=== PATIENT | female | born 1935 | race Caucasian/White ===

== ENCOUNTER 2018-11-06 21:55 | Inpatient (IN) | payer MEDICARE, OTHER ==
[~2018-11-06] VITALS: Ht 144.8 cm; Wt 75.0 kg
[~2018-11-06 21:55] MED LIST: ASPI-535 PO; ESCITALOPRAM OXALATE; FOLIC ACID; HYDRALAZINE; LEVO1POW MC; LEVO25TA9 PO; LORA-396 PO; LOSA1TAB29 PO; METH2.5T21 PO; METOPROLOL; OMEP20CA16 PO; PARO-37 PO; REMI IV; SIMV20TA2 PO; VASCEPA; VITAMIN D
[2018-11-07] MEDS ORDERED: ONDANSETRON 4 MG INJ IV STA (01:02)
[2018-11-07] MEDS ORDERED: morphine 2 MG INJ IV STA (01:02)
[2018-11-07] MEDS ORDERED: SOD CHLORIDE 0.9% 500 ML IV STA (01:02)
[2018-11-07] MEDS ORDERED: metroNIDAZOLE 500 MG/NS (PMX) 100 ML IVPB ONE (04:30)
[2018-11-07] MEDS ORDERED: CIPROFLOXACIN 400MG/D5W 200 ML IVPB ONE (04:30)
--- NOTE | 2018-11-07 04:48 | ERD ---
ER Documentation Chief Complaint Chief Complaint PT reports vomiting and diarrhea x 2 days HPI Is a very pleasant 83 female comes in with vomiting during the past 2 days. She has episodes of vomiting nonbilious and nonbloody. 2 episodes of diarrhea nonbloody nonbloody ROS All systems reviewed and are negative except as per history of present illness. Medications Home Meds Reported Medications Levocetirizine Dihydrochloride (LEVOCETIRIZINE DIHYDROCHLORIDE) 1 Gm Powder, 1 G M MC 05/03/16 [Hydralazine] No Conflict Check 05/03/16 [Metoprolol] No Conflict Check 05/03/16 [Escitalopram Oxalate] No Conflict Check 05/03/16 [Vascepa] No Conflict Check 05/03/16 [Vitamin D] No Conflict Check 05/03/16 [Folic Acid] No Conflict Check 05/03/16 Infliximab (Remicade) 100 Mg Soln, 100 MG IV 6 WEEKS 12/14/11 Levothyroxine Sodium (Levothroid) 25 Mcg Tablet, 25 MCG PO DAILY 12/14/11 Simvastatin (Simvastatin) 20 Mg Tablet, 20 MG PO DAILY 12/14/11 Lorazepam* (Ativan*) 0.5 Mg Tablet, 0.5 MG PO DAILY 12/14/11 Paroxetine Hcl* (Paroxetine*) 20 Mg Tablet, 20 MG PO DAILY 12/14/11 Omeprazole* (Omeprazole*) 20 Mg Capsule.dr, 20 MG PO AC MEALS AND BEDTIME 12/14/11 Losartan/Hydrochlorothiazide (Hyzaar 100-25 Tablet) 1 Tab Tablet, 1 TAB PO DAILY 12/14/11 Methotrexate Sodium (Methotrexate) 2.5 Mg/Dose-Pack Tab.ds.pk, 2.5 MG PO DAILY 12/14/11 Aspirin Ec (Aspir 81) 81 Mg Tablet.dr, 81 MG PO DAILY 12/14/11 Allergies Allergies: Coded Allergies: No Known Drug Allergies (Verified Allergy, 06/22/13) PMhx/Soc History of Surgery: Yes (PACEMAKER IMPLANT, BACK SURGERY, CATARACT SURGERY) Anesthesia Reaction: No Hx Neurological Disorder: No Hx Respiratory Disorders: No Hx Cardiac Disorders: Yes (HYPERTENSION, PACEMAKER,afib) Hx Psychiatric Problems: Yes (DEPRESSION) Hx Miscellaneous Medical Probl: Yes (HYPERLIPIDEMIA) Hx Alcohol Use: No Hx Substance Use: No Hx Tobacco Use: No Smoking Status: Never smoker Physical Exam Vitals Vital Signs Date Temp Pulse Resp B/P (MAP) Pulse Ox O2 O2 Flow FiO2 Time Delivery Rate 11/07/18 101 14 129/82 98 Room Air 03:30 (98) 11/06/18 97.6 115 24 160/80 100 22:50 (106) Physical Exam Const: No acute distress Head: Atraumatic Eyes: Normal Conjunctiva ENT: Normal External Ears, Nose and Mouth. Neck: Full range of motion. No meningismus. Resp: Clear to auscultation bilaterally Cardio: Regular rate and rhythm, no murmurs Abd: Soft, non tender, non distended. Normal bowel sounds Skin: No petechiae or rashes Back: No midline or flank tenderness Ext: No cyanosis, or edema Neur: Awake and alert Psych: Normal Mood and Affect Result Diagram: 11/07/18 01311/07/18 0130 Results 24 hrs Laboratory Tests Test 11/07/18 01:30 White Blood Count 8.5 10^3/ul Red Blood Count 4.04 10^6/ul Hemoglobin 12.9 g/dl Hematocrit 39.3 % Mean Corpuscular Volume 97.3 fl Mean Corpuscular Hemoglobin 31.9 pg Mean Corpuscular Hemoglobin Concent 32.8 g/dl Red Cell Distribution Width 19.0 % Platelet Count 147 10^3/UL Mean Platelet Volume 11.4 fl Immature Granulocytes % 0.200 % Neutrophils % 61.0 % Lymphocytes % 32.6 % Monocytes % 6.0 % Eosinophils % 0.1 % Basophils % 0.1 % Nucleated Red Blood Cells % 0.2 /100WBC Immature Granulocytes # 0.020 10^3/ul Neutrophils # 5.2 10^3/ul Lymphocytes # 2.8 10^3/ul Monocytes # 0.5 10^3/ul Eosinophils # 0.0 10^3/ul Basophils # 0.0 10^3/ul Nucleated Red Blood Cells # 0.0 10^3/ul Sodium Level 139 mmol/L Potassium Level 3.6 mmol/L Chloride Level 102 mmol/L Carbon Dioxide Level 26 mmol/L Anion Gap 11 Blood Urea Nitrogen 43 mg/dl Creatinine 1.53 mg/dl Est Glomerular Filtrat Rate mL/min mL/min Glucose Level 106 mg/dl Calcium Level 8.3 mg/dl Total Bilirubin 1.0 mg/dl Direct Bilirubin 0.00 mg/dl Indirect Bilirubin 1.0 mg/dl Aspartate Amino Transf (AST/SGOT) 95 IU/L Alanine Aminotransferase (ALT/SGPT) 120 IU/L Alkaline Phosphatase 104 IU/L Troponin I 0.045 ng/ml Total Protein 6.4 g/dl Albumin 3.5 g/dl Globulin 2.90 g/dl Albumin/Globulin Ratio 1.20 Lipase 76 U/L Current Medications Medications Dose Sig/Eze Start Time Status Last (Trade) Ordered Route PRN Stop Time Admin Dose Reason Admin Sodium 500 ml @ Q1H STAT 11/07/18 DC 11/07/18 Chloride 500 mls/hr IV 01:02 11/07/18 01:02 02:01 Morphine 2 mg ONCE STAT 11/07/18 DC Sulfate IV 01:02 11/07/18 (morphine) 01:03 Ondansetron 4 mg ONCE STAT 11/07/18 DC HCl (Zofran IV 01:02 11/07/18 Inj) 01:03 200 ml @ ONCE ONCE 11/07/18 Ciprofloxacin 200 mls/hr IVPB 04:30 11/07/18 / Dextrose 05:29 100 ml @ ONCE ONCE 11/07/18 11/07/18 Metronidazole 100 mls/hr IVPB 04:30 11/07/18 04:42 05:29 Ondansetron 4 mg BRIDGE ORDER 11/07/18 HCl (Zofran PRN IV 05:00 11/08/18 Inj) NAUSEA/VOMITI 04:59 NG 650 mg ER BRIDGE 11/07/18 Acetaminophen PRN PO 05:00 11/08/18 (Tylenol .MILD PAIN 04:59 Tab) 1-3 OR TEMP Procedures/MDM EKG: Rate/Rhythm: Normal Sinus Rhythm QRS, ST, T-waves: No changes consistent w/ acute ischemia Impression: No evidence of ischemia or arrhythmia Chest X-ray 1V Interpreted by me: Soft Tissue: No acute abnormalities Bones: No acute abnormalities Mediastinum/Cardiac Silhouette/Lungs: No acute abnormalities Medical decision making: This is an 83-year-old female who comes in with evidence of colitis on CT. She is on Cipro Flagyl. Patient will be admitted to Dr. Dempsey who kindly accepted the patient to his service Departure Diagnosis: Primary Impression: Colitis Condition: Serious JAZZMINE CORRALES Nov 07, 2018 04:48
[2018-11-07] MEDS ORDERED: ACETAMINOPHEN 325 MG TAB PO PRN ×2 (05:00→10:00)
[2018-11-07] MEDS ORDERED: ONDANSETRON 4 MG INJ IV PRN (05:00)
[2018-11-07] MEDS ORDERED: DICL75TA2 PO (05:13)
[2018-11-07] MEDS ORDERED: CHOL200073 PO (05:13)
[2018-11-07] MEDS ORDERED: AMLO5TAB4 PO (05:13)
[2018-11-07] MEDS ORDERED: FURO20TA3 PO (05:13)
[2018-11-07] MEDS ORDERED: ICOS1CAP PO (05:13)
[2018-11-07] MEDS ORDERED: LOSA100T15 PO (05:13)
[2018-11-07] MEDS ORDERED: ESOM20CA37 PO (05:13)
[2018-11-07] MEDS ORDERED: METO-407 PO (05:13)
[2018-11-07] MEDS ORDERED: DONE10TA7 PO (05:13)
[2018-11-07] MEDS ORDERED: AMIO200T4 PO (05:13)
[2018-11-07] MEDS ORDERED: LINA145C PO (05:13)
[2018-11-07] MEDS ORDERED: EZET10TA31 PO (05:13)
[2018-11-07] MEDS ORDERED: ESCI20TA38 PO (05:13)
[2018-11-07] MEDS ORDERED: FOLI-49 PO (05:13)
[2018-11-07] MEDS ORDERED: CALC600T24 PO (05:13)
[2018-11-07] MEDS ORDERED: APIX2.5T PO (05:13)
[2018-11-07] MEDS ORDERED: FER325 PO (05:13)
[2018-11-07 08:42] VITALS: BP 119/73; PULSE 110; RESP 20
[2018-11-07 09:17] VITALS: Ht 144.8 cm; Wt 75.0 kg
[2018-11-07] MEDS ORDERED: SOD CHLORIDE 0.9% 500 ML IV ONE (10:00)
[2018-11-07] MEDS ORDERED: METOPROLOL 25 MG TAB PO SCH (10:30)
[2018-11-07] MEDS ORDERED: LOPERAMIDE 2 MG CAP PO PRN (10:30)
--- NOTE | 2018-11-07 11:37 | HP ---
Date/Time of Note Date/Time of Note DATE: 11/07/18 TIME: 11:27 Assessment/Plan VTE Prophylaxis SCD applied (from Nsg): Yes Pharmacological prophylaxis: apixaban Lines/Catheters IV Catheter Type (from Nrsg): Saline Lock Assessment/Plan Assessment/Plan -Nausea vomiting and diarrhea for 2 days. Will obtain stool for C. difficile, o va and parasites. Dr. Merchant is asked to see patient in gastroenterology consultation. -Colitis per CT scan. Continue Levaquin and Flagyl. -UTI per UA, follow-up on urine culture -CHF, continue Lasix -Atrial fibrillation, continue Eliquis and metoprolol -Hypertension, continue metoprolol Norvasc and Cozaar -PPM -Hypothyroidism -Rheumatoid arthritis Home medication reviewed and discussed with daughter in details. Further recommendations based on clinical course. Plan of care discussed with Dr. Rayo. Result Diagram: 11/07/18 0130 11/07/18 0130 Results 24hrs Laboratory Tests Test 11/07/18 01:30 11/07/18 09:36 White Blood Count 8.5 Red Blood Count 4.04 L Hemoglobin 12.9 Hematocrit 39.3 Mean Corpuscular Volume 97.3 Mean Corpuscular Hemoglobin 31.9 Mean Corpuscular Hemoglobin Concent 32.8 Red Cell Distribution Width 19.0 H Platelet Count 147 Mean Platelet Volume 11.4 H Immature Granulocytes % 0.200 Neutrophils % 61.0 Lymphocytes % 32.6 Monocytes % 6.0 Eosinophils % 0.1 Basophils % 0.1 Nucleated Red Blood Cells % 0.2 H Immature Granulocytes # 0.020 Neutrophils # 5.2 Lymphocytes # 2.8 Monocytes # 0.5 Eosinophils # 0.0 Basophils # 0.0 Nucleated Red Blood Cells # 0.0 Sodium Level 139 Potassium Level 3.6 Chloride Level 102 Carbon Dioxide Level 26 Anion Gap 11 Blood Urea Nitrogen 43 H Creatinine 1.53 H Est Glomerular Filtrat Rate mL/min Glucose Level 106 Calcium Level 8.3 L Total Bilirubin 1.0 Direct Bilirubin 0.00 Indirect Bilirubin 1.0 Aspartate Amino Transf (AST/SGOT) 95 H Alanine Aminotransferase (ALT/SGPT) 120 H Alkaline Phosphatase 104 Troponin I 0.045 Total Protein 6.4 Albumin 3.5 Globulin 2.90 Albumin/Globulin Ratio 1.20 Lipase 76 Urine Color YELLOW Urine Clarity CLEAR Urine pH 5.[address] 1.017 Urine Ketones NEGATIVE Urine Nitrite NEGATIVE Urine Bilirubin NEGATIVE Urine Urobilinogen NEGATIVE Urine Leukocyte Esterase 1+ H Urine Microscopic RBC 1 Urine Microscopic WBC 36 H Urine Bacteria FEW A Urine Hemoglobin NEGATIVE Urine Glucose NEGATIVE Urine Total Protein NEGATIVE HPI/ROS Admit Date/Time Admit Date/Time Nov 07, 2018 at 04:47 Hx of Present Illness Patient is 83-year-old female with history of congestive heart failure, hypertension, atrial fibrillation, PPM, hyperlipidemia, thyroidism, dementia, rheumatoid arthritis was brought from home for complaints of vomiting and diarrhea for 2 days and generalized weakness. Patient follows with Dr. Kamara in cardiology consultation as an outpatient and according to patient's daughters had recent angiogram which was negative. Patient also complains of productive sputum however no cough patient denies any fever chills. Patient had difficulty urinating earlier today however currently is able to urinate. Patient underwent CT of the abdomen and pelvis which revealed nonspecific colitis and right basilar atelectasis/infiltrate, and septal nodular contour of the liver which can be seen in settings of cirrhosis. Patient denies history of hepatitis or alcohol use. Analysis is positive for leukocyte esterase and bacteria. Patient is admitted for further evaluation and management. ROS 12 point review of system is negative except for what mentioned in HPI PMH/Family/Social Past Medical History Medical History: congestive heart failure, high cholesterol, hypertension, hypothyroid, other (PPM, atrial fibrillation) Medications Current Medications Potassium Chloride/Dextrose/ Sod Cl 1,000 ml @ 75 mls/hr [id number] IV ; Start 11/07/18 at 10:00 Ciprofloxacin/ Dextrose 200 ml @ 200 mls/hr Q24H IVPB ; Start 11/08/18 at 03:00 Metronidazole 100 ml @ 100 mls/hr Q8 IVPB ; Start 11/07/18 at 14:00 Acetaminophen (Tylenol Tab) 650 mg Q6H PRN PO MILD PAIN(1-3)OR ELEVATED TEMP; Start 11/07/18 at 10:00 Metoprolol Tartrate (Lopressor) 25 mg BID PO ; Start 11/07/18 at 10:30 Loperamide HCl (Imodium Cap) 2 mg QID PRN PO DIARRHEA; Start 11/07/18 at 10:30 Coded Allergies: No Known Drug Allergies (Unverified Allergy, Unknown, 11/07/18) Past Surgical History Past Surgical Hx: other (Status post PPM placement 2014, status post low back surgery in 2009 status post bilateral cataract surgery) Family History Significant Family History: no pertinent family hx Social History Alcohol Use: none Smoking Status: Never smoker Drug Use: none Exam/Review of Systems Vital Signs Vitals Vital Signs Date Temp Pulse Resp B/P (MAP) Pulse Ox O2 O2 Flow FiO2 Time Delivery Rate 11/07/18 97.6 110 20 119/73 98 Room Air 08:42 (88) Exam Constitutional: alert, oriented Head: normocephalic Respiratory: clear to auscultation Cardiovascular: irregular rhythm, other (L chest PPM) Gastrointestinal: soft, non-tender Musculoskeletal: nl extremities to inspection Extremities: normal pulses Neurological: nl mental status OSCAR GAYTAN Nov 07, 2018 11:37
[2018-11-07 11:51] VITALS: BP 128/72; PULSE 106
[2018-11-07] MEDS: D5W-0.45 NACL + KCL 20 MEQ 1,000 ML IV SCH (11:53)
[2018-11-07] MEDS ORDERED: METOPROLOL 100 MG TAB PO SCH (12:00)
[2018-11-07] MEDS ORDERED: LEVOTHYROXINE 25 MCG TAB PO SCH (12:00)
[2018-11-07] MEDS: metroNIDAZOLE 500 MG/NS (PMX) 100 ML IVPB SCH ×2 (14:06→22:15)
[2018-11-07] MEDS: FERROUS SULFATE (EC) 325 MG TAB PO SCH ×2 (14:07→21:13)
[2018-11-07] MEDS: APIXABAN 5 MG TABLET PO SCH ×2 (14:07→21:13)
[2018-11-07 15:12] VITALS: BP 124/56; PULSE 105; RESP 18
[2018-11-07 20:30] VITALS: BP 108/65; PULSE 102; RESP 18
--- NOTE | 2018-11-07 20:49 | CONS ---
DATE OF ADMISSION: 11/07/2018 DATE OF CONSULTATION: 11/07/2018 Thank you for asking me to evaluate your patient who is a pleasant 83-year-old female who comes to [facility] complaining of nausea, vomiting and diarrhea of 2 days' duration. The patient denies any abdominal pain. Nausea and vomiting have subsided. There is no more diarrhea, no fever, no chills. Her only complaint is generalized weakness. The patient was seen 3 days ago by the composing room supervisor as an outpatient, had angiogram which was normal as per the daughter. The patient has got a pacemaker. No history of eating any restaurant food or eating outside. No circumstantial evidence of food poiso gabriela. No travel to the foreign country. She had a CAT scan of the abdomen and pelvis which showed n ondistended right colon rather than a mild colitis. SOCIAL HISTORY: No history of alcohol, recreational drug or smoking. REVIEW OF SYSTEMS: Otherwise negative. PAST MEDICAL HISTORY: Hypothyroidism, status post pacemaker insertion, atrial fibrillation, history of CHF and dyslipidemia. MEDICATIONS: All reviewed. She was on: 1. Cipro. 2. Flagyl. PHYSICAL EXAMINATION: GENERAL: Looks good for her age, well built, nourished, not in distress. VITAL SIGNS: Stable. HEENT: Unremarkable. NECK: Supple. No thyromegaly. No lymphadenopathy. CARDIOVASCULAR SYSTEM: No murmur, gallop or click. LUNGS: Clear. ABDOMEN: Benign. EXTREMITIES: No edema. CENTRAL NERVOUS SYSTEM: Grossly within normal limit. IMPRESSION: 1. Nausea, vomiting and diarrhea which have subsided now, most probably related to viral infection o r of infectious etiology. 2. Atrial fibrillation for which she is on Eliquis. 3. Status post pacemaker insertion. 4. Dyslipidemia. 5. Hypothyroidism. 6. Hypertension. PLAN: Plan is to continue Cipro and Flagyl. We will send for a TSH level to find out the cause of h er chronic fatigue and make sure the patient is not hypothyroid. Encouraged p.o. hydration and p.o. feeding. We will review all the cultures and C. difficile report which has been sent. Dictated By: TONY HERNANDEZ/CHRISTIE Conf#: [id number] DID#: [id number] CC: OSCAR GAYTAN NP; REJI KAUFFMAN MD;*EndCC*
[2018-11-07] MEDS: METOPROLOL 50 MG TAB PO SCH ×2 (21:00→22:41)
[2018-11-07] MEDS: FUROSEMIDE 20 MG TAB PO SCH (22:29)
[2018-11-08] VITALS (15 sets, daily range): BP systolic 102–138; BP diastolic 64–97; PULSE 73–121; RESP 16–28
[2018-11-08] MEDS ORDERED: CIPROFLOXACIN 400MG/D5W 200 ML IVPB SCH (03:00)
[2018-11-08] MEDS: metroNIDAZOLE 500 MG/NS (PMX) 100 ML IVPB SCH (06:00)
[2018-11-08] MEDS: PANTOPRAZOLE (EC) 40 MG TAB PO SCH (06:14)
[2018-11-08] MEDS: D5W-0.45 NACL + KCL 20 MEQ 1,000 ML IV SCH ×2 (06:39→14:09)
[2018-11-08] MEDS: LEVOTHYROXINE 25 MCG TAB PO SCH (06:42)
[2018-11-08] MEDS ORDERED: LOSARTAN 50 MG TAB PO SCH (09:00)
[2018-11-08] MEDS: FERROUS SULFATE (EC) 325 MG TAB PO SCH ×3 (09:15→21:04)
[2018-11-08] MEDS: EZETIMIBE 10 MG TAB PO SCH (09:15)
[2018-11-08] MEDS: METOPROLOL 50 MG TAB PO SCH (09:15)
[2018-11-08] MEDS: AMIODARONE 200 MG TAB PO SCH (09:15)
[2018-11-08] MEDS: CHOLECALCIFEROL 2,000 UNIT CAP PO SCH (09:16)
[2018-11-08] MEDS: DONEPEZIL 10 MG TAB PO SCH (09:16)
[2018-11-08] MEDS: FOLIC ACID 1 MG TAB PO SCH (09:16)
[2018-11-08] MEDS: APIXABAN 5 MG TABLET PO SCH ×2 (09:17→21:06)
[2018-11-08] MEDS: ESCITALOPRAM 10 MG TAB PO SCH (09:17)
[2018-11-08] MEDS: FUROSEMIDE 20 MG TAB PO SCH (09:17)
[2018-11-08] MEDS ORDERED: METOPROLOL 50 MG TAB PO ONE (11:00)
[2018-11-08] MEDS ORDERED: METOPROLOL 100 MG TAB PO ONE (14:30)
--- NOTE | 2018-11-08 14:34 | CONS ---
Assessment/Plan Assessment/Plan Hospital Course (Demo Recall) Atrial fibrillation with initially rapid ventricular rates, improved Mild acute decompensated congestive heart failure Possible colitis Hypertension Dyslipidemia History of pacemaker As per daughter, patient was brought to the hospital secondary to heart rates in the 120s to 150s. Patient was asymptomatic but this was discovered by the daughter who checks her mother's vitals routinely Patient undergoing evaluation for possible colitis Heart rates currently improved, as per the daughter, patient was on Lopressor 200 mg daily, would adjust her milligrams twice daily for better 24-hour co verage Furthermore, daughter tells me the patient was at [facility] the end of October underwent a cardiac catheterization and as per the daughter, it was normal Will check echocardiogram No evidence of significant volume overload the current time, given elevated BUN/creatinine ratio, would continue maintenance diuretics at the current time Consultation Date/Type/Reason Admit Date/Time Nov 07, 2018 at 04:47 Type of Consult Cardiology Reason for Consultation Atrial fibrillation Date/Time of Note DATE: 11/08/18 TIME: 14:29 Hx of Present Illness This is an 83-year-old female with past mental history of atrial fibrillation on anticoagulation, congestive heart failure, pacemaker who presents emergency room secondary to increased lower extremity edema as well as rapid heart rates. When asked patient's daughter why she brought the patient to hospital, she tells me her heart rate was in the 120s to 150s at home. Patient was asymptomatic. Patient denies any palpitations, chest pain or shortness of breath. Patient's daughter has noticed increased lower extremity swelling which has improved with Lasix. Patient denies any abdominal pain currently, nausea or vomiting. 12 point review of systems was performed with all pertinent positives and negatives mentioned above and all else is negative Past Medical History Atrial fibrillation Medical History: congestive heart failure, hypertension Home Meds Reported Medications Icosapent Ethyl (VASCEPA) 1 Gm Capsule, 1 GM PO QID, CAP 11/07/18 Linaclotide (LINZESS) 145 Mcg Capsule, 145 MCG PO DAILY, #30 CAP 11/07/18 Furosemide* (Furosemide*) 20 Mg Tablet, 20 MG PO DAILY, #60 TAB 11/07/18 Ferrous Sulfate* (Ferrous Sulfate*) 325 Mg Tabec, 325 MG PO TID, TAB 11/07/18 Diclofenac Sodium* (Diclofenac Sodium*) 75 Mg Tablet.dr, 75 MG PO BID, #60 TAB 11/07/18 Cholecalciferol (Vitamin D3) (VITAMIN D-3) 2,000 Unit Capsule, 2000 UNIT PO, CAP 11/07/18 Esomeprazole Magnesium (Esomeprazole Magnesium) 20 Mg Capsule.dr, 20 MG PO BEFORE BREAKFAST, #30 CAP 11/07/18 Escitalopram Oxalate* (Escitalopram Oxalate*) 20 Mg Tablet, 20 MG PO DAILY, #30 TAB 11/07/18 Losartan Potassium* (Losartan Potassium*) 100 Mg Tablet, 100 MG PO DAILY, TAB 11/07/18 Calcium Carbonate* (Calcium Carbonate*) 600 MG Ca Tab, 600 MG PO, TAB 11/07/18 Folic Acid* (Folic Acid*) 1 Mg Tablet, 1 MG PO DAILY, TAB 11/07/18 Apixaban* (Eliquis*) 2.5 Mg Tablet, 2.5 MG PO BID, TAB 11/07/18 Metoprolol Tartrate* (Lopressor*) 100 Mg Tablet, 200 MG PO BID, #120 TAB 11/07/18 Ezetimibe* (Zetia*) 10 Mg Tablet, 10 MG PO DAILY, TAB 11/07/18 Donepezil* (Donepezil*) 10 Mg Tablet, 10 MG PO DAILY, #30 TAB 11/07/18 Amiodarone Hcl* (Amiodarone Hcl*) 200 Mg Tablet, 100 MG PO BID for [id number], #60 TAB 11/07/18 Amlodipine Besylate* (Norvasc*) 5 Mg Tablet, 5 MG PO DAILY, TAB 11/07/18 Levocetirizine Dihydrochloride (LEVOCETIRIZINE DIHYDROCHLORIDE) 1 Gm Powder, 1 GM MC 05/03/16 Infliximab (Remicade) 100 Mg Soln, 100 MG IV 6 WEEKS 12/14/11 Levothyroxine Sodium (Levothroid) 25 Mcg Tablet, 25 MCG PO DAILY 12/14/11 Simvastatin (Simvastatin) 20 Mg Tablet, 20 MG PO DAILY 12/14/11 Lorazepam* (Ativan*) 0.5 Mg Tablet, 0.5 MG PO DAILY 12/14/11 Omeprazole* (Omeprazole*) 20 Mg Capsule.dr, 20 MG PO AC MEALS AND BEDTIME 12/14/11 Methotrexate Sodium (Methotrexate) 2.5 Mg/Dose-Pack Tab.ds.pk, 2.5 MG PO DAILY 12/14/11 Aspirin Ec (Aspir 81) 81 Mg Tablet.dr, 81 MG PO DAILY 12/14/11 Discontinued Reported Medications [Hydralazine] No Conflict Check 05/03/16 [Metoprolol] No Conflict Check 05/03/16 [Escitalopram Oxalate] No Conflict Check 05/03/16 [Vascepa] No Conflict Check 05/03/16 [Vitamin D] No Conflict Check 05/03/16 [Folic Acid] No Conflict Check 05/03/16 Paroxetine Hcl* (Paroxetine*) 20 Mg Tablet, 20 MG PO DAILY 12/14/11 Losartan/Hydrochlorothiazide (Hyzaar 100-25 Tablet) 1 Tab Tablet, 1 TAB PO DAILY 12/14/11 Medications Current Medications Potassium Chloride/Dextrose/ Sod Cl 1,000 ml @ 75 mls/hr [id number] IV Last administered on 11/08/18 14:09; Admin Dose 75 MLS/HR; Start 11/07/18 at 10:00 Ciprofloxacin/ Dextrose 200 ml @ 200 mls/hr Q24H IVPB Last administered on 11/08/18at 02:51; Admin Dose 200 MLS/HR; Start 11/08/18 at 03:00; Status Hold Metronidazole 100 ml @ 100 mls/hr Q8 IVPB Last administered on 11/07/18at 22:15; Admin Dose 100 MLS/HR; Start 11/07/18 at 14:00; Status Hold Acetaminophen (Tylenol Tab) 650 mg Q6H PRN PO MILD PAIN(1-3)OR ELEVATED TEMP; Start 11/07/18 at 10:00 Loperamide HCl (Imodium Cap) 2 mg QID PRN PO DIARRHEA; Start 11/07/18 at 10:30 Amiodarone HCl (Cordarone) 100 mg DAILY PO Last administered on 11/08/18 09:15; Admin Dose 100 MG; Start 11/08/18 at 09:00 Apixaban (Eliquis) 2.5 mg BID PO Last administered on 11/08/18 09:17; Admin Dose 2.5 MG; Start 11/07/18 at 12:00 Cholecalciferol (Vitamin D) 2,000 unit DAILY PO Last administered on 11/08/18 09:16; Admin Dose 2,000 UNIT; Start 11/08/18 at 09:00 Donepezil HCl (Aricept) 10 mg DAILY PO Last administered on 11/08/18 09:16; Admin Dose 10 MG; Start 11/08/18 at 09:00 Escitalopram Oxalate (Lexapro) 20 mg DAILY PO Last administered on 11/08/18 09:17; Admin Dose 20 MG; Start 11/08/18 at 09:00 EZETIMIBE (Zetia) 10 mg DAILY PO Last administered on 11/08/18at 09:15; Admin Dose 10 MG; Start 11/08/18 at 09:00 Ferrous Sulfate (Ferrous Sulfate (Ec)) 325 mg TID PO Last administered on 11/08/18at 12:09; Admin Dose 325 MG; Start 11/07/18 at 13:00 Folic Acid (Folic Acid) 1 mg DAILY PO Last administered on 11/08/18at 09:16; Admin Dose 1 MG; Start 11/08/18 at 09:00 Furosemide (Lasix) 20 mg DAILY PO Last administered on 11/08/18 09:17; Admin Dose 20 MG; Start 11/07/18 at 22:00 Losartan Potassium (Cozaar) 100 mg DAILY PO Last administered on 11/08/18 09:16; Admin Dose 100 MG; Start 11/08/18 at 09:00 Pantoprazole (Protonix Tab) 40 mg DAILY@06 PO Last administered on 11/08/18at 06:14; Admin Dose 40 MG; Start 11/08/18 at 06:00 Levothyroxine Sodium (Synthroid) 25 mcg DAILY@0600 PO Last administered on 11/08/18at 06:42; Admin Dose 25 MCG; Start 11/08/18 at 06:30 Metoprolol Tartrate (Lopressor) 100 mg BID PO ; Start 11/08/18 at 21:00 Ondansetron HCl (Zofran Inj) 4 mg Q6H PRN IV NAUSEA AND/OR VOMITING; Start 11/08/18 at 10:30 Allergies: Coded Allergies: ciprofloxacin (Verified Allergy, Severe, 11/08/18) No Known Drug Allergies (Unverified Allergy, Unknown, 11/07/18) metronidazole (Verified Allergy, Unknown, 11/08/18) Past Surgical History Past Surgical Hx: other (Status post PPM placement 2014, status post low back surgery in 2009 status post bilateral cataract surgery) Family History Significant Family History: no pertinent family hx Social History Alcohol Use: none Smoking Status: Never smoker Drug Use: none Exam/Review of Systems Vital Signs Vitals Vital Signs Date Temp Pulse Resp B/P (MAP) Pulse Ox O2 O2 Flow FiO2 Time Delivery Rate 11/08/18 90 20 124/80 96 14:00 (95) 11/08/18 97.9 Room Air 12:00 Intake and Output 11/07/18 11/07/18 11/08/18 1515:00 23:00 07:00 IntakeIntake Total 1420 ml 420 ml 1620 ml OutputOutput Total 500 ml 200 ml BalanceBalance 920 ml 220 ml 1620 ml Exam Constitutional: alert, oriented (No apparent distress, following commands) Head: normocephalic Respiratory: other (Coarse breath sounds bilaterally, no wheezing) Cardiovascular: irregular rhythm (S1-S2 heard) Gastrointestinal: soft, non-tender, bowel sounds Extremities: edema (Trace ) Labs Result Diagram: 11/08/18 0808 11/08/18 0808 Results 24hrs Laboratory Tests Test 11/08/18 08:08 White Blood Count 7.5 Red Blood Count 4.17 L Hemoglobin 13.5 Hematocrit 41.5 Mean Corpuscular Volume 99.5 Mean Corpuscular Hemoglobin 32.4 Mean Corpuscular Hemoglobin Concent 32.5 Red Cell Distribution Width 19.2 H Platelet Count 147 Mean Platelet Volume 11.2 H Immature Granulocytes % 0.500 H Neutrophils % 54.6 Lymphocytes % 36.1 Monocytes % 8.2 Eosinophils % 0.3 Basophils % 0.3 Nucleated Red Blood Cells % 0.8 H Immature Granulocytes # 0.040 H Neutrophils # 4.1 Lymphocytes # 2.7 Monocytes # 0.6 Eosinophils # 0.0 Basophils # 0.0 Nucleated Red Blood Cells # 0.1 H Sodium Level 138 Potassium Level 3.9 Chloride Level 102 Carbon Dioxide Level 27 Anion Gap 9 Blood Urea Nitrogen 29 #H Creatinine 1.15 H Est Glomerular Filtrat Rate mL/min Glucose Level 136 Calcium Level 7.8 L Magnesium Level 1.8 Total Bilirubin 0.8 Direct Bilirubin 0.00 Indirect Bilirubin 0.8 Aspartate Amino Transf (AST/SGOT) 122 H Alanine Aminotransferase (ALT/SGPT) 153 H Alkaline Phosphatase 73 Total Protein 6.0 L Albumin 3.3 Globulin 2.70 Albumin/Globulin Ratio 1.22 Imaging Imaging ECG atrial fibrillation at 103 bpm, QRS 90 ms, poor R wave progression, nonspecific ST abnormalities Medications Medications Current Medications Potassium Chloride/Dextrose/ Sod Cl 1,000 ml @ 75 mls/hr [id number] IV Last administered on 11/08/18at 14:09; Admin Dose 75 MLS/HR; Start 11/07/18 at 10:00 Ciprofloxacin/ Dextrose 200 ml @ 200 mls/hr Q24H IVPB Last administered on 11/08/18at 02:51; Admin Dose 200 MLS/HR; Start 11/08/18 at 03:00; Status Hold Metronidazole 100 ml @ 100 mls/hr Q8 IVPB Last administered on 11/07/18 22:15; Admin Dose 100 MLS/HR; Start 11/07/18 at 14:00; Status Hold Acetaminophen (Tylenol Tab) 650 mg Q6H PRN PO MILD PAIN(1-3)OR ELEVATED TEMP; Start 11/07/18 at 10:00 Loperamide HCl (Imodium Cap) 2 mg QID PRN PO DIARRHEA; Start 11/07/18 at 10:30 Amiodarone HCl (Cordarone) 100 mg DAILY PO Last administered on 11/08/18 09:15; Admin Dose 100 MG; Start 11/08/18 at 09:00 Apixaban (Eliquis) 2.5 mg BID PO Last administered on 11/08/18 09:17; Admin Dose 2.5 MG; Start 11/07/18 at 12:00 Cholecalciferol (Vitamin D) 2,000 unit DAILY PO Last administered on 11/08/18 09:16; Admin Dose 2,000 UNIT; Start 11/08/18 at 09:00 Donepezil HCl (Aricept) 10 mg DAILY PO Last administered on 11/08/18 09:16; Admin Dose 10 MG; Start 11/08/18 at 09:00 Escitalopram Oxalate (Lexapro) 20 mg DAILY PO Last administered on 11/08/18 09:17; Admin Dose 20 MG; Start 11/08/18 at 09:00 EZETIMIBE (Zetia) 10 mg DAILY PO Last administered on 11/08/18 09:15; Admin Dose 10 MG; Start 11/08/18 at 09:00 Ferrous Sulfate (Ferrous Sulfate (Ec)) 325 mg TID PO Last administered on 11/08/18 12:09; Admin Dose 325 MG; Start 11/07/18 at 13:00 Folic Acid (Folic Acid) 1 mg DAILY PO Last administered on 11/08/18at 09:16; Admin Dose 1 MG; Start 11/08/18 at 09:00 Furosemide (Lasix) 20 mg DAILY PO Last administered on 11/08/18at 09:17; Admin Dose 20 MG; Start 11/07/18 at 22:00 Losartan Potassium (Cozaar) 100 mg DAILY PO Last administered on 11/08/18at 09:16; Admin Dose 100 MG; Start 11/08/18 at 09:00 Pantoprazole (Protonix Tab) 40 mg DAILY@06 PO Last administered on 11/08/18at 06:14; Admin Dose 40 MG; Start 11/08/18 at 06:00 Levothyroxine Sodium (Synthroid) 25 mcg DAILY@0600 PO Last administered on 11/08/18at 06:42; Admin Dose 25 MCG; Start 11/08/18 at 06:30 Metoprolol Tartrate (Lopressor) 100 mg BID PO ; Start 11/08/18 at 21:00 Ondansetron HCl (Zofran Inj) 4 mg Q6H PRN IV NAUSEA AND/OR VOMITING; Start 11/08/18 at 10:30 Perico Mayers DO Nov 08, 2018 14:34
[2018-11-08] MEDS: METOPROLOL 100 MG TAB PO SCH (21:00)
--- NOTE | 2018-11-08 21:35 | CONS ---
Assessment/Plan Assessment/Plan Assessment/Plan (Daily) IMPRESSION: 1. Nausea, vomiting and diarrhea which have subsided now, most probably related to viral infection or of infectious etiology. 2. Atrial fibrillation for which she is on Eliquis. 3. Status post pacemaker insertion. 4. Dyslipidemia. 5. Hypothyroidism. 6. Hypertension. Plan Patient's GI symptoms have improved. She is off Cipro and Flagyl. Her stool for C. difficile has been reported negative. I looked at the color of the stool it is normal color and it is a solid stool. Patient was in ICU for tachycardia and now he will be transferred back to the floor. Discussed with the family and will observe Consultation Date/Type/Reason Admit Date/Time Nov 07, 2018 at 12:41 Initial Consult Date Date/Time of Note DATE: 11/08/18 TIME: 21:34 24 HR Interval Summary Constitutional: improved Exam/Review of Systems Exam Vitals Vital Signs Date Temp Pulse Resp B/P (MAP) Pulse Ox O2 O2 Flow FiO2 Time Delivery Rate 11/08/18 106 25 138/76 97 18:00 (96) 11/08/18 97.6 Room Air 16:00 Intake and Output 11/07/18 11/07/18 11/08/18 1515:00 23:00 07:00 IntakeIntake Total 1420 ml 420 ml 1620 ml OutputOutput Total 500 ml 200 ml BalanceBalance 920 ml 220 ml 1620 ml Constitutional: alert, oriented, well developed Psych: no complaints, nl mood/affect Head: normocephalic, atraumatic Eyes: nl conjunctiva, EOMI, nl lids, nl sclera, PERRL ENMT: nl external ears & nose, nl lips & teeth, nl nasal mucosa & septum Neck: supple, non-tender Respiratory: clear to auscultation, normal air movement Cardiovascular: regular rate and rhythm, nl pulses Gastrointestinal: soft, nl liver, spleen, non-tender Musculoskeletal: nl extremities to inspection, nl gait and stance Extremities: normal pulses Neurological: CASKET TRIMMER II-XII intact, nl mental status, nl speech, nl strength Skin: nl turgor; No rash or lesions Lymph: nl lymph nodes Results Result Diagram: 11/08/18 0808 11/08/18 0808 Results 24hrs Laboratory Tests Test 11/08/18 08:08 White Blood Count 7.5 Red Blood Count 4.17 L Hemoglobin 13.5 Hematocrit 41.5 Mean Corpuscular Volume 99.5 Mean Corpuscular Hemoglobin 32.4 Mean Corpuscular Hemoglobin Concent 32.5 Red Cell Distribution Width 19.2 H Platelet Count 147 Mean Platelet Volume 11.2 H Immature Granulocytes % 0.500 H Neutrophils % 54.6 Lymphocytes % 36.1 Monocytes % 8.2 Eosinophils % 0.3 Basophils % 0.3 Nucleated Red Blood Cells % 0.8 H Immature Granulocytes # 0.040 H Neutrophils # 4.1 Lymphocytes # 2.7 Monocytes # 0.6 Eosinophils # 0.0 Basophils # 0.0 Nucleated Red Blood Cells # 0.1 H Sodium Level 138 Potassium Level 3.9 Chloride Level 102 Carbon Dioxide Level 27 Anion Gap 9 Blood Urea Nitrogen 29 #H Creatinine 1.15 H Est Glomerular Filtrat Rate mL/min Glucose Level 136 Calcium Level 7.8 L Magnesium Level 1.8 Total Bilirubin 0.8 Direct Bilirubin 0.00 Indirect Bilirubin 0.8 Aspartate Amino Transf (AST/SGOT) 122 H Alanine Aminotransferase (ALT/SGPT) 153 H Alkaline Phosphatase 73 Total Protein 6.0 L Albumin 3.3 Globulin 2.70 Albumin/Globulin Ratio 1.22 Medications Medication Current Medications Potassium Chloride/Dextrose/ Sod Cl 1,000 ml @ 75 mls/hr [id number] IV Last admi nistered on 11/08/18at 14:09; Admin Dose 75 MLS/HR; Start 11/07/18 at 10:00 Ciprofloxacin/ Dextrose 200 ml @ 200 mls/hr Q24H IVPB Last administered on 11/08/18at 02:51; Admin Dose 200 MLS/HR; Start 11/08/18 at 03:00; Status Hold Metronidazole 100 ml @ 100 mls/hr Q8 IVPB Last administered on 11/07/18at 22:15; Admin Dose 100 MLS/HR; Start 11/07/18 at 14:00; Status Hold Acetaminophen (Tylenol Tab) 650 mg Q6H PRN PO MILD PAIN(1-3)OR ELEVATED TEMP; Start 11/07/18 at 10:00 Loperamide HCl (Imodium Cap) 2 mg QID PRN PO DIARRHEA; Start 11/07/18 at 10:30 Amiodarone HCl (Cordarone) 100 mg DAILY PO Last administered on 11/08/18at 09:15; Admin Dose 100 MG; Start 11/08/18 at 09:00 Apixaban (Eliquis) 2.5 mg BID PO Last administered on 11/08/18 21:06; Admin Dose 2.5 MG; Start 11/07/18 at 12:00 Cholecalciferol (Vitamin D) 2,000 unit DAILY PO Last administered on 11/08/18 09:16; Admin Dose 2,000 UNIT; Start 11/08/18 at 09:00 Donepezil HCl (Aricept) 10 mg DAILY PO Last administered on 11/08/18 09:16; Admin Dose 10 MG; Start 11/08/18 at 09:00 Escitalopram Oxalate (Lexapro) 20 mg DAILY PO Last administered on 11/08/18 09:17; Admin Dose 20 MG; Start 11/08/18 at 09:00 EZETIMIBE (Zetia) 10 mg DAILY PO Last administered on 11/08/18 09:15; Admin Dose 10 MG; Start 11/08/18 at 09:00 Ferrous Sulfate (Ferrous Sulfate (Ec)) 325 mg TID PO Last administered on 11/08/18 21:04; Admin Dose 325 MG; Start 11/07/18 at 13:00 Folic Acid (Folic Acid) 1 mg DAILY PO Last administered on 11/08/18 09:16; Admin Dose 1 MG; Start 11/08/18 at 09:00 Furosemide (Lasix) 20 mg DAILY PO Last administered on 11/08/18 09:17; Admin Do se 20 MG; Start 11/07/18 at 22:00 Pantoprazole (Protonix Tab) 40 mg DAILY@06 PO Last administered on 11/08/18 06:14; Admin Dose 40 MG; Start 11/08/18 at 06:00 Levothyroxine Sodium (Synthroid) 25 mcg DAILY@0600 PO Last administered on 11/08/18 06:42; Admin Dose 25 MCG; Start 11/08/18 at 06:30 Metoprolol Tartrate (Lopressor) 100 mg BID PO ; Start 11/08/18 at 21:00 Ondansetron HCl (Zofran Inj) 4 mg Q6H PRN IV NAUSEA AND/OR VOMITING; Start 11/08/18 at 10:30 Losartan Potassium (Cozaar) 50 mg DAILY PO ; Start 11/09/18 at 09:00 TONY SHETTY MD Nov 08, 2018 21:35
--- NOTE | 2018-11-08 22:08 | PN ---
Date/Time of Note Date/Time of Note DATE: 11/08/18 TIME: 21:58 Assessment/Plan VTE Prophylaxis Risk score (from Ns)>0 risk: 4 SCD applied (from [facility] [place] Yes Pharmacological prophylaxis: apixaban Lines/Catheters IV Catheter Type (from [facility]): Peripheral IV Assessment/Plan Hospital Course Pt was transferred to ICU due to tachycardia, pt should be continues on Metoprolol 100 mg BID. Pt denies chest pain, denies N/V. Assessment/Plan -Atrial fibrillation with initially rapid ventricular rates, improved. continue Eliquis and metoprolol. Dr Mayers is following in cardiology consultation. -Nausea vomiting and diarrhea for 2 days. f/up on stool for C. difficile, ova and parasites. Dr. Merchant is asked to see patient in gastroenterology consultation. -Colitis per CT scan. S/p Levaquin and Flagyl. -UTI per UA, follow-up on urine culture -CHF, continue Lasix -Hypertension, continue metoprolol Norvasc and Cozaar -PPM -Hypothyroidism -Rheumatoid arthritis Further recommendations based on clinical course. Plan of care discussed with Dr. Rayo. Result Diagram: 11/08/18 0808 11/08/18 0808 Results 24hrs Laboratory Tests Test 11/08/18 08:08 White Blood Count 7.5 Red Blood Count 4.17 L Hemoglobin 13.5 Hematocrit 41.5 Mean Corpuscular Volume 99.5 Mean Corpuscular Hemoglobin 32.4 Mean Corpuscular Hemoglobin Concent 32.5 Red Cell Distribution Width 19.2 H Platelet Count 147 Mean Platelet Volume 11.2 H Immature Granulocytes % 0.500 H Neutrophils % 54.6 Lymphocytes % 36.1 Monocytes % 8.2 Eosinophils % 0.3 Basophils % 0.3 Nucleated Red Blood Cells % 0.8 H Immature Granulocytes # 0.040 H Neutrophils # 4.1 Lymphocytes # 2.7 Monocytes # 0.6 Eosinophils # 0.0 Basophils # 0.0 Nucleated Red Blood Cells # 0.1 H Sodium Level 138 Potassium Level 3.9 Chloride Level 102 Carbon Dioxide Level 27 Anion Gap 9 Blood Urea Nitrogen 29 #H Creatinine 1.15 H Est Glomerular Filtrat Rate mL/min Glucose Level 136 Calcium Level 7.8 L Magnesium Level 1.8 Total Bilirubin 0.8 Direct Bilirubin 0.00 Indirect Bilirubin 0.8 Aspartate Amino Transf (AST/SGOT) 122 H Alanine Aminotransferase (ALT/SGPT) 153 H Alkaline Phosphatase 73 Total Protein 6.0 L Albumin 3.3 Globulin 2.70 Albumin/Globulin Ratio 1.22 Exam/Review of Systems Exam Vitals Vital Signs Date Temp Pulse Resp B/P (MAP) Pulse Ox O2 O2 Flow FiO2 Time Delivery Rate 11/08/18 102 28 113/75 97 Room Air 21:00 (88) 11/08/18 97.8 20:00 Intake and Output 11/07/18 11/07/18 11/08/18 1515:00 23:00 07:00 IntakeIntake Total 1420 ml 420 ml 1620 ml OutputOutput Total 500 ml 200 ml BalanceBalance 920 ml 220 ml 1620 ml Exam Constitutional: alert, oriented Respiratory: clear to auscultation Cardiovascular: irregular rhythm, other (L chest PPM) Gastrointestinal: soft, non-tender Musculoskeletal: nl extremities to inspection Extremities: normal pulses Neurological: nl mental status Results Results 24hrs Laboratory Tests Test 11/08/18 08:08 White Blood Count 7.5 Red Blood Count 4.17 L Hemoglobin 13.5 Hematocrit 41.5 Mean Corpuscular Volume 99.5 Mean Corpuscular Hemoglobin 32.4 Mean Corpuscular Hemoglobin Concent 32.5 Red Cell Distribution Width 19.2 H Platelet Count 147 Mean Platelet Volume 11.2 H Immature Granulocytes % 0.500 H Neutrophils % 54.6 Lymphocytes % 36.1 Monocytes % 8.2 Eosinophils % 0.3 Basophils % 0.3 Nucleated Red Blood Cells % 0.8 H Immature Granulocytes # 0.040 H Neutrophils # 4.1 Lymphocytes # 2.7 Monocytes # 0.6 Eosinophils # 0.0 Basophils # 0.0 Nucleated Red Blood Cells # 0.1 H Sodium Level 138 Potassium Level 3.9 Chloride Level 102 Carbon Dioxide Level 27 Anion Gap 9 Blood Urea Nitrogen 29 #H Creatinine 1.15 H Est Glomerular Filtrat Rate mL/min Glucose Level 136 Calcium Level 7.8 L Magnesium Level 1.8 Total Bilirubin 0.8 Direct Bilirubin 0.00 Indirect Bilirubin 0.8 Aspartate Amino Transf (AST/SGOT) 122 H Alanine Aminotransferase (ALT/SGPT) 153 H Alkaline Phosphatase 73 Total Protein 6.0 L Albumin 3.3 Globulin 2.70 Albumin/Globulin Ratio 1.22 Medications Medication Current Medications Potassium Chloride/Dextrose/ Sod Cl 1,000 ml @ 75 mls/hr [id number] IV Last administered on 11/08/18 14:09; Admin Dose 75 MLS/HR; Start 11/07/18 at 10:00 Ciprofloxacin/ Dextrose 200 ml @ 200 mls/hr Q24H IVPB Last administered on 11/08/18 02:51; Admin Dose 200 MLS/HR; Start 11/08/18 at 03:00; Status Hold Metronidazole 100 ml @ 100 mls/hr Q8 IVPB Last administered on 11/07/18 22:15; Admin Dose 100 MLS/HR; Start 11/07/18 at 14:00; Status Hold Acetaminophen (Tylenol Tab) 650 mg Q6H PRN PO MILD PAIN(1-3)OR ELEVATED TEMP; Start 11/07/18 at 10:00 Loperamide HCl (Imodium Cap) 2 mg QID PRN PO DIARRHEA; Start 11/07/18 at 10:30 Amiodarone HCl (Cordarone) 100 mg DAILY PO Last administered on 11/08/18 09:15; Admin Dose 100 MG; Start 11/08/18 at 09:00 Apixaban (Eliquis) 2.5 mg BID PO Last administered on 11/08/18 21:06; Admin Dose 2.5 MG; Start 11/07/18 at 12:00 Cholecalciferol (Vitamin D) 2,000 unit DAILY PO Last administered on 11/08/18 09:16; Admin Dose 2,000 UNIT; Start 11/08/18 at 09:00 Donepezil HCl (Aricept) 10 mg DAILY PO Last administered on 11/08/18 09:16; Admin Dose 10 MG; Start 11/08/18 at 09:00 Escitalopram Oxalate (Lexapro) 20 mg DAILY PO Last administered on 11/08/18 09:17; Admin Dose 20 MG; Start 11/08/18 at 09:00 EZETIMIBE (Zetia) 10 mg DAILY PO Last administered on 11/08/18 09:15; Admin Dose 10 MG; Start 11/08/18 at 09:00 Ferrous Sulfate (Ferrous Sulfate (Ec)) 325 mg TID PO Last administered on 11/08/18 21:04; Admin Dose 325 MG; Start 11/07/18 at 13:00 Folic Acid (Folic Acid) 1 mg DAILY PO Last administered on 11/08/18at 09:16; Admin Dose 1 MG; Start 11/08/18 at 09:00 Furosemide (Lasix) 20 mg DAILY PO Last administered on 11/08/18at 09:17; Admin Dose 20 MG; Start 11/07/18 at 22:00 Pantoprazole (Protonix Tab) 40 mg DAILY@06 PO Last administered on 11/08/18at 06:14; Admin Dose 40 MG; Start 11/08/18 at 06:00 Levothyroxine Sodium (Synthroid) 25 mcg DAILY@0600 PO Last administered on 11/08/18at 06:42; Admin Dose 25 MCG; Start 11/08/18 at 06:30 Metoprolol Tartrate (Lopressor) 100 mg BID PO ; Start 11/08/18 at 21:00 Ondansetron HCl (Zofran Inj) 4 mg Q6H PRN IV NAUSEA AND/OR VOMITING; Start 11/08/18 at 10:30 Losartan Potassium (Cozaar) 50 mg DAILY PO ; Start 11/09/18 at 09:00 OSCAR GAYTAN Nov 08, 2018 22:08
[2018-11-09] VITALS (9 sets, daily range): BP systolic 105–142; BP diastolic 53–74; PULSE 65–95; RESP 18–19
[2018-11-09] MEDS: LORAZEPAM 0.5 MG TAB PO PRN (01:13)
[2018-11-09] MEDS: D5W-0.45 NACL + KCL 20 MEQ 1,000 ML IV SCH ×2 (02:00→15:17)
--- NOTE | 2018-11-09 04:31 | PN ---
Date/Time of Note Date/Time of Note DATE: 11/09/18 TIME: 04:30 Assessment/Plan VTE Prophylaxis Risk score (from [facility])>0 risk: 5 SCD applied (from [facility]): No SCD contraindicated: other Pharmacological prophylaxis: other Pharm contraindication: other Lines/Catheters IV Catheter Type (from [facility]): Peripheral IV Urinary Cath still in place: No Assessment/Plan Assessment/Plan - Acute Renal Insufficiency - will get nephroloy consult- - Gentle hydration 2/2 to low LVEF-40 % -Atrial fibrillation with initially rapid ventricular rates, improved. -continue Eliquis and metoprolol. - Dr Mayers is following in cardiology consultation. -Preserved LVEF 40% -Nausea vomiting and diarrhea for 2 days. f/up on stool for C. difficile, ova and parasites. -Dr. Merchant is asked to see patient in gastroenterology consultation. -Colitis per CT scan. S/p Levaquin and Flagyl. -UTI per UA, follow-up on urine culture -CHF, continue Lasix -Hypertension, continue metoprolol Norvasc and Cozaar -PPM -Hypothyroidism -Rheumatoid arthritis - Obesity - weight management Further recommendations based on clinical course. Plan of care discussed with Dr. Rayo. Result Diagram: 11/08/18 0808 11/08/18 0808 Results 24hrs Laboratory Tests Test 11/08/18 08:08 White Blood Count 7.5 Red Blood Count 4.17 L Hemoglobin 13.5 Hematocrit 41.5 Mean Corpuscular Volume 99.5 Mean Corpuscular Hemoglobin 32.4 Mean Corpuscular Hemoglobin Concent 32.5 Red Cell Distribution Width 19.2 H Platelet Count 147 Mean Platelet Volume 11.2 H Immature Granulocytes % 0.500 H Neutrophils % 54.6 Lymphocytes % 36.1 Monocytes % 8.2 Eosinophils % 0.3 Basophils % 0.3 Nucleated Red Blood Cells % 0.8 H Immature Granulocytes # 0.040 H Neutrophils # 4.1 Lymphocytes # 2.7 Monocytes # 0.6 Eosinophils # 0.0 Basophils # 0.0 Nucleated Red Blood Cells # 0.1 H Sodium Level 138 Potassium Level 3.9 Chloride Level 102 Carbon Dioxide Level 27 Anion Gap 9 Blood Urea Nitrogen 29 #H Creatinine 1.15 H Est Glomerular Filtrat Rate mL/min Glucose Level 136 Calcium Level 7.8 L Magnesium Level 1.8 Total Bilirubin 0.8 Direct Bilirubin 0.00 Indirect Bilirubin 0.8 Aspartate Amino Transf (AST/SGOT) 122 H Alanine Aminotransferase (ALT/SGPT) 153 H Alkaline Phosphatase 73 Total Protein 6.0 L Albumin 3.3 Globulin 2.70 Albumin/Globulin Ratio 1.22 Subjective 24 Hr Interval Summary Free Text/Dictation - Cr - 1.43 - will get nephro consult; cont monitor BMP - no events reported last night dw staff Constitutional: other Eyes: no complaints ENT: no complaints Respiratory: no complaints Cardiovascular: no complaints Gastrointestinal: no complaints Genitourinary: no complaints Musculoskeletal: no complaints Skin: no complaints Psychological: nl mood/affect Exam/Review of Systems Exam Vitals Vital Signs Date Temp Pulse Resp B/P (MAP) Pulse Ox O2 O2 Flow FiO2 Time Delivery Rate 11/09/18 97.9 71 18 113/67 97 04:00 (82) 11/08/18 Room Air 22:00 Intake and Output 11/08/18 11/08/18 11/09/18 1515:00 23:00 07:00 IntakeIntake Total 615 ml 1025 ml OutputOutput Total 200 ml 200 ml BalanceBalance 415 ml 825 ml Constitutional: alert, well developed, obese Psych: nl mood/affect Head: normocephalic Eyes: nl lids, nl sclera ENMT: nl external ears & nose Neck: non-tender Cardiovascular: nl pulses, murmurs/extra sounds, other (s1s2) Gastrointestinal: soft, non-tender Musculoskeletal: nl extremities to inspection Extremities: normal pulses Neurological: nl speech Skin: nl turgor Results Results 24hrs Laboratory Tests Test 11/08/18 08:08 White Blood Count 7.5 Red Blood Count 4.17 L Hemoglobin 13.5 Hematocrit 41.5 Mean Corpuscular Volume 99.5 Mean Corpuscular Hemoglobin 32.4 Mean Corpuscular Hemoglobin Concent 32.5 Red Cell Distribution Width 19.2 H Platelet Count 147 Mean Platelet Volume 11.2 H Immature Granulocytes % 0.500 H Neutrophils % 54.6 Lymphocytes % 36.1 Monocytes % 8.2 Eosinophils % 0.3 Basophils % 0.3 Nucleated Red Blood Cells % 0.8 H Immature Granulocytes # 0.040 H Neutrophils # 4.1 Lymphocytes # 2.7 Monocytes # 0.6 Eosinophils # 0.0 Basophils # 0.0 Nucleated Red Blood Cells # 0.1 H Sodium Level 138 Potassium Level 3.9 Chloride Level 102 Carbon Dioxide Level 27 Anion Gap 9 Blood Urea Nitrogen 29 #H Creatinine 1.15 H Est Glomerular Filtrat Rate mL/min Glucose Level 136 Calcium Level 7.8 L Magnesium Level 1.8 Total Bilirubin 0.8 Direct Bilirubin 0.00 Indirect Bilirubin 0.8 Aspartate Amino Transf (AST/SGOT) 122 H Alanine Aminotransferase (ALT/SGPT) 153 H Alkaline Phosphatase 73 Total Protein 6.0 L Albumin 3.3 Globulin 2.70 Albumin/Globulin Ratio 1.22 Medications Medication Current Medications Potassium Chloride/Dextrose/ Sod Cl 1,000 ml @ 75 mls/hr [id number] IV Last administered on 11/09/18 02:00; Admin Dose 75 MLS/HR; Start 11/07/18 at 10:00 Ciprofloxacin/ Dextrose 200 ml @ 200 mls/hr Q24H IVPB Last administered on 11/08/18 02:51; Admin Dose 200 MLS/HR; Start 11/08/18 at 03:00; Status Hold Metronidazole 100 ml @ 100 mls/hr Q8 IVPB Last administered on 11/07/18 22:15; Admin Dose 100 MLS/HR; Start 11/07/18 at 14:00; Status Hold Acetaminophen (Tylenol Tab) 650 mg Q6H PRN PO MILD PAIN(1-3)OR ELEVATED TEMP; Start 11/07/18 at 10:00 Loperamide HCl (Imodium Cap) 2 mg QID PRN PO DIARRHEA Last administered on 11/09/18 02:45; Admin Dose 2 MG; Start 11/07/18 at 10:30 Amiodarone HCl (Cordarone) 100 mg DAILY PO Last administered on 11/08/18 09:15; Admin Dose 100 MG; Start 11/08/18 at 09:00 Apixaban (Eliquis) 2.5 mg BID PO Last administered on 11/08/18 21:06; Admin Dose 2.5 MG; Start 11/07/18 at 12:00 Cholecalciferol (Vitamin D) 2,000 unit DAILY PO Last administered on 11/08/18 09:16; Admin Dose 2,000 UNIT; Start 11/08/18 at 09:00 Donepezil HCl (Aricept) 10 mg DAILY PO Last administered on 11/08/18 09:16; Admin Dose 10 MG; Start 11/08/18 at 09:00 Escitalopram Oxalate (Lexapro) 20 mg DAILY PO Last administered on 11/08/18 09:17; Admin Dose 20 MG; Start 11/08/18 at 09:00 EZETIMIBE (Zetia) 10 mg DAILY PO Last administered on 11/08/18 09:15; Admin Dose 10 MG; Start 11/08/18 at 09:00 Ferrous Sulfate (Ferrous Sulfate (Ec)) 325 mg TID PO Last administered on 11/08/18 21:04; Admin Dose 325 MG; Start 11/07/18 at 13:00 Folic Acid (Folic Acid) 1 mg DAILY PO Last administered on 11/08/18 09:16; Admin Dose 1 MG; Start 11/08/18 at 09:00 Furosemide (Lasix) 20 mg DAILY PO Last administered on 11/08/18 09:17; Admin Dose 20 MG; Start 11/07/18 at 22:00 Pantoprazole (Protonix Tab) 40 mg DAILY@06 PO Last administered on 11/08/18 06:14; Admin Dose 40 MG; Start 11/08/18 at 06:00 Levothyroxine Sodium (Synthroid) 25 mcg DAILY@0600 PO Last administered on 11/08/18 06:42; Admin Dose 25 MCG; Start 11/08/18 at 06:30 Metoprolol Tartrate (Lopressor) 100 mg BID PO ; Start 11/08/18 at 21:00 Ondansetron HCl (Zofran Inj) 4 mg Q6H PRN IV NAUSEA AND/OR VOMITING; Start 11/08/18 at 10:30 Losartan Potassium (Cozaar) 50 mg DAILY PO ; Start 11/09/18 at 09:00 Lorazepam (Ativan) 0.5 mg Q6H PRN PO ANXIETY Last administered on 11/09/18 01:13; Admin Dose 0.5 MG; Start 11/09/18 at 00:00 HOMERO ISAACS Nov 09, 2018 04:31
[2018-11-09] MEDS: LEVOTHYROXINE 25 MCG TAB PO SCH ×2 (06:00→10:46)
[2018-11-09] MEDS: PANTOPRAZOLE (EC) 40 MG TAB PO SCH (06:53)
[2018-11-09] MEDS: ONDANSETRON 4 MG INJ IV PRN (10:38)
[2018-11-09] MEDS: ESCITALOPRAM 10 MG TAB PO SCH (10:46)
[2018-11-09] MEDS: EZETIMIBE 10 MG TAB PO SCH (10:46)
[2018-11-09] MEDS: METOPROLOL 100 MG TAB PO SCH ×2 (10:47→22:19)
[2018-11-09] MEDS: CHOLECALCIFEROL 2,000 UNIT CAP PO SCH (10:48)
[2018-11-09] MEDS: FOLIC ACID 1 MG TAB PO SCH (10:48)
[2018-11-09] MEDS: DONEPEZIL 10 MG TAB PO SCH (10:48)
[2018-11-09] MEDS: APIXABAN 5 MG TABLET PO SCH ×2 (10:48→22:18)
[2018-11-09] MEDS: LOSARTAN 50 MG TAB PO SCH (10:48)
[2018-11-09] MEDS: FERROUS SULFATE (EC) 325 MG TAB PO SCH ×3 (10:48→21:00)
[2018-11-09] MEDS: FUROSEMIDE 20 MG TAB PO SCH (10:49)
[2018-11-09] MEDS: AMIODARONE 200 MG TAB PO SCH (10:49)
--- NOTE | 2018-11-09 13:47 | CONS ---
Assessment/Plan Assessment/Plan Hospital Course (Demo Recall) Atrial fibrillation with initially rapid ventricular rates, improved Nausea, vomiting Mild acute decompensated congestive heart failure Possible colitis Hypertension Dyslipidemia History of pacemaker Heart rates have improved since adjustments to beta-carine was made. Creatinine has been labile, will continue anticoagulation at current dose for the time being Still complaining of nausea and vomiting, undergoing GI work-up and treatment Will check echocardiogram If renal function worsens, consider holding ARB and diuretic Consultation Date/Type/Reason Admit Date/Time Nov 07, 2018 at 12:41 Initial Consult Date Type of Consult Cardiology Date/Time of Note DATE: 11/09/18 TIME: 13:43 24 HR Interval Summary Free Text/Dictation No palpitations, shortness of breath. Complaining of nausea and abdominal pain Exam/Review of Systems Vital Signs Vitals Vital Signs Date Temp Pulse Resp B/P (MAP) Pulse Ox O2 O2 Flow FiO2 Time Delivery Rate 11/09/18 98.0 70 19 105/53 96 11:27 (70) 11/08/18 Room Air 22:00 Intake and Output 11/08/18 11/08/18 11/09/18 1515:00 23:00 07:00 IntakeIntake Total 615 ml 1025 ml 870 ml OutputOutput Total 200 ml 200 ml BalanceBalance 415 ml 825 ml 870 ml Exam Constitutional: alert, oriented (walking in the room) Head: normocephalic Respiratory: other (Coarse breath sounds bilaterally, no wheezing) Cardiovascular: regular rate and rhythm (S1-S2 heard) Gastrointestinal: soft, bowel sounds, other (Discomfort with palpation) Extremities: edema (Trace) Labs Result Diagram: 11/09/18 0534 11/09/18 0534 Results 24hrs Laboratory Tests Test 11/09/18 05:34 White Blood Count 7.0 Red Blood Count 3.78 L Hemoglobin 12.4 Hematocrit 37.3 Mean Corpuscular Volume 98.7 Mean Corpuscular Hemoglobin 32.8 Mean Corpuscular Hemoglobin Concent 33.2 Red Cell Distribution Width 19.3 H Platelet Count 128 L Mean Platelet Volume 11.2 H Immature Granulocytes % 0.400 Neutrophils % 59.3 Lymphocytes % 32.3 Monocytes % 7.9 Eosinophils % 0.0 Basophils % 0.1 Nucleated Red Blood Cells % 7.6 H Immature Granulocytes # 0.030 Neutrophils # 4.1 Lymphocytes # 2.3 Monocytes # 0.6 Eosinophils # 0.0 Basophils # 0.0 Nucleated Red Blood Cells # 0.5 H Sodium Level 134 L Potassium Level 4.0 Chloride Level 103 Carbon Dioxide Level 21 Anion Gap 10 Blood Urea Nitrogen 30 H Creatinine 1.43 H Est Glomerular Filtrat Rate mL/min Glucose Level 129 Calcium Level 7.7 L Thyroid Stimulating Hormone (TSH) 6.990 H Medications Medications Current Medications Potassium Chloride/Dextrose/ Sod Cl 1,000 ml @ 75 mls/hr [id number] IV Last administered on 11/09/18 02:00; Admin Dose 75 MLS/HR; Start 11/07/18 at 10:00 Ciprofloxacin/ Dextrose 200 ml @ 200 mls/hr Q24H IVPB Last administered on 11/08/18 02:51; Admin Dose 200 MLS/HR; Start 11/08/18 at 03:00; Status Hold Metronidazole 100 ml @ 100 mls/hr Q8 IVPB Last administered on 11/07/18 22:15; Admin Dose 100 MLS/HR; Start 11/07/18 at 14:00; Status Hold Acetaminophen (Tylenol Tab) 650 mg Q6H PRN PO MILD PAIN(1-3)OR ELEVATED TEMP; Start 11/07/18 at 10:00 Loperamide HCl (Imodium Cap) 2 mg QID PRN PO DIARRHEA Last administered on 11/09/18 02:45; Admin Dose 2 MG; Start 11/07/18 at 10:30 Amiodarone HCl (Cordarone) 100 mg DAILY PO Last administered on 11/09/18 10:49; Admin Dose 100 MG; Start 11/08/18 at 09:00 Apixaban (Eliquis) 2.5 mg BID PO Last administered on 11/09/18 10:48; Admin Dose 2.5 MG; Start 11/07/18 at 12:00 Cholecalciferol (Vitamin D) 2,000 unit DAILY PO Last administered on 11/09/18 10:48; Admin Dose 2,000 UNIT; Start 11/08/18 at 09:00 Donepezil HCl (Aricept) 10 mg DAILY PO Last administered on 11/09/18 10:48; Admin Dose 10 MG; Start 11/08/18 at 09:00 Escitalopram Oxalate (Lexapro) 20 mg DAILY PO Last administered on 11/09/18 10:46; Admin Dose 20 MG; Start 11/08/18 at 09:00 EZETIMIBE (Zetia) 10 mg DAILY PO Last administered on 11/09/18 10:46; Admin Dose 10 MG; Start 11/08/18 at 09:00 Ferrous Sulfate (Ferrous Sulfate (Ec)) 325 mg TID PO Last administered on 11/09/18 10:48; Admin Dose 325 MG; Start 11/07/18 at 13:00 Folic Acid (Folic Acid) 1 mg DAILY PO Last administered on 11/09/18 10:48; Admin Dose 1 MG; Start 11/08/18 at 09:00 Furosemide (Lasix) 20 mg DAILY PO Last administered on 11/09/18 10:49; Admin Dose 20 MG; Start 11/07/18 at 22:00 Pantoprazole (Protonix Tab) 40 mg DAILY@06 PO Last administered on 11/09/18 06:53; Admin Dose 40 MG; Start 11/08/18 at 06:00 Levothyroxine Sodium (Synthroid) 25 mcg DAILY@0600 PO Last administered on 11/09/18 10:46; Admin Dose 25 MCG; Start 11/08/18 at 06:30 Metoprolol Tartrate (Lopressor) 100 mg BID PO Last administered on 11/09/18 10:47; Admin Dose 100 MG; Start 11/08/18 at 21:00 Ondansetron HCl (Zofran Inj) 4 mg Q6H PRN IV NAUSEA AND/OR VOMITING Last administered on 11/09/18 10:38; Admin Dose 4 MG; Start 11/08/18 at 10:30 Losartan Potassium (Cozaar) 50 mg DAILY PO Last administered on 11/09/18 10:48; Admin Dose 50 MG; Start 11/09/18 at 09:00 Lorazepam (Ativan) 0.5 mg Q6H PRN PO ANXIETY Last administered on 11/09/18 01:13; Admin Dose 0.5 MG; Start 11/09/18 at 00:00 Perico Mayers DO Nov 09, 2018 13:47
--- NOTE | 2018-11-09 17:31 | CONS ---
Assessment/Plan Assessment/Plan Assessment/Plan (Daily) Assessment/Plan Assessment/Plan (Daily) IMPRESSION: 1. Nausea, vomiting and diarrhea which have subsided now, most probably related to viral infection or of infectious etiology. 2. Atrial fibrillation for which she is on Eliquis. 3. Status post pacemaker insertion. 4. Dyslipidemia. 5. Hypothyroidism. 6. Hypertension. 7. Fatigue most probably related to depression Plan Metamucil for constipation and incomplete evacuation Lexapro exercise upon discharge Consultation Date/Type/Reason Admit Date/Time Nov 07, 2018 at 12:41 Initial Consult Date Date/Time of Note DATE: 11/09/18 TIME: 17:29 24 HR Interval Summary Free Text/Dictation Her only complaint is fatigue for last 5 to 6 months Constitutional: improved Exam/Review of Systems Exam Vitals Vital Signs Date Temp Pulse Resp B/P (MAP) Pulse Ox O2 O2 Flow FiO2 Time Delivery Rate 11/09/18 97.5 95 19 123/65 97 15:35 (84) 11/08/18 Room Air 22:00 Intake and Output 11/08/18 11/08/18 11/09/18 1515:00 23:00 07:00 IntakeIntake Total 615 ml 1025 ml 870 ml OutputOutput Total 200 ml 200 ml BalanceBalance 415 ml 825 ml 870 ml Constitutional: alert, oriented, well developed Psych: no complaints, nl mood/affect Head: normocephalic, atraumatic Eyes: nl conjunctiva, EOMI, nl lids, nl sclera, PERRL ENMT: nl external ears & nose, nl lips & teeth, nl nasal mucosa & septum Neck: supple, non-tender Respiratory: clear to auscultation, normal air movement Cardiovascular: regular rate and rhythm, nl pulses Gastrointestinal: soft, nl liver, spleen, non-tender Musculoskeletal: nl extremities to inspection, nl gait and stance Extremities: normal pulses Neurological: FINE ARTS CHAIR II-XII intact, nl mental status, nl speech, nl strength Skin: nl turgor; No rash or lesions Lymph: nl lymph nodes Results Result Diagram: 11/09/18 0534 11/09/18 0534 Results 24hrs Laboratory Tests Test 11/09/18 05:34 White Blood Count 7.0 Red Blood Count 3.78 L Hemoglobin 12.4 Hematocrit 37.3 Mean Corpuscular Volume 98.7 Mean Corpuscular Hemoglobin 32.8 Mean Corpuscular Hemoglobin Concent 33.2 Red Cell Distribution Width 19.3 H Platelet Count 128 L Mean Platelet Volume 11.2 H Immature Granulocytes % 0.400 Neutrophils % 59.3 Lymphocytes % 32.3 Monocytes % 7.9 Eosinophils % 0.0 Basophils % 0.1 Nucleated Red Blood Cells % 7.6 H Immature Granulocytes # 0.030 Neutrophils # 4.1 Lymphocytes # 2.3 Monocytes # 0.6 Eosinophils # 0.0 Basophils # 0.0 Nucleated Red Blood Cells # 0.5 H Sodium Level 134 L Potassium Level 4.0 Chloride Level 103 Carbon Dioxide Level 21 Anion Gap 10 Blood Urea Nitrogen 30 H Creatinine 1.43 H Est Glomerular Filtrat Rate mL/min Glucose Level 129 Calcium Level 7.7 L Thyroid Stimulating Hormone (TSH) 6.990 H Medications Medication Current Medications Potassium Chloride/Dextrose/ Sod Cl 1,000 ml @ 75 mls/hr [id number] IV Last administered on 11/09/18 15:17; Admin Dose 75 MLS/HR; Start 11/07/18 at 10:00 Ciprofloxacin/ Dextrose 200 ml @ 200 mls/hr Q24H IVPB Last administered on 11/08/18 02:51; Admin Dose 200 MLS/HR; Start 11/08/18 at 03:00; Status Hold Metronidazole 100 ml @ 100 mls/hr Q8 IVPB Last administered on 11/07/18 22:15; Admin Dose 100 MLS/HR; Start 11/07/18 at 14:00; Status Hold Acetaminophen (Tylenol Tab) 650 mg Q6H PRN PO MILD PAIN(1-3)OR ELEVATED TEMP; Start 11/07/18 at 10:00 Loperamide HCl (Imodium Cap) 2 mg QID PRN PO DIARRHEA Last administered on 11/09/18 02:45; Admin Dose 2 MG; Start 11/07/18 at 10:30 Amiodarone HCl (Cordarone) 100 mg DAILY PO Last administered on 11/09/18 10:49; Admin Dose 100 MG; Start 11/08/18 at 09:00 Apixaban (Eliquis) 2.5 mg BID PO Last administered on 11/09/18 10:48; Admin Dose 2.5 MG; Start 11/07/18 at 12:00 Cholecalciferol (Vitamin D) 2,000 unit DAILY PO Last administered on 11/09/18 10:48; Admin Dose 2,000 UNIT; Start 11/08/18 at 09:00 Donepezil HCl (Aricept) 10 mg DAILY PO Last administered on 11/09/18 10:48; Admin Dose 10 MG; Start 11/08/18 at 09:00 Escitalopram Oxalate (Lexapro) 20 mg DAILY PO Last administered on 11/09/18 10:46; Admin Dose 20 MG; Start 11/08/18 at 09:00 EZETIMIBE (Zetia) 10 mg DAILY PO Last administered on 11/09/18 10:46; Admin Dose 10 MG; Start 11/08/18 at 09:00 Ferrous Sulfate (Ferrous Sulfate (Ec)) 325 mg TID PO Last administered on 11/09/18 15:18; Admin Dose 325 MG; Start 11/07/18 at 13:00 Folic Acid (Folic Acid) 1 mg DAILY PO Last administered on 11/09/18 10:48; Admin Dose 1 MG; Start 11/08/18 at 09:00 Furosemide (Lasix) 20 mg DAILY PO Last administered on 11/09/18 10:49; Admin Dose 20 MG; Start 11/07/18 at 22:00 Pantoprazole (Protonix Tab) 40 mg DAILY@06 PO Last administered on 11/09/18 06:53; Admin Dose 40 MG; Start 11/08/18 at 06:00 Levothyroxine Sodium (Synthroid) 25 mcg DAILY@0600 PO Last administered on 11/09/18 10:46; Admin Dose 25 MCG; Start 11/08/18 at 06:30 Metoprolol Tartrate (Lopressor) 100 mg BID PO Last administered on 11/09/18 10:47; Admin Dose 100 MG; Start 11/08/18 at 21:00 Ondansetron HCl (Zofran Inj) 4 mg Q6H PRN IV NAUSEA AND/OR VOMITING Last administered on 11/09/18 10:38; Admin Dose 4 MG; Start 11/08/18 at 10:30 Losartan Potassium (Cozaar) 50 mg DAILY PO Last administered on 11/09/18 10:48; Admin Dose 50 MG; Start 11/09/18 at 09:00 Lorazepam (Ativan) 0.5 mg Q6H PRN PO ANXIETY Last administered on 11/09/18at 01:13; Admin Dose 0.5 MG; Start 11/09/18 at 00:00 TONY SHETTY MD Nov 09, 2018 17:31
--- NOTE | 2018-11-09 18:05 | RADRPT ---
Echocardiogram Report Patient Name: TERRI CHANGPatient ID: [id number] : 1935 (83y 4m)Study Date: 11/09/2018 2:19:54 PM Gender: FAccession #: [id number] Tech: LE Location: [facility] Ref.Physician: PERICO MAYERS Height(Cm): BSA: Weight(Kg): Quality: GoodOrder Physician: PERICO MAYERS Account #: Procedures: Echocardiographic Report: Transthoracic echocardiogram with complete 2D, M-Mode, and doppler examination. Indications: Atrial Fibrillation, and Congestive Heart Failure. Measurements: 2D/M Mode Doppler Measurement Value Normal Range Measurement Value Normal Range LVIDd 2D 4.5 [ 3.8 - 5.2 ] cm AV Mean Hardik 0.7 [ 70.0 - 90.0 ] cm/sec LVIDs 2D 3.8 [ 2.2 - 3.5 ] cm AV Mean PG 2.0 [ 2.0 - 4.0 ] mmHg LVPWd 2D 1.2 [ 0.6 - 0.9 ] cm AV Peak Hardik 0.9 [ 100.0 - 170.0 ] cm/sec IVSd 2D 1.2 [ 0.6 - 0.9 ] cm AV Peak PG 3.0 [ 2.0 - 9.0 ] mmHg EF 2D 35.4 [ 54.0 - 74.0 ] percent AV VTI 19.4 cm LVOT Diam 1.9 [ 2.1 - 2.5 ] cm AI Peak PG 72.0 mmHg AI Peak Hardik 4.2 cm/sec AI PHT 363.0 msec LVOT Peak Hardik 0.7 [ 70.0 - 110.0 ] cm/sec LVOT Peak PG 2.0 [ 2.0 - 6.0 ] mmHg MV E Peak Hardik 0.8 [ 60.0 - 130.0 ] cm/sec MV A Peak Hardik 0.3 [ 100.0 - 120.0 ] cm/sec MV E/A 2.9 [ 0.8 - 1.5 ] ratio MV Decel Time 173 [ 104 - 258 ] msec Lat E` Hardik 0.1 [ 10.0 - 15.0 ] cm/sec Lateral E/E` 13.3 [ 1.0 - 2.0 ] ratio Med E` Hardik 0.1 cm/sec MV E/A 2.9 [ 0.8 - 1.5 ] ratio TR Peak Hardik 2.3 [ 100.0 - 280.0 ] cm/sec TR Peak PG 22.0 mmHg PV Peak Hardik 0.3 [ 40.0 - 80.0 ] cm/sec Findings: Left Ventricle: Normal left ventricular cavity size. Mild concentric left ventricular hypertrophy. Moderate left ventricular systolic dysfunction. Ejection fraction is visually estimated at 40 %. Tissue Doppler/Mitral Doppler indices are consistent with pseudonormalization with mildly elevated left atrial pressure (Stage II diastolic dysfunction). Right Ventricle: Normal right ventricular size. Mild right ventricular systolic dysfunction. Left Atrium: There is moderate enlargement of left atrium. Right Atrium: There is moderate-severe enlargement of right atrium. Mitral Valve: Normal appearance of the mitral valve. Mild mitral leaflet calcification. Moderate to severe mitral valve regurgitation. Aortic Valve: Normal appearance of the aortic valve. No hemodynamically significant aortic stenosis by doppler. Mild to moderate aortic valve regurgitation. Tricuspid Valve: Normal appearance of the tricuspid valve. There is moderate to severe tricuspid regurgitation. Pulmonic Valve: Pulmonic valve not well visualized. Pericardium: Normal pericardium with no significant pericardial effusion. Aorta: Normal aortic root. IVC: Dilated IVC without respiratory collapse consistent with elevated right atrial pressure. Conclusions: Normal left ventricular cavity size. Mild concentric left ventricular hypertrophy. Moderate left ventricular systolic dysfunction. Ejection fraction is visually estimated at 40 %. Tissue Doppler/Mitral Doppler indices are consistent with pseudonormalization with mildly elevated left atrial pressure (Stage II diastolic dysfunction). Normal right ventricular size. Mild right ventricular systolic dysfunction. There is moderate enlargement of left atrium. There is moderate-severe enlargement of right atrium. Moderate to severe mitral valve regurgitation. No hemodynamically significant aortic stenosis by doppler. Mild to moderate aortic valve regurgitation. There is moderate to severe tricuspid regurgitation. Normal pericardium with no significant pericardial effusion. Electronically Signed By: Perico Mayers 2018-11-09 18:04:42 PDT
[2018-11-09] MEDS: DEXTROSE 5%-0.45% NACL 1,000 ML IV SCH (22:26)
--- NOTE | 2018-11-09 22:34 | CONS ---
Assessment/Plan Assessment/Plan Assessment/Plan (Daily) 1. acute kidney injury on CKD III due to hemodynamics from CHF 2. acute Hyponatremia due to CHF 3. acute decompensated CHF, acute on chronic 4. Atriall fibrillation, initially RVR on admission, now rate controlled 5. Possible colitis 6. h/o HTN 7. H/o Dyslipidemia Plan: IV abx ciprofloxacin and IV flagyl for colitis , PO lasix 20mg po daily amiodarone 100mg po daily, Eliqus 2.5 mg pO BID, Thanks for consultaiton, I will follow up Consultation Date/Type/Reason Admit Date/Time Nov 07, 2018 at 12:41 Date of Consultation: Nov 09, 2018 Type of Consult NEPHROLOGY Reason for Consultation Acute kidney injury, Hyponatremia Requesting Provider: REJI KAUFFMAN MD Date/Time of Note DATE: 11/09/18 TIME: 22:34 Hx of Present Illness 83-year-old female with past mental history of atrial fibrillation on anticoagulation, congestive heart failure, pacemaker who presents emergency room secondary to increased lower extremity edema as well as rapid heart rates. When asked patient's daughter why she brought the patient to hospital, she tells me her heart rate was in the 120s to 150s at home. she gets admitted for decompensatd CHF, noted to have Na 134, BUN/Cr 30/1.43- Renal has been consulted for hyponatremia, acute renal failure, Subjective hx not possible: pt non-verbal Past Medical History Medical History: congestive heart failure, high cholesterol, hypertension, hypothyroid, other (PPM, atrial fibrillation) Home Meds Reported Medications Icosapent Ethyl (VASCEPA) 1 Gm Capsule, 1 GM PO QID, CAP 11/07/18 Linaclotide (LINZESS) 145 Mcg Capsule, 145 MCG PO DAILY, #30 CAP 11/07/18 Furosemide* (Furosemide*) 20 Mg Tablet, 20 MG PO DAILY, #60 TAB 11/07/18 Ferrous Sulfate* (Ferrous Sulfate*) 325 Mg Tabec, 325 MG PO TID, TAB 11/07/18 Diclofenac Sodium* (Diclofenac Sodium*) 75 Mg Tablet.dr, 75 MG PO BID, #60 TAB 11/07/18 Cholecalciferol (Vitamin D3) (VITAMIN D-3) 2,000 Unit Capsule, 2000 UNIT PO, CAP 11/07/18 Esomeprazole Magnesium (Esomeprazole Magnesium) 20 Mg Capsule.dr, 20 MG PO BEFORE BREAKFAST, #30 CAP 11/07/18 Escitalopram Oxalate* (Escitalopram Oxalate*) 20 Mg Tablet, 20 MG PO DAILY, #30 TAB 11/07/18 Losartan Potassium* (Losartan Potassium*) 100 Mg Tablet, 100 MG PO DAILY, TAB 11/07/18 Calcium Carbonate* (Calcium Carbonate*) 600 MG Ca Tab, 600 MG PO, TAB 11/07/18 Folic Acid* (Folic Acid*) 1 Mg Tablet, 1 MG PO DAILY, TAB 11/07/18 Apixaban* (Eliquis*) 2.5 Mg Tablet, 2.5 MG PO BID, TAB 11/07/18 Metoprolol Tartrate* (Lopressor*) 100 Mg Tablet, 200 MG PO BID, #120 TAB 11/07/18 Ezetimibe* (Zetia*) 10 Mg Tablet, 10 MG PO DAILY, TAB 11/07/18 Donepezil* (Donepezil*) 10 Mg Tablet, 10 MG PO DAILY, #30 TAB 11/07/18 Amiodarone Hcl* (Amiodarone Hcl*) 200 Mg Tablet, 100 MG PO BID for [id number], #60 TAB 11/07/18 Amlodipine Besylate* (Norvasc*) 5 Mg Tablet, 5 MG PO DAILY, TAB 11/07/18 Levocetirizine Dihydrochloride (LEVOCETIRIZINE DIHYDROCHLORIDE) 1 Gm Powder, 1 GM MC 05/03/16 Infliximab (Remicade) 100 Mg Soln, 100 MG IV 6 WEEKS 12/14/11 Levothyroxine Sodium (Levothroid) 25 Mcg Tablet, 25 MCG PO DAILY 12/14/11 Simvastatin (Simvastatin) 20 Mg Tablet, 20 MG PO DAILY 12/14/11 Lorazepam* (Ativan*) 0.5 Mg Tablet, 0.5 MG PO DAILY 12/14/11 Omeprazole* (Omeprazole*) 20 Mg Capsule.dr, 20 MG PO AC MEALS AND BEDTIME 12/14/11 Methotrexate Sodium (Methotrexate) 2.5 Mg/Dose-Pack Tab.ds.pk, 2.5 MG PO DAILY 12/14/11 Aspirin Ec (Aspir 81) 81 Mg Tablet.dr, 81 MG PO DAILY 12/14/11 Discontinued Reported Medications [Hydralazine] No Conflict Check 05/03/16 [Metoprolol] No Conflict Check 05/03/16 [Escitalopram Oxalate] No Conflict Check 05/03/16 [Vascepa] No Conflict Check 05/03/16 [Vitamin D] No Conflict Check 05/03/16 [Folic Acid] No Conflict Check 05/03/16 Paroxetine Hcl* (Paroxetine*) 20 Mg Tablet, 20 MG PO DAILY 12/14/11 Losartan/Hydrochlorothiazide (Hyzaar 100-25 Tablet) 1 Tab Tablet, 1 TAB PO DAILY 12/14/11 Medications Current Medications Ciprofloxacin/ Dextrose 200 ml @ 200 mls/hr Q24H IVPB Last administered on 11/08/18 02:51; Admin Dose 200 MLS/HR; Start 11/08/18 at 03:00; Status Hold Metronidazole 100 ml @ 100 mls/hr Q8 IVPB Last administered on 11/07/18 22:15; Admin Dose 100 MLS/HR; Start 11/07/18 at 14:00; Status Hold Acetaminophen (Tylenol Tab) 650 mg Q6H PRN PO MILD PAIN(1-3)OR ELEVATED TEMP; Start 11/07/18 at 10:00 Loperamide HCl (Imodium Cap) 2 mg QID PRN PO DIARRHEA Last administered on 11/09/18 02:45; Admin Dose 2 MG; Start 11/07/18 at 10:30 Amiodarone HCl (Cordarone) 100 mg DAILY PO Last administered on 11/09/18 10:49; Admin Dose 100 MG; Start 11/08/18 at 09:00 Apixaban (Eliquis) 2.5 mg BID PO Last administered on 11/09/18 22:18; Admin Dose 2.5 MG; Start 11/07/18 at 12:00 Cholecalciferol (Vitamin D) 2,000 unit DAILY PO Last administered on 11/09/18 10:48; Admin Dose 2,000 UNIT; Start 11/08/18 at 09:00 Donepezil HCl (Aricept) 10 mg DAILY PO Last administered on 11/09/18 10:48; Admin Dose 10 MG; Start 11/08/18 at 09:00 Escitalopram Oxalate (Lexapro) 20 mg DAILY PO Last administered on 11/09/18 10:46; Admin Dose 20 MG; Start 11/08/18 at 09:00 EZETIMIBE (Zetia) 10 mg DAILY PO Last administered on 11/09/18 10:46; Admin Dose 10 MG; Start 11/08/18 at 09:00 Ferrous Sulfate (Ferrous Sulfate (Ec)) 325 mg TID PO Last administered on 11/09/18 15:18; Admin Dose 325 MG; Start 11/07/18 at 13:00 Folic Acid (Folic Acid) 1 mg DAILY PO Last administered on 11/09/18 10:48; Admin Dose 1 MG; Start 11/08/18 at 09:00 Furosemide (Lasix) 20 mg DAILY PO Last administered on 11/09/18 10:49; Admin Dose 20 MG; Start 11/07/18 at 22:00 Pantoprazole (Protonix Tab) 40 mg DAILY@06 PO Last administered on 11/09/18 06:53; Admin Dose 40 MG; Start 11/08/18 at 06:00 Levothyroxine Sodium (Synthroid) 25 mcg DAILY@0600 PO Last administered on 11/09/18 10:46; Admin Dose 25 MCG; Start 11/08/18 at 06:30 Metoprolol Tartrate (Lopressor) 100 mg BID PO Last administered on 11/09/18 22:19; Admin Dose 100 MG; Start 11/08/18 at 21:00 Ondansetron HCl (Zofran Inj) 4 mg Q6H PRN IV NAUSEA AND/OR VOMITING Last administered on 11/09/18 10:38; Admin Dose 4 MG; Start 11/08/18 at 10:30 Losartan Potassium (Cozaar) 50 mg DAILY PO Last administered on 11/09/18 10:48; Admin Dose 50 MG; Start 11/09/18 at 09:00 Lorazepam (Ativan) 0.5 mg Q6H PRN PO ANXIETY Last administered on 11/09/18 01:13; Admin Dose 0.5 MG; Start 11/09/18 at 00:00 Psyllium Hydrophilic Mucilloid (Metamucil) 1 pkt DAILY PO ; Start 11/10/18 at 0 9:00 Dextrose/Sodium Chloride 1,000 ml @ 40 mls/hr Q24H IV Last administered on 11/09/18 22:26; Admin Dose 40 MLS/HR; Start 11/09/18 at 22:00 Allergies: Coded Allergies: ciprofloxacin (Verified Allergy, Severe, 11/08/18) No Known Drug Allergies (Unverified Allergy, Unknown, 11/07/18) metronidazole (Verified Allergy, Unknown, 11/08/18) Past Surgical History Past Surgical Hx: other (Status post PPM placement 2014, status post low back surgery in 2009 status post bilateral cataract surgery) Social History Alcohol Use: none Smoking Status: Never smoker Drug Use: none Exam/Review of Systems Exam Vitals Vital Signs Date Temp Pulse Resp B/P (MAP) Pulse Ox O2 O2 Flow FiO2 Time Delivery Rate 11/09/18 86 16:00 11/09/18 97.5 19 123/65 97 15:35 (84) 11/08/18 Room Air 22:00 Intake and Output 11/08/18 11/08/18 11/09/18 1515:00 23:00 07:00 IntakeIntake Total 615 ml 1025 ml 870 ml OutputOutput Total 200 ml 200 ml BalanceBalance 415 ml 825 ml 870 ml Exam Constitutional: No distress Head: normocephalic, atraumatic Eyes: nl lids ENMT: nl external ears & nose Neck: No bruits Respiratory: clear to auscultation, normal air movement Cardiovascular: regular rate and rhythm, irregular rhythm Gastrointestinal: soft, non-tender, bowel sounds Extremities: edema (2+ edema to knees bilaterally, mild edema in both hands) Skin: nl turgor Results Result Diagram: 11/09/18 0534 11/09/18 0534 Results 24hrs Laboratory Tests Test 11/09/18 05:34 White Blood Count 7.0 Red Blood Count 3.78 L Hemoglobin 12.4 Hematocrit 37.3 Mean Corpuscular Volume 98.7 Mean Corpuscular Hemoglobin 32.8 Mean Corpuscular Hemoglobin Concent 33.2 Red Cell Distribution Width 19.3 H Platelet Count 128 L Mean Platelet Volume 11.2 H Immature Granulocytes % 0.400 Neutrophils % 59.3 Lymphocytes % 32.3 Monocytes % 7.9 Eosinophils % 0.0 Basophils % 0.1 Nucleated Red Blood Cells % 7.6 H Immature Granulocytes # 0.030 Neutrophils # 4.1 Lymphocytes # 2.3 Monocytes # 0.6 Eosinophils # 0.0 Basophils # 0.0 Nucleated Red Blood Cells # 0.5 H Sodium Level 134 L Potassium Level 4.0 Chloride Level 103 Carbon Dioxide Level 21 Anion Gap 10 Blood Urea Nitrogen 30 H Creatinine 1.43 H Est Glomerular Filtrat Rate mL/min Glucose Level 129 Calcium Level 7.7 L Thyroid Stimulating Hormone (TSH) 6.990 H Medications Medication Current Medications Ciprofloxacin/ Dextrose 200 ml @ 200 mls/hr Q24H IVPB Last administered on 02:51; Admin Dose 200 MLS/HR; Start 11/08/18 at 03:00; Status Hold Metronidazole 100 ml @ 100 mls/hr Q8 IVPB Last administered on 11/07/18 22:15; Admin Dose 100 MLS/HR; Start 11/07/18 at 14:00; Status Hold Acetaminophen (Tylenol Tab) 650 mg Q6H PRN PO MILD PAIN(1-3)OR ELEVATED TEMP; Start 11/07/18 at 10:00 Loperamide HCl (Imodium Cap) 2 mg QID PRN PO DIARRHEA Last administered on 11/09/18 02:45; Admin Dose 2 MG; Start 11/07/18 at 10:30 Amiodarone HCl (Cordarone) 100 mg DAILY PO Last administered on 11/09/18 10:49; Admin Dose 100 MG; Start 11/08/18 at 09:00 Apixaban (Eliquis) 2.5 mg BID PO Last administered on 11/09/18 22:18; Admin Dose 2.5 MG; Start 11/07/18 at 12:00 Cholecalciferol (Vitamin D) 2,000 unit DAILY PO Last administered on 11/09/18 10:48; Admin Dose 2,000 UNIT; Start 11/08/18 at 09:00 Donepezil HCl (Aricept) 10 mg DAILY PO Last administered on 11/09/18 10:48; Admin Dose 10 MG; Start 11/08/18 at 09:00 Escitalopram Oxalate (Lexapro) 20 mg DAILY PO Last administered on 11/09/18 10:46; Admin Dose 20 MG; Start 11/08/18 at 09:00 EZETIMIBE (Zetia) 10 mg DAILY PO Last administered on 11/09/18 10:46; Admin Dose 10 MG; Start 11/08/18 at 09:00 Ferrous Sulfate (Ferrous Sulfate (Ec)) 325 mg TID PO Last administered on 11/09/18 15:18; Admin Dose 325 MG; Start 11/07/18 at 13:00 Folic Acid (Folic Acid) 1 mg DAILY PO Last administered on 11/09/18 10:48; Admin Dose 1 MG; Start 11/08/18 at 09:00 Furosemide (Lasix) 20 mg DAILY PO Last administered on 11/09/18 10:49; Admin D ose 20 MG; Start 11/07/18 at 22:00 Pantoprazole (Protonix Tab) 40 mg DAILY@06 PO Last administered on 11/09/18 06:53; Admin Dose 40 MG; Start 11/08/18 at 06:00 Levothyroxine Sodium (Synthroid) 25 mcg DAILY@0600 PO Last administered on 11/09/18 10:46; Admin Dose 25 MCG; Start 11/08/18 at 06:30 Metoprolol Tartrate (Lopressor) 100 mg BID PO Last administered on 11/09/18 22:19; Admin Dose 100 MG; Start 11/08/18 at 21:00 Ondansetron HCl (Zofran Inj) 4 mg Q6H PRN IV NAUSEA AND/OR VOMITING Last administered on 11/09/18 10:38; Admin Dose 4 MG; Start 11/08/18 at 10:30 Losartan Potassium (Cozaar) 50 mg DAILY PO Last administered on 11/09/18 10:48; Admin Dose 50 MG; Start 11/09/18 at 09:00 Lorazepam (Ativan) 0.5 mg Q6H PRN PO ANXIETY Last administered on 11/09/18 01:13; Admin Dose 0.5 MG; Start 11/09/18 at 00:00 Psyllium Hydrophilic Mucilloid (Metamucil) 1 pkt DAILY PO ; Start 11/10/18 at 09:00 Dextrose/Sodium Chloride 1,000 ml @ 40 mls/hr Q24H IV Last administered on 11/09/18 22:26; Admin Dose 40 MLS/HR; Start 11/09/18 at 22:00 BEATRIZ PLEITEZ MD Nov 09, 2018 22:34
[2018-11-10] VITALS (9 sets, daily range): BP systolic 120–138; BP diastolic 60–72; PULSE 70–82; RESP 16–22
[2018-11-10] MEDS: LEVOTHYROXINE 25 MCG TAB PO SCH (06:51)
[2018-11-10] MEDS: PANTOPRAZOLE (EC) 40 MG TAB PO SCH (06:51)
--- NOTE | 2018-11-10 08:40 | CONS ---
Assessment/Plan Assessment/Plan Assessment/Plan (Daily) 1. acute kidney injury on CKD III due to hemodynamics from CHF 2. acute Hyponatremia due to CHF 3. acute decompensated CHF, acute on chronic 4. Atriall fibrillation, initially RVR on admission, now rate controlled 5. Possible colitis 6. h/o HTN 7. H/o Dyslipidemia Plan: IV abx ciprofloxacin and IV flagyl for colitis ,BUN/Cr 20/2.4, K 5.3, Na 133, - Continue D51/2NS at 50 ml/hr amiodarone 100mg po daily, Eliqus 2.5 mg pO BID, will follow up Consultation Date/Type/Reason Admit Date/Time Nov 07, 2018 at 12:41 Initial Consult Date 11/09/18 Type of Consult NEPHROLOGY Requesting Provider: REJI KAUFFMAN MD Date/Time of Note DATE: 11/10/18 TIME: 08:40 Exam/Review of Systems Exam Vitals Vital Signs Date Temp Pulse Resp B/P (MAP) Pulse Ox O2 O2 Flow FiO2 Time Delivery Rate 11/10/18 97.3 71 22 123/61 96 Room Air 07:25 (81) Intake and Output 11/09/18 11/09/18 11/10/18 1515:00 23:00 07:00 IntakeIntake Total 700 ml BalanceBalance 700 ml Results Result Diagram: 11/10/18 0555 11/09/18 0534 Results 24hrs Laboratory Tests Test 11/10/18 05:55 White Blood Count 6.2 Red Blood Count 3.58 L Hemoglobin 11.6 L Hematocrit 36.6 L Mean Corpuscular Volume 102.2 H Mean Corpuscular Hemoglobin 32.4 Mean Corpuscular Hemoglobin Concent 31.7 L Red Cell Distribution Width 20.5 H Platelet Count 109 L Mean Platelet Volume 11.6 H Immature Granulocytes % 0.500 H Neutrophils % 59.7 Lymphocytes % 30.5 Monocytes % 8.9 Eosinophils % 0.2 Basophils % 0.2 Nucleated Red Blood Cells % 9.4 H Immature Granulocytes # 0.030 Neutrophils # 3.7 Lymphocytes # 1.9 Monocytes # 0.6 Eosinophils # 0.0 Basophils # 0.0 Nucleated Red Blood Cells # 0.6 H Medications Medication Current Medications Ciprofloxacin/ Dextrose 200 ml @ 200 mls/hr Q24H IVPB Last administered on 6/6/19at 02:51; Admin Dose 200 MLS/HR; Start 11/08/18 at 03:00; Status Hold Metronidazole 100 ml @ 100 mls/hr Q8 IVPB Last administered on 11/07/18 22:15; Admin Dose 100 MLS/HR; Start 11/07/18 at 14:00; Status Hold Acetaminophen (Tylenol Tab) 650 mg Q6H PRN PO MILD PAIN(1-3)OR ELEVATED TEMP; Start 11/07/18 at 10:00 Loperamide HCl (Imodium Cap) 2 mg QID PRN PO DIARRHEA Last administered on 11/09/18 02:45; Admin Dose 2 MG; Start 11/07/18 at 10:30 Amiodarone HCl (Cordarone) 100 mg DAILY PO Last administered on 11/09/18 10:49; Admin Dose 100 MG; Start 11/08/18 at 09:00 Apixaban (Eliquis) 2.5 mg BID PO Last administered on 11/09/18 22:18; Admin Dose 2.5 MG; Start 11/07/18 at 12:00 Cholecalciferol (Vitamin D) 2,000 unit DAILY PO Last administered on 11/09/18 10:48; Admin Dose 2,000 UNIT; Start 11/08/18 at 09:00 Donepezil HCl (Aricept) 10 mg DAILY PO Last administered on 11/09/18 10:48; Admin Dose 10 MG; Start 11/08/18 at 09:00 Escitalopram Oxalate (Lexapro) 20 mg DAILY PO Last administered on 11/09/18 10:46; Admin Dose 20 MG; Start 11/08/18 at 09:00 EZETIMIBE (Zetia) 10 mg DAILY PO Last administered on 11/09/18 10:46; Admin Dose 10 MG; Start 11/08/18 at 09:00 Ferrous Sulfate (Ferrous Sulfate (Ec)) 325 mg TID PO Last administered on 11/09/18 15:18; Admin Dose 325 MG; Start 11/07/18 at 13:00 Folic Acid (Folic Acid) 1 mg DAILY PO Last administered on 11/09/18 10:48; Admin Dose 1 MG; Start 11/08/18 at 09:00 Furosemide (Lasix) 20 mg DAILY PO Last administered on 11/09/18 10:49; Admin Dose 20 MG; Start 11/07/18 at 22:00 Pantoprazole (Protonix Tab) 40 mg DAILY@06 PO Last administered on 11/10/18 06:51; Admin Dose 40 MG; Start 11/08/18 at 06:00 Levothyroxine Sodium (Synthroid) 25 mcg DAILY@0600 PO Last administered on 11/10/18 06:51; Admin Dose 25 MCG; Start 11/08/18 at 06:30 Metoprolol Tartrate (Lopressor) 100 mg BID PO Last administered on 11/09/18 22:19; Admin Dose 100 MG; Start 11/08/18 at 21:00 Ondansetron HCl (Zofran Inj) 4 mg Q6H PRN IV NAUSEA AND/OR VOMITING Last administered on 11/09/18 10:38; Admin Dose 4 MG; Start 11/08/18 at 10:30 Losartan Potassium (Cozaar) 50 mg DAILY PO Last administered on 11/09/18 10:48; Admin Dose 50 MG; Start 11/09/18 at 09:00 Lorazepam (Ativan) 0.5 mg Q6H PRN PO ANXIETY Last administered on 11/09/18 01:13; Admin Dose 0.5 MG; Start 11/09/18 at 00:00 Psyllium Hydrophilic Mucilloid (Metamucil) 1 pkt DAILY PO ; Start 11/10/18 at 09:00 Dextrose/Sodium Chloride 1,000 ml @ 40 mls/hr Q24H IV Last administered on 11/09/18 22:26; Admin Dose 40 MLS/HR; Start 11/09/18 at 22:00 BEATRIZ PLEITEZ MD Nov 10, 2018 08:40
[2018-11-10] MEDS: LOSARTAN 50 MG TAB PO SCH (08:51)
[2018-11-10] MEDS: AMIODARONE 200 MG TAB PO SCH (08:52)
[2018-11-10] MEDS: DONEPEZIL 10 MG TAB PO SCH (08:52)
[2018-11-10] MEDS: ESCITALOPRAM 10 MG TAB PO SCH (08:53)
[2018-11-10] MEDS: METOPROLOL 100 MG TAB PO SCH ×2 (08:53→21:49)
[2018-11-10] MEDS: FOLIC ACID 1 MG TAB PO SCH (08:54)
[2018-11-10] MEDS: CHOLECALCIFEROL 2,000 UNIT CAP PO SCH (08:54)
[2018-11-10] MEDS: FERROUS SULFATE (EC) 325 MG TAB PO SCH ×3 (08:54→21:00)
[2018-11-10] MEDS: APIXABAN 5 MG TABLET PO SCH ×2 (08:54→21:49)
[2018-11-10] MEDS: FUROSEMIDE 20 MG TAB PO SCH (08:55)
[2018-11-10] MEDS: PSYLLIUM 28% PACKET PO SCH (08:55)
[2018-11-10] MEDS: EZETIMIBE 10 MG TAB PO SCH (08:58)
--- NOTE | 2018-11-10 11:13 | PN ---
Date/Time of Note Date/Time of Note DATE: 11/10/18 TIME: 11:11 Assessment/Plan VTE Prophylaxis Risk score (from [facility] [place])>0 risk: 7 SCD applied (from [facility] [place]): No SCD contraindicated: other Pharmacological prophylaxis: other Lines/Catheters IV C[facility]ter Type (from [facility]): Peripheral IV Urinary Cath still in place: No Assessment/Plan Assessment/Plan -Hyperkalemia- - nephro follows - Acute Renal Insufficiency - per nephrology consult - Gentle hydration 2/2 to low LVEF-40 % -Atrial fibrillation with initially rapid ventricular rates, improved. -continue Eliquis and metoprolol. - Dr Mayers is following in cardiology consultation. -Preserved LVEF 40% -Nausea vomiting and diarrhea for 2 days. f/up on stool for C. difficile, ova and parasites. -Dr. Merchant is asked to see patient in gastroenterology consultation. -Colitis per CT scan. S/p Levaquin and Flagyl. -UTI per UA, follow-up on urine culture -CHF, continue Lasix -Hypertension, continue metoprolol Norvasc and Cozaar -PPM -Hypothyroidism -Rheumatoid arthritis - Obesity - weight management Further recommendations based on clinical course. Plan of care discussed with Dr. Rayo. Result Diagram: 11/10/18 0555 11/10/18 0804 Results 24hrs Laboratory Tests Test 11/10/18 05:55 11/10/18 08:04 White Blood Count 6.2 Red Blood Count 3.58 L Hemoglobin 11.6 L Hematocrit 36.6 L Mean Corpuscular Volume 102.2 H Mean Corpuscular Hemoglobin 32.4 Mean Corpuscular Hemoglobin Concent 31.7 L Red Cell Distribution Width 20.5 H Platelet Count 109 L Mean Platelet Volume 11.6 H Immature Granulocytes % 0.500 H Neutrophils % 59.7 Segmented Neutrophils % (Manual) 59 Band Neutrophils % (Manual) 1 Lymphocytes % 30.5 Lymphocytes % (Manual) 32 Reactive Lymphocytes % (Manual) 1 H Monocytes % 8.9 Monocytes % (Manual) 7 Eosinophils % 0.2 Basophils % 0.2 Nucleated Red Blood Cells % 21 H Immature Granulocytes # 0.030 Neutrophils # 3.7 Neutrophils # (Manual) 3.7 Band Neutrophils # 0.0 Lymphocytes (Manual) 1.9 Lymphocytes # 1.9 Reactive Lymphocytes # 0.0 Monocytes # 0.6 Monocytes # (Manual) 0.4 Eosinophils # 0.0 Basophils # 0.0 Nucleated Red Blood Cells # 0.6 H Platelet Estimate DECREASED Poikilocytosis 3+ Anisocytosis 2+ Macrocytosis 1+ Ovalocytes 1+ Sodium Level 133 L Potassium Level 5.3 H Chloride Level 101 Carbon Dioxide Level 21 Anion Gap 11 Blood Urea Nitrogen 40 H Creatinine 2.41 H Est Glomerular Filtrat Rate mL/min Glucose Level 121 Calcium Level 7.9 L Subjective 24 Hr Interval Summary Free Text/Dictation c/o generalized weakness vss daughter at bed side Cr elevated- nephro consult appreciated dw staff Constitutional: requiring IVF Eyes: no complaints ENT: no complaints Respiratory: no complaints Cardiovascular: no complaints Gastrointestinal: diarrhea Genitourinary: no complaints Musculoskeletal: no complaints Neurologic: no complaints Endocrine: no complaints Exam/Review of Systems Exam Vitals Vital Signs Date Temp Pulse Resp B/P (MAP) Pulse Ox O2 O2 Flow FiO2 Time Delivery Rate 11/10/18 77 08:00 11/10/18 97.3 22 123/61 96 Room Air 07:25 (81) Intake and Output 11/09/18 11/09/18 11/10/18 1515:00 23:00 07:00 IntakeIntake Total 700 ml BalanceBalance 700 ml Constitutional: alert, well developed Psych: nl mood/affect Eyes: nl lids, nl sclera ENMT: nl external ears & nose Neck: non-tender Respiratory: diminished breath sounds Cardiovascular: nl pulses, other (S1S2) Gastrointestinal: soft, non-tender Musculoskeletal: muscle weakness Extremities: normal pulses Neurological: nl speech, other (alert/repsonsive) Skin: nl turgor Lymph: nontender Results Results 24hrs Laboratory Tests Test 11/10/18 05:55 11/10/18 08:04 White Blood Count 6.2 Red Blood Count 3.58 L Hemoglobin 11.6 L Hematocrit 36.6 L Mean Corpuscular Volume 102.2 H Mean Corpuscular Hemoglobin 32.4 Mean Corpuscular Hemoglobin Concent 31.7 L Red Cell Distribution Width 20.5 H Platelet Count 109 L Mean Platelet Volume 11.6 H Immature Granulocytes % 0.500 H Neutrophils % 59.7 Segmented Neutrophils % (Manual) 59 Band Neutrophils % (Manual) 1 Lymphocytes % 30.5 Lymphocytes % (Manual) 32 Reactive Lymphocytes % (Manual) 1 H Monocytes % 8.9 Monocytes % (Manual) 7 Eosinophils % 0.2 Basophils % 0.2 Nucleated Red Blood Cells % 21 H Immature Granulocytes # 0.030 Neutrophils # 3.7 Neutrophils # (Manual) 3.7 Band Neutrophils # 0.0 Lymphocytes (Manual) 1.9 Lymphocytes # 1.9 Reactive Lymphocytes # 0.0 Monocytes # 0.6 Monocytes # (Manual) 0.4 Eosinophils # 0.0 Basophils # 0.0 Nucleated Red Blood Cells # 0.6 H Platelet Estimate DECREASED Poikilocytosis 3+ Anisocytosis 2+ Macrocytosis 1+ Ovalocytes 1+ Sodium Level 133 L Potassium Level 5.3 H Chloride Level 101 Carbon Dioxide Level 21 Anion Gap 11 Blood Urea Nitrogen 40 H Creatinine 2.41 H Est Glomerular Filtrat Rate mL/min Glucose Level 121 Calcium Level 7.9 L Medications Medication Current Medications Ciprofloxacin/ Dextrose 200 ml @ 200 mls/hr Q24H IVPB Last administered on 11/08/18 02:51; Admin Dose 200 MLS/HR; Start 11/08/18 at 03:00; Status Hold Metronidazole 100 ml @ 100 mls/hr Q8 IVPB Last administered on 11/07/18 22:15; Admin Dose 100 MLS/HR; Start 11/07/18 at 14:00; Status Hold Acetaminophen (Tylenol Tab) 650 mg Q6H PRN PO MILD PAIN(1-3)OR ELEVATED TEMP; Start 11/07/18 at 10:00 Loperamide HCl (Imodium Cap) 2 mg QID PRN PO DIARRHEA Last administered on 11/09/18 02:45; Admin Dose 2 MG; Start 11/07/18 at 10:30 Amiodarone HCl (Cordarone) 100 mg DAILY PO Last administered on 11/10/18 08:52; Admin Dose 100 MG; Start 11/08/18 at 09:00 Apixaban (Eliquis) 2.5 mg BID PO Last administered on 11/10/18 08:54; Admin Dos e 2.5 MG; Start 11/07/18 at 12:00 Cholecalciferol (Vitamin D) 2,000 unit DAILY PO Last administered on 11/10/18 08:54; Admin Dose 2,000 UNIT; Start 11/08/18 at 09:00 Donepezil HCl (Aricept) 10 mg DAILY PO Last administered on 11/10/18 08:52; Admin Dose 10 MG; Start 11/08/18 at 09:00 Escitalopram Oxalate (Lexapro) 20 mg DAILY PO Last administered on 11/10/18 08:53; Admin Dose 20 MG; Start 11/08/18 at 09:00 EZETIMIBE (Zetia) 10 mg DAILY PO Last administered on 11/10/18 08:58; Admin Dose 10 MG; Start 11/08/18 at 09:00 Ferrous Sulfate (Ferrous Sulfate (Ec)) 325 mg TID PO Last administered on 9at 08:54; Admin Dose 325 MG; Start 11/07/18 at 13:00 Folic Acid (Folic Acid) 1 mg DAILY PO Last administered on 11/10/18 08:54; Admin Dose 1 MG; Start 11/08/18 at 09:00 Furosemide (Lasix) 20 mg DAILY PO Last administered on 11/10/18 08:55; Admin Dose 20 MG; Start 11/07/18 at 22:00 Pantoprazole (Protonix Tab) 40 mg DAILY@06 PO Last administered on 11/10/18 06:51; Admin Dose 40 MG; Start 11/08/18 at 06:00 Levothyroxine Sodium (Synthroid) 25 mcg DAILY@0600 PO Last administered on 11/10/18 06:51; Admin Dose 25 MCG; Start 11/08/18 at 06:30 Metoprolol Tartrate (Lopressor) 100 mg BID PO Last administered on 11/10/18 08:53; Admin Dose 100 MG; Start 11/08/18 at 21:00 Ondansetron HCl (Zofran Inj) 4 mg Q6H PRN IV NAUSEA AND/OR VOMITING Last administered on 11/09/18 10:38; Admin Dose 4 MG; Start 11/08/18 at 10:30 Losartan Potassium (Cozaar) 50 mg DAILY PO Last administered on 11/10/18 08:51; Admin Dose 50 MG; Start 11/09/18 at 09:00 Lorazepam (Ativan) 0.5 mg Q6H PRN PO ANXIETY Last administered on 11/09/18 01:13; Admin Dose 0.5 MG; Start 11/09/18 at 00:00 Psyllium Hydrophilic Mucilloid (Metamucil) 1 pkt DAILY PO Last administered on 11/10/18at 08:55; Admin Dose 1 PKT; Start 11/10/18 at 09:00 Dextrose/Sodium Chloride 1,000 ml @ 40 mls/hr Q24H IV Last administered on 11/09/18at 22:26; Admin Dose 40 MLS/HR; Start 11/09/18 at 22:00 HOMERO ISAACS Nov 10, 2018 11:13
[2018-11-10] MEDS: ONDANSETRON 4 MG INJ IV PRN (12:33)
--- NOTE | 2018-11-10 14:13 | CONS ---
Assessment/Plan Assessment/Plan Assessment/Plan (Daily) Assessment/Plan Assessment/Plan Assessment/Plan (Daily) Assessment/Plan Assessment/Plan (Daily) IMPRESSION: 1. Nausea, vomiting and diarrhea which have subsided now, most probably related to viral infection or of infectious etiology. 2. Atrial fibrillation for which she is on Eliquis. 3. Status post pacemaker insertion. 4. Dyslipidemia. 5. Hypothyroidism. 6. Hypertension. 7. Fatigue most probably related to depression Plan Metamucil for constipation and incomplete evacuation Lexapro exercise upon discharge Bladder scan to make sure there is no bladder outlet obstruction. If there is no bladder outlet obstruction then patient may need more IV fluid since the creatinine is going up Consultation Date/Type/Reason Admit Date/Time Nov 07, 2018 at 12:41 Initial Consult Date Requesting Provider: REJI KAUFFMAN MD Date/Time of Note DATE: 11/10/18 TIME: 14:12 24 HR Interval Summary Free Text/Dictation Discussed with the family members patient's p.o. intake is very poor Urination she has had difficulty in urinating and it comes as a drop Exam/Review of Systems Exam Vitals Vital Signs Date Temp Pulse Resp B/P (MAP) Pulse Ox O2 O2 Flow FiO2 Time Delivery Rate 11/10/18 97.9 78 22 138/72 96 Room Air 12:16 (94) Intake and Output 11/09/18 11/09/18 11/10/18 1515:00 23:00 07:00 IntakeIntake Total 700 ml BalanceBalance 700 ml Constitutional: alert, oriented, well developed Psych: no complaints, nl mood/affect Head: normocephalic, atraumatic Eyes: nl conjunctiva, EOMI, nl lids, nl sclera, PERRL ENMT: nl external ears & nose, nl lips & teeth, nl nasal mucosa & septum Neck: supple, non-tender Respiratory: clear to auscultation, normal air movement Cardiovascular: regular rate and rhythm, nl pulses Gastrointestinal: soft, nl liver, spleen, non-tender Musculoskeletal: nl extremities to inspection, nl gait and stance Extremities: normal pulses Neurological: 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 intact, nl mental status, nl speech, nl strength Skin: nl turgor; No rash or lesions Lymph: nl lymph nodes Results Result Diagram: 11/10/18 0555 11/10/18 0804 Results 24hrs Laboratory Tests Test 11/10/18 05:55 11/10/18 08:04 White Blood Count 6.2 Red Blood Count 3.58 L Hemoglobin 11.6 L Hematocrit 36.6 L Mean Corpuscular Volume 102.2 H Mean Corpuscular Hemoglobin 32.4 Mean Corpuscular Hemoglobin Concent 31.7 L Red Cell Distribution Width 20.5 H Platelet Count 109 L Mean Platelet Volume 11.6 H Immature Granulocytes % 0.500 H Neutrophils % 59.7 Segmented Neutrophils % (Manual) 59 Band Neutrophils % (Manual) 1 Lymphocytes % 30.5 Lymphocytes % (Manual) 32 Reactive Lymphocytes % (Manual) 1 H Monocytes % 8.9 Monocytes % (Manual) 7 Eosinophils % 0.2 Basophils % 0.2 Nucleated Red Blood Cells % 21 H Immature Granulocytes # 0.030 Neutrophils # 3.7 Neutrophils # (Manual) 3.7 Band Neutrophils # 0.0 Lymphocytes (Manual) 1.9 Lymphocytes # 1.9 Reactive Lymphocytes # 0.0 Monocytes # 0.6 Monocytes # (Manual) 0.4 Eosinophils # 0.0 Basophils # 0.0 Nucleated Red Blood Cells # 0.6 H Platelet Estimate DECREASED Poikilocytosis 3+ Anisocytosis 2+ Macrocytosis 1+ Ovalocytes 1+ Sodium Level 133 L Potassium Level 5.3 H Chloride Level 101 Carbon Dioxide Level 21 Anion Gap 11 Blood Urea Nitrogen 40 H Creatinine 2.41 H Est Glomerular Filtrat Rate mL/min Glucose Level 121 Calcium Level 7.9 L Medications Medication Current Medications Ciprofloxacin/ Dextrose 200 ml @ 200 mls/hr Q24H IVPB Last administered on 11/08/18at 02:51; Admin Dose 200 MLS/HR; Start 11/08/18 at 03:00; Status Hold Metronidazole 100 ml @ 100 mls/hr Q8 IVPB Last administered on 11/07/18at 22:15; Admin Dose 100 MLS/HR; Start 11/07/18 at 14:00; Status Hold Acetaminophen (Tylenol Tab) 650 mg Q6H PRN PO MILD PAIN(1-3)OR ELEVATED TEMP; Start 11/07/18 at 10:00 Loperamide HCl (Imodium Cap) 2 mg QID PRN PO DIARRHEA Last administered on 11/09/18at 02:45; Admin Dose 2 MG; Start 11/07/18 at 10:30 Amiodarone HCl (Cordarone) 100 mg DAILY PO Last administered on 11/10/18 08:52; Admin Dose 100 MG; Start 11/08/18 at 09:00 Apixaban (Eliquis) 2.5 mg BID PO Last administered on 11/10/18 08:54; Admin Dose 2.5 MG; Start 11/07/18 at 12:00 Cholecalciferol (Vitamin D) 2,000 unit DAILY PO Last administered on 11/10/18 08:54; Admin Dose 2,000 UNIT; Start 11/08/18 at 09:00 Donepezil HCl (Aricept) 10 mg DAILY PO Last administered on 11/10/18 08:52; Admin Dose 10 MG; Start 11/08/18 at 09:00 Escitalopram Oxalate (Lexapro) 20 mg DAILY PO Last administered on 11/10/18 08:53; Admin Dose 20 MG; Start 11/08/18 at 09:00 EZETIMIBE (Zetia) 10 mg DAILY PO Last administered on 11/10/18 08:58; Admin Dose 10 MG; Start 11/08/18 at 09:00 Ferrous Sulfate (Ferrous Sulfate (Ec)) 325 mg TID PO Last administered on 11/10/18 12:33; Admin Dose 325 MG; Start 11/07/18 at 13:00 Folic Acid (Folic Acid) 1 mg DAILY PO Last administered on 11/10/18 08:54; Admin Dose 1 MG; Start 11/08/18 at 09:00 Furosemide (Lasix) 20 mg DAILY PO Last administered on 11/10/18 08:55; Admin Dose 20 MG; Start 11/07/18 at 22:00 Pantoprazole (Protonix Tab) 40 mg DAILY@06 PO Last administered on 11/10/18 06:51; Admin Dose 40 MG; Start 11/08/18 at 06:00 Levothyroxine Sodium (Synthroid) 25 mcg DAILY@0600 PO Last administered on 11/10/18 06:51; Admin Dose 25 MCG; Start 11/08/18 at 06:30 Metoprolol Tartrate (Lopressor) 100 mg BID PO Last administered on 11/10/18 08:53; Admin Dose 100 MG; Start 11/08/18 at 21:00 Ondansetron HCl (Zofran Inj) 4 mg Q6H PRN IV NAUSEA AND/OR VOMITING Last administered on 11/10/18 12:33; Admin Dose 4 MG; Start 11/08/18 at 10:30 Losartan Potassium (Cozaar) 50 mg DAILY PO Last administered on 11/10/18 08:51; Admin Dose 50 MG; Start 11/09/18 at 09:00 Lorazepam (Ativan) 0.5 mg Q6H PRN PO ANXIETY Last administered on 11/09/18 01:13; Admin Dose 0.5 MG; Start 11/09/18 at 00:00 Psyllium Hydrophilic Mucilloid (Metamucil) 1 pkt DAILY PO Last administered on 11/10/18 08:55; Admin Dose 1 PKT; Start 11/10/18 at 09:00 Dextrose/Sodium Chloride 1,000 ml @ 40 mls/hr Q24H IV Last administered on 11/09/18 22:26; Admin Dose 40 MLS/HR; Start 11/09/18 at 22:00 TONY SHETTY MD Nov 10, 2018 14:13
[2018-11-10] MEDS: LORAZEPAM 0.5 MG TAB PO PRN (21:48)
[2018-11-11] VITALS (12 sets, daily range): BP systolic 96–127; BP diastolic 52–80; PULSE 70–78; RESP 17–22
[2018-11-11] MEDS: DEXTROSE 5%-0.45% NACL 1,000 ML IV SCH ×2 (04:22→23:18)
[2018-11-11] MEDS: LEVOTHYROXINE 25 MCG TAB PO SCH (06:06)
[2018-11-11] MEDS: PANTOPRAZOLE (EC) 40 MG TAB PO SCH (06:06)
--- NOTE | 2018-11-11 07:17 | PN ---
Date/Time of Note Date/Time of Note DATE: 11/11/18 TIME: 07:16 Assessment/Plan VTE Prophylaxis Risk score (from [facility])>0 risk: 8 SCD applied (from [facility]): No SCD contraindicated: other Pharmacological prophylaxis: other Pharm contraindication: other Lines/Catheters IV [facility]from [facility] Saline Lock Urinary Cath still in place: No Reason Cath still needed: urinary retention Assessment/Plan Assessment/Plan -Hyperkalemia-resolved - nephro follows - Acute Renal Insufficiency - per nephrology consult - Gentle hydration 2/2 to low LVEF-40 % -Atrial fibrillation with initially rapid ventricular rates, improved. -continue Eliquis and metoprolol. - Dr Mayers is following in cardiology consultation. -Preserved LVEF 40% -Nausea vomiting and diarrhea for 2 days. f/up on stool for C. difficile, ova and parasites. -Dr. Merchant is asked to see patient in gastroenterology consultation. -Colitis per CT scan. S/p Levaquin and Flagyl. -UTI per UA, follow-up on urine culture -CHF, continue Lasix -Hypertension, continue metoprolol Norvasc and Cozaar -PPM -Hypothyroidism -Rheumatoid arthritis - Obesity - weight management Further recommendations based on clinical course. Plan of care discussed with Dr. Rayo. Result Diagram: 11/11/183 11/11/18 0443 Results 24hrs Laboratory Tests Test 11/10/18 08:04 11/11/18 04:43 Sodium Level 133 L 129 L Potassium Level 5.3 H 5.0 Chloride Level 101 97 Carbon Dioxide Level 21 23 Anion Gap 11 9 Blood Urea Nitrogen 40 H 43 H Creatinine 2.41 H 2.56 H Est Glomerular Filtrat Rate mL/min Glucose Level 121 106 Calcium Level 7.9 L 8.0 L White Blood Count 6.6 Red Blood Count 3.79 L Hemoglobin 12.4 Hematocrit 37.4 Mean Corpuscular Volume 98.7 Mean Corpuscular Hemoglobin 32.7 Mean Corpuscular Hemoglobin Concent 33.2 Red Cell Distribution Width 20.0 H Platelet Count 105 L Mean Platelet Volume 11.4 H Immature Granulocytes % 0.300 Neutrophils % 50.1 Lymphocytes % 40.5 Monocytes % 8.6 Eosinophils % 0.3 Basophils % 0.2 Nucleated Red Blood Cells % 4.6 H Immature Granulocytes # 0.020 Neutrophils # 3.3 Lymphocytes # 2.7 Monocytes # 0.6 Eosinophils # 0.0 Basophils # 0.0 Nucleated Red Blood Cells # 0.3 H Subjective 24 Hr Interval Summary Free Text/Dictation afebrile no events reported last night dw staff Constitutional: requiring O2 Exam/Review of Systems Exam Vitals Vital Signs Date Temp Pulse Resp B/P (MAP) Pulse Ox O2 O2 Flow FiO2 Time Delivery Rate 11/11/18 97.6 78 17 123/70 99 05:07 (87) 11/10/18 Room Air 12:16 Intake and Output 11/10/18 11/10/18 11/11/18 1515:00 23:00 07:00 IntakeIntake Total 860 ml 300 ml OutputOutput Total 200 ml BalanceBalance 860 ml 100 ml Constitutional: alert Psych: nl mood/affect Head: normocephalic Eyes: nl lids, nl sclera ENMT: nl external ears & nose Neck: non-tender Respiratory: clear to auscultation Cardiovascular: nl pulses, other (s1s2) Gastrointestinal: soft, non-tender, other (t intact) Musculoskeletal: muscle weakness Extremities: normal pulses Neurological: confused Skin: other Results Results 24hrs Laboratory Tests Test 11/10/18 08:04 11/11/18 04:43 Sodium Level 133 L 129 L Potassium Level 5.3 H 5.0 Chloride Level 101 97 Carbon Dioxide Level 21 23 Anion Gap 11 9 Blood Urea Nitrogen 40 H 43 H Creatinine 2.41 H 2.56 H Est Glomerular Filtrat Rate mL/min Glucose Level 121 106 Calcium Level 7.9 L 8.0 L White Blood Count 6.6 Red Blood Count 3.79 L Hemoglobin 12.4 Hematocrit 37.4 Mean Corpuscular Volume 98.7 Mean Corpuscular Hemoglobin 32.7 Mean Corpuscular Hemoglobin Concent 33.2 Red Cell Distribution Width 20.0 H Platelet Count 105 L Mean Platelet Volume 11.4 H Immature Granulocytes % 0.300 Neutrophils % 50.1 Lymphocytes % 40.5 Monocytes % 8.6 Eosinophils % 0.3 Basophils % 0.2 Nucleated Red Blood Cells % 4.6 H Immature Granulocytes # 0.020 Neutrophils # 3.3 Lymphocytes # 2.7 Monocytes # 0.6 Eosinophils # 0.0 Basophils # 0.0 Nucleated Red Blood Cells # 0.3 H Medications Medication Current Medications Ciprofloxacin/ Dextrose 200 ml @ 200 mls/hr Q24H IVPB Last administered on 11/08/18 02:51; Admin Dose 200 MLS/HR; Start 11/08/18 at 03:00; Status Hold Metronidazole 100 ml @ 100 mls/hr Q8 IVPB Last administered on 11/07/18 22:15; Admin Dose 100 MLS/HR; Start 11/07/18 at 14:00; Status Hold Acetaminophen (Tylenol Tab) 650 mg Q6H PRN PO MILD PAIN(1-3)OR ELEVATED TEMP; Start 11/07/18 at 10:00 Loperamide HCl (Imodium Cap) 2 mg QID PRN PO DIARRHEA Last administered on 11/09/18 02:45; Admin Dose 2 MG; Start 11/07/18 at 10:30 Amiodarone HCl (Cordarone) 100 mg DAILY PO Last administered on 11/10/18 08:52; Admin Dose 100 MG; Start 11/08/18 at 09:00 Apixaban (Eliquis) 2.5 mg BID PO Last administered on 11/10/18 21:49; Admin Dose 2.5 MG; Start 11/07/18 at 12:00 Cholecalciferol (Vitamin D) 2,000 unit DAILY PO Last administered on 11/10/18 08:54; Admin Dose 2,000 UNIT; Start 11/08/18 at 09:00 Donepezil HCl (Aricept) 10 mg DAILY PO Last administered on 11/10/18 08:52; Admin Dose 10 MG; Start 11/08/18 at 09:00 Escitalopram Oxalate (Lexapro) 20 mg DAILY PO Last administered on 11/10/18 08:53; Admin Dose 20 MG; Start 11/08/18 at 09:00 EZETIMIBE (Zetia) 10 mg DAILY PO Last administered on 11/10/18 08:58; Admin Dose 10 MG; Start 11/08/18 at 09:00 Ferrous Sulfate (Ferrous Sulfate (Ec)) 325 mg TID PO Last administered on 11/10/18 12:33; Admin Dose 325 MG; Start 11/07/18 at 13:00 Folic Acid (Folic Acid) 1 mg DAILY PO Last administered on 11/10/18 08:54; Admin Dose 1 MG; Start 11/08/18 at 09:00 Pantoprazole (Protonix Tab) 40 mg DAILY@06 PO Last administered on 11/11/18 06:06; Admin Dose 40 MG; Start 11/08/18 at 06:00 Levothyroxine Sodium (Synthroid) 25 mcg DAILY@0600 PO Last administered on 11/11/18 06:06; Admin Dose 25 MCG; Start 11/08/18 at 06:30 Metoprolol Tartrate (Lopressor) 100 mg BID PO Last administered on 11/10/18 21:49; Admin Dose 100 MG; Start 11/08/18 at 21:00 Ondansetron HCl (Zofran Inj) 4 mg Q6H PRN IV NAUSEA AND/OR VOMITING Last administered on 11/10/18 12:33; Admin Dose 4 MG; Start 11/08/18 at 10:30 Lorazepam (Ativan) 0.5 mg Q6H PRN PO ANXIETY Last administered on 11/10/18 21:48; Admin Dose 0.5 MG; Start 11/09/18 at 00:00 Psyllium Hydrophilic Mucilloid (Metamucil) 1 pkt DAILY PO Last administered on 11/10/18 08:55; Admin Dose 1 PKT; Start 11/10/18 at 09:00 Dextrose/Sodium Chloride 1,000 ml @ 40 mls/hr Q24H IV Last administered on 11/11/18 04:22; Admin Dose 40 MLS/HR; Start 11/09/18 at 22:00 HOMERO ISAACS Nov 11, 2018 07:17
--- NOTE | 2018-11-11 07:28 | CONS ---
Assessment/Plan Assessment/Plan Hospital Course (Demo Recall) Impression: Atrial fibrillation, chronic, rate controlled Mild acute decompensated congestive heart failure, diuresed Acute on chronic renal failure Possible colitis Hypertension Dyslipidemia History of pacemaker Recommendations: Stopping furosemide and losartan due to acute renal failure Can continue Eliquis 2.5 mg po bid Continue metoprolol for heart rate control Consultation Date/Type/Reason Admit Date/Time Nov 07, 2018 at 12:41 Initial Consult Date 11/09/18 Type of Consult Cardiology Requesting Provider: REJI KAUFFMAN MD Date/Time of Note DATE: 11/11/18 TIME: 07:24 24 HR Interval Summary Free Text/Dictation Patient sitting up in chair sleeping, daughter at bedside. Patient has poor appetite, and swelling in arms and legs. Exam/Review of Systems Vital Signs Vitals Vital Signs Date Temp Pulse Resp B/P (MAP) Pulse Ox O2 O2 Flow FiO2 Time Delivery Rate 11/11/18 97.6 78 17 123/70 99 05:07 (87) 11/10/18 Room Air 12:16 Intake and Output 11/10/18 11/10/18 11/11/18 1515:00 23:00 07:00 IntakeIntake Total 860 ml 300 ml OutputOutput Total 200 ml BalanceBalance 860 ml 100 ml Exam Constitutional: No distress Head: normocephalic, atraumatic Eyes: nl lids ENMT: nl external ears & nose Neck: No bruits Respiratory: clear to auscultation, normal air movement Cardiovascular: regular rate and rhythm, irregular rhythm Gastrointestinal: soft, non-tender, bowel sounds Extremities: edema (2+ edema to knees bilaterally, mild edema in both hands) Skin: nl turgor Labs Result Diagram: 11/11/18 0443 11/11/18 0443 Results 24hrs Laboratory Tests Test 11/10/18 08:04 11/11/18 04:43 Sodium Level 133 L 129 L Potassium Level 5.3 H 5.0 Chloride Level 101 97 Carbon Dioxide Level 21 23 Anion Gap 11 9 Blood Urea Nitrogen 40 H 43 H Creatinine 2.41 H 2.56 H Est Glomerular Filtrat Rate mL/min Glucose Level 121 106 Calcium Level 7.9 L 8.0 L White Blood Count 6.6 Red Blood Count 3.79 L Hemoglobin 12.4 Hematocrit 37.4 Mean Corpuscular Volume 98.7 Mean Corpuscular Hemoglobin 32.7 Mean Corpuscular Hemoglobin Concent 33.2 Red Cell Distribution Width 20.0 H Platelet Count 105 L Mean Platelet Volume 11.4 H Immature Granulocytes % 0.300 Neutrophils % 50.1 Lymphocytes % 40.5 Monocytes % 8.6 Eosinophils % 0.3 Basophils % 0.2 Nucleated Red Blood Cells % 4.6 H Immature Granulocytes # 0.020 Neutrophils # 3.3 Lymphocytes # 2.7 Monocytes # 0.6 Eosinophils # 0.0 Basophils # 0.0 Nucleated Red Blood Cells # 0.3 H Medications Medications Current Medications Ciprofloxacin/ Dextrose 200 ml @ 200 mls/hr Q24H IVPB Last administered on 11/08/18 02:51; Admin Dose 200 MLS/HR; Start 11/08/18 at 03:00; Status Hold Metronidazole 100 ml @ 100 mls/hr Q8 IVPB Last administered on 11/07/18 22:15; Admin Dose 100 MLS/HR; Start 11/07/18 at 14:00; Status Hold Acetaminophen (Tylenol Tab) 650 mg Q6H PRN PO MILD PAIN(1-3)OR ELEVATED TEMP; Start 11/07/18 at 10:00 Loperamide HCl (Imodium Cap) 2 mg QID PRN PO DIARRHEA Last administered on 02:45; Admin Dose 2 MG; Start 11/07/18 at 10:30 Amiodarone HCl (Cordarone) 100 mg DAILY PO Last administered on 11/10/18 08:52; Admin Dose 100 MG; Start 11/08/18 at 09:00 Apixaban (Eliquis) 2.5 mg BID PO Last administered on 11/10/18 21:49; Admin Dose 2.5 MG; Start 11/07/18 at 12:00 Cholecalciferol (Vitamin D) 2,000 unit DAILY PO Last administered on 11/10/18 08:54; Admin Dose 2,000 UNIT; Start 11/08/18 at 09:00 Donepezil HCl (Aricept) 10 mg DAILY PO Last administered on 11/10/18 08:52; A dmin Dose 10 MG; Start 11/08/18 at 09:00 Escitalopram Oxalate (Lexapro) 20 mg DAILY PO Last administered on 11/10/18 08:53; Admin Dose 20 MG; Start 11/08/18 at 09:00 EZETIMIBE (Zetia) 10 mg DAILY PO Last administered on 11/10/18 08:58; Admin Dose 10 MG; Start 11/08/18 at 09:00 Ferrous Sulfate (Ferrous Sulfate (Ec)) 325 mg TID PO Last administered on 11/10/18 12:33; Admin Dose 325 MG; Start 11/07/18 at 13:00 Folic Acid (Folic Acid) 1 mg DAILY PO Last administered on 11/10/18 08:54; Admin Dose 1 MG; Start 11/08/18 at 09:00 Pantoprazole (Protonix Tab) 40 mg DAILY@06 PO Last administered on 11/11/18 06:06; Admin Dose 40 MG; Start 11/08/18 at 06:00 Levothyroxine Sodium (Synthroid) 25 mcg DAILY@0600 PO Last administered on 11/11/18 06:06; Admin Dose 25 MCG; Start 11/08/18 at 06:30 Metoprolol Tartrate (Lopressor) 100 mg BID PO Last administered on 11/10/18 21:49; Admin Dose 100 MG; Start 11/08/18 at 21:00 Ondansetron HCl (Zofran Inj) 4 mg Q6H PRN IV NAUSEA AND/OR VOMITING Last administered on 11/10/18 12:33; Admin Dose 4 MG; Start 11/08/18 at 10:30 Lorazepam (Ativan) 0.5 mg Q6H PRN PO ANXIETY Last administered on 11/10/18 21:48; Admin Dose 0.5 MG; Start 11/09/18 at 00:00 Psyllium Hydrophilic Mucilloid (Metamucil) 1 pkt DAILY PO Last administered on 11/10/18 08:55; Admin Dose 1 PKT; Start 11/10/18 at 09:00 Dextrose/Sodium Chloride 1,000 ml @ 50 mls/hr Q20H IV Last administered on 11/11/18 04:22; Admin Dose 40 MLS/HR; Start 11/09/18 at 22:00 BEVERLY BOWDEN Nov 11, 2018 07:28
[2018-11-11] MEDS: CHOLECALCIFEROL 2,000 UNIT CAP PO SCH (08:56)
[2018-11-11] MEDS: FOLIC ACID 1 MG TAB PO SCH (08:56)
[2018-11-11] MEDS: ESCITALOPRAM 10 MG TAB PO SCH (08:56)
[2018-11-11] MEDS: APIXABAN 5 MG TABLET PO SCH ×2 (08:56→21:42)
[2018-11-11] MEDS: EZETIMIBE 10 MG TAB PO SCH (08:56)
[2018-11-11] MEDS: PSYLLIUM 28% PACKET PO SCH (08:57)
[2018-11-11] MEDS: DONEPEZIL 10 MG TAB PO SCH (08:57)
[2018-11-11] MEDS: FERROUS SULFATE (EC) 325 MG TAB PO SCH ×3 (08:57→21:00)
[2018-11-11] MEDS: METOPROLOL 100 MG TAB PO SCH ×2 (08:57→21:41)
[2018-11-11] MEDS: AMIODARONE 200 MG TAB PO SCH (08:58)
[2018-11-11] MEDS: ONDANSETRON 4 MG INJ IV PRN (12:30)
--- NOTE | 2018-11-11 16:56 | CONS ---
Assessment/Plan Assessment/Plan Assessment/Plan (Daily) 1. acute kidney injury on CKD III due to hemodynamics from CHF 2. acute Hyponatremia due to CHF 3. acute decompensated CHF, acute on chronic 4. Atriall fibrillation, initially RVR on admission, now rate controlled 5. Possible colitis 6. h/o HTN 7. H/o Dyslipidemia Plan: BUN/Cr went up 43/2.56, Na 129- d/c PO lasix due to overdiuresis, Continue IVF D51/2 NS at 50 cc/hr, d/c IV cipro, only continue IV Flagyl for colitis amiodarone 100mg po daily, Eliqus 2.5 mg pO BID, will follow up Consultation Date/Type/Reason Admit Date/Time Nov 07, 2018 at 12:41 Initial Consult Date 11/09/18 Type of Consult NEPHROLOGY Requesting Provider: REJI KAUFFMAN MD Date/Time of Note DATE: 11/11/18 TIME: 16:56 Exam/Review of Systems Exam Vitals Vital Signs Date Temp Pulse Resp B/P (MAP) Pulse Ox O2 O2 Flow FiO2 Time Delivery Rate 11/11/18 96.6 71 22 115/57 96 Room Air 15:37 (76) Intake and Output 11/10/18 11/10/18 11/11/18 1414:59 22:59 06:59 IntakeIntake Total 860 ml 300 ml OutputOutput Total 200 ml BalanceBalance 860 ml 100 ml Exam Constitutional: No distress Head: normocephalic, atraumatic Eyes: nl lids ENMT: nl external ears & nose Neck: No bruits Respiratory: clear to auscultation, normal air movement Cardiovascular: regular rate and rhythm, irregular rhythm Gastrointestinal: soft, non-tender, bowel sounds Extremities: edema (2+ edema to knees bilaterally, mild edema in both hands) Skin: nl turgor Results Result Diagram: 11/11/1844211/11/18442 Results 24hrs Laboratory Tests Test 11/11/18 04:43 White Blood Count 6.6 Red Blood Count 3.79 L Hemoglobin 12.4 Hematocrit 37.4 Mean Corpuscular Volume 98.7 Mean Corpuscular Hemoglobin 32.7 Mean Corpuscular Hemoglobin Concent 33.2 Red Cell Distribution Width 20.0 H Platelet Count 105 L Mean Platelet Volume 11.4 H Immature Granulocytes % 0.300 Neutrophils % 50.1 Lymphocytes % 40.5 Monocytes % 8.6 Eosinophils % 0.3 Basophils % 0.2 Nucleated Red Blood Cells % 4.6 H Immature Granulocytes # 0.020 Neutrophils # 3.3 Lymphocytes # 2.7 Monocytes # 0.6 Eosinophils # 0.0 Basophils # 0.0 Nucleated Red Blood Cells # 0.3 H Sodium Level 129 L Potassium Level 5.0 Chloride Level 97 Carbon Dioxide Level 23 Anion Gap 9 Blood Urea Nitrogen 43 H Creatinine 2.56 H Est Glomerular Filtrat Rate mL/min Glucose Level 106 Calcium Level 8.0 L Medications Medication Current Medications Ciprofloxacin/ Dextrose 200 ml @ 200 mls/hr Q24H IVPB Last administered on 11/08/18 02:51; Admin Dose 200 MLS/HR; Start 11/08/18 at 03:00; Status Hold Metronidazole 100 ml @ 100 mls/hr Q8 IVPB Last administered on 11/07/18 22:15; Admin Dose 100 MLS/HR; Start 11/07/18 at 14:00; Status Hold Acetaminophen (Tylenol Tab) 650 mg Q6H PRN PO MILD PAIN(1-3)OR ELEVATED TEMP; Start 11/07/18 at 10:00 Loperamide HCl (Imodium Cap) 2 mg QID PRN PO DIARRHEA Last administered on 11/09/18 02:45; Admin Dose 2 MG; Start 11/07/18 at 10:30 Amiodarone HCl (Cordarone) 100 mg DAILY PO Last administered on 11/11/18 08:58; Admin Dose 100 MG; Start 11/08/18 at 09:00 Apixaban (Eliquis) 2.5 mg BID PO Last administered on 11/11/18 08:56; Admin Dose 2.5 MG; Start 11/07/18 at 12:00 Cholecalciferol (Vitamin D) 2,000 unit DAILY PO Last administered on 11/11/18 08:56; Admin Dose 2,000 UNIT; Start 11/08/18 at 09:00 Donepezil HCl (Aricept) 10 mg DAILY PO Last administered on 11/11/18 08:57; Admin Dose 10 MG; Start 11/08/18 at 09:00 Escitalopram Oxalate (Lexapro) 20 mg DAILY PO Last administered on 11/11/18 08:56; Admin Dose 20 MG; Start 11/08/18 at 09:00 EZETIMIBE (Zetia) 10 mg DAILY PO Last administered on 11/11/18 08:56; Admin Dose 10 MG; Start 11/08/18 at 09:00 Ferrous Sulfate (Ferrous Sulfate (Ec)) 325 mg TID PO Last administered on 11/11/18 12:26; Admin Dose 325 MG; Start 11/07/18 at 13:00 Folic Acid (Folic Acid) 1 mg DAILY PO Last administered on 11/11/18 08:56; Admin Dose 1 MG; Start 11/08/18 at 09:00 Pantoprazole (Protonix Tab) 40 mg DAILY@06 PO Last administered on 11/11/18 06:06; Admin Dose 40 MG; Start 11/08/18 at 06:00 Levothyroxine Sodium (Synthroid) 25 mcg DAILY@0600 PO Last administered on 11/11/18 06:06; Admin Dose 25 MCG; Start 11/08/18 at 06:30 Metoprolol Tartrate (Lopressor) 100 mg BID PO Last administered on 11/11/18 08:57; Admin Dose 100 MG; Start 11/08/18 at 21:00 Ondansetron HCl (Zofran Inj) 4 mg Q6H PRN IV NAUSEA AND/OR VOMITING Last administered on 11/11/18 12:30; Admin Dose 4 MG; Start 11/08/18 at 10:30 Lorazepam (Ativan) 0.5 mg Q6H PRN PO ANXIETY Last administered on 11/10/18 21:48; Admin Dose 0.5 MG; Start 11/09/18 at 00:00 Psyllium Hydrophilic Mucilloid (Metamucil) 1 pkt DAILY PO Last administered on 11/11/18 08:57; Admin Dose 1 PKT; Start 11/10/18 at 09:00 Dextrose/Sodium Chloride 1,000 ml @ 50 mls/hr Q20H IV Last administered on 11/11/18 04:22; Admin Dose 40 MLS/HR; Start 11/09/18 at 22:00 BEATRIZ PLEITEZ MD Nov 11, 2018 16:56
--- NOTE | 2018-11-11 19:34 | CONS ---
Assessment/Plan Assessment/Plan Assessment/Plan (Daily) Assessment/Plan (Daily) IMPRESSION: 1. Nausea, vomiting and diarrhea which have subsided now, most probably related to viral infection or of infectious etiology. 2. Atrial fibrillation for which she is on Eliquis. 3. Status post pacemaker insertion. 4. Dyslipidemia. 5. Hypothyroidism. 6. Hypertension. 7. Fatigue most probably related to depression 8. Pedal edema pitting all the way up to knee Plan Metamucil for constipation and incomplete evacuation Lexapro exercise upon discharge Bladder scan to make sure there is no bladder outlet obstruction. If there is no bladder outlet obstruction then patient may need more IV fluid since the creatinine is going up Judicious use of fluid and monitoring creatinine. Consultation Date/Type/Reason Admit Date/Time Nov 07, 2018 at 12:41 Initial Consult Date Requesting Provider: REJI KAUFFMAN MD Date/Time of Note DATE: 11/11/18 TIME: 19:33 24 HR Interval Summary Free Text/Dictation Urine output is poor Moving her bowel stool is solid blood in the form of broken pieces. No GI bleeding no vomiting Exam/Review of Systems Exam Vitals Vital Signs Date Temp Pulse Resp B/P (MAP) Pulse Ox O2 O2 Flow FiO2 Time Delivery Rate 11/11/18 70 16:00 11/11/18 96.6 22 115/57 96 Room Air 15:37 (76) Intake and Output 11/10/18 11/10/18 11/11/18 1515:00 23:00 07:00 IntakeIntake Total 860 ml 300 ml OutputOutput Total 200 ml BalanceBalance 860 ml 100 ml Constitutional: alert, oriented Eyes: nl conjunctiva, EOMI, nl lids, nl sclera, PERRL Gastrointestinal: nl liver, spleen Extremities: edema, pitting pedal edema Results Result Diagram: 11/11/18 0443 11/11/18 0443 Results 24hrs Laboratory Tests Test 11/11/18 04:43 White Blood Count 6.6 Red Blood Count 3.79 L Hemoglobin 12.4 Hematocrit 37.4 Mean Corpuscular Volume 98.7 Mean Corpuscular Hemoglobin 32.7 Mean Corpuscular Hemoglobin Concent 33.2 Red Cell Distribution Width 20.0 H Platelet Count 105 L Mean Platelet Volume 11.4 H Immature Granulocytes % 0.300 Neutrophils % 50.1 Lymphocytes % 40.5 Monocytes % 8.6 Eosinophils % 0.3 Basophils % 0.2 Nucleated Red Blood Cells % 4.6 H Immature Granulocytes # 0.020 Neutrophils # 3.3 Lymphocytes # 2.7 Monocytes # 0.6 Eosinophils # 0.0 Basophils # 0.0 Nucleated Red Blood Cells # 0.3 H Sodium Level 129 L Potassium Level 5.0 Chloride Level 97 Carbon Dioxide Level 23 Anion Gap 9 Blood Urea Nitrogen 43 H Creatinine 2.56 H Est Glomerular Filtrat Rate mL/min Glucose Level 106 Calcium Level 8.0 L Medications Medication Current Medications Ciprofloxacin/ Dextrose 200 ml @ 200 mls/hr Q24H IVPB Last administered on 11/08/18 02:51; Admin Dose 200 MLS/HR; Start 11/08/18 at 03:00; Status Hold Metronidazole 100 ml @ 100 mls/hr Q8 IVPB Last administered on 11/07/18 22:15; Admin Dose 100 MLS/HR; Start 11/07/18 at 14:00; Status Hold Acetaminophen (Tylenol Tab) 650 mg Q6H PRN PO MILD PAIN(1-3)OR ELEVATED TEMP; Start 11/07/18 at 10:00 Loperamide HCl (Imodium Cap) 2 mg QID PRN PO DIARRHEA Last administered on 11/09/18 02:45; Admin Dose 2 MG; Start 11/07/18 at 10:30 Amiodarone HCl (Cordarone) 100 mg DAILY PO Last administered on 11/11/18 08:58; Admin Dose 100 MG; Start 11/08/18 at 09:00 Apixaban (Eliquis) 2.5 mg BID PO Last administered on 11/11/18 08:56; Admin Dose 2.5 MG; Start 11/07/18 at 12:00 Cholecalciferol (Vitamin D) 2,000 unit DAILY PO Last administered on 11/11/18 08:56; Admin Dose 2,000 UNIT; Start 11/08/18 at 09:00 Donepezil HCl (Aricept) 10 mg DAILY PO Last administered on 11/11/18 08:57; Admin Dose 10 MG; Start 11/08/18 at 09:00 Escitalopram Oxalate (Lexapro) 20 mg DAILY PO Last administered on 11/11/18 08:56; Admin Dose 20 MG; Start 11/08/18 at 09:00 EZETIMIBE (Zetia) 10 mg DAILY PO Last administered on 11/11/18 08:56; Admin Dose 10 MG; Start 11/08/18 at 09:00 Ferrous Sulfate (Ferrous Sulfate (Ec)) 325 mg TID PO Last administered on 11/11/18 12:26; Admin Dose 325 MG; Start 11/07/18 at 13:00 Folic Acid (Folic Acid) 1 mg DAILY PO Last administered on 11/11/18 08:56; Admin Dose 1 MG; Start 11/08/18 at 09:00 Pantoprazole (Protonix Tab) 40 mg DAILY@06 PO Last administered on 11/11/18 06:06; Admin Dose 40 MG; Start 11/08/18 at 06:00 Levothyroxine Sodium (Synthroid) 25 mcg DAILY@0600 PO Last administered on 11/11/18 06:06; Admin Dose 25 MCG; Start 11/08/18 at 06:30 Metoprolol Tartrate (Lopressor) 100 mg BID PO Last administered on 11/11/18 08:57; Admin Dose 100 MG; Start 11/08/18 at 21:00 Ondansetron HCl (Zofran Inj) 4 mg Q6H PRN IV NAUSEA AND/OR VOMITING Last administered on 11/11/18 12:30; Admin Dose 4 MG; Start 11/08/18 at 10:30 Lorazepam (Ativan) 0.5 mg Q6H PRN PO ANXIETY Last administered on 11/10/18 21:48; Admin Dose 0.5 MG; Start 11/09/18 at 00:00 Psyllium Hydrophilic Mucilloid (Metamucil) 1 pkt DAILY PO Last administered on 11/11/18 08:57; Admin Dose 1 PKT; Start 11/10/18 at 09:00 Dextrose/Sodium Chloride 1,000 ml @ 50 mls/hr Q20H IV Last administered on 11/11/18 04:22; Admin Dose 40 MLS/HR; Start 11/09/18 at 22:00 TNOY SHETTY MD Nov 11, 2018 19:34
[2018-11-11] MEDS: LORAZEPAM 0.5 MG TAB PO PRN (23:18)
[2018-11-12] VITALS (12 sets, daily range): BP systolic 109–145; BP diastolic 59–75; PULSE 69–115; RESP 17–19
[2018-11-12] MEDS: PANTOPRAZOLE (EC) 40 MG TAB PO SCH (07:29)
[2018-11-12] MEDS: LEVOTHYROXINE 25 MCG TAB PO SCH (07:29)
--- NOTE | 2018-11-12 08:08 | CONS ---
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 JACKELIN Mitral and tricuspid valve disorder PAF HTN HLP PPM Plan: Reduced diuresis given worsening renal function with diuresis in A paced rhythm Beta carine anticoagulation no KELI/ARB due to renal function dw daughter in detail, answered all question Consultation Date/Type/Reason Admit Date/Time Nov 07, 2018 at 12:41 Initial Consult Date 11/09/18 Type of Consult Cardiology Requesting Provider: REJI KAUFFMAN MD Date/Time of Note DATE: 11/12/18 TIME: 08:04 24 HR Interval Summary Free Text/Dictation whole body pain per patient, daughter at bedside, no sob or chest pain Constitutional: poor po Detailed Summary Respiratory: no complaints Cardiovascular: no complaints Gastrointestinal: no complaints Musculoskeletal: back pain, bone/joint pain Neurologic: no complaints Exam/Review of Systems Vital Signs Vitals Vital Signs Date Temp Pulse Resp B/P (MAP) Pulse Ox O2 O2 Flow FiO2 Time Delivery Rate 11/12/18 98.0 69 18 109/64 98 07:30 (79) 11/12/18 Room Air 00:00 Intake and Output 11/11/18 11/11/18 11/12/18 1515:00 23:00 07:00 IntakeIntake Total 250 ml OutputOutput Total 75 ml BalanceBalance 175 ml Exam Constitutional: alert, oriented Head: normocephalic, atraumatic Neck: jvd Respiratory: diminished breath sounds Cardiovascular: regular rate and rhythm Gastrointestinal: soft Musculoskeletal: muscle weakness, range of motion Extremities: edema Labs Result Diagram: 11/12/18 0501 11/12/18 0500 Results 24hrs Laboratory Tests Test 11/12/18 05:00 11/12/18 05:01 Prothrombin Time 26.3 H Prothrombin Time Ratio 2.1 INR International Normalized Ratio 2.41 Activated Partial Thromboplast Time 35.8 H Sodium Level 128 L Potassium Level 4.5 Chloride Level 98 Carbon Dioxide Level 20 L Anion Gap 10 Blood Urea Nitrogen 44 H Creatinine 2.19 H Est Glomerular Filtrat Rate mL/min Glucose Level 107 Calcium Level 7.5 L Magnesium Level 2.1 Total Bilirubin 0.8 Direct Bilirubin 0.00 Indirect Bilirubin 0.8 Aspartate Amino Transf (AST/SGOT) 124 H Alanine Aminotransferase (ALT/SGPT) 167 H Alkaline Phosphatase 126 H B-Type Natriuretic Peptide 3640 H Total Protein 5.4 L Albumin 2.8 L Globulin 2.60 Albumin/Globulin Ratio 1.07 White Blood Count 6.7 Red Blood Count 3.58 L Hemoglobin 11.9 L Hematocrit 34.9 L Mean Corpuscular Volume 97.5 Mean Corpuscular Hemoglobin 33.2 H Mean Corpuscular Hemoglobin Concent 34.1 Red Cell Distribution Width 20.0 H Platelet Count 107 L Mean Platelet Volume 11.4 H Immature Granulocytes % 0.500 H Neutrophils % 60.3 Lymphocytes % 28.3 Monocytes % 10.4 Eosinophils % 0.3 Basophils % 0.2 Nucleated Red Blood Cells % 2.3 H Immature Granulocytes # 0.030 Neutrophils # 4.0 Lymphocytes # 1.9 Monocytes # 0.7 Eosinophils # 0.0 Basophils # 0.0 Nucleated Red Blood Cells # 0.2 H Medications Medications Current Medications Ciprofloxacin/ Dextrose 200 ml @ 200 mls/hr Q24H IVPB Last administered on 11/08/18 02:51; Admin Dose 200 MLS/HR; Start 11/08/18 at 03:00; Status Hold Metronidazole 100 ml @ 100 mls/hr Q8 IVPB Last administered on 11/07/18 22:15; Admin Dose 100 MLS/HR; Start 11/07/18 at 14:00; Status Hold Acetaminophen (Tylenol Tab) 650 mg Q6H PRN PO MILD PAIN(1-3)OR ELEVATED TEMP Last administered on 11/12/18 00:29; Admin Dose 650 MG; Start 11/07/18 at 10:00 Loperamide HCl (Imodium Cap) 2 mg QID PRN PO DIARRHEA Last administered on 11/09/18 02:45; Admin Dose 2 MG; Start 11/07/18 at 10:30 Amiodarone HCl (Cordarone) 100 mg DAILY PO Last administered on 11/11/18 08:58; Admin Dose 100 MG; Start 11/08/18 at 09:00 Apixaban (Eliquis) 2.5 mg BID PO Last administered on 11/11/18 21:42; Admin Dose 2.5 MG; Start 11/07/18 at 12:00 Cholecalciferol (Vitamin D) 2,000 unit DAILY PO Last administered on 11/11/18 08:56; Admin Dose 2,000 UNIT; Start 11/08/18 at 09:00 Donepezil HCl (Aricept) 10 mg DAILY PO Last administered on 11/11/18 08:57; Admin Dose 10 MG; Start 11/08/18 at 09:00 Escitalopram Oxalate (Lexapro) 20 mg DAILY PO Last administered on 11/11/18 08:56; Admin Dose 20 MG; Start 11/08/18 at 09:00 EZETIMIBE (Zetia) 10 mg DAILY PO Last administered on 11/11/18 08:56; Admin Dose 10 MG; Start 11/08/18 at 09:00 Ferrous Sulfate (Ferrous Sulfate (Ec)) 325 mg TID PO Last administered on 11/11/18 12:26; Admin Dose 325 MG; Start 11/07/18 at 13:00 Folic Acid (Folic Acid) 1 mg DAILY PO Last administered on 11/11/18 08:56; Admin Dose 1 MG; Start 11/08/18 at 09:00 Pantoprazole (Protonix Tab) 40 mg DAILY@06 PO Last administered on 11/12/18 07:29; Admin Dose 40 MG; Start 11/08/18 at 06:00 Levothyroxine Sodium (Synthroid) 25 mcg DAILY@0600 PO Last administered on 11/12/18 07:29; Admin Dose 25 MCG; Start 11/08/18 at 06:30 Metoprolol Tartrate (Lopressor) 100 mg BID PO Last administered on 11/11/18 21:41; Admin Dose 100 MG; Start 11/08/18 at 21:00 Ondansetron HCl (Zofran Inj) 4 mg Q6H PRN IV NAUSEA AND/OR VOMITING Last administered on 11/11/18 12:30; Admin Dose 4 MG; Start 11/08/18 at 10:30 Lorazepam (Ativan) 0.5 mg Q6H PRN PO ANXIETY Last administered on 11/11/18 23:18; Admin Dose 0.5 MG; Start 11/09/18 at 00:00 Psyllium Hydrophilic Mucilloid (Metamucil) 1 pkt DAILY PO Last administered on 11/11/18 08:57; Admin Dose 1 PKT; Start 11/10/18 at 09:00 Dextrose/Sodium Chloride 1,000 ml @ 50 mls/hr Q20H IV Last administered on 11/11/18at 23:18; Admin Dose 50 MLS/HR; Start 11/09/18 at 22:00 BRANDIE LOWRY MD Nov 12, 2018 08:08
[2018-11-12] MEDS: METOPROLOL 100 MG TAB PO SCH ×2 (08:36→21:04)
[2018-11-12] MEDS: FOLIC ACID 1 MG TAB PO SCH (08:52)
[2018-11-12] MEDS: FERROUS SULFATE (EC) 325 MG TAB PO SCH ×3 (08:52→21:03)
[2018-11-12] MEDS: EZETIMIBE 10 MG TAB PO SCH (08:52)
[2018-11-12] MEDS: CHOLECALCIFEROL 2,000 UNIT CAP PO SCH (08:52)
[2018-11-12] MEDS: DONEPEZIL 10 MG TAB PO SCH (08:53)
[2018-11-12] MEDS: APIXABAN 5 MG TABLET PO SCH ×2 (08:53→21:02)
[2018-11-12] MEDS: ESCITALOPRAM 10 MG TAB PO SCH (08:53)
[2018-11-12] MEDS: PSYLLIUM 28% PACKET PO SCH (08:54)
[2018-11-12] MEDS: AMIODARONE 200 MG TAB PO SCH (08:54)
--- NOTE | 2018-11-12 11:31 | CONS ---
Assessment/Plan Assessment/Plan Assessment/Plan (Daily) 1. acute kidney injury on CKD III due to hemodynamics from CHF 2. acute Hyponatremia due to CHF 3. acute decompensated CHF, acute on chronic 4. Atriall fibrillation, initially RVR on admission, now rate controlled 5. Possible colitis 6. h/o HTN 7. H/o Dyslipidemia Plan: Na 128, BUN/Cr 44/2.19, BP stable, still fluid overloaded with significant LE edema - will give bumex gtt at 1 mg/hr x 12 hr then reassess in AM only continue IV Flagyl for colitis d/c IVF due to fluid overload amiodarone 100mg po daily, Eliqus 2.5 mg pO BID, will follow up Consultation Date/Type/Reason Admit Date/Time Nov 07, 2018 at 12:41 Initial Consult Date 11/09/18 Type of Consult NEPHROLOGY Requesting Provider: REJI KAUFFMAN MD Date/Time of Note DATE: 11/12/18 TIME: 11:31 24 HR Interval Summary Free Text/Dictation Na 128, BUN/Cr 44/2.19, BP stable, still fluid overloaded with significant LE edema Exam/Review of Systems Exam Vitals Vital Signs Date Temp Pulse Resp B/P (MAP) Pulse Ox O2 O2 Flow FiO2 Time Delivery Rate 11/12/18 70 08:00 11/12/18 98.0 18 109/64 98 07:30 (79) 11/12/18 Room Air 00:00 Intake and Output 11/11/18 11/11/18 11/12/18 1515:00 23:00 07:00 IntakeIntake Total 250 ml OutputOutput Total 75 ml BalanceBalance 175 ml Results Result Diagram: 11/12/18 0501 11/12/18 0500 Results 24hrs Laboratory Tests Test 11/12/18 05:00 11/12/18 05:01 Prothrombin Time 26.3 H Prothrombin Time Ratio 2.1 INR International Normalized Ratio 2.41 Activated Partial Thromboplast Time 35.8 H Sodium Level 128 L Potassium Level 4.5 Chloride Level 98 Carbon Dioxide Level 20 L Anion Gap 10 Blood Urea Nitrogen 44 H Creatinine 2.19 H Est Glomerular Filtrat Rate mL/min Glucose Level 107 Calcium Level 7.5 L Magnesium Level 2.1 Total Bilirubin 0.8 Direct Bilirubin 0.00 Indirect Bilirubin 0.8 Aspartate Amino Transf (AST/SGOT) 124 H Alanine Aminotransferase (ALT/SGPT) 167 H Alkaline Phosphatase 126 H B-Type Natriuretic Peptide 3640 H Total Protein 5.4 L Albumin 2.8 L Globulin 2.60 Albumin/Globulin Ratio 1.07 White Blood Count 6.7 Red Blood Count 3.58 L Hemoglobin 11.9 L Hematocrit 34.9 L Mean Corpuscular Volume 97.5 Mean Corpuscular Hemoglobin 33.2 H Mean Corpuscular Hemoglobin Concent 34.1 Red Cell Distribution Width 20.0 H Platelet Count 107 L Mean Platelet Volume 11.4 H Immature Granulocytes % 0.500 H Neutrophils % 60.3 Lymphocytes % 28.3 Monocytes % 10.4 Eosinophils % 0.3 Basophils % 0.2 Nucleated Red Blood Cells % 2.3 H Immature Granulocytes # 0.030 Neutrophils # 4.0 Lymphocytes # 1.9 Monocytes # 0.7 Eosinophils # 0.0 Basophils # 0.0 Nucleated Red Blood Cells # 0.2 H Medications Medication Current Medications Ciprofloxacin/ Dextrose 200 ml @ 200 mls/hr Q24H IVPB Last administered on 11/08/18 02:51; Admin Dose 200 MLS/HR; Start 11/08/18 at 03:00; Status Hold Metronidazole 100 ml @ 100 mls/hr Q8 IVPB Last administered on 11/07/18 22:15; Admin Dose 100 MLS/HR; Start 11/07/18 at 14:00; Status Hold Acetaminophen (Tylenol Tab) 650 mg Q6H PRN PO MILD PAIN(1-3)OR ELEVATED TEMP Last administered on 11/12/18 00:29; Admin Dose 650 MG; Start 11/07/18 at 10:00 Loperamide HCl (Imodium Cap) 2 mg QID PRN PO DIARRHEA Last administered on 11/09/18 02:45; Admin Dose 2 MG; Start 11/07/18 at 10:30 Amiodarone HCl (Cordarone) 100 mg DAILY PO Last administered on 11/12/18 08:54; Admin Dose 100 MG; Start 11/08/18 at 09:00 Apixaban (Eliquis) 2.5 mg BID PO Last administered on 11/12/18 08:53; Admin Dose 2.5 MG; Start 11/07/18 at 12:00 Cholecalciferol (Vitamin D) 2,000 unit DAILY PO Last administered on 11/12/18 08:52; Admin Dose 2,000 UNIT; Start 11/08/18 at 09:00 Donepezil HCl (Aricept) 10 mg DAILY PO Last administered on 11/12/18 08:53; Admin Dose 10 MG; Start 11/08/18 at 09:00 Escitalopram Oxalate (Lexapro) 20 mg DAILY PO Last administered on 11/12/18 08:53; Admin Dose 20 MG; Start 11/08/18 at 09:00 EZETIMIBE (Zetia) 10 mg DAILY PO Last administered on 11/12/18 08:52; Admin Dose 10 MG; Start 11/08/18 at 09:00 Ferrous Sulfate (Ferrous Sulfate (Ec)) 325 mg TID PO Last administered on 11/12/18 08:52; Admin Dose 325 MG; Start 11/07/18 at 13:00 Folic Acid (Folic Acid) 1 mg DAILY PO Last administered on 11/12/18 08:52; Admin Dose 1 MG; Start 11/08/18 at 09:00 Pantoprazole (Protonix Tab) 40 mg DAILY@06 PO Last administered on 11/12/18 07:29; Admin Dose 40 MG; Start 11/08/18 at 06:00 Levothyroxine Sodium (Synthroid) 25 mcg DAILY@0600 PO Last administered on 11/12/18 07:29; Admin Dose 25 MCG; Start 11/08/18 at 06:30 Metoprolol Tartrate (Lopressor) 100 mg BID PO Last administered on 11/11/18 21:41; Admin Dose 100 MG; Start 11/08/18 at 21:00 Ondansetron HCl (Zofran Inj) 4 mg Q6H PRN IV NAUSEA AND/OR VOMITING Last administered on 11/11/18 12:30; Admin Dose 4 MG; Start 11/08/18 at 10:30 Lorazepam (Ativan) 0.5 mg Q6H PRN PO ANXIETY Last administered on 11/11/18 23:18; Admin Dose 0.5 MG; Start 11/09/18 at 00:00 Psyllium Hydrophilic Mucilloid (Metamucil) 1 pkt DAILY PO Last administered on 11/12/18 08:54; Admin Dose 1 PKT; Start 11/10/18 at 09:00 Dextrose/Sodium Chloride 1,000 ml @ 50 mls/hr Q20H IV Last administered on 11/11/18at 23:18; Admin Dose 50 MLS/HR; Start 11/09/18 at 22:00 BEATRIZ PLEITEZ MD Nov 12, 2018 11:31
[2018-11-12] MEDS ORDERED: DEXTROSE 5%-0.9% NACL 1,000 ML IV SCH (12:00)
[2018-11-12] MEDS: ONDANSETRON 4 MG INJ IV PRN (12:55)
[2018-11-12] MEDS ORDERED: FUROSEMIDE 20 MG INJ IV STA (14:13)
--- NOTE | 2018-11-12 15:03 | PN ---
Date/Time of Note Date/Time of Note DATE: 11/12/18 TIME: 14:55 Assessment/Plan VTE Prophylaxis Risk score (from Ns)>0 risk: 8 SCD applied (from Ns): Yes Pharmacological prophylaxis: apixaban Lines/Catheters IV Catheter Type (from Nrs): Mid Line Central line still needed: Yes Urinary Cath still in place: No Assessment/Plan Hospital Course Patient is awake alert, heart rate is well controlled. Patient daughter is at bedside concerned with increasing generalized edema, patient is currently on IV fluids due to decreased urinary output. Patient denies any emesis however complains of mild nausea and constipation. Will decrease IV fluids and check chest x-ray. Assessment/Plan -Atrial fibrillation with initially rapid ventricular rates, improved. continue Eliquis and metoprolol. Dr Mayers is following in cardiology consultation. -Nausea vomiting and diarrhea for 2 days. f/up on stool for C. difficile, ova and parasites. Dr. Merchant is following in gastroenterology consultation. -Colitis per CT scan. S/p Levaquin and Flagyl. -CHF, continue Lasix -Hypertension, continue metoprolol Norvasc and Cozaar -PPM -Hypothyroidism -Rheumatoid arthritis Further recommendations based on clinical course. Plan of care discussed with Dr. Rayo. Result Diagram: 11/12/18 0501 11/12/18 0500 Results 24hrs Laboratory Tests Test 11/12/18 05:00 11/12/18 05:01 Prothrombin Time 26.3 H Prothrombin Time Ratio 2.1 INR International Normalized Ratio 2.41 Activated Partial Thromboplast Time 35.8 H Sodium Level 128 L Potassium Level 4.5 Chloride Level 98 Carbon Dioxide Level 20 L Anion Gap 10 Blood Urea Nitrogen 44 H Creatinine 2.19 H Est Glomerular Filtrat Rate mL/min Glucose Level 107 Calcium Level 7.5 L Magnesium Level 2.1 Total Bilirubin 0.8 Direct Bilirubin 0.00 Indirect Bilirubin 0.8 Aspartate Amino Transf (AST/SGOT) 124 H Alanine Aminotransferase (ALT/SGPT) 167 H Alkaline Phosphatase 126 H B-Type Natriuretic Peptide 3640 H Total Protein 5.4 L Albumin 2.8 L Globulin 2.60 Albumin/Globulin Ratio 1.07 White Blood Count 6.7 Red Blood Count 3.58 L Hemoglobin 11.9 L Hematocrit 34.9 L Mean Corpuscular Volume 97.5 Mean Corpuscular Hemoglobin 33.2 H Mean Corpuscular Hemoglobin Concent 34.1 Red Cell Distribution Width 20.0 H Platelet Count 107 L Mean Platelet Volume 11.4 H Immature Granulocytes % 0.500 H Neutrophils % 60.3 Lymphocytes % 28.3 Monocytes % 10.4 Eosinophils % 0.3 Basophils % 0.2 Nucleated Red Blood Cells % 2.3 H Immature Granulocytes # 0.030 Neutrophils # 4.0 Lymphocytes # 1.9 Monocytes # 0.7 Eosinophils # 0.0 Basophils # 0.0 Nucleated Red Blood Cells # 0.2 H Exam/Review of Systems Exam Vitals Vital Signs Date Temp Pulse Resp B/P (MAP) Pulse Ox O2 O2 Flow FiO2 Time Delivery Rate 11/12/18 98.0 70 18 145/71 98 12:39 (95) 11/12/18 Room Air 00:00 Intake and Output 11/11/18 11/11/18 11/12/18 1515:00 23:00 07:00 IntakeIntake Total 250 ml OutputOutput Total 75 ml BalanceBalance 175 ml Exam Constitutional: alert, oriented Respiratory: clear to auscultation Cardiovascular: irregular rhythm, other (L chest PPM) Gastrointestinal: soft, non-tender Musculoskeletal: nl extremities to inspection Extremities: normal pulses Neurological: nl mental status Results Results 24hrs Laboratory Tests Test 11/12/18 05:00 11/12/18 05:01 Prothrombin Time 26.3 H Prothrombin Time Ratio 2.1 INR International Normalized Ratio 2.41 Activated Partial Thromboplast Time 35.8 H Sodium Level 128 L Potassium Level 4.5 Chloride Level 98 Carbon Dioxide Level 20 L Anion Gap 10 Blood Urea Nitrogen 44 H Creatinine 2.19 H Est Glomerular Filtrat Rate mL/min Glucose Level 107 Calcium Level 7.5 L Magnesium Level 2.1 Total Bilirubin 0.8 Direct Bilirubin 0.00 Indirect Bilirubin 0.8 Aspartate Amino Transf (AST/SGOT) 124 H Alanine Aminotransferase (ALT/SGPT) 167 H Alkaline Phosphatase 126 H B-Type Natriuretic Peptide 3640 H Total Protein 5.4 L Albumin 2.8 L Globulin 2.60 Albumin/Globulin Ratio 1.07 White Blood Count 6.7 Red Blood Count 3.58 L Hemoglobin 11.9 L Hematocrit 34.9 L Mean Corpuscular Volume 97.5 Mean Corpuscular Hemoglobin 33.2 H Mean Corpuscular Hemoglobin Concent 34.1 Red Cell Distribution Width 20.0 H Platelet Count 107 L Mean Platelet Volume 11.4 H Immature Granulocytes % 0.500 H Neutrophils % 60.3 Lymphocytes % 28.3 Monocytes % 10.4 Eosinophils % 0.3 Basophils % 0.2 Nucleated Red Blood Cells % 2.3 H Immature Granulocytes # 0.030 Neutrophils # 4.0 Lymphocytes # 1.9 Monocytes # 0.7 Eosinophils # 0.0 Basophils # 0.0 Nucleated Red Blood Cells # 0.2 H Medications Medication Current Medications Ciprofloxacin/ Dextrose 200 ml @ 200 mls/hr Q24H IVPB Last administered on 11/08/18 02:51; Admin Dose 200 MLS/HR; Start 11/08/18 at 03:00; Status Hold Metronidazole 100 ml @ 100 mls/hr Q8 IVPB Last administered on 11/07/18 22:15; Admin Dose 100 MLS/HR; Start 11/07/18 at 14:00; Status Hold Acetaminophen (Tylenol Tab) 650 mg Q6H PRN PO MILD PAIN(1-3)OR ELEVATED TEMP Last administered on 11/12/18 00:29; Admin Dose 650 MG; Start 11/07/18 at 10:00 Loperamide HCl (Imodium Cap) 2 mg QID PRN PO DIARRHEA Last administered on 11/09/18 02:45; Admin Dose 2 MG; Start 11/07/18 at 10:30 Amiodarone HCl (Cordarone) 100 mg DAILY PO Last administered on 11/12/18 08:54; Admin Dose 100 MG; Start 11/08/18 at 09:00 Apixaban (Eliquis) 2.5 mg BID PO Last administered on 11/12/18 08:53; Admin Dose 2.5 MG; Start 11/07/18 at 12:00 Cholecalciferol (Vitamin D) 2,000 unit DAILY PO Last administered on 11/12/18 08:52; Admin Dose 2,000 UNIT; Start 11/08/18 at 09:00 Donepezil HCl (Aricept) 10 mg DAILY PO Last administered on 11/12/18 08:53; Admin Dose 10 MG; Start 11/08/18 at 09:00 Escitalopram Oxalate (Lexapro) 20 mg DAILY PO Last administered on 11/12/18 08:53; Admin Dose 20 MG; Start 11/08/18 at 09:00 EZETIMIBE (Zetia) 10 mg DAILY PO Last administered on 11/12/18 08:52; Admin Dose 10 MG; Start 11/08/18 at 09:00 Ferrous Sulfate (Ferrous Sulfate (Ec)) 325 mg TID PO Last administered on 11/12/18 12:55; Admin Dose 325 MG; Start 11/07/18 at 13:00 Folic Acid (Folic Acid) 1 mg DAILY PO Last administered on 11/12/18 08:52; Admin Dose 1 MG; Start 11/08/18 at 09:00 Pantoprazole (Protonix Tab) 40 mg DAILY@06 PO Last administered on 11/12/18 07:29; Admin Dose 40 MG; Start 11/08/18 at 06:00 Levothyroxine Sodium (Synthroid) 25 mcg DAILY@0600 PO Last administered on 11/12/18 07:29; Admin Dose 25 MCG; Start 11/08/18 at 06:30 Metoprolol Tartrate (Lopressor) 100 mg BID PO Last administered on 11/11/18 21:41; Admin Dose 100 MG; Start 11/08/18 at 21:00 Ondansetron HCl (Zofran Inj) 4 mg Q6H PRN IV NAUSEA AND/OR VOMITING Last administered on 11/12/18 12:55; Admin Dose 4 MG; Start 11/08/18 at 10:30 Lorazepam (Ativan) 0.5 mg Q6H PRN PO ANXIETY Last administered on 11/11/18 23:18; Admin Dose 0.5 MG; Start 11/09/18 at 00:00 Psyllium Hydrophilic Mucilloid (Metamucil) 1 pkt DAILY PO Last administered on 11/12/18 08:54; Admin Dose 1 PKT; Start 11/10/18 at 09:00 Dextrose/Sodium Chloride 1,000 ml @ 30 mls/hr Q24H IV Last administered on 11/12/18 11:38; Admin Dose 75 MLS/HR; Start 11/12/18 at 12:00 Furosemide (Lasix) 20 mg BID DIURETICS IV ; Start 11/12/18 at 18:00 OSCAR GAYTAN Nov 12, 2018 15:03
[2018-11-12] MEDS: FUROSEMIDE 20 MG INJ IV SCH (17:30)
--- NOTE | 2018-11-12 17:32 | CONS ---
Assessment/Plan Assessment/Plan Hospital Course (Demo Recall) #Coagulopathy -pt is noted to have an elevated PT (26sec) and PTT(35 sec). The most common ruba son for elevated in both PT and PTT is liver cirrhosis and decreased factor production -There may also be a component of vitamin K deficiency -will check PT and PTT mixing studies at this time to ensure there is no evidence of a factor inhibitor -I do think eliquis can be continued at this time, even though the INR is 2.1, since the INR may fluctuate with his every day diet. Moreover, pt is not b leeding with his elevated INR ane eliquis so I believe this can be continued. #Colitis -GI consulted -continue Levaquin and Flagyl #JACKELIN on CKD -pt getting fluids per osito #CHF -diuresis on hold for JACKELIN #Afib -may continue eliquis as mentioned above #HTN -continue current BP meds #RA -on remicaid as an out patient Thank you for the opportunity to participate in this patients care A total of 40 minutes of face to face time was spent speaking with the patient, of which greater than 50% was spent in counseling and coordination of care and the detailed question and answer session. Consultation Date/Type/Reason Admit Date/Time Nov 07, 2018 at 12:41 Date of Consultation: Nov 12, 2018 Type of Consult hematology Reason for Consultation coagulopathy Requesting Provider: REJI KAUFFMAN MD Date/Time of Note DATE: 11/12/18 TIME: 17:23 Hx of Present Illness 83-year-old female with multiple medical problems including heart failure, hypertension, atrial fibrillation, PPM, hyperlipidemia, thyroidism, dementia, rheumatoid arthritis was admitted from home on 11/07/18 with complaints of vomiting and diarrhea for 2 days and generalized weakness. Per records patient had a recent angiogram that was negative. 11/07/18 CT of the abdomen and pelvis which revealed nonspecific colitis and right basilar atelectasis/infiltrate, and septal nodular contour of the liver which can be seen in settings of cirrhosis. Pt has no history of EtOH abuse. Pt also had afib and is currently on Eliquis. PT also has JACKELIN on CKD 2/2 CHF and is currently receiving fluid resuscitation per nephrology. On labs from today, coags were ordered and pt was noted to have an elevated INR to 2.1. We have been consulted for further workup of this elevated INR. Of note patient is not bleeding and is not scheduled for any procedure. Constitutional: poor po Eyes: no complaints ENT: no complaints Respiratory: shortness of breath Cardiovascular: lightheadedness Gastrointestinal: no complaints, decreased appetite Musculoskeletal: swelling Skin: no complaints Neurologic: no complaints Endocrine: no complaints Lymphatic: no complaints Psychological: depression Past Medical History Medical History: congestive heart failure, high cholesterol, hypertension, hypothyroid, other (PPM, atrial fibrillation) Home Meds Reported Medications Icosapent Ethyl (VASCEPA) 1 Gm Capsule, 1 GM PO QID, CAP 11/07/18 Linaclotide (LINZESS) 145 Mcg Capsule, 145 MCG PO DAILY, #30 CAP 11/07/18 Furosemide* (Furosemide*) 20 Mg Tablet, 20 MG PO DAILY, #60 TAB 11/07/18 Ferrous Sulfate* (Ferrous Sulfate*) 325 Mg Tabec, 325 MG PO TID, TAB 11/07/18 Diclofenac Sodium* (Diclofenac Sodium*) 75 Mg Tablet.dr, 75 MG PO BID, #60 TAB 11/07/18 Cholecalciferol (Vitamin D3) (VITAMIN D-3) 2,000 Unit Capsule, 2000 UNIT PO, CAP 11/07/18 Esomeprazole Magnesium (Esomeprazole Magnesium) 20 Mg Capsule.dr, 20 MG PO BEFORE BREAKFAST, #30 CAP 11/07/18 Escitalopram Oxalate* (Escitalopram Oxalate*) 20 Mg Tablet, 20 MG PO DAILY, #30 TAB 11/07/18 Losartan Potassium* (Losartan Potassium*) 100 Mg Tablet, 100 MG PO DAILY, TAB 11/07/18 Calcium Carbonate* (Calcium Carbonate*) 600 MG Ca Tab, 600 MG PO, TAB 11/07/18 Folic Acid* (Folic Acid*) 1 Mg Tablet, 1 MG PO DAILY, TAB 11/07/18 Apixaban* (Eliquis*) 2.5 Mg Tablet, 2.5 MG PO BID, TAB 11/07/18 Metoprolol Tartrate* (Lopressor*) 100 Mg Tablet, 200 MG PO BID, #120 TAB 11/07/18 Ezetimibe* (Zetia*) 10 Mg Tablet, 10 MG PO DAILY, TAB 11/07/18 Donepezil* (Donepezil*) 10 Mg Tablet, 10 MG PO DAILY, #30 TAB 11/07/18 Amiodarone Hcl* (Amiodarone Hcl*) 200 Mg Tablet, 100 MG PO BID for [id number]-PUC, #60 TAB 11/07/18 Amlodipine Besylate* (Norvasc*) 5 Mg Tablet, 5 MG PO DAILY, TAB 11/07/18 Levocetirizine Dihydrochloride (LEVOCETIRIZINE DIHYDROCHLORIDE) 1 Gm Powder, 1 GM MC 05/03/16 Infliximab (Remicade) 100 Mg Soln, 100 MG IV 6 WEEKS 12/14/11 Levothyroxine Sodium (Levothroid) 25 Mcg Tablet, 25 MCG PO DAILY 12/14/11 Simvastatin (Simvastatin) 20 Mg Tablet, 20 MG PO DAILY 12/14/11 Lorazepam* (Ativan*) 0.5 Mg Tablet, 0.5 MG PO DAILY 12/14/11 Omeprazole* (Omeprazole*) 20 Mg Capsule.dr, 20 MG PO AC MEALS AND BEDTIME 12/14/11 Methotrexate Sodium (Methotrexate) 2.5 Mg/Dose-Pack Tab.ds.pk, 2.5 MG PO DAILY 12/14/11 Aspirin Ec (Aspir 81) 81 Mg Tablet.dr, 81 MG PO DAILY 12/14/11 Discontinued Reported Medications [Hydralazine] No Conflict Check 05/03/16 [Metoprolol] No Conflict Check 05/03/16 [Escitalopram Oxalate] No Conflict Check 05/03/16 [Vascepa] No Conflict Check 05/03/16 [Vitamin D] No Conflict Check 05/03/16 [Folic Acid] No Conflict Check 05/03/16 Paroxetine Hcl* (Paroxetine*) 20 Mg Tablet, 20 MG PO DAILY 12/14/11 Losartan/Hydrochlorothiazide (Hyzaar 100-25 Tablet) 1 Tab Tablet, 1 TAB PO DAILY 12/14/11 Medications Current Medications Ciprofloxacin/ Dextrose 200 ml @ 200 mls/hr Q24H IVPB Last administered on 11/08/18at 02:51; Admin Dose 200 MLS/HR; Start 11/08/18 at 03:00; Status Hold Metronidazole 100 ml @ 100 mls/hr Q8 IVPB Last administered on 11/07/18at 22:15; Admin Dose 100 MLS/HR; Start 11/07/18 at 14:00; Status Hold Acetaminophen (Tylenol Tab) 650 mg Q6H PRN PO MILD PAIN(1-3)OR ELEVATED TEMP Last administered on 11/12/18 00:29; Admin Dose 650 MG; Start 11/07/18 at 10:00 Loperamide HCl (Imodium Cap) 2 mg QID PRN PO DIARRHEA Last administered on 11/09/18 02:45; Admin Dose 2 MG; Start 11/07/18 at 10:30 Amiodarone HCl (Cordarone) 100 mg DAILY PO Last administered on 11/12/18 08:54; Admin Dose 100 MG; Start 11/08/18 at 09:00 Apixaban (Eliquis) 2.5 mg BID PO Last administered on 11/12/18 08:53; Admin Dose 2.5 MG; Start 11/07/18 at 12:00 Cholecalciferol (Vitamin D) 2,000 unit DAILY PO Last administered on 11/12/18 08:52; Admin Dose 2,000 UNIT; Start 11/08/18 at 09:00 Donepezil HCl (Aricept) 10 mg DAILY PO Last administered on 11/12/18 08:53; Admin Dose 10 MG; Start 11/08/18 at 09:00 Escitalopram Oxalate (Lexapro) 20 mg DAILY PO Last administered on 11/12/18 08:53; Admin Dose 20 MG; Start 11/08/18 at 09:00 EZETIMIBE (Zetia) 10 mg DAILY PO Last administered on 11/12/18 08:52; Admin Dose 10 MG; Start 11/08/18 at 09:00 Folic Acid (Folic Acid) 1 mg DAILY PO Last administered on 11/12/18 08:52; Admin Dose 1 MG; Start 11/08/18 at 09:00 Pantoprazole (Protonix Tab) 40 mg DAILY@06 PO Last administered on 11/12/18 07:29; Admin Dose 40 MG; Start 11/08/18 at 06:00 Levothyroxine Sodium (Synthroid) 25 mcg DAILY@0600 PO Last administered on 11/12/18 07:29; Admin Dose 25 MCG; Start 11/08/18 at 06:30 Metoprolol Tartrate (Lopressor) 100 mg BID PO Last administered on 11/11/18 21:41; Admin Dose 100 MG; Start 11/08/18 at 21:00 Ondansetron HCl (Zofran Inj) 4 mg Q6H PRN IV NAUSEA AND/OR VOMITING Last administered on 11/12/18at 12:55; Admin Dose 4 MG; Start 11/08/18 at 10:30 Lorazepam (Ativan) 0.5 mg Q6H PRN PO ANXIETY Last administered on 11/11/18at 23:18; Admin Dose 0.5 MG; Start 11/09/18 at 00:00 Psyllium Hydrophilic Mucilloid (Metamucil) 1 pkt DAILY PO Last administered on 11/12/18at 08:54; Admin Dose 1 PKT; Start 11/10/18 at 09:00 Furosemide (Lasix) 20 mg BID DIURETICS IV ; Start 11/12/18 at 18:00 Ferrous Sulfate (Ferrous Sulfate (Ec)) 325 mg QHS PO ; Start 11/12/18 at 21:00 Allergies: Coded Allergies: ciprofloxacin (Verified Allergy, Severe, 11/08/18) No Known Drug Allergies (Unverified Allergy, Unknown, 11/07/18) metronidazole (Verified Allergy, Unknown, 11/08/18) Past Surgical History Past Surgical Hx: other (Status post PPM placement 2014, status post low back surgery in 2008 status post bilateral cataract surgery) Family History Significant Family History: no pertinent family hx Social History Alcohol Use: none Smoking Status: Never smoker Drug Use: none Exam/Review of Systems Exam Vitals Vital Signs Date Temp Pulse Resp B/P (MAP) Pulse Ox O2 O2 Flow FiO2 Time Delivery Rate 11/12/18 71 16:00 11/12/18 97.6 18 137/75 98 15:49 (95) 11/12/18 Room Air 00:00 Intake and Output 11/11/18 11/11/18 11/12/18 1515:00 23:00 07:00 IntakeIntake Total 250 ml OutputOutput Total 75 ml BalanceBalance 175 ml Constitutional: alert, oriented Psych: no complaints Head: normocephalic Eyes: nl conjunctiva ENMT: nl external ears & nose Neck: supple Respiratory: clear to auscultation Cardiovascular: regular rate and rhythm Gastrointestinal: soft Musculoskeletal: swelling Extremities: normal pulses Neurological: PERIANESTHESIA RN II-XII intact Results Result Diagram: 11/12/18 0501 11/12/18 0500 Results 24hrs Laboratory Tests Test 11/12/18 05:00 11/12/18 05:01 Prothrombin Time 26.3 H Prothrombin Time Ratio 2.1 INR International Normalized Ratio 2.41 Activated Partial Thromboplast Time 35.8 H Sodium Level 128 L Potassium Level 4.5 Chloride Level 98 Carbon Dioxide Level 20 L Anion Gap 10 Blood Urea Nitrogen 44 H Creatinine 2.19 H Est Glomerular Filtrat Rate mL/min Glucose Level 107 Calcium Level 7.5 L Magnesium Level 2.1 Total Bilirubin 0.8 Direct Bilirubin 0.00 Indirect Bilirubin 0.8 Aspartate Amino Transf (AST/SGOT) 124 H Alanine Aminotransferase (ALT/SGPT) 167 H Alkaline Phosphatase 126 H B-Type Natriuretic Peptide 3640 H Total Protein 5.4 L Albumin 2.8 L Globulin 2.60 Albumin/Globulin Ratio 1.07 White Blood Count 6.7 Red Blood Count 3.58 L Hemoglobin 11.9 L Hematocrit 34.9 L Mean Corpuscular Volume 97.5 Mean Corpuscular Hemoglobin 33.2 H Mean Corpuscular Hemoglobin Concent 34.1 Red Cell Distribution Width 20.0 H Platelet Count 107 L Mean Platelet Volume 11.4 H Immature Granulocytes % 0.500 H Neutrophils % 60.3 Lymphocytes % 28.3 Monocytes % 10.4 Eosinophils % 0.3 Basophils % 0.2 Nucleated Red Blood Cells % 2.3 H Immature Granulocytes # 0.030 Neutrophils # 4.0 Lymphocytes # 1.9 Monocytes # 0.7 Eosinophils # 0.0 Basophils # 0.0 Nucleated Red Blood Cells # 0.2 H Medications Medication Current Medications Ciprofloxacin/ Dextrose 200 ml @ 200 mls/hr Q24H IVPB Last administered on 11/08/18 02:51; Admin Dose 200 MLS/HR; Start 11/08/18 at 03:00; Status Hold Metronidazole 100 ml @ 100 mls/hr Q8 IVPB Last administered on 11/07/18 22:15; Admin Dose 100 MLS/HR; Start 11/07/18 at 14:00; Status Hold Acetaminophen (Tylenol Tab) 650 mg Q6H PRN PO MILD PAIN(1-3)OR ELEVATED TEMP Last administered on 11/12/18 00:29; Admin Dose 650 MG; Start 11/07/18 at 10:00 Loperamide HCl (Imodium Cap) 2 mg QID PRN PO DIARRHEA Last administered on 6/7/19at 02:45; Admin Dose 2 MG; Start 11/07/18 at 10:30 Amiodarone HCl (Cordarone) 100 mg DAILY PO Last administered on 11/12/18 08:54; Admin Dose 100 MG; Start 11/08/18 at 09:00 Apixaban (Eliquis) 2.5 mg BID PO Last administered on 11/12/18 08:53; Admin Dose 2.5 MG; Start 11/07/18 at 12:00 Cholecalciferol (Vitamin D) 2,000 unit DAILY PO Last administered on 11/12/18 08:52; Admin Dose 2,000 UNIT; Start 11/08/18 at 09:00 Donepezil HCl (Aricept) 10 mg DAILY PO Last administered on 11/12/18 08:53; Admin Dose 10 MG; Start 11/08/18 at 09:00 Escitalopram Oxalate (Lexapro) 20 mg DAILY PO Last administered on 11/12/18 08:53; Admin Dose 20 MG; Start 11/08/18 at 09:00 EZETIMIBE (Zetia) 10 mg DAILY PO Last administered on 11/12/18 08:52; Admin Dose 10 MG; Start 11/08/18 at 09:00 Folic Acid (Folic Acid) 1 mg DAILY PO Last administered on 11/12/18 08:52; Admin Dose 1 MG; Start 11/08/18 at 09:00 Pantoprazole (Protonix Tab) 40 mg DAILY@06 PO Last administered on 11/12/18 07:29; Admin Dose 40 MG; Start 11/08/18 at 06:00 Levothyroxine Sodium (Synthroid) 25 mcg DAILY@0600 PO Last administered on 11/12/18 07:29; Admin Dose 25 MCG; Start 11/08/18 at 06:30 Metoprolol Tartrate (Lopressor) 100 mg BID PO Last administered on 11/11/18 21:41; Admin Dose 100 MG; Start 11/08/18 at 21:00 Ondansetron HCl (Zofran Inj) 4 mg Q6H PRN IV NAUSEA AND/OR VOMITING Last administered on 11/12/18 12:55; Admin Dose 4 MG; Start 11/08/18 at 10:30 Lorazepam (Ativan) 0.5 mg Q6H PRN PO ANXIETY Last administered on 11/11/18at 23:18; Admin Dose 0.5 MG; Start 11/09/18 at 00:00 Psyllium Hydrophilic Mucilloid (Metamucil) 1 pkt DAILY PO Last administered on 11/12/18at 08:54; Admin Dose 1 PKT; Start 11/10/18 at 09:00 Furosemide (Lasix) 20 mg BID DIURETICS IV ; Start 11/12/18 at 18:00 Ferrous Sulfate (Ferrous Sulfate (Ec)) 325 mg QHS PO ; Start 11/12/18 at 21:00 CRISTIAN LEBLANC M.D. Nov 12, 2018 17:32
--- NOTE | 2018-11-12 17:39 | CONS ---
Assessment/Plan Assessment/Plan Assessment/Plan (Daily) Assessment/Plan (Daily) IMPRESSION: 1. Nausea, vomiting and diarrhea which have subsided now, most probably related to viral infection or of infectious etiology. 2. Atrial fibrillation for which she is on Eliquis. 3. Status post pacemaker insertion. 4. Dyslipidemia. 5. Hypothyroidism. 6. Hypertension. 7. Fatigue most probably related to depression 8. Pedal edema pitting all the way up to knee 9. Coagulopathy may be cirrhosis of liver is contributing. 10. Abnormal LFT, patient CAT scan shows nodular liver which may be due to cirrhosis and also steatosis is playing a role Plan Metamucil for constipation and incomplete evacuation Lexapro exercise upon discharge Bladder scan to make sure there is no bladder outlet obstruction. If there is no bladder outlet obstruction then patient may need more IV fluid since the creatinine is going up Judicious use of fluid and monitoring creatinine. We will send for hepatitis panel. Most probably has cirrhosis may be related to [place] Consultation Date/Type/Reason Admit Date/Time Nov 07, 2018 at 12:41 Initial Consult Date Requesting Provider: REJI KAUFFMAN MD Date/Time of Note DATE: 11/12/18 TIME: 17:38 24 HR Interval Summary Free Text/Dictation Patient has no abdominal pain no diarrhea. Family is concerned regarding the swelling of the both upper and lower extremities Exam/Review of Systems Exam Vitals Vital Signs Date Temp Pulse Resp B/P (MAP) Pulse Ox O2 O2 Flow FiO2 Time Delivery Rate 11/12/18 71 16:00 11/12/18 97.6 18 137/75 98 15:49 (95) 11/12/18 Room Air 00:00 Intake and Output 11/11/18 11/11/18 11/12/18 1515:00 23:00 07:00 IntakeIntake Total 250 ml OutputOutput Total 75 ml BalanceBalance 175 ml Constitutional: alert, oriented, well developed Respiratory: clear to auscultation Gastrointestinal: soft, nl liver, spleen, non-tender Extremities: pitting pedal edema Results Result Diagram: 11/12/18 0501 11/12/18 0500 Results 24hrs Laboratory Tests Test 11/12/18 05:00 11/12/18 05:01 Prothrombin Time 26.3 H Prothrombin Time Ratio 2.1 INR International Normalized Ratio 2.41 Activated Partial Thromboplast Time 35.8 H Sodium Level 128 L Potassium Level 4.5 Chloride Level 98 Carbon Dioxide Level 20 L Anion Gap 10 Blood Urea Nitrogen 44 H Creatinine 2.19 H Est Glomerular Filtrat Rate mL/min Glucose Level 107 Calcium Level 7.5 L Magnesium Level 2.1 Total Bilirubin 0.8 Direct Bilirubin 0.00 Indirect Bilirubin 0.8 Aspartate Amino Transf (AST/SGOT) 124 H Alanine Aminotransferase (ALT/SGPT) 167 H Alkaline Phosphatase 126 H B-Type Natriuretic Peptide 3640 H Total Protein 5.4 L Albumin 2.8 L Globulin 2.60 Albumin/Globulin Ratio 1.07 White Blood Count 6.7 Red Blood Count 3.58 L Hemoglobin 11.9 L Hematocrit 34.9 L Mean Corpuscular Volume 97.5 Mean Corpuscular Hemoglobin 33.2 H Mean Corpuscular Hemoglobin Concent 34.1 Red Cell Distribution Width 20.0 H Platelet Count 107 L Mean Platelet Volume 11.4 H Immature Granulocytes % 0.500 H Neutrophils % 60.3 Lymphocytes % 28.3 Monocytes % 10.4 Eosinophils % 0.3 Basophils % 0.2 Nucleated Red Blood Cells % 2.3 H Immature Granulocytes # 0.030 Neutrophils # 4.0 Lymphocytes # 1.9 Monocytes # 0.7 Eosinophils # 0.0 Basophils # 0.0 Nucleated Red Blood Cells # 0.2 H Medications Medication Current Medications Ciprofloxacin/ Dextrose 200 ml @ 200 mls/hr Q24H IVPB Last administered on 11/08/18 02:51; Admin Dose 200 MLS/HR; Start 11/08/18 at 03:00; Status Hold Metronidazole 100 ml @ 100 mls/hr Q8 IVPB Last administered on 11/07/18 22:15; Admin Dose 100 MLS/HR; Start 11/07/18 at 14:00; Status Hold Acetaminophen (Tylenol Tab) 650 mg Q6H PRN PO MILD PAIN(1-3)OR ELEVATED TEMP L ast administered on 11/12/18 00:29; Admin Dose 650 MG; Start 11/07/18 at 10:00 Loperamide HCl (Imodium Cap) 2 mg QID PRN PO DIARRHEA Last administered on 11/09/18 02:45; Admin Dose 2 MG; Start 11/07/18 at 10:30 Amiodarone HCl (Cordarone) 100 mg DAILY PO Last administered on 11/12/18 08:54; Admin Dose 100 MG; Start 11/08/18 at 09:00 Apixaban (Eliquis) 2.5 mg BID PO Last administered on 11/12/18 08:53; Admin Dose 2.5 MG; Start 11/07/18 at 12:00 Cholecalciferol (Vitamin D) 2,000 unit DAILY PO Last administered on 11/12/18 08:52; Admin Dose 2,000 UNIT; Start 11/08/18 at 09:00 Donepezil HCl (Aricept) 10 mg DAILY PO Last administered on 11/12/18 08:53; Admin Dose 10 MG; Start 11/08/18 at 09:00 Escitalopram Oxalate (Lexapro) 20 mg DAILY PO Last administered on 11/12/18 08:53; Admin Dose 20 MG; Start 11/08/18 at 09:00 EZETIMIBE (Zetia) 10 mg DAILY PO Last administered on 11/12/18 08:52; Admin Dose 10 MG; Start 11/08/18 at 09:00 Folic Acid (Folic Acid) 1 mg DAILY PO Last administered on 11/12/18 08:52; Admin Dose 1 MG; Start 11/08/18 at 09:00 Pantoprazole (Protonix Tab) 40 mg DAILY@06 PO Last administered on 11/12/18 07:29; Admin Dose 40 MG; Start 11/08/18 at 06:00 Levothyroxine Sodium (Synthroid) 25 mcg DAILY@0600 PO Last administered on 11/12/18 07:29; Admin Dose 25 MCG; Start 11/08/18 at 06:30 Metoprolol Tartrate (Lopressor) 100 mg BID PO Last administered on 11/11/18 21:41; Admin Dose 100 MG; Start 11/08/18 at 21:00 Ondansetron HCl (Zofran Inj) 4 mg Q6H PRN IV NAUSEA AND/OR VOMITING Last administered on 11/12/18 12:55; Admin Dose 4 MG; Start 11/08/18 at 10:30 Lorazepam (Ativan) 0.5 mg Q6H PRN PO ANXIETY Last administered on 11/11/18 23:18; Admin Dose 0.5 MG; Start 11/09/18 at 00:00 Psyllium Hydrophilic Mucilloid (Metamucil) 1 pkt DAILY PO Last administered on 11/12/18at 08:54; Admin Dose 1 PKT; Start 11/10/18 at 09:00 Furosemide (Lasix) 20 mg BID DIURETICS IV Last administered on 11/12/18at 17:30; Admin Dose 20 MG; Start 11/12/18 at 18:00 Ferrous Sulfate (Ferrous Sulfate (Ec)) 325 mg QHS PO ; Start 11/12/18 at 21:00 TONY SHETTY MD Nov 12, 2018 17:39
[2018-11-12] MEDS ORDERED: ALBUMIN HUMAN 25% 100 ML IV STA (18:39)
[2018-11-12] MEDS ORDERED: FUROSEMIDE 250 MG in DEXTROSE 5% 225 ML IV SCH (19:00)
[2018-11-12] MEDS ORDERED: BUMETANIDE 12 MG in DEXTROSE 5% 72 ML IV ONE (20:30)
[2018-11-12] MEDS: MEGESTROL (40 MG/ML) 10ML CUP PO SCH (21:04)
[2018-11-13] VITALS (13 sets, daily range): BP systolic 115–157; BP diastolic 57–89; PULSE 70–98; RESP 18–20
[2018-11-13] MEDS: PANTOPRAZOLE (EC) 40 MG TAB PO SCH (06:53)
[2018-11-13] MEDS: LEVOTHYROXINE 25 MCG TAB PO SCH (06:53)
[2018-11-13] MEDS: FUROSEMIDE 20 MG INJ IV SCH ×2 (06:54→17:16)
[2018-11-13] MEDS: MEGESTROL (40 MG/ML) 10ML CUP PO SCH ×2 (10:10→20:22)
[2018-11-13] MEDS: DONEPEZIL 10 MG TAB PO SCH (10:11)
[2018-11-13] MEDS: EZETIMIBE 10 MG TAB PO SCH (10:11)
[2018-11-13] MEDS: ESCITALOPRAM 10 MG TAB PO SCH (10:11)
[2018-11-13] MEDS: PSYLLIUM 28% PACKET PO SCH (10:12)
[2018-11-13] MEDS: FOLIC ACID 1 MG TAB PO SCH (10:12)
[2018-11-13] MEDS: METOPROLOL 100 MG TAB PO SCH ×2 (10:12→20:54)
[2018-11-13] MEDS: APIXABAN 5 MG TABLET PO SCH ×2 (10:12→20:22)
[2018-11-13] MEDS: AMIODARONE 200 MG TAB PO SCH (10:12)
[2018-11-13] MEDS: CHOLECALCIFEROL 2,000 UNIT CAP PO SCH (10:12)
--- NOTE | 2018-11-13 10:36 | CONS ---
Assessment/Plan Assessment/Plan Hospital Course (Demo Recall) #Coagulopathy -pt is noted to have an elevated PT (26sec) and PTT(35 sec). Today patient;s PTT is within normal limits. PT mixing study corrected. This essentially rules out a factor inhibitor. This makes the most likely cause of her coagulopathy her underlying cirrhosis and Vitamin K deficiency -will start oral Vitamin K 5mg po x 3 days -I do think eliquis can be continued at this time, even though the INR is 2.1, since the INR may fluctuate with his every day diet. Moreover, pt is not bl eeding with his elevated INR ane eliquis so I believe this can be continued. #Colitis -GI consulted -continue Levaquin and Flagyl #JACKELIN on CKD -pt getting fluids per osito #CHF -diuresis on hold for JACKELIN #Afib -may continue eliquis as mentioned above #HTN -continue current BP meds #RA -on remicaid as an out patient Thank you for the opportunity to participate in this patients care A total of 40 minutes of face to face time was spent speaking with the patient, of which greater than 50% was spent in counseling and coordination of care and the detailed question and answer session. Consultation Date/Type/Reason Admit Date/Time Nov 07, 2018 at 12:41 Initial Consult Date 11/12/18 Type of Consult hematology Reason for Consultation coagulopathy Requesting Provider: REJI KAUFFMAN MD Date/Time of Note DATE: 11/13/18 TIME: 10:27 24 HR Interval Summary Free Text/Dictation no bleeding overnight. pt is on Eliquis. started on Lasix drip. pt urinating well Exam/Review of Systems Exam Vitals Vital Signs Date Temp Pulse Resp B/P (MAP) Pulse Ox O2 O2 Flow FiO2 Time Delivery Rate 11/13/18 96 08:06 11/13/18 98.5 20 141/60 100 Nasal 07:25 (87) Cannula Intake and Output 11/12/18 11/12/18 11/13/18 1515:00 23:00 07:00 IntakeIntake Total 700 ml 250 ml OutputOutput Total 400 ml 2500 ml BalanceBalance 300 ml -2250 ml Constitutional: alert Psych: no complaints Head: normocephalic Eyes: nl conjunctiva ENMT: nl external ears & nose Neck: supple Respiratory: clear to auscultation Cardiovascular: regular rate and rhythm Gastrointestinal: soft Musculoskeletal: nl extremities to inspection Extremities: pitting pedal edema Results Result Diagram: 11/13/18 0517 11/13/18 0518 Results 24hrs Laboratory Tests Test 11/12/18 18:31 11/13/18 05:00 11/13/18 05:15 11/13/18 05:17 Prothrombin Time 22.8 H 24.2 H Activated 30.3 34.7 Partial Thrombopl ast Time Mix PT Patient 16.1 Plasma Immediate PT Mixing Studies Interpret ation Mix PTT Normal Plasma Immediate Blood Gas Blood arterial Specimen Source Arterial Blood 11/13/2018 5:05:4 Date Drawn 3 AM Arterial Blood pH 7.424 (Temp corrected) Arterial Blood 34.4 L pCO2 (Temp correct) Arterial Blood 100.1 H pO2 (Temp corrected) Arterial Blood 22.0 HCO3 Arterial Blood -1.7 Base Excess Arterial Blood 97.2 Oxygen Saturation Jerad Test ACCEPTAB Arterial Blood Right Radial Gas Puncture Site Arterial 0.5 Blood Carboxyhemo globin Arterial Blood 0.2 Methemoglobin Blood Gas A-a O2 51.7 H Differential Oxyhemoglobin 96.5 Percent Blood Gas 37.0 Temperature Blood Gas NASAL CANNULA Modality FiO2 27.0 Blood Gas Jocelynn [facility] Notified Whom Blood Gas 11/13/2018 5:21:2 Notified Time 6 AM Hepatitis B NEGATIVE Surface Antigen Hepatitis B Core NEGATIVE Total Antibody Hepatitis C NEGATIVE Antibody White Blood Count 7.8 Red Blood Count 3.78 L Hemoglobin 12.4 Hematocrit 36.5 L Mean Corpuscular 96.6 Volume Mean Corpuscular 32.8 Hemoglobin Mean Corpuscular 34.0 Hemoglobin Concen t Red Cell 20.7 H Distribution Width Platelet Count 117 L Mean Platelet 11.1 H Volume Immature 0.300 Granulocytes % Neutrophils % 67.4 Lymphocytes % 20.5 Monocytes % 11.3 H Eosinophils % 0.4 Basophils % 0.1 Nucleated Red 1.0 H Blood Cells % Immature 0.020 Granulocytes # Neutrophils # 5.3 Lymphocytes # 1.6 Monocytes # 0.9 Eosinophils # 0.0 Basophils # 0.0 Nucleated Red 0.1 H Blood Cells # Prothrombin Time 1.9 Ratio INR International 2.16 Normalized Ratio Test 11/13/18 05:18 Sodium Level 131 L Potassium Level 3.5 Chloride Level 96 L Carbon Dioxide 26 Level Anion Gap 9 Blood Urea 41 H Nitrogen Creatinine 1.95 H Est Glomerular Filtrat Rate mL/min Glucose Level 95 Calcium Level 8.1 L Total Bilirubin 1.0 Direct Bilirubin 0.00 Indirect 1.0 Bilirubin Aspartate Amino 212 H Transf (AST/SGOT) Alanine 239 H Aminotransferase (ALT/SGPT) Alkaline 153 H Phosphatase B-Type 4150 H Natriuretic Peptide Total Protein 5.9 L Albumin 3.4 Globulin 2.50 Albumin/Globulin 1.36 Ratio Medications Medication Current Medications Ciprofloxacin/ Dextrose 200 ml @ 200 mls/hr Q24H IVPB Last administered on 11/08/18 02:51; Admin Dose 200 MLS/HR; Start 11/08/18 at 03:00; Status Hold Metronidazole 100 ml @ 100 mls/hr Q8 IVPB Last administered on 11/07/18 22:15; Admin Dose 100 MLS/HR; Start 11/07/18 at 14:00; Status Hold Acetaminophen (Tylenol Tab) 650 mg Q6H PRN PO MILD PAIN(1-3)OR ELEVATED TEMP Last administered on 11/12/18 00:29; Admin Dose 650 MG; Start 11/07/18 at 10:00 Loperamide HCl (Imodium Cap) 2 mg QID PRN PO DIARRHEA Last administered on 11/09/18 02:45; Admin Dose 2 MG; Start 11/07/18 at 10:30 Amiodarone HCl (Cordarone) 100 mg DAILY PO Last administered on 11/13/18 10:12; Admin Dose 100 MG; Start 11/08/18 at 09:00 Apixaban (Eliquis) 2.5 mg BID PO Last administered on 11/13/18 10:12; Admin Dose 2.5 MG; Start 11/07/18 at 12:00 Cholecalciferol (Vitamin D) 2,000 unit DAILY PO Last administered on 11/13/18 10:12; Admin Dose 2,000 UNIT; Start 11/08/18 at 09:00 Donepezil HCl (Aricept) 10 mg DAILY PO Last administered on 11/13/18 10:11; Admin Dose 10 MG; Start 11/08/18 at 09:00 Escitalopram Oxalate (Lexapro) 20 mg DAILY PO Last administered on 11/13/18 1 0:11; Admin Dose 20 MG; Start 11/08/18 at 09:00 EZETIMIBE (Zetia) 10 mg DAILY PO Last administered on 11/13/18 10:11; Admin Dose 10 MG; Start 11/08/18 at 09:00 Folic Acid (Folic Acid) 1 mg DAILY PO Last administered on 11/13/18 10:12; Admin Dose 1 MG; Start 11/08/18 at 09:00 Pantoprazole (Protonix Tab) 40 mg DAILY@06 PO Last administered on 11/13/18 06:53; Admin Dose 40 MG; Start 11/08/18 at 06:00 Levothyroxine Sodium (Synthroid) 25 mcg DAILY@0600 PO Last administered on 11/13/18 06:53; Admin Dose 25 MCG; Start 11/08/18 at 06:30 Metoprolol Tartrate (Lopressor) 100 mg BID PO Last administered on 11/13/18 10:12; Admin Dose 100 MG; Start 11/08/18 at 21:00 Ondansetron HCl (Zofran Inj) 4 mg Q6H PRN IV NAUSEA AND/OR VOMITING Last administered on 11/12/18 12:55; Admin Dose 4 MG; Start 11/08/18 at 10:30 Lorazepam (Ativan) 0.5 mg Q6H PRN PO ANXIETY Last administered on 11/11/18 23:18; Admin Dose 0.5 MG; Start 11/09/18 at 00:00 Psyllium Hydrophilic Mucilloid (Metamucil) 1 pkt DAILY PO Last administered on 11/13/18 10:12; Admin Dose 1 PKT; Start 11/10/18 at 09:00 Furosemide (Lasix) 20 mg BID DIURETICS IV Last administered on 11/13/18 06:54; Admin Dose 20 MG; Start 11/12/18 at 18:00 Ferrous Sulfate (Ferrous Sulfate (Ec)) 325 mg QHS PO Last administered on 11/12/18 21:03; Admin Dose 325 MG; Start 11/12/18 at 21:00 Megestrol Acetate (Megace Susp) 400 mg BID PO Last administered on 11/13/18 10:10; Admin Dose 400 MG; Start 11/12/18 at 21:00 CRISTIAN LEBLANC M.D. Nov 13, 2018 10:36
--- NOTE | 2018-11-13 15:35 | PN ---
Date/Time of Note Date/Time of Note DATE: 11/13/18 TIME: 15:31 Assessment/Plan VTE Prophylaxis Risk score (from Ns)>0 risk: 7 SCD applied (from Ns): Yes Pharmacological prophylaxis: apixaban Lines/Catheters IV Catheter Type (from Nrs): Mid Line Central line still needed: Yes Urinary Cath still in place: Yes Reason Cath still needed: urinary retention Assessment/Plan Hospital Course Patient is currently on Lasix drip, good urine output, slightly decreased edema, chest x-ray from today noted, continue to monitor electrolytes. Patient complains of left foot pain and redness, will obtain foot x-ray. Heart rate is controlled. Assessment/Plan -Coagulopathy most likely to liver cirrhosis and vitamin K deficiency. Dr. Ramsay is following in hematology consultation. -Atrial fibrillation with initially rapid ventricular rates, improved. continue Eliquis and metoprolol. Dr Mayers is following in cardiology consultation. -Nausea vomiting and diarrhea for 2 days. f/up on stool for C. difficile, ova and parasites. Dr. Merchant is following in gastroenterology consultation. -Colitis per CT scan. S/p Levaquin and Flagyl. -CHF, continue Lasix -Hypertension, continue metoprolol Norvasc and Cozaar -PPM -Hypothyroidism -Rheumatoid arthritis Further recommendations based on clinical course. Plan of care discussed with Dr. Rayo. Result Diagram: 11/13/18 0517 11/13/18 0518 Results 24hrs Laboratory Tests Test 11/12/18 18:31 11/13/18 05:00 11/13/18 05:15 11/13/18 05:17 Prothrombin Time 22.8 H 24.2 H Activated 30.3 34.7 Partial Thrombopl ast Time Mix PT Patient 16.1 Plasma Immediate PT Mixing Studies Interpret ation Mix PTT Normal Plasma Immediate Blood Gas Blood arterial Specimen Source Arterial Blood 11/13/2018 5:05:4 Date Drawn 3 AM Arterial Blood pH 7.424 (Temp corrected) Arterial Blood 34.4 L pCO2 (Temp correct) Arterial Blood 100.1 H pO2 (Temp corrected) Arterial Blood 22.0 HCO3 Arterial Blood -1.7 Base Excess Arterial Blood 97.2 Oxygen Saturation Jerad Test ACCEPTAB Arterial Blood Right Radial Gas Puncture Site Arterial 0.5 Blood Carboxyhemo globin Arterial Blood 0.2 Methemoglobin Blood Gas A-a O2 51.7 H Differential Oxyhemoglobin 96.5 Percent Blood Gas 37.0 Temperature Blood Gas NASAL CANNULA Modality FiO2 27.0 Blood Gas Henrik Cabezas [facility] Notified Whom Blood Gas 11/13/2018 5:21:2 Notified Time 6 AM Hepatitis B NEGATIVE Surface Antigen Hepatitis B Core NEGATIVE Total Antibody Hepatitis C NEGATIVE Antibody White Blood Count 7.8 Red Blood Count 3.78 L Hemoglobin 12.4 Hematocrit 36.5 L Mean Corpuscular 96.6 Volume Mean Corpuscular 32.8 Hemoglobin Mean Corpuscular 34.0 Hemoglobin Concen t Red Cell 20.7 H Distribution Width Platelet Count 117 L Mean Platelet 11.1 H Volume Immature 0.300 Granulocytes % Neutrophils % 67.4 Lymphocytes % 20.5 Monocytes % 11.3 H Eosinophils % 0.4 Basophils % 0.1 Nucleated Red 1.0 H Blood Cells % Immature 0.020 Granulocytes # Neutrophils # 5.3 Lymphocytes # 1.6 Monocytes # 0.9 Eosinophils # 0.0 Basophils # 0.0 Nucleated Red 0.1 H Blood Cells # Prothrombin Time 1.9 Ratio INR International 2.16 Normalized Ratio Test 11/13/18 05:18 Sodium Level 131 L Potassium Level 3.5 Chloride Level 96 L Carbon Dioxide 26 Level Anion Gap 9 Blood Urea 41 H Nitrogen Creatinine 1.95 H Est Glomerular Filtrat Rate mL/min Glucose Level 95 Calcium Level 8.1 L Total Bilirubin 1.0 Direct Bilirubin 0.00 Indirect 1.0 Bilirubin Aspartate Amino 212 H Transf (AST/SGOT) Alanine 239 H Aminotransferase (ALT/SGPT) Alkaline 153 H Phosphatase B-Type 4150 H Natriuretic Peptide Total Protein 5.9 L Albumin 3.4 Globulin 2.50 Albumin/Globulin 1.36 Ratio Exam/Review of Systems Exam Vitals Vital Signs Date Temp Pulse Resp B/P (MAP) Pulse Ox O2 O2 Flow FiO2 Time Delivery Rate 11/13/18 89 12:10 11/13/18 97.7 20 136/89 97 Nasal 11:47 (105) Cannula Intake and Output 11/12/18 11/12/18 11/13/18 1515:00 23:00 07:00 IntakeIntake Total 700 ml 250 ml OutputOutput Total 400 ml 2500 ml BalanceBalance 300 ml -2250 ml Exam Constitutional: alert, oriented Respiratory: clear to auscultation Cardiovascular: irregular rhythm, other (L chest PPM) Gastrointestinal: soft, non-tender Musculoskeletal: nl extremities to inspection Extremities: normal pulses Neurological: nl mental status Results Results 24hrs Laboratory Tests Test 11/12/18 18:31 11/13/18 05:00 11/13/18 05:15 11/13/18 05:17 Prothrombin Time 22.8 H 24.2 H Activated 30.3 34.7 Partial Thrombopl ast Time Mix PT Patient 16.1 Plasma Immediate PT Mixing Studies Interpret ation Mix PTT Normal Plasma Immediate Blood Gas Blood arterial Specimen Source Arterial Blood 11/13/2018 5:05:4 Date Drawn 3 AM Arterial Blood pH 7.424 (Temp corrected) Arterial Blood 34.4 L pCO2 (Temp correct) Arterial Blood 100.1 H pO2 (Temp corrected) Arterial Blood 22.0 HCO3 Arterial Blood -1.7 Base Excess Arterial Blood 97.2 Oxygen Saturation Jerad Test ACCEPTAB Arterial Blood Right Radial Gas Puncture Site Arterial 0.5 Blood Carboxyhemo globin Arterial Blood 0.2 Methemoglobin Blood Gas A-a O2 51.7 H Differential Oxyhemoglobin 96.5 Percent Blood Gas 37.0 Temperature Blood Gas NASAL CANNULA Modality FiO2 27.0 Blood Gas Henrik Cabezas [facility] Notified Whom Blood Gas 11/13/2018 5:21:2 Notified Time 6 AM Hepatitis B NEGATIVE Surface Antigen Hepatitis B Core NEGATIVE Total Antibody Hepatitis C NEGATIVE Antibody White Blood Count 7.8 Red Blood Count 3.78 L Hemoglobin 12.4 Hematocrit 36.5 L Mean Corpuscular 96.6 Volume Mean Corpuscular 32.8 Hemoglobin Mean Corpuscular 34.0 Hemoglobin Concen t Red Cell 20.7 H Distribution Width Platelet Count 117 L Mean Platelet 11.1 H Volume Immature 0.300 Granulocytes % Neutrophils % 67.4 Lymphocytes % 20.5 Monocytes % 11.3 H Eosinophils % 0.4 Basophils % 0.1 Nucleated Red 1.0 H Blood Cells % Immature 0.020 Granulocytes # Neutrophils # 5.3 Lymphocytes # 1.6 Monocytes # 0.9 Eosinophils # 0.0 Basophils # 0.0 Nucleated Red 0.1 H Blood Cells # Prothrombin Time 1.9 Ratio INR International 2.16 Normalized Ratio Test 11/13/18 05:18 Sodium Level 131 L Potassium Level 3.5 Chloride Level 96 L Carbon Dioxide 26 Level Anion Gap 9 Blood Urea 41 H Nitrogen Creatinine 1.95 H Est Glomerular Filtrat Rate mL/min Glucose Level 95 Calcium Level 8.1 L Total Bilirubin 1.0 Direct Bilirubin 0.00 Indirect 1.0 Bilirubin Aspartate Amino 212 H Transf (AST/SGOT) Alanine 239 H Aminotransferase (ALT/SGPT) Alkaline 153 H Phosphatase B-Type 4150 H Natriuretic Peptide Total Protein 5.9 L Albumin 3.4 Globulin 2.50 Albumin/Globulin 1.36 Ratio Medications Medication Current Medications Ciprofloxacin/ Dextrose 200 ml @ 200 mls/hr Q24H IVPB Last administered on 11/08/18 02:51; Admin Dose 200 MLS/HR; Start 11/08/18 at 03:00; Status Hold Metronidazole 100 ml @ 100 mls/hr Q8 IVPB Last administered on 11/07/18 22:15; Admin Dose 100 MLS/HR; Start 11/07/18 at 14:00; Status Hold Acetaminophen (Tylenol Tab) 650 mg Q6H PRN PO MILD PAIN(1-3)OR ELEVATED TEMP L ast administered on 11/12/18 00:29; Admin Dose 650 MG; Start 11/07/18 at 10:00 Loperamide HCl (Imodium Cap) 2 mg QID PRN PO DIARRHEA Last administered on 11/09/18 02:45; Admin Dose 2 MG; Start 11/07/18 at 10:30 Amiodarone HCl (Cordarone) 100 mg DAILY PO Last administered on 11/13/18 10:12; Admin Dose 100 MG; Start 11/08/18 at 09:00 Apixaban (Eliquis) 2.5 mg BID PO Last administered on 11/13/18 10:12; Admin Dose 2.5 MG; Start 11/07/18 at 12:00 Cholecalciferol (Vitamin D) 2,000 unit DAILY PO Last administered on 11/13/18 10:12; Admin Dose 2,000 UNIT; Start 11/08/18 at 09:00 Donepezil HCl (Aricept) 10 mg DAILY PO Last administered on 11/13/18 10:11; Admin Dose 10 MG; Start 11/08/18 at 09:00 Escitalopram Oxalate (Lexapro) 20 mg DAILY PO Last administered on 11/13/18 10:11; Admin Dose 20 MG; Start 11/08/18 at 09:00 EZETIMIBE (Zetia) 10 mg DAILY PO Last administered on 11/13/18 10:11; Admin Dose 10 MG; Start 11/08/18 at 09:00 Folic Acid (Folic Acid) 1 mg DAILY PO Last administered on 11/13/18 10:12; Admin Dose 1 MG; Start 11/08/18 at 09:00 Pantoprazole (Protonix Tab) 40 mg DAILY@06 PO Last administered on 11/13/18 06:53; Admin Dose 40 MG; Start 11/08/18 at 06:00 Levothyroxine Sodium (Synthroid) 25 mcg DAILY@0600 PO Last administered on 11/13/18 06:53; Admin Dose 25 MCG; Start 11/08/18 at 06:30 Metoprolol Tartrate (Lopressor) 100 mg BID PO Last administered on 11/13/18 10:12; Admin Dose 100 MG; Start 11/08/18 at 21:00 Ondansetron HCl (Zofran Inj) 4 mg Q6H PRN IV NAUSEA AND/OR VOMITING Last administered on 11/12/18 12:55; Admin Dose 4 MG; Start 11/08/18 at 10:30 Lorazepam (Ativan) 0.5 mg Q6H PRN PO ANXIETY Last administered on 11/11/18 23:18; Admin Dose 0.5 MG; Start 11/09/18 at 00:00 Psyllium Hydrophilic Mucilloid (Metamucil) 1 pkt DAILY PO Last administered on 11/13/18 10:12; Admin Dose 1 PKT; Start 11/10/18 at 09:00 Furosemide (Lasix) 20 mg BID DIURETICS IV Last administered on 11/13/18 06:54; Admin Dose 20 MG; Start 11/12/18 at 18:00 Ferrous Sulfate (Ferrous Sulfate (Ec)) 325 mg QHS PO Last administered on 11/12/18 21:03; Admin Dose 325 MG; Start 11/12/18 at 21:00 Megestrol Acetate (Megace Susp) 400 mg BID PO Last administered on 11/13/18 10:10; Admin Dose 400 MG; Start 11/12/18 at 21:00 Phytonadione (Vitamin K) 5 mg DAILY PO ; Start 11/14/18 at 09:00; Stop 11/16/18 at 09:01 OSCAR GAYTAN Nov 13, 2018 15:35
--- NOTE | 2018-11-13 16:13 | CONS ---
Assessment/Plan Cardiology NYHA: III Heart Failure Type: Acute on Chronic Heart Failure Type: Both Assessment/Plan Hospital Course (Demo Recall) Atrial fibrillation with initially rapid ventricular rates, improved Nausea, vomiting Acute decompensated systolic and diastolic congestive heart failure Acute kidney injury Mitral and tricuspid valve regurgitation Possible colitis Hypertension Dyslipidemia History of pacemaker Heart rate trend overall stable Renal function improving Diuretics as per nephrology Consultation Date/Type/Reason Admit Date/Time Nov 07, 2018 at 12:41 Initial Consult Date Type of Consult Cardiology Requesting Provider: REJI KAUFFMAN MD Date/Time of Note DATE: 11/13/18 TIME: 16:02 24 HR Interval Summary Free Text/Dictation Denies shortness of breath, chest pain, palpitations Exam/Review of Systems Vital Signs Vitals Vital Signs Date Temp Pulse Resp B/P (MAP) Pulse Ox O2 O2 Flow FiO2 Time Delivery Rate 11/13/18 97.8 98 20 136/72 100 Mechanical 15:55 (93) Ventilator Nasal Cannula Intake and Output 11/12/18 11/12/18 11/13/18 1515:00 23:00 07:00 IntakeIntake Total 700 ml 250 ml OutputOutput Total 400 ml 2500 ml BalanceBalance 300 ml -2250 ml Exam Constitutional: alert, oriented (No apparent distress) Respiratory: other (Coarse breath sounds, no wheezing) Cardiovascular: regular rate and rhythm (Occasional irregularities) Gastrointestinal: soft, non-tender, bowel sounds Extremities: other (Trace edema) Labs Result Diagram: 11/13/18 0517 11/13/18 0518 Results 24hrs Laboratory Tests Test 11/12/18 18:31 11/13/18 05:00 11/13/18 05:15 11/13/18 05:17 Prothrombin Time 22.8 H 24.2 H Activated 30.3 34.7 Partial Thrombopl ast Time Mix PT Patient 16.1 Plasma Immediate PT Mixing Studies Interpret ation Mix PTT Normal Plasma Immediate Blood Gas Blood arterial Specimen Source Arterial Blood 11/13/2018 5:05:4 Date Drawn 3 AM Arterial Blood pH 7.424 (Temp corrected) Arterial Blood 34.4 L pCO2 (Temp correct) Arterial Blood 100.1 H pO2 (Temp corrected) Arterial Blood 22.0 HCO3 Arterial Blood -1.7 Base Excess Arterial Blood 97.2 Oxygen Saturation Jerad Test ACCEPTAB Arterial Blood Right Radial Gas Puncture Site Arterial 0.5 Blood Carboxyhemo globin Arterial Blood 0.2 Methemoglobin Blood Gas A-a O2 51.7 H Differential Oxyhemoglobin 96.5 Percent Blood Gas 37.0 Temperature Blood Gas NASAL CANNULA Modality FiO2 27.0 Blood Gas Henrik Cabezas [employer] Notified Whom Blood Gas 11/13/2018 5:21:2 Notified Time 6 AM Hepatitis B NEGATIVE Surface Antigen Hepatitis B Core NEGATIVE Total Antibody Hepatitis C NEGATIVE Antibody White Blood Count 7.8 Red Blood Count 3.78 L Hemoglobin 12.4 Hematocrit 36.5 L Mean Corpuscular 96.6 Volume Mean Corpuscular 32.8 Hemoglobin Mean Corpuscular 34.0 Hemoglobin Concen t Red Cell 20.7 H Distribution Width Platelet Count 117 L Mean Platelet 11.1 H Volume Immature 0.300 Granulocytes % Neutrophils % 67.4 Lymphocytes % 20.5 Monocytes % 11.3 H Eosinophils % 0.4 Basophils % 0.1 Nucleated Red 1.0 H Blood Cells % Immature 0.020 Granulocytes # Neutrophils # 5.3 Lymphocytes # 1.6 Monocytes # 0.9 Eosinophils # 0.0 Basophils # 0.0 Nucleated Red 0.1 H Blood Cells # Prothrombin Time 1.9 Ratio INR International 2.16 Normalized Ratio Test 11/13/18 05:18 Sodium Level 131 L Potassium Level 3.5 Chloride Level 96 L Carbon Dioxide 26 Level Anion Gap 9 Blood Urea 41 H Nitrogen Creatinine 1.95 H Est Glomerular Filtrat Rate mL/min Glucose Level 95 Calcium Level 8.1 L Total Bilirubin 1.0 Direct Bilirubin 0.00 Indirect 1.0 Bilirubin Aspartate Amino 212 H Transf (AST/SGOT) Alanine 239 H Aminotransferase (ALT/SGPT) Alkaline 153 H Phosphatase B-Type 4150 H Natriuretic Peptide Total Protein 5.9 L Albumin 3.4 Globulin 2.50 Albumin/Globulin 1.36 Ratio Medications Medications Current Medications Ciprofloxacin/ Dextrose 200 ml @ 200 mls/hr Q24H IVPB Last administered on 11/08/18at 02:51; Admin Dose 200 MLS/HR; Start 11/08/18 at 03:00; Status Hold Metronidazole 100 ml @ 100 mls/hr Q8 IVPB Last administered on 11/07/18at 22:15; Admin Dose 100 MLS/HR; Start 11/07/18 at 14:00; Status Hold Acetaminophen (Tylenol Tab) 650 mg Q6H PRN PO MILD PAIN(1-3)OR ELEVATED TEMP Last administered on 11/12/18 00:29; Admin Dose 650 MG; Start 11/07/18 at 10:00 Loperamide HCl (Imodium Cap) 2 mg QID PRN PO DIARRHEA Last administered on 11/09/18 02:45; Admin Dose 2 MG; Start 11/07/18 at 10:30 Amiodarone HCl (Cordarone) 100 mg DAILY PO Last administered on 11/13/18 10:12; Admin Dose 100 MG; Start 11/08/18 at 09:00 Apixaban (Eliquis) 2.5 mg BID PO Last administered on 11/13/18 10:12; Admin Dose 2.5 MG; Start 11/07/18 at 12:00 Cholecalciferol (Vitamin D) 2,000 unit DAILY PO Last administered on 11/13/18 10:12; Admin Dose 2,000 UNIT; Start 11/08/18 at 09:00 Donepezil HCl (Aricept) 10 mg DAILY PO Last administered on 11/13/18 10:11; Admin Dose 10 MG; Start 11/08/18 at 09:00 Escitalopram Oxalate (Lexapro) 20 mg DAILY PO Last administered on 11/13/18 10:11; Admin Dose 20 MG; Start 11/08/18 at 09:00 EZETIMIBE (Zetia) 10 mg DAILY PO Last administered on 11/13/18 10:11; Admin Dose 10 MG; Start 11/08/18 at 09:00 Folic Acid (Folic Acid) 1 mg DAILY PO Last administered on 11/13/18 10:12; Admin Dose 1 MG; Start 11/08/18 at 09:00 Pantoprazole (Protonix Tab) 40 mg DAILY@06 PO Last administered on 11/13/18 06:53; Admin Dose 40 MG; Start 11/08/18 at 06:00 Levothyroxine Sodium (Synthroid) 25 mcg DAILY@0600 PO Last administered on 11/13/18 06:53; Admin Dose 25 MCG; Start 11/08/18 at 06:30 Metoprolol Tartrate (Lopressor) 100 mg BID PO Last administered on 11/13/18 10:12; Admin Dose 100 MG; Start 11/08/18 at 21:00 Ondansetron HCl (Zofran Inj) 4 mg Q6H PRN IV NAUSEA AND/OR VOMITING Last administered on 11/12/18 12:55; Admin Dose 4 MG; Start 11/08/18 at 10:30 Lorazepam (Ativan) 0.5 mg Q6H PRN PO ANXIETY Last administered on 11/11/18 23:18; Admin Dose 0.5 MG; Start 11/09/18 at 00:00 Psyllium Hydrophilic Mucilloid (Metamucil) 1 pkt DAILY PO Last administered on 11/13/18 10:12; Admin Dose 1 PKT; Start 11/10/18 at 09:00 Furosemide (Lasix) 20 mg BID DIURETICS IV Last administered on 11/13/18 06:54; Admin Dose 20 MG; Start 11/12/18 at 18:00 Ferrous Sulfate (Ferrous Sulfate (Ec)) 325 mg QHS PO Last administered on 11/12/18 21:03; Admin Dose 325 MG; Start 11/12/18 at 21:00 Megestrol Acetate (Megace Susp) 400 mg BID PO Last administered on 11/13/18 10 :10; Admin Dose 400 MG; Start 11/12/18 at 21:00 Phytonadione (Vitamin K) 5 mg DAILY PO ; Start 11/14/18 at 09:00; Stop 11/16/18 at 09:01 Perico Mayers DO Nov 13, 2018 16:12
--- NOTE | 2018-11-13 17:40 | CONS ---
Assessment/Plan Assessment/Plan Assessment/Plan (Daily) Assessment/Plan Assessment/Plan Assessment/Plan (Daily) Assessment/Plan (Daily) IMPRESSION: 1. Nausea, vomiting and diarrhea which have subsided now, most probably related to viral infection or of infectious etiology. 2. Atrial fibrillation for which she is on Eliquis. 3. Status post pacemaker insertion. 4. Dyslipidemia. 5. Hypothyroidism. 6. Hypertension. 7. Fatigue most probably related to depression 8. Pedal edema pitting all the way up to knee, has reduced her drastically responded well to diuretics. Patient urine output was thousand 900 cc 9. Coagulopathy may be cirrhosis of liver is contributing. 10. Abnormal LFT, patient CAT scan shows nodular liver which may be due to cirrhosis and also steatosis is playing a role Plan Metamucil for constipation and incomplete evacuation Lexapro exercise upon discharge Bladder scan to make sure there is no bladder outlet obstruction. If there is no bladder outlet obstruction then patient may need more IV fluid since the creatinine is going up Judicious use of fluid and monitoring creatinine. We will send for hepatitis panel. Most probably has cirrhosis may be related to [place] Continue present care discussed with the daughter will do EGD and: Once he is more stable Consultation Date/Type/Reason Admit Date/Time Nov 07, 2018 at 12:41 Initial Consult Date Requesting Provider: REJI KAUFFMAN MD Date/Time of Note DATE: 11/13/18 TIME: 17:39 24 HR Interval Summary Free Text/Dictation Poor appetite as per the family Excessive salivation Good diuresis Exam/Review of Systems Exam Vitals Vital Signs Date Temp Pulse Resp B/P (MAP) Pulse Ox O2 O2 Flow FiO2 Time Delivery Rate 11/13/18 86 16:12 11/13/18 97.8 20 136/72 100 Mechanical 15:55 (93) Ventilator Nasal Cannula Intake and Output 11/12/18 11/12/18 11/13/18 1515:00 23:00 07:00 IntakeIntake Total 700 ml 250 ml OutputOutput Total 400 ml 2500 ml BalanceBalance 300 ml -2250 ml Constitutional: alert, oriented Respiratory: clear to auscultation, normal air movement Cardiovascular: regular rate and rhythm Extremities: pitting pedal edema Results Result Diagram: 11/13/18 0517 11/13/18 0518 Results 24hrs Laboratory Tests Test 6/10/19 18:31 11/13/18 05:00 11/13/18 05:15 11/13/18 05:17 Prothrombin Time 22.8 H 24.2 H Activated 30.3 34.7 Partial Thrombopl ast Time Mix PT Patient 16.1 Plasma Immediate PT Mixing Studies Interpret ation Mix PTT Normal Plasma Immediate Blood Gas Blood arterial Specimen Source Arterial Blood 11/13/2018 5:05:4 Date Drawn 3 AM Arterial Blood pH 7.424 (Temp corrected) Arterial Blood 34.4 L pCO2 (Temp correct) Arterial Blood 100.1 H pO2 (Temp corrected) Arterial Blood 22.0 HCO3 Arterial Blood -1.7 Base Excess Arterial Blood 97.2 Oxygen Saturation Jerad Test ACCEPTAB Arterial Blood Right Radial Gas Puncture Site Arterial 0.5 Blood Carboxyhemo globin Arterial Blood 0.2 Methemoglobin Blood Gas A-a O2 51.7 H Differential Oxyhemoglobin 96.5 Percent Blood Gas 37.0 Temperature Blood Gas NASAL CANNULA Modality FiO2 27.0 Blood Gas Henrik Cabezas [facility] Notified Whom Blood Gas 11/13/2018 5:21:2 Notified Time 6 AM Hepatitis B NEGATIVE Surface Antigen Hepatitis B Core NEGATIVE Total Antibody Hepatitis C NEGATIVE Antibody White Blood Count 7.8 Red Blood Count 3.78 L Hemoglobin 12.4 Hematocrit 36.5 L Mean Corpuscular 96.6 Volume Mean Corpuscular 32.8 Hemoglobin Mean Corpuscular 34.0 Hemoglobin Concen t Red Cell 20.7 H Distribution Width Platelet Count 117 L Mean Platelet 11.1 H Volume Immature 0.300 Granulocytes % Neutrophils % 67.4 Lymphocytes % 20.5 Monocytes % 11.3 H Eosinophils % 0.4 Basophils % 0.1 Nucleated Red 1.0 H Blood Cells % Immature 0.020 Granulocytes # Neutrophils # 5.3 Lymphocytes # 1.6 Monocytes # 0.9 Eosinophils # 0.0 Basophils # 0.0 Nucleated Red 0.1 H Blood Cells # Prothrombin Time 1.9 Ratio INR International 2.16 Normalized Ratio Test 11/13/18 05:18 Sodium Level 131 L Potassium Level 3.5 Chloride Level 96 L Carbon Dioxide 26 Level Anion Gap 9 Blood Urea 41 H Nitrogen Creatinine 1.95 H Est Glomerular Filtrat Rate mL/min Glucose Level 95 Calcium Level 8.1 L Total Bilirubin 1.0 Direct Bilirubin 0.00 Indirect 1.0 Bilirubin Aspartate Amino 212 H Transf (AST/SGOT) Alanine 239 H Aminotransferase (ALT/SGPT) Alkaline 153 H Phosphatase B-Type 4150 H Natriuretic Peptide Total Protein 5.9 L Albumin 3.4 Globulin 2.50 Albumin/Globulin 1.36 Ratio Medications Medication Current Medications Ciprofloxacin/ Dextrose 200 ml @ 200 mls/hr Q24H IVPB Last administered on 11/08/18 02:51; Admin Dose 200 MLS/HR; Start 11/08/18 at 03:00; Status Hold Metronidazole 100 ml @ 100 mls/hr Q8 IVPB Last administered on 11/07/18 22:15; Admin Dose 100 MLS/HR; Start 11/07/18 at 14:00; Status Hold Acetaminophen (Tylenol Tab) 650 mg Q6H PRN PO MILD PAIN(1-3)OR ELEVATED TEMP Last administered on 11/12/18 00:29; Admin Dose 650 MG; Start 11/07/18 at 10:00 Loperamide HCl (Imodium Cap) 2 mg QID PRN PO DIARRHEA Last administered on 11/09/18 02:45; Admin Dose 2 MG; Start 11/07/18 at 10:30 Amiodarone HCl (Cordarone) 100 mg DAILY PO Last administered on 11/13/18 10:12; Admin Dose 100 MG; Start 11/08/18 at 09:00 Apixaban (Eliquis) 2.5 mg BID PO Last administered on 11/13/18 10:12; Admin Dose 2.5 MG; Start 11/07/18 at 12:00 Cholecalciferol (Vitamin D) 2,000 unit DAILY PO Last administered on 11/13/18 10:12; Admin Dose 2,000 UNIT; Start 11/08/18 at 09:00 Donepezil HCl (Aricept) 10 mg DAILY PO Last administered on 11/13/18 10:11; Admin Dose 10 MG; Start 11/08/18 at 09:00 Escitalopram Oxalate (Lexapro) 20 mg DAILY PO Last administered on 11/13/18 10:11; Admin Dose 20 MG; Start 11/08/18 at 09:00 EZETIMIBE (Zetia) 10 mg DAILY PO Last administered on 11/13/18 10:11; Admin Dose 10 MG; Start 11/08/18 at 09:00 Folic Acid (Folic Acid) 1 mg DAILY PO Last administered on 11/13/18 10:12; Admin Dose 1 MG; Start 11/08/18 at 09:00 Pantoprazole (Protonix Tab) 40 mg DAILY@06 PO Last administered on 11/13/18 06:53; Admin Dose 40 MG; Start 11/08/18 at 06:00 Levothyroxine Sodium (Synthroid) 25 mcg DAILY@0600 PO Last administered on 11/13/18 06:53; Admin Dose 25 MCG; Start 11/08/18 at 06:30 Metoprolol Tartrate (Lopressor) 100 mg BID PO Last administered on 11/13/18 10:12; Admin Dose 100 MG; Start 11/08/18 at 21:00 Ondansetron HCl (Zofran Inj) 4 mg Q6H PRN IV NAUSEA AND/OR VOMITING Last administered on 11/12/18 12:55; Admin Dose 4 MG; Start 11/08/18 at 10:30 Lorazepam (Ativan) 0.5 mg Q6H PRN PO ANXIETY Last administered on 11/11/18 23:18; Admin Dose 0.5 MG; Start 11/09/18 at 00:00 Psyllium Hydrophilic Mucilloid (Metamucil) 1 pkt DAILY PO Last administered on 11/13/18 10:12; Admin Dose 1 PKT; Start 11/10/18 at 09:00 Furosemide (Lasix) 20 mg BID DIURETICS IV Last administered on 11/13/18 06:54; Admin Dose 20 MG; Start 11/12/18 at 18:00 Ferrous Sulfate (Ferrous Sulfate (Ec)) 325 mg QHS PO Last administered on 11/12/18 21:03; Admin Dose 325 MG; Start 11/12/18 at 21:00 Megestrol Acetate (Megace Susp) 400 mg BID PO Last administered on 11/13/18 10:10; Admin Dose 400 MG; Start 11/12/18 at 21:00 Phytonadione (Vitamin K) 5 mg DAILY PO ; Start 11/14/18 at 09:00; Stop 11/16/18 at 09:01 TONY SHETTY MD Nov 13, 2018 17:40
--- NOTE | 2018-11-13 18:13 | CONS ---
Assessment/Plan Assessment/Plan Assessment/Plan (Daily) 1. acute kidney injury on CKD III due to hemodynamics from CHF 2. acute Hyponatremia due to CHF 3. acute decompensated CHF, acute on chronic 4. Atriall fibrillation, initially RVR on admission, now rate controlled 5. Possible colitis 6. h/o HTN 7. H/o Dyslipidemia Plan: Na improved to 131, BUN/Cr 41/1.95, BP stable,s/p bumex gtt at 1 mg/hr x 12 hr- today still has LE Edema, Crackles improvign, will give another Bumex gtt at 1 mg/hr x 12 hr then possibly start bumex 1 mg IV BID after that keep alves catheter for today then d/c on Monday amiodarone 100mg po daily, Eliqus 2.5 mg pO BID, will follow up Consultation Date/Type/Reason Admit Date/Time Nov 07, 2018 at 12:41 Initial Consult Date 11/09/18 Type of Consult NEPHROLOGY Requesting Provider: REJI KAUFFMAN MD Date/Time of Note DATE: 11/13/18 TIME: 18:13 Exam/Review of Systems Exam Vitals Vital Signs Date Temp Pulse Resp B/P (MAP) Pulse Ox O2 O2 Flow FiO2 Time Delivery Rate 11/13/18 86 16:12 11/13/18 97.8 20 136/72 100 Mechanical 15:55 (93) Ventilator Nasal Cannula Intake and Output 11/12/18 11/12/18 11/13/18 1515:00 23:00 07:00 IntakeIntake Total 700 ml 250 ml OutputOutput Total 400 ml 2500 ml BalanceBalance 300 ml -2250 ml Exam Constitutional: No distress Neck: + JVD, no LAD Respiratory: bibasilar crackles Cardiovascular: regular rate and rhythm, irregular rhythm Gastrointestinal: soft, non-tender, bowel sounds Extremities: 3+ LE pitting edema, hand swelling +, back swelling + Skin: nl turgor Results Result Diagram: 11/13/18 0517 11/13/18 0518 Results 24hrs Laboratory Tests Test 11/12/18 18:31 11/13/18 05:00 11/13/18 05:15 11/13/18 05:17 Prothrombin Time 22.8 H 24.2 H Activated 30.3 34.7 Partial Thrombopl ast Time Mix PT Patient 16.1 Plasma Immediate PT Mixing Studies Interpret ation Mix PTT Normal Plasma Immediate Blood Gas Blood arterial Specimen Source Arterial Blood 11/13/2018 5:05:4 Date Drawn 3 AM Arterial Blood pH 7.424 (Temp corrected) Arterial Blood 34.4 L pCO2 (Temp correct) Arterial Blood 100.1 H pO2 (Temp corrected) Arterial Blood 22.0 HCO3 Arterial Blood -1.7 Base Excess Arterial Blood 97.2 Oxygen Saturation Jerad Test ACCEPTAB Arterial Blood Right Radial Gas Puncture Site Arterial 0.5 Blood Carboxyhemo globin Arterial Blood 0.2 Methemoglobin Blood Gas A-a O2 51.7 H Differential Oxyhemoglobin 96.5 Percent Blood Gas 37.0 Temperature Blood Gas NASAL CANNULA Modality FiO2 27.0 Blood Gas Henrik Cabezas [employer] Notified Whom Blood Gas 11/13/2018 5:21:2 Notified Time 6 AM Hepatitis B NEGATIVE Surface Antigen Hepatitis B Core NEGATIVE Total Antibody Hepatitis C NEGATIVE Antibody White Blood Count 7.8 Red Blood Count 3.78 L Hemoglobin 12.4 Hematocrit 36.5 L Mean Corpuscular 96.6 Volume Mean Corpuscular 32.8 Hemoglobin Mean Corpuscular 34.0 Hemoglobin Concen t Red Cell 20.7 H Distribution Width Platelet Count 117 L Mean Platelet 11.1 H Volume Immature 0.300 Granulocytes % Neutrophils % 67.4 Lymphocytes % 20.5 Monocytes % 11.3 H Eosinophils % 0.4 Basophils % 0.1 Nucleated Red 1.0 H Blood Cells % Immature 0.020 Granulocytes # Neutrophils # 5.3 Lymphocytes # 1.6 Monocytes # 0.9 Eosinophils # 0.0 Basophils # 0.0 Nucleated Red 0.1 H Blood Cells # Prothrombin Time 1.9 Ratio INR International 2.16 Normalized Ratio Test 11/13/18 05:18 Sodium Level 131 L Potassium Level 3.5 Chloride Level 96 L Carbon Dioxide 26 Level Anion Gap 9 Blood Urea 41 H Nitrogen Creatinine 1.95 H Est Glomerular Filtrat Rate mL/min Glucose Level 95 Calcium Level 8.1 L Total Bilirubin 1.0 Direct Bilirubin 0.00 Indirect 1.0 Bilirubin Aspartate Amino 212 H Transf (AST/SGOT) Alanine 239 H Aminotransferase (ALT/SGPT) Alkaline 153 H Phosphatase B-Type 4150 H Natriuretic Peptide Total Protein 5.9 L Albumin 3.4 Globulin 2.50 Albumin/Globulin 1.36 Ratio Medications Medication Current Medications Ciprofloxacin/ Dextrose 200 ml @ 200 mls/hr Q24H IVPB Last administered on 11/08/18 02:51; Admin Dose 200 MLS/HR; Start 11/08/18 at 03:00; Status Hold Metronidazole 100 ml @ 100 mls/hr Q8 IVPB Last administered on 11/07/18 22:15; Admin Dose 100 MLS/HR; Start 11/07/18 at 14:00; Status Hold Acetaminophen (Tylenol Tab) 650 mg Q6H PRN PO MILD PAIN(1-3)OR ELEVATED TEMP Last administered on 11/12/18 00:29; Admin Dose 650 MG; Start 11/07/18 at 10:00 Loperamide HCl (Imodium Cap) 2 mg QID PRN PO DIARRHEA Last administered on 11/09/18 02:45; Admin Dose 2 MG; Start 11/07/18 at 10:30 Amiodarone HCl (Cordarone) 100 mg DAILY PO Last administered on 11/13/18 10:12; Admin Dose 100 MG; Start 11/08/18 at 09:00 Apixaban (Eliquis) 2.5 mg BID PO Last administered on 11/13/18 10:12; Admin Dose 2.5 MG; Start 11/07/18 at 12:00 Cholecalciferol (Vitamin D) 2,000 unit DAILY PO Last administered on 11/13/18 10:12; Admin Dose 2,000 UNIT; Start 11/08/18 at 09:00 Donepezil HCl (Aricept) 10 mg DAILY PO Last administered on 11/13/18 10:11; Admin Dose 10 MG; Start 11/08/18 at 09:00 Escitalopram Oxalate (Lexapro) 20 mg DAILY PO Last administered on 11/13/18 10:11; Admin Dose 20 MG; Start 11/08/18 at 09:00 EZETIMIBE (Zetia) 10 mg DAILY PO Last administered on 11/13/18 10:11; Admin Dose 10 MG; Start 11/08/18 at 09:00 Folic Acid (Folic Acid) 1 mg DAILY PO Last administered on 11/13/18 10:12; Admin Dose 1 MG; Start 11/08/18 at 09:00 Pantoprazole (Protonix Tab) 40 mg DAILY@06 PO Last administered on 11/13/18 06:53; Admin Dose 40 MG; Start 11/08/18 at 06:00 Levothyroxine Sodium (Synthroid) 25 mcg DAILY@0600 PO Last administered on 11/13/18 06:53; Admin Dose 25 MCG; Start 11/08/18 at 06:30 Metoprolol Tartrate (Lopressor) 100 mg BID PO Last administered on 11/13/18 10:12; Admin Dose 100 MG; Start 11/08/18 at 21:00 Ondansetron HCl (Zofran Inj) 4 mg Q6H PRN IV NAUSEA AND/OR VOMITING Last administered on 11/12/18 12:55; Admin Dose 4 MG; Start 11/08/18 at 10:30 Lorazepam (Ativan) 0.5 mg Q6H PRN PO ANXIETY Last administered on 11/11/18 23:18; Admin Dose 0.5 MG; Start 11/09/18 at 00:00 Psyllium Hydrophilic Mucilloid (Metamucil) 1 pkt DAILY PO Last administered on 11/13/18 10:12; Admin Dose 1 PKT; Start 11/10/18 at 09:00 Furosemide (Lasix) 20 mg BID DIURETICS IV Last administered on 11/13/18 06:54; Admin Dose 20 MG; Start 11/12/18 at 18:00 Ferrous Sulfate (Ferrous Sulfate (Ec)) 325 mg QHS PO Last administered on 11/12/18 21:03; Admin Dose 325 MG; Start 11/12/18 at 21:00 Megestrol Acetate (Megace Susp) 400 mg BID PO Last administered on 11/13/18 10:10; Admin Dose 400 MG; Start 11/12/18 at 21:00 Phytonadione (Vitamin K) 5 mg DAILY PO ; Start 11/14/18 at 09:00; Stop 11/16/18 at 09:01 Bumetanide (Bumex) 1 mg BID DIURETICS IV ; Start 11/13/18 at 18:30; Status UNV Bumetanide 12 mg/ Dextrose/Water 120 ml @ 10 mls/hr Q12H ONCE IV ; Start 11/13/18 at 18:30; Stop 11/14/18 at 06:29; Status UNV BEATRIZ PLEITEZ MD Nov 13, 2018 18:13
[2018-11-13] MEDS ORDERED: BUMETANIDE 1 MG INJ IV SCH (18:30)
[2018-11-13] MEDS ORDERED: BUMETANIDE 12 MG in DEXTROSE 5% 72 ML IV ONE (18:30)
[2018-11-13] MEDS: FERROUS SULFATE (EC) 325 MG TAB PO SCH (20:22)
[2018-11-14] VITALS (10 sets, daily range): BP systolic 91–140; BP diastolic 53–72; PULSE 90–111; RESP 18–22
[2018-11-14] MEDS: PANTOPRAZOLE (EC) 40 MG TAB PO SCH (05:26)
[2018-11-14] MEDS: LEVOTHYROXINE 25 MCG TAB PO SCH (05:26)
[2018-11-14] MEDS: FUROSEMIDE 20 MG INJ IV SCH (05:26)
--- NOTE | 2018-11-14 07:35 | CONS ---
Assessment/Plan Assessment/Plan Hospital Course (Demo Recall) 83 yo female with N/V and diarrhea 1. Nausea, vomiting and diarrhea which have subsided now, most probably related to viral infection or of infectious etiology. 2. Atrial fibrillation for which she is on Eliquis. 3. Status post pacemaker insertion. 4. Dyslipidemia. 5. Hypothyroidism. 6. Hypertension. 7. Fatigue -likely due to depression -lexapro 8. Pedal edema pitting all the way up to knee, has reduced her drastically responded well to diuretics. 9. Coagulopathy may be cirrhosis of liver is contributing. 10. Abnormal LFT -trending up -patient CAT scan shows nodular liver which may be due to cirrhosis and also steatosis is playing a role -Hep panel unremarkable 11. Thrombocytopenia -followed by Dr Ramsay 12. Liver cirrhosis noted in CT scan -HEARD? -hep panel unremarkable. Plan hepatic autoimmune panel Continue Metamucil for constipation and incomplete evacuation Continue present care discussed with the daughter will do EGD and: Once he is more stable Pt examined and plan of care discussed with Dr Merchant Consultation Date/Type/Reason Admit Date/Time Nov 07, 2018 at 12:41 Initial Consult Date 11/12/18 Requesting Provider: REJI KAUFFMAN MD Date/Time of Note DATE: 11/14/18 TIME: 07:30 24 HR Interval Summary Free Text/Dictation Pt c/o epigastric burning pain about 5/10. Small tarry dark stool yesterday, pt is on PO iron. Denies weakness, lightheadedness. HH is wnl. LFTs have gone up slightly. Exam/Review of Systems Exam Vitals Vital Signs Date Temp Pulse Resp B/P (MAP) Pulse Ox O2 O2 Flow FiO2 Time Delivery Rate 11/14/18 106 04:00 11/14/18 98.6 18 125/72 94 04:00 (89) 11/13/18 Mechanical 15:55 Ventilator Nasal Cannula Intake and Output 11/13/18 11/13/18 11/14/18 1515:00 23:00 07:00 IntakeIntake Total 1300 ml OutputOutput Total 5500 ml BalanceBalance -4200 ml Constitutional: alert, oriented Psych: no complaints Head: normocephalic Eyes: nl sclera, PERRL Respiratory: normal air movement Cardiovascular: regular rate and rhythm Gastrointestinal: soft, non-tender Neurological: nl mental status Results Result Diagram: 11/13/18 0517 11/14/18 0532 Results 24hrs Laboratory Tests Test 11/14/18 05:32 Sodium Level 138 Potassium Level 2.8 *L Chloride Level 94 L Carbon Dioxide Level Pending Anion Gap Pending Blood Urea Nitrogen 34 H Creatinine 1.32 H Est Glomerular Filtrat Rate mL/min Glucose Level 129 Calcium Level 7.7 L Medications Medication Current Medications Ciprofloxacin/ Dextrose 200 ml @ 200 mls/hr Q24H IVPB Last administered on 11/08/18 02:51; Admin Dose 200 MLS/HR; Start 11/08/18 at 03:00; Status Hold Metronidazole 100 ml @ 100 mls/hr Q8 IVPB Last administered on 11/07/18 22:15; Admin Dose 100 MLS/HR; Start 11/07/18 at 14:00; Status Hold Acetaminophen (Tylenol Tab) 650 mg Q6H PRN PO MILD PAIN(1-3)OR ELEVATED TEMP Last administered on 11/12/18 00:29; Admin Dose 650 MG; Start 11/07/18 at 10:00 Loperamide HCl (Imodium Cap) 2 mg QID PRN PO DIARRHEA Last administered on 11/09/18 02:45; Admin Dose 2 MG; Start 11/07/18 at 10:30 Amiodarone HCl (Cordarone) 100 mg DAILY PO Last administered on 11/13/18 10:12; Admin Dose 100 MG; Start 11/08/18 at 09:00 Apixaban (Eliquis) 2.5 mg BID PO Last administered on 11/13/18 20:22; Admin Dose 2.5 MG; Start 11/07/18 at 12:00 Cholecalciferol (Vitamin D) 2,000 unit DAILY PO Last administered on 11/13/18 10:12; Admin Dose 2,000 UNIT; Start 11/08/18 at 09:00 Donepezil HCl (Aricept) 10 mg DAILY PO Last administered on 11/13/18 10:11; Admin Dose 10 MG; Start 11/08/18 at 09:00 Escitalopram Oxalate (Lexapro) 20 mg DAILY PO Last administered on 11/13/18 10:11; Admin Dose 20 MG; Start 11/08/18 at 09:00 EZETIMIBE (Zetia) 10 mg DAILY PO Last administered on 11/13/18 10:11; Admin Dose 10 MG; Start 11/08/18 at 09:00 Folic Acid (Folic Acid) 1 mg DAILY PO Last administered on 11/13/18 10:12; Ad min Dose 1 MG; Start 11/08/18 at 09:00 Pantoprazole (Protonix Tab) 40 mg DAILY@06 PO Last administered on 11/14/18 05:26; Admin Dose 40 MG; Start 11/08/18 at 06:00 Levothyroxine Sodium (Synthroid) 25 mcg DAILY@0600 PO Last administered on 11/14/18 05:26; Admin Dose 25 MCG; Start 11/08/18 at 06:30 Metoprolol Tartrate (Lopressor) 100 mg BID PO Last administered on 11/13/18 20:54; Admin Dose 100 MG; Start 11/08/18 at 21:00 Ondansetron HCl (Zofran Inj) 4 mg Q6H PRN IV NAUSEA AND/OR VOMITING Last administered on 11/12/18 12:55; Admin Dose 4 MG; Start 11/08/18 at 10:30 Lorazepam (Ativan) 0.5 mg Q6H PRN PO ANXIETY Last administered on 11/11/18 23:18; Admin Dose 0.5 MG; Start 11/09/18 at 00:00 Psyllium Hydrophilic Mucilloid (Metamucil) 1 pkt DAILY PO Last administered on 11/13/18 10:12; Admin Dose 1 PKT; Start 11/10/18 at 09:00 Furosemide (Lasix) 20 mg BID DIURETICS IV Last administered on 11/14/18 05:26; Admin Dose 20 MG; Start 11/12/18 at 18:00 Ferrous Sulfate (Ferrous Sulfate (Ec)) 325 mg QHS PO Last administered on 11/13/18 20:22; Admin Dose 325 MG; Start 11/12/18 at 21:00 Megestrol Acetate (Megace Susp) 400 mg BID PO Last administered on 11/13/18 20:22; Admin Dose 400 MG; Start 11/12/18 at 21:00 Phytonadione (Vitamin K) 5 mg DAILY PO ; Start 11/14/18 at 09:00; Stop 11/16/18 at 09:01 HEATHER MEDRANO Nov 14, 2018 07:35
[2018-11-14] MEDS: PSYLLIUM 28% PACKET PO SCH (08:54)
[2018-11-14] MEDS: MEGESTROL (40 MG/ML) 10ML CUP PO SCH ×2 (08:54→20:09)
[2018-11-14] MEDS: DONEPEZIL 10 MG TAB PO SCH (08:55)
[2018-11-14] MEDS: METOPROLOL 100 MG TAB PO SCH ×2 (08:56→20:19)
[2018-11-14] MEDS: AMIODARONE 200 MG TAB PO SCH (08:56)
[2018-11-14] MEDS: FOLIC ACID 1 MG TAB PO SCH (08:57)
[2018-11-14] MEDS: ESCITALOPRAM 10 MG TAB PO SCH (08:58)
[2018-11-14] MEDS: CHOLECALCIFEROL 2,000 UNIT CAP PO SCH (08:58)
[2018-11-14] MEDS: APIXABAN 5 MG TABLET PO SCH ×2 (08:58→20:09)
[2018-11-14] MEDS: EZETIMIBE 10 MG TAB PO SCH (08:58)
[2018-11-14] MEDS: PHYTONADIONE (1 MG/ML PO SYG) PO SCH (09:08)
[2018-11-14] MEDS ORDERED: POTASSIUM CHLORIDE 100 ML IVPB STA (09:45)
--- NOTE | 2018-11-14 10:11 | CONS ---
Assessment/Plan Assessment/Plan Assessment/Plan (Daily) 1. acute kidney injury on CKD III due to hemodynamics from CHF 2. acute Hyponatremia due to CHF 3. acute decompensated CHF, acute on chronic 4. Atriall fibrillation, initially RVR on admission, now rate controlled 5. Possible colitis 6. h/o HTN 7. H/o Dyslipidemia Plan: s/p bumex gtt for 2 days, now on Bumex 1 mg IV BID, plan is to switch to PO bumex after 2 days KCl 20mEQ IV x 1 dose stat, Continue PO KCL 20meQ BID , Agressively repalce electrolytes and monitor it keep alves catheter for today then d/c on Monday amiodarone 100mg po daily, Eliqus 2.5 mg pO BID for anticoagulation Dr. Kevin Higgins will be following up from 11/15/18 will follow up Consultation Date/Type/Reason Admit Date/Time Nov 07, 2018 at 12:41 Initial Consult Date 11/09/18 Type of Consult NEPHROLOGY Requesting Provider: REJI KAUFFMAN MD Date/Time of Note DATE: 11/14/18 TIME: 10:11 24 HR Interval Summary Free Text/Dictation BUN/Cr 34/1.32, BP stable, edema improved much better , no SOB, off oxygen Exam/Review of Systems Exam Vitals Vital Signs Date Temp Pulse Resp B/P (MAP) Pulse Ox O2 O2 Flow FiO2 Time Delivery Rate 11/14/18 90 08:00 11/14/18 97.6 134/69 96 Nasal 2.0 07:40 (90) Cannula 11/14/18 18 04:00 Intake and Output 11/13/18 11/13/18 11/14/18 1515:00 23:00 07:00 IntakeIntake Total 1300 ml OutputOutput Total 5500 ml BalanceBalance -4200 ml Exam Constitutional: No distress Neck: + JVD, no LAD Respiratory: bibasilar crackles Cardiovascular: regular rate and rhythm, irregular rhythm Gastrointestinal: soft, non-tender, bowel sounds Extremities: 3+ LE pitting edema, hand swelling +, back swelling + Skin: nl turgor Results Result Diagram: 11/13/18 0517 11/14/18 0532 Results 24hrs Laboratory Tests Test 11/14/18 05:32 Sodium Level 138 Potassium Level 2.8 *L Chloride Level 94 L Carbon Dioxide Level 33 H Anion Gap 11 Blood Urea Nitrogen 34 H Creatinine 1.32 H Est Glomerular Filtrat Rate mL/min Glucose Level 129 Calcium Level 7.7 L Medications Medication Current Medications Ciprofloxacin/ Dextrose 200 ml @ 200 mls/hr Q24H IVPB Last administered on 11/08/18 02:51; Admin Dose 200 MLS/HR; Start 11/08/18 at 03:00; Status Hold Metronidazole 100 ml @ 100 mls/hr Q8 IVPB Last administered on 11/07/18 22:15; Admin Dose 100 MLS/HR; Start 11/07/18 at 14:00; Status Hold Acetaminophen (Tylenol Tab) 650 mg Q6H PRN PO MILD PAIN(1-3)OR ELEVATED TEMP Last administered on 11/12/18 00:29; Admin Dose 650 MG; Start 11/07/18 at 10:00 Loperamide HCl (Imodium Cap) 2 mg QID PRN PO DIARRHEA Last administered on 11/09/18 02:45; Admin Dose 2 MG; Start 11/07/18 at 10:30 Amiodarone HCl (Cordarone) 100 mg DAILY PO Last administered on 11/14/18 08:56; Admin Dose 100 MG; Start 11/08/18 at 09:00 Apixaban (Eliquis) 2.5 mg BID PO Last administered on 11/14/18 08:58; Admin Dose 2.5 MG; Start 11/07/18 at 12:00 Cholecalciferol (Vitamin D) 2,000 unit DAILY PO Last administered on 11/14/18 08:58; Admin Dose 2,000 UNIT; Start 11/08/18 at 09:00 Donepezil HCl (Aricept) 10 mg DAILY PO Last administered on 11/14/18 08:55; Admin Dose 10 MG; Start 11/08/18 at 09:00 Escitalopram Oxalate (Lexapro) 20 mg DAILY PO Last administered on 11/14/18 08:58; Admin Dose 20 MG; Start 11/08/18 at 09:00 EZETIMIBE (Zetia) 10 mg DAILY PO Last administered on 11/14/18 08:58; Admin Dose 10 MG; Start 11/08/18 at 09:00 Folic Acid (Folic Acid) 1 mg DAILY PO Last administered on 11/14/18 08:57; Admin Dose 1 MG; Start 11/08/18 at 09:00 Pantoprazole (Protonix Tab) 40 mg DAILY@06 PO Last administered on 11/14/18 05:26; Admin Dose 40 MG; Start 11/08/18 at 06:00 Levothyroxine Sodium (Synthroid) 25 mcg DAILY@0600 PO Last administered on 11/14/18 05:26; Admin Dose 25 MCG; Start 11/08/18 at 06:30 Metoprolol Tartrate (Lopressor) 100 mg BID PO Last administered on 11/14/18 08:56; Admin Dose 100 MG; Start 11/08/18 at 21:00 Ondansetron HCl (Zofran Inj) 4 mg Q6H PRN IV NAUSEA AND/OR VOMITING Last administered on 11/12/18 12:55; Admin Dose 4 MG; Start 11/08/18 at 10:30 Lorazepam (Ativan) 0.5 mg Q6H PRN PO ANXIETY Last administered on 11/11/18 23:18; Admin Dose 0.5 MG; Start 11/09/18 at 00:00 Psyllium Hydrophilic Mucilloid (Metamucil) 1 pkt DAILY PO Last administered on 11/14/18 08:54; Admin Dose 1 PKT; Start 11/10/18 at 09:00 Ferrous Sulfate (Ferrous Sulfate (Ec)) 325 mg QHS PO Last administered on 11/13/18 20:22; Admin Dose 325 MG; Start 11/12/18 at 21:00 Megestrol Acetate (Megace Susp) 400 mg BID PO Last administered on 11/14/18 08:54; Admin Dose 400 MG; Start 11/12/18 at 21:00 Phytonadione (Vitamin K) 5 mg DAILY PO Last administered on 11/14/18 09:08; Admin Dose 5 MG; Start 11/14/18 at 09:00; Stop 11/16/18 at 09:01 Bumetanide (Bumex) 1 mg BID DIURETICS IV ; Start 11/14/18 at 10:00; Stop at 12:00 Potassium Chloride 100 ml @ 50 mls/hr ONCE STAT IVPB ; Start 11/14/18 at 09:45; Stop 11/14/18 at 11:44 Potassium Chloride (Klor-Con 20) 20 meq BID PO ; Start 11/14/18 at 21:00 Bumetanide (Bumex) 1 mg BID DIURETICS PO ; Start 11/16/18 at 18:00 BEATRIZ PLEITEZ MD Nov 14, 2018 10:11
[2018-11-14] MEDS: BUMETANIDE 1 MG INJ IV SCH ×2 (10:37→17:37)
[2018-11-14] MEDS ORDERED: MAGNESIUM SULFATE 2 GM/50 ML 50 ML IVPB ONE (11:30)
--- NOTE | 2018-11-14 12:06 | CONS ---
Assessment/Plan Cardiology NYHA: III Heart Failure Type: Acute on Chronic Heart Failure Type: Both Assessment/Plan Hospital Course (Demo Recall) Atrial fibrillation with initially rapid ventricular rates, improved Nausea, vomiting-resolved Acute decompensated systolic and diastolic congestive heart failure Acute kidney injury-improving Mitral and tricuspid valve regurgitation Possible colitis Hypertension Dyslipidemia History of pacemaker Heart rate trend overall stable Renal function improving Diuretics as per nephrology Potassium supplementation has already been ordered, would also order magnesium to help with absorption DC planning Consultation Date/Type/Reason Admit Date/Time Nov 07, 2018 at 12:41 Initial Consult Date Type of Consult Cardiology Requesting Provider: REJI KAUFFMAN MD Date/Time of Note DATE: 11/14/18 TIME: 12:04 24 HR Interval Summary Free Text/Dictation Denies shortness of breath, palpitations. Main complaint is fatigue Exam/Review of Systems Vital Signs Vitals Vital Signs Date Temp Pulse Resp B/P (MAP) Pulse Ox O2 O2 Flow FiO2 Time Delivery Rate 11/14/18 90 08:00 11/14/18 97.6 134/69 96 Nasal 2.0 07:40 (90) Cannula 11/14/18 18 04:00 Intake and Output 11/13/18 11/13/18 11/14/18 1515:00 23:00 07:00 IntakeIntake Total 1300 ml OutputOutput Total 5500 ml BalanceBalance -4200 ml Exam Constitutional: alert, oriented (No apparent distress) Respiratory: other (Coarse breath sounds bilaterally, no wheezing) Cardiovascular: irregular rhythm, systolic murmur (S1-S2 heard) Gastrointestinal: soft, non-tender, bowel sounds Extremities: edema (Trace) Labs Result Diagram: 11/13/18 0517 11/14/18 0532 Results 24hrs Laboratory Tests Test 11/14/18 05:32 Sodium Level 138 Potassium Level 2.8 *L Chloride Level 94 L Carbon Dioxide Level 33 H Anion Gap 11 Blood Urea Nitrogen 34 H Creatinine 1.32 H Est Glomerular Filtrat Rate mL/min Glucose Level 129 Calcium Level 7.7 L Medications Medications Current Medications Ciprofloxacin/ Dextrose 200 ml @ 200 mls/hr Q24H IVPB Last administered on 11/08/18at 02:51; Admin Dose 200 MLS/HR; Start 11/08/18 at 03:00; Status Hold Metronidazole 100 ml @ 100 mls/hr Q8 IVPB Last administered on 11/07/18 22:15; Admin Dose 100 MLS/HR; Start 11/07/18 at 14:00; Status Hold Acetaminophen (Tylenol Tab) 650 mg Q6H PRN PO MILD PAIN(1-3)OR ELEVATED TEMP Last administered on 11/12/18 00:29; Admin Dose 650 MG; Start 11/07/18 at 10:00 Loperamide HCl (Imodium Cap) 2 mg QID PRN PO DIARRHEA Last administered on 11/09/18 02:45; Admin Dose 2 MG; Start 11/07/18 at 10:30 Amiodarone HCl (Cordarone) 100 mg DAILY PO Last administered on 11/14/18 08:56; Admin Dose 100 MG; Start 11/08/18 at 09:00 Apixaban (Eliquis) 2.5 mg BID PO Last administered on 11/14/18 08:58; Admin Dose 2.5 MG; Start 11/07/18 at 12:00 Cholecalciferol (Vitamin D) 2,000 unit DAILY PO Last administered on 11/14/18 08:58; Admin Dose 2,000 UNIT; Start 11/08/18 at 09:00 Donepezil HCl (Aricept) 10 mg DAILY PO Last administered on 11/14/18 08:55; Admin Dose 10 MG; Start 11/08/18 at 09:00 Escitalopram Oxalate (Lexapro) 20 mg DAILY PO Last administered on 11/14/18 08:58; Admin Dose 20 MG; Start 11/08/18 at 09:00 EZETIMIBE (Zetia) 10 mg DAILY PO Last administered on 11/14/18 08:58; Admin Dose 10 MG; Start 11/08/18 at 09:00 Folic Acid (Folic Acid) 1 mg DAILY PO Last administered on 11/14/18 08:57; Admin Dose 1 MG; Start 11/08/18 at 09:00 Pantoprazole (Protonix Tab) 40 mg DAILY@06 PO Last administered on 11/14/18 05:26; Admin Dose 40 MG; Start 11/08/18 at 06:00 Levothyroxine Sodium (Synthroid) 25 mcg DAILY@0600 PO Last administered on 11/14/18 05:26; Admin Dose 25 MCG; Start 11/08/18 at 06:30 Metoprolol Tartrate (Lopressor) 100 mg BID PO Last administered on 11/14/18 08:56; Admin Dose 100 MG; Start 11/08/18 at 21:00 Ondansetron HCl (Zofran Inj) 4 mg Q6H PRN IV NAUSEA AND/OR VOMITING Last administered on 11/12/18 12:55; Admin Dose 4 MG; Start 11/08/18 at 10:30 Lorazepam (Ativan) 0.5 mg Q6H PRN PO ANXIETY Last administered on 11/11/18 23:18; Admin Dose 0.5 MG; Start 11/09/18 at 00:00 Psyllium Hydrophilic Mucilloid (Metamucil) 1 pkt DAILY PO Last administered on 11/14/18 08:54; Admin Dose 1 PKT; Start 11/10/18 at 09:00 Ferrous Sulfate (Ferrous Sulfate (Ec)) 325 mg QHS PO Last administered on 11/13/18 20:22; Admin Dose 325 MG; Start 11/12/18 at 21:00 Megestrol Acetate (Megace Susp) 400 mg BID PO Last administered on 11/14/18 08:54; Admin Dose 400 MG; Start 11/12/18 at 21:00 Phytonadione (Vitamin K) 5 mg DAILY PO Last administered on 11/14/18 09:08; Admin Dose 5 MG; Start 11/14/18 at 09:00; Stop 11/16/18 at 09:01 Bumetanide (Bumex) 1 mg BID DIURETICS IV Last administered on 11/14/18at 10:37; Admin Dose 1 MG; Start 11/14/18 at 10:00; Stop 11/16/18 at 12:00 Potassium Chloride (Klor-Con 20) 20 meq BID PO ; Start 11/14/18 at 21:00 Bumetanide (Bumex) 1 mg BID DIURETICS PO ; Start 11/16/18 at 18:00 Magnesium Sulfate 50 ml @ 25 mls/hr ONCE ONCE IVPB ; Start 11/14/18 at 11:30; Stop 11/14/18 at 13:29 Perico Mayers DO Nov 14, 2018 12:06
--- NOTE | 2018-11-14 14:23 | CONS ---
Assessment/Plan Assessment/Plan Hospital Course (Demo Recall) #Coagulopathy -pt is noted to have an elevated PT (26sec) and PTT(35 sec). Today patient;s PTT is within normal limits. PT mixing study corrected. This essentially rules out a factor inhibitor. This makes the most likely cause of her coagulopathy her underlying cirrhosis and Vitamin K deficiency -will start oral Vitamin K 5mg po x 3 days -I do think eliquis can be continued at this time, even though the INR is 2.1, since the INR may fluctuate with his every day diet. Moreover, pt is not bl eeding with his elevated INR ane eliquis so I believe this can be continued. #Colitis -GI consulted -continue Levaquin and Flagyl #JACKELIN on CKD -pt getting fluids per osito #CHF -pt on bumex #Afib -may continue eliquis as mentioned above #HTN -continue current BP meds #RA -on remicaid as an out patient Thank you for the opportunity to participate in this patients care A total of 40 minutes of face to face time was spent speaking with the patient, of which greater than 50% was spent in counseling and coordination of care and the detailed question and answer session. Consultation Date/Type/Reason Admit Date/Time Nov 07, 2018 at 12:41 Initial Consult Date 11/12/18 Type of Consult hematology Reason for Consultation coagulopathy Requesting Provider: REJI KAUFFMAN MD Date/Time of Note DATE: 11/14/18 TIME: 14:22 24 HR Interval Summary Free Text/Dictation no acute overnight events Exam/Review of Systems Exam Vitals Vital Signs Date Temp Pulse Resp B/P (MAP) Pulse Ox O2 O2 Flow FiO2 Time Delivery Rate 11/14/18 98.5 102 22 112/56 96 Nasal 12:21 (74) Cannula 11/14/18 2.0 07:40 Intake and Output 11/13/18 11/13/18 11/14/18 1515:00 23:00 07:00 IntakeIntake Total 1300 ml OutputOutput Total 5500 ml BalanceBalance -4200 ml Constitutional: alert, oriented Psych: anxiety Head: atraumatic ENMT: nl external ears & nose Neck: supple Respiratory: clear to auscultation Cardiovascular: regular rate and rhythm Gastrointestinal: soft Musculoskeletal: nl extremities to inspection Extremities: edema Results Result Diagram: 11/13/18 0517 11/14/18 0532 Results 24hrs Laboratory Tests Test 11/14/18 05:32 Sodium Level 138 Potassium Level 2.8 *L Chloride Level 94 L Carbon Dioxide Level 33 H Anion Gap 11 Blood Urea Nitrogen 34 H Creatinine 1.32 H Est Glomerular Filtrat Rate mL/min Glucose Level 129 Calcium Level 7.7 L Medications Medication Current Medications Ciprofloxacin/ Dextrose 200 ml @ 200 mls/hr Q24H IVPB Last administered on 11/08/18 02:51; Admin Dose 200 MLS/HR; Start 11/08/18 at 03:00; Status Hold Metronidazole 100 ml @ 100 mls/hr Q8 IVPB Last administered on 11/07/18 22:15; Admin Dose 100 MLS/HR; Start 11/07/18 at 14:00; Status Hold Acetaminophen (Tylenol Tab) 650 mg Q6H PRN PO MILD PAIN(1-3)OR ELEVATED TEMP Last administered on 11/12/18 00:29; Admin Dose 650 MG; Start 11/07/18 at 10:00 Loperamide HCl (Imodium Cap) 2 mg QID PRN PO DIARRHEA Last administered on 11/09/18 02:45; Admin Dose 2 MG; Start 11/07/18 at 10:30 Amiodarone HCl (Cordarone) 100 mg DAILY PO Last administered on 11/14/18at 0 8:56; Admin Dose 100 MG; Start 11/08/18 at 09:00 Apixaban (Eliquis) 2.5 mg BID PO Last administered on 11/14/18 08:58; Admin Dose 2.5 MG; Start 11/07/18 at 12:00 Cholecalciferol (Vitamin D) 2,000 unit DAILY PO Last administered on 11/14/18 08:58; Admin Dose 2,000 UNIT; Start 11/08/18 at 09:00 Donepezil HCl (Aricept) 10 mg DAILY PO Last administered on 11/14/18 08:55; Admin Dose 10 MG; Start 11/08/18 at 09:00 Escitalopram Oxalate (Lexapro) 20 mg DAILY PO Last administered on 11/14/18 08:58; Admin Dose 20 MG; Start 11/08/18 at 09:00 EZETIMIBE (Zetia) 10 mg DAILY PO Last administered on 11/14/18 08:58; Admin Dose 10 MG; Start 11/08/18 at 09:00 Folic Acid (Folic Acid) 1 mg DAILY PO Last administered on 11/14/18 08:57; Admin Dose 1 MG; Start 11/08/18 at 09:00 Pantoprazole (Protonix Tab) 40 mg DAILY@06 PO Last administered on 11/14/18 05:26; Admin Dose 40 MG; Start 11/08/18 at 06:00 Levothyroxine Sodium (Synthroid) 25 mcg DAILY@0600 PO Last administered on 11/14/18 05:26; Admin Dose 25 MCG; Start 11/08/18 at 06:30 Metoprolol Tartrate (Lopressor) 100 mg BID PO Last administered on 11/14/18 08:56; Admin Dose 100 MG; Start 11/08/18 at 21:00 Ondansetron HCl (Zofran Inj) 4 mg Q6H PRN IV NAUSEA AND/OR VOMITING Last administered on 11/12/18 12:55; Admin Dose 4 MG; Start 11/08/18 at 10:30 Lorazepam (Ativan) 0.5 mg Q6H PRN PO ANXIETY Last administered on 11/11/18 23:18; Admin Dose 0.5 MG; Start 11/09/18 at 00:00 Psyllium Hydrophilic Mucilloid (Metamucil) 1 pkt DAILY PO Last administered on 11/14/18 08:54; Admin Dose 1 PKT; Start 11/10/18 at 09:00 Ferrous Sulfate (Ferrous Sulfate (Ec)) 325 mg QHS PO Last administered on 11/13/18 20:22; Admin Dose 325 MG; Start 11/12/18 at 21:00 Megestrol Acetate (Megace Susp) 400 mg BID PO Last administered on 11/14/18 08:54; Admin Dose 400 MG; Start 11/12/18 at 21:00 Phytonadione (Vitamin K) 5 mg DAILY PO Last administered on 11/14/18 09:08; Admin Dose 5 MG; Start 11/14/18 at 09:00; Stop 11/16/18 at 09:01 Bumetanide (Bumex) 1 mg BID DIURETICS IV Last administered on 11/14/18 10:37; Admin Dose 1 MG; Start 11/14/18 at 10:00; Stop 11/16/18 at 12:00 Potassium Chloride (Klor-Con 20) 20 meq BID PO ; Start 11/14/18 at 21:00 Bumetanide (Bumex) 1 mg BID DIURETICS PO ; Start 11/16/18 at 18:00 CRISTIAN LEBLANC M.D. Nov 14, 2018 14:23
--- NOTE | 2018-11-14 15:39 | PN ---
Date/Time of Note Date/Time of Note DATE: 11/14/18 TIME: 15:36 Assessment/Plan VTE Prophylaxis Risk score (from Ns)>0 risk: 8 SCD applied (from Nsg): Yes Pharmacological prophylaxis: apixaban Lines/Catheters IV Catheter Type (from Nrsg): Mid Line Central line still needed: Yes Urinary Cath still in place: Yes Reason Cath still needed: urinary retention Assessment/Plan Hospital Course Patient is currently on Bumex drip, adequate urine output Via [address], patient has better appetite. Atrial fibrillation at controlled rate. Patient complains of the left foot pain x-ray noted, Dr. Renetta wallace is asked to see patient in podiatry consultation per patient's daughter request. Patient's condition and plan of care discussed with patient daughter at the bedside, all questions answered. Assessment/Plan -Hypokalemia, potassium replaced, continue to monitor BMP. -Coagulopathy most likely to liver cirrhosis and vitamin K deficiency. Dr. Ramsay is following in hematology consultation. -Atrial fibrillation with initially rapid ventricular rates, currently well controlled, continue Eliquis and metoprolol. Dr Mayers is following in cardiology consultation. -Nausea vomiting and diarrhea for 2 days. f/up on stool for C. difficile, ova and parasites. Dr. Merchant is following in gastroenterology consultation. -Colitis per CT scan. S/p Levaquin and Flagyl. -CHF, continue Lasix -Hypertension, continue metoprolol Norvasc and Cozaar -PPM -Hypothyroidism -Rheumatoid arthritis Time spent with management of this patient and talking to family is 30 minutes. Further recommendations based on clinical course. Plan of care discussed with Dr. Rayo. Result Diagram: 11/13/18 0517 11/14/18 0532 Results 24hrs Laboratory Tests Test 11/14/18 05:32 Sodium Level 138 Potassium Level 2.8 *L Chloride Level 94 L Carbon Dioxide Level 33 H Anion Gap 11 Blood Urea Nitrogen 34 H Creatinine 1.32 H Est Glomerular Filtrat Rate mL/min Glucose Level 129 Calcium Level 7.7 L Exam/Review of Systems Exam Vitals Vital Signs Date Temp Pulse Resp B/P (MAP) Pulse Ox O2 O2 Flow FiO2 Time Delivery Rate 11/14/18 98.5 102 22 112/56 96 Nasal 12:21 (74) Cannula 11/14/18 2.0 07:40 Intake and Output 11/13/18 11/13/18 11/14/18 1515:00 23:00 07:00 IntakeIntake Total 1300 ml OutputOutput Total 5500 ml BalanceBalance -4200 ml Exam Constitutional: alert, oriented Respiratory: clear to auscultation Cardiovascular: irregular rhythm, other (L chest PPM) Gastrointestinal: soft, non-tender Musculoskeletal: nl extremities to inspection Extremities: normal pulses Neurological: nl mental status Results Results 24hrs Laboratory Tests Test 11/14/18 05:32 Sodium Level 138 Potassium Level 2.8 *L Chloride Level 94 L Carbon Dioxide Level 33 H Anion Gap 11 Blood Urea Nitrogen 34 H Creatinine 1.32 H Est Glomerular Filtrat Rate mL/min Glucose Level 129 Calcium Level 7.7 L Medications Medication Current Medications Ciprofloxacin/ Dextrose 200 ml @ 200 mls/hr Q24H IVPB Last administered on 11/08/18 02:51; Admin Dose 200 MLS/HR; Start 11/08/18 at 03:00; Status Hold Metronidazole 100 ml @ 100 mls/hr Q8 IVPB Last administered on 11/07/18at 22:15; Admin Dose 100 MLS/HR; Start 11/07/18 at 14:00; Status Hold Acetaminophen (Tylenol Tab) 650 mg Q6H PRN PO MILD PAIN(1-3)OR ELEVATED TEMP Last administered on 11/12/18 00:29; Admin Dose 650 MG; Start 11/07/18 at 10:00 Loperamide HCl (Imodium Cap) 2 mg QID PRN PO DIARRHEA Last administered on 11/09/18 02:45; Admin Dose 2 MG; Start 11/07/18 at 10:30 Amiodarone HCl (Cordarone) 100 mg DAILY PO Last administered on 11/14/18 08:56; Admin Dose 100 MG; Start 11/08/18 at 09:00 Apixaban (Eliquis) 2.5 mg BID PO Last administered on 11/14/18 08:58; Admin Dose 2.5 MG; Start 11/07/18 at 12:00 Cholecalciferol (Vitamin D) 2,000 unit DAILY PO Last administered on 11/14/18 08:58; Admin Dose 2,000 UNIT; Start 11/08/18 at 09:00 Donepezil HCl (Aricept) 10 mg DAILY PO Last administered on 11/14/18 08:55; Admin Dose 10 MG; Start 11/08/18 at 09:00 Escitalopram Oxalate (Lexapro) 20 mg DAILY PO Last administered on 11/14/18 08:58; Admin Dose 20 MG; Start 11/08/18 at 09:00 EZETIMIBE (Zetia) 10 mg DAILY PO Last administered on 11/14/18 08:58; Admin Dose 10 MG; Start 11/08/18 at 09:00 Folic Acid (Folic Acid) 1 mg DAILY PO Last administered on 11/14/18 08:57; Admin Dose 1 MG; Start 11/08/18 at 09:00 Pantoprazole (Protonix Tab) 40 mg DAILY@06 PO Last administered on 11/14/18 05:26; Admin Dose 40 MG; Start 11/08/18 at 06:00 Levothyroxine Sodium (Synthroid) 25 mcg DAILY@0600 PO Last administered on 11/14/18 05:26; Admin Dose 25 MCG; Start 11/08/18 at 06:30 Metoprolol Tartrate (Lopressor) 100 mg BID PO Last administered on 11/14/18 08:56; Admin Dose 100 MG; Start 11/08/18 at 21:00 Ondansetron HCl (Zofran Inj) 4 mg Q6H PRN IV NAUSEA AND/OR VOMITING Last administered on 11/12/18 12:55; Admin Dose 4 MG; Start 11/08/18 at 10:30 Lorazepam (Ativan) 0.5 mg Q6H PRN PO ANXIETY Last administered on 11/11/18 23:18; Admin Dose 0.5 MG; Start 11/09/18 at 00:00 Psyllium Hydrophilic Mucilloid (Metamucil) 1 pkt DAILY PO Last administered on 11/14/18 08:54; Admin Dose 1 PKT; Start 11/10/18 at 09:00 Ferrous Sulfate (Ferrous Sulfate (Ec)) 325 mg QHS PO Last administered on 11/13/18 20:22; Admin Dose 325 MG; Start 11/12/18 at 21:00 Megestrol Acetate (Megace Susp) 400 mg BID PO Last administered on 11/14/18 08:54; Admin Dose 400 MG; Start 11/12/18 at 21:00 Phytonadione (Vitamin K) 5 mg DAILY PO Last administered on 11/14/18at 09:08; Admin Dose 5 MG; Start 11/14/18 at 09:00; Stop 11/16/18 at 09:01 Bumetanide (Bumex) 1 mg BID DIURETICS IV Last administered on 11/14/18at 10:37; Admin Dose 1 MG; Start 11/14/18 at 10:00; Stop 11/16/18 at 12:00 Potassium Chloride (Klor-Con 20) 20 meq BID PO ; Start 11/14/18 at 21:00 Bumetanide (Bumex) 1 mg BID DIURETICS PO ; Start 11/16/18 at 18:00 OSCAR GAYTAN Nov 14, 2018 15:39
[2018-11-14] MEDS: POTASSIUM CHLORIDE (SR) 20 MEQ TAB PO SCH (20:09)
[2018-11-14] MEDS: FERROUS SULFATE (EC) 325 MG TAB PO SCH (20:09)
--- NOTE | 2018-11-14 21:20 | CONS ---
DATE OF ADMISSION: 11/07/2018 DATE OF CONSULTATION: 11/14/2018 REASON FOR CONSULTATION: Left foot pain. REFERRING PROVIDER: Yasmeen Dempsey NP HISTORY OF PRESENT ILLNESS: This is an 83-year-old female with pain to the left foot. The patient i s a poor historian, but daughter states some pain for the last few days. Denies any injury. The pat ient has a pacemaker and MRI was recommended. X-rays had revealed hallux valgus deformity, mild subl uxation of the 4th metatarsophalangeal joint and scattered mid tarsal degenerative changes. Venous u ltrasound with no evidence of deep vein thrombosis. The patient had been admitted initially for naus ea, vomiting. PAST MEDICAL HISTORY: Hypertension, CHF, acute kidney injury on chronic kidney disease, colitis, rhe umatoid arthritis, hypothyroidism, history of pacemaker insertion, atrial fibrillation, dyslipidemia. MEDICATIONS: Include: 1. Cipro. 2. Metronidazole. PAST SURGICAL HISTORY: Status post pacemaker placement in 2014, low back surgery in 2008, status pos t bilateral cataract surgery. SOCIAL HISTORY: Denies any tobacco, alcohol use. PHYSICAL EXAMINATION: VITAL SIGNS: Temperature is 98, pulse is 99, respiratory rate 22, blood pressure 105/54, pulse oxime try is 96 on 2 liters nasal cannula. GENERAL: The patient is alert. HEENT: Wears dentures. Head is normocephalic. The patient IS obese. EXTREMITIES: Has a left foot hallux valgus. A 2+ DP, PT pulse. Erythema around the metatarsophalan geal joint. Pain with palpation. Edema to a level of mid foot. Extensor tendon is intact. Pain wi th passive range of motion of the 1st metatarsophalangeal joint. No puncture sites. No open ulcerat ions. No signs of blisters or abscess formation. DIAGNOSTIC DATA: X-rays: Hallux valgus deformity 1st metatarsophalangeal joint, mild subluxation of the 4th metatarsophalangeal joint, chronic scattered mid tarsal degenerative changes. LABORATORIES: WBC 7.8, hemoglobin 12.4, hematocrit 36.5, platelets 117. ASSESSMENT: 1. Left foot pain. 2. Left foot edema. 3. Arthritic 1st metatarsophalangeal joint with hallux valgus with underlying rheumatoid arthritis. PLAN: I reviewed radiographs. The patient is unable to have MRI due to pacemaker. If swelling pers ists, can perform puncture aspiration. Nursing recommendations were given in the interim. We will f dipti clinically while in-house. The patient is currently on antibiotics. Initiate topical antisept ic precautions to see if any local improvement. Dictated By: MACARIO ALMENDAREZ DPM RB/CHRISTIE Conf#: [id number] DID#: [id number] CC: ONOFRE GREGORIO DO; REJI KAUFFMAN MD;*EndCC*
[2018-11-15] VITALS (12 sets, daily range): BP systolic 95–123; BP diastolic 50–73; PULSE 99–115; RESP 18–20
[2018-11-15] MEDS: PANTOPRAZOLE (EC) 40 MG TAB PO SCH (05:51)
[2018-11-15] MEDS: BUMETANIDE 1 MG INJ IV SCH ×2 (05:51→17:27)
[2018-11-15] MEDS: LEVOTHYROXINE 25 MCG TAB PO SCH (05:51)
[2018-11-15] MEDS: METOPROLOL 100 MG TAB PO SCH (09:01)
[2018-11-15] MEDS: AMIODARONE 200 MG TAB PO SCH (09:02)
[2018-11-15] MEDS: CHOLECALCIFEROL 2,000 UNIT CAP PO SCH (09:02)
[2018-11-15] MEDS: EZETIMIBE 10 MG TAB PO SCH (09:03)
[2018-11-15] MEDS: ESCITALOPRAM 10 MG TAB PO SCH (09:03)
[2018-11-15] MEDS: MEGESTROL (40 MG/ML) 10ML CUP PO SCH ×2 (09:03→20:56)
[2018-11-15] MEDS: PSYLLIUM 28% PACKET PO SCH (09:03)
[2018-11-15] MEDS: DONEPEZIL 10 MG TAB PO SCH (09:03)
[2018-11-15] MEDS: POTASSIUM CHLORIDE (SR) 20 MEQ TAB PO SCH ×2 (09:04→20:56)
[2018-11-15] MEDS: APIXABAN 5 MG TABLET PO SCH ×2 (09:04→20:55)
[2018-11-15] MEDS: FOLIC ACID 1 MG TAB PO SCH (09:04)
--- NOTE | 2018-11-15 09:13 | PN ---
DATE: 11/15/2018 Nephrology followup note covering for Dr. Sal Juárez. SUBJECTIVE: The patient is stable overnight, no hemoptysis, hematemesis, hematochezia. OBJECTIVE: VITAL SIGNS: Blood pressure 123/73, respirations 20, pulse 100, temperature 98.9. HEENT: Head is normocephalic. NECK: Supple. HEART: Regular rate. LUNGS: Show diminished breath sounds at the base. ABDOMEN: Soft. Mild tenderness to palpation. EXTREMITIES: Negative for clubbing, cyanosis. Trace edema. DERMATOLOGIC: No rashes. MUSCULOSKELETAL: No joint effusions. NEUROLOGIC: No obvious focal deficits. MEDICATIONS: The patient's medications have been reviewed. LABORATORY DATA: Has been reviewed. IMAGING STUDIES: Have been reviewed. ASSESSMENT AND PLAN: 1. Nonoliguric acute kidney injury on top of chronic kidney disease stage III. Etiology is felt to be secondary to hemodynamics, possible cardiorenal syndrome. Renal function has been fluctuating, bu t overall improving on diuretic therapy. At this point, continue current treatment, supportive care. Renally dose all meds, continue diuretic therapy, monitor renal function, electrolytes closely. 2. Hypokalemia. Continue to monitor and replete. 3. Mixed acid base disorder. The patient has a metabolic alkalosis and respiratory alkalosis. Will continue to monitor closely. Correct underlying hypokalemia. Consider giving Diamox. 4. Mild anemia, monitor hemoglobin and hematocrit levels.. 5. Mineral bone disorder, monitor calcium and phosphorus levels. 6. Acute decompensated heart failure. Continue current management. Continue diuretic therapy. The patient appears near euvolemic status. 7. Hyponatremia secondary to congestive heart failure, improved. 8. Possible colitis. Continue current antibiotic regimen. 9. Atrial fibrillation. Continue current medical management. Follow up with cardiology. 10. Dyslipidemia. 11. Hypertension. Continue medical management. 12. History of rheumatoid arthritis. Continue to monitor. Dictated By: BEENA MEDINA DO NR/NTS Conf#: [id number] DID#: [id number] CC: REJI KAUFFMAN MD;*EndCC*
--- NOTE | 2018-11-15 12:03 | PN ---
Date/Time of Note Date/Time of Note DATE: 11/15/18 TIME: 11:55 Assessment/Plan VTE Prophylaxis Risk score (from Ns)>0 risk: 8 SCD applied (from Ns): Yes Pharmacological prophylaxis: apixaban Lines/Catheters IV Catheter Type (from Nrsg): Mid Line Central line still needed: Yes Urinary Cath still in place: Yes Reason Cath still needed: urinary retention Assessment/Plan Hospital Course Patient continues on Bumex drip with decrease in generalized edema, continues on supplemental oxygen without distress, able to tolerate diet. Assessment/Plan Acute decompensated systolic and diastolic congestive heart failure, continue diuretics per nephrology. -Hypokalemia, continue Klor-Con twice daily, monitor BMP. -Coagulopathy most likely to liver cirrhosis and vitamin K deficiency. Dr. Ramsay is following in hematology consultation. -Atrial fibrillation with initially rapid ventricular rates, improved, continue Eliquis and metoprolol. Dr Mayers is following in cardiology consultation. -Nausea vomiting and diarrhea for 2 days, resolved. Dr. Merchant is following in gastroenterology consultation. -Colitis per CT scan. S/p Levaquin and Flagyl. 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 Patient unable to undergo MRI due to pacemaker. Dr. Duque is following and podiatry consultation. -Hypertension, continue metoprolol Norvasc and Cozaar -PPM -Hypothyroidism -Rheumatoid arthritis Time spent with management of this patient and talking to family is 30 minutes. Further recommendations based on clinical course. Plan of care discussed with Dr. Rayo. Result Diagram: 11/13/18 0517 11/15/18 0557 Results 24hrs Laboratory Tests Test 11/15/18 05:57 Sodium Level 136 Potassium Level 3.3 L Chloride Level 91 L Carbon Dioxide Level 40 H Anion Gap 5 Blood Urea Nitrogen 31 H Creatinine 1.29 H Est Glomerular Filtrat Rate mL/min Glucose Level 89 # Calcium Level 7.2 L Exam/Review of Systems Exam Vitals Vital Signs Date Temp Pulse Resp B/P (MAP) Pulse Ox O2 O2 Flow FiO2 Time Delivery Rate 11/15/18 98.5 99 20 107/64 98 Nasal 10:57 (78) Cannula 11/15/18 2.0 07:17 Intake and Output 11/14/18 11/14/1811/15/19 1515:00 23:00 07:00 IntakeIntake Total 400 ml 930 ml 400 ml OutputOutput Total 2800 ml 2700 ml 1200 ml BalanceBalance -2400 ml -1770 ml -800 ml Exam Constitutional: alert, oriented Respiratory: clear to auscultation Cardiovascular: irregular rhythm, other (L chest PPM) Gastrointestinal: soft, non-tender Musculoskeletal: nl extremities to inspection Extremities: normal pulses Neurological: nl mental status Results Results 24hrs Laboratory Tests Test 11/15/18 05:57 Sodium Level 136 Potassium Level 3.3 L Chloride Level 91 L Carbon Dioxide Level 40 H Anion Gap 5 Blood Urea Nitrogen 31 H Creatinine 1.29 H Est Glomerular Filtrat Rate mL/min Glucose Level 89 # Calcium Level 7.2 L Medications Medication Current Medications Ciprofloxacin/ Dextrose 200 ml @ 200 mls/hr Q24H IVPB Last administered on 11/08/18 02:51; Admin Dose 200 MLS/HR; Start 11/08/18 at 03:00; Status Hold Metronidazole 100 ml @ 100 mls/hr Q8 IVPB Last administered on 11/07/18at 22:15; Admin Dose 100 MLS/HR; Start 11/07/18 at 14:00; Status Hold Acetaminophen (Tylenol Tab) 650 mg Q6H PRN PO MILD PAIN(1-3)OR ELEVATED TEMP Last administered on 11/12/18at 00:29; Admin Dose 650 MG; Start 11/07/18 at 10:00 Loperamide HCl (Imodium Cap) 2 mg QID PRN PO DIARRHEA Last administered on 11/09/18at 02:45; Admin Dose 2 MG; Start 11/07/18 at 10:30 Amiodarone HCl (Cordarone) 100 mg DAILY PO Last administered on 11/15/18 09:02; Admin Dose 100 MG; Start 11/08/18 at 09:00 Apixaban (Eliquis) 2.5 mg BID PO Last administered on 11/15/18 09:04; Admin Dose 2.5 MG; Start 11/07/18 at 12:00 Cholecalciferol (Vitamin D) 2,000 unit DAILY PO Last administered on 11/15/18 09:02; Admin Dose 2,000 UNIT; Start 11/08/18 at 09:00 Donepezil HCl (Aricept) 10 mg DAILY PO Last administered on 11/15/18 09:03; Admin Dose 10 MG; Start 11/08/18 at 09:00 Escitalopram Oxalate (Lexapro) 20 mg DAILY PO Last administered on 11/15/18 09:03; Admin Dose 20 MG; Start 11/08/18 at 09:00 EZETIMIBE (Zetia) 10 mg DAILY PO Last administered on 11/15/18 09:03; Admin Dose 10 MG; Start 11/08/18 at 09:00 Folic Acid (Folic Acid) 1 mg DAILY PO Last administered on 11/15/18 09:04; Admin Dose 1 MG; Start 11/08/18 at 09:00 Pantoprazole (Protonix Tab) 40 mg DAILY@06 PO Last administered on 11/15/18 05:51; Admin Dose 40 MG; Start 11/08/18 at 06:00 Levothyroxine Sodium (Synthroid) 25 mcg DAILY@0600 PO Last administered on 11/15/18 05:51; Admin Dose 25 MCG; Start 11/08/18 at 06:30 Metoprolol Tartrate (Lopressor) 100 mg BID PO Last administered on 11/15/18 09:01; Admin Dose 100 MG; Start 11/08/18 at 21:00 Ondansetron HCl (Zofran Inj) 4 mg Q6H PRN IV NAUSEA AND/OR VOMITING Last administered on 11/12/18 12:55; Admin Dose 4 MG; Start 11/08/18 at 10:30 Lorazepam (Ativan) 0.5 mg Q6H PRN PO ANXIETY Last administered on 11/11/18 23:18; Admin Dose 0.5 MG; Start 11/09/18 at 00:00 Psyllium Hydrophilic Mucilloid (Metamucil) 1 pkt DAILY PO Last administered on 11/15/18 09:03; Admin Dose 1 PKT; Start 11/10/18 at 09:00 Megestrol Acetate (Megace Susp) 400 mg BID PO Last administered on 11/15/18 09:03; Admin Dose 400 MG; Start 11/12/18 at 21:00 Phytonadione (Vitamin K) 5 mg DAILY PO Last administered on 11/14/18 09:08; Admin Dose 5 MG; Start 11/14/18 at 09:00; Stop 11/16/18 at 09:01 Bumetanide (Bumex) 1 mg BID DIURETICS IV Last administered on 11/15/18at 05:51; Admin Dose 1 MG; Start 11/14/18 at 10:00; Stop 11/16/18 at 12:00 Potassium Chloride (Klor-Con 20) 20 meq BID PO Last administered on 11/15/18at 09:04; Admin Dose 20 MEQ; Start 11/14/18 at 21:00 Bumetanide (Bumex) 1 mg BID DIURETICS PO ; Start 11/16/18 at 18:00 OSCAR GAYTAN Nov 15, 2018 12:03
[2018-11-15] MEDS: PHYTONADIONE (1 MG/ML PO SYG) PO SCH (12:09)
--- NOTE | 2018-11-15 13:26 | CONS ---
Assessment/Plan Cardiology NYHA: III Heart Failure Type: Acute on Chronic Heart Failure Type: Both Assessment/Plan Hospital Course (Demo Recall) Atrial fibrillation with initially rapid ventricular rates, improved Nausea, vomiting-resolved Acute decompensated systolic and diastolic congestive heart failure Acute kidney injury-improving Mitral and tricuspid valve regurgitation Possible colitis Hypertension Dyslipidemia History of pacemaker Heart rate trend overall stable Renal function improving Diuretics as per nephrology Potassium supplementation has already been ordered DC planning Consultation Date/Type/Reason Admit Date/Time Nov 07, 2018 at 12:41 Initial Consult Date Type of Consult Cardiology Requesting Provider: REJI KAUFFMAN MD Date/Time of Note DATE: 11/15/18 TIME: 13:25 24 HR Interval Summary Free Text/Dictation Denies shortness of breath, palpitations or chest pain. Complains of fatigue Exam/Review of Systems Vital Signs Vitals Vital Signs Date Temp Pulse Resp B/P (MAP) Pulse Ox O2 O2 Flow FiO2 Time Delivery Rate 11/15/18 98.5 99 20 107/64 98 Nasal 10:57 (78) Cannula 11/15/18 2.0 07:17 Intake and Output 11/14/18 11/14/18 11/15/18 1414:59 22:59 06:59 IntakeIntake Total 400 ml 930 ml 400 ml OutputOutput Total 2800 ml 2700 ml 1200 ml BalanceBalance -2400 ml -1770 ml -800 ml Exam Constitutional: alert, oriented (Sitting in chair, no apparent distress) Head: normocephalic Respiratory: other (Coarse breath sounds bilaterally, no wheezing) Cardiovascular: irregular rhythm, systolic murmur Gastrointestinal: soft, non-tender, bowel sounds Extremities: edema (Trace) Labs Result Diagram: 11/13/18 0517 11/15/18 0557 Results 24hrs Laboratory Tests Test 11/15/18 05:57 Sodium Level 136 Potassium Level 3.3 L Chloride Level 91 L Carbon Dioxide Level 40 H Anion Gap 5 Blood Urea Nitrogen 31 H Creatinine 1.29 H Est Glomerular Filtrat Rate mL/min Glucose Level 89 # Calcium Level 7.2 L Medications Medications Current Medications Ciprofloxacin/ Dextrose 200 ml @ 200 mls/hr Q24H IVPB Last administered on 11/08/18at 02:51; Admin Dose 200 MLS/HR; Start 11/08/18 at 03:00; Status Hold Metronidazole 100 ml @ 100 mls/hr Q8 IVPB Last administered on 11/07/18 22:15; Admin Dose 100 MLS/HR; Start 11/07/18 at 14:00; Status Hold Acetaminophen (Tylenol Tab) 650 mg Q6H PRN PO MILD PAIN(1-3)OR ELEVATED TEMP Last administered on 11/12/18 00:29; Admin Dose 650 MG; Start 11/07/18 at 10:00 Loperamide HCl (Imodium Cap) 2 mg QID PRN PO DIARRHEA Last administered on 11/09/18 02:45; Admin Dose 2 MG; Start 11/07/18 at 10:30 Amiodarone HCl (Cordarone) 100 mg DAILY PO Last administered on 11/15/18 09:02 ; Admin Dose 100 MG; Start 11/08/18 at 09:00 Apixaban (Eliquis) 2.5 mg BID PO Last administered on 11/15/18 09:04; Admin Dose 2.5 MG; Start 11/07/18 at 12:00 Cholecalciferol (Vitamin D) 2,000 unit DAILY PO Last administered on 11/15/18 09:02; Admin Dose 2,000 UNIT; Start 11/08/18 at 09:00 Donepezil HCl (Aricept) 10 mg DAILY PO Last administered on 11/15/18 09:03; Admin Dose 10 MG; Start 11/08/18 at 09:00 Escitalopram Oxalate (Lexapro) 20 mg DAILY PO Last administered on 11/15/18 09:03; Admin Dose 20 MG; Start 11/08/18 at 09:00 EZETIMIBE (Zetia) 10 mg DAILY PO Last administered on 11/15/18 09:03; Admin Dose 10 MG; Start 11/08/18 at 09:00 Folic Acid (Folic Acid) 1 mg DAILY PO Last administered on 11/15/18 09:04; Admin Dose 1 MG; Start 11/08/18 at 09:00 Pantoprazole (Protonix Tab) 40 mg DAILY@06 PO Last administered on 11/15/18 05:51; Admin Dose 40 MG; Start 11/08/18 at 06:00 Levothyroxine Sodium (Synthroid) 25 mcg DAILY@0600 PO Last administered on 11/15/18 05:51; Admin Dose 25 MCG; Start 11/08/18 at 06:30 Metoprolol Tartrate (Lopressor) 100 mg BID PO Last administered on 11/15/18 09:01; Admin Dose 100 MG; Start 11/08/18 at 21:00 Ondansetron HCl (Zofran Inj) 4 mg Q6H PRN IV NAUSEA AND/OR VOMITING Last administered on 11/12/18 12:55; Admin Dose 4 MG; Start 11/08/18 at 10:30 Lorazepam (Ativan) 0.5 mg Q6H PRN PO ANXIETY Last administered on 11/11/18 23:18; Admin Dose 0.5 MG; Start 11/09/18 at 00:00 Psyllium Hydrophilic Mucilloid (Metamucil) 1 pkt DAILY PO Last administered on 11/15/18 09:03; Admin Dose 1 PKT; Start 11/10/18 at 09:00 Megestrol Acetate (Megace Susp) 400 mg BID PO Last administered on 11/15/18 09:03; Admin Dose 400 MG; Start 11/12/18 at 21:00 Phytonadione (Vitamin K) 5 mg DAILY PO Last administered on 11/15/18 12:09; Admin Dose 5 MG; Start 11/14/18 at 09:00; Stop 11/16/18 at 09:01 Bumetanide (Bumex) 1 mg BID DIURETICS IV Last administered on 11/15/18 05:51; Admin Dose 1 MG; Start 11/14/18 at 10:00; Stop 11/16/18 at 12:00 Potassium Chloride (Klor-Con 20) 20 meq BID PO Last administered on 11/15/18 09:04; Admin Dose 20 MEQ; Start 11/14/18 at 21:00 Bumetanide (Bumex) 1 mg BID DIURETICS PO ; Start 11/16/18 at 18:00 Perico Mayers DO Nov 15, 2018 13:26
--- NOTE | 2018-11-15 16:31 | CONS ---
Assessment/Plan Assessment/Plan Hospital Course (Demo Recall) 83 yo female with N/V and diarrhea 1. Nausea, vomiting and diarrhea which have subsided now, most probably related to viral infection or of infectious etiology. 2. Atrial fibrillation for which she is on Eliquis. 3. Status post pacemaker insertion. 4. Dyslipidemia. 5. Hypothyroidism. 6. Hypertension. 7. Fatigue -likely due to depression -lexapro 8. Pedal edema pitting all the way up to knee, has reduced her drastically responded well to diuretics. 9. Coagulopathy may be cirrhosis of liver is contributing. 10. Abnormal LFT -trending up -patient CAT scan shows nodular liver which may be due to cirrhosis and also steatosis is playing a role -Hep panel unremarkable 11. Thrombocytopenia -followed by Dr Ramsay 12. Liver cirrhosis noted in CT scan -HEARD? -hep panel unremarkable. -hepatic autoimmune panel unremarkable Plan Continue Metamucil for constipation and incomplete evacuation Continue present care EGD once pt is stable Pt examined and plan of care discussed with Dr Merchant Consultation Date/Type/Reason Admit Date/Time Nov 07, 2018 at 12:41 Initial Consult Date 11/12/18 Requesting Provider: REJI KAUFFMAN MD Date/Time of Note DATE: 11/15/18 TIME: 16:28 24 HR Interval Summary Free Text/Dictation C/O black stool but pt is on Iron PO, HH is wnl and stable. Pt states burning pain in epigastric area improved. Exam/Review of Systems Exam Vitals Vital Signs Date Temp Pulse Resp B/P (MAP) Pulse Ox O2 O2 Flow FiO2 Time Delivery Rate 11/15/18 97.7 100 20 104/59 99 Nasal 15:31 (74) Cannula 11/15/18 2.0 07:17 Intake and Output 11/14/18 11/14/18 11/15/18 1515:00 23:00 07:00 IntakeIntake Total 400 ml 930 ml 400 ml OutputOutput Total 2800 ml 2700 ml 1200 ml BalanceBalance -2400 ml -1770 ml -800 ml Constitutional: alert, oriented Psych: no complaints Head: normocephalic Eyes: nl sclera, PERRL Respiratory: normal air movement Gastrointestinal: soft, non-tender Musculoskeletal: nl gait and stance Neurological: nl mental status Results Result Diagram: 11/13/18 0517 11/15/18 0557 Results 24hrs Laboratory Tests Test 11/15/18 05:57 Sodium Level 136 Potassium Level 3.3 L Chloride Level 91 L Carbon Dioxide Level 40 H Anion Gap 5 Blood Urea Nitrogen 31 H Creatinine 1.29 H Est Glomerular Filtrat Rate mL/min Glucose Level 89 # Calcium Level 7.2 L Medications Medication Current Medications Ciprofloxacin/ Dextrose 200 ml @ 200 mls/hr Q24H IVPB Last administered on 11/08/18 02:51; Admin Dose 200 MLS/HR; Start 11/08/18 at 03:00; Status Hold Metronidazole 100 ml @ 100 mls/hr Q8 IVPB Last administered on 11/07/18 22:15; Admin Dose 100 MLS/HR; Start 11/07/18 at 14:00; Status Hold Acetaminophen (Tylenol Tab) 650 mg Q6H PRN PO MILD PAIN(1-3)OR ELEVATED TEMP Last administered on 11/12/18 00:29; Admin Dose 650 MG; Start 11/07/18 at 10:00 Loperamide HCl (Imodium Cap) 2 mg QID PRN PO DIARRHEA Last administered on 11/09/18 02:45; Admin Dose 2 MG; Start 11/07/18 at 10:30 Amiodarone HCl (Cordarone) 100 mg DAILY PO Last administered on 11/15/18 09:02; Admin Dose 100 MG; Start 11/08/18 at 09:00 Apixaban (Eliquis) 2.5 mg BID PO Last administered on 11/15/18 09:04; Admin Dose 2.5 MG; Start 11/07/18 at 12:00 Cholecalciferol (Vitamin D) 2,000 unit DAILY PO Last administered on 11/15/18 09:02; Admin Dose 2,000 UNIT; Start 11/08/18 at 09:00 Donepezil HCl (Aricept) 10 mg DAILY PO Last administered on 11/15/18 09:03; Admin Dose 10 MG; Start 11/08/18 at 09:00 Escitalopram Oxalate (Lexapro) 20 mg DAILY PO Last administered on 11/15/18 09:03; Admin Dose 20 MG; Start 11/08/18 at 09:00 EZETIMIBE (Zetia) 10 mg DAILY PO Last administered on 11/15/18 09:03; Admin Dose 10 MG; Start 11/08/18 at 09:00 Folic Acid (Folic Acid) 1 mg DAILY PO Last administered on 11/15/18 09:04; Admin Dose 1 MG; Start 11/08/18 at 09:00 Pantoprazole (Protonix Tab) 40 mg DAILY@06 PO Last administered on 11/15/18 0 5:51; Admin Dose 40 MG; Start 11/08/18 at 06:00 Levothyroxine Sodium (Synthroid) 25 mcg DAILY@0600 PO Last administered on 11/15/18 05:51; Admin Dose 25 MCG; Start 11/08/18 at 06:30 Metoprolol Tartrate (Lopressor) 100 mg BID PO Last administered on 11/15/18 09:01; Admin Dose 100 MG; Start 11/08/18 at 21:00 Ondansetron HCl (Zofran Inj) 4 mg Q6H PRN IV NAUSEA AND/OR VOMITING Last administered on 11/12/18 12:55; Admin Dose 4 MG; Start 11/08/18 at 10:30 Lorazepam (Ativan) 0.5 mg Q6H PRN PO ANXIETY Last administered on 11/11/18 23:18; Admin Dose 0.5 MG; Start 11/09/18 at 00:00 Psyllium Hydrophilic Mucilloid (Metamucil) 1 pkt DAILY PO Last administered on 11/15/18 09:03; Admin Dose 1 PKT; Start 11/10/18 at 09:00 Megestrol Acetate (Megace Susp) 400 mg BID PO Last administered on 11/15/18 09:03; Admin Dose 400 MG; Start 11/12/18 at 21:00 Phytonadione (Vitamin K) 5 mg DAILY PO Last administered on 11/15/18 12:09; Admin Dose 5 MG; Start 11/14/18 at 09:00; Stop 11/16/18 at 09:01 Bumetanide (Bumex) 1 mg BID DIURETICS IV Last administered on 11/15/18 05:51; Admin Dose 1 MG; Start 11/14/18 at 10:00; Stop 11/16/18 at 12:00 Potassium Chloride (Klor-Con 20) 20 meq BID PO Last administered on 11/15/18 09:04; Admin Dose 20 MEQ; Start 11/14/18 at 21:00 Bumetanide (Bumex) 1 mg BID DIURETICS PO ; Start 11/16/18 at 18:00 HEATHER MEDRANO Nov 15, 2018 16:31
[2018-11-15] MEDS: METOPROLOL 50 MG TAB PO SCH (20:57)
[2018-11-16] VITALS (12 sets, daily range): BP systolic 100–143; BP diastolic 56–69; PULSE 79–114; RESP 18–20
[2018-11-16] MEDS: LEVOTHYROXINE 25 MCG TAB PO SCH (06:29)
[2018-11-16] MEDS: PANTOPRAZOLE (EC) 40 MG TAB PO SCH (06:29)
[2018-11-16] MEDS: APIXABAN 5 MG TABLET PO SCH ×2 (08:43→21:53)
[2018-11-16] MEDS: PSYLLIUM 28% PACKET PO SCH (08:43)
[2018-11-16] MEDS: MEGESTROL (40 MG/ML) 10ML CUP PO SCH ×2 (08:43→21:55)
[2018-11-16] MEDS: PHYTONADIONE (1 MG/ML PO SYG) PO SCH (08:43)
[2018-11-16] MEDS: AMIODARONE 200 MG TAB PO SCH (08:44)
[2018-11-16] MEDS: DONEPEZIL 10 MG TAB PO SCH (08:45)
[2018-11-16] MEDS: CHOLECALCIFEROL 2,000 UNIT CAP PO SCH (08:45)
[2018-11-16] MEDS: EZETIMIBE 10 MG TAB PO SCH (08:45)
[2018-11-16] MEDS: METOPROLOL 50 MG TAB PO SCH ×2 (08:46→21:55)
[2018-11-16] MEDS: FOLIC ACID 1 MG TAB PO SCH (08:47)
[2018-11-16] MEDS: ESCITALOPRAM 10 MG TAB PO SCH (08:47)
[2018-11-16] MEDS: POTASSIUM CHLORIDE (SR) 20 MEQ TAB PO SCH ×2 (08:47→21:53)
--- NOTE | 2018-11-16 09:05 | PN ---
DATE: 11/16/2018 SUBJECTIVE: The patient overnight was complaining of back pain. The patient's Nguyen catheter has bl ood tinged urine. OBJECTIVE: VITAL SIGNS: Blood pressure is 111/69, pulse 106, respirations 20, temperature 97.9. HEENT: Head is normocephalic. NECK: Supple. HEART: Regular rate. LUNGS: Show diminished breath sounds at the base. ABDOMEN: Soft, nontender to palpation without rebound or guarding. EXTREMITIES: Negative for clubbing, cyanosis, no edema. DERMATOLOGIC: No rashes. MUSCULOSKELETAL: No joint effusion. NEUROLOGIC: No change in exam. ASSESSMENT AND PLAN: 1. Nonoliguric acute kidney injury on top of chronic kidney disease stage III. Etiology is felt to be secondary to hemodynamics, possible cardiorenal syndrome. The patient's renal function has slowly been improving on diuretic therapy. We would continue current treatment plan. Continue supportive care, renally dose all medications. 2. Hypokalemia. Continue to monitor and replete as needed. 3. Mixed acid base disorder. Continue to monitor. 4. Mild hematuria, possibly due to Nguyen trauma. Continue to monitor. Consider discontinuing Nguyen catheter. 5. Anemia. Monitor hemoglobin and hematocrit levels. 6. Mineral bone disorder. Monitor calcium and phosphorus levels. 7. Decompensated heart failure. Continue current diuretic regimen. The patient appears to be near euvolemic status. 8. Hypernatremia, secondary to congestive heart failure, improved. 9. Possible colitis. Continue current antibiotic regimen. 10. Atrial fibrillation. Continue medical management. 11. History of rheumatoid arthritis. Continue to monitor. 12. Dyslipidemia. Dictated By: BEENA MEDINA DO NR/NTS Conf#: [id number] DID#: [id number] CC: REJI KAUFFMAN MD; ONOFRE GREGORIO DO;*EndCC*
[2018-11-16] MEDS ORDERED: MAGNESIUM SULFATE 2 GM/50 ML 50 ML IVPB ONE (11:00)
--- NOTE | 2018-11-16 11:00 | CONS ---
Assessment/Plan Cardiology NYHA: III Heart Failure Type: Acute on Chronic Heart Failure Type: Both Assessment/Plan Hospital Course (Demo Recall) Atrial fibrillation with initially rapid ventricular rates, improved Nausea, vomiting-resolved Acute decompensated systolic and diastolic congestive heart failure Acute kidney injury-improving Mitral and tricuspid valve regurgitation Possible colitis Hypertension Dyslipidemia History of pacemaker Patient's beta-carine dose was recently decreased, presumably secondary to blood pressure in the lower side. Patient's home dose of Lopressor was 100 mg twice daily Patient appears near euvolemic, would consider decreasing diuretics. Being titrated as per nephrology Will order magnesium supplementation Consultation Date/Type/Reason Admit Date/Time Nov 07, 2018 at 12:41 Initial Consult Date Type of Consult Cardiology Requesting Provider: REJI KAUFFMAN MD Date/Time of Note DATE: 11/16/18 TIME: 10:58 24 HR Interval Summary Free Text/Dictation Denies shortness of breath, palpitations. Complains of fatigue Exam/Review of Systems Vital Signs Vitals Vital Signs Date Temp Pulse Resp B/P (MAP) Pulse Ox O2 O2 Flow FiO2 Time Delivery Rate 11/16/18 106 08:22 11/16/18 Nasal 07:30 Cannula 11/16/18 97.9 20 111/69 96 07:28 (83) 11/15/18 2.0 21:00 Intake and Output 11/15/18 11/15/18 11/16/18 1515:00 23:00 07:00 IntakeIntake Total 600 ml 400 ml OutputOutput Total 1100 ml 300 ml BalanceBalance -500 ml 100 ml Exam Constitutional: alert, oriented (No apparent distress, sitting in chair) Head: normocephalic Respiratory: other (Coarse breath sounds bilaterally, no wheezing) Cardiovascular: irregular rhythm (S1-S2 heard) Gastrointestinal: soft, non-tender, bowel sounds Extremities: edema (Trace), other (Erythema left foot) Labs Result Diagram: 11/13/18 0517 11/16/18 0547 Results 24hrs Laboratory Tests Test 11/16/18 05:46 11/16/18 05:47 Prothrombin Time 15.7 #H Prothrombin Time Ratio 1.2 INR International Normalized Ratio 1.24 Activated Partial Thromboplast Time 28.2 Sodium Level 136 Potassium Level 4.8 Chloride Level 93 L Carbon Dioxide Level 35 H Anion Gap 8 Blood Urea Nitrogen 34 H Creatinine 1.37 H Est Glomerular Filtrat Rate mL/min Glucose Level 104 Calcium Level 7.8 L Phosphorus Level 3.0 Magnesium Level 1.8 Medications Medications Current Medications Ciprofloxacin/ Dextrose 200 ml @ 200 mls/hr Q24H IVPB Last administered on 11/08/18 02:51; Admin Dose 200 MLS/HR; Start 11/08/18 at 03:00; Status Hold Metronidazole 100 ml @ 100 mls/hr Q8 IVPB Last administered on 11/07/18 22:15; Admin Dose 100 MLS/HR; Start 11/07/18 at 14:00; Status Hold Acetaminophen (Tylenol Tab) 650 mg Q6H PRN PO MILD PAIN(1-3)OR ELEVATED TEMP Last administered on 11/12/18 00:29; Admin Dose 650 MG; Start 11/07/18 at 10:00 Loperamide HCl (Imodium Cap) 2 mg QID PRN PO DIARRHEA Last administered on 11/09/18 02:45; Admin Dose 2 MG; Start 11/07/18 at 10:30 Amiodarone HCl (Cordarone) 100 mg DAILY PO Last administered on 11/16/18 08:44; Admin Dose 100 MG; Start 11/08/18 at 09:00 Apixaban (Eliquis) 2.5 mg BID PO Last administered on 11/16/18 08:43; Admin Dose 2.5 MG; Start 11/07/18 at 12:00 Cholecalciferol (Vitamin D) 2,000 unit DAILY PO Last administered on 11/16/18 08:45; Admin Dose 2,000 UNIT; Start 11/08/18 at 09:00 Donepezil HCl (Aricept) 10 mg DAILY PO Last administered on 11/16/18 08:45; Admin Dose 10 MG; Start 11/08/18 at 09:00 Escitalopram Oxalate (Lexapro) 20 mg DAILY PO Last administered on 11/16/18 08:47; Admin Dose 20 MG; Start 11/08/18 at 09:00 EZETIMIBE (Zetia) 10 mg DAILY PO Last administered on 11/16/18 08:45; Admin Dose 10 MG; Start 11/08/18 at 09:00 Folic Acid (Folic Acid) 1 mg DAILY PO Last administered on 11/16/18 08:47; Admin Dose 1 MG; Start 11/08/18 at 09:00 Pantoprazole (Protonix Tab) 40 mg DAILY@06 PO Last administered on 11/16/18 06:29; Admin Dose 40 MG; Start 11/08/18 at 06:00 Levothyroxine Sodium (Synthroid) 25 mcg DAILY@0600 PO Last administered on 11/16/18 06:29; Admin Dose 25 MCG; Start 11/08/18 at 06:30 Ondansetron HCl (Zofran Inj) 4 mg Q6H PRN IV NAUSEA AND/OR VOMITING Last administered on 11/12/18 12:55; Admin Dose 4 MG; Start 11/08/18 at 10:30 Lorazepam (Ativan) 0.5 mg Q6H PRN PO ANXIETY Last administered on 11/11/18 23:18; Admin Dose 0.5 MG; Start 11/09/18 at 00:00 Psyllium Hydrophilic Mucilloid (Metamucil) 1 pkt DAILY PO Last administered on 11/16/18 08:43; Admin Dose 1 PKT; Start 11/10/18 at 09:00 Megestrol Acetate (Megace Susp) 400 mg BID PO Last administered on 11/16/18 08:43; Admin Dose 400 MG; Start 11/12/18 at 21:00 Potassium Chloride (Klor-Con 20) 20 meq BID PO Last administered on 11/16/18 08:47; Admin Dose 20 MEQ; Start 11/14/18 at 21:00 Bumetanide (Bumex) 1 mg BID DIURETICS PO ; Start 11/16/18 at 18:00 Metoprolol Tartrate (Lopressor) 50 mg BID PO Last administered on 11/16/18 08:46; Admin Dose 50 MG; Start 11/15/18 at 21:00 Perico Mayers DO Nov 16, 2018 11:00
[2018-11-16] MEDS ORDERED: MAGNESIUM SULFATE 2 GM/50 ML 50 ML ONE (12:12)
[2018-11-16] MEDS: CEFAZOLIN 1 GM/50 ML (PMX) 50 ML IVPB SCH (16:18)
[2018-11-16] MEDS: BUMETANIDE 1 MG TAB PO SCH (17:25)
--- NOTE | 2018-11-16 17:36 | CONS ---
Assessment/Plan Assessment/Plan Assessment/Plan (Daily) Assessment/Plan Hospital Course (Demo Recall) 83 yo female with N/V and diarrhea 1. Nausea, vomiting and diarrhea which have subsided now, most probably related to viral infection or of infectious etiology. 2. Atrial fibrillation 3. Status post pacemaker insertion. 4. Dyslipidemia. 5. Hypothyroidism. 6. Hypertension. 7. Fatigue -likely due to depression -lexapro 8. Pedal edema pitting all the way up to knee, has reduced her drastically responded well to diuretics. 9. Coagulopathy may be cirrhosis of liver is contributing. 10. Abnormal LFT -trending up -patient CAT scan shows nodular liver which may be due to cirrhosis and also steatosis is playing a role -Hep panel unremarkable 11. Thrombocytopenia -followed by Dr Ramsay 12. Liver cirrhosis noted in CT scan -HEARD? -hep panel unremarkable. -hepatic autoimmune panel unremarkable Plan Continue Metamucil for constipation and incomplete evacuation Continue present care EGD once pt is stable Consultation Date/Type/Reason Admit Date/Time Nov 07, 2018 at 12:41 Initial Consult Date Requesting Provider: REJI KAUFFMAN MD Date/Time of Note DATE: 11/16/18 TIME: 17:35 24 HR Interval Summary Free Text/Dictation complains of some nausea Constitutional: improved Exam/Review of Systems Exam Vitals Vital Signs Date Temp Pulse Resp B/P (MAP) Pulse Ox O2 O2 Flow FiO2 Time Delivery Rate 11/16/18 92 16:14 11/16/18 98.0 20 119/56 98 Nasal 16:01 (77) Cannula 11/15/18 2.0 21:00 Intake and Output 11/15/18 11/15/18 11/16/18 1515:00 23:00 07:00 IntakeIntake Total 600 ml 400 ml OutputOutput Total 1100 ml 300 ml BalanceBalance -500 ml 100 ml Constitutional: alert, oriented, well developed Psych: no complaints, nl mood/affect Head: normocephalic, atraumatic Eyes: nl conjunctiva, EOMI, nl lids, nl sclera, PERRL ENMT: nl external ears & nose, nl lips & teeth, nl nasal mucosa & septum Neck: supple, non-tender Respiratory: clear to auscultation, normal air movement Cardiovascular: regular rate and rhythm, nl pulses Gastrointestinal: soft, nl liver, spleen, non-tender Musculoskeletal: nl extremities to inspection, nl gait and stance Extremities: normal pulses, pitting pedal edema Neurological: [employer] MACHINE II-XII intact, nl mental status, nl speech, nl strength Skin: nl turgor; No rash or lesions Lymph: nl lymph nodes Results Result Diagram: 11/13/18 0517 11/16/18 0547 Results 24hrs Laboratory Tests Test 11/16/18 05:46 11/16/18 05:47 Prothrombin Time 15.7 #H Prothrombin Time Ratio 1.2 INR International Normalized Ratio 1.24 Activated Partial Thromboplast Time 28.2 Sodium Level 136 Potassium Level 4.8 Chloride Level 93 L Carbon Dioxide Level 35 H Anion Gap 8 Blood Urea Nitrogen 34 H Creatinine 1.37 H Est Glomerular Filtrat Rate mL/min Glucose Level 104 Calcium Level 7.8 L Phosphorus Level 3.0 Magnesium Level 1.8 Medications Medication Current Medications Ciprofloxacin/ Dextrose 200 ml @ 200 mls/hr Q24H IVPB Last administered on 11/08/18 02:51; Admin Dose 200 MLS/HR; Start 11/08/18 at 03:00; Status Hold Metronidazole 100 ml @ 100 mls/hr Q8 IVPB Last administered on 11/07/18at 22:15; Admin Dose 100 MLS/HR; Start 11/07/18 at 14:00; Status Hold Acetaminophen (Tylenol Tab) 650 mg Q6H PRN PO MILD PAIN(1-3)OR ELEVATED TEMP Last administered on 11/12/18at 00:29; Admin Dose 650 MG; Start 11/07/18 at 10:00 Loperamide HCl (Imodium Cap) 2 mg QID PRN PO DIARRHEA Last administered on 11/09/18 02:45; Admin Dose 2 MG; Start 11/07/18 at 10:30 Amiodarone HCl (Cordarone) 100 mg DAILY PO Last administered on 11/16/18 08:44; Admin Dose 100 MG; Start 11/08/18 at 09:00 Apixaban (Eliquis) 2.5 mg BID PO Last administered on 11/16/18 08:43; Admin Dose 2.5 MG; Start 11/07/18 at 12:00 Cholecalciferol (Vitamin D) 2,000 unit DAILY PO Last administered on 11/16/18 08:45; Admin Dose 2,000 UNIT; Start 11/08/18 at 09:00 Donepezil HCl (Aricept) 10 mg DAILY PO Last administered on 11/16/18 08:45; Admin Dose 10 MG; Start 11/08/18 at 09:00 Escitalopram Oxalate (Lexapro) 20 mg DAILY PO Last administered on 11/16/18 08:47; Admin Dose 20 MG; Start 11/08/18 at 09:00 EZETIMIBE (Zetia) 10 mg DAILY PO Last administered on 11/16/18 08:45; Admin Dose 10 MG; Start 11/08/18 at 09:00 Folic Acid (Folic Acid) 1 mg DAILY PO Last administered on 11/16/18 08:47; Admin Dose 1 MG; Start 11/08/18 at 09:00 Pantoprazole (Protonix Tab) 40 mg DAILY@06 PO Last administered on 11/16/18 06:29; Admin Dose 40 MG; Start 11/08/18 at 06:00 Levothyroxine Sodium (Synthroid) 25 mcg DAILY@0600 PO Last administered on 11/16/18 06:29; Admin Dose 25 MCG; Start 11/08/18 at 06:30 Ondansetron HCl (Zofran Inj) 4 mg Q6H PRN IV NAUSEA AND/OR VOMITING Last admi nistered on 11/12/18 12:55; Admin Dose 4 MG; Start 11/08/18 at 10:30 Lorazepam (Ativan) 0.5 mg Q6H PRN PO ANXIETY Last administered on 11/11/18 23:18; Admin Dose 0.5 MG; Start 11/09/18 at 00:00 Psyllium Hydrophilic Mucilloid (Metamucil) 1 pkt DAILY PO Last administered on 11/16/18 08:43; Admin Dose 1 PKT; Start 11/10/18 at 09:00 Megestrol Acetate (Megace Susp) 400 mg BID PO Last administered on 11/16/18 08:43; Admin Dose 400 MG; Start 11/12/18 at 21:00 Potassium Chloride (Klor-Con 20) 20 meq BID PO Last administered on 11/16/18 08:47; Admin Dose 20 MEQ; Start 11/14/18 at 21:00 Bumetanide (Bumex) 1 mg BID DIURETICS PO Last administered on 11/16/18 17:25; Admin Dose 1 MG; Start 11/16/18 at 18:00 Metoprolol Tartrate (Lopressor) 50 mg BID PO Last administered on 11/16/18at 08:46; Admin Dose 50 MG; Start 11/15/18 at 21:00 Cefazolin Sodium 50 ml @ 100 mls/hr Q12 IVPB Last administered on 11/16/18at 16:18; Admin Dose 100 MLS/HR; Start 11/16/18 at 16:00 TONY SHETTY MD Nov 16, 2018 17:36
[2018-11-17] VITALS (10 sets, daily range): BP systolic 108–129; BP diastolic 59–66; PULSE 88–112; RESP 18–20
[2018-11-17] MEDS: CEFAZOLIN 1 GM/50 ML (PMX) 50 ML IVPB SCH ×3 (00:49→21:11)
[2018-11-17] MEDS: PANTOPRAZOLE (EC) 40 MG TAB PO SCH (06:40)
[2018-11-17] MEDS: LEVOTHYROXINE 25 MCG TAB PO SCH (06:40)
[2018-11-17] MEDS: BUMETANIDE 1 MG TAB PO SCH ×2 (06:40→18:34)
[2018-11-17] MEDS: MEGESTROL (40 MG/ML) 10ML CUP PO SCH ×2 (08:20→21:10)
[2018-11-17] MEDS: ESCITALOPRAM 10 MG TAB PO SCH (08:22)
[2018-11-17] MEDS: POTASSIUM CHLORIDE (SR) 20 MEQ TAB PO SCH ×2 (08:22→21:11)
[2018-11-17] MEDS: EZETIMIBE 10 MG TAB PO SCH (08:23)
[2018-11-17] MEDS: AMIODARONE 200 MG TAB PO SCH (08:24)
[2018-11-17] MEDS: CHOLECALCIFEROL 2,000 UNIT CAP PO SCH (08:24)
[2018-11-17] MEDS: DONEPEZIL 10 MG TAB PO SCH (08:24)
[2018-11-17] MEDS: FOLIC ACID 1 MG TAB PO SCH (08:25)
[2018-11-17] MEDS: APIXABAN 5 MG TABLET PO SCH ×2 (08:25→21:11)
[2018-11-17] MEDS: PSYLLIUM 28% PACKET PO SCH (08:28)
[2018-11-17] MEDS: METOPROLOL 50 MG TAB PO SCH ×2 (09:00→21:10)
--- NOTE | 2018-11-17 09:42 | CONS ---
Assessment/Plan Cardiology NYHA: III Heart Failure Type: Acute on Chronic Heart Failure Type: Both Assessment/Plan Assessment/Plan (Daily) Atrial fibrillation with initially rapid ventricular rates, improved Nausea, vomiting-resolved Acute decompensated systolic and diastolic congestive heart failure Acute kidney injury-improving Mitral and tricuspid valve regurgitation Possible colitis Hypertension Dyslipidemia History of pacemaker Patient's beta-carine dose was recently decreased, presumably secondary to blood pressure in the lower side. Patient's home dose of Lopressor was 100 mg twice daily Patient appears near euvolemic, contiue po diuretics. Being titrated as per nephrology Consultation Date/Type/Reason Admit Date/Time Nov 07, 2018 at 12:41 Initial Consult Date 11/12/18 Type of Consult Cardiology Requesting Provider: REJI KAUFFMAN MD Date/Time of Note DATE: 11/17/18 TIME: 09:41 24 HR Interval Summary Free Text/Dictation the patient with no change Exam/Review of Systems Vital Signs Vitals Vital Signs Date Temp Pulse Resp B/P (MAP) Pulse Ox O2 O2 Flow FiO2 Time Delivery Rate 11/17/18 100 08:01 11/17/18 98.6 20 108/66 97 Room Air 07:35 (80) 11/15/18 2.0 21:00 Intake and Output 11/16/18 11/16/18 11/17/18 1414:59 22:59 06:59 IntakeIntake Total 400 ml OutputOutput Total 600 ml BalanceBalance -200 ml Labs Result Diagram: 11/13/18 0517 11/17/18 0523 Results 24hrs Laboratory Tests Test 11/16/18 16:00 11/17/18 05:23 Urine Color YELLOW Urine Clarity CLOUDY A Urine pH 5.0 Urine Specific [place] 1.018 Urine Ketones NEGATIVE Urine Nitrite NEGATIVE Urine Bilirubin NEGATIVE Urine Urobilinogen NEGATIVE Urine Leukocyte Esterase 1+ H Urine Microscopic RBC > 182 H Urine Microscopic WBC 91 H Urine Hemoglobin 3+ H Urine Glucose NEGATIVE Urine Total Protein 2+ H Sodium Level 133 L Potassium Level 3.8 Chloride Level 94 L Carbon Dioxide Level 35 H Anion Gap 4 L Blood Urea Nitrogen 28 H Creatinine 1.05 H Est Glomerular Filtrat Rate mL/min Glucose Level 145 # Uric Acid 9.4 H Calcium Level 7.7 L Medications Medications Current Medications Ciprofloxacin/ Dextrose 200 ml @ 200 mls/hr Q24H IVPB Last administered on 6/6/19at 02:51; Admin Dose 200 MLS/HR; Start 11/08/18 at 03:00; Status Hold Metronidazole 100 ml @ 100 mls/hr Q8 IVPB Last administered on 11/07/18 22:15; Admin Dose 100 MLS/HR; Start 11/07/18 at 14:00; Status Hold Acetaminophen (Tylenol Tab) 650 mg Q6H PRN PO MILD PAIN(1-3)OR ELEVATED TEMP Last administered on 11/12/18 00:29; Admin Dose 650 MG; Start 11/07/18 at 10:00 Loperamide HCl (Imodium Cap) 2 mg QID PRN PO DIARRHEA Last administered on 11/09/18 02:45; Admin Dose 2 MG; Start 11/07/18 at 10:30 Amiodarone HCl (Cordarone) 100 mg DAILY PO Last administered on 11/17/18 08:24; Admin Dose 100 MG; Start 11/08/18 at 09:00 Apixaban (Eliquis) 2.5 mg BID PO Last administered on 11/17/18 08:25; Admin Dose 2.5 MG; Start 11/07/18 at 12:00 Cholecalciferol (Vitamin D) 2,000 unit DAILY PO Last administered on 11/17/18 08:24; Admin Dose 2,000 UNIT; Start 11/08/18 at 09:00 Donepezil HCl (Aricept) 10 mg DAILY PO Last administered on 11/17/18 08:24; Admin Dose 10 MG; Start 11/08/18 at 09:00 Escitalopram Oxalate (Lexapro) 20 mg DAILY PO Last administered on 11/17/18 08:22; Admin Dose 20 MG; Start 11/08/18 at 09:00 EZETIMIBE (Zetia) 10 mg DAILY PO Last administered on 11/17/18 08:23; Admin Dose 10 MG; Start 11/08/18 at 09:00 Folic Acid (Folic Acid) 1 mg DAILY PO Last administered on 11/17/18 08:25; Admin Dose 1 MG; Start 11/08/18 at 09:00 Pantoprazole (Protonix Tab) 40 mg DAILY@06 PO Last administered on 11/17/18 06:40; Admin Dose 40 MG; Start 11/08/18 at 06:00 Levothyroxine Sodium (Synthroid) 25 mcg DAILY@0600 PO Last administered on 11/17/18 06:40; Admin Dose 25 MCG; Start 11/08/18 at 06:30 Ondansetron HCl (Zofran Inj) 4 mg Q6H PRN IV NAUSEA AND/OR VOMITING Last administered on 11/12/18 12:55; Admin Dose 4 MG; Start 11/08/18 at 10:30 Lorazepam (Ativan) 0.5 mg Q6H PRN PO ANXIETY Last administered on 11/11/18 23:18; Admin Dose 0.5 MG; Start 11/09/18 at 00:00 Psyllium Hydrophilic Mucilloid (Metamucil) 1 pkt DAILY PO Last administered on 11/17/18 08:28; Admin Dose 1 PKT; Start 11/10/18 at 09:00 Megestrol Acetate (Megace Susp) 400 mg BID PO Last administered on 11/17/18 08:20; Admin Dose 400 MG; Start 11/12/18 at 21:00 Potassium Chloride (Klor-Con 20) 20 meq BID PO Last administered on 11/17/18 08:22; Admin Dose 20 MEQ; Start 11/14/18 at 21:00 Bumetanide (Bumex) 1 mg BID DIURETICS PO Last administered on 11/17/18 06:40; Admin Dose 1 MG; Start 11/16/18 at 18:00 Metoprolol Tartrate (Lopressor) 50 mg BID PO Last administered on 11/16/18 21:55; Admin Dose 50 MG; Start 11/15/18 at 21:00 Cefazolin Sodium 50 ml @ 100 mls/hr Q12 IVPB Last administered on 11/17/18 08:26; Admin Dose 100 MLS/HR; Start 11/16/18 at 16:00 MALGORZATA TRISTAN MD Nov 17, 2018 09:42
--- NOTE | 2018-11-17 10:01 | CONS ---
Assessment/Plan Assessment/Plan Assessment/Plan (Daily) # Coagulopathy - pt is noted to have an elevated PT (26sec) and PTT(35 sec). - Today patient;s PTT is within normal limits. PT mixing study corrected. This essentially rules out a factor inhibitor. This makes the most likely cause of her coagulopathy her underlying cirrhosis and Vitamin K deficiency - on oral K 5mg po x 3 days - eliquis can be continued at this time, even though the INR is 2.1, since the INR may fluctuate with his every day diet. Moreover, pt is not bleeding with his elevated INR ane eliquis so I believe this can be continued. - Baseline INR - 2.41; INR 1.24 TODAY #Colitis -GI consulted -continue Ancef #JACKELIN on CKD -pt getting fluids per renal #CHF -pt on bumex #Afib -may continue eliquis as mentioned above #HTN -continue current BP meds #RA -on remicaid as an out patient Patient seen in collaboration with Dr Ramsay Consultation Date/Type/Reason Admit Date/Time Nov 07, 2018 at 12:41 Initial Consult Date 11/12/18 Type of Consult HEM/ONC Reason for Consultation COAGULOPATHY Requesting Provider: REJI KAUFFMAN MD Date/Time of Note DATE: 11/17/18 TIME: 09:58 24 HR Interval Summary Free Text/Dictation INR - 1.24 No bleeding reported Daughter at bed side- all Qs answered dw staff Constitutional: requiring O2 Detailed Summary Eyes: no complaints ENT: no complaints Respiratory: no complaints Cardiovascular: no complaints Genitourinary: no complaints Musculoskeletal: other (c/o generelized weakness) Exam/Review of Systems Exam Vitals Vital Signs Date Temp Pulse Resp B/P (MAP) Pulse Ox O2 O2 Flow FiO2 Time Delivery Rate 11/17/18 100 08:01 11/17/18 98.6 20 108/66 97 Room Air 07:35 (80) 11/15/18 2.0 21:00 Intake and Output 11/16/18 11/16/18 11/17/18 1515:00 23:00 07:00 IntakeIntake Total 400 ml OutputOutput Total 600 ml BalanceBalance -200 ml Constitutional: alert, well developed Psych: nl mood/affect Head: normocephalic Eyes: nl lids, nl sclera ENMT: nl external ears & nose Neck: non-tender Respiratory: clear to auscultation Cardiovascular: nl pulses, other (s1s2) Gastrointestinal: soft, non-tender Musculoskeletal: muscle weakness Extremities: edema (trace elisabeth BLE) Skin: nl turgor Lymph: nontender Results Result Diagram: 11/13/18 0517 11/17/18 0523 Results 24hrs Laboratory Tests Test 11/16/18 16:00 11/17/18 05:23 Urine Color YELLOW Urine Clarity CLOUDY A Urine pH 5.0 Urine Specific [place] 1.018 Urine Ketones NEGATIVE Urine Nitrite NEGATIVE Urine Bilirubin NEGATIVE Urine Urobilinogen NEGATIVE Urine Leukocyte Esterase 1+ H Urine Microscopic RBC > 182 H Urine Microscopic WBC 91 H Urine Hemoglobin 3+ H Urine Glucose NEGATIVE Urine Total Protein 2+ H Sodium Level 133 L Potassium Level 3.8 Chloride Level 94 L Carbon Dioxide Level 35 H Anion Gap 4 L Blood Urea Nitrogen 28 H Creatinine 1.05 H Est Glomerular Filtrat Rate mL/min Glucose Level 145 # Uric Acid 9.4 H Calcium Level 7.7 L Medications Medication Current Medications Ciprofloxacin/ Dextrose 200 ml @ 200 mls/hr Q24H IVPB Last administered on 11/08/18 02:51; Admin Dose 200 MLS/HR; Start 11/08/18 at 03:00; Status Hold Metronidazole 100 ml @ 100 mls/hr Q8 IVPB Last administered on 11/07/18at 22:15; Admin Dose 100 MLS/HR; Start 11/07/18 at 14:00; Status Hold Acetaminophen (Tylenol Tab) 650 mg Q6H PRN PO MILD PAIN(1-3)OR ELEVATED TEMP Last administered on 11/12/18at 00:29; Admin Dose 650 MG; Start 11/07/18 at 10:00 Loperamide HCl (Imodium Cap) 2 mg QID PRN PO DIARRHEA Last administered on 11/09/18 02:45; Admin Dose 2 MG; Start 11/07/18 at 10:30 Amiodarone HCl (Cordarone) 100 mg DAILY PO Last administered on 11/17/18 08:24; Admin Dose 100 MG; Start 11/08/18 at 09:00 Apixaban (Eliquis) 2.5 mg BID PO Last administered on 11/17/18 08:25; Admin Dose 2.5 MG; Start 11/07/18 at 12:00 Cholecalciferol (Vitamin D) 2,000 unit DAILY PO Last administered on 11/17/18 08:24; Admin Dose 2,000 UNIT; Start 11/08/18 at 09:00 Donepezil HCl (Aricept) 10 mg DAILY PO Last administered on 11/17/18 08:24; Admin Dose 10 MG; Start 11/08/18 at 09:00 Escitalopram Oxalate (Lexapro) 20 mg DAILY PO Last administered on 11/17/18 08:22; Admin Dose 20 MG; Start 11/08/18 at 09:00 EZETIMIBE (Zetia) 10 mg DAILY PO Last administered on 11/17/18 08:23; Admin Dose 10 MG; Start 11/08/18 at 09:00 Folic Acid (Folic Acid) 1 mg DAILY PO Last administered on 11/17/18 08:25; Admin Dose 1 MG; Start 11/08/18 at 09:00 Pantoprazole (Protonix Tab) 40 mg DAILY@06 PO Last administered on 11/17/18 06:40; Admin Dose 40 MG; Start 11/08/18 at 06:00 Levothyroxine Sodium (Synthroid) 25 mcg DAILY@0600 PO Last administered on 11/17/18 06:40; Admin Dose 25 MCG; Start 11/08/18 at 06:30 Ondansetron HCl (Zofran Inj) 4 mg Q6H PRN IV NAUSEA AND/OR VOMITING Last administered on 11/12/18 12:55; Admin Dose 4 MG; Start 11/08/18 at 10:30 Lorazepam (Ativan) 0.5 mg Q6H PRN PO ANXIETY Last administered on 11/11/18 23:18; Admin Dose 0.5 MG; Start 11/09/18 at 00:00 Psyllium Hydrophilic Mucilloid (Metamucil) 1 pkt DAILY PO Last administered on 11/17/18 08:28; Admin Dose 1 PKT; Start 11/10/18 at 09:00 Megestrol Acetate (Megace Susp) 400 mg BID PO Last administered on 11/17/18 08:20; Admin Dose 400 MG; Start 11/12/18 at 21:00 Potassium Chloride (Klor-Con 20) 20 meq BID PO Last administered on 11/17/18 08:22; Admin Dose 20 MEQ; Start 11/14/18 at 21:00 Bumetanide (Bumex) 1 mg BID DIURETICS PO Last administered on 11/17/18 06:40; Admin Dose 1 MG; Start 11/16/18 at 18:00 Metoprolol Tartrate (Lopressor) 50 mg BID PO Last administered on 11/16/18 21:55; Admin Dose 50 MG; Start 11/15/18 at 21:00 Cefazolin Sodium 50 ml @ 100 mls/hr Q12 IVPB Last administered on 11/17/18 08:26; Admin Dose 100 MLS/HR; Start 11/16/18 at 16:00 HOMERO ISAACS Nov 17, 2018 10:01
--- NOTE | 2018-11-17 10:16 | PN ---
Date/Time of Note Date/Time of Note DATE: 11/17/18 TIME: 10:15 Assessment/Plan VTE Prophylaxis Risk score (from [facility])>0 risk: 6 SCD applied (from [facility]): No SCD contraindicated: other Pharmacological prophylaxis: LMWH Lines/Catheters IV Catheter Type (from [facility]): Mid Line Urinary Cath still in place: Yes Reason Cath still needed: skin wounds contaminated by urine Assessment/Plan Hospital Course Acute decompensated systolic and diastolic congestive heart failure, continue diuretics per nephrology. -Hypokalemia, continue Klor-Con twice daily, monitor BMP. -Coagulopathy most likely to liver cirrhosis and vitamin K deficiency. Dr. Ramsay is following in hematology consultation. -Atrial fibrillation with initially rapid ventricular rates, improved, continue Eliquis and metoprolol. Dr Mayers is following in cardiology consultation. -Nausea vomiting and diarrhea for 2 days, resolved. Dr. Merchant is following in gastroenterology consultation. -Colitis per CT scan. S/p Levaquin and Flagyl. 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 Patient unable to undergo MRI due to pacemaker. Dr. Duque is following and podiatry consultation. -Hypertension, continue metoprolol Norvasc and Cozaar -PPM -Hypothyroidism -Rheumatoid arthritis Result Diagram: 11/13/18 0517 11/17/18 0523 Results 24hrs Laboratory Tests Test 11/16/18 16:00 11/17/18 05:23 Urine Color YELLOW Urine Clarity CLOUDY A Urine pH 5.0 Urine Specific [place] 1.018 Urine Ketones NEGATIVE Urine Nitrite NEGATIVE Urine Bilirubin NEGATIVE Urine Urobilinogen NEGATIVE Urine Leukocyte Esterase 1+ H Urine Microscopic RBC > 182 H Urine Microscopic WBC 91 H Urine Hemoglobin 3+ H Urine Glucose NEGATIVE Urine Total Protein 2+ H Sodium Level 133 L Potassium Level 3.8 Chloride Level 94 L Carbon Dioxide Level 35 H Anion Gap 4 L Blood Urea Nitrogen 28 H Creatinine 1.05 H Est Glomerular Filtrat Rate mL/min Glucose Level 145 # Uric Acid 9.4 H Calcium Level 7.7 L Subjective 24 Hr Interval Summary Free Text/Dictation Patient denies any abdominal pain, diarrhea Exam/Review of Systems Exam Vitals Vital Signs Date Temp Pulse Resp B/P (MAP) Pulse Ox O2 O2 Flow FiO2 Time Delivery Rate 11/17/18 100 08:01 11/17/18 98.6 20 108/66 97 Room Air 07:35 (80) 11/15/18 2.0 21:00 Intake and Output 11/16/18 11/16/18 11/17/18 1515:00 23:00 07:00 IntakeIntake Total 400 ml OutputOutput Total 600 ml BalanceBalance -200 ml Constitutional: well developed Head: normocephalic, atraumatic Neck: supple Respiratory: diminished breath sounds Cardiovascular: regular rate and rhythm Gastrointestinal: soft, non-tender Extremities: normal pulses Results Results 24hrs Laboratory Tests Test 11/16/18 16:00 11/17/18 05:23 Urine Color YELLOW Urine Clarity CLOUDY A Urine pH 5.0 Urine Specific [place] 1.018 Urine Ketones NEGATIVE Urine Nitrite NEGATIVE Urine Bilirubin NEGATIVE Urine Urobilinogen NEGATIVE Urine Leukocyte Esterase 1+ H Urine Microscopic RBC > 182 H Urine Microscopic WBC 91 H Urine Hemoglobin 3+ H Urine Glucose NEGATIVE Urine Total Protein 2+ H Sodium Level 133 L Potassium Level 3.8 Chloride Level 94 L Carbon Dioxide Level 35 H Anion Gap 4 L Blood Urea Nitrogen 28 H Creatinine 1.05 H Est Glomerular Filtrat Rate mL/min Glucose Level 145 # Uric Acid 9.4 H Calcium Level 7.7 L Medications Medication Current Medications Ciprofloxacin/ Dextrose 200 ml @ 200 mls/hr Q24H IVPB Last administered on 11/08/18 02:51; Admin Dose 200 MLS/HR; Start 11/08/18 at 03:00; Status Hold Metronidazole 100 ml @ 100 mls/hr Q8 IVPB Last administered on 11/07/18at 22:15; Admin Dose 100 MLS/HR; Start 11/07/18 at 14:00; Status Hold Acetaminophen (Tylenol Tab) 650 mg Q6H PRN PO MILD PAIN(1-3)OR ELEVATED TEMP Last administered on 11/12/18at 00:29; Admin Dose 650 MG; Start 11/07/18 at 10:00 Loperamide HCl (Imodium Cap) 2 mg QID PRN PO DIARRHEA Last administered on 11/09/18at 02:45; Admin Dose 2 MG; Start 11/07/18 at 10:30 Amiodarone HCl (Cordarone) 100 mg DAILY PO Last administered on 11/17/18at 08:24; Admin Dose 100 MG; Start 11/08/18 at 09:00 Apixaban (Eliquis) 2.5 mg BID PO Last administered on 11/17/18 08:25; Admin Dose 2.5 MG; Start 11/07/18 at 12:00 Cholecalciferol (Vitamin D) 2,000 unit DAILY PO Last administered on 11/17/18 08:24; Admin Dose 2,000 UNIT; Start 11/08/18 at 09:00 Donepezil HCl (Aricept) 10 mg DAILY PO Last administered on 11/17/18 08:24; Admin Dose 10 MG; Start 11/08/18 at 09:00 Escitalopram Oxalate (Lexapro) 20 mg DAILY PO Last administered on 11/17/18 08 :22; Admin Dose 20 MG; Start 11/08/18 at 09:00 EZETIMIBE (Zetia) 10 mg DAILY PO Last administered on 11/17/18 08:23; Admin Dose 10 MG; Start 11/08/18 at 09:00 Folic Acid (Folic Acid) 1 mg DAILY PO Last administered on 11/17/18 08:25; Admin Dose 1 MG; Start 11/08/18 at 09:00 Pantoprazole (Protonix Tab) 40 mg DAILY@06 PO Last administered on 11/17/18 06:40; Admin Dose 40 MG; Start 11/08/18 at 06:00 Levothyroxine Sodium (Synthroid) 25 mcg DAILY@0600 PO Last administered on 11/17/18 06:40; Admin Dose 25 MCG; Start 11/08/18 at 06:30 Ondansetron HCl (Zofran Inj) 4 mg Q6H PRN IV NAUSEA AND/OR VOMITING Last administered on 11/12/18 12:55; Admin Dose 4 MG; Start 11/08/18 at 10:30 Lorazepam (Ativan) 0.5 mg Q6H PRN PO ANXIETY Last administered on 11/11/18 23:18; Admin Dose 0.5 MG; Start 11/09/18 at 00:00 Psyllium Hydrophilic Mucilloid (Metamucil) 1 pkt DAILY PO Last administered on 11/17/18 08:28; Admin Dose 1 PKT; Start 11/10/18 at 09:00 Megestrol Acetate (Megace Susp) 400 mg BID PO Last administered on 11/17/18 08:20; Admin Dose 400 MG; Start 11/12/18 at 21:00 Potassium Chloride (Klor-Con 20) 20 meq BID PO Last administered on 11/17/18 08:22; Admin Dose 20 MEQ; Start 11/14/18 at 21:00 Bumetanide (Bumex) 1 mg BID DIURETICS PO Last administered on 11/17/18 06:40; Admin Dose 1 MG; Start 11/16/18 at 18:00 Metoprolol Tartrate (Lopressor) 50 mg BID PO Last administered on 11/16/18 21:55; Admin Dose 50 MG; Start 11/15/18 at 21:00 Cefazolin Sodium 50 ml @ 100 mls/hr Q12 IVPB Last administered on 11/17/18 08:26; Admin Dose 100 MLS/HR; Start 11/16/18 at 16:00 NUSRAT WADDELL Nov 17, 2018 10:16
--- NOTE | 2018-11-17 10:41 | PN ---
DATE: 11/16/2018 SUBJECTIVE: Follow up on acute decompensated systolic and diastolic heart failure, atrial fibrillati on, acute kidney injury, hypertension, dyslipidemia. The patient is complaining of left foot redness and pain. The patient did not have any fever or chills. Denies any chest pain. The patient does h ave improvement in edema and is also not orthopneic. No reported fever or chills. No reported abdom inal pain, no reported rectal bleed, no reported bleeding from any site. PHYSICAL EXAMINATION: GENERAL: The patient is awake, alert, follows simple commands. VITAL SIGNS: Temperature 98, pulse 92, respiration 20, blood pressure 119/56, O2 sat 98% on 2 liters nasal cannula. HEENT: Conjunctivae and lids normal. Oropharynx clear. NECK: Supple. No thyromegaly. Left jugular venous distention. CHEST: Diminished air entry at bases. No use of accessory muscles. CARDIOVASCULAR: Irregular rhythm. Variable S1. No murmur. ABDOMEN: Soft, nondistended, nontender. EXTREMITIES: Edema present, although less than before. Left foot is erythematous, swollen and mildl y tender. NEUROLOGIC: The patient is awake, alert, follows simple commands, has generalized weakness. LABORATORY DATA: Done today, sodium 136, creatinine 4.8, BUN 34, creatinine 1.3 up from 1.29, calciu m 7.8, glucose 104. Phosphorus 3, magnesium 1.8. IMPRESSION: 1. Possible left foot cellulitis. The patient will be started on IV Ancef. The patient also is com plaining of dysuria and wants her catheter out. Therefore we will discontinue catheter and will send urine STACKER ATTENDANT and will continue to monitor urine output closely. 2. Acute decompensated systolic and diastolic heart failure due to slight elevation in BUN and creat inine. Bumex has been changed to p.o. 3. Atrial fibrillation. Heart rate reasonably controlled with current dose of metoprolol. Continue amiodarone. The patient is tolerating liquids well for CVA prophylaxis. 4. Depression and memory impairment. Continue Aricept and Lexapro. 5. Hypothyroidism. Continue Synthroid, possibly related to amiodarone. Will need to adjust the dos e as necessary after and would need repeat of TSH as an outpatient. 6. Possible cirrhosis of the liver. Patient has coagulopathy and mild thrombocytopenia. Coagulatio n profile done this morning revealed INR to be 1.2, down from 2.1. 7. Left foot cellulitis. The patient will be started on IV Ancef. Will obtain procalcitonin level. X-ray done recently revealed scattered mid tarsal degenerative changes, otherwise unremarkable. 8. Acute on chronic kidney disease. Creatinine seems to be stable in the past 48 hours, it peaked t o 2.56 on 11/11/2018. Plan of care discussed with patient's daughter. We will continue to follow. Dictated By: REJI VILLARREAL/CHRISTIE Conf#: [id number] DID#: [id number]
--- NOTE | 2018-11-17 13:36 | CONS ---
Assessment/Plan Assessment/Plan Hospital Course (Demo Recall) 1. Nonoliguric acute kidney injury on top of chronic kidney disease stage III. Etiology is felt to be secondary to hemodynamics, possible cardiorenal syndrome. The patient's renal function has slowly been improving on diuretic therapy. We would continue current treatment plan. Continue supportive care, renally dose all medications. 2. Hyponatremia: monitor Na 3. Mixed acid base disorder. Continue to monitor. 4. Mild hematuria, possibly due to Nguyen trauma. Continue to monitor. C onsider discontinuing Nguyen catheter. 5. Anemia. Monitor hemoglobin and hematocrit levels. 6. Mineral bone disorder. Monitor calcium and phosphorus levels. 7. Decompensated heart failure. Continue current diuretic regimen. The patient appears to be near euvolemic status. 8. Hypernatremia, secondary to congestive heart failure, improved. 9. Possible colitis. Continue current antibiotic regimen. 10. Atrial fibrillation. Continue medical management. 11. History of rheumatoid arthritis. Continue to monitor. 12. Dyslipidemia. Consultation Date/Type/Reason Admit Date/Time Nov 07, 2018 at 12:41 Initial Consult Date 11/12/18 Requesting Provider: REJI KAUFFMAN MD Date/Time of Note DATE: 11/17/18 TIME: 13:34 24 HR Interval Summary Free Text/Dictation denies n/v, shortness of breath or urinary issues d/w rn gen nad cv rrr pulm ctab abd soft, nd ,nt +bs ext: no edema Exam/Review of Systems Exam Vitals Vital Signs Date Temp Pulse Resp B/P (MAP) Pulse Ox O2 O2 Flow FiO2 Time Delivery Rate 11/17/18 106 12:01 11/17/18 98.0 20 114/63 97 11:01 (80) 11/17/18 Nasal 08:00 Cannula 11/15/18 2.0 21:00 Intake and Output 11/16/18 11/16/18 11/17/18 1515:00 23:00 07:00 IntakeIntake Total 400 ml OutputOutput Total 600 ml BalanceBalance -200 ml Results Result Diagram: 11/13/18 0517 11/17/18 0523 Results 24hrs Laboratory Tests Test 11/16/18 16:00 11/17/18 05:23 Urine Color YELLOW Urine Clarity CLOUDY A Urine pH 5.0 Urine Specific [place] 1.018 Urine Ketones NEGATIVE Urine Nitrite NEGATIVE Urine Bilirubin NEGATIVE Urine Urobilinogen NEGATIVE Urine Leukocyte Esterase 1+ H Urine Microscopic RBC > 182 H Urine Microscopic WBC 91 H Urine Hemoglobin 3+ H Urine Glucose NEGATIVE Urine Total Protein 2+ H Sodium Level 133 L Potassium Level 3.8 Chloride Level 94 L Carbon Dioxide Level 35 H Anion Gap 4 L Blood Urea Nitrogen 28 H Creatinine 1.05 H Est Glomerular Filtrat Rate mL/min Glucose Level 145 # Uric Acid 9.4 H Calcium Level 7.7 L Medications Medication Current Medications Ciprofloxacin/ Dextrose 200 ml @ 200 mls/hr Q24H IVPB Last administered on 11/08/18 02:51; Admin Dose 200 MLS/HR; Start 11/08/18 at 03:00; Status Hold Metronidazole 100 ml @ 100 mls/hr Q8 IVPB Last administered on 11/07/18 22:15; Admin Dose 100 MLS/HR; Start 11/07/18 at 14:00; Status Hold Acetaminophen (Tylenol Tab) 650 mg Q6H PRN PO MILD PAIN(1-3)OR ELEVATED TEMP Last administered on 11/12/18 00:29; Admin Dose 650 MG; Start 11/07/18 at 10:00 Loperamide HCl (Imodium Cap) 2 mg QID PRN PO DIARRHEA Last administered on 11/09/18 02:45; Admin Dose 2 MG; Start 11/07/18 at 10:30 Amiodarone HCl (Cordarone) 100 mg DAILY PO Last administered on 11/17/18 08:24; Admin Dose 100 MG; Start 11/08/18 at 09:00 Apixaban (Eliquis) 2.5 mg BID PO Last administered on 11/17/18 08:25; Admin Dose 2.5 MG; Start 11/07/18 at 12:00 Cholecalciferol (Vitamin D) 2,000 unit DAILY PO Last administered on 11/17/18 08:24; Admin Dose 2,000 UNIT; Start 11/08/18 at 09:00 Donepezil HCl (Aricept) 10 mg DAILY PO Last administered on 11/17/18 08:24; Admin Dose 10 MG; Start 11/08/18 at 09:00 Escitalopram Oxalate (Lexapro) 20 mg DAILY PO Last administered on 11/17/18 08:22; Admin Dose 20 MG; Start 11/08/18 at 09:00 EZETIMIBE (Zetia) 10 mg DAILY PO Last administered on 11/17/18 08:23; Admin Dose 10 MG; Start 11/08/18 at 09:00 Folic Acid (Folic Acid) 1 mg DAILY PO Last administered on 11/17/18 08:25; Admin Dose 1 MG; Start 11/08/18 at 09:00 Pantoprazole (Protonix Tab) 40 mg DAILY@06 PO Last administered on 11/17/18 06:40; Admin Dose 40 MG; Start 11/08/18 at 06:00 Levothyroxine Sodium (Synthroid) 25 mcg DAILY@0600 PO Last administered on 11/17/18 06:40; Admin Dose 25 MCG; Start 11/08/18 at 06:30 Ondansetron HCl (Zofran Inj) 4 mg Q6H PRN IV NAUSEA AND/OR VOMITING Last administered on 11/12/18 12:55; Admin Dose 4 MG; Start 11/08/18 at 10:30 Lorazepam (Ativan) 0.5 mg Q6H PRN PO ANXIETY Last administered on 11/11/18 23:18; Admin Dose 0.5 MG; Start 11/09/18 at 00:00 Psyllium Hydrophilic Mucilloid (Metamucil) 1 pkt DAILY PO Last administered on 11/17/18 08:28; Admin Dose 1 PKT; Start 11/10/18 at 09:00 Megestrol Acetate (Megace Susp) 400 mg BID PO Last administered on 11/17/18 08:20; Admin Dose 400 MG; Start 11/12/18 at 21:00 Potassium Chloride (Klor-Con 20) 20 meq BID PO Last administered on 11/17/18 08:22; Admin Dose 20 MEQ; Start 11/14/18 at 21:00 Bumetanide (Bumex) 1 mg BID DIURETICS PO Last administered on 11/17/18 06:40; Admin Dose 1 MG; Start 11/16/18 at 18:00 Metoprolol Tartrate (Lopressor) 50 mg BID PO Last administered on 11/16/18 21:55; Admin Dose 50 MG; Start 11/15/18 at 21:00 Cefazolin Sodium 50 ml @ 100 mls/hr Q12 IVPB Last administered on 11/17/18at 08:26; Admin Dose 100 MLS/HR; Start 11/16/18 at 16:00 FELIPE BREAUX MD Nov 17, 2018 13:36
--- NOTE | 2018-11-17 15:42 | CONS ---
Assessment/Plan Assessment/Plan Assessment/Plan (Daily) Hospital Course (Demo Recall) 83 yo female with N/V and diarrhea 1. Nausea, vomiting and diarrhea which have subsided now, most probably related to viral infection or of infectious etiology. 2. Atrial fibrillation 3. Status post pacemaker insertion. 4. Dyslipidemia. 5. Hypothyroidism. 6. Hypertension. 7. Fatigue -likely due to depression -lexapro 8. Pedal edema pitting all the way up to knee, has reduced her drastically responded well to diuretics. 9. Coagulopathy may be cirrhosis of liver is contributing. 10. Abnormal LFT -trending up -patient CAT scan shows nodular liver which may be due to cirrhosis and also steatosis is playing a role -Hep panel unremarkable 11. Thrombocytopenia -followed by Dr Ramsay 12. Liver cirrhosis noted in CT scan -HEARD? -hep panel unremarkable. -hepatic autoimmune panel unremarkable Plan Continue Metamucil for constipation and incomplete evacuation Continue present care Consultation Date/Type/Reason Admit Date/Time Nov 07, 2018 at 12:41 Initial Consult Date Requesting Provider: REJI KAUFFMAN MD Date/Time of Note DATE: 11/17/18 TIME: 15:41 24 HR Interval Summary Free Text/Dictation No nausea no vomiting no abdominal pain Constitutional: improved Exam/Review of Systems Exam Vitals Vital Signs Date Temp Pulse Resp B/P (MAP) Pulse Ox O2 O2 Flow FiO2 Time Delivery Rate 11/17/18 106 12:01 11/17/18 98.0 20 114/63 97 11:01 (80) 11/17/18 Nasal 08:00 Cannula 11/15/18 2.0 21:00 Intake and Output 11/16/18 11/16/18 11/17/18 1414:59 22:59 06:59 IntakeIntake Total 400 ml OutputOutput Total 600 ml BalanceBalance -200 ml Constitutional: alert, oriented, well developed Psych: no complaints, nl mood/affect Head: normocephalic, atraumatic Eyes: nl conjunctiva, EOMI, nl lids, nl sclera, PERRL ENMT: nl external ears & nose, nl lips & teeth, nl nasal mucosa & septum Neck: supple, non-tender Respiratory: clear to auscultation, normal air movement Cardiovascular: regular rate and rhythm, nl pulses Gastrointestinal: soft, nl liver, spleen, non-tender Musculoskeletal: nl extremities to inspection, nl gait and stance Extremities: normal pulses Neurological: AVIONICS ENGINEER II-XII intact, nl mental status, nl speech, nl strength Skin: nl turgor; No rash or lesions Lymph: nl lymph nodes Results Result Diagram: 11/13/18 0517 11/17/18 0523 Results 24hrs Laboratory Tests Test 11/16/18 16:00 11/17/18 05:23 Urine Color YELLOW Urine Clarity CLOUDY A Urine pH 5.0 Urine Specific [place] 1.018 Urine Ketones NEGATIVE Urine Nitrite NEGATIVE Urine Bilirubin NEGATIVE Urine Urobilinogen NEGATIVE Urine Leukocyte Esterase 1+ H Urine Microscopic RBC > 182 H Urine Microscopic WBC 91 H Urine Hemoglobin 3+ H Urine Glucose NEGATIVE Urine Total Protein 2+ H Sodium Level 133 L Potassium Level 3.8 Chloride Level 94 L Carbon Dioxide Level 35 H Anion Gap 4 L Blood Urea Nitrogen 28 H Creatinine 1.05 H Est Glomerular Filtrat Rate mL/min Glucose Level 145 # Uric Acid 9.4 H Calcium Level 7.7 L Medications Medication Current Medications Ciprofloxacin/ Dextrose 200 ml @ 200 mls/hr Q24H IVPB Last administered on 11/08/18at 02:51; Admin Dose 200 MLS/HR; Start 11/08/18 at 03:00; Status Hold Metronidazole 100 ml @ 100 mls/hr Q8 IVPB Last administered on 11/07/18at 22:15; Admin Dose 100 MLS/HR; Start 11/07/18 at 14:00; Status Hold Acetaminophen (Tylenol Tab) 650 mg Q6H PRN PO MILD PAIN(1-3)OR ELEVATED TEMP Last administered on 11/12/18at 00:29; Admin Dose 650 MG; Start 11/07/18 at 10:00 Loperamide HCl (Imodium Cap) 2 mg QID PRN PO DIARRHEA Last administered on 11/09/18at 02:45; Admin Dose 2 MG; Start 11/07/18 at 10:30 Amiodarone HCl (Cordarone) 100 mg DAILY PO Last administered on 11/17/18at 08:24; Admin Dose 100 MG; Start 11/08/18 at 09:00 Apixaban (Eliquis) 2.5 mg BID PO Last administered on 11/17/18at 08:25; Admin Dose 2.5 MG; Start 11/07/18 at 12:00 Cholecalciferol (Vitamin D) 2,000 unit DAILY PO Last administered on 11/17/18 08:24; Admin Dose 2,000 UNIT; Start 11/08/18 at 09:00 Donepezil HCl (Aricept) 10 mg DAILY PO Last administered on 11/17/18 08:24; Admin Dose 10 MG; Start 11/08/18 at 09:00 Escitalopram Oxalate (Lexapro) 20 mg DAILY PO Last administered on 11/17/18 08:22; Admin Dose 20 MG; Start 11/08/18 at 09:00 EZETIMIBE (Zetia) 10 mg DAILY PO Last administered on 11/17/18 08:23; Admin Dose 10 MG; Start 11/08/18 at 09:00 Folic Acid (Folic Acid) 1 mg DAILY PO Last administered on 11/17/18 08:25; Admin Dose 1 MG; Start 11/08/18 at 09:00 Pantoprazole (Protonix Tab) 40 mg DAILY@06 PO Last administered on 11/17/18 06:40; Admin Dose 40 MG; Start 11/08/18 at 06:00 Levothyroxine Sodium (Synthroid) 25 mcg DAILY@0600 PO Last administered on 11/17/18 06:40; Admin Dose 25 MCG; Start 11/08/18 at 06:30 Ondansetron HCl (Zofran Inj) 4 mg Q6H PRN IV NAUSEA AND/OR VOMITING Last administered on 11/12/18 12:55; Admin Dose 4 MG; Start 11/08/18 at 10:30 Lorazepam (Ativan) 0.5 mg Q6H PRN PO ANXIETY Last administered on 11/11/18 23:18; Admin Dose 0.5 MG; Start 11/09/18 at 00:00 Psyllium Hydrophilic Mucilloid (Metamucil) 1 pkt DAILY PO Last administered on 11/17/18 08:28; Admin Dose 1 PKT; Start 11/10/18 at 09:00 Megestrol Acetate (Megace Susp) 400 mg BID PO Last administered on 11/17/18 08:20; Admin Dose 400 MG; Start 11/12/18 at 21:00 Potassium Chloride (Klor-Con 20) 20 meq BID PO Last administered on 11/17/18 08:22; Admin Dose 20 MEQ; Start 11/14/18 at 21:00 Bumetanide (Bumex) 1 mg BID DIURETICS PO Last administered on 11/17/18at 06:40; Admin Dose 1 MG; Start 11/16/18 at 18:00 Metoprolol Tartrate (Lopressor) 50 mg BID PO Last administered on 11/16/18at 21:55; Admin Dose 50 MG; Start 11/15/18 at 21:00 Cefazolin Sodium 50 ml @ 100 mls/hr Q12 IVPB Last administered on 11/17/18at 08:26; Admin Dose 100 MLS/HR; Start 11/16/18 at 16:00 TONY SHETTY MD Nov 17, 2018 15:42
[2018-11-17] MEDS: LORAZEPAM 0.5 MG TAB PO PRN (21:13)
[2018-11-18] VITALS (10 sets, daily range): BP systolic 101–133; BP diastolic 53–73; PULSE 82–108; RESP 16–20
[2018-11-18] MEDS: BUMETANIDE 1 MG TAB PO SCH ×2 (06:11→18:08)
[2018-11-18] MEDS: LEVOTHYROXINE 25 MCG TAB PO SCH (06:11)
[2018-11-18] MEDS: PANTOPRAZOLE (EC) 40 MG TAB PO SCH (06:11)
[2018-11-18] MEDS: MEGESTROL (40 MG/ML) 10ML CUP PO SCH ×2 (08:32→20:35)
[2018-11-18] MEDS: FOLIC ACID 1 MG TAB PO SCH (08:36)
[2018-11-18] MEDS: AMIODARONE 200 MG TAB PO SCH (08:37)
[2018-11-18] MEDS: POTASSIUM CHLORIDE (SR) 20 MEQ TAB PO SCH ×2 (08:38→20:36)
[2018-11-18] MEDS: ESCITALOPRAM 10 MG TAB PO SCH (08:38)
[2018-11-18] MEDS: CHOLECALCIFEROL 2,000 UNIT CAP PO SCH (08:39)
[2018-11-18] MEDS: EZETIMIBE 10 MG TAB PO SCH (08:39)
[2018-11-18] MEDS: APIXABAN 5 MG TABLET PO SCH ×2 (08:40→20:36)
[2018-11-18] MEDS: DONEPEZIL 10 MG TAB PO SCH (08:40)
[2018-11-18] MEDS: METOPROLOL 50 MG TAB PO SCH ×2 (08:41→20:36)
[2018-11-18] MEDS: CEFAZOLIN 1 GM/50 ML (PMX) 50 ML IVPB SCH ×2 (08:42→20:37)
[2018-11-18] MEDS: PSYLLIUM 28% PACKET PO SCH (08:45)
--- NOTE | 2018-11-18 10:43 | PN ---
Date/Time of Note Date/Time of Note DATE: 11/18/18 TIME: 10:43 Assessment/Plan VTE Prophylaxis Risk score (from [facility])>0 risk: 4 SCD applied (from [facility]): No SCD contraindicated: other Pharmacological prophylaxis: LMWH Lines/Catheters IV Catheter Type (from [facility]): Mid Line Urinary Cath still in place: No Assessment/Plan Hospital Course Acute decompensated systolic and diastolic congestive heart failure, continue diuretics per nephrology. -Hypokalemia, continue Klor-Con twice daily, monitor BMP. -Coagulopathy most likely to liver cirrhosis and vitamin K deficiency. Dr. Ramsay is following in hematology consultation. -Atrial fibrillation with initially rapid ventricular rates, improved, continue Eliquis and metoprolol. Dr Mayers is following in cardiology consultation. -Nausea vomiting and diarrhea for 2 days, resolved. Dr. Merchant is following in gastroenterology consultation. -Colitis per CT scan. S/p Levaquin and Flagyl. 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 Patient unable to undergo MRI due to pacemaker. Dr. Duque is following and podiatry consultation. -Hypertension, continue metoprolol Norvasc and Cozaar -PPM -Hypothyroidism -Rheumatoid arthritis Result Diagram: 11/18/18 0444 Results 24hrs Laboratory Tests Test 11/18/18 04:44 Sodium Level 135 Potassium Level 4.4 Chloride Level 94 L Carbon Dioxide Level 35 H Anion Gap 6 Blood Urea Nitrogen 27 H Creatinine 1.09 H Est Glomerular Filtrat Rate mL/min Glucose Level 102 # Calcium Level 7.9 L Subjective 24 Hr Interval Summary Free Text/Dictation Patient denies shortness of breath but states has moderate fatigue with exertion Exam/Review of Systems Exam Vitals Vital Signs Date Temp Pulse Resp B/P (MAP) Pulse Ox O2 O2 Flow FiO2 Time Delivery Rate 11/18/18 103 08:01 11/18/18 97.6 20 131/70 98 Room Air 07:24 (90) 11/15/18 2.0 21:00 Intake and Output 11/17/18 11/17/18 11/18/18 1515:00 23:00 07:00 IntakeIntake Total 50 ml 500 ml 550 ml OutputOutput Total 700 ml BalanceBalance 50 ml 500 ml -150 ml Constitutional: well developed Head: normocephalic, atraumatic Neck: supple Respiratory: diminished breath sounds Cardiovascular: regular rate and rhythm Gastrointestinal: soft, non-tender Extremities: normal pulses Results Results 24hrs Laboratory Tests Test 11/18/18 04:44 Sodium Level 135 Potassium Level 4.4 Chloride Level 94 L Carbon Dioxide Level 35 H Anion Gap 6 Blood Urea Nitrogen 27 H Creatinine 1.09 H Est Glomerular Filtrat Rate mL/min Glucose Level 102 # Calcium Level 7.9 L Medications Medication Current Medications Ciprofloxacin/ Dextrose 200 ml @ 200 mls/hr Q24H IVPB Last administered on 11/08/18 02:51; Admin Dose 200 MLS/HR; Start 11/08/18 at 03:00; Status Hold Metronidazole 100 ml @ 100 mls/hr Q8 IVPB Last administered on 11/07/18 22:15; Admin Dose 100 MLS/HR; Start 11/07/18 at 14:00; Status Hold Acetaminophen (Tylenol Tab) 650 mg Q6H PRN PO MILD PAIN(1-3)OR ELEVATED TEMP Last administered on 11/12/18 00:29; Admin Dose 650 MG; Start 11/07/18 at 10:00 Loperamide HCl (Imodium Cap) 2 mg QID PRN PO DIARRHEA Last administered on 11/09/18 02:45; Admin Dose 2 MG; Start 11/07/18 at 10:30 Amiodarone HCl (Cordarone) 100 mg DAILY PO Last administered on 11/18/18 08:37; Admin Dose 100 MG; Start 11/08/18 at 09:00 Apixaban (Eliquis) 2.5 mg BID PO Last administered on 11/18/18 08:40; Admin Dose 2.5 MG; Start 11/07/18 at 12:00 Cholecalciferol (Vitamin D) 2,000 unit DAILY PO Last administered on 11/18/18 08:39; Admin Dose 2,000 UNIT; Start 11/08/18 at 09:00 Donepezil HCl (Aricept) 10 mg DAILY PO Last administered on 11/18/18 08:40; Admin Dose 10 MG; Start 11/08/18 at 09:00 Escitalopram Oxalate (Lexapro) 20 mg DAILY PO Last administered on 11/18/18 08:38; Admin Dose 20 MG; Start 11/08/18 at 09:00 EZETIMIBE (Zetia) 10 mg DAILY PO Last administered on 11/18/18 08:39; Admin Dose 10 MG; Start 11/08/18 at 09:00 Folic Acid (Folic Acid) 1 mg DAILY PO Last administered on 11/18/18 08:36; Admin Dose 1 MG; Start 11/08/18 at 09:00 Pantoprazole (Protonix Tab) 40 mg DAILY@06 PO Last administered on 11/18/18 06:11; Admin Dose 40 MG; Start 11/08/18 at 06:00 Levothyroxine Sodium (Synthroid) 25 mcg DAILY@0600 PO Last administered on 11/18/18 06:11; Admin Dose 25 MCG; Start 11/08/18 at 06:30 Ondansetron HCl (Zofran Inj) 4 mg Q6H PRN IV NAUSEA AND/OR VOMITING Last administered on 11/12/18 12:55; Admin Dose 4 MG; Start 11/08/18 at 10:30 Lorazepam (Ativan) 0.5 mg Q6H PRN PO ANXIETY Last administered on 11/17/18 21:13; Admin Dose 0.5 MG; Start 11/09/18 at 00:00 Psyllium Hydrophilic Mucilloid (Metamucil) 1 pkt DAILY PO Last administered on 11/18/18 08:45; Admin Dose 1 PKT; Start 11/10/18 at 09:00 Megestrol Acetate (Megace Susp) 400 mg BID PO Last administered on 11/18/18 08:32; Admin Dose 400 MG; Start 11/12/18 at 21:00 Potassium Chloride (Klor-Con 20) 20 meq BID PO Last administered on 11/18/18 08:38; Admin Dose 20 MEQ; Start 11/14/18 at 21:00 Bumetanide (Bumex) 1 mg BID DIURETICS PO Last administered on 11/18/18 06:11; Admin Dose 1 MG; Start 11/16/18 at 18:00 Metoprolol Tartrate (Lopressor) 50 mg BID PO Last administered on 11/18/18 08:41; Admin Dose 50 MG; Start 11/15/18 at 21:00 Cefazolin Sodium 50 ml @ 100 mls/hr Q12 IVPB Last administered on 11/18/18at 08:42; Admin Dose 100 MLS/HR; Start 11/16/18 at 16:00 NUSRAT WADDELL Nov 18, 2018 10:43
--- NOTE | 2018-11-18 11:24 | CONS ---
Assessment/Plan Cardiology NYHA: III Heart Failure Type: Acute on Chronic Heart Failure Type: Both Consultation Date/Type/Reason Admit Date/Time Nov 07, 2018 at 12:41 Initial Consult Date 11/12/18 Type of Consult Cardiology Requesting Provider: REJI KAUFFMAN MD Date/Time of Note DATE: 11/18/18 TIME: 11:23 24 HR Interval Summary Free Text/Dictation Atrial fibrillation with initially rapid ventricular rates, improved Nausea, vomiting-resolved Acute decompensated systolic and diastolic congestive heart failure Acute kidney injury-improving Mitral and tricuspid valve regurgitation Possible colitis Hypertension Dyslipidemia History of pacemaker Patient's beta-carine dose was recently decreased, presumably secondary to blood pressure in the lower side. Patient's home dose of Lopressor was 100 mg twice daily Patient appears near euvolemic, contiue po diuretics. Being titrated as per nephrology Exam/Review of Systems Vital Signs Vitals Vital Signs Date Temp Pulse Resp B/P (MAP) Pulse Ox O2 O2 Flow FiO2 Time Delivery Rate 11/18/18 97.3 99 20 125/71 97 Room Air 11:13 (89) 11/15/18 2.0 21:00 Intake and Output 11/17/18 11/17/18 11/18/18 1515:00 23:00 07:00 IntakeIntake Total 50 ml 500 ml 550 ml OutputOutput Total 700 ml BalanceBalance 50 ml 500 ml -150 ml Exam Respiratory: clear to auscultation Cardiovascular: irregular rhythm Labs Result Diagram: 11/18/18 0444 Results 24hrs Laboratory Tests Test 11/18/18 04:44 Sodium Level 135 Potassium Level 4.4 Chloride Level 94 L Carbon Dioxide Level 35 H Anion Gap 6 Blood Urea Nitrogen 27 H Creatinine 1.09 H Est Glomerular Filtrat Rate mL/min Glucose Level 102 # Calcium Level 7.9 L Medications Medications Current Medications Ciprofloxacin/ Dextrose 200 ml @ 200 mls/hr Q24H IVPB Last administered on 11/08/18at 02:51; Admin Dose 200 MLS/HR; Start 11/08/18 at 03:00; Status Hold Metronidazole 100 ml @ 100 mls/hr Q8 IVPB Last administered on 11/07/18at 22:15; Admin Dose 100 MLS/HR; Start 11/07/18 at 14:00; Status Hold Acetaminophen (Tylenol Tab) 650 mg Q6H PRN PO MILD PAIN(1-3)OR ELEVATED TEMP Last administered on 11/12/18 00:29; Admin Dose 650 MG; Start 11/07/18 at 10:00 Loperamide HCl (Imodium Cap) 2 mg QID PRN PO DIARRHEA Last administered on 11/09 02:45; Admin Dose 2 MG; Start 11/07/18 at 10:30 Amiodarone HCl (Cordarone) 100 mg DAILY PO Last administered on 11/18/18 08:37; Admin Dose 100 MG; Start 11/08/18 at 09:00 Apixaban (Eliquis) 2.5 mg BID PO Last administered on 11/18/18 08:40; Admin Dose 2.5 MG; Start 11/07/18 at 12:00 Cholecalciferol (Vitamin D) 2,000 unit DAILY PO Last administered on 11/18/18 08:39; Admin Dose 2,000 UNIT; Start 11/08/18 at 09:00 Donepezil HCl (Aricept) 10 mg DAILY PO Last administered on 11/18/18 08:40; Admin Dose 10 MG; Start 11/08/18 at 09:00 Escitalopram Oxalate (Lexapro) 20 mg DAILY PO Last administered on 11/18/18 08:38; Admin Dose 20 MG; Start 11/08/18 at 09:00 EZETIMIBE (Zetia) 10 mg DAILY PO Last administered on 11/18/18 08:39; Admin Dose 10 MG; Start 11/08/18 at 09:00 Folic Acid (Folic Acid) 1 mg DAILY PO Last administered on 11/18/18 08:36; Admin Dose 1 MG; Start 11/08/18 at 09:00 Pantoprazole (Protonix Tab) 40 mg DAILY@06 PO Last administered on 11/18/18 06:11; Admin Dose 40 MG; Start 11/08/18 at 06:00 Levothyroxine Sodium (Synthroid) 25 mcg DAILY@0600 PO Last administered on 11/18/18 06:11; Admin Dose 25 MCG; Start 11/08/18 at 06:30 Ondansetron HCl (Zofran Inj) 4 mg Q6H PRN IV NAUSEA AND/OR VOMITING Last administered on 11/12/18 12:55; Admin Dose 4 MG; Start 11/08/18 at 10:30 Lorazepam (Ativan) 0.5 mg Q6H PRN PO ANXIETY Last administered on 11/17/18 21:13; Admin Dose 0.5 MG; Start 11/09/18 at 00:00 Psyllium Hydrophilic Mucilloid (Metamucil) 1 pkt DAILY PO Last administered on 11/18/18 08:45; Admin Dose 1 PKT; Start 11/10/18 at 09:00 Megestrol Acetate (Megace Susp) 400 mg BID PO Last administered on 11/18/18 08:32; Admin Dose 400 MG; Start 11/12/18 at 21:00 Potassium Chloride (Klor-Con 20) 20 meq BID PO Last administered on 11/18/18 08:38; Admin Dose 20 MEQ; Start 11/14/18 at 21:00 Bumetanide (Bumex) 1 mg BID DIURETICS PO Last administered on 11/18/18 06:11; Admin Dose 1 MG; Start 11/16/18 at 18:00 Metoprolol Tartrate (Lopressor) 50 mg BID PO Last administered on 11/18/18 08:41; Admin Dose 50 MG; Start 11/15/18 at 21:00 Cefazolin Sodium 50 ml @ 100 mls/hr Q12 IVPB Last administered on 11/18/18 08:42; Admin Dose 100 MLS/HR; Start 11/16/18 at 16:00 MARKIE SANTILLAN MD Nov 18, 2018 11:24
--- NOTE | 2018-11-18 13:20 | CONS ---
Assessment/Plan Assessment/Plan Assessment/Plan (Daily) # Coagulopathy - pt is noted to have an elevated PT (26sec) and PTT(35 sec). - Today patient;s PTT is within normal limits. PT mixing study corrected. This essentially rules out a factor inhibitor. This makes the most likely cause of her coagulopathy her underlying cirrhosis and Vitamin K deficiency - on oral K 5mg po x 3 days - eliquis can be continued at this time, even though the INR is 2.1, since the INR may fluctuate with his every day diet. Moreover, pt is not bleeding with his elevated INR ane eliquis so I believe this can be continued. - Baseline INR - 2.41; INR 1.24 TODAY #Colitis -GI consulted -continue Ancef #JACKELIN on CKD -pt getting fluids per renal #CHF -pt on bumex #Afib -may continue eliquis as mentioned above #HTN -continue current BP meds #RA -on remicaid as an out patient Patient seen in collaboration with Dr Ramsay Consultation Date/Type/Reason Admit Date/Time Nov 07, 2018 at 12:41 Initial Consult Date 11/12/18 Type of Consult HEM/ONC Reason for Consultation COAGULOPATHY Requesting Provider: REJI KAUFFMAN MD Date/Time of Note DATE: 11/18/18 TIME: 13:19 24 HR Interval Summary Free Text/Dictation INR - 1.24 No bleeding reported Daughter at bed side- all Qs answered Constitutional: requiring IVF, requiring O2 Detailed Summary Eyes: no complaints ENT: no complaints Respiratory: no complaints Cardiovascular: no complaints Gastrointestinal: no complaints Genitourinary: no complaints Musculoskeletal: other (geerelized weakness) Skin: no complaints Neurologic: no complaints Exam/Review of Systems Exam Vitals Vital Signs Date Temp Pulse Resp B/P (MAP) Pulse Ox O2 O2 Flow FiO2 Time Delivery Rate 11/18/18 97 12:01 11/18/18 97.3 20 125/71 97 Room Air 11:13 (89) 11/15/18 2.0 21:00 Intake and Output 11/17/18 11/17/18 11/18/18 1515:00 23:00 07:00 IntakeIntake Total 50 ml 500 ml 550 ml OutputOutput Total 700 ml BalanceBalance 50 ml 500 ml -150 ml Constitutional: alert, well developed Psych: nl mood/affect Head: atraumatic Eyes: nl conjunctiva ENMT: nl external ears & nose Neck: non-tender Respiratory: clear to auscultation Cardiovascular: nl pulses, other (s1s2) Gastrointestinal: soft, non-tender Musculoskeletal: muscle weakness Extremities: normal pulses Neurological: nl mental status Lymph: nontender Results Result Diagram: 11/18/18 0444 Results 24hrs Laboratory Tests Test 11/18/18 04:44 Sodium Level 135 Potassium Level 4.4 Chloride Level 94 L Carbon Dioxide Level 35 H Anion Gap 6 Blood Urea Nitrogen 27 H Creatinine 1.09 H Est Glomerular Filtrat Rate mL/min Glucose Level 102 # Calcium Level 7.9 L Medications Medication Current Medications Ciprofloxacin/ Dextrose 200 ml @ 200 mls/hr Q24H IVPB Last administered on 11/08/18 02:51; Admin Dose 200 MLS/HR; Start 11/08/18 at 03:00; Status Hold Metronidazole 100 ml @ 100 mls/hr Q8 IVPB Last administered on 11/07/18at 22:15; Admin Dose 100 MLS/HR; Start 11/07/18 at 14:00; Status Hold Acetaminophen (Tylenol Tab) 650 mg Q6H PRN PO MILD PAIN(1-3)OR ELEVATED TEMP Last administered on 11/12/18 00:29; Admin Dose 650 MG; Start 11/07/18 at 10:00 Loperamide HCl (Imodium Cap) 2 mg QID PRN PO DIARRHEA Last administered on 11/09/18 02:45; Admin Dose 2 MG; Start 11/07/18 at 10:30 Amiodarone HCl (Cordarone) 100 mg DAILY PO Last administered on 11/18/18 08:37; Admin Dose 100 MG; Start 11/08/18 at 09:00 Apixaban (Eliquis) 2.5 mg BID PO Last administered on 11/18/18 08:40; Admin Dose 2.5 MG; Start 11/07/18 at 12:00 Cholecalciferol (Vitamin D) 2,000 unit DAILY PO Last administered on 11/18/18 08:39; Admin Dose 2,000 UNIT; Start 11/08/18 at 09:00 Donepezil HCl (Aricept) 10 mg DAILY PO Last administered on 11/18/18 08:40; Admin Dose 10 MG; Start 11/08/18 at 09:00 Escitalopram Oxalate (Lexapro) 20 mg DAILY PO Last administered on 11/18/18 08:38; Admin Dose 20 MG; Start 11/08/18 at 09:00 EZETIMIBE (Zetia) 10 mg DAILY PO Last administered on 11/18/18 08:39; Admin Dose 10 MG; Start 11/08/18 at 09:00 Folic Acid (Folic Acid) 1 mg DAILY PO Last administered on 11/18/18 08:36; Admin Dose 1 MG; Start 11/08/18 at 09:00 Pantoprazole (Protonix Tab) 40 mg DAILY@06 PO Last administered on 11/18/18 06:11; Admin Dose 40 MG; Start 11/08/18 at 06:00 Levothyroxine Sodium (Synthroid) 25 mcg DAILY@0600 PO Last administered on 11/18/18 06:11; Admin Dose 25 MCG; Start 11/08/18 at 06:30 Ondansetron HCl (Zofran Inj) 4 mg Q6H PRN IV NAUSEA AND/OR VOMITING Last administered on 11/12/18 12:55; Admin Dose 4 MG; Start 11/08/18 at 10:30 Lorazepam (Ativan) 0.5 mg Q6H PRN PO ANXIETY Last administered on 11/17/18 21:13; Admin Dose 0.5 MG; Start 11/09/18 at 00:00 Psyllium Hydrophilic Mucilloid (Metamucil) 1 pkt DAILY PO Last administered on 11/18/18 08:45; Admin Dose 1 PKT; Start 11/10/18 at 09:00 Megestrol Acetate (Megace Susp) 400 mg BID PO Last administered on 11/18/18 08:32; Admin Dose 400 MG; Start 11/12/18 at 21:00 Potassium Chloride (Klor-Con 20) 20 meq BID PO Last administered on 11/18/18 08:38; Admin Dose 20 MEQ; Start 11/14/18 at 21:00 Bumetanide (Bumex) 1 mg BID DIURETICS PO Last administered on 11/18/18 06:11; Admin Dose 1 MG; Start 11/16/18 at 18:00 Metoprolol Tartrate (Lopressor) 50 mg BID PO Last administered on 6/16/19at 08:41; Admin Dose 50 MG; Start 11/15/18 at 21:00 Cefazolin Sodium 50 ml @ 100 mls/hr Q12 IVPB Last administered on 11/18/18 08:42; Admin Dose 100 MLS/HR; Start 11/16/18 at 16:00 HOMERO ISAACS Nov 18, 2018 13:20
--- NOTE | 2018-11-18 13:38 | CONS ---
Assessment/Plan Assessment/Plan Hospital Course (Demo Recall) 1. Nonoliguric acute kidney injury on top of chronic kidney disease stage III. Etiology is felt to be secondary to hemodynamics, possible cardiorenal syndrome. The patient's renal function has slowly been improving on diuretic po therapy. We would continue current treatment plan. Continue supportive care, renally dose all medications. 2. Hyponatremia: monitor Na 3. Mixed acid base disorder. Continue to monitor. 4. Mild hematuria, possibly due to Nguyen trauma. Continue to monitor. 5. Anemia. Monitor hemoglobin and hematocrit levels. 6. Mineral bone disorder. Monitor calcium and phosphorus levels. 7. Decompensated heart failure. Continue current diuretic regimen. The pat ient appears to be near euvolemic status. 8. Hypernatremia, secondary to congestive heart failure, improved. 9. Possible colitis. Continue current antibiotic regimen. 10. Atrial fibrillation. Continue medical management. 11. History of rheumatoid arthritis. Continue to monitor. 12. Dyslipidemia. Consultation Date/Type/Reason Admit Date/Time Nov 07, 2018 at 12:41 Initial Consult Date 11/12/18 Requesting Provider: REJI KAUFFMAN MD Date/Time of Note DATE: 11/18/18 TIME: 13:37 24 HR Interval Summary Free Text/Dictation denies n/v or shortness of breath d/w rn gen nad cv rrr pulm ctab abd soft, nd, nt +bs ext: no edema Exam/Review of Systems Exam Vitals Vital Signs Date Temp Pulse Resp B/P (MAP) Pulse Ox O2 O2 Flow FiO2 Time Delivery Rate 11/18/18 97 12:01 11/18/18 97.3 20 125/71 97 Room Air 11:13 (89) 11/15/18 2.0 21:00 Intake and Output 11/17/18 11/17/18 11/18/18 1515:00 23:00 07:00 IntakeIntake Total 50 ml 500 ml 550 ml OutputOutput Total 700 ml BalanceBalance 50 ml 500 ml -150 ml Results Result Diagram: 11/18/18 0444 Results 24hrs Laboratory Tests Test 11/18/18 04:44 Sodium Level 135 Potassium Level 4.4 Chloride Level 94 L Carbon Dioxide Level 35 H Anion Gap 6 Blood Urea Nitrogen 27 H Creatinine 1.09 H Est Glomerular Filtrat Rate mL/min Glucose Level 102 # Calcium Level 7.9 L Medications Medication Current Medications Ciprofloxacin/ Dextrose 200 ml @ 200 mls/hr Q24H IVPB Last administered on 11/08/18 02:51; Admin Dose 200 MLS/HR; Start 11/08/18 at 03:00; Status Hold Metronidazole 100 ml @ 100 mls/hr Q8 IVPB Last administered on 11/07/18at 22:15; Admin Dose 100 MLS/HR; Start 11/07/18 at 14:00; Status Hold Acetaminophen (Tylenol Tab) 650 mg Q6H PRN PO MILD PAIN(1-3)OR ELEVATED TEMP Last administered on 11/12/18 00:29; Admin Dose 650 MG; Start 11/07/18 at 10:00 Loperamide HCl (Imodium Cap) 2 mg QID PRN PO DIARRHEA Last administered on 11/09/18 02:45; Admin Dose 2 MG; Start 11/07/18 at 10:30 Amiodarone HCl (Cordarone) 100 mg DAILY PO Last administered on 11/18/18 08:37; Admin Dose 100 MG; Start 11/08/18 at 09:00 Apixaban (Eliquis) 2.5 mg BID PO Last administered on 11/18/18 08:40; Admin Dose 2.5 MG; Start 11/07/18 at 12:00 Cholecalciferol (Vitamin D) 2,000 unit DAILY PO Last administered on 11/18/18 08:39; Admin Dose 2,000 UNIT; Start 11/08/18 at 09:00 Donepezil HCl (Aricept) 10 mg DAILY PO Last administered on 11/18/18 08:40; Admin Dose 10 MG; Start 11/08/18 at 09:00 Escitalopram Oxalate (Lexapro) 20 mg DAILY PO Last administered on 11/18/18 08:38; Admin Dose 20 MG; Start 11/08/18 at 09:00 EZETIMIBE (Zetia) 10 mg DAILY PO Last administered on 11/18/18 08:39; Admin Dose 10 MG; Start 11/08/18 at 09:00 Folic Acid (Folic Acid) 1 mg DAILY PO Last administered on 11/18/18 08:36; Admin Dose 1 MG; Start 11/08/18 at 09:00 Pantoprazole (Protonix Tab) 40 mg DAILY@06 PO Last administered on 11/18/18 06:11; Admin Dose 40 MG; Start 11/08/18 at 06:00 Levothyroxine Sodium (Synthroid) 25 mcg DAILY@0600 PO Last administered on 11/18/18 06:11; Admin Dose 25 MCG; Start 11/08/18 at 06:30 Ondansetron HCl (Zofran Inj) 4 mg Q6H PRN IV NAUSEA AND/OR VOMITING Last administered on 11/12/18 12:55; Admin Dose 4 MG; Start 11/08/18 at 10:30 Lorazepam (Ativan) 0.5 mg Q6H PRN PO ANXIETY Last administered on 11/17/18 21:13; Admin Dose 0.5 MG; Start 11/09/18 at 00:00 Psyllium Hydrophilic Mucilloid (Metamucil) 1 pkt DAILY PO Last administered on 11/18/18 08:45; Admin Dose 1 PKT; Start 11/10/18 at 09:00 Megestrol Acetate (Megace Susp) 400 mg BID PO Last administered on 11/18/18 08:32; Admin Dose 400 MG; Start 11/12/18 at 21:00 Potassium Chloride (Klor-Con 20) 20 meq BID PO Last administered on 11/18/18 08:38; Admin Dose 20 MEQ; Start 11/14/18 at 21:00 Bumetanide (Bumex) 1 mg BID DIURETICS PO Last administered on 11/18/18 06:11; Admin Dose 1 MG; Start 11/16/18 at 18:00 Metoprolol Tartrate (Lopressor) 50 mg BID PO Last administered on 11/18/18 08:41; Admin Dose 50 MG; Start 11/15/18 at 21:00 Cefazolin Sodium 50 ml @ 100 mls/hr Q12 IVPB Last administered on 11/18/18 08:42; Admin Dose 100 MLS/HR; Start 11/16/18 at 16:00 FELIPE BREAUX MD Nov 18, 2018 13:38
[2018-11-19] VITALS (12 sets, daily range): BP systolic 122–157; BP diastolic 64–77; PULSE 82–107; RESP 16–20
[2018-11-19] MEDS: BUMETANIDE 1 MG TAB PO SCH ×2 (06:28→17:09)
[2018-11-19] MEDS: PANTOPRAZOLE (EC) 40 MG TAB PO SCH (06:28)
[2018-11-19] MEDS: LEVOTHYROXINE 25 MCG TAB PO SCH (06:28)
--- NOTE | 2018-11-19 07:59 | CONS ---
Assessment/Plan Assessment/Plan Hospital Course (Demo Recall) 83 yo female with N/V and diarrhea 1. Nausea, vomiting and diarrhea which have subsided now, most probably related to viral infection or of infectious etiology -resolved. 2. Atrial fibrillation for which she is on Eliquis. 3. Status post pacemaker insertion. 4. Dyslipidemia. 5. Hypothyroidism. 6. Hypertension. 7. Fatigue -likely due to depression -lexapro 8. Pedal edema pitting all the way up to knee, has reduced her drastically responded well to diuretics. 9. Coagulopathy may be due to cirrhosis of liver -improved -heme following 10. Abnormal LFT -patient CAT scan shows nodular liver which may be due to cirrhosis and also steatosis is playing a role -Hep panel unremarkable 11. Thrombocytopenia -followed by Dr Ramsay 12. Liver cirrhosis noted in CT scan -HEARD? -hep panel unremarkable. -hepatic autoimmune panel unremarkable Plan Continue present care CBC and CMP in am Pt examined and plan of care discussed with Dr Merchant Consultation Date/Type/Reason Admit Date/Time Nov 07, 2018 at 12:41 Initial Consult Date 11/12/18 Requesting Provider: REJI KAUFFMAN MD Date/Time of Note DATE: 11/19/18 TIME: 07:52 24 HR Interval Summary Free Text/Dictation Per RN, no complaints of abdominal pain. BM nl. Tolerating PO diet. Exam/Review of Systems Exam Vitals Vital Signs Date Temp Pulse Resp B/P (MAP) Pulse Ox O2 O2 Flow FiO2 Time Delivery Rate 11/19/18 98.7 107 18 157/70 98 Room Air 07:39 (99) 11/15/18 2.0 21:00 Intake and Output 11/18/18 11/18/18 11/19/18 1515:00 23:00 07:00 IntakeIntake Total 50 ml 960 ml 750 ml OutputOutput Total 650 ml BalanceBalance 50 ml 960 ml 100 ml Constitutional: alert Psych: no complaints Eyes: PERRL, icteric Gastrointestinal: soft, non-tender, bowel sounds Results Result Diagram: 11/19/18 0544 Results 24hrs Laboratory Tests Test 11/19/18 05:44 Sodium Level 131 L Potassium Level 4.8 Chloride Level 93 L Carbon Dioxide Level 30 Anion Gap 8 Blood Urea Nitrogen 26 H Creatinine 1.11 H Est Glomerular Filtrat Rate mL/min Glucose Level 118 Calcium Level 8.2 L Medications Medication Current Medications Ciprofloxacin/ Dextrose 200 ml @ 200 mls/hr Q24H IVPB Last administered on 11/08/18 02:51; Admin Dose 200 MLS/HR; Start 11/08/18 at 03:00; Status Hold Metronidazole 100 ml @ 100 mls/hr Q8 IVPB Last administered on 11/07/18 22:15; Admin Dose 100 MLS/HR; Start 11/07/18 at 14:00; Status Hold Acetaminophen (Tylenol Tab) 650 mg Q6H PRN PO MILD PAIN(1-3)OR ELEVATED TEMP Last administered on 11/12/18 00:29; Admin Dose 650 MG; Start 11/07/18 at 10:00 Loperamide HCl (Imodium Cap) 2 mg QID PRN PO DIARRHEA Last administered on 02:45; Admin Dose 2 MG; Start 11/07/18 at 10:30 Amiodarone HCl (Cordarone) 100 mg DAILY PO Last administered on 11/18/18 08:37; Admin Dose 100 MG; Start 11/08/18 at 09:00 Apixaban (Eliquis) 2.5 mg BID PO Last administered on 11/18/18 20:36; Admin Dose 2.5 MG; Start 11/07/18 at 12:00 Cholecalciferol (Vitamin D) 2,000 unit DAILY PO Last administered on 11/18/18 08:39; Admin Dose 2,000 UNIT; Start 11/08/18 at 09:00 Donepezil HCl (Aricept) 10 mg DAILY PO Last administered on 11/18/18 08:40; Admin Dose 10 MG; Start 11/08/18 at 09:00 Escitalopram Oxalate (Lexapro) 20 mg DAILY PO Last administered on 11/18/18 08:38; Admin Dose 20 MG; Start 11/08/18 at 09:00 EZETIMIBE (Zetia) 10 mg DAILY PO Last administered on 11/18/18 08:39; Admin Dose 10 MG; Start 11/08/18 at 09:00 Folic Acid (Folic Acid) 1 mg DAILY PO Last administered on 11/18/18 08:36; Admin Dose 1 MG; Start 11/08/18 at 09:00 Pantoprazole (Protonix Tab) 40 mg DAILY@06 PO Last administered on 11/19/18 06:28; Admin Dose 40 MG; Start 11/08/18 at 06:00 Levothyroxine Sodium (Synthroid) 25 mcg DAILY@0600 PO Last administered on 11/19/18 06:28; Admin Dose 25 MCG; Start 11/08/18 at 06:30 Ondansetron HCl (Zofran Inj) 4 mg Q6H PRN IV NAUSEA AND/OR VOMITING Last administered on 11/12/18 12:55; Admin Dose 4 MG; Start 11/08/18 at 10:30 Lorazepam (Ativan) 0.5 mg Q6H PRN PO ANXIETY Last administered on 11/17/18 21:13; Admin Dose 0.5 MG; Start 11/09/18 at 00:00 Psyllium Hydrophilic Mucilloid (Metamucil) 1 pkt DAILY PO Last administered on 11/18/18 08:45; Admin Dose 1 PKT; Start 11/10/18 at 09:00 Megestrol Acetate (Megace Susp) 400 mg BID PO Last administered on 11/18/18 20:35; Admin Dose 400 MG; Start 11/12/18 at 21:00 Potassium Chloride (Klor-Con 20) 20 meq BID PO Last administered on 11/18/18 20:36; Admin Dose 20 MEQ; Start 11/14/18 at 21:00 Bumetanide (Bumex) 1 mg BID DIURETICS PO Last administered on 11/19/18 06:28; Admin Dose 1 MG; Start 11/16/18 at 18:00 Metoprolol Tartrate (Lopressor) 50 mg BID PO Last administered on 11/18/18 20:36; Admin Dose 50 MG; Start 11/15/18 at 21:00 Cefazolin Sodium 50 ml @ 100 mls/hr Q12 IVPB Last administered on 11/18/18 20:37; Admin Dose 100 MLS/HR; Start 11/16/18 at 16:00 HEATHER MEDRANO Nov 19, 2018 07:59
--- NOTE | 2018-11-19 09:11 | PN ---
DATE: 11/19/2018 SUBJECTIVE: The patient is stable, alert and oriented x4. No other acute events noted. OBJECTIVE: VITAL SIGNS: Blood pressure is 157/70, respiration 18, pulse 102, temperature 98.6. HEENT: Head is normocephalic. NECK: Supple. HEART: Regular rate. LUNGS: Show diminished breath sounds at base. ABDOMEN: Soft, nontender to palpation without rebound or guarding. EXTREMITIES: Negative for clubbing, cyanosis, no edema. DERMATOLOGIC: No rashes. MUSCULOSKELETAL: No joint effusions. NEUROLOGIC: No change in exam. MEDICATIONS: Reviewed. LABORATORY DATA: Has been reviewed. ASSESSMENT AND PLAN: 1. Oliguric acute injury on chronic kidney disease stage III. Etiology of acute kidney injury is fe lt to be secondary to hemodynamics, possible cardiorenal syndrome. The patient's renal function has slowly been improving. Continue current diuretic regimen. Continue supportive care, renally dose al l medication. 2. Hyponatremia. Continue to monitor sodium levels. 3. Hypokalemia. Continue to monitor and replete as needed. 4. Mixed acid base disorder. Continue to monitor. 5. Mild hematuria secondary to Nguyen catheter, improving. Continue to monitor. 6. Anemia. Monitor hemoglobin and hematocrit level levels. 7. Mineral bone disorder. Monitor calcium and phosphorus levels. 8. Decompensated heart failure. The patient appears near euvolemic. Continue current diuretic mir men. 9. Possible colitis. Continue current antibiotic regimen. 10. Atrial fibrillation. Continue medical management. 11. History of rheumatoid arthritis. 12. Dyslipidemia. Dictated By: BEENA ARAUJO/NTS Conf#: [id number] DID#: [id number] CC: REJI KAUFFMAN MD;*EndCC*
[2018-11-19] MEDS: MEGESTROL (40 MG/ML) 10ML CUP PO SCH ×2 (09:33→20:30)
[2018-11-19] MEDS: PSYLLIUM 28% PACKET PO SCH (09:34)
[2018-11-19] MEDS: ESCITALOPRAM 10 MG TAB PO SCH (09:35)
[2018-11-19] MEDS: AMIODARONE 200 MG TAB PO SCH (09:35)
[2018-11-19] MEDS: EZETIMIBE 10 MG TAB PO SCH (09:35)
[2018-11-19] MEDS: FOLIC ACID 1 MG TAB PO SCH (09:36)
[2018-11-19] MEDS: APIXABAN 5 MG TABLET PO SCH ×2 (09:36→20:30)
[2018-11-19] MEDS: METOPROLOL 50 MG TAB PO SCH ×2 (09:36→20:34)
[2018-11-19] MEDS: POTASSIUM CHLORIDE (SR) 20 MEQ TAB PO SCH ×2 (09:37→20:30)
[2018-11-19] MEDS: DONEPEZIL 10 MG TAB PO SCH (09:37)
[2018-11-19] MEDS: CHOLECALCIFEROL 2,000 UNIT CAP PO SCH (09:37)
[2018-11-19] MEDS: CEFAZOLIN 1 GM/50 ML (PMX) 50 ML IVPB SCH ×2 (09:43→20:29)
--- NOTE | 2018-11-19 10:59 | CONS ---
Assessment/Plan Assessment/Plan Hospital Course (Demo Recall) #Coagulopathy -pt is noted to have an elevated PT (26sec) and PTT(35 sec). Today patient;s PTT is within normal limits. PT mixing study corrected. This essentially rules out a factor inhibitor. This makes the most likely cause of her coagulopathy her underlying cirrhosis and Vitamin K deficiency -s/p oral Vitamin K 5mg po x 3 days -INR now 1.2 -continue eliquis at this time for afib #Colitis -GI consulted -continue Levaquin and Flagyl #JACKELIN on CKD -pt getting fluids per osito #CHF -pt on bumex #Afib -may continue eliquis as mentioned above #HTN -continue current BP meds #RA -on remicaid as an out patient Thank you for the opportunity to participate in this patients care A total of 40 minutes of face to face time was spent speaking with the patient, of which greater than 50% was spent in counseling and coordination of care and the detailed question and answer session. Consultation Date/Type/Reason Admit Date/Time Nov 07, 2018 at 12:41 Initial Consult Date 11/12/18 Type of Consult hematology Reason for Consultation coagulopathy Requesting Provider: REJI KAUFFMAN MD Date/Time of Note DATE: 11/19/18 TIME: 10:55 24 HR Interval Summary Free Text/Dictation no acute overnight events.edema has improved Exam/Review of Systems Exam Vitals Vital Signs Date Temp Pulse Resp B/P (MAP) Pulse Ox O2 O2 Flow FiO2 Time Delivery Rate 11/19/18 103 08:01 11/19/18 98.7 18 157/70 98 Room Air 07:39 (99) 11/15/18 2.0 21:00 Intake and Output 11/18/18 11/18/18 11/19/18 1515:00 23:00 07:00 IntakeIntake Total 50 ml 960 ml 750 ml OutputOutput Total 650 ml BalanceBalance 50 ml 960 ml 100 ml Constitutional: alert, oriented Psych: anxiety, depression Head: normocephalic Eyes: nl conjunctiva Neck: supple Respiratory: clear to auscultation Cardiovascular: regular rate and rhythm Gastrointestinal: soft Musculoskeletal: nl extremities to inspection Extremities: normal pulses Results Result Diagram: 11/19/18 0544 Results 24hrs Laboratory Tests Test 11/19/18 05:44 Sodium Level 131 L Potassium Level 4.8 Chloride Level 93 L Carbon Dioxide Level 30 Anion Gap 8 Blood Urea Nitrogen 26 H Creatinine 1.11 H Est Glomerular Filtrat Rate mL/min Glucose Level 118 Calcium Level 8.2 L Medications Medication Current Medications Ciprofloxacin/ Dextrose 200 ml @ 200 mls/hr Q24H IVPB Last administered on 11/08/18 02:51; Admin Dose 200 MLS/HR; Start 11/08/18 at 03:00; Status Hold Metronidazole 100 ml @ 100 mls/hr Q8 IVPB Last administered on 11/07/18at 22:15; Admin Dose 100 MLS/HR; Start 11/07/18 at 14:00; Status Hold Acetaminophen (Tylenol Tab) 650 mg Q6H PRN PO MILD PAIN(1-3)OR ELEVATED TEMP Last administered on 11/12/18 00:29; Admin Dose 650 MG; Start 11/07/18 at 10:00 Loperamide HCl (Imodium Cap) 2 mg QID PRN PO DIARRHEA Last administered on 11/09/18 02:45; Admin Dose 2 MG; Start 11/07/18 at 10:30 Amiodarone HCl (Cordarone) 100 mg DAILY PO Last administered on 11/19/18 09:35; Admin Dose 100 MG; Start 11/08/18 at 09:00 Apixaban (Eliquis) 2.5 mg BID PO Last administered on 11/19/18 09:36; Admin Dose 2.5 MG; Start 11/07/18 at 12:00 Cholecalciferol (Vitamin D) 2,000 unit DAILY PO Last administered on 11/19/18 09:37; Admin Dose 2,000 UNIT; Start 11/08/18 at 09:00 Donepezil HCl (Aricept) 10 mg DAILY PO Last administered on 11/19/18 09:37; Admin Dose 10 MG; Start 11/08/18 at 09:00 Escitalopram Oxalate (Lexapro) 20 mg DAILY PO Last administered on 11/19/18 09:35; Admin Dose 20 MG; Start 11/08/18 at 09:00 EZETIMIBE (Zetia) 10 mg DAILY PO Last administered on 11/19/18 09:35; Admin Dose 10 MG; Start 11/08/18 at 09:00 Folic Acid (Folic Acid) 1 mg DAILY PO Last administered on 11/19/18 09:36; Admin Dose 1 MG; Start 11/08/18 at 09:00 Pantoprazole (Protonix Tab) 40 mg DAILY@06 PO Last administered on 11/19/18 06:28; Admin Dose 40 MG; Start 11/08/18 at 06:00 Levothyroxine Sodium (Synthroid) 25 mcg DAILY@0600 PO Last administered on 11/19/18 06:28; Admin Dose 25 MCG; Start 11/08/18 at 06:30 Ondansetron HCl (Zofran Inj) 4 mg Q6H PRN IV NAUSEA AND/OR VOMITING Last admin istered on 11/12/18 12:55; Admin Dose 4 MG; Start 11/08/18 at 10:30 Lorazepam (Ativan) 0.5 mg Q6H PRN PO ANXIETY Last administered on 11/17/18 21:13; Admin Dose 0.5 MG; Start 11/09/18 at 00:00 Psyllium Hydrophilic Mucilloid (Metamucil) 1 pkt DAILY PO Last administered on 11/19/18 09:34; Admin Dose 1 PKT; Start 11/10/18 at 09:00 Megestrol Acetate (Megace Susp) 400 mg BID PO Last administered on 11/19/18 09:33; Admin Dose 400 MG; Start 11/12/18 at 21:00 Potassium Chloride (Klor-Con 20) 20 meq BID PO Last administered on 11/19/18 09:37; Admin Dose 20 MEQ; Start 11/14/18 at 21:00 Bumetanide (Bumex) 1 mg BID DIURETICS PO Last administered on 11/19/18 06:28; Admin Dose 1 MG; Start 11/16/18 at 18:00 Metoprolol Tartrate (Lopressor) 50 mg BID PO Last administered on 11/19/18 09:36; Admin Dose 50 MG; Start 11/15/18 at 21:00 Cefazolin Sodium 50 ml @ 100 mls/hr Q12 IVPB Last administered on 11/19/18 09:43; Admin Dose 100 MLS/HR; Start 11/16/18 at 16:00 CRISTIAN LEBLANC M.D. Nov 19, 2018 10:59
--- NOTE | 2018-11-19 18:42 | PN ---
Date/Time of Note Date/Time of Note DATE: 11/19/18 TIME: 18:39 Assessment/Plan VTE Prophylaxis Risk score (from Nsg)>0 risk: 4 SCD applied (from Nsg): Yes Pharmacological prophylaxis: apixaban Lines/Catheters IV Catheter Type (from Nrsg): Mid Line Urinary Cath still in place: No Assessment/Plan Hospital Course Patient with improvement of left foot redness, continues on Bumex for CHF, continue to monitor renal function, patient is able to tolerate diet, continue current treatment and physical therapy. Assessment/Plan -Left foot cellulitis, improving. continue Ancef. -Acute decompensated systolic and diastolic congestive heart failure, continue diuretics per nephrology. -Hypokalemia, continue Klor-Con twice daily, monitor BMP. -Coagulopathy most likely to liver cirrhosis and vitamin K deficiency. Dr. Ramsay is following in hematology consultation. -Atrial fibrillation with initially rapid ventricular rates, improved, continue Eliquis and metoprolol. Dr Mayers is following in cardiology consultation. -Nausea vomiting and diarrhea for 2 days, resolved. Dr. Merchant is following in gastroenterology consultation. -Colitis per CT scan. S/p Levaquin and Flagyl. 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 Patient unable to undergo MRI due to pacemaker. Dr. Duque is following and podiatry consultation. -Hypertension, continue metoprolol Norvasc and Cozaar -PPM -Hypothyroidism -Rheumatoid arthritis Further recommendations based on clinical course. Plan of care discussed with Dr. aRyo. Result Diagram: 11/19/18 0544 Results 24hrs Laboratory Tests Test 11/19/18 05:44 Sodium Level 131 L Potassium Level 4.8 Chloride Level 93 L Carbon Dioxide Level 30 Anion Gap 8 Blood Urea Nitrogen 26 H Creatinine 1.11 H Est Glomerular Filtrat Rate mL/min Glucose Level 118 Calcium Level 8.2 L Exam/Review of Systems Exam Vitals Vital Signs Date Temp Pulse Resp B/P (MAP) Pulse Ox O2 O2 Flow FiO2 Time Delivery Rate 11/19/18 82 16:01 11/19/18 97.4 16 124/72 98 Room Air 15:40 (89) 11/15/18 2.0 21:00 Intake and Output 11/18/18 11/18/18 11/19/18 1515:00 23:00 07:00 IntakeIntake Total 50 ml 960 ml 750 ml OutputOutput Total 650 ml BalanceBalance 50 ml 960 ml 100 ml Exam Constitutional: alert, oriented Respiratory: clear to auscultation Cardiovascular: irregular rhythm, other (L chest PPM) Gastrointestinal: soft, non-tender Musculoskeletal: nl extremities to inspection Extremities: normal pulses Neurological: nl mental status Results Results 24hrs Laboratory Tests Test 11/19/18 05:44 Sodium Level 131 L Potassium Level 4.8 Chloride Level 93 L Carbon Dioxide Level 30 Anion Gap 8 Blood Urea Nitrogen 26 H Creatinine 1.11 H Est Glomerular Filtrat Rate mL/min Glucose Level 118 Calcium Level 8.2 L Medications Medication Current Medications Ciprofloxacin/ Dextrose 200 ml @ 200 mls/hr Q24H IVPB Last administered on 11/08/18 02:51; Admin Dose 200 MLS/HR; Start 11/08/18 at 03:00; Status Hold Metronidazole 100 ml @ 100 mls/hr Q8 IVPB Last administered on 11/07/18at 22:15; Admin Dose 100 MLS/HR; Start 11/07/18 at 14:00; Status Hold Acetaminophen (Tylenol Tab) 650 mg Q6H PRN PO MILD PAIN(1-3)OR ELEVATED TEMP Last administered on 11/12/18at 00:29; Admin Dose 650 MG; Start 11/07/18 at 10:00 Loperamide HCl (Imodium Cap) 2 mg QID PRN PO DIARRHEA Last administered on 11/09/18 02:45; Admin Dose 2 MG; Start 11/07/18 at 10:30 Amiodarone HCl (Cordarone) 100 mg DAILY PO Last administered on 11/19/18at 09:35; Admin Dose 100 MG; Start 11/08/18 at 09:00 Apixaban (Eliquis) 2.5 mg BID PO Last administered on 11/19/18 09:36; Admin Dose 2.5 MG; Start 11/07/18 at 12:00 Cholecalciferol (Vitamin D) 2,000 unit DAILY PO Last administered on 11/19/18 09:37; Admin Dose 2,000 UNIT; Start 11/08/18 at 09:00 Donepezil HCl (Aricept) 10 mg DAILY PO Last administered on 11/19/18 09:37; Admin Dose 10 MG; Start 11/08/18 at 09:00 Escitalopram Oxalate (Lexapro) 20 mg DAILY PO Last administered on 11/19/18 09:35; Admin Dose 20 MG; Start 11/08/18 at 09:00 EZETIMIBE (Zetia) 10 mg DAILY PO Last administered on 11/19/18 09:35; Admin Dose 10 MG; Start 11/08/18 at 09:00 Folic Acid (Folic Acid) 1 mg DAILY PO Last administered on 11/19/18 09:36; Admin Dose 1 MG; Start 11/08/18 at 09:00 Pantoprazole (Protonix Tab) 40 mg DAILY@06 PO Last administered on 11/19/18 06:28; Admin Dose 40 MG; Start 11/08/18 at 06:00 Levothyroxine Sodium (Synthroid) 25 mcg DAILY@0600 PO Last administered on 11/19/18 06:28; Admin Dose 25 MCG; Start 11/08/18 at 06:30 Ondansetron HCl (Zofran Inj) 4 mg Q6H PRN IV NAUSEA AND/OR VOMITING Last administered on 11/12/18 12:55; Admin Dose 4 MG; Start 11/08/18 at 10:30 Lorazepam (Ativan) 0.5 mg Q6H PRN PO ANXIETY Last administered on 11/17/18 21:13; Admin Dose 0.5 MG; Start 11/09/18 at 00:00 Psyllium Hydrophilic Mucilloid (Metamucil) 1 pkt DAILY PO Last administered on 11/19/18 09:34; Admin Dose 1 PKT; Start 11/10/18 at 09:00 Megestrol Acetate (Megace Susp) 400 mg BID PO Last administered on 11/19/18 09:33; Admin Dose 400 MG; Start 11/12/18 at 21:00 Potassium Chloride (Klor-Con 20) 20 meq BID PO Last administered on 11/19/18 09:37; Admin Dose 20 MEQ; Start 11/14/18 at 21:00 Bumetanide (Bumex) 1 mg BID DIURETICS PO Last administered on 11/19/18 17:09; Admin Dose 1 MG; Start 11/16/18 at 18:00 Metoprolol Tartrate (Lopressor) 50 mg BID PO Last administered on 11/19/18at 09:36; Admin Dose 50 MG; Start 11/15/18 at 21:00 Cefazolin Sodium 50 ml @ 100 mls/hr Q12 IVPB Last administered on 11/19/18at 09:43; Admin Dose 100 MLS/HR; Start 11/16/18 at 16:00 OSCAR GAYTAN Nov 19, 2018 18:42
--- NOTE | 2018-11-19 19:51 | CONS ---
Assessment/Plan Cardiology NYHA: III Heart Failure Type: Acute on Chronic Heart Failure Type: Both Assessment/Plan Assessment/Plan (Daily) Atrial fibrillation with initially rapid ventricular rates, improved Nausea, vomiting-resolved Acute decompensated systolic and diastolic congestive heart failure Acute kidney injury-improving Mitral and tricuspid valve regurgitation Possible colitis Hypertension Dyslipidemia History of pacemaker Patient's beta-carine dose was recently decreased, presumably secondary to blood pressure in the lower side. Patient's home dose of Lopressor was 100 mg twice daily Patient appears near euvolemic, contiue po diuretics. Being titrated as per nephrology Consultation Date/Type/Reason Admit Date/Time Nov 07, 2018 at 12:41 Initial Consult Date 11/12/18 Type of Consult Cardiology Requesting Provider: REJI KAUFFMAN MD Date/Time of Note DATE: 11/19/18 TIME: 19:47 24 HR Interval Summary Free Text/Dictation the patient with no cahnge Exam/Review of Systems Vital Signs Vitals Vital Signs Date Temp Pulse Resp B/P (MAP) Pulse Ox O2 O2 Flow FiO2 Time Delivery Rate 11/19/18 82 16:01 11/19/18 97.4 16 124/72 98 Room Air 15:40 (89) 11/15/18 2.0 21:00 Intake and Output 11/18/18 11/18/18 11/19/18 1515:00 23:00 07:00 IntakeIntake Total 50 ml 960 ml 750 ml OutputOutput Total 650 ml BalanceBalance 50 ml 960 ml 100 ml Labs Result Diagram: 11/19/18 0544 Results 24hrs Laboratory Tests Test 11/19/18 05:44 Sodium Level 131 L Potassium Level 4.8 Chloride Level 93 L Carbon Dioxide Level 30 Anion Gap 8 Blood Urea Nitrogen 26 H Creatinine 1.11 H Est Glomerular Filtrat Rate mL/min Glucose Level 118 Calcium Level 8.2 L Medications Medications Current Medications Ciprofloxacin/ Dextrose 200 ml @ 200 mls/hr Q24H IVPB Last administered on 11/08/18at 02:51; Admin Dose 200 MLS/HR; Start 11/08/18 at 03:00; Status Hold Metronidazole 100 ml @ 100 mls/hr Q8 IVPB Last administered on 11/07/18at 22:15; Admin Dose 100 MLS/HR; Start 11/07/18 at 14:00; Status Hold Acetaminophen (Tylenol Tab) 650 mg Q6H PRN PO MILD PAIN(1-3)OR ELEVATED TEMP Last administered on 11/12/18 00:29; Admin Dose 650 MG; Start 11/07/18 at 10:00 Loperamide HCl (Imodium Cap) 2 mg QID PRN PO DIARRHEA Last administered on 11/09/18 02:45; Admin Dose 2 MG; Start 11/07/18 at 10:30 Amiodarone HCl (Cordarone) 100 mg DAILY PO Last administered on 11/19/18 09:35; Admin Dose 100 MG; Start 11/08/18 at 09:00 Apixaban (Eliquis) 2.5 mg BID PO Last administered on 11/19/18 09:36; Admin Dose 2.5 MG; Start 11/07/18 at 12:00 Cholecalciferol (Vitamin D) 2,000 unit DAILY PO Last administered on 11/19/18 09:37; Admin Dose 2,000 UNIT; Start 11/08/18 at 09:00 Donepezil HCl (Aricept) 10 mg DAILY PO Last administered on 11/19/18 09:37; Admin Dose 10 MG; Start 11/08/18 at 09:00 Escitalopram Oxalate (Lexapro) 20 mg DAILY PO Last administered on 11/19/18 09:35; Admin Dose 20 MG; Start 11/08/18 at 09:00 EZETIMIBE (Zetia) 10 mg DAILY PO Last administered on 11/19/18 09:35; Admin Dose 10 MG; Start 11/08/18 at 09:00 Folic Acid (Folic Acid) 1 mg DAILY PO Last administered on 11/19/18 09:36; Admin Dose 1 MG; Start 11/08/18 at 09:00 Pantoprazole (Protonix Tab) 40 mg DAILY@06 PO Last administered on 11/19/18 06:28; Admin Dose 40 MG; Start 11/08/18 at 06:00 Levothyroxine Sodium (Synthroid) 25 mcg DAILY@0600 PO Last administered on 11/19/18 06:28; Admin Dose 25 MCG; Start 11/08/18 at 06:30 Ondansetron HCl (Zofran Inj) 4 mg Q6H PRN IV NAUSEA AND/OR VOMITING Last administered on 11/12/18 12:55; Admin Dose 4 MG; Start 11/08/18 at 10:30 Lorazepam (Ativan) 0.5 mg Q6H PRN PO ANXIETY Last administered on 11/17/18 21:13; Admin Dose 0.5 MG; Start 11/09/18 at 00:00 Psyllium Hydrophilic Mucilloid (Metamucil) 1 pkt DAILY PO Last administered on 11/19/18 09:34; Admin Dose 1 PKT; Start 11/10/18 at 09:00 Megestrol Acetate (Megace Susp) 400 mg BID PO Last administered on 11/19/18 09:33; Admin Dose 400 MG; Start 11/12/18 at 21:00 Potassium Chloride (Klor-Con 20) 20 meq BID PO Last administered on 11/19/18 09:37; Admin Dose 20 MEQ; Start 11/14/18 at 21:00 Bumetanide (Bumex) 1 mg BID DIURETICS PO Last administered on 11/19/18 17:09; Admin Dose 1 MG; Start 11/16/18 at 18:00 Metoprolol Tartrate (Lopressor) 50 mg BID PO Last administered on 11/19/18 09:36; Admin Dose 50 MG; Start 11/15/18 at 21:00 Cefazolin Sodium 50 ml @ 100 mls/hr Q12 IVPB Last administered on 11/19/18 09:43; Admin Dose 100 MLS/HR; Start 11/16/18 at 16:00 MALGORZATA TRISTAN MD Nov 19, 2018 19:51
[2018-11-19] MEDS: LORAZEPAM 0.5 MG TAB PO PRN (23:30)
[2018-11-20] VITALS (11 sets, daily range): BP systolic 113–140; BP diastolic 52–78; PULSE 92–106; RESP 18–20
[2018-11-20] MEDS: LEVOTHYROXINE 25 MCG TAB PO SCH (06:43)
[2018-11-20] MEDS: BUMETANIDE 1 MG TAB PO SCH ×2 (06:43→17:34)
[2018-11-20] MEDS: PANTOPRAZOLE (EC) 40 MG TAB PO SCH (06:43)
--- NOTE | 2018-11-20 07:31 | CONS ---
Assessment/Plan Assessment/Plan Hospital Course (Demo Recall) 83 yo female with N/V and diarrhea 1. Nausea, vomiting and diarrhea which have subsided now, most probably related to viral infection or of infectious etiology -resolved. 2. Atrial fibrillation for which she is on Eliquis. 3. Status post pacemaker insertion. 4. Dyslipidemia. 5. Hypothyroidism. 6. Hypertension. 7. Fatigue -likely due to depression -lexapro 8. Pedal edema pitting all the way up to knee, has reduced her drastically responded well to diuretics. 9. Coagulopathy may be due to cirrhosis of liver -improved -heme following 10. Abnormal LFT -patient CAT scan shows nodular liver which may be due to cirrhosis and also steatosis is playing a role -Hep panel unremarkable -LFTs wnl now 11. Thrombocytopenia -followed by Dr Ramsay 12. Liver cirrhosis noted in CT scan -HEARD? -hep panel unremarkable. -hepatic autoimmune panel unremarkable Plan Continue present care Pt examined and plan of care discussed with Dr Merchant Consultation Date/Type/Reason Admit Date/Time Nov 07, 2018 at 12:41 Initial Consult Date 11/12/18 Requesting Provider: REJI KAUFFMAN MD Date/Time of Note DATE: 11/20/18 TIME: 07:28 24 HR Interval Summary Free Text/Dictation Per RN, no complaints of abdominal pain. NO evidence of GI bleeding. Afebrile. WBC wnl. Exam/Review of Systems Exam Vitals Vital Signs Date Temp Pulse Resp B/P (MAP) Pulse Ox O2 O2 Flow FiO2 Time Delivery Rate 11/20/18 97.4 93 18 122/72 92 Room Air 07:12 (89) Intake and Output 11/19/18 11/19/18 11/20/18 1515:00 23:00 07:00 IntakeIntake Total 1200 ml 100 ml BalanceBalance 1200 ml 100 ml Constitutional: alert Psych: no complaints Head: normocephalic Eyes: nl sclera, PERRL Respiratory: other (non labored, symmetrical chest rise) Gastrointestinal: soft, non-tender, bowel sounds Musculoskeletal: nl extremities to inspection Neurological: nl mental status Results Result Diagram: 11/20/18 0535 11/20/18 0531 Results 24hrs Laboratory Tests Test 11/20/18 05:31 11/20/18 05:35 Sodium Level 134 L Potassium Level 4.7 Chloride Level 95 L Carbon Dioxide Level 30 Anion Gap 9 Blood Urea Nitrogen 31 H Creatinine 1.17 H Est Glomerular Filtrat Rate mL/min Glucose Level 87 Calcium Level 8.0 L Total Bilirubin 0.6 Direct Bilirubin 0.00 Indirect Bilirubin 0.6 Aspartate Amino Transf (AST/SGOT) 38 Alanine Aminotransferase (ALT/SGPT) 49 Alkaline Phosphatase 61 Total Protein 5.7 L Albumin 2.9 L Globulin 2.80 Albumin/Globulin Ratio 1.03 White Blood Count 5.9 # Red Blood Count 3.77 L Hemoglobin 12.3 Hematocrit 37.9 Mean Corpuscular Volume 100.5 Mean Corpuscular Hemoglobin 32.6 Mean Corpuscular Hemoglobin Concent 32.5 Red Cell Distribution Width 19.9 H Platelet Count 103 L Mean Platelet Volume 10.7 H Immature Granulocytes % 0.300 Neutrophils % 43.7 Lymphocytes % 42.5 Monocytes % 12.7 H Eosinophils % 0.3 Basophils % 0.5 Nucleated Red Blood Cells % 0.0 Immature Granulocytes # 0.020 Neutrophils # 2.6 Lymphocytes # 2.5 Monocytes # 0.8 Eosinophils # 0.0 Basophils # 0.0 Nucleated Red Blood Cells # 0.0 Medications Medication Current Medications Ciprofloxacin/ Dextrose 200 ml @ 200 mls/hr Q24H IVPB Last administered on 11/08/18 02:51; Admin Dose 200 MLS/HR; Start 11/08/18 at 03:00; Status Hold Metronidazole 100 ml @ 100 mls/hr Q8 IVPB Last administered on 11/07/18at 22:15; Admin Dose 100 MLS/HR; Start 11/07/18 at 14:00; Status Hold Acetaminophen (Tylenol Tab) 650 mg Q6H PRN PO MILD PAIN(1-3)OR ELEVATED TEMP Last administered on 11/12/18at 00:29; Admin Dose 650 MG; Start 11/07/18 at 10:00 Loperamide HCl (Imodium Cap) 2 mg QID PRN PO DIARRHEA Last administered on 11/09/18at 02:45; Admin Dose 2 MG; Start 11/07/18 at 10:30 Amiodarone HCl (Cordarone) 100 mg DAILY PO Last administered on 11/19/18at 09:35; Admin Dose 100 MG; Start 11/08/18 at 09:00 Apixaban (Eliquis) 2.5 mg BID PO Last administered on 11/19/18 20:30; Admin Dose 2.5 MG; Start 11/07/18 at 12:00 Cholecalciferol (Vitamin D) 2,000 unit DAILY PO Last administered on 11/19/18 09:37; Admin Dose 2,000 UNIT; Start 11/08/18 at 09:00 Donepezil HCl (Aricept) 10 mg DAILY PO Last administered on 11/19/18 09:37; Admin Dose 10 MG; Start 11/08/18 at 09:00 Escitalopram Oxalate (Lexapro) 20 mg DAILY PO Last administered on 11/19/18 09:35; Admin Dose 20 MG; Start 11/08/18 at 09:00 EZETIMIBE (Zetia) 10 mg DAILY PO Last administered on 11/19/18 09:35; Admin Dose 10 MG; Start 11/08/18 at 09:00 Folic Acid (Folic Acid) 1 mg DAILY PO Last administered on 11/19/18 09:36; Admin Dose 1 MG; Start 11/08/18 at 09:00 Pantoprazole (Protonix Tab) 40 mg DAILY@06 PO Last administered on 11/20/18 06:43; Admin Dose 40 MG; Start 11/08/18 at 06:00 Levothyroxine Sodium (Synthroid) 25 mcg DAILY@0600 PO Last administered on 11/20 06:43; Admin Dose 25 MCG; Start 11/08/18 at 06:30 Ondansetron HCl (Zofran Inj) 4 mg Q6H PRN IV NAUSEA AND/OR VOMITING Last administered on 11/12/18 12:55; Admin Dose 4 MG; Start 11/08/18 at 10:30 Lorazepam (Ativan) 0.5 mg Q6H PRN PO ANXIETY Last administered on 11/19/18 23:30; Admin Dose 0.5 MG; Start 11/09/18 at 00:00 Psyllium Hydrophilic Mucilloid (Metamucil) 1 pkt DAILY PO Last administered on 11/19/18 09:34; Admin Dose 1 PKT; Start 11/10/18 at 09:00 Megestrol Acetate (Megace Susp) 400 mg BID PO Last administered on 11/19/18 20:30; Admin Dose 400 MG; Start 11/12/18 at 21:00 Potassium Chloride (Klor-Con 20) 20 meq BID PO Last administered on 11/19/18 20:30; Admin Dose 20 MEQ; Start 11/14/18 at 21:00 Bumetanide (Bumex) 1 mg BID DIURETICS PO Last administered on 11/20/18 06:43; Admin Dose 1 MG; Start 11/16/18 at 18:00 Metoprolol Tartrate (Lopressor) 50 mg BID PO Last administered on 11/19/18 20:34; Admin Dose 50 MG; Start 11/15/18 at 21:00 Cefazolin Sodium 50 ml @ 100 mls/hr Q12 IVPB Last administered on 11/19/18 20:29; Admin Dose 100 MLS/HR; Start 11/16/18 at 16:00 HEATHER MEDRANO Nov 20, 2018 07:31
[2018-11-20] MEDS: MEGESTROL (40 MG/ML) 10ML CUP PO SCH ×2 (10:13→22:11)
[2018-11-20] MEDS: ESCITALOPRAM 10 MG TAB PO SCH (10:14)
[2018-11-20] MEDS: PSYLLIUM 28% PACKET PO SCH (10:14)
[2018-11-20] MEDS: CHOLECALCIFEROL 2,000 UNIT CAP PO SCH (10:14)
[2018-11-20] MEDS: POTASSIUM CHLORIDE (SR) 20 MEQ TAB PO SCH ×2 (10:14→22:10)
[2018-11-20] MEDS: EZETIMIBE 10 MG TAB PO SCH (10:14)
[2018-11-20] MEDS: APIXABAN 5 MG TABLET PO SCH ×2 (10:14→22:11)
[2018-11-20] MEDS: DONEPEZIL 10 MG TAB PO SCH (10:15)
[2018-11-20] MEDS: FOLIC ACID 1 MG TAB PO SCH (10:15)
[2018-11-20] MEDS: AMIODARONE 200 MG TAB PO SCH (10:15)
[2018-11-20] MEDS: METOPROLOL 50 MG TAB PO SCH (10:15)
[2018-11-20] MEDS: CEFAZOLIN 1 GM/50 ML (PMX) 50 ML IVPB SCH ×2 (10:16→22:09)
--- NOTE | 2018-11-20 16:00 | PN ---
Date/Time of Note Date/Time of Note DATE: 11/20/18 TIME: 15:58 Assessment/Plan VTE Prophylaxis Risk score (from Ns)>0 risk: 4 SCD applied (from Nsg): Yes Pharmacological prophylaxis: apixaban Lines/Catheters IV Catheter Type (from Nrs): Mid Line Urinary Cath still in place: No Assessment/Plan Hospital Course Patient continues to have generalized edema in bilateral lower extremities edema, continues on Bumex for CHF, continue current treatment and physical therapy. Assessment/Plan -Left foot cellulitis, improving. continue Ancef. -Acute decompensated systolic and diastolic congestive heart failure, continue diuretics per nephrology. -Hypokalemia, continue Klor-Con twice daily, monitor BMP. -Coagulopathy most likely to liver cirrhosis and vitamin K deficiency. Dr. Ramsay is following in hematology consultation. -Atrial fibrillation with initially rapid ventricular rates, improved, continue Eliquis and metoprolol. Dr Mayers is following in cardiology consultation. -Nausea vomiting and diarrhea for 2 days, resolved. Dr. Merchant is following in gastroenterology consultation. -Colitis per CT scan. S/p Levaquin and Flagyl. 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 Patient unable to undergo MRI due to pacemaker. Dr. Duque is following and podiatry consultation. -Hypertension, continue metoprolol Norvasc and Cozaar -PPM -Hypothyroidism -Rheumatoid arthritis Further recommendations based on clinical course. Plan of care discussed with Dr. Rayo. Result Diagram: 11/20/18 0535 11/20/18 0531 Results 24hrs Laboratory Tests Test 11/20/18 05:31 11/20/18 05:35 Sodium Level 134 L Potassium Level 4.7 Chloride Level 95 L Carbon Dioxide Level 30 Anion Gap 9 Blood Urea Nitrogen 31 H Creatinine 1.17 H Est Glomerular Filtrat Rate mL/min Glucose Level 87 Calcium Level 8.0 L Total Bilirubin 0.6 Direct Bilirubin 0.00 Indirect Bilirubin 0.6 Aspartate Amino Transf (AST/SGOT) 38 Alanine Aminotransferase (ALT/SGPT) 49 Alkaline Phosphatase 61 Total Protein 5.7 L Albumin 2.9 L Globulin 2.80 Albumin/Globulin Ratio 1.03 White Blood Count 5.9 # Red Blood Count 3.77 L Hemoglobin 12.3 Hematocrit 37.9 Mean Corpuscular Volume 100.5 Mean Corpuscular Hemoglobin 32.6 Mean Corpuscular Hemoglobin Concent 32.5 Red Cell Distribution Width 19.9 H Platelet Count 103 L Mean Platelet Volume 10.7 H Immature Granulocytes % 0.300 Neutrophils % 43.7 Lymphocytes % 42.5 Monocytes % 12.7 H Eosinophils % 0.3 Basophils % 0.5 Nucleated Red Blood Cells % 0.0 Immature Granulocytes # 0.020 Neutrophils # 2.6 Lymphocytes # 2.5 Monocytes # 0.8 Eosinophils # 0.0 Basophils # 0.0 Nucleated Red Blood Cells # 0.0 Exam/Review of Systems Exam Vitals Vital Signs Date Temp Pulse Resp B/P (MAP) Pulse Ox O2 O2 Flow FiO2 Time Delivery Rate 11/20/18 97.5 19 125/52 98 Room Air 15:06 (76) 11/20/18 106 12:07 Intake and Output 11/19/18 11/19/18 11/20/18 1515:00 23:00 07:00 IntakeIntake Total 1200 ml 100 ml BalanceBalance 1200 ml 100 ml Exam Constitutional: alert, oriented Respiratory: clear to auscultation Cardiovascular: irregular rhythm, other (L chest PPM) Gastrointestinal: soft, non-tender Musculoskeletal: nl extremities to inspection Extremities: normal pulses Neurological: nl mental status Results Results 24hrs Laboratory Tests Test 11/20/18 05:31 11/20/18 05:35 Sodium Level 134 L Potassium Level 4.7 Chloride Level 95 L Carbon Dioxide Level 30 Anion Gap 9 Blood Urea Nitrogen 31 H Creatinine 1.17 H Est Glomerular Filtrat Rate mL/min Glucose Level 87 Calcium Level 8.0 L Total Bilirubin 0.6 Direct Bilirubin 0.00 Indirect Bilirubin 0.6 Aspartate Amino Transf (AST/SGOT) 38 Alanine Aminotransferase (ALT/SGPT) 49 Alkaline Phosphatase 61 Total Protein 5.7 L Albumin 2.9 L Globulin 2.80 Albumin/Globulin Ratio 1.03 White Blood Count 5.9 # Red Blood Count 3.77 L Hemoglobin 12.3 Hematocrit 37.9 Mean Corpuscular Volume 100.5 Mean Corpuscular Hemoglobin 32.6 Mean Corpuscular Hemoglobin Concent 32.5 Red Cell Distribution Width 19.9 H Platelet Count 103 L Mean Platelet Volume 10.7 H Immature Granulocytes % 0.300 Neutrophils % 43.7 Lymphocytes % 42.5 Monocytes % 12.7 H Eosinophils % 0.3 Basophils % 0.5 Nucleated Red Blood Cells % 0.0 Immature Granulocytes # 0.020 Neutrophils # 2.6 Lymphocytes # 2.5 Monocytes # 0.8 Eosinophils # 0.0 Basophils # 0.0 Nucleated Red Blood Cells # 0.0 Medications Medication Current Medications Ciprofloxacin/ Dextrose 200 ml @ 200 mls/hr Q24H IVPB Last administered on 11/08/18 02:51; Admin Dose 200 MLS/HR; Start 11/08/18 at 03:00; Status Hold Metronidazole 100 ml @ 100 mls/hr Q8 IVPB Last administered on 11/07/18 22:15; Admin Dose 100 MLS/HR; Start 11/07/18 at 14:00; Status Hold Acetaminophen (Tylenol Tab) 650 mg Q6H PRN PO MILD PAIN(1-3)OR ELEVATED TEMP Last administered on 11/12/18 00:29; Admin Dose 650 MG; Start 11/07/18 at 10:00 Loperamide HCl (Imodium Cap) 2 mg QID PRN PO DIARRHEA Last administered on 11/09/18 02:45; Admin Dose 2 MG; Start 11/07/18 at 10:30 Amiodarone HCl (Cordarone) 100 mg DAILY PO Last administered on 11/20/18 10:15; Admin Dose 100 MG; Start 11/08/18 at 09:00 Apixaban (Eliquis) 2.5 mg BID PO Last administered on 11/20/18 10:14; Admin Dose 2.5 MG; Start 11/07/18 at 12:00 Cholecalciferol (Vitamin D) 2,000 unit DAILY PO Last administered on 11/20/18 10:14; Admin Dose 2,000 UNIT; Start 11/08/18 at 09:00 Donepezil HCl (Aricept) 10 mg DAILY PO Last administered on 11/20/18 10:15; Admin Dose 10 MG; Start 11/08/18 at 09:00 Escitalopram Oxalate (Lexapro) 20 mg DAILY PO Last administered on 11/20/18 10:14; Admin Dose 20 MG; Start 11/08/18 at 09:00 EZETIMIBE (Zetia) 10 mg DAILY PO Last administered on 11/20/18 10:14; Admin Dose 10 MG; Start 11/08/18 at 09:00 Folic Acid (Folic Acid) 1 mg DAILY PO Last administered on 11/20/18 10:15; Admin Dose 1 MG; Start 11/08/18 at 09:00 Pantoprazole (Protonix Tab) 40 mg DAILY@06 PO Last administered on 11/20/18 06:43; Admin Dose 40 MG; Start 11/08/18 at 06:00 Levothyroxine Sodium (Synthroid) 25 mcg DAILY@0600 PO Last administered on 11/20/18 06:43; Admin Dose 25 MCG; Start 11/08/18 at 06:30 Ondansetron HCl (Zofran Inj) 4 mg Q6H PRN IV NAUSEA AND/OR VOMITING Last administered on 11/12/18 12:55; Admin Dose 4 MG; Start 11/08/18 at 10:30 Lorazepam (Ativan) 0.5 mg Q6H PRN PO ANXIETY Last administered on 11/19/18 23:30; Admin Dose 0.5 MG; Start 11/09/18 at 00:00 Psyllium Hydrophilic Mucilloid (Metamucil) 1 pkt DAILY PO Last administered on 11/20/18 10:14; Admin Dose 1 PKT; Start 11/10/18 at 09:00 Megestrol Acetate (Megace Susp) 400 mg BID PO Last administered on 11/20/18 10:13; Admin Dose 400 MG; Start 11/12/18 at 21:00 Potassium Chloride (Klor-Con 20) 20 meq BID PO Last administered on 11/20/18 10:14; Admin Dose 20 MEQ; Start 11/14/18 at 21:00 Bumetanide (Bumex) 1 mg BID DIURETICS PO Last administered on 11/20/18 06:43; Admin Dose 1 MG; Start 11/16/18 at 18:00 Metoprolol Tartrate (Lopressor) 50 mg BID PO Last administered on 11/20/18 10:15; Admin Dose 50 MG; Start 11/15/18 at 21:00 Cefazolin Sodium 50 ml @ 100 mls/hr Q12 IVPB Last administered on 11/20/18 10:16; Admin Dose 100 MLS/HR; Start 11/16/18 at 16:00 OSCAR GAYTAN Nov 20, 2018 16:00
--- NOTE | 2018-11-20 16:13 | CONS ---
Assessment/Plan Cardiology NYHA: III Heart Failure Type: Acute on Chronic Heart Failure Type: Both Assessment/Plan Hospital Course (Demo Recall) Atrial fibrillation with initially rapid ventricular rates, improved Nausea, vomiting-resolved Acute decompensated systolic and diastolic congestive heart failure Acute kidney injury-improving Mitral and tricuspid valve regurgitation Possible colitis Hypertension Dyslipidemia History of pacemaker Increase patient's beta-carine to home dose of Lopressor was 100 mg twice daily Patient appears near euvolemic, continue diuretics. Being titrated as per nephrology Continue anticoagulation if no contraindication Consultation Date/Type/Reason Admit Date/Time Nov 07, 2018 at 12:41 Initial Consult Date Type of Consult Cardiology Requesting Provider: REJI KAUFFMAN MD Date/Time of Note DATE: 11/20/18 TIME: 16:12 24 HR Interval Summary Free Text/Dictation No shortness of breath, palpitations, chest pain Exam/Review of Systems Vital Signs Vitals Vital Signs Date Temp Pulse Resp B/P (MAP) Pulse Ox O2 O2 Flow FiO2 Time Delivery Rate 11/20/18 97.5 19 125/52 98 Room Air 15:06 (76) 11/20/18 106 12:07 Intake and Output 11/19/18 11/19/18 11/20/18 1515:00 23:00 07:00 IntakeIntake Total 1200 ml 100 ml BalanceBalance 1200 ml 100 ml Exam Constitutional: alert, oriented (Walking in the room, no apparent distress) Head: normocephalic Respiratory: other (Coarse breath sounds bilaterally, no wheezing) Cardiovascular: irregular rhythm (S1-S2 heard) Gastrointestinal: soft, non-tender, bowel sounds Extremities: edema Labs Result Diagram: 11/20/18 0535 11/20/18 0531 Results 24hrs Laboratory Tests Test 11/20/18 05:31 11/20/18 05:35 Sodium Level 134 L Potassium Level 4.7 Chloride Level 95 L Carbon Dioxide Level 30 Anion Gap 9 Blood Urea Nitrogen 31 H Creatinine 1.17 H Est Glomerular Filtrat Rate mL/min Glucose Level 87 Calcium Level 8.0 L Total Bilirubin 0.6 Direct Bilirubin 0.00 Indirect Bilirubin 0.6 Aspartate Amino Transf (AST/SGOT) 38 Alanine Aminotransferase (ALT/SGPT) 49 Alkaline Phosphatase 61 Total Protein 5.7 L Albumin 2.9 L Globulin 2.80 Albumin/Globulin Ratio 1.03 White Blood Count 5.9 # Red Blood Count 3.77 L Hemoglobin 12.3 Hematocrit 37.9 Mean Corpuscular Volume 100.5 Mean Corpuscular Hemoglobin 32.6 Mean Corpuscular Hemoglobin Concent 32.5 Red Cell Distribution Width 19.9 H Platelet Count 103 L Mean Platelet Volume 10.7 H Immature Granulocytes % 0.300 Neutrophils % 43.7 Lymphocytes % 42.5 Monocytes % 12.7 H Eosinophils % 0.3 Basophils % 0.5 Nucleated Red Blood Cells % 0.0 Immature Granulocytes # 0.020 Neutrophils # 2.6 Lymphocytes # 2.5 Monocytes # 0.8 Eosinophils # 0.0 Basophils # 0.0 Nucleated Red Blood Cells # 0.0 Medications Medications Current Medications Ciprofloxacin/ Dextrose 200 ml @ 200 mls/hr Q24H IVPB Last administered on 11/08/18 02:51; Admin Dose 200 MLS/HR; Start 11/08/18 at 03:00; Status Hold Metronidazole 100 ml @ 100 mls/hr Q8 IVPB Last administered on 11/07/18 22:15; Admin Dose 100 MLS/HR; Start 11/07/18 at 14:00; Status Hold Acetaminophen (Tylenol Tab) 650 mg Q6H PRN PO MILD PAIN(1-3)OR ELEVATED TEMP Last administered on 11/12/18 00:29; Admin Dose 650 MG; Start 11/07/18 at 10:00 Loperamide HCl (Imodium Cap) 2 mg QID PRN PO DIARRHEA Last administered on 11/09/18 02:45; Admin Dose 2 MG; Start 11/07/18 at 10:30 Amiodarone HCl (Cordarone) 100 mg DAILY PO Last administered on 11/20/18 10:15; Admin Dose 100 MG; Start 11/08/18 at 09:00 Apixaban (Eliquis) 2.5 mg BID PO Last administered on 11/20/18 10:14; Admin Dose 2.5 MG; Start 11/07/18 at 12:00 Cholecalciferol (Vitamin D) 2,000 unit DAILY PO Last administered on 11/20/18 10:14; Admin Dose 2,000 UNIT; Start 11/08/18 at 09:00 Donepezil HCl (Aricept) 10 mg DAILY PO Last administered on 11/20/18 10:15; Admin Dose 10 MG; Start 11/08/18 at 09:00 Escitalopram Oxalate (Lexapro) 20 mg DAILY PO Last administered on 11/20/18 10:14; Admin Dose 20 MG; Start 11/08/18 at 09:00 EZETIMIBE (Zetia) 10 mg DAILY PO Last administered on 11/20/18 10:14; Admin Dose 10 MG; Start 11/08/18 at 09:00 Folic Acid (Folic Acid) 1 mg DAILY PO Last administered on 11/20/18 10:15; Admin Dose 1 MG; Start 11/08/18 at 09:00 Pantoprazole (Protonix Tab) 40 mg DAILY@06 PO Last administered on 11/20/18 06:43; Admin Dose 40 MG; Start 11/08/18 at 06:00 Levothyroxine Sodium (Synthroid) 25 mcg DAILY@0600 PO Last administered on 11/20/18 06:43; Admin Dose 25 MCG; Start 11/08/18 at 06:30 Ondansetron HCl (Zofran Inj) 4 mg Q6H PRN IV NAUSEA AND/OR VOMITING Last administered on 11/12/18 12:55; Admin Dose 4 MG; Start 11/08/18 at 10:30 Lorazepam (Ativan) 0.5 mg Q6H PRN PO ANXIETY Last administered on 11/19/18 23:30; Admin Dose 0.5 MG; Start 11/09/18 at 00:00 Psyllium Hydrophilic Mucilloid (Metamucil) 1 pkt DAILY PO Last administered on 11/20/18 10:14; Admin Dose 1 PKT; Start 11/10/18 at 09:00 Megestrol Acetate (Megace Susp) 400 mg BID PO Last administered on 11/20/18 10:13; Admin Dose 400 MG; Start 11/12/18 at 21:00 Potassium Chloride (Klor-Con 20) 20 meq BID PO Last administered on 11/20/18 10:14; Admin Dose 20 MEQ; Start 11/14/18 at 21:00 Bumetanide (Bumex) 1 mg BID DIURETICS PO Last administered on 11/20/18 06:43; Admin Dose 1 MG; Start 11/16/18 at 18:00 Metoprolol Tartrate (Lopressor) 50 mg BID PO Last administered on 6/18/19at 10:15; Admin Dose 50 MG; Start 11/15/18 at 21:00 Cefazolin Sodium 50 ml @ 100 mls/hr Q12 IVPB Last administered on 11/20/18at 10:16; Admin Dose 100 MLS/HR; Start 11/16/18 at 16:00 Perico Mayers DO Nov 20, 2018 16:13
[2018-11-20] MEDS: METOPROLOL 100 MG TAB PO SCH (22:11)
[2018-11-21] VITALS (11 sets, daily range): BP systolic 115–136; BP diastolic 59–87; PULSE 86–105; RESP 18–20
[2018-11-21] MEDS: LORAZEPAM 0.5 MG TAB PO PRN ×2 (00:15→23:27)
--- NOTE | 2018-11-21 03:13 | PN ---
DATE: 11/20/2018 SUBJECTIVE: The patient is stable. No events overnight. No fevers, chills, nausea, vomiting. OBJECTIVE: VITAL SIGNS: Blood pressure is 120/71, respiration 18, pulse 103, temperature 97.4. HEENT: Head is normocephalic. NECK: Supple. HEART: Regular rate. LUNGS: Show diminished breath sounds at the base. ABDOMEN: Soft, nontender to palpation without rebound or guarding. EXTREMITIES: Negative for clubbing, cyanosis. Trace edema. DERMATOLOGIC: No rashes. MUSCULOSKELETAL: No joint effusions. NEUROLOGIC: No change in exam. MEDICATIONS: Reviewed. LABORATORY DATA: Has been reviewed. ASSESSMENT AND PLAN: 1. Nonoliguric acute kidney injury on top of chronic kidney disease stage III. Etiology of acute ki dney injury is secondary to hemodynamics, possible cardiorenal syndrome. The patient's renal functio n has improved. Creatinine is fluctuating. Continue to monitor closely on current diuretic regimen. 2. Hypokalemia, improved. Continue to monitor. 3. Hyponatremia. Etiology is possibly due to acute kidney injury causing decreased free water urina ry excretion. Continue to monitor. 4. Mineral bone disorder. Monitor calcium and phosphorus levels. 5. Mild hematuria secondary to Nguyen catheter, resolved. 6. Decompensated heart failure. The patient appears near euvolemic on exam. Continue current diure tic therapy. 7. Atrial fibrillation. Continue medical management. 8. Nausea and vomiting, improved. 9. Possible colitis. Continue to monitor. Continue antibiotic therapy. Dictated By: BEENA ARAUJO/NTS Conf#: [id number] DID#: [id number] CC: REJI KAUFFMAN MD;*EndCC*
[2018-11-21] MEDS: LEVOTHYROXINE 25 MCG TAB PO SCH (06:28)
[2018-11-21] MEDS: PANTOPRAZOLE (EC) 40 MG TAB PO SCH (06:28)
[2018-11-21] MEDS: BUMETANIDE 1 MG TAB PO SCH ×2 (06:29→17:05)
[2018-11-21] MEDS: AMIODARONE 200 MG TAB PO SCH (08:31)
[2018-11-21] MEDS: DONEPEZIL 10 MG TAB PO SCH (08:31)
[2018-11-21] MEDS: APIXABAN 5 MG TABLET PO SCH ×2 (08:31→21:39)
[2018-11-21] MEDS: ESCITALOPRAM 10 MG TAB PO SCH (08:31)
[2018-11-21] MEDS: PSYLLIUM 28% PACKET PO SCH (08:32)
[2018-11-21] MEDS: CHOLECALCIFEROL 2,000 UNIT CAP PO SCH (08:32)
[2018-11-21] MEDS: FOLIC ACID 1 MG TAB PO SCH (08:32)
[2018-11-21] MEDS: METOPROLOL 100 MG TAB PO SCH ×2 (08:32→21:42)
[2018-11-21] MEDS: CEFAZOLIN 1 GM/50 ML (PMX) 50 ML IVPB SCH ×2 (08:32→21:38)
[2018-11-21] MEDS: EZETIMIBE 10 MG TAB PO SCH (08:32)
[2018-11-21] MEDS: MEGESTROL (40 MG/ML) 10ML CUP PO SCH ×2 (08:34→21:38)
--- NOTE | 2018-11-21 08:39 | CONS ---
DATE OF ADMISSION: 11/07/2018 DATE OF CONSULTATION: 11/20/2018 TYPE OF CONSULTATION: Rheumatology. HISTORY OF PRESENT ILLNESS: The patient is an 83-year-old woman, very well known to me for many years, who has a history of rheumatoid arthritis and has been on methotrexate and Remicade infus ions for several years and doing very well in regard to the arthritis. The patient was admitted on 11/09/2018 with a recent onset of diarrhea, nausea, vomiting, possibly du e to a viral infection. She subsequently developed renal insufficiency with creatinine going up to 2 .56, but progressively improved her present one of approximately 1.1. She became at one point very e dematous and this has improved somewhat. She was also noted to develop a significant congestive hear t failure and this has been improving liver function tests, were slightly elevated, and this has retu rned to normal. She was mildly hypothyroid with a TSH of 7, the patient has a history of atrial fibr illation and on admission, she did have a rapid respiratory rate, which normalized. She also has a h istory of pacemaker. In addition, she also was noted to be somewhat thrombocytopenic with a platelet s at 105,000 and imaging studies show evidence consistent with subtle changes possibly related to cir rhosis. The patient at present feels fatigued and possibly somewhat short of breath. She denies pain other t kearns mildly at the knees and left low back. The patient has been last seen in my office on 10/25/2018. She received her last Remicade treatment at that point. LABORATORY STUDIES: Basically normal. She did have a BUN of 22, creatinine of 1.26. Normal transam inases, normal CBC with white count of 4900, hematocrit 39.3, platelets 177,000. Sedimentation rate and C-reactive protein were both normal. She did have iron of 102 with 35% saturation. PAST MEDICAL HISTORY: Rheumatoid arthritis, history of atrial fibrillation on Eliquis, hypertension, hypothyroidism, mild renal insufficiency, spinal stenosis at the lumbar region, hyperlipidemia, oste oarthritis at the knees and likely degenerative disk disease. MEDICATIONS: Prior to admission included: 1. Levothyroxine. 2. Amlodipine. 3. Metoprolol. 4. Remicade. 5. Vascepa. 6. Amiodarone. 7. Donepezil. 8. Escitalopram. 9. Eliquis. 10. Nexium. 11. Losartan. 12. Zetia. 13. Calcium. 14. Folic acid. 15. Vitamin D. 16. Methotrexate 10 mg weekly. 17. Iron supplementation. ALLERGIES: NO KNOWN ALLERGIES. PAST SURGICAL HISTORY: Disk surgery in 2008 and 2009, pacemaker placement in 2015. FAMILY HISTORY: Noncontributory. SOCIAL HISTORY: She denies history of smoking or alcohol use. REVIEW OF SYSTEMS: Rheumatologic review of systems is basically unremarkable except as above. PHYSICAL EXAMINATION: GENERAL: Well-developed woman, alert and oriented. SKIN: Without acute rashes. HEENT: Without acute oral or ocular lesions noted. NECK: Without obvious lymphadenopathy. Supple. HEART: Irregularly irregular. LUNGS: Few crackles in the bases at the present. ABDOMEN: Soft without masses or tenderness. EXTREMITIES: With trace to 1+ edema at the legs. No cyanosis. NEUROLOGIC: Grossly intact. MUSCULOSKELETAL: Tender trigger points in the upper and lower back. Mild tenderness in the right kn ee without synovitis. Other joints with good range of motion without synovitis or tenderness at pres ent. ASSESSMENT: 1. Rheumatoid arthritis, seropositive well controlled on recent medications. 2. Atrial fibrillation. 3. Recent congestive heart failure. 4. Recent renal insufficiency, increased, which has improved. 5. Thrombocytopenia, possibly related to liver status. Possible mild cirrhosis. 6. Hypothyroidism. 7. Obesity. 8. Hyperlipidemia. PLAN: 1. Agree with present management. 2. We will certainly stop the Remicade in view of the recent congestive heart failure. 3. We will stop the methotrexate as there is a question of cirrhosis. 4. In the future we will reevaluate regarding treatment for her rheumatoid arthritis, which at prese nt seems stable, symptomatically and serologically. Thank you for allowing me see the patient rheumatologically. We will follow. Sincerely, Dictated By: WILLIAN RODRÍGUEZ MD CW/NTS Conf#: [id number] DID#: [id number] CC: REJI KAUFFMAN MD; ONOFRE GREGORIO DO;*EndCC*
[2018-11-21] MEDS: POTASSIUM CHLORIDE (SR) 20 MEQ TAB PO SCH ×2 (08:57→21:39)
--- NOTE | 2018-11-21 13:03 | PN ---
DATE: 11/21/2018 SUBJECTIVE: The patient is stable, no events overnight. OBJECTIVE: VITAL SIGNS: Blood pressure is 136/77, pulse 100, respirations 18, temperature 97.5. HEENT: Head is normocephalic. NECK: Supple. HEART: Regular rate. LUNGS: Show diminished breath sounds at the base. ABDOMEN: Soft, nontender to palpation. No rebound or guarding. EXTREMITIES: Negative for clubbing, cyanosis, no edema. DERMATOLOGIC: No rashes. MUSCULOSKELETAL: No joint effusion. NEUROLOGIC: No change in exam. MEDICATIONS: Reviewed. LABORATORY DATA: Reviewed. ASSESSMENT AND PLAN: 1. Nonoliguric acute kidney injury on top of chronic kidney disease stage III. Etiology of acute ki dney injury is secondary to hemodynamics. The patient's renal function is stable. Continue current treatment plan. Continue current diuretic regimen. 2. Hypokalemia, improved. Continue potassium chloride. 3. Hypernatremia, resolved. Continue to monitor. 4. Mineral bone disorder. Monitor calcium and phosphorus levels. 5. Mild hypernatremia, resolved. 6. Heart failure. The patient appears near euvolemic. Continue current diuretic regimen. 7. Atrial fibrillation. Continue medical management. 8. Possible colitis. Continue current antibiotic regimen. 9. Nausea, vomiting, improving. 10. Rheumatoid arthritis. Continue current treatment plan. Dictated By: BEENA MEDINA DO NR/NTS Conf#: [id number] DID#: [id number] CC: ONOFRE GREGORIO DO; REJI KAUFFMAN MD;*EndCC*
--- NOTE | 2018-11-21 14:23 | CONS ---
Assessment/Plan Assessment/Plan Hospital Course (Demo Recall) #Coagulopathy -pt is noted to have an elevated PT (26sec) and PTT(35 sec). Today patient;s PTT is within normal limits. PT mixing study corrected. This essentially rules out a factor inhibitor. This makes the most likely cause of her coagulopathy her underlying cirrhosis and Vitamin K deficiency -s/p oral Vitamin K 5mg po x 3 days -INR now 1.2 -continue eliquis at this time for afib #Colitis -GI consulted -continue Levaquin and Flagyl #JACKELIN on CKD -pt getting fluids per osito #CHF -pt on bumex #Afib -may continue eliquis as mentioned above #HTN -continue current BP meds #RA -on remicaid as an out patient Thank you for the opportunity to participate in this patients care A total of 40 minutes of face to face time was spent speaking with the patient, of which greater than 50% was spent in counseling and coordination of care and the detailed question and answer session. Consultation Date/Type/Reason Admit Date/Time Nov 07, 2018 at 12:41 Initial Consult Date 11/12/18 Type of Consult hematology Reason for Consultation coagulopathy Requesting Provider: REJI KAUFFMAN MD Date/Time of Note DATE: 11/21/18 TIME: 14:22 24 HR Interval Summary Free Text/Dictation no acute overnight events Exam/Review of Systems Exam Vitals Vital Signs Date Temp Pulse Resp B/P (MAP) Pulse Ox O2 O2 Flow FiO2 Time Delivery Rate 11/21/18 96 12:07 11/21/18 98.2 19 115/59 100 Room Air 11:33 (77) Intake and Output 11/20/18 11/20/18 11/21/18 1515:00 23:00 07:00 IntakeIntake Total 50 ml 750 ml BalanceBalance 50 ml 750 ml Constitutional: alert, frail Psych: no complaints, confusion Head: normocephalic Eyes: nl conjunctiva ENMT: nl external ears & nose Neck: supple Respiratory: clear to auscultation Cardiovascular: regular rate and rhythm Gastrointestinal: soft Extremities: edema Results Result Diagram: 11/20/18 0535 11/21/18 0526 Results 24hrs Laboratory Tests Test 11/21/18 05:26 Sodium Level 135 Potassium Level 4.3 Chloride Level 98 Carbon Dioxide Level 29 Anion Gap 8 Blood Urea Nitrogen 35 H Creatinine 1.20 H Est Glomerular Filtrat Rate mL/min Glucose Level 145 # Calcium Level 8.2 L Phosphorus Level 3.7 Magnesium Level 1.8 Medications Medication Current Medications Ciprofloxacin/ Dextrose 200 ml @ 200 mls/hr Q24H IVPB Last administered on 11/08/18 02:51; Admin Dose 200 MLS/HR; Start 11/08/18 at 03:00; Status Hold Metronidazole 100 ml @ 100 mls/hr Q8 IVPB Last administered on 11/07/18 22:15; Admin Dose 100 MLS/HR; Start 11/07/18 at 14:00; Status Hold Acetaminophen (Tylenol Tab) 650 mg Q6H PRN PO MILD PAIN(1-3)OR ELEVATED TEMP Last administered on 11/12/18 00:29; Admin Dose 650 MG; Start 11/07/18 at 10:00 Loperamide HCl (Imodium Cap) 2 mg QID PRN PO DIARRHEA Last administered on 11/09/18 02:45; Admin Dose 2 MG; Start 11/07/18 at 10:30 Amiodarone HCl (Cordarone) 100 mg DAILY PO Last administered on 11/21/18 08:31; Admin Dose 100 MG; Start 11/08/18 at 09:00 Apixaban (Eliquis) 2.5 mg BID PO Last administered on 11/21/18 08:31; Admin Dose 2.5 MG; Start 11/07/18 at 12:00 Cholecalciferol (Vitamin D) 2,000 unit DAILY PO Last administered on 11/21/18 08:32; Admin Dose 2,000 UNIT; Start 11/08/18 at 09:00 Donepezil HCl (Aricept) 10 mg DAILY PO Last administered on 11/21/18 08:31; A dmin Dose 10 MG; Start 11/08/18 at 09:00 Escitalopram Oxalate (Lexapro) 20 mg DAILY PO Last administered on 11/21/18 08:31; Admin Dose 20 MG; Start 11/08/18 at 09:00 EZETIMIBE (Zetia) 10 mg DAILY PO Last administered on 11/21/18 08:32; Admin Dose 10 MG; Start 11/08/18 at 09:00 Folic Acid (Folic Acid) 1 mg DAILY PO Last administered on 11/21/18 08:32; Admin Dose 1 MG; Start 11/08/18 at 09:00 Pantoprazole (Protonix Tab) 40 mg DAILY@06 PO Last administered on 11/21/18 06:28; Admin Dose 40 MG; Start 11/08/18 at 06:00 Levothyroxine Sodium (Synthroid) 25 mcg DAILY@0600 PO Last administered on 06:28; Admin Dose 25 MCG; Start 11/08/18 at 06:30 Ondansetron HCl (Zofran Inj) 4 mg Q6H PRN IV NAUSEA AND/OR VOMITING Last administered on 11/12/18 12:55; Admin Dose 4 MG; Start 11/08/18 at 10:30 Lorazepam (Ativan) 0.5 mg Q6H PRN PO ANXIETY Last administered on 11/21/18 00:15; Admin Dose 0.5 MG; Start 11/09/18 at 00:00 Psyllium Hydrophilic Mucilloid (Metamucil) 1 pkt DAILY PO Last administered on 11/21/18 08:32; Admin Dose 1 PKT; Start 11/10/18 at 09:00 Megestrol Acetate (Megace Susp) 400 mg BID PO Last administered on 11/21/18 08:34; Admin Dose 400 MG; Start 11/12/18 at 21:00 Potassium Chloride (Klor-Con 20) 20 meq BID PO Last administered on 11/21/18 08:57; Admin Dose 20 MEQ; Start 11/14/18 at 21:00 Bumetanide (Bumex) 1 mg BID DIURETICS PO Last administered on 11/21/18 06:29; Admin Dose 1 MG; Start 11/16/18 at 18:00 Cefazolin Sodium 50 ml @ 100 mls/hr Q12 IVPB Last administered on 11/21/18 08:32; Admin Dose 100 MLS/HR; Start 11/16/18 at 16:00 Metoprolol Tartrate (Lopressor) 100 mg BID PO Last administered on 11/21/18 08:32; Admin Dose 100 MG; Start 11/20/18 at 21:00 CRISTIAN LEBLANC M.D. Nov 21, 2018 14:23
--- NOTE | 2018-11-21 15:08 | CONS ---
Assessment/Plan Cardiology NYHA: III Heart Failure Type: Acute on Chronic Heart Failure Type: Both Assessment/Plan Hospital Course (Demo Recall) Atrial fibrillation with initially rapid ventricular rates, improved Nausea, vomiting-resolved Acute decompensated systolic and diastolic congestive heart failure Acute kidney injury-improving Mitral and tricuspid valve regurgitation Possible colitis Hypertension Dyslipidemia History of pacemaker Beta-carine recently increased, heart rate trend remained stable Patient appears near euvolemic, continue diuretics. Being titrated as per nephrology Continue anticoagulation if no contraindication Extensive discussion had with patient's daughter at bedside, she is concerned of her mother's multiple medical problems, she denies any history of renal dysfunction and tells me her heart was "stable". I did discuss with the patient's daughter that her initial creatinine upon admission was elevated to 1.5, she does have a cardiomyopathy which is been long-standing and she was in agreement. Her diuretics are being adjusted by nephrology based on her kidney function, volume status and hemodynamics. She does also admit to patient's depression and this could be contributing factor to her overall medical state. Would consider aggressive physical therapy as well if no contraindication Consultation Date/Type/Reason Admit Date/Time Nov 07, 2018 at 12:41 Initial Consult Date Type of Consult Cardiology Requesting Provider: REJI KAUFFMAN MD Date/Time of Note DATE: 11/21/18 TIME: 15:05 24 HR Interval Summary Free Text/Dictation Denies shortness of breath, chest pain. As per daughter, complaining of lower extremity edema and fatigue Exam/Review of Systems Vital Signs Vitals Vital Signs Date Temp Pulse Resp B/P (MAP) Pulse Ox O2 O2 Flow FiO2 Time Delivery Rate 11/21/18 96 12:07 11/21/18 98.2 19 115/59 100 Room Air 11:33 (77) Intake and Output 11/20/18 11/20/18 11/21/18 1515:00 23:00 07:00 IntakeIntake Total 50 ml 750 ml BalanceBalance 50 ml 750 ml Exam Constitutional: alert, oriented (No apparent distress, family bedside) Head: normocephalic Respiratory: other (Coarse breath sounds bilaterally, no wheezing) Cardiovascular: irregular rhythm (S1-S2 heard) Gastrointestinal: soft, non-tender, bowel sounds Extremities: edema Labs Result Diagram: 11/20/18 0535 11/21/18 0526 Results 24hrs Laboratory Tests Test 11/21/18 05:26 Sodium Level 135 Potassium Level 4.3 Chloride Level 98 Carbon Dioxide Level 29 Anion Gap 8 Blood Urea Nitrogen 35 H Creatinine 1.20 H Est Glomerular Filtrat Rate mL/min Glucose Level 145 # Calcium Level 8.2 L Phosphorus Level 3.7 Magnesium Level 1.8 Medications Medications Current Medications Ciprofloxacin/ Dextrose 200 ml @ 200 mls/hr Q24H IVPB Last administered on 11/08/18 02:51; Admin Dose 200 MLS/HR; Start 11/08/18 at 03:00; Status Hold Metronidazole 100 ml @ 100 mls/hr Q8 IVPB Last administered on 11/07/18at 22:15; Admin Dose 100 MLS/HR; Start 11/07/18 at 14:00; Status Hold Acetaminophen (Tylenol Tab) 650 mg Q6H PRN PO MILD PAIN(1-3)OR ELEVATED TEMP Last administered on 11/12/18 00:29; Admin Dose 650 MG; Start 11/07/18 at 10:00 Loperamide HCl (Imodium Cap) 2 mg QID PRN PO DIARRHEA Last administered on 11/09/18 02:45; Admin Dose 2 MG; Start 11/07/18 at 10:30 Amiodarone HCl (Cordarone) 100 mg DAILY PO Last administered on 11/21/18 08:31; Admin Dose 100 MG; Start 11/08/18 at 09:00 Apixaban (Eliquis) 2.5 mg BID PO Last administered on 11/21/18 08:31; Admin Dose 2.5 MG; Start 11/07/18 at 12:00 Cholecalciferol (Vitamin D) 2,000 unit DAILY PO Last administered on 11/21/18 08:32; Admin Dose 2,000 UNIT; Start 11/08/18 at 09:00 Donepezil HCl (Aricept) 10 mg DAILY PO Last administered on 11/21/18 08:31; Admin Dose 10 MG; Start 11/08/18 at 09:00 Escitalopram Oxalate (Lexapro) 20 mg DAILY PO Last administered on 11/21/18 08:31; Admin Dose 20 MG; Start 11/08/18 at 09:00 EZETIMIBE (Zetia) 10 mg DAILY PO Last administered on 11/21/18 08:32; Admin Dose 10 MG; Start 11/08/18 at 09:00 Folic Acid (Folic Acid) 1 mg DAILY PO Last administered on 11/21/18 08:32; Admin Dose 1 MG; Start 11/08/18 at 09:00 Pantoprazole (Protonix Tab) 40 mg DAILY@06 PO Last administered on 11/21/18 06:28; Admin Dose 40 MG; Start 11/08/18 at 06:00 Levothyroxine Sodium (Synthroid) 25 mcg DAILY@0600 PO Last administered on 11/21/18 06:28; Admin Dose 25 MCG; Start 11/08/18 at 06:30 Ondansetron HCl (Zofran Inj) 4 mg Q6H PRN IV NAUSEA AND/OR VOMITING Last administered on 11/12/18 12:55; Admin Dose 4 MG; Start 11/08/18 at 10:30 Lorazepam (Ativan) 0.5 mg Q6H PRN PO ANXIETY Last administered on 11/21/18 00:15; Admin Dose 0.5 MG; Start 11/09/18 at 00:00 Psyllium Hydrophilic Mucilloid (Metamucil) 1 pkt DAILY PO Last administered on 11/21/18 08:32; Admin Dose 1 PKT; Start 11/10/18 at 09:00 Megestrol Acetate (Megace Susp) 400 mg BID PO Last administered on 11/21/18 08:34; Admin Dose 400 MG; Start 11/12/18 at 21:00 Potassium Chloride (Klor-Con 20) 20 meq BID PO Last administered on 11/21/18 08:57; Admin Dose 20 MEQ; Start 11/14/18 at 21:00 Bumetanide (Bumex) 1 mg BID DIURETICS PO Last administered on 11/21/18 06:29; Admin Dose 1 MG; Start 11/16/18 at 18:00 Cefazolin Sodium 50 ml @ 100 mls/hr Q12 IVPB Last administered on 11/21/18 08:32; Admin Dose 100 MLS/HR; Start 11/16/18 at 16:00 Metoprolol Tartrate (Lopressor) 100 mg BID PO Last administered on 11/21/18 08:32; Admin Dose 100 MG; Start 11/20/18 at 21:00 Perico Mayers DO Nov 21, 2018 15:08
--- NOTE | 2018-11-21 15:33 | PN ---
Date/Time of Note Date/Time of Note DATE: 11/21/18 TIME: 15:16 Assessment/Plan VTE Prophylaxis Risk score (from Nsg)>0 risk: 4 SCD applied (from Nsg): Yes Pharmacological prophylaxis: apixaban Lines/Catheters IV Catheter Type (from Nrsg): Mid Line Urinary Cath still in place: No Assessment/Plan Hospital Course Patient's complaints of generalized weakness and edema, continues on Bumex for CHF, atrial fibrillation at a relatively controlled rate, patient have poor appetite however tolerates diet without nausea vomiting or abdominal pain. Continue current treatment and physical therapy. Patient's condition and plan of care discussed with patient's daughter at the bedside, all questions answered. Assessment/Plan -Left foot cellulitis, improving. continue Ancef. -Acute decompensated systolic and diastolic congestive heart failure, continue diuretics per nephrology. -Nonoliguric acute kidney injury on top of chronic kidney disease stage III. Continue Bumex. -Coagulopathy most likely to liver cirrhosis and vitamin K deficiency. Dr. Ramsay is following in hematology consultation. -Atrial fibrillation with initially rapid ventricular rates, improved, continue Eliquis and metoprolol. Dr Mayers is following in cardiology consultation. -Nausea vomiting and diarrhea for 2 days, resolved. Dr. Merchant is following in gastroenterology consultation. -Colitis per CT scan. S/p Levaquin and Flagyl. 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 Patient unable to undergo MRI due to pacemaker. Dr. Duque is following and podiatry consultation. -Hypertension, continue metoprolol Norvasc and Cozaar -PPM -Hypothyroidism, continue levothyroxine. -Rheumatoid arthritis, Dr Grant is following in rheumatology consultation. Time spent in management of this patient and talking to family is 30 minutes. Further recommendations based on clinical course. Plan of care discussed with Dr. Rayo. Result Diagram: 11/20/18 0535 11/21/18 0526 Results 24hrs Laboratory Tests Test 11/21/18 05:26 Sodium Level 135 Potassium Level 4.3 Chloride Level 98 Carbon Dioxide Level 29 Anion Gap 8 Blood Urea Nitrogen 35 H Creatinine 1.20 H Est Glomerular Filtrat Rate mL/min Glucose Level 145 # Calcium Level 8.2 L Phosphorus Level 3.7 Magnesium Level 1.8 Exam/Review of Systems Exam Vitals Vital Signs Date Temp Pulse Resp B/P (MAP) Pulse Ox O2 O2 Flow FiO2 Time Delivery Rate 11/21/18 96 12:07 11/21/18 98.2 19 115/59 100 Room Air 11:33 (77) Intake and Output 11/20/18 11/20/18 11/21/18 1515:00 23:00 07:00 IntakeIntake Total 50 ml 750 ml BalanceBalance 50 ml 750 ml Exam Constitutional: alert, oriented Respiratory: clear to auscultation Cardiovascular: irregular rhythm, other (L chest PPM) Gastrointestinal: soft, non-tender Musculoskeletal: nl extremities to inspection Extremities: normal pulses Neurological: nl mental status Results Results 24hrs Laboratory Tests Test 11/21/18 05:26 Sodium Level 135 Potassium Level 4.3 Chloride Level 98 Carbon Dioxide Level 29 Anion Gap 8 Blood Urea Nitrogen 35 H Creatinine 1.20 H Est Glomerular Filtrat Rate mL/min Glucose Level 145 # Calcium Level 8.2 L Phosphorus Level 3.7 Magnesium Level 1.8 Medications Medication Current Medications Ciprofloxacin/ Dextrose 200 ml @ 200 mls/hr Q24H IVPB Last administered on 11/08/18 02:51; Admin Dose 200 MLS/HR; Start 11/08/18 at 03:00; Status Hold Metronidazole 100 ml @ 100 mls/hr Q8 IVPB Last administered on 11/07/18 22:15; Admin Dose 100 MLS/HR; Start 11/07/18 at 14:00; Status Hold Acetaminophen (Tylenol Tab) 650 mg Q6H PRN PO MILD PAIN(1-3)OR ELEVATED TEMP Last administered on 11/12/18at 00:29; Admin Dose 650 MG; Start 11/07/18 at 10:00 Loperamide HCl (Imodium Cap) 2 mg QID PRN PO DIARRHEA Last administered on 11/09/18 02:45; Admin Dose 2 MG; Start 11/07/18 at 10:30 Amiodarone HCl (Cordarone) 100 mg DAILY PO Last administered on 11/21/18 08:31; Admin Dose 100 MG; Start 11/08/18 at 09:00 Apixaban (Eliquis) 2.5 mg BID PO Last administered on 11/21/18 08:31; Admin Dose 2.5 MG; Start 11/07/18 at 12:00 Cholecalciferol (Vitamin D) 2,000 unit DAILY PO Last administered on 11/21/18 08:32; Admin Dose 2,000 UNIT; Start 11/08/18 at 09:00 Donepezil HCl (Aricept) 10 mg DAILY PO Last administered on 11/21/18 08:31; Admin Dose 10 MG; Start 11/08/18 at 09:00 Escitalopram Oxalate (Lexapro) 20 mg DAILY PO Last administered on 11/21/18 08:31; Admin Dose 20 MG; Start 11/08/18 at 09:00 EZETIMIBE (Zetia) 10 mg DAILY PO Last administered on 11/21/18 08:32; Admin Dose 10 MG; Start 11/08/18 at 09:00 Folic Acid (Folic Acid) 1 mg DAILY PO Last administered on 11/21/18 08:32; Admin Dose 1 MG; Start 11/08/18 at 09:00 Pantoprazole (Protonix Tab) 40 mg DAILY@06 PO Last administered on 11/21/18 06:28; Admin Dose 40 MG; Start 11/08/18 at 06:00 Levothyroxine Sodium (Synthroid) 25 mcg DAILY@0600 PO Last administered on 11/21/18 06:28; Admin Dose 25 MCG; Start 11/08/18 at 06:30 Ondansetron HCl (Zofran Inj) 4 mg Q6H PRN IV NAUSEA AND/OR VOMITING Last administered on 11/12/18 12:55; Admin Dose 4 MG; Start 11/08/18 at 10:30 Lorazepam (Ativan) 0.5 mg Q6H PRN PO ANXIETY Last administered on 11/21/18 00:15; Admin Dose 0.5 MG; Start 11/09/18 at 00:00 Psyllium Hydrophilic Mucilloid (Metamucil) 1 pkt DAILY PO Last administered on 11/21/18 08:32; Admin Dose 1 PKT; Start 11/10/18 at 09:00 Megestrol Acetate (Megace Susp) 400 mg BID PO Last administered on 11/21/18 08:34; Admin Dose 400 MG; Start 11/12/18 at 21:00 Potassium Chloride (Klor-Con 20) 20 meq BID PO Last administered on 11/21/18 08:57; Admin Dose 20 MEQ; Start 11/14/18 at 21:00 Bumetanide (Bumex) 1 mg BID DIURETICS PO Last administered on 11/21/18 06:29; Admin Dose 1 MG; Start 11/16/18 at 18:00 Cefazolin Sodium 50 ml @ 100 mls/hr Q12 IVPB Last administered on 11/21/18 08:32; Admin Dose 100 MLS/HR; Start 11/16/18 at 16:00 Metoprolol Tartrate (Lopressor) 100 mg BID PO Last administered on 11/21/18 08:32; Admin Dose 100 MG; Start 11/20/18 at 21:00 OSCAR GAYTAN Nov 21, 2018 15:26
--- NOTE | 2018-11-21 17:21 | CONS ---
Assessment/Plan Assessment/Plan Assessment/Plan (Daily) 1. Nausea, vomiting and diarrhea which have subsided -resolved. 2. Atrial fibrillation for which she is on Eliquis. 3. Status post pacemaker insertion. 4. Dyslipidemia. 5. Hypothyroidism. 6. Hypertension. 7. Fatigue -likely due to depression -lexapro 8. Pedal edema pitting all the way up to knee, has reduced her drastically responded well to diuretics. 9. Coagulopathy may be due to cirrhosis of liver -improved -heme following 10. Abnormal LFT -patient CAT scan shows nodular liver which may be due to cirrhosis and also steatosis is playing a role -Hep panel unremarkable -LFTs wnl now 11. Thrombocytopenia -followed by Dr Ramsay 12. Liver cirrhosis noted in CT scan -HEARD? -hep panel unremarkable. -hepatic autoimmune panel unremarkable Plan Continue present care discussed with the daughter [id number] Consultation Date/Type/Reason Admit Date/Time Nov 07, 2018 at 12:41 Initial Consult Date Requesting Provider: REJI KAUFFMAN MD Date/Time of Note DATE: 11/21/18 TIME: 17:20 24 HR Interval Summary Free Text/Dictation Patient feels very tired as per the daughter No nausea no vomiting no abdominal pain Exam/Review of Systems Exam Vitals Vital Signs Date Temp Pulse Resp B/P (MAP) Pulse Ox O2 O2 Flow FiO2 Time Delivery Rate 11/21/18 89 16:11 11/21/18 98.0 18 117/66 100 Nasal 2.0 16:10 (83) Cannula Intake and Output 11/20/18 11/20/18 11/21/18 1515:00 23:00 07:00 IntakeIntake Total 50 ml 750 ml BalanceBalance 50 ml 750 ml Constitutional: alert, oriented Neck: supple, non-tender Gastrointestinal: soft, nl liver, spleen, non-tender Extremities: pitting pedal edema Results Result Diagram: 11/20/18 0535 11/21/18 0526 Results 24hrs Laboratory Tests Test 11/21/18 05:26 Sodium Level 135 Potassium Level 4.3 Chloride Level 98 Carbon Dioxide Level 29 Anion Gap 8 Blood Urea Nitrogen 35 H Creatinine 1.20 H Est Glomerular Filtrat Rate mL/min Glucose Level 145 # Calcium Level 8.2 L Phosphorus Level 3.7 Magnesium Level 1.8 Medications Medication Current Medications Ciprofloxacin/ Dextrose 200 ml @ 200 mls/hr Q24H IVPB Last administered on 11/08/18 02:51; Admin Dose 200 MLS/HR; Start 11/08/18 at 03:00; Status Hold Metronidazole 100 ml @ 100 mls/hr Q8 IVPB Last administered on 11/07/18 22:15; Admin Dose 100 MLS/HR; Start 11/07/18 at 14:00; Status Hold Acetaminophen (Tylenol Tab) 650 mg Q6H PRN PO MILD PAIN(1-3)OR ELEVATED TEMP Last administered on 11/12/18 00:29; Admin Dose 650 MG; Start 11/07/18 at 10:00 Loperamide HCl (Imodium Cap) 2 mg QID PRN PO DIARRHEA Last administered on 11/09/18 02:45; Admin Dose 2 MG; Start 11/07/18 at 10:30 Amiodarone HCl (Cordarone) 100 mg DAILY PO Last administered on 11/21/18 08:31; Admin Dose 100 MG; Start 11/08/18 at 09:00 Apixaban (Eliquis) 2.5 mg BID PO Last administered on 11/21/18 08:31; Admin Dose 2.5 MG; Start 11/07/18 at 12:00 Cholecalciferol (Vitamin D) 2,000 unit DAILY PO Last administered on 11/21/18 08:32; Admin Dose 2,000 UNIT; Start 11/08/18 at 09:00 Donepezil HCl (Aricept) 10 mg DAILY PO Last administered on 11/21/18 08:31; Admin Dose 10 MG; Start 11/08/18 at 09:00 Escitalopram Oxalate (Lexapro) 20 mg DAILY PO Last administered on 11/21/18 08:31; Admin Dose 20 MG; Start 11/08/18 at 09:00 EZETIMIBE (Zetia) 10 mg DAILY PO Last administered on 11/21/18 08:32; Admin Dose 10 MG; Start 11/08/18 at 09:00 Folic Acid (Folic Acid) 1 mg DAILY PO Last administered on 11/21/18 08:32; Admin Dose 1 MG; Start 11/08/18 at 09:00 Pantoprazole (Protonix Tab) 40 mg DAILY@06 PO Last administered on 11/21/18 06:28; Admin Dose 40 MG; Start 11/08/18 at 06:00 Levothyroxine Sodium (Synthroid) 25 mcg DAILY@0600 PO Last administered on 11/21/18 06:28; Admin Dose 25 MCG; Start 11/08/18 at 06:30 Ondansetron HCl (Zofran Inj) 4 mg Q6H PRN IV NAUSEA AND/OR VOMITING Last administered on 11/12/18 12:55; Admin Dose 4 MG; Start 11/08/18 at 10:30 Lorazepam (Ativan) 0.5 mg Q6H PRN PO ANXIETY Last administered on 11/21/18 00:15; Admin Dose 0.5 MG; Start 11/09/18 at 00:00 Psyllium Hydrophilic Mucilloid (Metamucil) 1 pkt DAILY PO Last administered on 11/21/18 08:32; Admin Dose 1 PKT; Start 11/10/18 at 09:00 Megestrol Acetate (Megace Susp) 400 mg BID PO Last administered on 11/21/18 08:34; Admin Dose 400 MG; Start 11/12/18 at 21:00 Potassium Chloride (Klor-Con 20) 20 meq BID PO Last administered on 11/21/18 08:57; Admin Dose 20 MEQ; Start 11/14/18 at 21:00 Bumetanide (Bumex) 1 mg BID DIURETICS PO Last administered on 11/21/18 17:05; Admin Dose 1 MG; Start 11/16/18 at 18:00 Cefazolin Sodium 50 ml @ 100 mls/hr Q12 IVPB Last administered on 11/21/18 08:32; Admin Dose 100 MLS/HR; Start 11/16/18 at 16:00 Metoprolol Tartrate (Lopressor) 100 mg BID PO Last administered on 11/21/18 08:32; Admin Dose 100 MG; Start 11/20/18 at 21:00 TONY SHETTY MD Nov 21, 2018 17:21
[2018-11-22] VITALS (12 sets, daily range): BP systolic 122–135; BP diastolic 56–75; PULSE 90–105; RESP 17–22
[2018-11-22] MEDS: BUMETANIDE 1 MG TAB PO SCH ×2 (05:41→17:45)
[2018-11-22] MEDS: LEVOTHYROXINE 25 MCG TAB PO SCH (05:41)
[2018-11-22] MEDS: PANTOPRAZOLE (EC) 40 MG TAB PO SCH (05:41)
[2018-11-22] MEDS ORDERED: BUMETANIDE 1 MG INJ IV ONE (08:30)
[2018-11-22] MEDS: MEGESTROL (40 MG/ML) 10ML CUP PO SCH ×2 (09:52→21:59)
[2018-11-22] MEDS: ESCITALOPRAM 10 MG TAB PO SCH (09:53)
[2018-11-22] MEDS: PSYLLIUM 28% PACKET PO SCH (09:53)
[2018-11-22] MEDS: POTASSIUM CHLORIDE (SR) 20 MEQ TAB PO SCH ×2 (09:53→21:59)
[2018-11-22] MEDS: FOLIC ACID 1 MG TAB PO SCH (09:54)
[2018-11-22] MEDS: EZETIMIBE 10 MG TAB PO SCH (09:55)
[2018-11-22] MEDS: CHOLECALCIFEROL 2,000 UNIT CAP PO SCH (09:56)
[2018-11-22] MEDS: APIXABAN 5 MG TABLET PO SCH ×2 (09:56→22:00)
[2018-11-22] MEDS: AMIODARONE 200 MG TAB PO SCH (09:57)
[2018-11-22] MEDS: DONEPEZIL 10 MG TAB PO SCH (09:57)
[2018-11-22] MEDS: CEFAZOLIN 1 GM/50 ML (PMX) 50 ML IVPB SCH (09:57)
[2018-11-22] MEDS: METOPROLOL 100 MG TAB PO SCH ×2 (09:58→21:59)
--- NOTE | 2018-11-22 10:45 | PN ---
DATE: 11/22/2018 SUBJECTIVE: The patient is noted to be more tachypneic this morning. No other events noted. No hem optysis, hematemesis or hematochezia. OBJECTIVE: VITAL SIGNS: Blood pressure is 122/66, respirations 22, pulse 105, temperature 98.0. HEENT: Head is normocephalic. NECK: Supple. HEART: Regular rate. LUNGS: Show diminished breath sounds at the base. ABDOMEN: Soft, nontender to palpation. No rebound or guarding. EXTREMITIES: Negative for clubbing, cyanosis. Positive edema. DERMATOLOGIC: No rashes. MUSCULOSKELETAL: No joint effusion. NEUROLOGIC: No change in exam. MEDICATIONS: Reviewed. LABORATORY DATA: Reviewed. IMAGING STUDIES: Reviewed. ASSESSMENT AND PLAN: 1. Nonoliguric acute kidney injury on top of chronic kidney disease stage III. Etiology of acute ki dney injury is secondary to hemodynamics. Renal function appears to be stabilized. Continue to leah tor. 2. Acute systolic, diastolic heart failure. The patient appears overloaded this morning as the gwendolyn ent is tachypneic. We will give the patient additional dose of Bumex 1 mg IV and monitor closely. 3. Hypokalemia, improved. Continue potassium chloride. 4. Hypernatremia, resolved. 5. Mineral bone disorder, monitor calcium and phosphorus levels. 6. Atrial fibrillation. Continue medical management. Follow up with cardiology. 7. Possible colitis. The patient is completing antibiotic course. 8. Rheumatoid arthritis. Continue to monitor. Follow up with rheumatology for recommendations. Dictated By: BEENA MEDINA DO NR/NTS Conf#: [id number] DID#: [id number] CC: ONOFRE GREGORIO DO; REJI KAUFFMAN MD;*EndCC*
--- NOTE | 2018-11-22 13:43 | CONS ---
Consult Date/Type/Reason Admit Date/Time Nov 07, 2018 at 12:41 Initial Consult Date 11/12/18 Requesting Provider: REJI KAUFFMAN MD Date/Time of Note DATE: 11/22/18 TIME: 13:39 Subjective Patien sleeping at present. Daughter reports that overall feels better. Some ache diffusely. Objective Vitals Vital Signs Date Temp Pulse Resp B/P (MAP) Pulse Ox O2 O2 Flow FiO2 Time Delivery Rate 11/22/18 98 12:13 11/22/18 98.0 22 135/70 96 Room Air 11:51 (91) 11/22/18 2.0 08:21 Intake and Output 11/21/18 11/21/18 11/22/18 1515:00 23:00 07:00 IntakeIntake Total 800 ml OutputOutput Total 900 ml BalanceBalance -100 ml Exam GENERAL: NAD Sleeping at present HEENT: Without acute oral or ocular lesions noted. NECK: Without obvious lymphadenopathy. Supple. HEART: Irregularly irregular. LUNGS: Few crackles in the bases at the present. ABDOMEN: Soft without masses or tenderness. EXTREMITIES: With trace to 1+ edema at the legs. No cyanosis. NEUROLOGIC: Grossly intact. MUSCULOSKELETAL: No definite synovitis at present Results/Medications Result Diagram: 11/20/18 0535 11/21/18 0526 Home Meds Reported Medications Icosapent Ethyl (VASCEPA) 1 Gm Capsule, 1 GM PO QID, CAP 11/07/18 Linaclotide (LINZESS) 145 Mcg Capsule, 145 MCG PO DAILY, #30 CAP 11/07/18 Furosemide* (Furosemide*) 20 Mg Tablet, 20 MG PO DAILY, #60 TAB 11/07/18 Ferrous Sulfate* (Ferrous Sulfate*) 325 Mg Tabec, 325 MG PO TID, TAB 11/07/18 Diclofenac Sodium* (Diclofenac Sodium*) 75 Mg Tablet.dr, 75 MG PO BID, #60 TAB 11/07/18 Cholecalciferol (Vitamin D3) (VITAMIN D-3) 2,000 Unit Capsule, 2000 UNIT PO, CAP 11/07/18 Esomeprazole Magnesium (Esomeprazole Magnesium) 20 Mg Capsule.dr, 20 MG PO BEFORE BREAKFAST, #30 CAP 11/07/18 Escitalopram Oxalate* (Escitalopram Oxalate*) 20 Mg Tablet, 20 MG PO DAILY, #30 TAB 11/07/18 Losartan Potassium* (Losartan Potassium*) 100 Mg Tablet, 100 MG PO DAILY, TAB 11/07/18 Calcium Carbonate* (Calcium Carbonate*) 600 MG Ca Tab, 600 MG PO, TAB 11/07/18 Folic Acid* (Folic Acid*) 1 Mg Tablet, 1 MG PO DAILY, TAB 11/07/18 Apixaban* (Eliquis*) 2.5 Mg Tablet, 2.5 MG PO BID, TAB 11/07/18 Metoprolol Tartrate* (Lopressor*) 100 Mg Tablet, 200 MG PO BID, #120 TAB 11/07/18 Ezetimibe* (Zetia*) 10 Mg Tablet, 10 MG PO DAILY, TAB 11/07/18 Donepezil* (Donepezil*) 10 Mg Tablet, 10 MG PO DAILY, #30 TAB 11/07/18 Amiodarone Hcl* (Amiodarone Hcl*) 200 Mg Tablet, 100 MG PO BID for [id number], #60 TAB 11/07/18 Amlodipine Besylate* (Norvasc*) 5 Mg Tablet, 5 MG PO DAILY, TAB 11/07/18 Levocetirizine Dihydrochloride (LEVOCETIRIZINE DIHYDROCHLORIDE) 1 Gm Powder, 1 GM MC 05/03/16 Infliximab (Remicade) 100 Mg Soln, 100 MG IV 6 WEEKS 12/14/11 Levothyroxine Sodium (Levothroid) 25 Mcg Tablet, 25 MCG PO DAILY 12/14/11 Simvastatin (Simvastatin) 20 Mg Tablet, 20 MG PO DAILY 12/14/11 Lorazepam* (Ativan*) 0.5 Mg Tablet, 0.5 MG PO DAILY 12/14/11 Omeprazole* (Omeprazole*) 20 Mg Capsule.dr, 20 MG PO AC MEALS AND BEDTIME 12/14/11 Methotrexate Sodium (Methotrexate) 2.5 Mg/Dose-Pack Tab.ds.pk, 2.5 MG PO DAILY 12/14/11 Aspirin Ec (Aspir 81) 81 Mg Tablet.dr, 81 MG PO DAILY 12/14/11 Medications Current Medications Acetaminophen (Tylenol Tab) 650 mg Q6H PRN PO MILD PAIN(1-3)OR ELEVATED TEMP Last administered on 11/12/18at 00:29; Admin Dose 650 MG; Start 11/07/18 at 10:00 Loperamide HCl (Imodium Cap) 2 mg QID PRN PO DIARRHEA Last administered on 11/09/18 02:45; Admin Dose 2 MG; Start 11/07/18 at 10:30 Amiodarone HCl (Cordarone) 100 mg DAILY PO Last administered on 11/22/18 09:57; Admin Dose 100 MG; Start 11/08/18 at 09:00 Apixaban (Eliquis) 2.5 mg BID PO Last administered on 11/22/18 09:56; Admin Dose 2.5 MG; Start 11/07/18 at 12:00 Cholecalciferol (Vitamin D) 2,000 unit DAILY PO Last administered on 11/22/18 09:56; Admin Dose 2,000 UNIT; Start 11/08/18 at 09:00 Donepezil HCl (Aricept) 10 mg DAILY PO Last administered on 11/22/18 09:57; Admin Dose 10 MG; Start 11/08/18 at 09:00 Escitalopram Oxalate (Lexapro) 20 mg DAILY PO Last administered on 11/22/18 09:53; Admin Dose 20 MG; Start 11/08/18 at 09:00 EZETIMIBE (Zetia) 10 mg DAILY PO Last administered on 11/22/18 09:55; Admin Dose 10 MG; Start 11/08/18 at 09:00 Folic Acid (Folic Acid) 1 mg DAILY PO Last administered on 11/22/18 09:54; Admin Dose 1 MG; Start 11/08/18 at 09:00 Pantoprazole (Protonix Tab) 40 mg DAILY@06 PO Last administered on 11/22/18 05:41; Admin Dose 40 MG; Start 11/08/18 at 06:00 Levothyroxine Sodium (Synthroid) 25 mcg DAILY@0600 PO Last administered on 11/22/18 05:41; Admin Dose 25 MCG; Start 11/08/18 at 06:30 Ondansetron HCl (Zofran Inj) 4 mg Q6H PRN IV NAUSEA AND/OR VOMITING Last administered on 11/12/18 12:55; Admin Dose 4 MG; Start 11/08/18 at 10:30 Lorazepam (Ativan) 0.5 mg Q6H PRN PO ANXIETY Last administered on 11/21/18 23:27; Admin Dose 0.5 MG; Start 11/09/18 at 00:00 Psyllium Hydrophilic Mucilloid (Metamucil) 1 pkt DAILY PO Last administered on 11/22/18at 09:53; Admin Dose 1 PKT; Start 11/10/18 at 09:00 Megestrol Acetate (Megace Susp) 400 mg BID PO Last administered on 11/22/18at 0 9:52; Admin Dose 400 MG; Start 11/12/18 at 21:00 Potassium Chloride (Klor-Con 20) 20 meq BID PO Last administered on 11/22/18at 09:53; Admin Dose 20 MEQ; Start 11/14/18 at 21:00 Bumetanide (Bumex) 1 mg BID DIURETICS PO Last administered on 11/22/18at 05:41; Admin Dose 1 MG; Start 11/16/18 at 18:00 Metoprolol Tartrate (Lopressor) 100 mg BID PO Last administered on 11/22/18at 09:58; Admin Dose 100 MG; Start 11/20/18 at 21:00 Cephalexin (Keflex) 500 mg TID PO ; Start 11/22/18 at 21:00; Stop 11/25/18 at 13:01 Assessment/Plan Assessment/Plan (Daily) ASSESSMENT: 1. Rheumatoid arthritis, seropositive well controlled on recent medications. 2. Atrial fibrillation. 3. Recent congestive heart failure. 4. Recent renal insufficiency, increased, which has improved. 5. Thrombocytopenia, possibly related to liver status. Possible mild cirrhosis. 6. Hypothyroidism. 7. Obesity. 8. Hyperlipidemia. PLAN: 1. Agree with present management. 2. We will stop the Remicade in view of the recent congestive heart failure. 3. We will stop the methotrexate as there is a question of cirrhosis. 4. In the future we will reevaluate regarding treatment for her rheumatoid arthritis, which at present seems stable.. WILLIAN RODRÍGUEZ MD Nov 22, 2018 13:43
--- NOTE | 2018-11-22 14:10 | CONS ---
Assessment/Plan Assessment/Plan Hospital Course (Demo Recall) #Coagulopathy -pt is noted to have an elevated PT (26sec) and PTT(35 sec). Today patient;s PTT is within normal limits. PT mixing study corrected. This essentially rules out a factor inhibitor. This makes the most likely cause of her coagulopathy her underlying cirrhosis and Vitamin K deficiency -s/p oral Vitamin K 5mg po x 3 days -INR now 1.2 -continue eliquis at this time for afib #Colitis -GI consulted -continue Levaquin and Flagyl #JACKELIN on CKD -pt getting fluids per osito #CHF -pt on bumex #Afib -may continue eliquis as mentioned above #HTN -continue current BP meds #RA -management per rheumatology Thank you for the opportunity to participate in this patients care A total of 40 minutes of face to face time was spent speaking with the patient, of which greater than 50% was spent in counseling and coordination of care and the detailed question and answer session. Consultation Date/Type/Reason Admit Date/Time Nov 07, 2018 at 12:41 Initial Consult Date 11/12/18 Type of Consult hematology Reason for Consultation coagulopathy Requesting Provider: REJI KAUFFMAN MD Date/Time of Note DATE: 11/22/18 TIME: 14:08 24 HR Interval Summary Free Text/Dictation no acute overnight events Exam/Review of Systems Exam Vitals Vital Signs Date Temp Pulse Resp B/P (MAP) Pulse Ox O2 O2 Flow FiO2 Time Delivery Rate 11/22/18 98 12:13 11/22/18 98.0 22 135/70 96 Room Air 11:51 (91) 11/22/18 2.0 08:21 Intake and Output 11/21/18 11/21/18 11/22/18 1515:00 23:00 07:00 IntakeIntake Total 800 ml OutputOutput Total 900 ml BalanceBalance -100 ml Constitutional: alert, oriented Psych: no complaints Head: normocephalic Eyes: nl conjunctiva ENMT: nl external ears & nose Neck: supple Respiratory: clear to auscultation Cardiovascular: regular rate and rhythm Gastrointestinal: soft Musculoskeletal: nl extremities to inspection Results Result Diagram: 11/20/18 0535 11/21/18 0579 Medications Medication Current Medications Acetaminophen (Tylenol Tab) 650 mg Q6H PRN PO MILD PAIN(1-3)OR ELEVATED TEMP Last administered on 11/12/18 00:29; Admin Dose 650 MG; Start 11/07/18 at 10:00 Loperamide HCl (Imodium Cap) 2 mg QID PRN PO DIARRHEA Last administered on 11/09/18 02:45; Admin Dose 2 MG; Start 11/07/18 at 10:30 Amiodarone HCl (Cordarone) 100 mg DAILY PO Last administered on 11/22/18 09:57 ; Admin Dose 100 MG; Start 11/08/18 at 09:00 Apixaban (Eliquis) 2.5 mg BID PO Last administered on 11/22/18 09:56; Admin Dose 2.5 MG; Start 11/07/18 at 12:00 Cholecalciferol (Vitamin D) 2,000 unit DAILY PO Last administered on 11/22/18 09:56; Admin Dose 2,000 UNIT; Start 11/08/18 at 09:00 Donepezil HCl (Aricept) 10 mg DAILY PO Last administered on 11/22/18 09:57; Admin Dose 10 MG; Start 11/08/18 at 09:00 Escitalopram Oxalate (Lexapro) 20 mg DAILY PO Last administered on 11/22/18 09:53; Admin Dose 20 MG; Start 11/08/18 at 09:00 EZETIMIBE (Zetia) 10 mg DAILY PO Last administered on 11/22/18 09:55; Admin Dose 10 MG; Start 11/08/18 at 09:00 Folic Acid (Folic Acid) 1 mg DAILY PO Last administered on 11/22/18 09:54; Admin Dose 1 MG; Start 11/08/18 at 09:00 Pantoprazole (Protonix Tab) 40 mg DAILY@06 PO Last administered on 11/22/18 05:41; Admin Dose 40 MG; Start 11/08/18 at 06:00 Levothyroxine Sodium (Synthroid) 25 mcg DAILY@0600 PO Last administered on 11/22/18 05:41; Admin Dose 25 MCG; Start 11/08/18 at 06:30 Ondansetron HCl (Zofran Inj) 4 mg Q6H PRN IV NAUSEA AND/OR VOMITING Last administered on 11/12/18 12:55; Admin Dose 4 MG; Start 11/08/18 at 10:30 Lorazepam (Ativan) 0.5 mg Q6H PRN PO ANXIETY Last administered on 11/21/18 23:27; Admin Dose 0.5 MG; Start 11/09/18 at 00:00 Psyllium Hydrophilic Mucilloid (Metamucil) 1 pkt DAILY PO Last administered on 11/22/18 09:53; Admin Dose 1 PKT; Start 11/10/18 at 09:00 Megestrol Acetate (Megace Susp) 400 mg BID PO Last administered on 11/22/18 09:52; Admin Dose 400 MG; Start 11/12/18 at 21:00 Potassium Chloride (Klor-Con 20) 20 meq BID PO Last administered on 11/22/18 09:53; Admin Dose 20 MEQ; Start 11/14/18 at 21:00 Bumetanide (Bumex) 1 mg BID DIURETICS PO Last administered on 11/22/18at 05:41; Admin Dose 1 MG; Start 11/16/18 at 18:00 Metoprolol Tartrate (Lopressor) 100 mg BID PO Last administered on 11/22/18 09:58; Admin Dose 100 MG; Start 11/20/18 at 21:00 Cephalexin (Keflex) 500 mg TID PO ; Start 11/22/18 at 21:00; Stop 11/25/18 at 13:01 CRISTIAN LEBLANC M.D. Nov 22, 2018 14:09
--- NOTE | 2018-11-22 16:35 | PN ---
Date/Time of Note Date/Time of Note DATE: 11/22/18 TIME: 16:35 Assessment/Plan VTE Prophylaxis Risk score (from Ns)>0 risk: 4 SCD applied (from Ns): Yes Pharmacological prophylaxis: apixaban Lines/Catheters IV [facility]from [facility] Mid Line Urinary Cath still in place: No Assessment/Plan Hospital Course Patient's complaints of bilateral lower extremities edema was giving 1 dose on IV Bumex, patient is complains of generalized weakness. Continue physical therapy. BMP tomorrow. Assessment/Plan -Left foot cellulitis, improving. s/p Ancef, on Keflex. -Acute decompensated systolic and diastolic congestive heart failure, continue diuretics per nephrology. -Nonoliguric acute kidney injury on top of chronic kidney disease stage III. Continue Bumex. -Coagulopathy most likely to liver cirrhosis and vitamin K deficiency, status post vitamin K, improved. Dr. Ramsay is following in hematology consultation. -Atrial fibrillation with initially rapid ventricular rates, improved, continue Eliquis and metoprolol. Dr Mayers is following in cardiology consultation. -Nausea vomiting and diarrhea for 2 days, resolved. Dr. Merchant is following in gastroenterology consultation. -Colitis per CT scan. S/p Levaquin and Flagyl. 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 Patient unable to undergo MRI due to pacemaker. Dr. Duque is following and podiatry consultation. -Hypertension, continue metoprolol Norvasc and Cozaar -PPM -Hypothyroidism, continue levothyroxine. -Rheumatoid arthritis, Dr Grant is following in rheumatology consultation. Further recommendations based on clinical course. Plan of care discussed with Dr. Rayo. Result Diagram: 11/20/18 0535 11/21/18 0526 Exam/Review of Systems Exam Vitals Vital Signs Date Temp Pulse Resp B/P (MAP) Pulse Ox O2 O2 Flow FiO2 Time Delivery Rate 11/22/18 92 16:28 11/22/18 98.0 22 135/70 96 Room Air 11:51 (91) 11/22/18 2.0 09:45 Intake and Output 11/21/18 11/21/18 11/22/18 1515:00 23:00 07:00 IntakeIntake Total 800 ml OutputOutput Total 900 ml BalanceBalance -100 ml Exam Constitutional: alert, oriented Respiratory: clear to auscultation Cardiovascular: irregular rhythm, other (L chest PPM) Gastrointestinal: soft, non-tender Musculoskeletal: nl extremities to inspection Extremities: normal pulses Neurological: nl mental status Medications Medication Current Medications Acetaminophen (Tylenol Tab) 650 mg Q6H PRN PO MILD PAIN(1-3)OR ELEVATED TEMP Last administered on 11/12/18 00:29; Admin Dose 650 MG; Start 11/07/18 at 10:00 Loperamide HCl (Imodium Cap) 2 mg QID PRN PO DIARRHEA Last administered on 11/09/18 02:45; Admin Dose 2 MG; Start 11/07/18 at 10:30 Amiodarone HCl (Cordarone) 100 mg DAILY PO Last administered on 11/22/18 09:57; Admin Dose 100 MG; Start 11/08/18 at 09:00 Apixaban (Eliquis) 2.5 mg BID PO Last administered on 11/22/18 09:56; Admin Dose 2.5 MG; Start 11/07/18 at 12:00 Cholecalciferol (Vitamin D) 2,000 unit DAILY PO Last administered on 11/22/18 09:56; Admin Dose 2,000 UNIT; Start 11/08/18 at 09:00 Donepezil HCl (Aricept) 10 mg DAILY PO Last administered on 11/22/18 09:57; Admin Dose 10 MG; Start 11/08/18 at 09:00 Escitalopram Oxalate (Lexapro) 20 mg DAILY PO Last administered on 11/22/18 09:53; Admin Dose 20 MG; Start 11/08/18 at 09:00 EZETIMIBE (Zetia) 10 mg DAILY PO Last administered on 11/22/18 09:55; Admin Dose 10 MG; Start 11/08/18 at 09:00 Folic Acid (Folic Acid) 1 mg DAILY PO Last administered on 11/22/18 09:54; Admin Dose 1 MG; Start 11/08/18 at 09:00 Pantoprazole (Protonix Tab) 40 mg DAILY@06 PO Last administered on 11/22/18 05:41; Admin Dose 40 MG; Start 11/08/18 at 06:00 Levothyroxine Sodium (Synthroid) 25 mcg DAILY@0600 PO Last administered on 11/22/18 05:41; Admin Dose 25 MCG; Start 11/08/18 at 06:30 Ondansetron HCl (Zofran Inj) 4 mg Q6H PRN IV NAUSEA AND/OR VOMITING Last admini stered on 11/12/18 12:55; Admin Dose 4 MG; Start 11/08/18 at 10:30 Lorazepam (Ativan) 0.5 mg Q6H PRN PO ANXIETY Last administered on 11/21/18 23:27; Admin Dose 0.5 MG; Start 11/09/18 at 00:00 Psyllium Hydrophilic Mucilloid (Metamucil) 1 pkt DAILY PO Last administered on 11/22/18 09:53; Admin Dose 1 PKT; Start 11/10/18 at 09:00 Megestrol Acetate (Megace Susp) 400 mg BID PO Last administered on 11/22/18 09:52; Admin Dose 400 MG; Start 11/12/18 at 21:00 Potassium Chloride (Klor-Con 20) 20 meq BID PO Last administered on 11/22/18 09:53; Admin Dose 20 MEQ; Start 11/14/18 at 21:00 Bumetanide (Bumex) 1 mg BID DIURETICS PO Last administered on 11/22/18 05:41; Admin Dose 1 MG; Start 11/16/18 at 18:00 Metoprolol Tartrate (Lopressor) 100 mg BID PO Last administered on 11/22/18 09:58; Admin Dose 100 MG; Start 11/20/18 at 21:00 Cephalexin (Keflex) 500 mg TID PO ; Start 11/22/18 at 21:00; Stop 11/25/18 at 13:01 OSCAR GAYTAN Nov 22, 2018 16:35
--- NOTE | 2018-11-22 17:05 | CONS ---
Assessment/Plan Cardiology NYHA: III Heart Failure Type: Acute on Chronic Heart Failure Type: Both Assessment/Plan Hospital Course (Demo Recall) Atrial fibrillation with initially rapid ventricular rates, improved Nausea, vomiting-resolved Acute decompensated systolic and diastolic congestive heart failure Acute kidney injury-improving Mitral and tricuspid valve regurgitation Possible colitis Hypertension Dyslipidemia History of pacemaker Heart rate trend overall improving, continue beta-carine and titrate as needed Patient appears near euvolemic, continue diuretics. Being titrated as per nephrology Continue anticoagulation if no contraindication Consultation Date/Type/Reason Admit Date/Time Nov 07, 2018 at 12:41 Initial Consult Date Type of Consult Cardiology Requesting Provider: REJI KAUFFMAN MD Date/Time of Note DATE: 11/22/18 TIME: 17:04 24 HR Interval Summary Free Text/Dictation No shortness of breath, palpitations, chest pain. Daughter states patient is fatigued Exam/Review of Systems Vital Signs Vitals Vital Signs Date Temp Pulse Resp B/P (MAP) Pulse Ox O2 O2 Flow FiO2 Time Delivery Rate 11/22/18 92 16:28 11/22/18 98.0 22 135/70 96 Room Air 11:51 (91) 11/22/18 2.0 09:45 Intake and Output 11/21/18 11/21/18 11/22/18 1515:00 23:00 07:00 IntakeIntake Total 800 ml OutputOutput Total 900 ml BalanceBalance -100 ml Exam Constitutional: alert, oriented (No apparent distress) Head: normocephalic Respiratory: other (Coarse breath sounds bilaterally, no wheezing) Cardiovascular: irregular rhythm (S1-S2 heard) Gastrointestinal: soft, non-tender, bowel sounds Extremities: edema Labs Result Diagram: 11/20/18 0535 11/21/18 0526 Medications Medications Current Medications Acetaminophen (Tylenol Tab) 650 mg Q6H PRN PO MILD PAIN(1-3)OR ELEVATED TEMP Last administered on 11/12/18at 00:29; Admin Dose 650 MG; Start 11/07/18 at 10:00 Loperamide HCl (Imodium Cap) 2 mg QID PRN PO DIARRHEA Last administered on 11/09/18 02:45; Admin Dose 2 MG; Start 11/07/18 at 10:30 Amiodarone HCl (Cordarone) 100 mg DAILY PO Last administered on 11/22/18at 09:57; Admin Dose 100 MG; Start 11/08/18 at 09:00 Apixaban (Eliquis) 2.5 mg BID PO Last administered on 11/22/18 09:56; Admin Dose 2.5 MG; Start 11/07/18 at 12:00 Cholecalciferol (Vitamin D) 2,000 unit DAILY PO Last administered on 11/22/18 09:56; Admin Dose 2,000 UNIT; Start 11/08/18 at 09:00 Donepezil HCl (Aricept) 10 mg DAILY PO Last administered on 11/22/18 09:57; Admin Dose 10 MG; Start 11/08/18 at 09:00 Escitalopram Oxalate (Lexapro) 20 mg DAILY PO Last administered on 11/22/18 09:53; Admin Dose 20 MG; Start 11/08/18 at 09:00 EZETIMIBE (Zetia) 10 mg DAILY PO Last administered on 11/22/18 09:55; Admin Dose 10 MG; Start 11/08/18 at 09:00 Folic Acid (Folic Acid) 1 mg DAILY PO Last administered on 11/22/18 09:54; Admin Dose 1 MG; Start 11/08/18 at 09:00 Pantoprazole (Protonix Tab) 40 mg DAILY@06 PO Last administered on 11/22/18 05:41; Admin Dose 40 MG; Start 11/08/18 at 06:00 Levothyroxine Sodium (Synthroid) 25 mcg DAILY@0600 PO Last administered on 11/22/18 05:41; Admin Dose 25 MCG; Start 11/08/18 at 06:30 Ondansetron HCl (Zofran Inj) 4 mg Q6H PRN IV NAUSEA AND/OR VOMITING Last administered on 11/12/18 12:55; Admin Dose 4 MG; Start 11/08/18 at 10:30 Lorazepam (Ativan) 0.5 mg Q6H PRN PO ANXIETY Last administered on 11/21/18 23:27; Admin Dose 0.5 MG; Start 11/09/18 at 00:00 Psyllium Hydrophilic Mucilloid (Metamucil) 1 pkt DAILY PO Last administered on 11/22/18 09:53; Admin Dose 1 PKT; Start 11/10/18 at 09:00 Megestrol Acetate (Megace Susp) 400 mg BID PO Last administered on 11/22/18at 09 :52; Admin Dose 400 MG; Start 11/12/18 at 21:00 Potassium Chloride (Klor-Con 20) 20 meq BID PO Last administered on 11/22/18at 09:53; Admin Dose 20 MEQ; Start 11/14/18 at 21:00 Bumetanide (Bumex) 1 mg BID DIURETICS PO Last administered on 11/22/18at 05:41; Admin Dose 1 MG; Start 11/16/18 at 18:00 Metoprolol Tartrate (Lopressor) 100 mg BID PO Last administered on 11/22/18at 09:58; Admin Dose 100 MG; Start 11/20/18 at 21:00 Cephalexin (Keflex) 500 mg TID PO ; Start 11/22/18 at 21:00; Stop 11/25/18 at 13:01 Perico Mayers DO Nov 22, 2018 17:05
--- NOTE | 2018-11-22 18:04 | CONS ---
Assessment/Plan Assessment/Plan Assessment/Plan (Daily) Assessment/Plan Assessment/Plan (Daily) 1. Nausea, vomiting and diarrhea which have subsided -resolved. 2. Atrial fibrillation for which she is on Eliquis. 3. Status post pacemaker insertion. 4. Dyslipidemia. 5. Hypothyroidism. 6. Hypertension. 7. Fatigue -likely due to depression -lexapro 8. Pedal edema pitting all the way up to knee, has reduced her drastically res ponded well to diuretics. Almost disappeared 9. Coagulopathy may be due to cirrhosis of liver -improved -heme following 10. Abnormal LFT -patient CAT scan shows nodular liver which may be due to cirrhosis and also steatosis is playing a role -Hep panel unremarkable -LFTs wnl now 11. Thrombocytopenia -followed by Dr Ramsay 12. Liver cirrhosis noted in CT scan -HEARD? -hep panel unremarkable. -hepatic autoimmune panel unremarkable Plan Continue present care discussed with the daughter [id number] time will follow up in the office Consultation Date/Type/Reason Admit Date/Time Nov 07, 2018 at 12:41 Initial Consult Date Requesting Provider: REJI KAUFFMAN MD Date/Time of Note DATE: 11/22/18 TIME: 18:03 24 HR Interval Summary Free Text/Dictation No vomiting no abdominal pain No nausea Mucoid discharge from the rectum Exam/Review of Systems Exam Vitals Vital Signs Date Temp Pulse Resp B/P (MAP) Pulse Ox O2 O2 Flow FiO2 Time Delivery Rate 11/22/18 92 16:28 11/22/18 98.0 22 135/70 96 Room Air 11:51 (91) 11/22/18 2.0 09:45 Intake and Output 11/21/18 11/21/18 11/22/18 1515:00 23:00 07:00 IntakeIntake Total 800 ml OutputOutput Total 900 ml BalanceBalance -100 ml Constitutional: alert, oriented, well developed Psych: no complaints, nl mood/affect Head: normocephalic, atraumatic Eyes: nl conjunctiva, EOMI, nl lids, nl sclera, PERRL ENMT: nl external ears & nose, nl lips & teeth, nl nasal mucosa & septum Neck: supple, non-tender Respiratory: clear to auscultation, normal air movement Cardiovascular: regular rate and rhythm, nl pulses Gastrointestinal: soft, nl liver, spleen, non-tender Musculoskeletal: nl extremities to inspection, nl gait and stance Extremities: normal pulses Neurological: SCIENCE ANALYST II-XII intact, nl mental status, nl speech, nl strength Skin: nl turgor; No rash or lesions Lymph: nl lymph nodes Results Result Diagram: 11/20/18 0535 11/21/18 05 Medications Medication Current Medications Acetaminophen (Tylenol Tab) 650 mg Q6H PRN PO MILD PAIN(1-3)OR ELEVATED TEMP Last administered on 11/12/18 00:29; Admin Dose 650 MG; Start 11/07/18 at 10:00 Loperamide HCl (Imodium Cap) 2 mg QID PRN PO DIARRHEA Last administered on 02:45; Admin Dose 2 MG; Start 11/07/18 at 10:30 Amiodarone HCl (Cordarone) 100 mg DAILY PO Last administered on 11/22/18 09:57; Admin Dose 100 MG; Start 11/08/18 at 09:00 Apixaban (Eliquis) 2.5 mg BID PO Last administered on 11/22/18 09:56; Admin Dose 2.5 MG; Start 11/07/18 at 12:00 Cholecalciferol (Vitamin D) 2,000 unit DAILY PO Last administered on 11/22/18 09:56; Admin Dose 2,000 UNIT; Start 11/08/18 at 09:00 Donepezil HCl (Aricept) 10 mg DAILY PO Last administered on 11/22/18 09:57; Admin Dose 10 MG; Start 11/08/18 at 09:00 Escitalopram Oxalate (Lexapro) 20 mg DAILY PO Last administered on 11/22/18 09:53; Admin Dose 20 MG; Start 11/08/18 at 09:00 EZETIMIBE (Zetia) 10 mg DAILY PO Last administered on 11/22/18 09:55; Admin Dose 10 MG; Start 11/08/18 at 09:00 Folic Acid (Folic Acid) 1 mg DAILY PO Last administered on 11/22/18 09:54; Admin Dose 1 MG; Start 11/08/18 at 09:00 Pantoprazole (Protonix Tab) 40 mg DAILY@06 PO Last administered on 11/22/18 05:41; Admin Dose 40 MG; Start 11/08/18 at 06:00 Levothyroxine Sodium (Synthroid) 25 mcg DAILY@0600 PO Last administered on 11/22/18 05:41; Admin Dose 25 MCG; Start 11/08/18 at 06:30 Ondansetron HCl (Zofran Inj) 4 mg Q6H PRN IV NAUSEA AND/OR VOMITING Last administered on 11/12/18 12:55; Admin Dose 4 MG; Start 11/08/18 at 10:30 Lorazepam (Ativan) 0.5 mg Q6H PRN PO ANXIETY Last administered on 11/21/18 23:27; Admin Dose 0.5 MG; Start 11/09/18 at 00:00 Psyllium Hydrophilic Mucilloid (Metamucil) 1 pkt DAILY PO Last administered on 11/22/18 09:53; Admin Dose 1 PKT; Start 11/10/18 at 09:00 Megestrol Acetate (Megace Susp) 400 mg BID PO Last administered on 11/22/18 09:52; Admin Dose 400 MG; Start 11/12/18 at 21:00 Potassium Chloride (Klor-Con 20) 20 meq BID PO Last administered on 11/22/18 09:53; Admin Dose 20 MEQ; Start 11/14/18 at 21:00 Bumetanide (Bumex) 1 mg BID DIURETICS PO Last administered on 11/22/18 17:45; Admin Dose 1 MG; Start 11/16/18 at 18:00 Metoprolol Tartrate (Lopressor) 100 mg BID PO Last administered on 11/22/18 09:58; Admin Dose 100 MG; Start 11/20/18 at 21:00 Cephalexin (Keflex) 500 mg TID PO ; Start 11/22/18 at 21:00; Stop 11/25/18 at 13:01 TONY SHETTY MD Nov 22, 2018 18:04
[2018-11-22] MEDS: CEPHALEXIN 500 MG CAP PO SCH (22:00)
[2018-11-22] MEDS: LORAZEPAM 0.5 MG TAB PO PRN (22:15)
[2018-11-23] VITALS (12 sets, daily range): BP systolic 121–133; BP diastolic 59–80; PULSE 81–107; RESP 17–20
[2018-11-23] MEDS: LEVOTHYROXINE 25 MCG TAB PO SCH (06:11)
[2018-11-23] MEDS: BUMETANIDE 1 MG TAB PO SCH ×2 (06:11→17:52)
[2018-11-23] MEDS: PANTOPRAZOLE (EC) 40 MG TAB PO SCH (06:11)
[2018-11-23] MEDS: EZETIMIBE 10 MG TAB PO SCH (09:42)
[2018-11-23] MEDS: FOLIC ACID 1 MG TAB PO SCH (09:43)
[2018-11-23] MEDS: CHOLECALCIFEROL 2,000 UNIT CAP PO SCH (09:43)
[2018-11-23] MEDS: CEPHALEXIN 500 MG CAP PO SCH ×3 (09:43→20:28)
[2018-11-23] MEDS: ESCITALOPRAM 10 MG TAB PO SCH (09:43)
[2018-11-23] MEDS: POTASSIUM CHLORIDE (SR) 20 MEQ TAB PO SCH ×2 (09:43→20:28)
[2018-11-23] MEDS: DONEPEZIL 10 MG TAB PO SCH (09:43)
[2018-11-23] MEDS: APIXABAN 5 MG TABLET PO SCH ×2 (09:43→20:28)
[2018-11-23] MEDS: AMIODARONE 200 MG TAB PO SCH (09:44)
[2018-11-23] MEDS: MEGESTROL (40 MG/ML) 10ML CUP PO SCH ×2 (09:44→20:28)
[2018-11-23] MEDS: METOPROLOL 100 MG TAB PO SCH ×2 (09:44→20:28)
[2018-11-23] MEDS: PSYLLIUM 28% PACKET PO SCH (09:44)
--- NOTE | 2018-11-23 09:59 | PN ---
DATE: 11/23/2018 SUBJECTIVE: The patient is stable. No events overnight. The patient's shortness of breath has impr napoleon. OBJECTIVE: VITAL SIGNS: Blood pressure is 124/80, pulse 101, temperature 98.8. HEENT: Head is normocephalic. NECK: Supple. HEART: Regular rate. LUNGS: Show diminished breath sounds at base. ABDOMEN: Soft, nontender to palpation without rebound or guarding. EXTREMITIES: Negative for clubbing, cyanosis, no edema. DERMATOLOGIC: No rashes. MUSCULOSKELETAL: No joint effusion. NEUROLOGIC: No change in exam. MEDICATIONS: Have been reviewed. LABORATORY DATA: Has been reviewed. IMAGING STUDIES: Have been reviewed. ASSESSMENT AND PLAN: 1. Nonoliguric acute kidney injury on top of chronic kidney disease stage III. Etiology of acute ki dney injury is secondary to hemodynamics. Renal function is stabilized. Continue current treatment plan. 2. Acute systolic, diastolic heart failure. The patient appears compensated today. We will continu e current Bumex 1 mg p.o. b.i.d. 3. Hypokalemia. Continue to monitor and replete. 4. Hypernatremia, improved. 5. Mineral bone disorder, monitor calcium and phosphorus levels. 6. Afib. Continue medical management. 7. Possible colitis. Continue current antibiotic regimen. 8. Rheumatoid arthritis. Continue to monitor. Follow up with rheumatology. Dictated By: BEENA ARAUJO/CHRISTIE Conf#: [id number] DID#: [id number] CC: REJI KAUFFMAN MD;*End*
--- NOTE | 2018-11-23 13:41 | CONS ---
Assessment/Plan Assessment/Plan Hospital Course (Demo Recall) #Coagulopathy -pt is noted to have an elevated PT (26sec) and PTT(35 sec). Today patient;s PTT is within normal limits. PT mixing study corrected. This essentially rules out a factor inhibitor. This makes the most likely cause of her coagulopathy her underlying cirrhosis and Vitamin K deficiency -s/p oral Vitamin K 5mg po x 3 days -INR now 1.2 -continue eliquis at this time for afib #Colitis -GI consulted -continue Levaquin and Flagyl #JACKELIN on CKD -pt getting fluids per osito #CHF -pt on bumex #Afib -may continue eliquis as mentioned above #HTN -continue current BP meds #RA -management per rheumatology Thank you for the opportunity to participate in this patients care A total of 40 minutes of face to face time was spent speaking with the patient, of which greater than 50% was spent in counseling and coordination of care and the detailed question and answer session. Consultation Date/Type/Reason Admit Date/Time Nov 07, 2018 at 12:41 Initial Consult Date 11/12/18 Type of Consult hematology Reason for Consultation coagulopathy Requesting Provider: REJI KAUFFMAN MD Date/Time of Note DATE: 11/23/18 TIME: 13:39 24 HR Interval Summary Free Text/Dictation no acute overnight events. continues on antibiotics for her colitis Exam/Review of Systems Exam Vitals Vital Signs Date Temp Pulse Resp B/P (MAP) Pulse Ox O2 O2 Flow FiO2 Time Delivery Rate 11/23/18 89 12:13 11/23/18 98.0 20 133/70 97 Room Air 11:01 (91) 11/23/18 2.0 07:40 Intake and Output 11/22/18 11/22/18 11/23/18 1515:00 23:00 07:00 IntakeIntake Total 50 ml 710 ml 120 ml BalanceBalance 50 ml 710 ml 120 ml Constitutional: alert, oriented, distress, frail Psych: anxiety, depression Head: normocephalic Eyes: nl conjunctiva, nl lids ENMT: nl external ears & nose Neck: supple Respiratory: clear to auscultation Cardiovascular: regular rate and rhythm Gastrointestinal: soft Musculoskeletal: nl extremities to inspection Results Result Diagram: 11/23/18 0545 11/23/18 0545 Results 24hrs Laboratory Tests Test 11/23/18 05:45 White Blood Count 6.9 Red Blood Count 3.79 L Hemoglobin 12.4 Hematocrit 37.7 Mean Corpuscular Volume 99.5 Mean Corpuscular Hemoglobin 32.7 Mean Corpuscular Hemoglobin Concent 32.9 Red Cell Distribution Width 19.6 H Platelet Count 150 # Mean Platelet Volume 10.7 H Immature Granulocytes % 0.300 Neutrophils % 50.8 Lymphocytes % 38.3 Monocytes % 9.9 Eosinophils % 0.3 Basophils % 0.4 Nucleated Red Blood Cells % 0.0 Immature Granulocytes # 0.020 Neutrophils # 3.5 Lymphocytes # 2.7 Monocytes # 0.7 Eosinophils # 0.0 Basophils # 0.0 Nucleated Red Blood Cells # 0.0 Sodium Level 138 Potassium Level 4.5 Chloride Level 100 Carbon Dioxide Level 27 Anion Gap 11 Blood Urea Nitrogen 36 H Creatinine 1.35 H Est Glomerular Filtrat Rate mL/min Glucose Level 90 Calcium Level 8.7 Phosphorus Level 4.5 Magnesium Level 1.8 Medications Medication Current Medications Acetaminophen (Tylenol Tab) 650 mg Q6H PRN PO MILD PAIN(1-3)OR ELEVATED TEMP Last administered on 11/12/18 00:29; Admin Dose 650 MG; Start 11/07/18 at 10:00 Loperamide HCl (Imodium Cap) 2 mg QID PRN PO DIARRHEA Last administered on 11/09/18 02:45; Admin Dose 2 MG; Start 11/07/18 at 10:30 Amiodarone HCl (Cordarone) 100 mg DAILY PO Last administered on 11/23/18 09:44; Admin Dose 100 MG; Start 11/08/18 at 09:00 Apixaban (Eliquis) 2.5 mg BID PO Last administered on 11/23/18 09:43; Admin Dose 2.5 MG; Start 11/07/18 at 12:00 Cholecalciferol (Vitamin D) 2,000 unit DAILY PO Last administered on 11/23/18 09:43; Admin Dose 2,000 UNIT; Start 11/08/18 at 09:00 Donepezil HCl (Aricept) 10 mg DAILY PO Last administered on 11/23/18 09:43; Admin Dose 10 MG; Start 11/08/18 at 09:00 Escitalopram Oxalate (Lexapro) 20 mg DAILY PO Last administered on 11/23/18 09:43; Admin Dose 20 MG; Start 11/08/18 at 09:00 EZETIMIBE (Zetia) 10 mg DAILY PO Last administered on 11/23/18 09:42; Admin Dose 10 MG; Start 11/08/18 at 09:00 Folic Acid (Folic Acid) 1 mg DAILY PO Last administered on 11/23/18 09:43; Admin Dose 1 MG; Start 11/08/18 at 09:00 Pantoprazole (Protonix Tab) 40 mg DAILY@06 PO Last administered on 11/23/18 06:11; Admin Dose 40 MG; Start 11/08/18 at 06:00 Levothyroxine Sodium (Synthroid) 25 mcg DAILY@0600 PO Last administered on 11/23/18 06:11; Admin Dose 25 MCG; Start 11/08/18 at 06:30 Ondansetron HCl (Zofran Inj) 4 mg Q6H PRN IV NAUSEA AND/OR VOMITING Last administered on 11/12/18 12:55; Admin Dose 4 MG; Start 11/08/18 at 10:30 Lorazepam (Ativan) 0.5 mg Q6H PRN PO ANXIETY Last administered on 11/22/18 22:15; Admin Dose 0.5 MG; Start 11/09/18 at 00:00 Psyllium Hydrophilic Mucilloid (Metamucil) 1 pkt DAILY PO Last administered on 11/23/18 09:44; Admin Dose 1 PKT; Start 11/10/18 at 09:00 Megestrol Acetate (Megace Susp) 400 mg BID PO Last administered on 11/23/18 09:44; Admin Dose 400 MG; Start 11/12/18 at 21:00 Potassium Chloride (Klor-Con 20) 20 meq BID PO Last administered on 11/23/18 09:43; Admin Dose 20 MEQ; Start 11/14/18 at 21:00 Bumetanide (Bumex) 1 mg BID DIURETICS PO Last administered on 11/23/18 06:11; Admin Dose 1 MG; Start 11/16/18 at 18:00 Metoprolol Tartrate (Lopressor) 100 mg BID PO Last administered on 11/23/18 09:44; Admin Dose 100 MG; Start 11/20/18 at 21:00 Cephalexin (Keflex) 500 mg TID PO Last administered on 11/23/18at 13:26; Admin Dose 500 MG; Start 11/22/18 at 21:00; Stop 11/25/18 at 13:01 CRISTIAN LEBLANC M.D. Nov 23, 2018 13:41
--- NOTE | 2018-11-23 14:35 | CONS ---
Assessment/Plan Cardiology NYHA: III Heart Failure Type: Acute on Chronic Heart Failure Type: Both Assessment/Plan Assessment/Plan (Daily) Atrial fibrillation with initially rapid ventricular rates, improved Nausea, vomiting-resolved Acute decompensated systolic and diastolic congestive heart failure Acute kidney injury-improving Mitral and tricuspid valve regurgitation Possible colitis Hypertension Dyslipidemia History of pacemaker Heart rate trend overall improving, continue beta-carine and titrate as needed Patient appears near euvolemic, continue diuretics. Being titrated as per nephrology Continue anticoagulation if no contraindication Consultation Date/Type/Reason Admit Date/Time Nov 07, 2018 at 12:41 Initial Consult Date 11/12/18 Type of Consult Cardiology Requesting Provider: REJI KAUFFMAN MD Date/Time of Note DATE: 11/23/18 TIME: 14:34 24 HR Interval Summary Free Text/Dictation the aptient stable Exam/Review of Systems Vital Signs Vitals Vital Signs Date Temp Pulse Resp B/P (MAP) Pulse Ox O2 O2 Flow FiO2 Time Delivery Rate 11/23/18 89 12:13 11/23/18 98.0 20 133/70 97 Room Air 11:01 (91) 11/23/18 2.0 07:40 Intake and Output 11/22/18 11/22/18 11/23/18 1515:00 23:00 07:00 IntakeIntake Total 50 ml 710 ml 120 ml BalanceBalance 50 ml 710 ml 120 ml Labs Result Diagram: 11/23/18 0545 11/23/18 0545 Results 24hrs Laboratory Tests Test 11/23/18 05:45 White Blood Count 6.9 Red Blood Count 3.79 L Hemoglobin 12.4 Hematocrit 37.7 Mean Corpuscular Volume 99.5 Mean Corpuscular Hemoglobin 32.7 Mean Corpuscular Hemoglobin Concent 32.9 Red Cell Distribution Width 19.6 H Platelet Count 150 # Mean Platelet Volume 10.7 H Immature Granulocytes % 0.300 Neutrophils % 50.8 Lymphocytes % 38.3 Monocytes % 9.9 Eosinophils % 0.3 Basophils % 0.4 Nucleated Red Blood Cells % 0.0 Immature Granulocytes # 0.020 Neutrophils # 3.5 Lymphocytes # 2.7 Monocytes # 0.7 Eosinophils # 0.0 Basophils # 0.0 Nucleated Red Blood Cells # 0.0 Sodium Level 138 Potassium Level 4.5 Chloride Level 100 Carbon Dioxide Level 27 Anion Gap 11 Blood Urea Nitrogen 36 H Creatinine 1.35 H Est Glomerular Filtrat Rate mL/min Glucose Level 90 Calcium Level 8.7 Phosphorus Level 4.5 Magnesium Level 1.8 Medications Medications Current Medications Acetaminophen (Tylenol Tab) 650 mg Q6H PRN PO MILD PAIN(1-3)OR ELEVATED TEMP Last administered on 11/12/18 00:29; Admin Dose 650 MG; Start 11/07/18 at 10:00 Loperamide HCl (Imodium Cap) 2 mg QID PRN PO DIARRHEA Last administered on 11/09/18 02:45; Admin Dose 2 MG; Start 11/07/18 at 10:30 Amiodarone HCl (Cordarone) 100 mg DAILY PO Last administered on 11/23/18 09:44; Admin Dose 100 MG; Start 11/08/18 at 09:00 Apixaban (Eliquis) 2.5 mg BID PO Last administered on 11/23/18 09:43; Admin Dose 2.5 MG; Start 11/07/18 at 12:00 Cholecalciferol (Vitamin D) 2,000 unit DAILY PO Last administered on 11/23/18 09:43; Admin Dose 2,000 UNIT; Start 11/08/18 at 09:00 Donepezil HCl (Aricept) 10 mg DAILY PO Last administered on 11/23/18 09:43; Admin Dose 10 MG; Start 11/08/18 at 09:00 Escitalopram Oxalate (Lexapro) 20 mg DAILY PO Last administered on 11/23/18 09:43; Admin Dose 20 MG; Start 11/08/18 at 09:00 EZETIMIBE (Zetia) 10 mg DAILY PO Last administered on 11/23/18 09:42; Admin Dose 10 MG; Start 11/08/18 at 09:00 Folic Acid (Folic Acid) 1 mg DAILY PO Last administered on 11/23/18 09:43; Admin Dose 1 MG; Start 11/08/18 at 09:00 Pantoprazole (Protonix Tab) 40 mg DAILY@06 PO Last administered on 11/23/18 06 :11; Admin Dose 40 MG; Start 11/08/18 at 06:00 Levothyroxine Sodium (Synthroid) 25 mcg DAILY@0600 PO Last administered on 11/23/18 06:11; Admin Dose 25 MCG; Start 11/08/18 at 06:30 Ondansetron HCl (Zofran Inj) 4 mg Q6H PRN IV NAUSEA AND/OR VOMITING Last administered on 11/12/18 12:55; Admin Dose 4 MG; Start 11/08/18 at 10:30 Lorazepam (Ativan) 0.5 mg Q6H PRN PO ANXIETY Last administered on 11/22/18 22:15; Admin Dose 0.5 MG; Start 11/09/18 at 00:00 Psyllium Hydrophilic Mucilloid (Metamucil) 1 pkt DAILY PO Last administered on 11/23/18 09:44; Admin Dose 1 PKT; Start 11/10/18 at 09:00 Megestrol Acetate (Megace Susp) 400 mg BID PO Last administered on 11/23/18 09:44; Admin Dose 400 MG; Start 11/12/18 at 21:00 Potassium Chloride (Klor-Con 20) 20 meq BID PO Last administered on 11/23/18 0 9:43; Admin Dose 20 MEQ; Start 11/14/18 at 21:00 Bumetanide (Bumex) 1 mg BID DIURETICS PO Last administered on 11/23/18 06:11; Admin Dose 1 MG; Start 11/16/18 at 18:00 Metoprolol Tartrate (Lopressor) 100 mg BID PO Last administered on 11/23/18 09:44; Admin Dose 100 MG; Start 11/20/18 at 21:00 Cephalexin (Keflex) 500 mg TID PO Last administered on 11/23/18 13:26; Admin Dose 500 MG; Start 11/22/18 at 21:00; Stop 11/25/18 at 13:01 MALGORZATA TRISTAN MD Nov 23, 2018 14:35
[2018-11-23] MEDS: ONDANSETRON 4 MG INJ IV PRN (15:12)
[2018-11-23] MEDS: LORAZEPAM 0.5 MG TAB PO PRN (15:12)
--- NOTE | 2018-11-23 17:14 | CONS ---
Assessment/Plan Assessment/Plan Assessment/Plan (Daily) Assessment/Plan (Daily) 1. Nausea, vomiting and diarrhea which have subsided -resolved. 2. Atrial fibrillation for which she is on Eliquis. 3. Status post pacemaker insertion. 4. Dyslipidemia. 5. Hypothyroidism. 6. Hypertension. 7. Fatigue -likely due to depression -lexapro 8. Pedal edema pitting all the way up to knee, has reduced her drastically responded well to diuretics. Almost disappeared 9. Coagulopathy may be due to cirrhosis of liver -improved -heme following 10. Abnormal LFT -patient CAT scan shows nodular liver which may be due to cirrhosis and also steatosis is playing a role -Hep panel unremarkable -LFTs wnl now 11. Thrombocytopenia -followed by Dr Ramsay 12. Liver cirrhosis noted in CT scan -HEARD? -hep panel unremarkable. -hepatic autoimmune panel unremarkable Plan Continue present care discussed with the daughter [id number] time will follow up in the office Consultation Date/Type/Reason Admit Date/Time Nov 07, 2018 at 12:41 Initial Consult Date Requesting Provider: REJI KAUFFMAN MD Date/Time of Note DATE: 11/23/18 TIME: 17:12 24 HR Interval Summary Constitutional: no complaints, improved Exam/Review of Systems Exam Vitals Vital Signs Date Temp Pulse Resp B/P (MAP) Pulse Ox O2 O2 Flow FiO2 Time Delivery Rate 11/23/18 94 16:25 11/23/18 97.4 20 127/62 97 Room Air 15:00 (83) 11/23/18 2.0 07:40 Intake and Output 11/22/18 11/22/18 11/23/18 1515:00 23:00 07:00 IntakeIntake Total 50 ml 710 ml 120 ml BalanceBalance 50 ml 710 ml 120 ml Constitutional: alert, oriented, well developed Psych: no complaints, nl mood/affect Head: normocephalic, atraumatic Eyes: nl conjunctiva, EOMI, nl lids, nl sclera, PERRL ENMT: nl external ears & nose, nl lips & teeth, nl nasal mucosa & septum Neck: supple, non-tender Respiratory: clear to auscultation, normal air movement Cardiovascular: regular rate and rhythm, nl pulses Gastrointestinal: soft, nl liver, spleen, non-tender Musculoskeletal: nl extremities to inspection, nl gait and stance Extremities: normal pulses Neurological: CHIEF PHARMACIST II-XII intact, nl mental status, nl speech, nl strength Skin: nl turgor; No rash or lesions Lymph: nl lymph nodes Results Result Diagram: 11/23/18 0545 11/23/18 0545 Results 24hrs Laboratory Tests Test 11/23/18 05:45 White Blood Count 6.9 Red Blood Count 3.79 L Hemoglobin 12.4 Hematocrit 37.7 Mean Corpuscular Volume 99.5 Mean Corpuscular Hemoglobin 32.7 Mean Corpuscular Hemoglobin Concent 32.9 Red Cell Distribution Width 19.6 H Platelet Count 150 # Mean Platelet Volume 10.7 H Immature Granulocytes % 0.300 Neutrophils % 50.8 Lymphocytes % 38.3 Monocytes % 9.9 Eosinophils % 0.3 Basophils % 0.4 Nucleated Red Blood Cells % 0.0 Immature Granulocytes # 0.020 Neutrophils # 3.5 Lymphocytes # 2.7 Monocytes # 0.7 Eosinophils # 0.0 Basophils # 0.0 Nucleated Red Blood Cells # 0.0 Sodium Level 138 Potassium Level 4.5 Chloride Level 100 Carbon Dioxide Level 27 Anion Gap 11 Blood Urea Nitrogen 36 H Creatinine 1.35 H Est Glomerular Filtrat Rate mL/min Glucose Level 90 Calcium Level 8.7 Phosphorus Level 4.5 Magnesium Level 1.8 Medications Medication Current Medications Acetaminophen (Tylenol Tab) 650 mg Q6H PRN PO MILD PAIN(1-3)OR ELEVATED TEMP Last administered on 11/12/18at 00:29; Admin Dose 650 MG; Start 11/07/18 at 10:00 Loperamide HCl (Imodium Cap) 2 mg QID PRN PO DIARRHEA Last administered on 11/09/18at 02:45; Admin Dose 2 MG; Start 11/07/18 at 10:30 Amiodarone HCl (Cordarone) 100 mg DAILY PO Last administered on 11/23/18at 09:44; Admin Dose 100 MG; Start 11/08/18 at 09:00 Apixaban (Eliquis) 2.5 mg BID PO Last administered on 11/23/18at 09:43; Admin Dose 2.5 MG; Start 11/07/18 at 12:00 Cholecalciferol (Vitamin D) 2,000 unit DAILY PO Last administered on 11/23/18at 09:43; Admin Dose 2,000 UNIT; Start 11/08/18 at 09:00 Donepezil HCl (Aricept) 10 mg DAILY PO Last administered on 11/23/18 09:43; Admin Dose 10 MG; Start 11/08/18 at 09:00 Escitalopram Oxalate (Lexapro) 20 mg DAILY PO Last administered on 11/23/18 09:43; Admin Dose 20 MG; Start 11/08/18 at 09:00 EZETIMIBE (Zetia) 10 mg DAILY PO Last administered on 11/23/18 09:42; Admin Dose 10 MG; Start 11/08/18 at 09:00 Folic Acid (Folic Acid) 1 mg DAILY PO Last administered on 11/23/18 09:43; Admin Dose 1 MG; Start 11/08/18 at 09:00 Pantoprazole (Protonix Tab) 40 mg DAILY@06 PO Last administered on 11/23/18 06:11; Admin Dose 40 MG; Start 11/08/18 at 06:00 Levothyroxine Sodium (Synthroid) 25 mcg DAILY@0600 PO Last administered on 11/23/18 06:11; Admin Dose 25 MCG; Start 11/08/18 at 06:30 Ondansetron HCl (Zofran Inj) 4 mg Q6H PRN IV NAUSEA AND/OR VOMITING Last administered on 11/23/18 15:12; Admin Dose 4 MG; Start 11/08/18 at 10:30 Lorazepam (Ativan) 0.5 mg Q6H PRN PO ANXIETY Last administered on 11/23/18 15:12; Admin Dose 0.5 MG; Start 11/09/18 at 00:00 Psyllium Hydrophilic Mucilloid (Metamucil) 1 pkt DAILY PO Last administered on 11/23/18 09:44; Admin Dose 1 PKT; Start 11/10/18 at 09:00 Megestrol Acetate (Megace Susp) 400 mg BID PO Last administered on 11/23/18 09:44; Admin Dose 400 MG; Start 11/12/18 at 21:00 Potassium Chloride (Klor-Con 20) 20 meq BID PO Last administered on 11/23/18 09:43; Admin Dose 20 MEQ; Start 11/14/18 at 21:00 Bumetanide (Bumex) 1 mg BID DIURETICS PO Last administered on 11/23/18 06:11; Admin Dose 1 MG; Start 11/16/18 at 18:00 Metoprolol Tartrate (Lopressor) 100 mg BID PO Last administered on 11/23/18at 09:44; Admin Dose 100 MG; Start 11/20/18 at 21:00 Cephalexin (Keflex) 500 mg TID PO Last administered on 11/23/18at 13:26; Admin Dose 500 MG; Start 11/22/18 at 21:00; Stop 11/25/18 at 13:01 TONY SHETTY MD Nov 23, 2018 17:14
[2018-11-23] MEDS ORDERED: ZOLPIDEM 5 MG TAB PO PRN (18:00)
[2018-11-23] MEDS: PRAMIPEXOLE 0.25 MG TAB PO SCH (20:41)
--- NOTE | 2018-11-23 21:02 | PN ---
DATE: 11/23/2018 SUBJECTIVE: Follow up on acute systolic decompensated congestive heart failure, mild cirrhosis of li ayse, rheumatoid arthritis, recent acute kidney injury, thrombocytopenia, left foot cellulitis, hypert ension, hypothyroidism. The patient is complaining of restlessness in her extremities especially at bedtime and is unable to sleep. Denies any chest pain. The patient does report improved shortness b reath, although tired fairly quickly. No significant orthopnea. Denies any chest pain or abdominal pain. No reported vomiting. No reported fever or chills. PHYSICAL EXAMINATION: GENERAL: Revealed the patient to be awake, alert. VITAL SIGNS: Temperature 97.4, pulse 88, respirations 20, blood pressure 127/62, O2 saturation 97% o n room air. HEENT: Atraumatic, normocephalic. Conjunctivae and lids are normal. Oropharynx is clear. NECK: Supple, no mass or thyromegaly. CHEST: Diminished air entry at bases. No use of accessory muscles. CARDIOVASCULAR: The patient has irregularly irregular rhythm, variable S1. No murmur, gallop or rub . ABDOMEN: Soft, nondistended, nontender. Bowel sounds are present. EXTREMITIES: Still edematous. No clubbing, cyanosis. Left foot cellulitis has almost resolved. NEUROLOGIC: The patient is awake, alert, follows simple commands and moves all extremities. LABORATORY DATA: Done this morning, WBC 6.9, hemoglobin 12.4, platelet 150 up from 103. Chemistry: Sodium 138, potassium 4.5, BUN 36, creatinine 1.3 up from 1.2, glucose 90. Calcium 8.7, phosphorus 4.5, magnesium 1.8. IMPRESSION: 1. Acute decompensated systolic heart failure. 2. Chronic atrial fibrillation. Continue amiodarone, metoprolol and Eliquis. 3. Mild dementia. Continue Aricept. 4. Depression. Continue Lexapro. 5. Hypothyroidism. Continue Synthroid. 6. Left foot cellulitis. The patient is status post IV Ancef, currently completing course of oral K eflex. 7. Possible restless leg syndrome. Continue Mirapex. 8. Recent acute kidney injury. We will continue to monitor creatinine closely. 9. Hypovitaminosis D. We will continue vitamin supplement. 10. Rheumatoid arthritis. Hold off on methotrexate due to cirrhotic changes and recent coagulopathy . Plan of care was discussed with the patient's family. We will order followup basic metabolic panel t omorrow. Dictated By: REJI VILLARREAL/CHRISTIE Conf#: [id number] DID#: [id number] CC: ONOFRE GREGORIO DO;*EndCC*
[2018-11-24] VITALS (11 sets, daily range): BP systolic 115–124; BP diastolic 59–75; PULSE 79–90; RESP 17–20
[2018-11-24] MEDS ORDERED: LORAZEPAM 2 MG INJ IV ONE (00:30)
[2018-11-24] MEDS: PANTOPRAZOLE (EC) 40 MG TAB PO SCH (06:29)
[2018-11-24] MEDS: BUMETANIDE 1 MG TAB PO SCH (06:29)
[2018-11-24] MEDS: LEVOTHYROXINE 25 MCG TAB PO SCH (06:29)
[2018-11-24] MEDS: MEGESTROL (40 MG/ML) 10ML CUP PO SCH ×2 (08:14→21:03)
[2018-11-24] MEDS: CEPHALEXIN 500 MG CAP PO SCH ×3 (08:14→21:08)
[2018-11-24] MEDS: ESCITALOPRAM 10 MG TAB PO SCH (08:14)
[2018-11-24] MEDS: METOPROLOL 100 MG TAB PO SCH ×2 (08:15→21:09)
[2018-11-24] MEDS: AMIODARONE 200 MG TAB PO SCH (08:15)
[2018-11-24] MEDS: CHOLECALCIFEROL 2,000 UNIT CAP PO SCH (08:16)
[2018-11-24] MEDS: APIXABAN 5 MG TABLET PO SCH (08:16)
[2018-11-24] MEDS: POTASSIUM CHLORIDE (SR) 20 MEQ TAB PO SCH (08:16)
[2018-11-24] MEDS: FOLIC ACID 1 MG TAB PO SCH (08:16)
[2018-11-24] MEDS: DONEPEZIL 10 MG TAB PO SCH (08:17)
[2018-11-24] MEDS: EZETIMIBE 10 MG TAB PO SCH (08:17)
[2018-11-24] MEDS: PSYLLIUM 28% PACKET PO SCH (08:17)
--- NOTE | 2018-11-24 09:30 | PN ---
Date/Time of Note Date/Time of Note DATE: 11/24/18 TIME: 09:23 Assessment/Plan VTE Prophylaxis Risk score (from N[facility])>0 risk: 5 SCD applied (from [facility] [place]): No SCD contraindicated: other Pharmacological prophylaxis: other Pharm contraindication: other Lines/Catheters IV Catheter Type (from [facility]): Mid Line Central line still needed: Yes Urinary Cath still in place: No Assessment/Plan Assessment/Plan 1. Acute decompensated systolic heart failure. 2. Chronic atrial fibrillation. Continue amiodarone, metoprolol and Eliquis. 3. Mild dementia. Continue Aricept. 4. Depression. Continue Lexapro. 5. Hypothyroidism. Continue Synthroid. 6. Left foot cellulitis. The patient is status post IV Ancef, currently completing course of oral Keflex. 7. Possible restless leg syndrome. Continue Mirapex. 8. Recent acute kidney injury. We will continue to monitor creatinine closely. 9. Hypovitaminosis D. We will continue vitamin supplement. 10. Rheumatoid arthritis. Hold off on methotrexate due to cirrhotic changes and recent coagulopathy. Plan of care was discussed with the patient's family. Patient seen in co llaboration with Dr Rayo Result Diagram: 11/23/18 0545 11/24/18 0452 Results 24hrs Laboratory Tests Test 11/24/18 04:52 Sodium Level 137 Potassium Level 4.8 Chloride Level 101 Carbon Dioxide Level 25 Anion Gap 11 Blood Urea Nitrogen 40 H Creatinine 1.73 H Est Glomerular Filtrat Rate mL/min Glucose Level 80 Calcium Level 8.3 L Subjective 24 Hr Interval Summary Free Text/Dictation Resting; c/o general weakness; denies any chest pain afebrile daughter at bed side- all Qs answered dw staff Constitutional: requiring O2 Eyes: no complaints ENT: no complaints Respiratory: no complaints Cardiovascular: no complaints Gastrointestinal: no complaints Genitourinary: no complaints Musculoskeletal: no complaints Skin: no complaints Neurologic: no complaints Endocrine: no complaints Psychological: nl mood/affect Immunologic: no complaints Exam/Review of Systems Exam Vitals Vital Signs Date Temp Pulse Resp B/P (MAP) Pulse Ox O2 O2 Flow FiO2 Time Delivery Rate 11/24/18 88 08:00 11/24/18 97.4 20 121/75 96 Room Air 07:27 (90) 11/23/18 2.0 07:40 Intake and Output 11/23/18 11/23/18 11/24/18 1515:00 23:00 07:00 IntakeIntake Total 240 ml 1050 ml 60 ml BalanceBalance 240 ml 1050 ml 60 ml Constitutional: alert, well developed Psych: nl mood/affect Eyes: nl lids ENMT: nl external ears & nose Neck: non-tender Respiratory: clear to auscultation Cardiovascular: nl pulses, other (s1s2) Gastrointestinal: soft, non-tender Musculoskeletal: muscle weakness Extremities: edema Neurological: nl speech, other (alertresponsiv) Skin: nl turgor Results Results 24hrs Laboratory Tests Test 11/24/18 04:52 Sodium Level 137 Potassium Level 4.8 Chloride Level 101 Carbon Dioxide Level 25 Anion Gap 11 Blood Urea Nitrogen 40 H Creatinine 1.73 H Est Glomerular Filtrat Rate mL/min Glucose Level 80 Calcium Level 8.3 L Medications Medication Current Medications Acetaminophen (Tylenol Tab) 650 mg Q6H PRN PO MILD PAIN(1-3)OR ELEVATED TEMP Last administered on 11/12/18at 00:29; Admin Dose 650 MG; Start 11/07/18 at 10:00 Loperamide HCl (Imodium Cap) 2 mg QID PRN PO DIARRHEA Last administered on 11/09/18at 02:45; Admin Dose 2 MG; Start 11/07/18 at 10:30 Amiodarone HCl (Cordarone) 100 mg DAILY PO Last administered on 11/24/18at 08:15; Admin Dose 100 MG; Start 11/08/18 at 09:00 Apixaban (Eliquis) 2.5 mg BID PO Last administered on 11/24/18at 08:16; Admin Dose 2.5 MG; Start 11/07/18 at 12:00 Cholecalciferol (Vitamin D) 2,000 unit DAILY PO Last administered on 11/24/18at 08:16; Admin Dose 2,000 UNIT; Start 11/08/18 at 09:00 Donepezil HCl (Aricept) 10 mg DAILY PO Last administered on 11/24/18at 08:17; Admin Dose 10 MG; Start 11/08/18 at 09:00 Escitalopram Oxalate (Lexapro) 20 mg DAILY PO Last administered on 11/24/18at 08:14; Admin Dose 20 MG; Start 11/08/18 at 09:00 EZETIMIBE (Zetia) 10 mg DAILY PO Last administered on 11/24/18 08:17; Admin Dose 10 MG; Start 11/08/18 at 09:00 Folic Acid (Folic Acid) 1 mg DAILY PO Last administered on 11/24/18 08:16; Admin Dose 1 MG; Start 11/08/18 at 09:00 Pantoprazole (Protonix Tab) 40 mg DAILY@06 PO Last administered on 11/24/18 06:29; Admin Dose 40 MG; Start 11/08/18 at 06:00 Levothyroxine Sodium (Synthroid) 25 mcg DAILY@0600 PO Last administered on 11/24/18 06:29; Admin Dose 25 MCG; Start 11/08/18 at 06:30 Ondansetron HCl (Zofran Inj) 4 mg Q6H PRN IV NAUSEA AND/OR VOMITING Last administered on 11/23/18 15:12; Admin Dose 4 MG; Start 11/08/18 at 10:30 Lorazepam (Ativan) 0.5 mg Q6H PRN PO ANXIETY Last administered on 11/23/18 15:12; Admin Dose 0.5 MG; Start 11/09/18 at 00:00 Psyllium Hydrophilic Mucilloid (Metamucil) 1 pkt DAILY PO Last administered on 11/24/18 08:17; Admin Dose 1 PKT; Start 11/10/18 at 09:00 Megestrol Acetate (Megace Susp) 400 mg BID PO Last administered on 11/24/18 08:14; Admin Dose 400 MG; Start 11/12/18 at 21:00 Potassium Chloride (Klor-Con 20) 20 meq BID PO Last administered on 11/24/18 08:16; Admin Dose 20 MEQ; Start 11/14/18 at 21:00 Bumetanide (Bumex) 1 mg BID DIURETICS PO Last administered on 11/24/18 06:29; Admin Dose 1 MG; Start 11/16/18 at 18:00 Metoprolol Tartrate (Lopressor) 100 mg BID PO Last administered on 11/24/18 08:15; Admin Dose 100 MG; Start 11/20/18 at 21:00 Cephalexin (Keflex) 500 mg TID PO Last administered on 11/24/18 08:14; Admin Dose 500 MG; Start 11/22/18 at 21:00; Stop 11/25/18 at 13:01 Zolpidem Tartrate (Ambien) 5 mg HS PRN PO INSOMNIA Last administered on 11/23/18at 20:34; Admin Dose 5 MG; Start 11/23/18 at 18:00 Pramipexole (Mirapex) 0.25 mg HS PO Last administered on 11/23/18at 20:41; Admin Dose 0.25 MG; Start 11/23/18 at 21:00 HOMERO ISAACS Nov 24, 2018 09:30
--- NOTE | 2018-11-24 09:44 | CONS ---
Assessment/Plan Cardiology NYHA: III Heart Failure Type: Acute on Chronic Heart Failure Type: Both Assessment/Plan Assessment/Plan (Daily) Atrial fibrillation with initially rapid ventricular rates, improved Nausea, vomiting-resolved Acute decompensated systolic and diastolic congestive heart failure Acute kidney injury-improving Mitral and tricuspid valve regurgitation Possible colitis Hypertension Dyslipidemia History of pacemaker Heart rate trend overall improving, continue beta-carine and titrate as needed Patient appears near euvolemic, continue diuretics. Being titrated as per nephrology Continue anticoagulation if no contraindication Consultation Date/Type/Reason Admit Date/Time Nov 07, 2018 at 12:41 Initial Consult Date 11/12/18 Type of Consult Cardiology Requesting Provider: REJI KAUFFMAN MD Date/Time of Note DATE: 11/24/18 TIME: 09:43 24 HR Interval Summary Free Text/Dictation the aptient with no cahnge Exam/Review of Systems Vital Signs Vitals Vital Signs Date Temp Pulse Resp B/P (MAP) Pulse Ox O2 O2 Flow FiO2 Time Delivery Rate 11/24/18 88 08:00 11/24/18 97.4 20 121/75 96 Room Air 07:27 (90) 11/23/18 2.0 07:40 Intake and Output 11/23/18 11/23/18 11/24/18 1515:00 23:00 07:00 IntakeIntake Total 240 ml 1050 ml 60 ml BalanceBalance 240 ml 1050 ml 60 ml Labs Result Diagram: 11/23/18 0545 11/24/18 0452 Results 24hrs Laboratory Tests Test 11/24/18 04:52 Sodium Level 137 Potassium Level 4.8 Chloride Level 101 Carbon Dioxide Level 25 Anion Gap 11 Blood Urea Nitrogen 40 H Creatinine 1.73 H Est Glomerular Filtrat Rate mL/min Glucose Level 80 Calcium Level 8.3 L Medications Medications Current Medications Acetaminophen (Tylenol Tab) 650 mg Q6H PRN PO MILD PAIN(1-3)OR ELEVATED TEMP Last administered on 11/12/18at 00:29; Admin Dose 650 MG; Start 11/07/18 at 10:00 Loperamide HCl (Imodium Cap) 2 mg QID PRN PO DIARRHEA Last administered on 11/09/18at 02:45; Admin Dose 2 MG; Start 11/07/18 at 10:30 Amiodarone HCl (Cordarone) 100 mg DAILY PO Last administered on 11/24/18 08:15; Admin Dose 100 MG; Start 11/08/18 at 09:00 Apixaban (Eliquis) 2.5 mg BID PO Last administered on 11/24/18 08:16; Admin Dose 2.5 MG; Start 11/07/18 at 12:00 Cholecalciferol (Vitamin D) 2,000 unit DAILY PO Last administered on 11/24/18 08:16; Admin Dose 2,000 UNIT; Start 11/08/18 at 09:00 Donepezil HCl (Aricept) 10 mg DAILY PO Last administered on 11/24/18 08:17; Admin Dose 10 MG; Start 11/08/18 at 09:00 Escitalopram Oxalate (Lexapro) 20 mg DAILY PO Last administered on 11/24/18 08:14; Admin Dose 20 MG; Start 11/08/18 at 09:00 EZETIMIBE (Zetia) 10 mg DAILY PO Last administered on 11/24/18 08:17; Admin Dose 10 MG; Start 11/08/18 at 09:00 Folic Acid (Folic Acid) 1 mg DAILY PO Last administered on 11/24/18 08:16; Admin Dose 1 MG; Start 11/08/18 at 09:00 Pantoprazole (Protonix Tab) 40 mg DAILY@06 PO Last administered on 11/24/18 06:29; Admin Dose 40 MG; Start 11/08/18 at 06:00 Levothyroxine Sodium (Synthroid) 25 mcg DAILY@0600 PO Last administered on 11/24/18 06:29; Admin Dose 25 MCG; Start 11/08/18 at 06:30 Ondansetron HCl (Zofran Inj) 4 mg Q6H PRN IV NAUSEA AND/OR VOMITING Last administered on 11/23/18 15:12; Admin Dose 4 MG; Start 11/08/18 at 10:30 Lorazepam (Ativan) 0.5 mg Q6H PRN PO ANXIETY Last administered on 11/23/18 15:12; Admin Dose 0.5 MG; Start 11/09/18 at 00:00 Psyllium Hydrophilic Mucilloid (Metamucil) 1 pkt DAILY PO Last administered on 11/24/18 08:17; Admin Dose 1 PKT; Start 11/10/18 at 09:00 Megestrol Acetate (Megace Susp) 400 mg BID PO Last administered on 11/24/18 08:14; Admin Dose 400 MG; Start 11/12/18 at 21:00 Potassium Chloride (Klor-Con 20) 20 meq BID PO Last administered on 11/24/18 08:16; Admin Dose 20 MEQ; Start 11/14/18 at 21:00 Bumetanide (Bumex) 1 mg BID DIURETICS PO Last administered on 11/24/18 06:29; Admin Dose 1 MG; Start 11/16/18 at 18:00 Metoprolol Tartrate (Lopressor) 100 mg BID PO Last administered on 11/24/18 08:15; Admin Dose 100 MG; Start 11/20/18 at 21:00 Cephalexin (Keflex) 500 mg TID PO Last administered on 11/24/18 08:14; Admin Dose 500 MG; Start 11/22/18 at 21:00; Stop 11/25/18 at 13:01 Zolpidem Tartrate (Ambien) 5 mg HS PRN PO INSOMNIA Last administered on 11/23/18 20:34; Admin Dose 5 MG; Start 11/23/18 at 18:00 Pramipexole (Mirapex) 0.25 mg HS PO Last administered on 11/23/18 20:41; Admin Dose 0.25 MG; Start 11/23/18 at 21:00 MALGORZATA TRISTAN MD Nov 24, 2018 09:44
--- NOTE | 2018-11-24 09:46 | CONS ---
Consult Date/Type/Reason Admit Date/Time Nov 07, 2018 at 12:41 Initial Consult Date 11/12/18 Requesting Provider: REJI KAUFFMAN MD Date/Time of Note DATE: 11/24/18 TIME: 09:39 Subjective 83 yo F admitted for acute systolic decompensated congestive heart failure, mild cirrhosis of liver, rheumatoid arthritis, recent acute kidney injury, thrombocytopenia, left foot cellulitis, hypertension, hypothyroidism. The patient is stable. No events overnight. The patient's shortness of breath has improved. OBJECTIVE: HEENT: Head is normocephalic. NECK: Supple. HEART: Regular rate. LUNGS: Show diminished breath sounds at base. ABDOMEN: Soft, nontender to palpation without rebound or guarding. EXTREMITIES: Negative for clubbing, cyanosis, no edema. DERMATOLOGIC: No rashes. MUSCULOSKELETAL: No joint effusion. NEUROLOGIC: No change in exam. Objective Vitals Vital Signs Date Temp Pulse Resp B/P (MAP) Pulse Ox O2 O2 Flow FiO2 Time Delivery Rate 11/24/18 88 08:00 11/24/18 97.4 20 121/75 96 Room Air 07:27 (90) 11/23/18 2.0 07:40 Intake and Output 11/23/18 11/23/18 11/24/18 1515:00 23:00 07:00 IntakeIntake Total 240 ml 1050 ml 60 ml BalanceBalance 240 ml 1050 ml 60 ml Results/Medications Result Diagram: 11/23/18 0545 11/24/18 0452 Results 24 hrs Laboratory Tests Test 11/24/18 04:52 Sodium Level 137 Potassium Level 4.8 Chloride Level 101 Carbon Dioxide Level 25 Anion Gap 11 Blood Urea Nitrogen 40 H Creatinine 1.73 H Est Glomerular Filtrat Rate mL/min Glucose Level 80 Calcium Level 8.3 L Home Meds Reported Medications Icosapent Ethyl (VASCEPA) 1 Gm Capsule, 1 GM PO QID, CAP 11/07/18 Linaclotide (LINZESS) 145 Mcg Capsule, 145 MCG PO DAILY, #30 CAP 11/07/18 Furosemide* (Furosemide*) 20 Mg Tablet, 20 MG PO DAILY, #60 TAB 11/07/18 Ferrous Sulfate* (Ferrous Sulfate*) 325 Mg Tabec, 325 MG PO TID, TAB 11/07/18 Diclofenac Sodium* (Diclofenac Sodium*) 75 Mg Tablet.dr, 75 MG PO BID, #60 TAB 11/07/18 Cholecalciferol (Vitamin D3) (VITAMIN D-3) 2,000 Unit Capsule, 2000 UNIT PO, CAP 11/07/18 Esomeprazole Magnesium (Esomeprazole Magnesium) 20 Mg Capsule.dr, 20 MG PO BEFORE BREAKFAST, #30 CAP 11/07/18 Escitalopram Oxalate* (Escitalopram Oxalate*) 20 Mg Tablet, 20 MG PO DAILY, #30 TAB 11/07/18 Losartan Potassium* (Losartan Potassium*) 100 Mg Tablet, 100 MG PO DAILY, TAB 11/07/18 Calcium Carbonate* (Calcium Carbonate*) 600 MG Ca Tab, 600 MG PO, TAB 11/07/18 Folic Acid* (Folic Acid*) 1 Mg Tablet, 1 MG PO DAILY, TAB 11/07/18 Apixaban* (Eliquis*) 2.5 Mg Tablet, 2.5 MG PO BID, TAB 11/07/18 Metoprolol Tartrate* (Lopressor*) 100 Mg Tablet, 200 MG PO BID, #120 TAB 11/07/18 Ezetimibe* (Zetia*) 10 Mg Tablet, 10 MG PO DAILY, TAB 11/07/18 Donepezil* (Donepezil*) 10 Mg Tablet, 10 MG PO DAILY, #30 TAB 11/07/18 Amiodarone Hcl* (Amiodarone Hcl*) 200 Mg Tablet, 100 MG PO BID for [id number], #60 TAB 11/07/18 Amlodipine Besylate* (Norvasc*) 5 Mg Tablet, 5 MG PO DAILY, TAB 11/07/18 Levocetirizine Dihydrochloride (LEVOCETIRIZINE DIHYDROCHLORIDE) 1 Gm Powder, 1 GM MC 05/03/16 Infliximab (Remicade) 100 Mg Soln, 100 MG IV 6 WEEKS 12/14/11 Levothyroxine Sodium (Levothroid) 25 Mcg Tablet, 25 MCG PO DAILY 12/14/11 Simvastatin (Simvastatin) 20 Mg Tablet, 20 MG PO DAILY 12/14/11 Lorazepam* (Ativan*) 0.5 Mg Tablet, 0.5 MG PO DAILY 12/14/11 Omeprazole* (Omeprazole*) 20 Mg Capsule.dr, 20 MG PO AC MEALS AND BEDTIME 12/14/11 Methotrexate Sodium (Methotrexate) 2.5 Mg/Dose-Pack Tab.ds.pk, 2.5 MG PO DAILY 12/14/11 Aspirin Ec (Aspir 81) 81 Mg Tablet.dr, 81 MG PO DAILY 12/14/11 Medications Current Medications Acetaminophen (Tylenol Tab) 650 mg Q6H PRN PO MILD PAIN(1-3)OR ELEVATED TEMP Last administered on 11/12/18 00:29; Admin Dose 650 MG; Start 11/07/18 at 10:00 Loperamide HCl (Imodium Cap) 2 mg QID PRN PO DIARRHEA Last administered on 11/09/18 02:45; Admin Dose 2 MG; Start 11/07/18 at 10:30 Amiodarone HCl (Cordarone) 100 mg DAILY PO Last administered on 11/24/18 08:15; Admin Dose 100 MG; Start 11/08/18 at 09:00 Apixaban (Eliquis) 2.5 mg BID PO Last administered on 11/24/18 08:16; Admin Dose 2.5 MG; Start 11/07/18 at 12:00 Cholecalciferol (Vitamin D) 2,000 unit DAILY PO Last administered on 11/24/18 08:16; Admin Dose 2,000 UNIT; Start 11/08/18 at 09:00 Donepezil HCl (Aricept) 10 mg DAILY PO Last administered on 11/24/18 08:17; Admin Dose 10 MG; Start 11/08/18 at 09:00 Escitalopram Oxalate (Lexapro) 20 mg DAILY PO Last administered on 11/24/18 08:14; Admin Dose 20 MG; Start 11/08/18 at 09:00 EZETIMIBE (Zetia) 10 mg DAILY PO Last administered on 11/24/18 08:17; Admin Dose 10 MG; Start 11/08/18 at 09:00 Folic Acid (Folic Acid) 1 mg DAILY PO Last administered on 11/24/18 08:16; Admin Dose 1 MG; Start 11/08/18 at 09:00 Pantoprazole (Protonix Tab) 40 mg DAILY@06 PO Last administered on 11/24/18 06:29; Admin Dose 40 MG; Start 11/08/18 at 06:00 Levothyroxine Sodium (Synthroid) 25 mcg DAILY@0600 PO Last administered on 11/24/18 06:29; Admin Dose 25 MCG; Start 11/08/18 at 06:30 Ondansetron HCl (Zofran Inj) 4 mg Q6H PRN IV NAUSEA AND/OR VOMITING Last administered on 11/23/18 15:12; Admin Dose 4 MG; Start 11/08/18 at 10:30 Lorazepam (Ativan) 0.5 mg Q6H PRN PO ANXIETY Last administered on 11/23/18 15:12; Admin Dose 0.5 MG; Start 11/09/18 at 00:00 Psyllium Hydrophilic Mucilloid (Metamucil) 1 pkt DAILY PO Last administered on 11/24/18 08:17; Admin Dose 1 PKT; Start 11/10/18 at 09:00 Megestrol Acetate (Megace Susp) 400 mg BID PO Last administered on 11/24/18 08:14; Admin Dose 400 MG; Start 11/12/18 at 21:00 Potassium Chloride (Klor-Con 20) 20 meq BID PO Last administered on 11/24/18 08:16; Admin Dose 20 MEQ; Start 11/14/18 at 21:00 Bumetanide (Bumex) 1 mg BID DIURETICS PO Last administered on 11/24/18 06:29; Admin Dose 1 MG; Start 11/16/18 at 18:00 Metoprolol Tartrate (Lopressor) 100 mg BID PO Last administered on 11/24/18 08:15; Admin Dose 100 MG; Start 11/20/18 at 21:00 Cephalexin (Keflex) 500 mg TID PO Last administered on 11/24/18 08:14; Admin Dose 500 MG; Start 11/22/18 at 21:00; Stop 11/25/18 at 13:01 Zolpidem Tartrate (Ambien) 5 mg HS PRN PO INSOMNIA Last administered on 11/23/18 20:34; Admin Dose 5 MG; Start 11/23/18 at 18:00 Pramipexole (Mirapex) 0.25 mg HS PO Last administered on 11/23/18 20:41; Admin Dose 0.25 MG; Start 11/23/18 at 21:00 Assessment/Plan Assessment/Plan (Daily) 1. Nonoliguric acute kidney injury on top of chronic kidney disease stage III. Etiology of acute kidney injury is secondary to hemodynamics. Renal function is worse this am. decrease bumex dose as appears close to euvolemia. monitor labs. avoid nephrotoxins. all meds dosed ok. monitor k on supplements. - can resume arb at future date once chf and kidney function stabilized. 2. Acute systolic, diastolic heart failure. The patient appears compensated today. We will continue current Bumex 1 mg p.o. daily 3. Hypokalemia. Continue to monitor and replete. 4. Hypernatremia, improved. 5. Mineral bone disorder, monitor calcium and phosphorus levels. 6. Afib. Continue medical management. 7. Possible colitis. Continue current antibiotic regimen. 8. Rheumatoid arthritis. Continue to monitor. Follow up with rheumatology. VIVEK SALTER MD Nov 24, 2018 09:46
--- NOTE | 2018-11-24 11:50 | CONS ---
Assessment/Plan Assessment/Plan Assessment/Plan (Daily) Assessment/Plan Assessment/Plan (Daily) Assessment/Plan (Daily) 1. Nausea, vomiting and diarrhea which have subsided -resolved. 2. Atrial fibrillation for which she is on Eliquis. 3. Status post pacemaker insertion. 4. Dyslipidemia. 5. Hypothyroidism. 6. Hypertension. 7. Fatigue -likely due to depression -lexapro 8. Pedal edema pitting all the way up to knee, has reduced her drastically responded well to diuretics. Almost disappeared 9. Coagulopathy may be due to cirrhosis of liver -improved -heme following 10. Abnormal LFT -patient CAT scan shows nodular liver which may be due to cirrhosis and also steatosis is playing a role -Hep panel unremarkable -LFTs wnl now 11. Thrombocytopenia -followed by Dr Ramsay 12. Liver cirrhosis noted in CT scan -HEARD? -hep panel unremarkable. -hepatic autoimmune panel unremarkable 13. Rheumatoid arthritis patient is on methotrexate and NSAID Plan Continue present care Continue PPI and Linzess Consultation Date/Type/Reason Admit Date/Time Nov 07, 2018 at 12:41 Initial Consult Date Requesting Provider: REJI KAUFFMAN MD Date/Time of Note DATE: 11/24/18 TIME: 11:49 24 HR Interval Summary Constitutional: no complaints, improved Exam/Review of Systems Exam Vitals Vital Signs Date Temp Pulse Resp B/P (MAP) Pulse Ox O2 O2 Flow FiO2 Time Delivery Rate 11/24/18 97.7 82 20 115/61 97 Room Air 11:00 (79) 11/23/18 2.0 07:40 Intake and Output 11/23/18 11/23/18 11/24/18 1515:00 23:00 07:00 IntakeIntake Total 240 ml 1050 ml 60 ml BalanceBalance 240 ml 1050 ml 60 ml Constitutional: alert, oriented, well developed Psych: no complaints, nl mood/affect Head: normocephalic, atraumatic Eyes: nl conjunctiva, EOMI, nl lids, nl sclera, PERRL ENMT: nl external ears & nose, nl lips & teeth, nl nasal mucosa & septum Neck: supple, non-tender Respiratory: clear to auscultation, normal air movement Cardiovascular: regular rate and rhythm, nl pulses Gastrointestinal: soft, nl liver, spleen, non-tender Musculoskeletal: nl extremities to inspection, nl gait and stance Extremities: normal pulses Neurological: STATEMENT SERVICES REPRESENTATIVE II-XII intact, nl mental status, nl speech, nl strength Skin: nl turgor; No rash or lesions Lymph: nl lymph nodes Results Result Diagram: 11/23/18 0545 11/24/18 0452 Results 24hrs Laboratory Tests Test 11/24/18 04:52 Sodium Level 137 Potassium Level 4.8 Chloride Level 101 Carbon Dioxide Level 25 Anion Gap 11 Blood Urea Nitrogen 40 H Creatinine 1.73 H Est Glomerular Filtrat Rate mL/min Glucose Level 80 Calcium Level 8.3 L Medications Medication Current Medications Acetaminophen (Tylenol Tab) 650 mg Q6H PRN PO MILD PAIN(1-3)OR ELEVATED TEMP Last administered on 11/12/18 00:29; Admin Dose 650 MG; Start 11/07/18 at 10:00 Loperamide HCl (Imodium Cap) 2 mg QID PRN PO DIARRHEA Last administered on 11/09/18 02:45; Admin Dose 2 MG; Start 11/07/18 at 10:30 Amiodarone HCl (Cordarone) 100 mg DAILY PO Last administered on 11/24/18 08:15; Admin Dose 100 MG; Start 11/08/18 at 09:00 Apixaban (Eliquis) 2.5 mg BID PO Last administered on 11/24/18 08:16; Admin Dose 2.5 MG; Start 11/07/18 at 12:00 Cholecalciferol (Vitamin D) 2,000 unit DAILY PO Last administered on 11/24/18 08:16; Admin Dose 2,000 UNIT; Start 11/08/18 at 09:00 Donepezil HCl (Aricept) 10 mg DAILY PO Last administered on 11/24/18 08:17; Admin Dose 10 MG; Start 11/08/18 at 09:00 Escitalopram Oxalate (Lexapro) 20 mg DAILY PO Last administered on 11/24/18 08:14; Admin Dose 20 MG; Start 11/08/18 at 09:00 EZETIMIBE (Zetia) 10 mg DAILY PO Last administered on 11/24/18 08:17; Admin Dose 10 MG; Start 11/08/18 at 09:00 Folic Acid (Folic Acid) 1 mg DAILY PO Last administered on 11/24/18 08:16; Admin Dose 1 MG; Start 11/08/18 at 09:00 Pantoprazole (Protonix Tab) 40 mg DAILY@06 PO Last administered on 11/24/18 06:29; Admin Dose 40 MG; Start 11/08/18 at 06:00 Levothyroxine Sodium (Synthroid) 25 mcg DAILY@0600 PO Last administered on 11/24/18 06:29; Admin Dose 25 MCG; Start 11/08/18 at 06:30 Ondansetron HCl (Zofran Inj) 4 mg Q6H PRN IV NAUSEA AND/OR VOMITING Last administered on 11/23/18 15:12; Admin Dose 4 MG; Start 11/08/18 at 10:30 Lorazepam (Ativan) 0.5 mg Q6H PRN PO ANXIETY Last administered on 11/23/18 15:12; Admin Dose 0.5 MG; Start 11/09/18 at 00:00 Psyllium Hydrophilic Mucilloid (Metamucil) 1 pkt DAILY PO Last administered on 11/24/18 08:17; Admin Dose 1 PKT; Start 11/10/18 at 09:00 Megestrol Acetate (Megace Susp) 400 mg BID PO Last administered on 11/24/18 08:14; Admin Dose 400 MG; Start 11/12/18 at 21:00 Metoprolol Tartrate (Lopressor) 100 mg BID PO Last administered on 11/24/18 08:15; Admin Dose 100 MG; Start 11/20/18 at 21:00 Cephalexin (Keflex) 500 mg TID PO Last administered on 11/24/18 08:14; Admin Dose 500 MG; Start 11/22/18 at 21:00; Stop 11/25/18 at 13:01 Zolpidem Tartrate (Ambien) 5 mg HS PRN PO INSOMNIA Last administered on 11/23/18 20:34; Admin Dose 5 MG; Start 11/23/18 at 18:00 Pramipexole (Mirapex) 0.25 mg HS PO Last administered on 11/23/18 20:41; Admin Dose 0.25 MG; Start 11/23/18 at 21:00 Bumetanide (Bumex) 1 mg DAILY PO ; Start 11/25/18 at 09:00 Potassium Chloride (Klor-Con 20) 20 meq DAILY PO ; Start 11/25/18 at 09:00 TONY SHETTY MD Nov 24, 2018 11:50
[2018-11-24] MEDS: PRAMIPEXOLE 0.25 MG TAB PO SCH (21:07)
[2018-11-25] VITALS (11 sets, daily range): BP systolic 100–140; BP diastolic 58–84; PULSE 79–97; RESP 17–18
[2018-11-25] MEDS: PANTOPRAZOLE (EC) 40 MG TAB PO SCH (06:11)
[2018-11-25] MEDS: LEVOTHYROXINE 25 MCG TAB PO SCH (06:11)
--- NOTE | 2018-11-25 07:17 | PN ---
Date/Time of Note Date/Time of Note DATE: 11/25/18 TIME: 07:17 Assessment/Plan VTE [place] [facility] [place]: 5 [place] [facility] [place] SCD contraindicated: other Pharmacological prophylaxis: other Pharm contraindication: other Lines/Catheters IV Catheter Type (from [facility] [place] Mid Line Central line still needed: Yes Urinary Cath still in place: No Assessment/Plan Assessment/Plan 1. Acute decompensated systolic heart failure. 2. Chronic atrial fibrillation. Continue amiodarone, metoprolol and Eliquis. 3. Mild dementia. Continue Aricept. 4. Depression. Continue Lexapro. 5. Hypothyroidism. Continue Synthroid. 6. Left foot cellulitis. The patient is status post IV Ancef, currently completing course of oral Keflex. 7. Possible restless leg syndrome. Continue Mirapex. 8. Recent acute kidney injury. We will continue to monitor creatinine closely. 9. Hypovitaminosis D. We will continue vitamin supplement. 10. Rheumatoid arthritis. Hold off on methotrexate due to cirrhotic changes and recent coagulopathy. Plan of care was discussed with the patient's family. Patient seen in co llaboration with Dr Rayo Result Diagram: 11/25/18 0453 11/25/18 0453 Results 24hrs Laboratory Tests Test 11/25/18 04:53 White Blood Count 6.2 Red Blood Count 3.75 L Hemoglobin 12.1 Hematocrit 37.3 Mean Corpuscular Volume 99.5 Mean Corpuscular Hemoglobin 32.3 Mean Corpuscular Hemoglobin Concent 32.4 Red Cell Distribution Width 19.5 H Platelet Count 142 Mean Platelet Volume 10.8 H Immature Granulocytes % 0.300 Neutrophils % 46.1 Lymphocytes % 43.0 Monocytes % 9.8 Eosinophils % 0.3 Basophils % 0.5 Nucleated Red Blood Cells % 0.0 Immature Granulocytes # 0.020 Neutrophils # 2.9 Lymphocytes # 2.7 Monocytes # 0.6 Eosinophils # 0.0 Basophils # 0.0 Nucleated Red Blood Cells # 0.0 Sodium Level 136 Potassium Level 4.8 Chloride Level 99 Carbon Dioxide Level 25 Anion Gap 12 Blood Urea Nitrogen 45 H Creatinine 1.84 H Est Glomerular Filtrat Rate mL/min Glucose Level 95 Calcium Level 8.6 Phosphorus Level 4.9 Magnesium Level 2.1 Total Bilirubin 0.4 Direct Bilirubin 0.00 Indirect Bilirubin 0.4 Aspartate Amino Transf (AST/SGOT) 48 H Alanine Aminotransferase (ALT/SGPT) 48 Alkaline Phosphatase 70 Total Protein 6.0 L Albumin 3.3 Globulin 2.70 Albumin/Globulin Ratio 1.22 Subjective 24 Hr Interval Summary Free Text/Dictation Resting; c/o general weakness; denies any chest pain afebrile daughter at bed side- all Qs answered Acute Rehab - denied; patient is ableto ambulate in the hallway dw staff Exam/Review of Systems Exam Vitals Vital Signs Date Temp Pulse Resp B/P (MAP) Pulse Ox O2 O2 Flow FiO2 Time Delivery Rate 11/25/18 98.5 79 17 120/61 98 04:16 (80) 11/24/18 Nasal 2.0 23:03 Cannula Intake and Output 11/24/18 11/24/18 11/25/18 1515:00 23:00 07:00 IntakeIntake Total 240 ml 600 ml 500 ml OutputOutput Total 200 ml 200 ml BalanceBalance 40 ml 600 ml 300 ml Constitutional: alert, well developed Psych: nl mood/affect Head: atraumatic Eyes: nl lids, nl sclera ENMT: nl external ears & nose Neck: non-tender Respiratory: clear to auscultation Cardiovascular: nl pulses, other (s1s2) Gastrointestinal: soft, non-tender Musculoskeletal: muscle weakness Extremities: edema Neurological: nl speech, other (alert/responsive) Skin: nl turgor Lymph: nontender Results Results 24hrs Laboratory Tests Test 11/25/18 04:53 White Blood Count 6.2 Red Blood Count 3.75 L Hemoglobin 12.1 Hematocrit 37.3 Mean Corpuscular Volume 99.5 Mean Corpuscular Hemoglobin 32.3 Mean Corpuscular Hemoglobin Concent 32.4 Red Cell Distribution Width 19.5 H Platelet Count 142 Mean Platelet Volume 10.8 H Immature Granulocytes % 0.300 Neutrophils % 46.1 Lymphocytes % 43.0 Monocytes % 9.8 Eosinophils % 0.3 Basophils % 0.5 Nucleated Red Blood Cells % 0.0 Immature Granulocytes # 0.020 Neutrophils # 2.9 Lymphocytes # 2.7 Monocytes # 0.6 Eosinophils # 0.0 Basophils # 0.0 Nucleated Red Blood Cells # 0.0 Sodium Level 136 Potassium Level 4.8 Chloride Level 99 Carbon Dioxide Level 25 Anion Gap 12 Blood Urea Nitrogen 45 H Creatinine 1.84 H Est Glomerular Filtrat Rate mL/min Glucose Level 95 Calcium Level 8.6 Phosphorus Level 4.9 Magnesium Level 2.1 Total Bilirubin 0.4 Direct Bilirubin 0.00 Indirect Bilirubin 0.4 Aspartate Amino Transf (AST/SGOT) 48 H Alanine Aminotransferase (ALT/SGPT) 48 Alkaline Phosphatase 70 Total Protein 6.0 L Albumin 3.3 Globulin 2.70 Albumin/Globulin Ratio 1.22 Medications Medication Current Medications Acetaminophen (Tylenol Tab) 650 mg Q6H PRN PO MILD PAIN(1-3)OR ELEVATED TEMP Last administered on 11/12/18 00:29; Admin Dose 650 MG; Start 11/07/18 at 10:00 Loperamide HCl (Imodium Cap) 2 mg QID PRN PO DIARRHEA Last administered on 11/09/18 02:45; Admin Dose 2 MG; Start 11/07/18 at 10:30 Amiodarone HCl (Cordarone) 100 mg DAILY PO Last administered on 11/24/18 08:15; Admin Dose 100 MG; Start 11/08/18 at 09:00 Apixaban (Eliquis) 2.5 mg BID PO Last administered on 11/24/18 08:16; Admin Dose 2.5 MG; Start 11/07/18 at 12:00; Status Hold Cholecalciferol (Vitamin D) 2,000 unit DAILY PO Last administered on 11/24/18 08:16; Admin Dose 2,000 UNIT; Start 11/08/18 at 09:00 Donepezil HCl (Aricept) 10 mg DAILY PO Last administered on 11/24/18 08:17; Admin Dose 10 MG; Start 11/08/18 at 09:00 Escitalopram Oxalate (Lexapro) 20 mg DAILY PO Last administered on 11/24/18 08:14; Admin Dose 20 MG; Start 11/08/18 at 09:00 EZETIMIBE (Zetia) 10 mg DAILY PO Last administered on 11/24/18 08:17; Admin Dose 10 MG; Start 11/08/18 at 09:00 Folic Acid (Folic Acid) 1 mg DAILY PO Last administered on 11/24/18 08:16; Admin Dose 1 MG; Start 11/08/18 at 09:00 Pantoprazole (Protonix Tab) 40 mg DAILY@06 PO Last administered on 11/25/18 06:11; Admin Dose 40 MG; Start 11/08/18 at 06:00 Levothyroxine Sodium (Synthroid) 25 mcg DAILY@0600 PO Last administered on 11/25/18 06:11; Admin Dose 25 MCG; Start 11/08/18 at 06:30 Ondansetron HCl (Zofran Inj) 4 mg Q6H PRN IV NAUSEA AND/OR VOMITING Last administered on 11/23/18 15:12; Admin Dose 4 MG; Start 11/08/18 at 10:30 Lorazepam (Ativan) 0.5 mg Q6H PRN PO ANXIETY Last administered on 11/23/18 15:12; Admin Dose 0.5 MG; Start 11/09/18 at 00:00 Psyllium Hydrophilic Mucilloid (Metamucil) 1 pkt DAILY PO Last administered on 11/24/18 08:17; Admin Dose 1 PKT; Start 11/10/18 at 09:00 Megestrol Acetate (Megace Susp) 400 mg BID PO Last administered on 11/24/18 21 :03; Admin Dose 400 MG; Start 11/12/18 at 21:00 Metoprolol Tartrate (Lopressor) 100 mg BID PO Last administered on 11/24/18 21:09; Admin Dose 100 MG; Start 11/20/18 at 21:00 Cephalexin (Keflex) 500 mg TID PO Last administered on 11/24/18 21:08; Admin Dose 500 MG; Start 11/22/18 at 21:00; Stop 11/25/18 at 13:01 Zolpidem Tartrate (Ambien) 5 mg HS PRN PO INSOMNIA Last administered on 11/23/18 20:34; Admin Dose 5 MG; Start 11/23/18 at 18:00 Pramipexole (Mirapex) 0.25 mg HS PO Last administered on 11/24/18 21:07; Admin Dose 0.25 MG; Start 11/23/18 at 21:00 Bumetanide (Bumex) 1 mg DAILY PO ; Start 11/25/18 at 09:00 Potassium Chloride (Klor-Con 20) 20 meq DAILY PO ; Start 11/25/18 at 09:00 HOMERO ISAACS Nov 25, 2018 07:17
[2018-11-25] MEDS ORDERED: POTASSIUM CHLORIDE (SR) 20 MEQ TAB PO SCH (09:00)
--- NOTE | 2018-11-25 09:35 | CONS ---
Consult Date/Type/Reason Admit Date/Time Nov 07, 2018 at 12:41 Initial Consult Date 11/12/18 Requesting Provider: REJI KAUFFMAN MD Date/Time of Note DATE: 11/25/18 TIME: 09:32 Subjective 83 yo F admitted for acute systolic decompensated congestive heart failure, mild cirrhosis of liver, rheumatoid arthritis, recent acute kidney injury, thrombocytopenia, left foot cellulitis, hypertension, hypothyroidism. The patient is stable. No events overnight. The patient's shortness of breath has improved. continues good uo bumex decreased yesterday to 1mg qd OBJECTIVE: HEENT: Head is normocephalic. NECK: Supple. HEART: Regular rate. LUNGS: Show diminished breath sounds at base. ABDOMEN: Soft, nontender to palpation without rebound or guarding. EXTREMITIES: Negative for clubbing, cyanosis, no edema. DERMATOLOGIC: No rashes. MUSCULOSKELETAL: No joint effusion. NEUROLOGIC: No change in exam. Objective Vitals Vital Signs Date Temp Pulse Resp B/P (MAP) Pulse Ox O2 O2 Flow FiO2 Time Delivery Rate 11/25/18 85 08:53 11/25/18 97.5 17 120/58 97 07:48 (78) 11/24/18 Nasal 2.0 23:03 Cannula Intake and Output 11/24/18 11/24/18 11/25/18 1515:00 23:00 07:00 IntakeIntake Total 240 ml 600 ml 500 ml OutputOutput Total 200 ml 200 ml BalanceBalance 40 ml 600 ml 300 ml Results/Medications Result Diagram: 11/25/18 0453 11/25/18 0453 Results 24 hrs Laboratory Tests Test 11/25/18 04:53 White Blood Count 6.2 Red Blood Count 3.75 L Hemoglobin 12.1 Hematocrit 37.3 Mean Corpuscular Volume 99.5 Mean Corpuscular Hemoglobin 32.3 Mean Corpuscular Hemoglobin Concent 32.4 Red Cell Distribution Width 19.5 H Platelet Count 142 Mean Platelet Volume 10.8 H Immature Granulocytes % 0.300 Neutrophils % 46.1 Lymphocytes % 43.0 Monocytes % 9.8 Eosinophils % 0.3 Basophils % 0.5 Nucleated Red Blood Cells % 0.0 Immature Granulocytes # 0.020 Neutrophils # 2.9 Lymphocytes # 2.7 Monocytes # 0.6 Eosinophils # 0.0 Basophils # 0.0 Nucleated Red Blood Cells # 0.0 Sodium Level 136 Potassium Level 4.8 Chloride Level 99 Carbon Dioxide Level 25 Anion Gap 12 Blood Urea Nitrogen 45 H Creatinine 1.84 H Est Glomerular Filtrat Rate mL/min Glucose Level 95 Calcium Level 8.6 Phosphorus Level 4.9 Magnesium Level 2.1 Total Bilirubin 0.4 Direct Bilirubin 0.00 Indirect Bilirubin 0.4 Aspartate Amino Transf (AST/SGOT) 48 H Alanine Aminotransferase (ALT/SGPT) 48 Alkaline Phosphatase 70 Total Protein 6.0 L Albumin 3.3 Globulin 2.70 Albumin/Globulin Ratio 1.22 Home Meds Reported Medications Icosapent Ethyl (VASCEPA) 1 Gm Capsule, 1 GM PO QID, CAP 11/07/18 Linaclotide (LINZESS) 145 Mcg Capsule, 145 MCG PO DAILY, #30 CAP 11/07/18 Furosemide* (Furosemide*) 20 Mg Tablet, 20 MG PO DAILY, #60 TAB 11/07/18 Ferrous Sulfate* (Ferrous Sulfate*) 325 Mg Tabec, 325 MG PO TID, TAB 11/07/18 Diclofenac Sodium* (Diclofenac Sodium*) 75 Mg Tablet.dr, 75 MG PO BID, #60 TAB 11/07/18 Cholecalciferol (Vitamin D3) (VITAMIN D-3) 2,000 Unit Capsule, 2000 UNIT PO, CAP 11/07/18 Esomeprazole Magnesium (Esomeprazole Magnesium) 20 Mg Capsule.dr, 20 MG PO BEFORE BREAKFAST, #30 CAP 11/07/18 Escitalopram Oxalate* (Escitalopram Oxalate*) 20 Mg Tablet, 20 MG PO DAILY, #30 TAB 11/07/18 Losartan Potassium* (Losartan Potassium*) 100 Mg Tablet, 100 MG PO DAILY, TAB 11/07/18 Calcium Carbonate* (Calcium Carbonate*) 600 MG Ca Tab, 600 MG PO, TAB 11/07/18 Folic Acid* (Folic Acid*) 1 Mg Tablet, 1 MG PO DAILY, TAB 11/07/18 Apixaban* (Eliquis*) 2.5 Mg Tablet, 2.5 MG PO BID, TAB 11/07/18 Metoprolol Tartrate* (Lopressor*) 100 Mg Tablet, 200 MG PO BID, #120 TAB 11/07/18 Ezetimibe* (Zetia*) 10 Mg Tablet, 10 MG PO DAILY, TAB 11/07/18 Donepezil* (Donepezil*) 10 Mg Tablet, 10 MG PO DAILY, #30 TAB 11/07/18 Amiodarone Hcl* (Amiodarone Hcl*) 200 Mg Tablet, 100 MG PO BID for [id number], #60 TAB 11/07/18 Amlodipine Besylate* (Norvasc*) 5 Mg Tablet, 5 MG PO DAILY, TAB 11/07/18 Levocetirizine Dihydrochloride (LEVOCETIRIZINE DIHYDROCHLORIDE) 1 Gm Powder, 1 GM MC 05/03/16 Infliximab (Remicade) 100 Mg Soln, 100 MG IV 6 WEEKS 12/14/11 Levothyroxine Sodium (Levothroid) 25 Mcg Tablet, 25 MCG PO DAILY 12/14/11 Simvastatin (Simvastatin) 20 Mg Tablet, 20 MG PO DAILY 12/14/11 Lorazepam* (Ativan*) 0.5 Mg Tablet, 0.5 MG PO DAILY 12/14/11 Omeprazole* (Omeprazole*) 20 Mg Capsule.dr, 20 MG PO AC MEALS AND BEDTIME 12/14/11 Methotrexate Sodium (Methotrexate) 2.5 Mg/Dose-Pack Tab.ds.pk, 2.5 MG PO DAILY 12/14/11 Aspirin Ec (Aspir 81) 81 Mg Tablet.dr, 81 MG PO DAILY 12/14/11 Medications Current Medications Acetaminophen (Tylenol Tab) 650 mg Q6H PRN PO MILD PAIN(1-3)OR ELEVATED TEMP Last administered on 11/12/18at 00:29; Admin Dose 650 MG; Start 11/07/18 at 10:00 Loperamide HCl (Imodium Cap) 2 mg QID PRN PO DIARRHEA Last administered on 11/09/18at 02:45; Admin Dose 2 MG; Start 11/07/18 at 10:30 Amiodarone HCl (Cordarone) 100 mg DAILY PO Last administered on 11/24/18at 08:15; Admin Dose 100 MG; Start 11/08/18 at 09:00 Apixaban (Eliquis) 2.5 mg BID PO Last administered on 11/24/18 08:16; Admin Dose 2.5 MG; Start 11/07/18 at 12:00; Status Hold Cholecalciferol (Vitamin D) 2,000 unit DAILY PO Last administered on 11/24/18 08:16; Admin Dose 2,000 UNIT; Start 11/08/18 at 09:00 Donepezil HCl (Aricept) 10 mg DAILY PO Last administered on 11/24/18 08:17; Admin Dose 10 MG; Start 11/08/18 at 09:00 Escitalopram Oxalate (Lexapro) 20 mg DAILY PO Last administered on 11/24/18 08:14; Admin Dose 20 MG; Start 11/08/18 at 09:00 EZETIMIBE (Zetia) 10 mg DAILY PO Last administered on 11/24/18 08:17; Admin Dose 10 MG; Start 11/08/18 at 09:00 Folic Acid (Folic Acid) 1 mg DAILY PO Last administered on 11/24/18 08:16; Admin Dose 1 MG; Start 11/08/18 at 09:00 Pantoprazole (Protonix Tab) 40 mg DAILY@06 PO Last administered on 11/25/18 06:11; Admin Dose 40 MG; Start 11/08/18 at 06:00 Levothyroxine Sodium (Synthroid) 25 mcg DAILY@0600 PO Last administered on 11/25/18 06:11; Admin Dose 25 MCG; Start 11/08/18 at 06:30 Ondansetron HCl (Zofran Inj) 4 mg Q6H PRN IV NAUSEA AND/OR VOMITING Last administered on 11/23/18 15:12; Admin Dose 4 MG; Start 11/08/18 at 10:30 Lorazepam (Ativan) 0.5 mg Q6H PRN PO ANXIETY Last administered on 11/23/18 15:12; Admin Dose 0.5 MG; Start 11/09/18 at 00:00 Psyllium Hydrophilic Mucilloid (Metamucil) 1 pkt DAILY PO Last administered on 11/24/18 08:17; Admin Dose 1 PKT; Start 11/10/18 at 09:00 Megestrol Acetate (Megace Susp) 400 mg BID PO Last administered on 11/24/18 21:03; Admin Dose 400 MG; Start 11/12/18 at 21:00 Metoprolol Tartrate (Lopressor) 100 mg BID PO Last administered on 11/24/18 21:09; Admin Dose 100 MG; Start 11/20/18 at 21:00 Cephalexin (Keflex) 500 mg TID PO Last administered on 6/22/19at 21:08; Admin Dose 500 MG; Start 11/22/18 at 21:00; Stop 11/25/18 at 13:01 Zolpidem Tartrate (Ambien) 5 mg HS PRN PO INSOMNIA Last administered on 11/23/18at 20:34; Admin Dose 5 MG; Start 11/23/18 at 18:00 Pramipexole (Mirapex) 0.25 mg HS PO Last administered on 11/24/18at 21:07; Admin Dose 0.25 MG; Start 11/23/18 at 21:00 Bumetanide (Bumex) 1 mg DAILY PO ; Start 11/25/18 at 09:00 Potassium Chloride (Klor-Con 20) 20 meq DAILY PO ; Start 11/25/18 at 09:00 Assessment/Plan Hospital Course (Demo Recall) 1. Nonoliguric acute kidney injury on top of chronic kidney disease stage III. Etiology of acute kidney injury is secondary to hemodynamics. Renal function is worse this am. - already decrease bumex dose yesterday. monitor labs. avoid nephrotoxins. all meds dosed ok. monitor k on supplements. - can resume arb at future date once chf and kidney function stabilized. 2. Acute systolic, diastolic heart failure. The patient appears compensated today. We will continue current Bumex 1 mg p.o. daily 3. Hypokalemia. resolved. Continue to monitor 4. Hypernatremia, improved. 5. Mineral bone disorder, monitor calcium and phosphorus levels. 6. Afib. Continue medical management. 7. Possible colitis. Continue current antibiotic regimen. 8. Rheumatoid arthritis. Continue to monitor. Follow up with rheumatology. VIVEK SALTER MD Nov 25, 2018 09:35
[2018-11-25] MEDS: PSYLLIUM 28% PACKET PO SCH (10:24)
[2018-11-25] MEDS: MEGESTROL (40 MG/ML) 10ML CUP PO SCH ×2 (10:24→21:38)
[2018-11-25] MEDS: BUMETANIDE 1 MG TAB PO SCH (10:24)
[2018-11-25] MEDS: DONEPEZIL 10 MG TAB PO SCH (10:25)
[2018-11-25] MEDS: AMIODARONE 200 MG TAB PO SCH (10:25)
[2018-11-25] MEDS: CEPHALEXIN 500 MG CAP PO SCH ×2 (10:25→14:20)
[2018-11-25] MEDS: METOPROLOL 100 MG TAB PO SCH ×2 (10:25→21:00)
[2018-11-25] MEDS: FOLIC ACID 1 MG TAB PO SCH (10:25)
[2018-11-25] MEDS: ESCITALOPRAM 10 MG TAB PO SCH (10:25)
[2018-11-25] MEDS: EZETIMIBE 10 MG TAB PO SCH (10:25)
[2018-11-25] MEDS: CHOLECALCIFEROL 2,000 UNIT CAP PO SCH (10:25)
--- NOTE | 2018-11-25 14:59 | CONS ---
Assessment/Plan Assessment/Plan Assessment/Plan (Daily) Assessment/Plan (Daily) 1. Nausea, vomiting and diarrhea which have subsided -resolved. 2. Atrial fibrillation for which she is on Eliquis. 3. Status post pacemaker insertion. 4. Dyslipidemia. 5. Hypothyroidism. 6. Hypertension. 7. Fatigue -likely due to depression -lexapro 8. Pedal edema pitting all the way up to knee, has reduced her drastically responded well to diuretics. Almost disappeared 9. Coagulopathy may be due to cirrhosis of liver -improved -heme following 10. Abnormal LFT -patient CAT scan shows nodular liver which may be due to cirrhosis and also steatosis is playing a role, methotrexate has been stopped -Hep panel unremarkable -LFTs wnl now 11. Thrombocytopenia -followed by Dr Ramsay 12. Liver cirrhosis noted in CT scan -HEARD? -hep panel unremarkable. -hepatic autoimmune panel unremarkable 13. Rheumatoid arthritis patient is on methotrexate and NSAID Plan Continue present care Continue PPI and Linzess Consultation Date/Type/Reason Admit Date/Time Nov 07, 2018 at 12:41 Initial Consult Date Requesting Provider: REJI KAUFFMAN MD Date/Time of Note DATE: 11/25/18 TIME: 14:58 24 HR Interval Summary Constitutional: improved Exam/Review of Systems Exam Vitals Vital Signs Date Temp Pulse Resp B/P (MAP) Pulse Ox O2 O2 Flow FiO2 Time Delivery Rate 11/25/18 97 13:30 11/25/18 97.8 17 126/68 97 11:26 (87) 11/24/18 Nasal 2.0 23:03 Cannula Intake and Output 11/24/18 11/24/18 11/25/18 1515:00 23:00 07:00 IntakeIntake Total 240 ml 600 ml 500 ml OutputOutput Total 200 ml 200 ml BalanceBalance 40 ml 600 ml 300 ml Constitutional: alert, oriented, well developed Psych: no complaints, nl mood/affect Head: normocephalic, atraumatic Eyes: nl conjunctiva, EOMI, nl lids, nl sclera, PERRL ENMT: nl external ears & nose, nl lips & teeth, nl nasal mucosa & septum Neck: supple, non-tender Respiratory: clear to auscultation, normal air movement Cardiovascular: regular rate and rhythm, nl pulses Gastrointestinal: soft, nl liver, spleen, non-tender Musculoskeletal: nl extremities to inspection, nl gait and stance Extremities: normal pulses Neurological: [employer] II-XII intact, nl mental status, nl speech, nl strength Skin: nl turgor; No rash or lesions Lymph: nl lymph nodes Results Result Diagram: 11/25/1845211/25/183 Results 24hrs Laboratory Tests Test 11/25/18 04:53 White Blood Count 6.2 Red Blood Count 3.75 L Hemoglobin 12.1 Hematocrit 37.3 Mean Corpuscular Volume 99.5 Mean Corpuscular Hemoglobin 32.3 Mean Corpuscular Hemoglobin Concent 32.4 Red Cell Distribution Width 19.5 H Platelet Count 142 Mean Platelet Volume 10.8 H Immature Granulocytes % 0.300 Neutrophils % 46.1 Lymphocytes % 43.0 Monocytes % 9.8 Eosinophils % 0.3 Basophils % 0.5 Nucleated Red Blood Cells % 0.0 Immature Granulocytes # 0.020 Neutrophils # 2.9 Lymphocytes # 2.7 Monocytes # 0.6 Eosinophils # 0.0 Basophils # 0.0 Nucleated Red Blood Cells # 0.0 Sodium Level 136 Potassium Level 4.8 Chloride Level 99 Carbon Dioxide Level 25 Anion Gap 12 Blood Urea Nitrogen 45 H Creatinine 1.84 H Est Glomerular Filtrat Rate mL/min Glucose Level 95 Calcium Level 8.6 Phosphorus Level 4.9 Magnesium Level 2.1 Total Bilirubin 0.4 Direct Bilirubin 0.00 Indirect Bilirubin 0.4 Aspartate Amino Transf (AST/SGOT) 48 H Alanine Aminotransferase (ALT/SGPT) 48 Alkaline Phosphatase 70 Total Protein 6.0 L Albumin 3.3 Globulin 2.70 Albumin/Globulin Ratio 1.22 Medications Medication Current Medications Acetaminophen (Tylenol Tab) 650 mg Q6H PRN PO MILD PAIN(1-3)OR ELEVATED TEMP Last administered on 11/12/18at 00:29; Admin Dose 650 MG; Start 11/07/18 at 10:00 Loperamide HCl (Imodium Cap) 2 mg QID PRN PO DIARRHEA Last administered on 11/09/18at 02:45; Admin Dose 2 MG; Start 11/07/18 at 10:30 Amiodarone HCl (Cordarone) 100 mg DAILY PO Last administered on 11/25/18at 10:25; Admin Dose 100 MG; Start 11/08/18 at 09:00 Apixaban (Eliquis) 2.5 mg BID PO Last administered on 11/24/18 08:16; Admin Dose 2.5 MG; Start 11/07/18 at 12:00; Status Hold Cholecalciferol (Vitamin D) 2,000 unit DAILY PO Last administered on 11/25/18 10:25; Admin Dose 2,000 UNIT; Start 11/08/18 at 09:00 Donepezil HCl (Aricept) 10 mg DAILY PO Last administered on 11/25/18 10:25; Admin Dose 10 MG; Start 11/08/18 at 09:00 Escitalopram Oxalate (Lexapro) 20 mg DAILY PO Last administered on 11/25/18 10:25; Admin Dose 20 MG; Start 11/08/18 at 09:00 EZETIMIBE (Zetia) 10 mg DAILY PO Last administered on 11/25/18 10:25; Admin Dose 10 MG; Start 11/08/18 at 09:00 Folic Acid (Folic Acid) 1 mg DAILY PO Last administered on 11/25/18 10:25; Admin Dose 1 MG; Start 11/08/18 at 09:00 Pantoprazole (Protonix Tab) 40 mg DAILY@06 PO Last administered on 11/25/18 06:11; Admin Dose 40 MG; Start 11/08/18 at 06:00 Levothyroxine Sodium (Synthroid) 25 mcg DAILY@0600 PO Last administered on 11/25/18 06:11; Admin Dose 25 MCG; Start 11/08/18 at 06:30 Ondansetron HCl (Zofran Inj) 4 mg Q6H PRN IV NAUSEA AND/OR VOMITING Last administered on 11/23/18 15:12; Admin Dose 4 MG; Start 11/08/18 at 10:30 Lorazepam (Ativan) 0.5 mg Q6H PRN PO ANXIETY Last administered on 11/23/18 15:12; Admin Dose 0.5 MG; Start 11/09/18 at 00:00 Psyllium Hydrophilic Mucilloid (Metamucil) 1 pkt DAILY PO Last administered on 11/25/18 10:24; Admin Dose 1 PKT; Start 11/10/18 at 09:00 Megestrol Acetate (Megace Susp) 400 mg BID PO Last administered on 11/25/18 10:24; Admin Dose 400 MG; Start 11/12/18 at 21:00 Metoprolol Tartrate (Lopressor) 100 mg BID PO Last administered on 11/25/18 10:25; Admin Dose 100 MG; Start 11/20/18 at 21:00 Zolpidem Tartrate (Ambien) 5 mg HS PRN PO INSOMNIA Last administered on 11/23/18 20:34; Admin Dose 5 MG; Start 11/23/18 at 18:00 Pramipexole (Mirapex) 0.25 mg HS PO Last administered on 11/24/18 21:07; Admin Dose 0.25 MG; Start 11/23/18 at 21:00 Bumetanide (Bumex) 1 mg DAILY PO Last administered on 11/25/18 10:24; Admin Dose 1 MG; Start 11/25/18 at 09:00 Potassium Chloride (Klor-Con 20) 20 meq DAILY PO Last administered on 11/25/18 10:24; Admin Dose 20 MEQ; Start 11/25/18 at 09:00 TONY SHETTY MD Nov 25, 2018 14:59
[2018-11-25] MEDS: PRAMIPEXOLE 0.25 MG TAB PO SCH (21:28)
[2018-11-26] VITALS (13 sets, daily range): BP systolic 123–147; BP diastolic 59–73; PULSE 75–88; RESP 16–18
[2018-11-26] MEDS: LEVOTHYROXINE 25 MCG TAB PO SCH (06:41)
[2018-11-26] MEDS: PANTOPRAZOLE (EC) 40 MG TAB PO SCH (06:42)
--- NOTE | 2018-11-26 08:40 | PN ---
DATE: 11/26/2018 SUBJECTIVE: The patient is stable. The patient, however, noted to have less urinary output in the l ast 24 hours. No other events noted. No hemoptysis, hematemesis or hematochezia. OBJECTIVE: VITAL SIGNS: Blood pressure is 135/60, respirations 18, pulse 77, temperature 98.2. HEENT: Head is normocephalic. NECK: Supple. HEART: Regular rate. LUNGS: Show diminished breath sounds at the base. ABDOMEN: Soft, nontender to palpation without rebound or guarding. EXTREMITIES: Negative for clubbing, cyanosis. Trace edema. DERMATOLOGIC: No rashes. MUSCULOSKELETAL: No joint effusion. NEUROLOGIC: No change in exam. MEDICATIONS: Reviewed. LABORATORY DATA: Reviewed. ASSESSMENT AND PLAN: 1. Nonoliguric acute kidney injury on top of chronic kidney disease stage III. Etiology of acute ki dney injury is secondary to hemodynamics. Renal function has declined. Urinary output has been mini mal. We will repeat renal panel. May need to hold diuretic therapy if renal function further declin es. At this point, continue current treatment plan, supportive care and renally dose all medications . 2. Acute systolic, diastolic heart failure. The patient appears compensated. Continue to monitor r enal function closely. 3. Hypokalemia, improved. 4. Hypernatremia, improved. 5. Mineral bone disorder. Monitor calcium and phosphorus levels. 6. Atrial fibrillation. Continue medical management. 7. Possible colitis. The patient is completing antibiotic course. 8. Rheumatoid arthritis. Continue to monitor. Dictated By: BEENA MEDINA DO NR/NTS Conf#: [id number] DID#: [id number] CC: REJI KAUFFMAN MD; ONOFRE GREGORIO DO;*EndCC*
[2018-11-26] MEDS: BUMETANIDE 1 MG TAB PO SCH (09:01)
[2018-11-26] MEDS: MEGESTROL (40 MG/ML) 10ML CUP PO SCH ×2 (09:01→20:31)
[2018-11-26] MEDS: CHOLECALCIFEROL 2,000 UNIT CAP PO SCH (09:01)
[2018-11-26] MEDS: DONEPEZIL 10 MG TAB PO SCH (09:01)
[2018-11-26] MEDS: PSYLLIUM 28% PACKET PO SCH (09:01)
[2018-11-26] MEDS: FOLIC ACID 1 MG TAB PO SCH (09:02)
[2018-11-26] MEDS: ESCITALOPRAM 10 MG TAB PO SCH (09:02)
[2018-11-26] MEDS: METOPROLOL 100 MG TAB PO SCH ×2 (09:02→20:33)
[2018-11-26] MEDS: AMIODARONE 200 MG TAB PO SCH (09:02)
[2018-11-26] MEDS: EZETIMIBE 10 MG TAB PO SCH (09:02)
--- NOTE | 2018-11-26 11:34 | CONS ---
Assessment/Plan Assessment/Plan Hospital Course (Demo Recall) 83 yo female with N/V and diarrhea 1. Nausea, vomiting and diarrhea which have subsided now, most probably related to viral infection or of infectious etiology -resolved. 2. Atrial fibrillation for which she is on Eliquis. 3. Status post pacemaker insertion. 4. Dyslipidemia. 5. Hypothyroidism. 6. Hypertension. 7. Fatigue -likely due to depression -lexapro 8. Pedal edema pitting all the way up to knee, has reduced her drastically responded well to diuretics. 9. Coagulopathy may be due to cirrhosis of liver -improved -heme following 10. Abnormal LFT -patient CAT scan shows nodular liver which may be due to cirrhosis and also steatosis is playing a role -Hep panel unremarkable -LFTs wnl now 11. Thrombocytopenia -followed by Dr Ramsay 12. Liver cirrhosis noted in CT scan -HEARD? -hep panel unremarkable. -hepatic autoimmune panel unremarkable Plan Continue present care Pt examined and plan of care discussed with Dr Merchant Consultation Date/Type/Reason Admit Date/Time Nov 07, 2018 at 12:41 Initial Consult Date 11/12/18 Requesting Provider: REJI KAUFFMAN MD Date/Time of Note DATE: 11/26/18 TIME: 11:33 24 HR Interval Summary Free Text/Dictation No c/o abdominal pain or nausea. Tolerating PO diet. BM qd. No signs of GI bleeding. Exam/Review of Systems Exam Vitals Vital Signs Date Temp Pulse Resp B/P (MAP) Pulse Ox O2 O2 Flow FiO2 Time Delivery Rate 11/26/18 Nasal 2.0 10:29 Cannula 11/26/18 98.2 77 18 135/60 97 08:01 (85) Intake and Output 11/25/18 11/25/18 11/26/18 1515:00 23:00 07:00 IntakeIntake Total 590 ml 250 ml 460 ml OutputOutput Total 100 ml BalanceBalance 590 ml 250 ml 360 ml Constitutional: alert Psych: no complaints Head: normocephalic Eyes: nl sclera, PERRL Respiratory: normal air movement Gastrointestinal: soft, non-tender Neurological: nl mental status Results Result Diagram: 11/25/18 0453 11/26/18 0843 Results 24hrs Laboratory Tests Test 11/26/18 08:43 Sodium Level 133 L Potassium Level 5.1 Chloride Level 98 Carbon Dioxide Level 26 Anion Gap 9 Blood Urea Nitrogen 47 H Creatinine 1.87 H Est Glomerular Filtrat Rate mL/min Glucose Level 87 Calcium Level 7.9 L Medications Medication Current Medications Acetaminophen (Tylenol Tab) 650 mg Q6H PRN PO MILD PAIN(1-3)OR ELEVATED TEMP Last administered on 11/12/18 00:29; Admin Dose 650 MG; Start 11/07/18 at 10:00 Loperamide HCl (Imodium Cap) 2 mg QID PRN PO DIARRHEA Last administered on 11/09/18 02:45; Admin Dose 2 MG; Start 11/07/18 at 10:30 Amiodarone HCl (Cordarone) 100 mg DAILY PO Last administered on 11/26/18 09:02; Admin Dose 100 MG; Start 11/08/18 at 09:00 Apixaban (Eliquis) 2.5 mg BID PO Last administered on 11/24/18 08:16; Admin Dose 2.5 MG; Start 11/07/18 at 12:00; Status Hold Cholecalciferol (Vitamin D) 2,000 unit DAILY PO Last administered on 11/26/18 09:01; Admin Dose 2,000 UNIT; Start 11/08/18 at 09:00 Donepezil HCl (Aricept) 10 mg DAILY PO Last administered on 11/26/18 09:01; Admin Dose 10 MG; Start 11/08/18 at 09:00 Escitalopram Oxalate (Lexapro) 20 mg DAILY PO Last administered on 11/26/18 09:02; Admin Dose 20 MG; Start 11/08/18 at 09:00 EZETIMIBE (Zetia) 10 mg DAILY PO Last administered on 11/26/18 09:02; Admin Dose 10 MG; Start 11/08/18 at 09:00 Folic Acid (Folic Acid) 1 mg DAILY PO Last administered on 11/26/18 09:02; Admin Dose 1 MG; Start 11/08/18 at 09:00 Pantoprazole (Protonix Tab) 40 mg DAILY@06 PO Last administered on 11/26/18 06:42; Admin Dose 40 MG; Start 11/08/18 at 06:00 Levothyroxine Sodium (Synthroid) 25 mcg DAILY@0600 PO Last administered on 11/26/18 06:41; Admin Dose 25 MCG; Start 11/08/18 at 06:30 Ondansetron HCl (Zofran Inj) 4 mg Q6H PRN IV NAUSEA AND/OR VOMITING Last administered on 11/23/18 15:12; Admin Dose 4 MG; Start 11/08/18 at 10:30 Lorazepam (Ativan) 0.5 mg Q6H PRN PO ANXIETY Last administered on 11/23/18 15:12; Admin Dose 0.5 MG; Start 11/09/18 at 00:00 Psyllium Hydrophilic Mucilloid (Metamucil) 1 pkt DAILY PO Last administered on 11/26/18 09:01; Admin Dose 1 PKT; Start 11/10/18 at 09:00 Megestrol Acetate (Megace Susp) 400 mg BID PO Last administered on 11/26/18 09:01; Admin Dose 400 MG; Start 11/12/18 at 21:00 Metoprolol Tartrate (Lopressor) 100 mg BID PO Last administered on 11/26/18 09:02; Admin Dose 100 MG; Start 11/20/18 at 21:00 Zolpidem Tartrate (Ambien) 5 mg HS PRN PO INSOMNIA Last administered on 11/23/18 20:34; Admin Dose 5 MG; Start 11/23/18 at 18:00 Pramipexole (Mirapex) 0.25 mg HS PO Last administered on 11/25/18 21:28; Admin Dose 0.25 MG; Start 11/23/18 at 21:00 Bumetanide (Bumex) 1 mg DAILY PO Last administered on 11/26/18 09:01; Admin Dose 1 MG; Start 11/25/18 at 09:00 Potassium Chloride (Klor-Con 20) 20 meq DAILY PO Last administered on 11/25/18 10:24; Admin Dose 20 MEQ; Start 11/25/18 at 09:00; Status HEATHER Cadena Nov 26, 2018 11:34
--- NOTE | 2018-11-26 12:04 | CONS ---
Assessment/Plan Assessment/Plan Hospital Course (Demo Recall) #Coagulopathy -pt is noted to have an elevated PT (26sec) and PTT(35 sec). Today patient;s PTT is within normal limits. PT mixing study corrected. This essentially rules out a factor inhibitor. This makes the most likely cause of her coagulopathy her underlying cirrhosis and Vitamin K deficiency -s/p oral Vitamin K 5mg po x 3 days -INR now 1.2 -continue eliquis at this time for afib #Thrombocytopenia -likely 2/2 cirrhosis -platelets currently greater than 140K #Colitis -GI consulted -continue Levaquin and Flagyl #JACKELIN on CKD -management per nephrology #CHF -pt on bumex #Afib -may continue eliquis as mentioned above #HTN -continue current BP meds #RA -management per rheumatology Thank you for the opportunity to participate in this patients care A total of 40 minutes of face to face time was spent speaking with the patient, of which greater than 50% was spent in counseling and coordination of care and the detailed question and answer session. Consultation Date/Type/Reason Admit Date/Time Nov 07, 2018 at 12:41 Initial Consult Date 11/12/18 Type of Consult hematology Reason for Consultation coagulopathy Requesting Provider: REJI KAUFFMAN MD Date/Time of Note DATE: 11/26/18 TIME: 12:01 24 HR Interval Summary Free Text/Dictation no acute overnight events Exam/Review of Systems Exam Vitals Vital Signs Date Temp Pulse Resp B/P (MAP) Pulse Ox O2 O2 Flow FiO2 Time Delivery Rate 11/26/18 98.2 79 18 129/67 96 11:44 (87) 11/26/18 Nasal 2.0 10:29 Cannula Intake and Output 11/25/18 11/25/18 11/26/18 1515:00 23:00 07:00 IntakeIntake Total 590 ml 250 ml 460 ml OutputOutput Total 100 ml BalanceBalance 590 ml 250 ml 360 ml Constitutional: alert, frail Psych: depression Head: normocephalic Eyes: nl conjunctiva ENMT: nl external ears & nose Neck: supple Respiratory: clear to auscultation Cardiovascular: regular rate and rhythm Gastrointestinal: soft Extremities: edema Results Result Diagram: 11/25/18 0453 11/26/18 0843 Results 24hrs Laboratory Tests Test 11/26/18 08:43 Sodium Level 133 L Potassium Level 5.1 Chloride Level 98 Carbon Dioxide Level 26 Anion Gap 9 Blood Urea Nitrogen 47 H Creatinine 1.87 H Est Glomerular Filtrat Rate mL/min Glucose Level 87 Calcium Level 7.9 L Medications Medication Current Medications Acetaminophen (Tylenol Tab) 650 mg Q6H PRN PO MILD PAIN(1-3)OR ELEVATED TEMP Last administered on 11/12/18 00:29; Admin Dose 650 MG; Start 11/07/18 at 10:00 Loperamide HCl (Imodium Cap) 2 mg QID PRN PO DIARRHEA Last administered on 11/09/18 02:45; Admin Dose 2 MG; Start 11/07/18 at 10:30 Amiodarone HCl (Cordarone) 100 mg DAILY PO Last administered on 11/26/18 09:02; Admin Dose 100 MG; Start 11/08/18 at 09:00 Apixaban (Eliquis) 2.5 mg BID PO Last administered on 11/24/18 08:16; Admin Dose 2.5 MG; Start 11/07/18 at 12:00; Status Hold Cholecalciferol (Vitamin D) 2,000 unit DAILY PO Last administered on 11/26/18 09:01; Admin Dose 2,000 UNIT; Start 11/08/18 at 09:00 Donepezil HCl (Aricept) 10 mg DAILY PO Last administered on 11/26/18 09:01; Admin Dose 10 MG; Start 11/08/18 at 09:00 Escitalopram Oxalate (Lexapro) 20 mg DAILY PO Last administered on 11/26/18 09:02; Admin Dose 20 MG; Start 11/08/18 at 09:00 EZETIMIBE (Zetia) 10 mg DAILY PO Last administered on 11/26/18 09:02; Admin Dose 10 MG; Start 11/08/18 at 09:00 Folic Acid (Folic Acid) 1 mg DAILY PO Last administered on 11/26/18 09:02; Admin Dose 1 MG; Start 11/08/18 at 09:00 Pantoprazole (Protonix Tab) 40 mg DAILY@06 PO Last administered on 11/26/18 06:42; Admin Dose 40 MG; Start 11/08/18 at 06:00 Levothyroxine Sodium (Synthroid) 25 mcg DAILY@0600 PO Last administered on 11/26/18 06:41; Admin Dose 25 MCG; Start 11/08/18 at 06:30 Ondansetron HCl (Zofran Inj) 4 mg Q6H PRN IV NAUSEA AND/OR VOMITING Last administered on 11/23/18 15:12; Admin Dose 4 MG; Start 11/08/18 at 10:30 Lorazepam (Ativan) 0.5 mg Q6H PRN PO ANXIETY Last administered on 11/23/18 15:12; Admin Dose 0.5 MG; Start 11/09/18 at 00:00 Psyllium Hydrophilic Mucilloid (Metamucil) 1 pkt DAILY PO Last administered on 11/26/18 09:01; Admin Dose 1 PKT; Start 11/10/18 at 09:00 Megestrol Acetate (Megace Susp) 400 mg BID PO Last administered on 11/26/18 09:01; Admin Dose 400 MG; Start 11/12/18 at 21:00 Metoprolol Tartrate (Lopressor) 100 mg BID PO Last administered on 11/26/18 09:02; Admin Dose 100 MG; Start 11/20/18 at 21:00 Zolpidem Tartrate (Ambien) 5 mg HS PRN PO INSOMNIA Last administered on 11/23/18 20:34; Admin Dose 5 MG; Start 11/23/18 at 18:00 Pramipexole (Mirapex) 0.25 mg HS PO Last administered on 11/25/18 21:28; Admin Dose 0.25 MG; Start 11/23/18 at 21:00 Bumetanide (Bumex) 1 mg DAILY PO Last administered on 11/26/18 09:01; Admin Dose 1 MG; Start 11/25/18 at 09:00 Potassium Chloride (Klor-Con 20) 20 meq DAILY PO Last administered on 11/25/18 10:24; Admin Dose 20 MEQ; Start 11/25/18 at 09:00; Status CRISTIAN Hayes M.D. Nov 26, 2018 12:04
--- NOTE | 2018-11-26 16:12 | PN ---
Date/Time of Note Date/Time of Note DATE: 11/26/18 TIME: 16:03 Assessment/Plan VTE Prophylaxis Risk score (from Nsg)>0 risk: 8 SCD applied (from Ns): Yes Pharmacological prophylaxis: NA/contraindicated Pharm contraindication: anticoag not tolerated (epixtasis ) Lines/Catheters [facility] Assessment/Plan Hospital Course Patient still complains of generalized weakness however able to work with physical therapy, denies any chest pain patient continues on Bumex with close renal function monitoring. Pending ARU eval. Plan of care discussed with patient younger daughter at the bedside. Assessment/Plan -Left foot cellulitis, improving. s/p Ancef, on Keflex. -Acute decompensated systolic and diastolic congestive heart failure, continue diuretics per nephrology. -Nonoliguric acute kidney injury on top of chronic kidney disease stage III. Continue Bumex. -Coagulopathy most likely to liver cirrhosis and vitamin K deficiency, status post vitamin K, improved. Dr. Ramsay is following in hematology consultation. -Atrial fibrillation with initially rapid ventricular rates, improved, continue Eliquis and metoprolol. Dr Mayers is following in cardiology consultation. -Nausea vomiting and diarrhea for 2 days, resolved. Dr. Merchant is following in gastroenterology consultation. -Colitis per CT scan. S/p Levaquin and Flagyl. 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 Patient unable to undergo MRI due to pacemaker. Dr. Duque is following and podiatry consultation. -Hypertension, continue metoprolol Norvasc and Cozaar -PPM -Hypothyroidism, continue levothyroxine. -Rheumatoid arthritis, Dr Grant is following in rheumatology consultation. -Restless leg syndrome, continue Mirapex. Further recommendations based on clinical course. Plan of care discussed with Dr. Rayo. Result Diagram: 11/25/18 0453 11/26/18 0843 Results 24hrs Laboratory Tests Test 11/26/18 08:43 Sodium Level 133 L Potassium Level 5.1 Chloride Level 98 Carbon Dioxide Level 26 Anion Gap 9 Blood Urea Nitrogen 47 H Creatinine 1.87 H Est Glomerular Filtrat Rate mL/min Glucose Level 87 Calcium Level 7.9 L Exam/Review of Systems Exam Vitals Vital Signs Date Temp Pulse Resp B/P (MAP) Pulse Ox O2 O2 Flow FiO2 Time Delivery Rate 11/26/18 97.8 83 18 123/60 93 15:28 (81) 11/26/18 Nasal 2.0 10:29 Cannula Intake and Output 11/25/18 11/25/18 11/26/18 1515:00 23:00 07:00 IntakeIntake Total 590 ml 250 ml 460 ml OutputOutput Total 100 ml BalanceBalance 590 ml 250 ml 360 ml Exam Constitutional: alert, oriented Respiratory: clear to auscultation Cardiovascular: irregular rhythm, other (L chest PPM) Gastrointestinal: soft, non-tender Musculoskeletal: nl extremities to inspection Extremities: normal pulses Neurological: nl mental status Results Results 24hrs Laboratory Tests Test 11/26/18 08:43 Sodium Level 133 L Potassium Level 5.1 Chloride Level 98 Carbon Dioxide Level 26 Anion Gap 9 Blood Urea Nitrogen 47 H Creatinine 1.87 H Est Glomerular Filtrat Rate mL/min Glucose Level 87 Calcium Level 7.9 L Medications Medication Current Medications Acetaminophen (Tylenol Tab) 650 mg Q6H PRN PO MILD PAIN(1-3)OR ELEVATED TEMP Last administered on 11/12/18at 00:29; Admin Dose 650 MG; Start 11/07/18 at 10:00 Loperamide HCl (Imodium Cap) 2 mg QID PRN PO DIARRHEA Last administered on 11/09/18at 02:45; Admin Dose 2 MG; Start 11/07/18 at 10:30 Amiodarone HCl (Cordarone) 100 mg DAILY PO Last administered on 11/26/18 09:02; Admin Dose 100 MG; Start 11/08/18 at 09:00 Apixaban (Eliquis) 2.5 mg BID PO Last administered on 11/24/18 08:16; Admin Dose 2.5 MG; Start 11/07/18 at 12:00; Status Hold Cholecalciferol (Vitamin D) 2,000 unit DAILY PO Last administered on 11/26/18 09:01; Admin Dose 2,000 UNIT; Start 11/08/18 at 09:00 Donepezil HCl (Aricept) 10 mg DAILY PO Last administered on 11/26/18 09:01; Admin Dose 10 MG; Start 11/08/18 at 09:00 Escitalopram Oxalate (Lexapro) 20 mg DAILY PO Last administered on 11/26/18 09:02; Admin Dose 20 MG; Start 11/08/18 at 09:00 EZETIMIBE (Zetia) 10 mg DAILY PO Last administered on 11/26/18 09:02; Admin Dose 10 MG; Start 11/08/18 at 09:00 Folic Acid (Folic Acid) 1 mg DAILY PO Last administered on 11/26/18 09:02; Admin Dose 1 MG; Start 11/08/18 at 09:00 Pantoprazole (Protonix Tab) 40 mg DAILY@06 PO Last administered on 11/26/18 06:42; Admin Dose 40 MG; Start 11/08/18 at 06:00 Levothyroxine Sodium (Synthroid) 25 mcg DAILY@0600 PO Last administered on 11/26/18 06:41; Admin Dose 25 MCG; Start 11/08/18 at 06:30 Ondansetron HCl (Zofran Inj) 4 mg Q6H PRN IV NAUSEA AND/OR VOMITING Last administered on 11/23/18 15:12; Admin Dose 4 MG; Start 11/08/18 at 10:30 Lorazepam (Ativan) 0.5 mg Q6H PRN PO ANXIETY Last administered on 11/23/18 15:12; Admin Dose 0.5 MG; Start 11/09/18 at 00:00 Psyllium Hydrophilic Mucilloid (Metamucil) 1 pkt DAILY PO Last administered on 11/26/18 09:01; Admin Dose 1 PKT; Start 11/10/18 at 09:00 Megestrol Acetate (Megace Susp) 400 mg BID PO Last administered on 11/26/18 09:01; Admin Dose 400 MG; Start 11/12/18 at 21:00 Metoprolol Tartrate (Lopressor) 100 mg BID PO Last administered on 11/26/18 09:02; Admin Dose 100 MG; Start 11/20/18 at 21:00 Zolpidem Tartrate (Ambien) 5 mg HS PRN PO INSOMNIA Last administered on 11/23/18 20:34; Admin Dose 5 MG; Start 11/23/18 at 18:00 Pramipexole (Mirapex) 0.25 mg HS PO Last administered on 11/25/18 21:28; Admin Dose 0.25 MG; Start 11/23/18 at 21:00 Bumetanide (Bumex) 1 mg DAILY PO Last administered on 11/26/18at 09:01; Admin Dose 1 MG; Start 11/25/18 at 09:00 Potassium Chloride (Klor-Con 20) 20 meq DAILY PO Last administered on 11/25/18at 10:24; Admin Dose 20 MEQ; Start 11/25/18 at 09:00; Status Hold OSCAR GAYTAN Nov 26, 2018 16:12
[2018-11-26] MEDS: DEXTROSE 5%-0.45% NACL 1,000 ML IV SCH (18:00)
[2018-11-26] MEDS: PRAMIPEXOLE 0.25 MG TAB PO SCH (20:34)
--- NOTE | 2018-11-26 22:32 | CONS ---
Assessment/Plan Cardiology NYHA: III Heart Failure Type: Acute on Chronic Heart Failure Type: Both Assessment/Plan Hospital Course (Demo Recall) Atrial fibrillation with initially rapid ventricular rates, improved Nausea, vomiting-resolved Acute decompensated systolic and diastolic congestive heart failure Acute kidney injury Mitral and tricuspid valve regurgitation Possible colitis Hypertension Dyslipidemia History of pacemaker Heart rate trend overall improving, continue beta-carine and titrate as needed Patient appears near euvolemic, diuretics and fluids titrated as per nephrology Continue anticoagulation if no contraindication Consultation Date/Type/Reason Admit Date/Time Nov 07, 2018 at 12:41 Initial Consult Date Type of Consult Cardiology Requesting Provider: REJI KAUFFMAN MD Date/Time of Note DATE: 11/26/18 TIME: 22:30 24 HR Interval Summary Free Text/Dictation no sob,cp,palp Exam/Review of Systems Vital Signs Vitals Vital Signs Date Temp Pulse Resp B/P (MAP) Pulse Ox O2 O2 Flow FiO2 Time Delivery Rate 11/26/18 86 20:00 11/26/18 Nasal 2.0 20:00 Cannula 11/26/18 97.4 16 123/59 96 19:45 (80) Intake and Output 11/25/18 11/25/18 11/26/18 1515:00 23:00 07:00 IntakeIntake Total 590 ml 250 ml 460 ml OutputOutput Total 100 ml BalanceBalance 590 ml 250 ml 360 ml Exam Constitutional: alert, oriented, well developed Respiratory: other (course bs, no wheeze) Cardiovascular: irregular rhythm (s1s2) Gastrointestinal: soft, non-tender, bowel sounds Extremities: edema Labs Result Diagram: 11/25/18 0453 11/26/18 0843 Results 24hrs Laboratory Tests Test 11/26/18 08:43 Sodium Level 133 L Potassium Level 5.1 Chloride Level 98 Carbon Dioxide Level 26 Anion Gap 9 Blood Urea Nitrogen 47 H Creatinine 1.87 H Est Glomerular Filtrat Rate mL/min Glucose Level 87 Calcium Level 7.9 L Medications Medications Current Medications Acetaminophen (Tylenol Tab) 650 mg Q6H PRN PO MILD PAIN(1-3)OR ELEVATED TEMP Last administered on 11/12/18at 00:29; Admin Dose 650 MG; Start 11/07/18 at 10:00 Loperamide HCl (Imodium Cap) 2 mg QID PRN PO DIARRHEA Last administered on 11/09/18at 02:45; Admin Dose 2 MG; Start 11/07/18 at 10:30 Amiodarone HCl (Cordarone) 100 mg DAILY PO Last administered on 11/26/18 09:02; Admin Dose 100 MG; Start 11/08/18 at 09:00 Apixaban (Eliquis) 2.5 mg BID PO Last administered on 11/24/18 08:16; Admin Dose 2.5 MG; Start 11/07/18 at 12:00; Status Hold Cholecalciferol (Vitamin D) 2,000 unit DAILY PO Last administered on 11/26/18 09:01; Admin Dose 2,000 UNIT; Start 11/08/18 at 09:00 Donepezil HCl (Aricept) 10 mg DAILY PO Last administered on 11/26/18 09:01; Admin Dose 10 MG; Start 11/08/18 at 09:00 Escitalopram Oxalate (Lexapro) 20 mg DAILY PO Last administered on 11/26/18 09:02; Admin Dose 20 MG; Start 11/08/18 at 09:00 EZETIMIBE (Zetia) 10 mg DAILY PO Last administered on 11/26/18 09:02; Admin Dose 10 MG; Start 11/08/18 at 09:00 Folic Acid (Folic Acid) 1 mg DAILY PO Last administered on 11/26/18 09:02; Admin Dose 1 MG; Start 11/08/18 at 09:00 Pantoprazole (Protonix Tab) 40 mg DAILY@06 PO Last administered on 11/26/18 06:42; Admin Dose 40 MG; Start 11/08/18 at 06:00 Levothyroxine Sodium (Synthroid) 25 mcg DAILY@0600 PO Last administered on 11/26/18 06:41; Admin Dose 25 MCG; Start 11/08/18 at 06:30 Ondansetron HCl (Zofran Inj) 4 mg Q6H PRN IV NAUSEA AND/OR VOMITING Last administered on 11/23/18 15:12; Admin Dose 4 MG; Start 11/08/18 at 10:30 Lorazepam (Ativan) 0.5 mg Q6H PRN PO ANXIETY Last administered on 11/23/18 15:12; Admin Dose 0.5 MG; Start 11/09/18 at 00:00 Psyllium Hydrophilic Mucilloid (Metamucil) 1 pkt DAILY PO Last administered on 11/26/18 09:01; Admin Dose 1 PKT; Start 11/10/18 at 09:00 Megestrol Acetate (Megace Susp) 400 mg BID PO Last administered on 11/26/18 20:31; Admin Dose 400 MG; Start 11/12/18 at 21:00 Metoprolol Tartrate (Lopressor) 100 mg BID PO Last administered on 11/26/18 20:33; Admin Dose 100 MG; Start 11/20/18 at 21:00 Zolpidem Tartrate (Ambien) 5 mg HS PRN PO INSOMNIA Last administered on 11/23/18 20:34; Admin Dose 5 MG; Start 11/23/18 at 18:00 Pramipexole (Mirapex) 0.25 mg HS PO Last administered on 11/26/18 20:34; Admin Dose 0.25 MG; Start 11/23/18 at 21:00 Bumetanide (Bumex) 1 mg DAILY PO Last administered on 11/26/18 09:01; Admin Dose 1 MG; Start 11/25/18 at 09:00; Status Hold Potassium Chloride (Klor-Con 20) 20 meq DAILY PO Last administered on 11/25/18 10:24; Admin Dose 20 MEQ; Start 11/25/18 at 09:00; Status Hold Dextrose/Sodium Chloride 1,000 ml @ 50 mls/hr Q20H IV Last administered on 11/26/18 18:00; Admin Dose 50 MLS/HR; Start 11/26/18 at 17:30 Perico Mayers DO Nov 26, 2018 22:32
[2018-11-27] VITALS (10 sets, daily range): BP systolic 122–137; BP diastolic 61–76; PULSE 80–91; RESP 17–20
[2018-11-27] MEDS: PANTOPRAZOLE (EC) 40 MG TAB PO SCH (05:45)
[2018-11-27] MEDS: LEVOTHYROXINE 25 MCG TAB PO SCH (05:45)
[2018-11-27] MEDS: MEGESTROL (40 MG/ML) 10ML CUP PO SCH ×2 (09:16→20:28)
[2018-11-27] MEDS: PSYLLIUM 28% PACKET PO SCH (09:16)
[2018-11-27] MEDS: FOLIC ACID 1 MG TAB PO SCH (09:17)
[2018-11-27] MEDS: ESCITALOPRAM 10 MG TAB PO SCH (09:17)
[2018-11-27] MEDS: EZETIMIBE 10 MG TAB PO SCH (09:17)
[2018-11-27] MEDS: METOPROLOL 100 MG TAB PO SCH ×2 (09:17→20:29)
[2018-11-27] MEDS: CHOLECALCIFEROL 2,000 UNIT CAP PO SCH (09:17)
[2018-11-27] MEDS: DONEPEZIL 10 MG TAB PO SCH (09:17)
[2018-11-27] MEDS: AMIODARONE 200 MG TAB PO SCH (09:19)
--- NOTE | 2018-11-27 13:14 | CONS ---
Assessment/Plan Assessment/Plan Hospital Course (Demo Recall) 83 yo female with N/V and diarrhea 1. Nausea, vomiting and diarrhea which have subsided now, most probably related to viral infection or of infectious etiology -resolved. 2. Atrial fibrillation for which she is on Eliquis. 3. Status post pacemaker insertion. 4. Dyslipidemia. 5. Hypothyroidism. 6. Hypertension. 7. Fatigue -likely due to depression -lexapro 8. Pedal edema pitting all the way up to knee, has reduced her drastically responded well to diuretics. 9. Coagulopathy may be due to cirrhosis of liver -improved -heme following 10. Abnormal LFT -patient CAT scan shows nodular liver which may be due to cirrhosis and also steatosis is playing a role -Hep panel unremarkable -LFTs wnl now 11. Thrombocytopenia -followed by Dr Ramsay 12. Liver cirrhosis noted in CT scan -HEARD? -hep panel unremarkable. -hepatic autoimmune panel unremarkable Plan Continue present care Pt examined and plan of care discussed with Dr Merchant Consultation Date/Type/Reason Admit Date/Time Nov 07, 2018 at 12:41 Initial Consult Date 11/12/18 Requesting Provider: REJI KAUFFMAN MD Date/Time of Note DATE: 11/27/18 TIME: 13:13 24 HR Interval Summary Free Text/Dictation no acute changes. Exam/Review of Systems Exam Vitals Vital Signs Date Temp Pulse Resp B/P (MAP) Pulse Ox O2 O2 Flow FiO2 Time Delivery Rate 11/27/18 89 12:11 11/27/18 97.8 17 126/65 95 11:31 (85) 11/27/18 Nasal 2.0 08:45 Cannula Intake and Output 11/26/18 11/26/18 11/27/18 1515:00 23:00 07:00 IntakeIntake Total 800 ml 200 ml OutputOutput Total 675 ml BalanceBalance 125 ml 200 ml Constitutional: alert, oriented Psych: no complaints Eyes: nl sclera, PERRL Respiratory: normal air movement Gastrointestinal: soft Neurological: nl mental status Results Result Diagram: 11/27/18 0539 11/27/18 0539 Results 24hrs Laboratory Tests Test 11/27/18 05:39 White Blood Count 6.2 Red Blood Count 3.78 L Hemoglobin 12.5 Hematocrit 37.8 Mean Corpuscular Volume 100.0 Mean Corpuscular Hemoglobin 33.1 H Mean Corpuscular Hemoglobin Concent 33.1 Red Cell Distribution Width 19.5 H Platelet Count 168 Mean Platelet Volume 11.2 H Immature Granulocytes % 0.200 Neutrophils % 41.1 Lymphocytes % 48.5 Monocytes % 9.2 Eosinophils % 0.5 Basophils % 0.5 Nucleated Red Blood Cells % 0.0 Immature Granulocytes # 0.010 Neutrophils # 2.5 Lymphocytes # 3.0 H Monocytes # 0.6 Eosinophils # 0.0 Basophils # 0.0 Nucleated Red Blood Cells # 0.0 Sodium Level 135 Potassium Level 4.7 Chloride Level 96 L Carbon Dioxide Level 26 Anion Gap 13 Blood Urea Nitrogen 46 H Creatinine 2.14 H Est Glomerular Filtrat Rate mL/min Glucose Level 88 Calcium Level 8.1 L Phosphorus Level 4.9 Magnesium Level 2.1 Medications Medication Current Medications Acetaminophen (Tylenol Tab) 650 mg Q6H PRN PO MILD PAIN(1-3)OR ELEVATED TEMP Last administered on 11/12/18 00:29; Admin Dose 650 MG; Start 11/07/18 at 10:00 Loperamide HCl (Imodium Cap) 2 mg QID PRN PO DIARRHEA Last administered on 11/09/18 02:45; Admin Dose 2 MG; Start 11/07/18 at 10:30 Amiodarone HCl (Cordarone) 100 mg DAILY PO Last administered on 11/27/18 09:19; Admin Dose 100 MG; Start 11/08/18 at 09:00 Apixaban (Eliquis) 2.5 mg BID PO Last administered on 11/24/18 08:16; Admin Dose 2.5 MG; Start 11/07/18 at 12:00; Status Hold Cholecalciferol (Vitamin D) 2,000 unit DAILY PO Last administered on 11/27/18 09:17; Admin Dose 2,000 UNIT; Start 11/08/18 at 09:00 Donepezil HCl (Aricept) 10 mg DAILY PO Last administered on 11/27/18 09:17; Admin Dose 10 MG; Start 11/08/18 at 09:00 Escitalopram Oxalate (Lexapro) 20 mg DAILY PO Last administered on 11/27/18 09:17; Admin Dose 20 MG; Start 11/08/18 at 09:00 EZETIMIBE (Zetia) 10 mg DAILY PO Last administered on 11/27/18 09:17; Admin Dose 10 MG; Start 11/08/18 at 09:00 Folic Acid (Folic Acid) 1 mg DAILY PO Last administered on 11/27/18 09:17; Admin Dose 1 MG; Start 11/08/18 at 09:00 Pantoprazole (Protonix Tab) 40 mg DAILY@06 PO Last administered on 11/27/18 05:45; Admin Dose 40 MG; Start 11/08/18 at 06:00 Levothyroxine Sodium (Synthroid) 25 mcg DAILY@0600 PO Last administered on 11/27/18 05:45; Admin Dose 25 MCG; Start 11/08/18 at 06:30 Ondansetron HCl (Zofran Inj) 4 mg Q6H PRN IV NAUSEA AND/OR VOMITING Last administered on 11/23/18 15:12; Admin Dose 4 MG; Start 11/08/18 at 10:30 Lorazepam (Ativan) 0.5 mg Q6H PRN PO ANXIETY Last administered on 11/23/18 15:12; Admin Dose 0.5 MG; Start 11/09/18 at 00:00 Psyllium Hydrophilic Mucilloid (Metamucil) 1 pkt DAILY PO Last administered on 11/27/18 09:16; Admin Dose 1 PKT; Start 11/10/18 at 09:00 Megestrol Acetate (Megace Susp) 400 mg BID PO Last administered on 11/27/18 09:16; Admin Dose 400 MG; Start 11/12/18 at 21:00 Metoprolol Tartrate (Lopressor) 100 mg BID PO Last administered on 11/27/18 09:17; Admin Dose 100 MG; Start 11/20/18 at 21:00 Zolpidem Tartrate (Ambien) 5 mg HS PRN PO INSOMNIA Last administered on 11/23/18 20:34; Admin Dose 5 MG; Start 11/23/18 at 18:00 Pramipexole (Mirapex) 0.25 mg HS PO Last administered on 11/26/18 20:34; Admin Dose 0.25 MG; Start 11/23/18 at 21:00 Bumetanide (Bumex) 1 mg DAILY PO Last administered on 11/26/18 09:01; Admin Dose 1 MG; Start 11/25/18 at 09:00; Status Hold Potassium Chloride (Klor-Con 20) 20 meq DAILY PO Last administered on 11/25/18at 10:24; Admin Dose 20 MEQ; Start 11/25/18 at 09:00; Status Hold Dextrose/Sodium Chloride 1,000 ml @ 50 mls/hr Q20H IV Last administered on 11/26/18at 18:00; Admin Dose 50 MLS/HR; Start 11/26/18 at 17:30 HEATHER MEDRANO Nov 27, 2018 13:14
[2018-11-27] MEDS: DEXTROSE 5%-0.45% NACL 1,000 ML IV SCH (13:30)
--- NOTE | 2018-11-27 14:10 | CONS ---
Assessment/Plan Assessment/Plan Assessment/Plan (Daily) 1. Nonoliguric acute kidney injury on top of chronic kidney disease stage III. Etiology of acute kidney injury is secondary to hemodynamics. Renal function has declined. -BUN/Cr worsened to 46/2.14, BP stable, pt denies SOB, still has LE edema - on IVF D51/2NS at 50 ml/hr, will give IV albumin 25% 100ml Q 8 hr x 3 dose then stop - expecting Cr to improve, will decide about resumption of diuret ic depending on her labs in AM 2. Acute systolic, diastolic heart failure. The patient appears compensated. Continue to monitor renal function closely.- Bumex has been on hold( 1mg po daily ) 3. Hypokalemia, improved. 4. Hypernatremia, improved. 5. Mineral bone disorder. Monitor calcium and phosphorus levels. 6. Atrial fibrillation. Continue medical management., on Eliquis for anticoagulation 7. Possible colitis. The patient is completing antibiotic course. 8. Rheumatoid arthritis. Continue to monitor. Consultation Date/Type/Reason Admit Date/Time Nov 07, 2018 at 12:41 Initial Consult Date 11/09/18 Type of Consult NEPHROLOGY Requesting Provider: REJI KAUFFMAN MD Date/Time of Note DATE: 11/27/18 TIME: 14:10 24 HR Interval Summary Free Text/Dictation BUN/Cr worsened to 46/2.14, BP stable, pt denies SOB, still has LE edema Exam/Review of Systems Exam Vitals Vital Signs Date Temp Pulse Resp B/P (MAP) Pulse Ox O2 O2 Flow FiO2 Time Delivery Rate 11/27/18 89 12:11 11/27/18 97.8 17 126/65 95 11:31 (85) 11/27/18 Nasal 2.0 08:45 Cannula Intake and Output 11/26/18 11/26/18 11/27/18 1515:00 23:00 07:00 IntakeIntake Total 800 ml 200 ml OutputOutput Total 675 ml BalanceBalance 125 ml 200 ml Exam HEENT: Head is normocephalic. LUNGS: Show diminished breath sounds at the base. ABDOMEN: Soft, nontender to palpation without rebound or guarding. EXTREMITIES: Negative for clubbing, cyanosis. Trace edema. DERMATOLOGIC: No rashes. MUSCULOSKELETAL: No joint effusion. NEUROLOGIC: No change in exam. Results Result Diagram: 11/27/18 0539 11/27/18 0539 Results 24hrs Laboratory Tests Test 11/27/18 05:39 White Blood Count 6.2 Red Blood Count 3.78 L Hemoglobin 12.5 Hematocrit 37.8 Mean Corpuscular Volume 100.0 Mean Corpuscular Hemoglobin 33.1 H Mean Corpuscular Hemoglobin Concent 33.1 Red Cell Distribution Width 19.5 H Platelet Count 168 Mean Platelet Volume 11.2 H Immature Granulocytes % 0.200 Neutrophils % 41.1 Lymphocytes % 48.5 Monocytes % 9.2 Eosinophils % 0.5 Basophils % 0.5 Nucleated Red Blood Cells % 0.0 Immature Granulocytes # 0.010 Neutrophils # 2.5 Lymphocytes # 3.0 H Monocytes # 0.6 Eosinophils # 0.0 Basophils # 0.0 Nucleated Red Blood Cells # 0.0 Sodium Level 135 Potassium Level 4.7 Chloride Level 96 L Carbon Dioxide Level 26 Anion Gap 13 Blood Urea Nitrogen 46 H Creatinine 2.14 H Est Glomerular Filtrat Rate mL/min Glucose Level 88 Calcium Level 8.1 L Phosphorus Level 4.9 Magnesium Level 2.1 Medications Medication Current Medications Acetaminophen (Tylenol Tab) 650 mg Q6H PRN PO MILD PAIN(1-3)OR ELEVATED TEMP Last administered on 11/12/18at 00:29; Admin Dose 650 MG; Start 11/07/18 at 10:00 Loperamide HCl (Imodium Cap) 2 mg QID PRN PO DIARRHEA Last administered on 11/09/18at 02:45; Admin Dose 2 MG; Start 11/07/18 at 10:30 Amiodarone HCl (Cordarone) 100 mg DAILY PO Last administered on 11/27/18at 09:19; Admin Dose 100 MG; Start 11/08/18 at 09:00 Apixaban (Eliquis) 2.5 mg BID PO Last administered on 11/24/18 08:16; Admin Dose 2.5 MG; Start 11/07/18 at 12:00; Status Hold Cholecalciferol (Vitamin D) 2,000 unit DAILY PO Last administered on 11/27/18 09:17; Admin Dose 2,000 UNIT; Start 11/08/18 at 09:00 Donepezil HCl (Aricept) 10 mg DAILY PO Last administered on 11/27/18 09:17; Admin Dose 10 MG; Start 11/08/18 at 09:00 Escitalopram Oxalate (Lexapro) 20 mg DAILY PO Last administered on 11/27/18 09:17; Admin Dose 20 MG; Start 11/08/18 at 09:00 EZETIMIBE (Zetia) 10 mg DAILY PO Last administered on 11/27/18 09:17; Admin Dose 10 MG; Start 11/08/18 at 09:00 Folic Acid (Folic Acid) 1 mg DAILY PO Last administered on 11/27/18 09:17; Admin Dose 1 MG; Start 11/08/18 at 09:00 Pantoprazole (Protonix Tab) 40 mg DAILY@06 PO Last administered on 11/27/18 05:45; Admin Dose 40 MG; Start 11/08/18 at 06:00 Levothyroxine Sodium (Synthroid) 25 mcg DAILY@0600 PO Last administered on 11/27/18 05:45; Admin Dose 25 MCG; Start 11/08/18 at 06:30 Ondansetron HCl (Zofran Inj) 4 mg Q6H PRN IV NAUSEA AND/OR VOMITING Last administered on 11/23/18 15:12; Admin Dose 4 MG; Start 11/08/18 at 10:30 Lorazepam (Ativan) 0.5 mg Q6H PRN PO ANXIETY Last administered on 11/23/18 15:12; Admin Dose 0.5 MG; Start 11/09/18 at 00:00 Psyllium Hydrophilic Mucilloid (Metamucil) 1 pkt DAILY PO Last administered on 11/27/18 09:16; Admin Dose 1 PKT; Start 11/10/18 at 09:00 Megestrol Acetate (Megace Susp) 400 mg BID PO Last administered on 11/27/18 09:16; Admin Dose 400 MG; Start 11/12/18 at 21:00 Metoprolol Tartrate (Lopressor) 100 mg BID PO Last administered on 11/27/18 09:17; Admin Dose 100 MG; Start 11/20/18 at 21:00 Zolpidem Tartrate (Ambien) 5 mg HS PRN PO INSOMNIA Last administered on 11/23/18 20:34; Admin Dose 5 MG; Start 11/23/18 at 18:00 Pramipexole (Mirapex) 0.25 mg HS PO Last administered on 11/26/18at 20:34; Admin Dose 0.25 MG; Start 11/23/18 at 21:00 Bumetanide (Bumex) 1 mg DAILY PO Last administered on 11/26/18 09:01; Admin Dose 1 MG; Start 11/25/18 at 09:00; Status Hold Potassium Chloride (Klor-Con 20) 20 meq DAILY PO Last administered on 11/25/18at 10:24; Admin Dose 20 MEQ; Start 11/25/18 at 09:00; Status Hold Dextrose/Sodium Chloride 1,000 ml @ 50 mls/hr Q20H IV Last administered on 11/26/18 18:00; Admin Dose 50 MLS/HR; Start 11/26/18 at 17:30 BEATRIZ PLEITEZ MD Nov 27, 2018 14:10
--- NOTE | 2018-11-27 15:22 | PN ---
Date/Time of Note Date/Time of Note DATE: 11/27/18 TIME: 15:12 Assessment/Plan VTE Prophylaxis Risk score (from Nsg)>0 risk: 5 SCD applied (from Nsg): Yes Pharmacological prophylaxis: apixaban Lines/Catheters IV Catheter Type (from Nrsg): Mid Line Urinary Cath still in place: No Assessment/Plan Hospital Course Bumex is held due to increase in creatinine patient is currently giving IV fluids and albumin by our nephrology colleague, patient continues to be in atrial fibrillation at controlled rate. Continue current care monitor BUN and creatinine. Continue physical therapy. Case management to arrange home health services prior to discharge. Patient did not qualify for [facility] you, discussed with patient and his daughter at the bedside. Discussed with case management. Eliquis is currently on hold due to nosebleed. No bleeding reported today per RN and family, will resume Eliquis. Assessment/Plan -Left foot cellulitis,resolved. s/p Ancef. -Acute decompensated systolic and diastolic congestive heart failure. -Nonoliguric acute kidney injury on top of chronic kidney disease stage III. Dr. Juárez is following in nephrology consultation. -Coagulopathy most likely to liver cirrhosis and vitamin K deficiency, status post vitamin K, improved. Dr. Ramsay is following in hematology consultation. -Atrial fibrillation with initially rapid ventricular rates, improved, continue metoprolol. Dr Mayers is following in cardiology consultation. -Nausea vomiting and diarrhea for 2 days, resolved. Dr. Merchant is following in gastroenterology consultation. -Colitis per CT scan. S/p Levaquin and Flagyl. 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 Patient unable to undergo MRI due to pacemaker. Dr. Duque is following and podiatry consultation. -Hypertension, continue metoprolol Norvasc and Cozaar -PPM -Hypothyroidism, continue levothyroxine. -Rheumatoid arthritis, Dr Grant is following in rheumatology consultation. Further recommendations based on clinical course. Plan of care discussed with Dr. Rayo. Result Diagram: 11/27/18 0539 11/27/18 0539 Results 24hrs Laboratory Tests Test 11/27/18 05:39 White Blood Count 6.2 Red Blood Count 3.78 L Hemoglobin 12.5 Hematocrit 37.8 Mean Corpuscular Volume 100.0 Mean Corpuscular Hemoglobin 33.1 H Mean Corpuscular Hemoglobin Concent 33.1 Red Cell Distribution Width 19.5 H Platelet Count 168 Mean Platelet Volume 11.2 H Immature Granulocytes % 0.200 Neutrophils % 41.1 Lymphocytes % 48.5 Monocytes % 9.2 Eosinophils % 0.5 Basophils % 0.5 Nucleated Red Blood Cells % 0.0 Immature Granulocytes # 0.010 Neutrophils # 2.5 Lymphocytes # 3.0 H Monocytes # 0.6 Eosinophils # 0.0 Basophils # 0.0 Nucleated Red Blood Cells # 0.0 Sodium Level 135 Potassium Level 4.7 Chloride Level 96 L Carbon Dioxide Level 26 Anion Gap 13 Blood Urea Nitrogen 46 H Creatinine 2.14 H Est Glomerular Filtrat Rate mL/min Glucose Level 88 Calcium Level 8.1 L Phosphorus Level 4.9 Magnesium Level 2.1 Exam/Review of Systems Exam Vitals Vital Signs Date Temp Pulse Resp B/P (MAP) Pulse Ox O2 O2 Flow FiO2 Time Delivery Rate 11/27/18 89 12:11 11/27/18 97.8 17 126/65 95 11:31 (85) 11/27/18 Nasal 2.0 08:45 Cannula Intake and Output 11/26/18 11/26/18 11/27/18 1515:00 23:00 07:00 IntakeIntake Total 800 ml 200 ml OutputOutput Total 675 ml BalanceBalance 125 ml 200 ml Exam Constitutional: alert, oriented Respiratory: clear to auscultation Cardiovascular: irregular rhythm, other (L chest PPM) Gastrointestinal: soft, non-tender Musculoskeletal: nl extremities to inspection Extremities: normal pulses Neurological: nl mental status Results Results 24hrs Laboratory Tests Test 11/27/18 05:39 White Blood Count 6.2 Red Blood Count 3.78 L Hemoglobin 12.5 Hematocrit 37.8 Mean Corpuscular Volume 100.0 Mean Corpuscular Hemoglobin 33.1 H Mean Corpuscular Hemoglobin Concent 33.1 Red Cell Distribution Width 19.5 H Platelet Count 168 Mean Platelet Volume 11.2 H Immature Granulocytes % 0.200 Neutrophils % 41.1 Lymphocytes % 48.5 Monocytes % 9.2 Eosinophils % 0.5 Basophils % 0.5 Nucleated Red Blood Cells % 0.0 Immature Granulocytes # 0.010 Neutrophils # 2.5 Lymphocytes # 3.0 H Monocytes # 0.6 Eosinophils # 0.0 Basophils # 0.0 Nucleated Red Blood Cells # 0.0 Sodium Level 135 Potassium Level 4.7 Chloride Level 96 L Carbon Dioxide Level 26 Anion Gap 13 Blood Urea Nitrogen 46 H Creatinine 2.14 H Est Glomerular Filtrat Rate mL/min Glucose Level 88 Calcium Level 8.1 L Phosphorus Level 4.9 Magnesium Level 2.1 Medications Medication Current Medications Acetaminophen (Tylenol Tab) 650 mg Q6H PRN PO MILD PAIN(1-3)OR ELEVATED TEMP Last administered on 11/12/18 00:29; Admin Dose 650 MG; Start 11/07/18 at 10:00 Loperamide HCl (Imodium Cap) 2 mg QID PRN PO DIARRHEA Last administered on 11/09/18 02:45; Admin Dose 2 MG; Start 11/07/18 at 10:30 Amiodarone HCl (Cordarone) 100 mg DAILY PO Last administered on 11/27/18 09:19; Admin Dose 100 MG; Start 11/08/18 at 09:00 Apixaban (Eliquis) 2.5 mg BID PO Last administered on 11/24/18 08:16; Admin Dose 2.5 MG; Start 11/07/18 at 12:00; Status Hold Cholecalciferol (Vitamin D) 2,000 unit DAILY PO Last administered on 11/27/18 09:17; Admin Dose 2,000 UNIT; Start 11/08/18 at 09:00 Donepezil HCl (Aricept) 10 mg DAILY PO Last administered on 11/27/18 09:17; Admin Dose 10 MG; Start 11/08/18 at 09:00 Escitalopram Oxalate (Lexapro) 20 mg DAILY PO Last administered on 11/27/18 09:17; Admin Dose 20 MG; Start 11/08/18 at 09:00 EZETIMIBE (Zetia) 10 mg DAILY PO Last administered on 11/27/18 09:17; Admin Dose 10 MG; Start 11/08/18 at 09:00 Folic Acid (Folic Acid) 1 mg DAILY PO Last administered on 11/27/18 09:17; Admin Dose 1 MG; Start 11/08/18 at 09:00 Pantoprazole (Protonix Tab) 40 mg DAILY@06 PO Last administered on 11/27/18 05:45; Admin Dose 40 MG; Start 11/08/18 at 06:00 Levothyroxine Sodium (Synthroid) 25 mcg DAILY@0600 PO Last administered on 11/27/18 05:45; Admin Dose 25 MCG; Start 11/08/18 at 06:30 Ondansetron HCl (Zofran Inj) 4 mg Q6H PRN IV NAUSEA AND/OR VOMITING Last administered on 11/23/18 15:12; Admin Dose 4 MG; Start 11/08/18 at 10:30 Lorazepam (Ativan) 0.5 mg Q6H PRN PO ANXIETY Last administered on 11/23/18 15:12; Admin Dose 0.5 MG; Start 11/09/18 at 00:00 Psyllium Hydrophilic Mucilloid (Metamucil) 1 pkt DAILY PO Last administered on 11/27/18 09:16; Admin Dose 1 PKT; Start 11/10/18 at 09:00 Megestrol Acetate (Megace Susp) 400 mg BID PO Last administered on 11/27/18 09:16; Admin Dose 400 MG; Start 11/12/18 at 21:00 Metoprolol Tartrate (Lopressor) 100 mg BID PO Last administered on 11/27/18 09:17; Admin Dose 100 MG; Start 11/20/18 at 21:00 Zolpidem Tartrate (Ambien) 5 mg HS PRN PO INSOMNIA Last administered on 11/23/18 20:34; Admin Dose 5 MG; Start 11/23/18 at 18:00 Bumetanide (Bumex) 1 mg DAILY PO Last administered on 11/26/18 09:01; Admin Dose 1 MG; Start 11/25/18 at 09:00; Status Hold Potassium Chloride (Klor-Con 20) 20 meq DAILY PO Last administered on 11/25/18 10:24; Admin Dose 20 MEQ; Start 11/25/18 at 09:00; Status Hold Dextrose/Sodium Chloride 1,000 ml @ 50 mls/hr Q20H IV Last administered on 11/04 18:00; Admin Dose 50 MLS/HR; Start 11/26/18 at 17:30 Albumin Human 100 ml @ 100 mls/hr Q8H IV ; Start 11/27/18 at 14:30; Stop 11/28/18 at 07:29 OSCAR GAYTAN 25, 2019 15:22
[2018-11-27] MEDS: ALBUMIN HUMAN 25% 100 ML IV SCH ×2 (15:25→22:44)
--- NOTE | 2018-11-27 15:33 | CONS ---
Assessment/Plan Assessment/Plan Hospital Course (Demo Recall) #Coagulopathy -pt is noted to have an elevated PT (26sec) and PTT(35 sec). Today patient;s PTT is within normal limits. PT mixing study corrected. This essentially rules out a factor inhibitor. This makes the most likely cause of her coagulopathy her underlying cirrhosis and Vitamin K deficiency -s/p oral Vitamin K 5mg x 3 days -when last checked INR wnl -continue eliquis at this time for afib #Thrombocytopenia -likely 2/2 cirrhosis -platelets currently greater than 140K #Colitis -GI consulted -continue Levaquin and Flagyl #JACKELIN on CKD -management per nephrology #CHF -pt on bumex #Afib -may continue eliquis as mentioned above #HTN -continue current BP meds #RA -management per rheumatology Thank you for the opportunity to participate in this patients care A total of 40 minutes of face to face time was spent speaking with the patient, of which greater than 50% was spent in counseling and coordination of care and the detailed question and answer session. Consultation Date/Type/Reason Admit Date/Time Nov 07, 2018 at 12:41 Initial Consult Date 11/12/18 Type of Consult hematology Reason for Consultation coagulopathy Requesting Provider: REJI KAUFFMAN MD Date/Time of Note DATE: 11/27/18 TIME: 15:32 24 HR Interval Summary Free Text/Dictation no acute overnight events Exam/Review of Systems Exam Vitals Vital Signs Date Temp Pulse Resp B/P (MAP) Pulse Ox O2 O2 Flow FiO2 Time Delivery Rate 11/27/18 89 12:11 11/27/18 97.8 17 126/65 95 11:31 (85) 11/27/18 Nasal 2.0 08:45 Cannula Intake and Output 11/26/18 11/26/18 11/27/18 1515:00 23:00 07:00 IntakeIntake Total 800 ml 200 ml OutputOutput Total 675 ml BalanceBalance 125 ml 200 ml Constitutional: alert, oriented Psych: no complaints Head: normocephalic Eyes: nl conjunctiva ENMT: nl external ears & nose Neck: supple Respiratory: clear to auscultation Cardiovascular: regular rate and rhythm Gastrointestinal: soft Musculoskeletal: swelling Results Result Diagram: 11/27/18 0539 11/27/18 0539 Results 24hrs Laboratory Tests Test 11/27/18 05:39 White Blood Count 6.2 Red Blood Count 3.78 L Hemoglobin 12.5 Hematocrit 37.8 Mean Corpuscular Volume 100.0 Mean Corpuscular Hemoglobin 33.1 H Mean Corpuscular Hemoglobin Concent 33.1 Red Cell Distribution Width 19.5 H Platelet Count 168 Mean Platelet Volume 11.2 H Immature Granulocytes % 0.200 Neutrophils % 41.1 Lymphocytes % 48.5 Monocytes % 9.2 Eosinophils % 0.5 Basophils % 0.5 Nucleated Red Blood Cells % 0.0 Immature Granulocytes # 0.010 Neutrophils # 2.5 Lymphocytes # 3.0 H Monocytes # 0.6 Eosinophils # 0.0 Basophils # 0.0 Nucleated Red Blood Cells # 0.0 Sodium Level 135 Potassium Level 4.7 Chloride Level 96 L Carbon Dioxide Level 26 Anion Gap 13 Blood Urea Nitrogen 46 H Creatinine 2.14 H Est Glomerular Filtrat Rate mL/min Glucose Level 88 Calcium Level 8.1 L Phosphorus Level 4.9 Magnesium Level 2.1 Medications Medication Current Medications Acetaminophen (Tylenol Tab) 650 mg Q6H PRN PO MILD PAIN(1-3)OR ELEVATED TEMP Last administered on 11/12/18 00:29; Admin Dose 650 MG; Start 11/07/18 at 10:00 Loperamide HCl (Imodium Cap) 2 mg QID PRN PO DIARRHEA Last administered on 11/09/18at 02:45; Admin Dose 2 MG; Start 11/07/18 at 10:30 Amiodarone HCl (Cordarone) 100 mg DAILY PO Last administered on 11/27/18 09:19; Admin Dose 100 MG; Start 11/08/18 at 09:00 Apixaban (Eliquis) 2.5 mg BID PO Last administered on 11/24/18 08:16; Admin Dose 2.5 MG; Start 11/07/18 at 12:00 Cholecalciferol (Vitamin D) 2,000 unit DAILY PO Last administered on 11/27/18 09:17; Admin Dose 2,000 UNIT; Start 11/08/18 at 09:00 Donepezil HCl (Aricept) 10 mg DAILY PO Last administered on 11/27/18 09:17; Admin Dose 10 MG; Start 11/08/18 at 09:00 Escitalopram Oxalate (Lexapro) 20 mg DAILY PO Last administered on 11/27/18 09:17; Admin Dose 20 MG; Start 11/08/18 at 09:00 EZETIMIBE (Zetia) 10 mg DAILY PO Last administered on 11/27/18 09:17; Admin Dose 10 MG; Start 11/08/18 at 09:00 Folic Acid (Folic Acid) 1 mg DAILY PO Last administered on 11/27/18 09:17; Admin Dose 1 MG; Start 11/08/18 at 09:00 Pantoprazole (Protonix Tab) 40 mg DAILY@06 PO Last administered on 11/27/18 05:45; Admin Dose 40 MG; Start 11/08/18 at 06:00 Levothyroxine Sodium (Synthroid) 25 mcg DAILY@0600 PO Last administered on 11/27/18 05:45; Admin Dose 25 MCG; Start 11/08/18 at 06:30 Ondansetron HCl (Zofran Inj) 4 mg Q6H PRN IV NAUSEA AND/OR VOMITING Last administered on 11/23/18 15:12; Admin Dose 4 MG; Start 11/08/18 at 10:30 Lorazepam (Ativan) 0.5 mg Q6H PRN PO ANXIETY Last administered on 11/23/18 15:12; Admin Dose 0.5 MG; Start 11/09/18 at 00:00 Psyllium Hydrophilic Mucilloid (Metamucil) 1 pkt DAILY PO Last administered on 11/27/18 09:16; Admin Dose 1 PKT; Start 11/10/18 at 09:00 Megestrol Acetate (Megace Susp) 400 mg BID PO Last administered on 11/27/18 09:16; Admin Dose 400 MG; Start 11/12/18 at 21:00 Metoprolol Tartrate (Lopressor) 100 mg BID PO Last administered on 11/27/18 09:17; Admin Dose 100 MG; Start 11/20/18 at 21:00 Zolpidem Tartrate (Ambien) 5 mg HS PRN PO INSOMNIA Last administered on 11/23/18 20:34; Admin Dose 5 MG; Start 11/23/18 at 18:00 Bumetanide (Bumex) 1 mg DAILY PO Last administered on 11/26/18 09:01; Admin Dose 1 MG; Start 11/25/18 at 09:00; Status Hold Potassium Chloride (Klor-Con 20) 20 meq DAILY PO Last administered on 11/25/18at 10:24; Admin Dose 20 MEQ; Start 11/25/18 at 09:00; Status Hold Dextrose/Sodium Chloride 1,000 ml @ 50 mls/hr Q20H IV Last administered on 11/26/18at 18:00; Admin Dose 50 MLS/HR; Start 11/26/18 at 17:30 Albumin Human 100 ml @ 100 mls/hr Q8H IV Last administered on 11/27/18at 15:25; Admin Dose 100 MLS/HR; Start 11/27/18 at 14:30; Stop 11/28/18 at 07:29 CRISTIAN LEBLANC M.D. Nov 27, 2018 15:33
--- NOTE | 2018-11-27 16:44 | CONS ---
Assessment/Plan Cardiology NYHA: III Heart Failure Type: Acute on Chronic Heart Failure Type: Both Assessment/Plan Hospital Course (Demo Recall) Atrial fibrillation with initially rapid ventricular rates, improved Nausea, vomiting-resolved Acute decompensated systolic and diastolic congestive heart failure Acute kidney injury Mitral and tricuspid valve regurgitation Possible colitis Hypertension Dyslipidemia History of pacemaker Heart rate trend overall improving, continue beta-carine and titrate as needed As per daughter, patient with more swelling in her face, renal function has been labile, diuretics and fluids titrated as per nephrology Continue anticoagulation if no contraindication Consultation Date/Type/Reason Admit Date/Time Nov 07, 2018 at 12:41 Initial Consult Date Type of Consult Cardiology Requesting Provider: REJI KAUFFMAN MD Date/Time of Note DATE: 11/27/18 TIME: 16:43 24 HR Interval Summary Free Text/Dictation As per daughter, appears more swollen. Denies shortness of breath. Complains of intermittent nausea and fatigue Exam/Review of Systems Vital Signs Vitals Vital Signs Date Temp Pulse Resp B/P (MAP) Pulse Ox O2 O2 Flow FiO2 Time Delivery Rate 11/27/18 97.4 84 17 122/63 97 15:39 (82) 11/27/18 Nasal 2.0 08:45 Cannula Intake and Output 11/26/18 11/26/18 11/27/18 1515:00 23:00 07:00 IntakeIntake Total 800 ml 200 ml OutputOutput Total 675 ml BalanceBalance 125 ml 200 ml Exam Constitutional: alert, oriented (No apparent distress, lying in bed) Head: normocephalic Respiratory: other (Coarse breath sounds bilaterally, no wheezing) Cardiovascular: irregular rhythm, systolic murmur Gastrointestinal: soft, non-tender, bowel sounds Extremities: edema Labs Result Diagram: 11/27/18 0539 11/27/18 0539 Results 24hrs Laboratory Tests Test 11/27/18 05:39 White Blood Count 6.2 Red Blood Count 3.78 L Hemoglobin 12.5 Hematocrit 37.8 Mean Corpuscular Volume 100.0 Mean Corpuscular Hemoglobin 33.1 H Mean Corpuscular Hemoglobin Concent 33.1 Red Cell Distribution Width 19.5 H Platelet Count 168 Mean Platelet Volume 11.2 H Immature Granulocytes % 0.200 Neutrophils % 41.1 Lymphocytes % 48.5 Monocytes % 9.2 Eosinophils % 0.5 Basophils % 0.5 Nucleated Red Blood Cells % 0.0 Immature Granulocytes # 0.010 Neutrophils # 2.5 Lymphocytes # 3.0 H Monocytes # 0.6 Eosinophils # 0.0 Basophils # 0.0 Nucleated Red Blood Cells # 0.0 Sodium Level 135 Potassium Level 4.7 Chloride Level 96 L Carbon Dioxide Level 26 Anion Gap 13 Blood Urea Nitrogen 46 H Creatinine 2.14 H Est Glomerular Filtrat Rate mL/min Glucose Level 88 Calcium Level 8.1 L Phosphorus Level 4.9 Magnesium Level 2.1 Medications Medications Current Medications Acetaminophen (Tylenol Tab) 650 mg Q6H PRN PO MILD PAIN(1-3)OR ELEVATED TEMP Last administered on 11/12/18 00:29; Admin Dose 650 MG; Start 11/07/18 at 10:00 Loperamide HCl (Imodium Cap) 2 mg QID PRN PO DIARRHEA Last administered on 11/09/18 02:45; Admin Dose 2 MG; Start 11/07/18 at 10:30 Amiodarone HCl (Cordarone) 100 mg DAILY PO Last administered on 11/27/18 09:19; Admin Dose 100 MG; Start 11/08/18 at 09:00 Apixaban (Eliquis) 2.5 mg BID PO Last administered on 11/24/18 08:16; Admin Dose 2.5 MG; Start 11/07/18 at 12:00 Cholecalciferol (Vitamin D) 2,000 unit DAILY PO Last administered on 11/27/18 09:17; Admin Dose 2,000 UNIT; Start 11/08/18 at 09:00 Donepezil HCl (Aricept) 10 mg DAILY PO Last administered on 11/27/18 09:17; Admin Dose 10 MG; Start 11/08/18 at 09:00 Escitalopram Oxalate (Lexapro) 20 mg DAILY PO Last administered on 11/27/18 09 :17; Admin Dose 20 MG; Start 11/08/18 at 09:00 EZETIMIBE (Zetia) 10 mg DAILY PO Last administered on 11/27/18 09:17; Admin Dose 10 MG; Start 11/08/18 at 09:00 Folic Acid (Folic Acid) 1 mg DAILY PO Last administered on 11/27/18 09:17; Admin Dose 1 MG; Start 11/08/18 at 09:00 Pantoprazole (Protonix Tab) 40 mg DAILY@06 PO Last administered on 11/27/18 05:45; Admin Dose 40 MG; Start 11/08/18 at 06:00 Levothyroxine Sodium (Synthroid) 25 mcg DAILY@0600 PO Last administered on 11/27/18 05:45; Admin Dose 25 MCG; Start 11/08/18 at 06:30 Ondansetron HCl (Zofran Inj) 4 mg Q6H PRN IV NAUSEA AND/OR VOMITING Last administered on 11/23/18 15:12; Admin Dose 4 MG; Start 11/08/18 at 10:30 Lorazepam (Ativan) 0.5 mg Q6H PRN PO ANXIETY Last administered on 11/23/18 15:12; Admin Dose 0.5 MG; Start 11/09/18 at 00:00 Psyllium Hydrophilic Mucilloid (Metamucil) 1 pkt DAILY PO Last administered on 11/27/18 09:16; Admin Dose 1 PKT; Start 11/10/18 at 09:00 Megestrol Acetate (Megace Susp) 400 mg BID PO Last administered on 11/27/18 09:16; Admin Dose 400 MG; Start 11/12/18 at 21:00 Metoprolol Tartrate (Lopressor) 100 mg BID PO Last administered on 11/27/18 09:17; Admin Dose 100 MG; Start 11/20/18 at 21:00 Zolpidem Tartrate (Ambien) 5 mg HS PRN PO INSOMNIA Last administered on 11/23/18 20:34; Admin Dose 5 MG; Start 11/23/18 at 18:00 Bumetanide (Bumex) 1 mg DAILY PO Last administered on 11/26/18 09:01; Admin Dose 1 MG; Start 11/25/18 at 09:00; Status Hold Potassium Chloride (Klor-Con 20) 20 meq DAILY PO Last administered on 11/25/18 10:24; Admin Dose 20 MEQ; Start 11/25/18 at 09:00; Status Hold Dextrose/Sodium Chloride 1,000 ml @ 50 mls/hr Q20H IV Last administered on 11/26/18 18:00; Admin Dose 50 MLS/HR; Start 11/26/18 at 17:30 Albumin Human 100 ml @ 100 mls/hr Q8H IV Last administered on 11/27/18at 15:25; Admin Dose 100 MLS/HR; Start 11/27/18 at 14:30; Stop 11/28/18 at 07:29 Perico Mayers DO Nov 27, 2018 16:44
[2018-11-27] MEDS: APIXABAN 5 MG TABLET PO SCH (20:28)
[2018-11-28] VITALS (8 sets, daily range): BP systolic 113–141; BP diastolic 54–78; PULSE 73–96; RESP 16–20
[2018-11-28] MEDS: PANTOPRAZOLE (EC) 40 MG TAB PO SCH (05:48)
[2018-11-28] MEDS: LEVOTHYROXINE 25 MCG TAB PO SCH (05:48)
[2018-11-28] MEDS: ALBUMIN HUMAN 25% 100 ML IV SCH (05:50)
[2018-11-28] MEDS: DEXTROSE 5%-0.45% NACL 1,000 ML IV SCH (09:30)
[2018-11-28] MEDS: CHOLECALCIFEROL 2,000 UNIT CAP PO SCH (09:40)
[2018-11-28] MEDS: FOLIC ACID 1 MG TAB PO SCH (09:40)
[2018-11-28] MEDS: DONEPEZIL 10 MG TAB PO SCH (09:41)
[2018-11-28] MEDS: ESCITALOPRAM 10 MG TAB PO SCH (09:41)
[2018-11-28] MEDS: METOPROLOL 100 MG TAB PO SCH (09:41)
[2018-11-28] MEDS: EZETIMIBE 10 MG TAB PO SCH (09:41)
[2018-11-28] MEDS: APIXABAN 5 MG TABLET PO SCH ×2 (09:42→20:38)
[2018-11-28] MEDS: AMIODARONE 200 MG TAB PO SCH (09:42)
[2018-11-28] MEDS: PSYLLIUM 28% PACKET PO SCH (09:43)
[2018-11-28] MEDS: MEGESTROL (40 MG/ML) 10ML CUP PO SCH ×2 (09:43→20:38)
--- NOTE | 2018-11-28 11:30 | CONS ---
Assessment/Plan Cardiology NYHA: III Heart Failure Type: Acute on Chronic Heart Failure Type: Both Assessment/Plan Hospital Course (Demo Recall) Atrial fibrillation with initially rapid ventricular rates, improved Nausea, vomiting-resolved Acute decompensated systolic and diastolic congestive heart failure Acute kidney injury Mitral and tricuspid valve regurgitation Possible colitis Hypertension Dyslipidemia History of pacemaker Heart rate trend overall improving, continue beta-carine and titrate as needed Would add hydralazine for afterload reduction if blood pressure tolerates Continue anticoagulation if no contraindication Extensive discussion had with patient's daughter at bedside. Initially, she tells me repeatedly that her mother did not have any kidney problems prior to admission, I did explain to her again that her presenting creatinine was elevated in the emergency room. She then tells me that " the hospital is why she has so much fluid in her body". I tried explaining to the patient's daughter multiple times regarding the difficulties in her mother's management including decompensated congestive heart failure, atrial fibrillation, renal dysfunction and balancing fluids and diuretics. Furthermore, patient does not significant motivation as well as possibly depressed. I did explain to family there are multiple reasons of patient's condition. Consultation Date/Type/Reason Admit Date/Time Nov 07, 2018 at 12:41 Initial Consult Date Type of Consult Cardiology Requesting Provider: REJI KAUFFMAN MD Date/Time of Note DATE: 11/28/18 TIME: 11:25 24 HR Interval Summary Free Text/Dictation As per daughter, patient with worsening fatigue. Denies shortness of breath, chest pain or palpitations. She has poor appetite, does not want to speak Exam/Review of Systems Vital Signs Vitals Vital Signs Date Temp Pulse Resp B/P (MAP) Pulse Ox O2 O2 Flow FiO2 Time Delivery Rate 11/28/18 80 08:40 11/28/18 97.7 18 129/71 98 07:10 (90) 11/27/18 Nasal 2.0 20:00 Cannula Intake and Output 11/27/18 11/27/18 11/28/18 1515:00 23:00 07:00 IntakeIntake Total 340 ml 350 ml 700 ml BalanceBalance 340 ml 350 ml 700 ml Exam Constitutional: alert, oriented (Following commands, sitting in chair) Head: normocephalic Respiratory: other (Coarse breath sounds bilaterally, no wheezing) Cardiovascular: irregular rhythm (S1-S2 heard) Gastrointestinal: soft, non-tender, bowel sounds Extremities: edema Labs Result Diagram: 11/27/18 0539 11/28/18 0525 Results 24hrs Laboratory Tests Test 11/28/18 05:25 Sodium Level 132 L Potassium Level 4.6 Chloride Level 96 L Carbon Dioxide Level 25 Anion Gap 11 Blood Urea Nitrogen 45 H Creatinine 1.96 H Est Glomerular Filtrat Rate mL/min Glucose Level 87 Calcium Level 8.4 Medications Medications Current Medications Acetaminophen (Tylenol Tab) 650 mg Q6H PRN PO MILD PAIN(1-3)OR ELEVATED TEMP Last administered on 11/12/18 00:29; Admin Dose 650 MG; Start 11/07/18 at 10:00 Loperamide HCl (Imodium Cap) 2 mg QID PRN PO DIARRHEA Last administered on 02:45; Admin Dose 2 MG; Start 11/07/18 at 10:30 Amiodarone HCl (Cordarone) 100 mg DAILY PO Last administered on 11/28/18 09:42; Admin Dose 100 MG; Start 11/08/18 at 09:00 Apixaban (Eliquis) 2.5 mg BID PO Last administered on 11/28/18 09:42; Admin Dose 2.5 MG; Start 11/07/18 at 12:00 Cholecalciferol (Vitamin D) 2,000 unit DAILY PO Last administered on 11/28/18 09:40; Admin Dose 2,000 UNIT; Start 11/08/18 at 09:00 Donepezil HCl (Aricept) 10 mg DAILY PO Last administered on 11/28/18 09:41; Admin Dose 10 MG; Start 11/08/18 at 09:00 Escitalopram Oxalate (Lexapro) 20 mg DAILY PO Last administered on 11/28/18 09:41; Admin Dose 20 MG; Start 11/08/18 at 09:00 EZETIMIBE (Zetia) 10 mg DAILY PO Last administered on 11/28/18 09:41; Admin Dose 10 MG; Start 11/08/18 at 09:00 Folic Acid (Folic Acid) 1 mg DAILY PO Last administered on 11/28/18 09:40; Admin Dose 1 MG; Start 11/08/18 at 09:00 Pantoprazole (Protonix Tab) 40 mg DAILY@06 PO Last administered on 11/28/18 05:48; Admin Dose 40 MG; Start 11/08/18 at 06:00 Levothyroxine Sodium (Synthroid) 25 mcg DAILY@0600 PO Last administered on 11/28/18 05:48; Admin Dose 25 MCG; Start 11/08/18 at 06:30 Ondansetron HCl (Zofran Inj) 4 mg Q6H PRN IV NAUSEA AND/OR VOMITING Last administered on 11/23/18 15:12; Admin Dose 4 MG; Start 11/08/18 at 10:30 Lorazepam (Ativan) 0.5 mg Q6H PRN PO ANXIETY Last administered on 11/23/18 15:12; Admin Dose 0.5 MG; Start 11/09/18 at 00:00 Psyllium Hydrophilic Mucilloid (Metamucil) 1 pkt DAILY PO Last administered on 11/28/18 09:43; Admin Dose 1 PKT; Start 11/10/18 at 09:00 Megestrol Acetate (Megace Susp) 400 mg BID PO Last administered on 11/28/18 09:43; Admin Dose 400 MG; Start 11/12/18 at 21:00 Metoprolol Tartrate (Lopressor) 100 mg BID PO Last administered on 11/28/18 09:41; Admin Dose 100 MG; Start 11/20/18 at 21:00 Zolpidem Tartrate (Ambien) 5 mg HS PRN PO INSOMNIA Last administered on 11/23/18 20:34; Admin Dose 5 MG; Start 11/23/18 at 18:00 Bumetanide (Bumex) 1 mg DAILY PO Last administered on 11/26/18 09:01; Admin Dose 1 MG; Start 11/25/18 at 09:00; Status Hold Potassium Chloride (Klor-Con 20) 20 meq DAILY PO Last administered on 11/25/18 10:24; Admin Dose 20 MEQ; Start 11/25/18 at 09:00; Status Hold Dextrose/Sodium Chloride 1,000 ml @ 50 mls/hr Q20H IV Last administered on 11/26/18 18:00; Admin Dose 50 MLS/HR; Start 11/26/18 at 17:30 Perico Mayers DO Nov 28, 2018 11:30
--- NOTE | 2018-11-28 13:49 | CONS ---
Assessment/Plan Assessment/Plan Assessment/Plan (Daily) 1. Nonoliguric acute kidney injury on top of chronic kidney disease stage III. Etiology of acute kidney injury is secondary to hemodynamics. Renal function has declined. -BUN/Cr improved to 45/1.96 with IVF and IV albumin, continue to hold Bumex for today- plan is to d/c IVF in AM and resume Low dose bumex dose 2. Acute systolic, diastolic heart failure. The patient appears compensated. Continue to monitor renal function closely.- Bumex has been on hold( 1mg po daily ) 3. Hypokalemia, improved. 4. Hypernatremia, improved. 5. Mineral bone disorder. Monitor calcium and phosphorus levels. 6. Atrial fibrillation. Continue medical management., on Eliquis for anticoagulation 7. Possible colitis. The patient is completing antibiotic course. 8. Rheumatoid arthritis. Continue to monitor. Consultation Date/Type/Reason Admit Date/Time Nov 07, 2018 at 12:41 Initial Consult Date 11/09/18 Type of Consult NEPHROLOGY Requesting Provider: REJI KAUFFMAN MD Date/Time of Note DATE: 11/28/18 TIME: 13:48 24 HR Interval Summary Free Text/Dictation BUN/Cr improved to 45/1.96, Bp stable, Bumex has been on Hold Exam/Review of Systems Exam Vitals Vital Signs Date Temp Pulse Resp B/P (MAP) Pulse Ox O2 O2 Flow FiO2 Time Delivery Rate 11/28/18 96 12:21 11/28/18 98.3 17 141/63 98 11:45 (89) 11/27/18 Nasal 2.0 20:00 Cannula Intake and Output 11/27/18 11/27/18 11/28/18 1515:00 23:00 07:00 IntakeIntake Total 340 ml 350 ml 700 ml BalanceBalance 340 ml 350 ml 700 ml Exam HEENT: Head is normocephalic. LUNGS: Show diminished breath sounds at the base. ABDOMEN: Soft, nontender to palpation without rebound or guarding. EXTREMITIES: Negative for clubbing, cyanosis. Trace edema. DERMATOLOGIC: No rashes. MUSCULOSKELETAL: No joint effusion. NEUROLOGIC: Non focal Results Result Diagram: 11/27/18 0539 11/28/18 0525 Results 24hrs Laboratory Tests Test 11/28/18 05:25 Sodium Level 132 L Potassium Level 4.6 Chloride Level 96 L Carbon Dioxide Level 25 Anion Gap 11 Blood Urea Nitrogen 45 H Creatinine 1.96 H Est Glomerular Filtrat Rate mL/min Glucose Level 87 Calcium Level 8.4 Medications Medication Current Medications Acetaminophen (Tylenol Tab) 650 mg Q6H PRN PO MILD PAIN(1-3)OR ELEVATED TEMP Last administered on 11/12/18 00:29; Admin Dose 650 MG; Start 11/07/18 at 10:00 Loperamide HCl (Imodium Cap) 2 mg QID PRN PO DIARRHEA Last administered on 11/09/18 02:45; Admin Dose 2 MG; Start 11/07/18 at 10:30 Amiodarone HCl (Cordarone) 100 mg DAILY PO Last administered on 11/28/18 09:42; Admin Dose 100 MG; Start 11/08/18 at 09:00 Apixaban (Eliquis) 2.5 mg BID PO Last administered on 11/28/18 09:42; Admin Dose 2.5 MG; Start 11/07/18 at 12:00 Cholecalciferol (Vitamin D) 2,000 unit DAILY PO Last administered on 11/28/18 09:40; Admin Dose 2,000 UNIT; Start 11/08/18 at 09:00 Donepezil HCl (Aricept) 10 mg DAILY PO Last administered on 11/28/18 09:41; Admin Dose 10 MG; Start 11/08/18 at 09:00 Escitalopram Oxalate (Lexapro) 20 mg DAILY PO Last administered on 11/28/18 09:41; Admin Dose 20 MG; Start 11/08/18 at 09:00 EZETIMIBE (Zetia) 10 mg DAILY PO Last administered on 11/28/18 09:41; Admin Dose 10 MG; Start 11/08/18 at 09:00 Folic Acid (Folic Acid) 1 mg DAILY PO Last administered on 11/28/18 09:40; Admin Dose 1 MG; Start 11/08/18 at 09:00 Pantoprazole (Protonix Tab) 40 mg DAILY@06 PO Last administered on 11/28/18 05 :48; Admin Dose 40 MG; Start 11/08/18 at 06:00 Levothyroxine Sodium (Synthroid) 25 mcg DAILY@0600 PO Last administered on 11/28/18 05:48; Admin Dose 25 MCG; Start 11/08/18 at 06:30 Ondansetron HCl (Zofran Inj) 4 mg Q6H PRN IV NAUSEA AND/OR VOMITING Last administered on 11/23/18 15:12; Admin Dose 4 MG; Start 11/08/18 at 10:30 Lorazepam (Ativan) 0.5 mg Q6H PRN PO ANXIETY Last administered on 11/23/18 15:12; Admin Dose 0.5 MG; Start 11/09/18 at 00:00 Psyllium Hydrophilic Mucilloid (Metamucil) 1 pkt DAILY PO Last administered on 11/28/18 09:43; Admin Dose 1 PKT; Start 11/10/18 at 09:00 Megestrol Acetate (Megace Susp) 400 mg BID PO Last administered on 11/28/18 09:43; Admin Dose 400 MG; Start 11/12/18 at 21:00 Zolpidem Tartrate (Ambien) 5 mg HS PRN PO INSOMNIA Last administered on 11/23/18 at 20:34; Admin Dose 5 MG; Start 11/23/18 at 18:00 Bumetanide (Bumex) 1 mg DAILY PO Last administered on 11/26/18 09:01; Admin Dose 1 MG; Start 11/25/18 at 09:00; Status Hold Potassium Chloride (Klor-Con 20) 20 meq DAILY PO Last administered on 11/25/18 10:24; Admin Dose 20 MEQ; Start 11/25/18 at 09:00; Status Hold Dextrose/Sodium Chloride 1,000 ml @ 50 mls/hr Q20H IV Last administered on 11/26/18 18:00; Admin Dose 50 MLS/HR; Start 11/26/18 at 17:30 Metoprolol Succinate (Toprol Xl) 100 mg BID PO ; Start 11/28/18 at 21:00 Hydralazine HCl (Apresoline) 5 mg BID PO ; Start 11/28/18 at 21:00 BEATRIZ PLEITEZ MD Nov 28, 2018 13:48
--- NOTE | 2018-11-28 18:25 | PN ---
Date/Time of Note Date/Time of Note DATE: 11/28/18 TIME: 18:24 Assessment/Plan VTE Prophylaxis Risk score (from Ns)>0 risk: 5 SCD applied (from Ns): No SCD contraindicated: other Pharmacological prophylaxis: apixaban Lines/Catheters IV Catheter Type (from [facility]): Mid Line Central line still needed: Yes Urinary Cath still in place: No Assessment/Plan Hospital Course Patient is awake alert however complains of generalized weakness per daughter and poor appetite, patient continues in atrial fibrillation with controlled rate denies any chest pain denies shortness of breath. Plan of care discussed with patient daughter, all questions answered. Assessment/Plan -Left foot cellulitis,resolved. s/p Ancef. -Acute decompensated systolic and diastolic congestive heart failure. -Nonoliguric acute kidney injury on top of chronic kidney disease stage III. Dr. Juárez is following in nephrology consultation. -Coagulopathy most likely to liver cirrhosis and vitamin K deficiency, status post vitamin K, improved. Dr. Ramsay is following in hematology consultation. -Atrial fibrillation with initially rapid ventricular rates, improved, continue metoprolol. Dr Mayers is following in cardiology consultation. -Nausea vomiting and diarrhea for 2 days, resolved. Dr. Merchant is following in gastroenterology consultation. -Colitis per CT scan. S/p Levaquin and Flagyl. 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 Patient unable to undergo MRI due to pacemaker. Dr. Duque is following and podiatry consultation. -Hypertension, continue metoprolol Norvasc and Cozaar -PPM -Hypothyroidism, continue levothyroxine. -Rheumatoid arthritis, Dr Grant is following in rheumatology consultation. Further recommendations based on clinical course. Plan of care discussed with Dr. Rayo. Result Diagram: 11/27/18 0539 11/28/18 0525 Results 24hrs Laboratory Tests Test 11/28/18 05:25 Sodium Level 132 L Potassium Level 4.6 Chloride Level 96 L Carbon Dioxide Level 25 Anion Gap 11 Blood Urea Nitrogen 45 H Creatinine 1.96 H Est Glomerular Filtrat Rate mL/min Glucose Level 87 Calcium Level 8.4 Exam/Review of Systems Exam Vitals Vital Signs Date Temp Pulse Resp B/P (MAP) Pulse Ox O2 O2 Flow FiO2 Time Delivery Rate 11/28/18 96.3 17 139/78 98 15:29 (98) 11/28/18 96 12:21 11/27/18 Nasal 2.0 20:00 Cannula Intake and Output 11/27/18 11/27/18 11/28/18 1515:00 23:00 07:00 IntakeIntake Total 340 ml 350 ml 700 ml BalanceBalance 340 ml 350 ml 700 ml Exam Constitutional: alert, oriented Respiratory: clear to auscultation Cardiovascular: irregular rhythm, other (L chest PPM) Gastrointestinal: soft, non-tender Musculoskeletal: nl extremities to inspection Extremities: normal pulses Neurological: nl mental status Results Results 24hrs Laboratory Tests Test 11/28/18 05:25 Sodium Level 132 L Potassium Level 4.6 Chloride Level 96 L Carbon Dioxide Level 25 Anion Gap 11 Blood Urea Nitrogen 45 H Creatinine 1.96 H Est Glomerular Filtrat Rate mL/min Glucose Level 87 Calcium Level 8.4 Medications Medication Current Medications Acetaminophen (Tylenol Tab) 650 mg Q6H PRN PO MILD PAIN(1-3)OR ELEVATED TEMP Last administered on 11/12/18at 00:29; Admin Dose 650 MG; Start 11/07/18 at 10:00 Loperamide HCl (Imodium Cap) 2 mg QID PRN PO DIARRHEA Last administered on 11/09/18 02:45; Admin Dose 2 MG; Start 11/07/18 at 10:30 Amiodarone HCl (Cordarone) 100 mg DAILY PO Last administered on 11/28/18 09:42; Admin Dose 100 MG; Start 11/08/18 at 09:00 Apixaban (Eliquis) 2.5 mg BID PO Last administered on 11/28/18 09:42; Admin Dose 2.5 MG; Start 11/07/18 at 12:00 Cholecalciferol (Vitamin D) 2,000 unit DAILY PO Last administered on 11/28/18 09:40; Admin Dose 2,000 UNIT; Start 11/08/18 at 09:00 Donepezil HCl (Aricept) 10 mg DAILY PO Last administered on 11/28/18 09:41; Admin Dose 10 MG; Start 11/08/18 at 09:00 Escitalopram Oxalate (Lexapro) 20 mg DAILY PO Last administered on 11/28/18 09:41; Admin Dose 20 MG; Start 11/08/18 at 09:00 EZETIMIBE (Zetia) 10 mg DAILY PO Last administered on 11/28/18 09:41; Admin Do se 10 MG; Start 11/08/18 at 09:00 Folic Acid (Folic Acid) 1 mg DAILY PO Last administered on 11/28/18 09:40; Admin Dose 1 MG; Start 11/08/18 at 09:00 Pantoprazole (Protonix Tab) 40 mg DAILY@06 PO Last administered on 11/28/18 05:48; Admin Dose 40 MG; Start 11/08/18 at 06:00 Levothyroxine Sodium (Synthroid) 25 mcg DAILY@0600 PO Last administered on 11/28/18 05:48; Admin Dose 25 MCG; Start 11/08/18 at 06:30 Ondansetron HCl (Zofran Inj) 4 mg Q6H PRN IV NAUSEA AND/OR VOMITING Last administered on 11/23/18 15:12; Admin Dose 4 MG; Start 11/08/18 at 10:30 Lorazepam (Ativan) 0.5 mg Q6H PRN PO ANXIETY Last administered on 11/23/18 15:12; Admin Dose 0.5 MG; Start 11/09/18 at 00:00 Psyllium Hydrophilic Mucilloid (Metamucil) 1 pkt DAILY PO Last administered on 11/28/18 09:43; Admin Dose 1 PKT; Start 11/10/18 at 09:00 Megestrol Acetate (Megace Susp) 400 mg BID PO Last administered on 11/28/18 09:43; Admin Dose 400 MG; Start 11/12/18 at 21:00 Zolpidem Tartrate (Ambien) 5 mg HS PRN PO INSOMNIA Last administered on 11/23/18 20:34; Admin Dose 5 MG; Start 11/23/18 at 18:00 Bumetanide (Bumex) 1 mg DAILY PO Last administered on 11/26/18 09:01; Admin Dose 1 MG; Start 11/25/18 at 09:00; Status Hold Potassium Chloride (Klor-Con 20) 20 meq DAILY PO Last administered on 11/25/18 10:24; Admin Dose 20 MEQ; Start 11/25/18 at 09:00; Status Hold Dextrose/Sodium Chloride 1,000 ml @ 50 mls/hr Q20H IV Last administered on 11/26/18at 18:00; Admin Dose 50 MLS/HR; Start 11/26/18 at 17:30 Metoprolol Succinate (Toprol Xl) 100 mg BID PO ; Start 11/28/18 at 21:00 Hydralazine HCl (Apresoline) 5 mg BID PO ; Start 11/28/18 at 21:00 OSCAR GAYTAN Nov 28, 2018 18:25
--- NOTE | 2018-11-28 19:29 | CONS ---
Assessment/Plan Assessment/Plan Assessment/Plan (Daily) Assessment/Plan Hospital Course (Demo Recall) 83 yo female with N/V and diarrhea 1. Nausea, vomiting and diarrhea which have subsided now, most probably related to viral infection or of infectious etiology -resolved. 2. Atrial fibrillation for which she is on Eliquis. 3. Status post pacemaker insertion. 4. Dyslipidemia. 5. Hypothyroidism. 6. Hypertension. 7. Fatigue -likely due to depression -lexapro 8. Pedal edema pitting all the way up to knee, has reduced her drastically responded well to diuretics. 9. Coagulopathy may be due to cirrhosis of liver -improved -heme following 10. Abnormal LFT -patient CAT scan shows nodular liver which may be due to cirrhosis and also steatosis is playing a role -Hep panel unremarkable -LFTs wnl now 11. Thrombocytopenia -followed by Dr Ramsay 12. Liver cirrhosis noted in CT scan -HEARD? No methotrexate -hep panel unremarkable. -hepatic autoimmune panel unremarkable Plan Continue present care Consultation Date/Type/Reason Admit Date/Time Nov 07, 2018 at 12:41 Initial Consult Date Requesting Provider: REJI KAUFFMAN MD Date/Time of Note DATE: 11/28/18 TIME: 19:28 24 HR Interval Summary Constitutional: no complaints, improved Exam/Review of Systems Exam Vitals Vital Signs Date Temp Pulse Resp B/P (MAP) Pulse Ox O2 O2 Flow FiO2 Time Delivery Rate 11/28/18 96.3 17 139/78 98 15:29 (98) 11/28/18 96 12:21 11/27/18 Nasal 2.0 20:00 Cannula Intake and Output 11/27/18 11/27/18 11/28/18 1515:00 23:00 07:00 IntakeIntake Total 340 ml 350 ml 700 ml BalanceBalance 340 ml 350 ml 700 ml Constitutional: alert, oriented, well developed Psych: no complaints, nl mood/affect Head: normocephalic, atraumatic Eyes: nl conjunctiva, EOMI, nl lids, nl sclera, PERRL ENMT: nl external ears & nose, nl lips & teeth, nl nasal mucosa & septum Neck: supple, non-tender Respiratory: clear to auscultation, normal air movement Cardiovascular: regular rate and rhythm, nl pulses Gastrointestinal: soft, nl liver, spleen, non-tender Musculoskeletal: nl extremities to inspection, nl gait and stance Extremities: normal pulses Neurological: FOOD CHEMIST II-XII intact, nl mental status, nl speech, nl strength Skin: nl turgor; No rash or lesions Lymph: nl lymph nodes Results Result Diagram: 11/27/1839 11/28/18 0525 Results 24hrs Laboratory Tests Test 11/28/18 05:25 Sodium Level 132 L Potassium Level 4.6 Chloride Level 96 L Carbon Dioxide Level 25 Anion Gap 11 Blood Urea Nitrogen 45 H Creatinine 1.96 H Est Glomerular Filtrat Rate mL/min Glucose Level 87 Calcium Level 8.4 Medications Medication Current Medications Acetaminophen (Tylenol Tab) 650 mg Q6H PRN PO MILD PAIN(1-3)OR ELEVATED TEMP Last administered on 11/12/18 00:29; Admin Dose 650 MG; Start 11/07/18 at 10:00 Loperamide HCl (Imodium Cap) 2 mg QID PRN PO DIARRHEA Last administered on 11/09/18 02:45; Admin Dose 2 MG; Start 11/07/18 at 10:30 Amiodarone HCl (Cordarone) 100 mg DAILY PO Last administered on 11/28/18 09:42; Admin Dose 100 MG; Start 11/08/18 at 09:00 Apixaban (Eliquis) 2.5 mg BID PO Last administered on 11/28/18 09:42; Admin Dose 2.5 MG; Start 11/07/18 at 12:00 Cholecalciferol (Vitamin D) 2,000 unit DAILY PO Last administered on 11/28/18 09:40; Admin Dose 2,000 UNIT; Start 11/08/18 at 09:00 Donepezil HCl (Aricept) 10 mg DAILY PO Last administered on 11/28/18 09:41; Admin Dose 10 MG; Start 11/08/18 at 09:00 Escitalopram Oxalate (Lexapro) 20 mg DAILY PO Last administered on 11/28/18 09:41; Admin Dose 20 MG; Start 11/08/18 at 09:00 EZETIMIBE (Zetia) 10 mg DAILY PO Last administered on 11/28/18 09:41; Admin Dose 10 MG; Start 11/08/18 at 09:00 Folic Acid (Folic Acid) 1 mg DAILY PO Last administered on 11/28/18 09:40; Admin Dose 1 MG; Start 11/08/18 at 09:00 Pantoprazole (Protonix Tab) 40 mg DAILY@06 PO Last administered on 11/28/18 05:48; Admin Dose 40 MG; Start 11/08/18 at 06:00 Levothyroxine Sodium (Synthroid) 25 mcg DAILY@0600 PO Last administered on 11/28/18 05:48; Admin Dose 25 MCG; Start 11/08/18 at 06:30 Ondansetron HCl (Zofran Inj) 4 mg Q6H PRN IV NAUSEA AND/OR VOMITING Last administered on 11/23/18 15:12; Admin Dose 4 MG; Start 11/08/18 at 10:30 Lorazepam (Ativan) 0.5 mg Q6H PRN PO ANXIETY Last administered on 11/23/18 15:12; Admin Dose 0.5 MG; Start 11/09/18 at 00:00 Psyllium Hydrophilic Mucilloid (Metamucil) 1 pkt DAILY PO Last administered on 11/28/18 09:43; Admin Dose 1 PKT; Start 11/10/18 at 09:00 Megestrol Acetate (Megace Susp) 400 mg BID PO Last administered on 11/28/18 09:43; Admin Dose 400 MG; Start 11/12/18 at 21:00 Zolpidem Tartrate (Ambien) 5 mg HS PRN PO INSOMNIA Last administered on 11/23/18 20:34; Admin Dose 5 MG; Start 11/23/18 at 18:00 Bumetanide (Bumex) 1 mg DAILY PO Last administered on 11/26/18 09:01; Admin Dose 1 MG; Start 11/25/18 at 09:00; Status Hold Potassium Chloride (Klor-Con 20) 20 meq DAILY PO Last administered on 11/25/18 10:24; Admin Dose 20 MEQ; Start 11/25/18 at 09:00; Status Hold Dextrose/Sodium Chloride 1,000 ml @ 50 mls/hr Q20H IV Last administered on 11/26/18 18:00; Admin Dose 50 MLS/HR; Start 11/26/18 at 17:30 Metoprolol Succinate (Toprol Xl) 100 mg BID PO ; Start 11/28/18 at 21:00 Hydralazine HCl (Apresoline) 5 mg BID PO ; Start 11/28/18 at 21:00 TONY SHETTY MD Nov 28, 2018 19:29
[2018-11-28] MEDS: LORAZEPAM 0.5 MG TAB PO PRN (20:38)
[2018-11-28] MEDS: METOPROLOL (XL) 100 MG TAB PO SCH (20:39)
[2018-11-29] VITALS (8 sets, daily range): BP systolic 113–158; BP diastolic 61–98; PULSE 65–99; RESP 18–20
[2018-11-29] MEDS: DEXTROSE 5%-0.45% NACL 1,000 ML IV SCH (05:30)
[2018-11-29] MEDS: LEVOTHYROXINE 25 MCG TAB PO SCH (05:54)
[2018-11-29] MEDS: PANTOPRAZOLE (EC) 40 MG TAB PO SCH (05:54)
[2018-11-29] MEDS: MEGESTROL (40 MG/ML) 10ML CUP PO SCH ×3 (09:00→20:32)
[2018-11-29] MEDS: PSYLLIUM 28% PACKET PO SCH (09:26)
[2018-11-29] MEDS: ESCITALOPRAM 10 MG TAB PO SCH (09:26)
[2018-11-29] MEDS: CHOLECALCIFEROL 2,000 UNIT CAP PO SCH (09:27)
[2018-11-29] MEDS: DONEPEZIL 10 MG TAB PO SCH (09:27)
[2018-11-29] MEDS: FOLIC ACID 1 MG TAB PO SCH (09:27)
[2018-11-29] MEDS: APIXABAN 5 MG TABLET PO SCH ×2 (09:27→20:32)
[2018-11-29] MEDS: EZETIMIBE 10 MG TAB PO SCH (09:27)
[2018-11-29] MEDS: METOPROLOL (XL) 100 MG TAB PO SCH ×2 (09:28→20:32)
[2018-11-29] MEDS: AMIODARONE 200 MG TAB PO SCH (09:28)
--- NOTE | 2018-11-29 12:12 | CONS ---
Assessment/Plan Assessment/Plan Assessment/Plan (Daily) 1. Nonoliguric acute kidney injury on top of chronic kidney disease stage III. Etiology of acute kidney injury is secondary to hemodynamics. Renal function has declined.will resume Bumex 0.5 mg pO BID- if no imporvement by tomorrow then we will give Bumex gtt 2. Acute systolic, diastolic heart failure. The patient appears compensated. Continue to monitor renal function closely.- Bumex has been on hold( 1mg po daily ) 3. Hypokalemia, improved. 4. Hypernatremia, improved. 5. Mineral bone disorder. Monitor calcium and phosphorus levels. 6. Atrial fibrillation. Continue medical management., on Eliquis for anticoagulation 7. Possible colitis. The patient is completing antibiotic course. 8. Rheumatoid arthritis. Continue to monitor. Consultation Date/Type/Reason Admit Date/Time Nov 07, 2018 at 12:41 Initial Consult Date 11/09/18 Type of Consult NEPHROLOGY Requesting Provider: REJI KAUFFMAN MD Date/Time of Note DATE: 11/29/18 TIME: 12:12 Exam/Review of Systems Exam Vitals Vital Signs Date Temp Pulse Resp B/P (MAP) Pulse Ox O2 O2 Flow FiO2 Time Delivery Rate 11/29/18 97.5 99 19 113/61 99 11:26 (78) 11/29/18 Nasal 2.0 08:10 Cannula Intake and Output 11/28/18 11/28/18 11/29/18 1515:00 23:00 07:00 IntakeIntake Total 433 ml 100 ml 400 ml BalanceBalance 433 ml 100 ml 400 ml Results Result Diagram: 11/27/18 0539 11/28/18 0525 Results 24hrs Laboratory Tests Test 11/29/18 05:30 Thyroid Stimulating Hormone (TSH) 11.900 H Medications Medication Current Medications Acetaminophen (Tylenol Tab) 650 mg Q6H PRN PO MILD PAIN(1-3)OR ELEVATED TEMP Last administered on 11/12/18at 00:29; Admin Dose 650 MG; Start 11/07/18 at 10:00 Loperamide HCl (Imodium Cap) 2 mg QID PRN PO DIARRHEA Last administered on 11/09/18at 02:45; Admin Dose 2 MG; Start 11/07/18 at 10:30 Amiodarone HCl (Cordarone) 100 mg DAILY PO Last administered on 11/29/18 09:28; Admin Dose 100 MG; Start 11/08/18 at 09:00 Apixaban (Eliquis) 2.5 mg BID PO Last administered on 11/29/18 09:; Admin Dose 2.5 MG; Start 11/07/18 at 12:00 Cholecalciferol (Vitamin D) 2,000 unit DAILY PO Last administered on 11/29/18 09:; Admin Dose 2,000 UNIT; Start 11/08/18 at 09:00 Donepezil HCl (Aricept) 10 mg DAILY PO Last administered on 11/29/18 09:; Admin Dose 10 MG; Start 11/08/18 at 09:00 Escitalopram Oxalate (Lexapro) 20 mg DAILY PO Last administered on 11/29/18 09:26; Admin Dose 20 MG; Start 11/08/18 at 09:00 EZETIMIBE (Zetia) 10 mg DAILY PO Last administered on 11/29/18 09:; Admin Dose 10 MG; Start 11/08/18 at 09:00 Folic Acid (Folic Acid) 1 mg DAILY PO Last administered on 11/29/18 09:; Admin Dose 1 MG; Start 11/08/18 at 09:00 Pantoprazole (Protonix Tab) 40 mg DAILY@06 PO Last administered on 11/29/18 05:54; Admin Dose 40 MG; Start 11/08/18 at 06:00 Levothyroxine Sodium (Synthroid) 25 mcg DAILY@0600 PO Last administered on 11/29/18 05:54; Admin Dose 25 MCG; Start 11/08/18 at 06:30 Ondansetron HCl (Zofran Inj) 4 mg Q6H PRN IV NAUSEA AND/OR VOMITING Last administered on 11/23/18 15:12; Admin Dose 4 MG; Start 11/08/18 at 10:30 Lorazepam (Ativan) 0.5 mg Q6H PRN PO ANXIETY Last administered on 11/28/18 20:38; Admin Dose 0.5 MG; Start 11/09/18 at 00:00 Psyllium Hydrophilic Mucilloid (Metamucil) 1 pkt DAILY PO Last administered on 11/29/18 09:26; Admin Dose 1 PKT; Start 11/10/18 at 09:00 Megestrol Acetate (Megace Susp) 400 mg BID PO Last administered on 11/28/18 20:38; Admin Dose 400 MG; Start 11/12/18 at 21:00 Zolpidem Tartrate (Ambien) 5 mg HS PRN PO INSOMNIA Last administered on 11/23/18 20:34; Admin Dose 5 MG; Start 11/23/18 at 18:00 Bumetanide (Bumex) 1 mg DAILY PO Last administered on 11/26/18 09:01; Admin Dose 1 MG; Start 11/25/18 at 09:00; Status Hold Potassium Chloride (Klor-Con 20) 20 meq DAILY PO Last administered on 11/25/18 10:24; Admin Dose 20 MEQ; Start 11/25/18 at 09:00; Status Hold Dextrose/Sodium Chloride 1,000 ml @ 50 mls/hr Q20H IV Last administered on 11/26/18 18:00; Admin Dose 50 MLS/HR; Start 11/26/18 at 17:30 Metoprolol Succinate (Toprol Xl) 100 mg BID PO Last administered on 11/29/18 09:28; Admin Dose 100 MG; Start 11/28/18 at 21:00 Hydralazine HCl (Apresoline) 5 mg BID PO Last administered on 11/29/18 09:29; Admin Dose 5 MG; Start 11/28/18 at 21:00 BEATRIZ PLEITEZ MD Nov 29, 2018 12:12
[2018-11-29] MEDS: ONDANSETRON 4 MG INJ IV PRN (12:51)
--- NOTE | 2018-11-29 13:46 | CONS ---
Assessment/Plan Cardiology NYHA: III Heart Failure Type: Acute on Chronic Heart Failure Type: Both Assessment/Plan Hospital Course (Demo Recall) Atrial fibrillation with initially rapid ventricular rates, improved Nausea, vomiting-resolved Acute decompensated systolic and diastolic congestive heart failure Acute kidney injury Mitral and tricuspid valve regurgitation Possible colitis Hypertension Dyslipidemia History of pacemaker Heart rate trend overall improving, continue beta-carine and titrate as needed Titrate hydralazine as blood pressure permits Continue anticoagulation if no contraindication Discussed with nephrology, will be speaking with patient and family and titrating diuretics Consultation Date/Type/Reason Admit Date/Time Nov 07, 2018 at 12:41 Initial Consult Date Type of Consult Cardiology Requesting Provider: REJI KAUFFMAN MD Date/Time of Note DATE: 11/29/18 TIME: 13:44 24 HR Interval Summary Free Text/Dictation Denies shortness of breath, patient's family states patient more fatigued and face is more swollen Exam/Review of Systems Vital Signs Vitals Vital Signs Date Temp Pulse Resp B/P (MAP) Pulse Ox O2 O2 Flow FiO2 Time Delivery Rate 11/29/18 97.5 99 19 113/61 99 11:26 (78) 11/29/18 Nasal 2.0 08:10 Cannula Intake and Output 11/28/18 11/28/18 11/29/18 1515:00 23:00 07:00 IntakeIntake Total 433 ml 100 ml 400 ml BalanceBalance 433 ml 100 ml 400 ml Exam Constitutional: alert, oriented (No apparent distress) Head: normocephalic Respiratory: other (Coarse breath sounds bilaterally, no wheezing) Cardiovascular: regular rate and rhythm (With occasional irregularities), systolic murmur Gastrointestinal: soft, non-tender, bowel sounds Extremities: edema Labs Result Diagram: 11/27/18 0539 11/28/18 0525 Results 24hrs Laboratory Tests Test 11/29/18 05:30 Thyroid Stimulating Hormone (TSH) 11.900 H Medications Medications Current Medications Acetaminophen (Tylenol Tab) 650 mg Q6H PRN PO MILD PAIN(1-3)OR ELEVATED TEMP Last administered on 11/12/18at 00:29; Admin Dose 650 MG; Start 11/07/18 at 10:00 Loperamide HCl (Imodium Cap) 2 mg QID PRN PO DIARRHEA Last administered on 11/09/18at 02:45; Admin Dose 2 MG; Start 11/07/18 at 10:30 Amiodarone HCl (Cordarone) 100 mg DAILY PO Last administered on 11/29/18 0 9:28; Admin Dose 100 MG; Start 11/08/18 at 09:00 Apixaban (Eliquis) 2.5 mg BID PO Last administered on 11/29/18 09:27; Admin Dose 2.5 MG; Start 11/07/18 at 12:00 Cholecalciferol (Vitamin D) 2,000 unit DAILY PO Last administered on 11/29/18 09:27; Admin Dose 2,000 UNIT; Start 11/08/18 at 09:00 Donepezil HCl (Aricept) 10 mg DAILY PO Last administered on 11/29/18 09:27; Admin Dose 10 MG; Start 11/08/18 at 09:00 Escitalopram Oxalate (Lexapro) 20 mg DAILY PO Last administered on 11/29/18 09:26; Admin Dose 20 MG; Start 11/08/18 at 09:00 EZETIMIBE (Zetia) 10 mg DAILY PO Last administered on 11/29/18 09:27; Admin Dose 10 MG; Start 11/08/18 at 09:00 Folic Acid (Folic Acid) 1 mg DAILY PO Last administered on 11/29/18 09:27; Admin Dose 1 MG; Start 11/08/18 at 09:00 Pantoprazole (Protonix Tab) 40 mg DAILY@06 PO Last administered on 11/29/18 05:54; Admin Dose 40 MG; Start 11/08/18 at 06:00 Levothyroxine Sodium (Synthroid) 25 mcg DAILY@0600 PO Last administered on 11/29/18 05:54; Admin Dose 25 MCG; Start 11/08/18 at 06:30 Ondansetron HCl (Zofran Inj) 4 mg Q6H PRN IV NAUSEA AND/OR VOMITING Last administered on 11/29/18 12:51; Admin Dose 4 MG; Start 11/08/18 at 10:30 Lorazepam (Ativan) 0.5 mg Q6H PRN PO ANXIETY Last administered on 11/28/18 20:38; Admin Dose 0.5 MG; Start 11/09/18 at 00:00 Psyllium Hydrophilic Mucilloid (Metamucil) 1 pkt DAILY PO Last administered on 11/29/18 09:26; Admin Dose 1 PKT; Start 11/10/18 at 09:00 Megestrol Acetate (Megace Susp) 400 mg BID PO Last administered on 11/28/18 20:38; Admin Dose 400 MG; Start 11/12/18 at 21:00 Zolpidem Tartrate (Ambien) 5 mg HS PRN PO INSOMNIA Last administered on 11/23/18 20:34; Admin Dose 5 MG; Start 11/23/18 at 18:00 Potassium Chloride (Klor-Con 20) 20 meq DAILY PO Last administered on 11/25/18 10:24; Admin Dose 20 MEQ; Start 11/25/18 at 09:00; Status Hold Dextrose/Sodium Chloride 1,000 ml @ 50 mls/hr Q20H IV Last administered on 11/26/18 18:00; Admin Dose 50 MLS/HR; Start 11/26/18 at 17:30 Metoprolol Succinate (Toprol Xl) 100 mg BID PO Last administered on 11/29/18 09:28; Admin Dose 100 MG; Start 11/28/18 at 21:00 Hydralazine HCl (Apresoline) 5 mg BID PO Last administered on 11/29/18 09:29; Admin Dose 5 MG; Start 11/28/18 at 21:00 Bumetanide (Bumex) 0.5 mg BID PO ; Start 11/29/18 at 13:30 Perico Mayers DO Nov 29, 2018 13:46
[2018-11-29] MEDS: BUMETANIDE 0.5 MG TAB PO SCH ×2 (13:54→20:32)
--- NOTE | 2018-11-29 17:56 | CONS ---
Assessment/Plan Assessment/Plan Assessment/Plan (Daily) ospital Course (Demo Recall) 83 yo female with N/V and diarrhea 1. Nausea, vomiting and diarrhea which have subsided now, most probably related to viral infection or of infectious etiology -resolved. 2. Atrial fibrillation for which she is on Eliquis. 3. Status post pacemaker insertion. 4. Dyslipidemia. 5. Hypothyroidism. 6. Hypertension. 7. Fatigue -likely due to depression -lexapro 8. Pedal edema pitting all the way up to knee, has reduced her drastically responded well to diuretics. 9. Coagulopathy may be due to cirrhosis of liver -improved -heme following 10. Abnormal LFT -patient CAT scan shows nodular liver which may be due to cirrhosis and also steatosis is playing a role -Hep panel unremarkable -LFTs wnl now 11. Thrombocytopenia -followed by Dr Ramsay 12. Liver cirrhosis noted in CT scan -HEARD? No methotrexate -hep panel unremarkable. -hepatic autoimmune panel unremarkable 13. Weakness, 14 poor oral intake patient family has declined EGD and colonoscopy at this point Plan Continue present care rheumatology follow-up patient is off methotrexate and is increased to her weakness Consultation Date/Type/Reason Admit Date/Time Nov 07, 2018 at 12:41 Initial Consult Date Requesting Provider: REJI KAUFFMAN MD Date/Time of Note DATE: 11/29/18 TIME: 17:54 24 HR Interval Summary Free Text/Dictation Patient complains of profound weakness unable to go to even to the bathroom Exam/Review of Systems Exam Vitals Vital Signs Date Temp Pulse Resp B/P (MAP) Pulse Ox O2 O2 Flow FiO2 Time Delivery Rate 11/29/18 98.0 18 125/79 97 15:49 (94) 11/29/18 99 11:26 11/29/18 Nasal 2.0 08:10 Cannula Intake and Output 11/28/18 11/28/18 11/29/18 1515:00 23:00 07:00 IntakeIntake Total 433 ml 100 ml 400 ml BalanceBalance 433 ml 100 ml 400 ml Constitutional: alert, oriented, well developed Neck: supple, non-tender Respiratory: clear to auscultation, normal air movement Cardiovascular: regular rate and rhythm Musculoskeletal: nl extremities to inspection, nl gait and stance Extremities: pitting pedal edema Results Result Diagram: 11/27/18 0539 11/29/18 1244 Results 24hrs Laboratory Tests Test 11/29/18 05:30 11/29/18 12:44 Thyroid Stimulating Hormone (TSH) 11.900 H Sodium Level 131 L Potassium Level 4.7 Chloride Level 97 Carbon Dioxide Level 20 L Anion Gap 14 H Blood Urea Nitrogen 46 H Creatinine 2.00 H Est Glomerular Filtrat Rate mL/min Glucose Level 99 Calcium Level 8.9 Medications Medication Current Medications Acetaminophen (Tylenol Tab) 650 mg Q6H PRN PO MILD PAIN(1-3)OR ELEVATED TEMP Last administered on 11/12/18 00:29; Admin Dose 650 MG; Start 11/07/18 at 10:00 Loperamide HCl (Imodium Cap) 2 mg QID PRN PO DIARRHEA Last administered on 11/09/18 02:45; Admin Dose 2 MG; Start 11/07/18 at 10:30 Amiodarone HCl (Cordarone) 100 mg DAILY PO Last administered on 11/29/18 09:28; Admin Dose 100 MG; Start 11/08/18 at 09:00 Apixaban (Eliquis) 2.5 mg BID PO Last administered on 11/29/18 09:27; Admin Dose 2.5 MG; Start 11/07/18 at 12:00 Cholecalciferol (Vitamin D) 2,000 unit DAILY PO Last administered on 11/29/18 09:27; Admin Dose 2,000 UNIT; Start 11/08/18 at 09:00 Donepezil HCl (Aricept) 10 mg DAILY PO Last administered on 11/29/18 09:27; Admin Dose 10 MG; Start 11/08/18 at 09:00 Escitalopram Oxalate (Lexapro) 20 mg DAILY PO Last administered on 11/29/18 09:26; Admin Dose 20 MG; Start 11/08/18 at 09:00 EZETIMIBE (Zetia) 10 mg DAILY PO Last administered on 11/29/18 09:27; Admin Dose 10 MG; Start 11/08/18 at 09:00 Folic Acid (Folic Acid) 1 mg DAILY PO Last administered on 11/29/18 09:27; Admin Dose 1 MG; Start 11/08/18 at 09:00 Pantoprazole (Protonix Tab) 40 mg DAILY@06 PO Last administered on 11/29/18 05:54; Admin Dose 40 MG; Start 11/08/18 at 06:00 Levothyroxine Sodium (Synthroid) 25 mcg DAILY@0600 PO Last administered on 11/29/18 05:54; Admin Dose 25 MCG; Start 11/08/18 at 06:30 Ondansetron HCl (Zofran Inj) 4 mg Q6H PRN IV NAUSEA AND/OR VOMITING Last administered on 11/29/18 12:51; Admin Dose 4 MG; Start 11/08/18 at 10:30 Lorazepam (Ativan) 0.5 mg Q6H PRN PO ANXIETY Last administered on 11/28/18 20:38; Admin Dose 0.5 MG; Start 11/09/18 at 00:00 Psyllium Hydrophilic Mucilloid (Metamucil) 1 pkt DAILY PO Last administered on 11/29/18 09:26; Admin Dose 1 PKT; Start 11/10/18 at 09:00 Megestrol Acetate (Megace Susp) 400 mg BID PO Last administered on 11/28/18 20:38; Admin Dose 400 MG; Start 11/12/18 at 21:00 Zolpidem Tartrate (Ambien) 5 mg HS PRN PO INSOMNIA Last administered on 11/23/18 20:34; Admin Dose 5 MG; Start 11/23/18 at 18:00 Potassium Chloride (Klor-Con 20) 20 meq DAILY PO Last administered on 11/25/18 10:24; Admin Dose 20 MEQ; Start 11/25/18 at 09:00; Status Hold Metoprolol Succinate (Toprol Xl) 100 mg BID PO Last administered on 11/29/18 09:28; Admin Dose 100 MG; Start 11/28/18 at 21:00 Hydralazine HCl (Apresoline) 5 mg BID PO Last administered on 11/29/18 09:29; Admin Dose 5 MG; Start 11/28/18 at 21:00 Bumetanide (Bumex) 0.5 mg BID PO Last administered on 11/29/18 13:54; Admin Dose 0.5 MG; Start 11/29/18 at 13:30 TONY SHETTY MD Nov 29, 2018 17:56
[2018-11-29] MEDS: LORAZEPAM 0.5 MG TAB PO PRN (20:38)
--- NOTE | 2018-11-29 20:43 | PN ---
Date/Time of Note Date/Time of Note DATE: 11/29/18 TIME: 20:43 Assessment/Plan VTE Prophylaxis Risk score (from Nsg)>0 risk: 6 SCD applied (from Nsg): Yes Pharmacological prophylaxis: apixaban Lines/Catheters IV Catheter Type (from Nrsg): Mid Line Central line still needed: Yes Urinary Cath still in place: No Assessment/Plan Hospital Course Patient with generalized edema, complains of poor appetite and weakness, patient restarted on Bumex p.o., on appetite stimulant. Patient was able to ambulate with PT. Anticipate discharge home with home health services when patient is euvolemic and cleared by consultants for DC. Assessment/Plan -Left foot cellulitis,resolved. s/p Ancef. -Acute decompensated systolic and diastolic congestive heart failure. -Nonoliguric acute kidney injury on top of chronic kidney disease stage III. Dr. Juárez is following in nephrology consultation. -Coagulopathy most likely to liver cirrhosis and vitamin K deficiency, status post vitamin K, improved. Dr. Ramsay is following in hematology consultation. -Atrial fibrillation with initially rapid ventricular rates, improved, continue metoprolol. Dr Mayers is following in cardiology consultation. -Nausea vomiting and diarrhea for 2 days, resolved. Dr. Merchant is following in gastroenterology consultation. -Colitis per CT scan. S/p Levaquin and Flagyl. 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 Patient unable to undergo MRI due to pacemaker. Dr. Duque is following and podiatry consultation. -Hypertension, continue metoprolol Norvasc and Cozaar -PPM -Hypothyroidism, continue levothyroxine. -Rheumatoid arthritis, Dr Grant is following in rheumatology consultation. Further recommendations based on clinical course. Plan of care discussed with Dr. Rayo. Result Diagram: 11/27/18 0539 11/29/18 1244 Results 24hrs Laboratory Tests Test 11/29/18 05:30 11/29/18 12:44 Thyroid Stimulating Hormone (TSH) 11.900 H Sodium Level 131 L Potassium Level 4.7 Chloride Level 97 Carbon Dioxide Level 20 L Anion Gap 14 H Blood Urea Nitrogen 46 H Creatinine 2.00 H Est Glomerular Filtrat Rate mL/min Glucose Level 99 Calcium Level 8.9 Exam/Review of Systems Exam Vitals Vital Signs Date Temp Pulse Resp B/P (MAP) Pulse Ox O2 O2 Flow FiO2 Time Delivery Rate 11/29/18 97.6 84 18 140/69 100 20:00 (92) 11/29/18 Nasal 2.0 08:10 Cannula Intake and Output 11/28/18 11/28/18 11/29/18 1515:00 23:00 07:00 IntakeIntake Total 433 ml 100 ml 400 ml BalanceBalance 433 ml 100 ml 400 ml Exam Constitutional: alert, oriented Respiratory: clear to auscultation Cardiovascular: irregular rhythm, other (L chest PPM) Gastrointestinal: soft, non-tender Musculoskeletal: nl extremities to inspection Extremities: normal pulses Neurological: nl mental status Results Results 24hrs Laboratory Tests Test 11/29/18 05:30 11/29/18 12:44 Thyroid Stimulating Hormone (TSH) 11.900 H Sodium Level 131 L Potassium Level 4.7 Chloride Level 97 Carbon Dioxide Level 20 L Anion Gap 14 H Blood Urea Nitrogen 46 H Creatinine 2.00 H Est Glomerular Filtrat Rate mL/min Glucose Level 99 Calcium Level 8.9 Medications Medication Current Medications Acetaminophen (Tylenol Tab) 650 mg Q6H PRN PO MILD PAIN(1-3)OR ELEVATED TEMP Last administered on 11/12/18 00:29; Admin Dose 650 MG; Start 11/07/18 at 10:00 Loperamide HCl (Imodium Cap) 2 mg QID PRN PO DIARRHEA Last administered on 11/09/18 02:45; Admin Dose 2 MG; Start 11/07/18 at 10:30 Amiodarone HCl (Cordarone) 100 mg DAILY PO Last administered on 11/29/18at 09:28; Admin Dose 100 MG; Start 11/08/18 at 09:00 Apixaban (Eliquis) 2.5 mg BID PO Last administered on 11/29/18at 20:32; Admin Dose 2.5 MG; Start 11/07/18 at 12:00 Cholecalciferol (Vitamin D) 2,000 unit DAILY PO Last administered on 11/29/18 09:27; Admin Dose 2,000 UNIT; Start 11/08/18 at 09:00 Donepezil HCl (Aricept) 10 mg DAILY PO Last administered on 11/29/18 09:27; Admin Dose 10 MG; Start 11/08/18 at 09:00 Escitalopram Oxalate (Lexapro) 20 mg DAILY PO Last administered on 11/29/18 09:26; Admin Dose 20 MG; Start 11/08/18 at 09:00 EZETIMIBE (Zetia) 10 mg DAILY PO Last administered on 11/29/18 09:27; Admin Dose 10 MG; Start 11/08/18 at 09:00 Folic Acid (Folic Acid) 1 mg DAILY PO Last administered on 11/29/18 09:27; Admin Dose 1 MG; Start 11/08/18 at 09:00 Pantoprazole (Protonix Tab) 40 mg DAILY@06 PO Last administered on 11/29/18 05:54; Admin Dose 40 MG; Start 11/08/18 at 06:00 Levothyroxine Sodium (Synthroid) 25 mcg DAILY@0600 PO Last administered on 11/29/18 05:54; Admin Dose 25 MCG; Start 11/08/18 at 06:30 Ondansetron HCl (Zofran Inj) 4 mg Q6H PRN IV NAUSEA AND/OR VOMITING Last administered on 11/29/18 12:51; Admin Dose 4 MG; Start 11/08/18 at 10:30 Lorazepam (Ativan) 0.5 mg Q6H PRN PO ANXIETY Last administered on 11/29/18 20:38; Admin Dose 0.5 MG; Start 11/09/18 at 00:00 Psyllium Hydrophilic Mucilloid (Metamucil) 1 pkt DAILY PO Last administered on 11/29/18 09:26; Admin Dose 1 PKT; Start 11/10/18 at 09:00 Megestrol Acetate (Megace Susp) 400 mg BID PO Last administered on 11/29/18 20:32; Admin Dose 400 MG; Start 11/12/18 at 21:00 Zolpidem Tartrate (Ambien) 5 mg HS PRN PO INSOMNIA Last administered on 11/23/18 20:34; Admin Dose 5 MG; Start 11/23/18 at 18:00 Potassium Chloride (Klor-Con 20) 20 meq DAILY PO Last administered on 11/25/18 10:24; Admin Dose 20 MEQ; Start 11/25/18 at 09:00; Status Hold Metoprolol Succinate (Toprol Xl) 100 mg BID PO Last administered on 11/29/18 20:32; Admin Dose 100 MG; Start 11/28/18 at 21:00 Hydralazine HCl (Apresoline) 5 mg BID PO Last administered on 11/29/18 20:33; Admin Dose 5 MG; Start 11/28/18 at 21:00 Bumetanide (Bumex) 0.5 mg BID PO Last administered on 11/29/18 20:32; Admin Dose 0.5 MG; Start 11/29/18 at 13:30 OSCAR GAYTAN Nov 29, 2018 20:43
[2018-11-30] VITALS: BP 142/62; PULSE 94; RESP 18
[2018-11-30 04:00] VITALS: BP 144/72; PULSE 87; RESP 20
[2018-11-30] MEDS: PANTOPRAZOLE (EC) 40 MG TAB PO SCH (05:41)
[2018-11-30] MEDS: LEVOTHYROXINE 25 MCG TAB PO SCH (05:41)
--- NOTE | 2018-11-30 07:36 | CONS ---
Assessment/Plan Assessment/Plan Assessment/Plan (Daily) 1. Nonoliguric acute kidney injury on top of chronic kidney disease stage III. Etiology of acute kidney injury is secondary to hemodynamics. pt did not respond well to PO bumex Still cr 1.87, BNP 56424, Uric acid 11, still 3+ pitting edema, will give bumex 1 mg/hr x 12 hr for 3 days in a row allopurinol 100mg BID for hyperuricemia 2. Acute systolic, diastolic heart failure. The patient appears compensated. Continue to monitor renal function closely.- Bumex has been on hold( 1mg po daily ) 3. Hypokalemia, improved. 4. Hypernatremia, improved. 5. Mineral bone disorder. Monitor calcium and phosphorus levels. 6. Atrial fibrillation. Continue medical management., on Eliquis for antico agulation 7. Possible colitis. The patient is completing antibiotic course. 8. Rheumatoid arthritis. Continue to monitor. Consultation Date/Type/Reason Admit Date/Time Nov 07, 2018 at 12:41 Initial Consult Date 11/09/18 Type of Consult NEPHROLOGY Requesting Provider: REJI KAUFFMAN MD Date/Time of Note DATE: 11/30/18 TIME: 07:36 24 HR Interval Summary Free Text/Dictation pt did not respond well to PO bumex Still cr 1.87, BNP 80120, Uric acid 11 Exam/Review of Systems Exam Vitals Vital Signs Date Temp Pulse Resp B/P (MAP) Pulse Ox O2 O2 Flow FiO2 Time Delivery Rate 11/30/18 97.9 87 20 144/72 100 04:00 (96) 11/29/18 Nasal 2.0 20:45 Cannula Intake and Output 11/29/18 11/29/18 11/30/18 1515:00 23:00 07:00 IntakeIntake Total 360 ml 120 ml BalanceBalance 360 ml 120 ml Exam Constitutional: No distress Neck: + JVD, no LAD Respiratory: bibasilar crackles Cardiovascular: regular rate and rhythm, irregular rhythm Gastrointestinal: soft, non-tender, bowel sounds Extremities: 3+ LE pitting edema, hand swelling +, back swelling + Skin: nl turgor Results Result Diagram: 11/27/18 0539 11/30/18 0551 Results 24hrs Laboratory Tests Test 11/29/18 12:44 11/30/18 05:51 Sodium Level 131 L 133 L Potassium Level 4.7 4.1 Chloride Level 97 100 Carbon Dioxide Level 20 L 22 Anion Gap 14 H 11 Blood Urea Nitrogen 46 H 47 H Creatinine 2.00 H 1.87 H Est Glomerular Filtrat Rate mL/min Glucose Level 99 130 Calcium Level 8.9 8.3 L Uric Acid 11.9 H B-Type Natriuretic Peptide 90417 H Medications Medication Current Medications Acetaminophen (Tylenol Tab) 650 mg Q6H PRN PO MILD PAIN(1-3)OR ELEVATED TEMP Last administered on 11/12/18 00:29; Admin Dose 650 MG; Start 11/07/18 at 10:00 Loperamide HCl (Imodium Cap) 2 mg QID PRN PO DIARRHEA Last administered on 11/09/18 02:45; Admin Dose 2 MG; Start 11/07/18 at 10:30 Amiodarone HCl (Cordarone) 100 mg DAILY PO Last administered on 11/29/18 09:28; Admin Dose 100 MG; Start 11/08/18 at 09:00 Apixaban (Eliquis) 2.5 mg BID PO Last administered on 11/29/18 20:32; Admin Dose 2.5 MG; Start 11/07/18 at 12:00 Cholecalciferol (Vitamin D) 2,000 unit DAILY PO Last administered on 11/29/18 09:27; Admin Dose 2,000 UNIT; Start 11/08/18 at 09:00 Donepezil HCl (Aricept) 10 mg DAILY PO Last administered on 11/29/18 09:27; Admin Dose 10 MG; Start 11/08/18 at 09:00 Escitalopram Oxalate (Lexapro) 20 mg DAILY PO Last administered on 11/29/18 09:26; Admin Dose 20 MG; Start 11/08/18 at 09:00 EZETIMIBE (Zetia) 10 mg DAILY PO Last administered on 11/29/18 09:27; Admin Dose 10 MG; Start 11/08/18 at 09:00 Folic Acid (Folic Acid) 1 mg DAILY PO Last administered on 11/29/18 09:27; Admin Dose 1 MG; Start 11/08/18 at 09:00 Pantoprazole (Protonix Tab) 40 mg DAILY@06 PO Last administered on 11/30/18 05:41; Admin Dose 40 MG; Start 11/08/18 at 06:00 Levothyroxine Sodium (Synthroid) 25 mcg DAILY@0600 PO Last administered on 11/30/18 05:41; Admin Dose 25 MCG; Start 11/08/18 at 06:30 Ondansetron HCl (Zofran Inj) 4 mg Q6H PRN IV NAUSEA AND/OR VOMITING Last admini stered on 11/29/18 12:51; Admin Dose 4 MG; Start 11/08/18 at 10:30 Lorazepam (Ativan) 0.5 mg Q6H PRN PO ANXIETY Last administered on 11/29/18 20:38; Admin Dose 0.5 MG; Start 11/09/18 at 00:00 Psyllium Hydrophilic Mucilloid (Metamucil) 1 pkt DAILY PO Last administered on 11/29/18 09:26; Admin Dose 1 PKT; Start 11/10/18 at 09:00 Megestrol Acetate (Megace Susp) 400 mg BID PO Last administered on 11/29/18 20:32; Admin Dose 400 MG; Start 11/12/18 at 21:00 Zolpidem Tartrate (Ambien) 5 mg HS PRN PO INSOMNIA Last administered on 11/23/18 20:34; Admin Dose 5 MG; Start 11/23/18 at 18:00 Potassium Chloride (Klor-Con 20) 20 meq DAILY PO Last administered on 11/25/18 10:24; Admin Dose 20 MEQ; Start 11/25/18 at 09:00; Status Hold Metoprolol Succinate (Toprol Xl) 100 mg BID PO Last administered on 11/29/18 20:32; Admin Dose 100 MG; Start 11/28/18 at 21:00 Hydralazine HCl (Apresoline) 5 mg BID PO Last administered on 11/29/18 20:33; Admin Dose 5 MG; Start 11/28/18 at 21:00 Bumetanide 12 mg/ Dextrose/Water 120 ml @ 10 mls/hr Q12H ONCE IV ; Start 11/30/18 at 09:00; Stop 11/30/18 at 20:59 Allopurinol (Zyloprim) 100 mg BID PO ; Start 11/30/18 at 09:00 BEATRIZ PLEITEZ MD Nov 30, 2018 07:36
[2018-11-30 07:40] VITALS: BP 133/76; PULSE 94; RESP 22
[2018-11-30] MEDS: EZETIMIBE 10 MG TAB PO SCH (08:48)
[2018-11-30] MEDS: CHOLECALCIFEROL 2,000 UNIT CAP PO SCH (08:48)
[2018-11-30] MEDS: ESCITALOPRAM 10 MG TAB PO SCH (08:49)
[2018-11-30] MEDS: PSYLLIUM 28% PACKET PO SCH (08:49)
[2018-11-30] MEDS: FOLIC ACID 1 MG TAB PO SCH (08:49)
[2018-11-30] MEDS: DONEPEZIL 10 MG TAB PO SCH (08:50)
[2018-11-30] MEDS: METOPROLOL (XL) 100 MG TAB PO SCH ×2 (08:50→20:32)
[2018-11-30] MEDS: MEGESTROL (40 MG/ML) 10ML CUP PO SCH (08:51)
[2018-11-30] MEDS: ALLOPURINOL 100 MG TAB PO SCH ×2 (08:56→20:32)
[2018-11-30] MEDS: APIXABAN 5 MG TABLET PO SCH ×2 (08:57→20:32)
[2018-11-30] MEDS: AMIODARONE 200 MG TAB PO SCH (08:57)
[2018-11-30] MEDS ORDERED: BUMETANIDE 12 MG in DEXTROSE 5% 72 ML IV ONE (09:00)
--- NOTE | 2018-11-30 09:33 | PN ---
Date/Time of Note Date/Time of Note DATE: 11/30/18 TIME: 09:33 Assessment/Plan VTE Prophylaxis Risk score (from Ns)>0 risk: 9 SCD applied (from [facility]): Yes SCD contraindicated: other Pharmacological prophylaxis: other Pharm contraindication: other Lines/Catheters IV Catheter Type (from [facility] Mid Line Central line still needed: Yes Urinary Cath still in place: No Assessment/Plan Assessment/Plan -Left foot cellulitis,resolved. s/p Ancef. -Acute decompensated systolic and diastolic congestive heart failure. -Nonoliguric acute kidney injury on top of chronic kidney disease stage III. Dr. Juárez is following in nephrology consultation. -Coagulopathy most likely to liver cirrhosis and vitamin K deficiency, status post vitamin K, improved. Dr. Ramsay is following in hematology consultation. -Atrial fibrillation with initially rapid ventricular rates, improved, continue metoprolol. Dr Mayers is following in cardiology consultation. -Nausea vomiting and diarrhea for 2 days, resolved. Dr. Merchant is following in gastroenterology consultation. -Colitis per CT scan. S/p Levaquin and Flagyl. 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 Patient unable to undergo MRI due to pacemaker. Dr. Duque is following and podiatry consultation. -Hypertension, continue metoprolol Norvasc and Cozaar -PPM -Hypothyroidism, continue levothyroxine. -Rheumatoid arthritis, Dr Grant is following in rheumatology consultation. Further recommendations based on clinical course. Plan of care discussed with Dr. Rayo. Result Diagram: 11/27/18 0539 11/30/18 0551 Results 24hrs Laboratory Tests Test 11/29/18 12:44 11/30/18 05:51 Sodium Level 131 L 133 L Potassium Level 4.7 4.1 Chloride Level 97 100 Carbon Dioxide Level 20 L 22 Anion Gap 14 H 11 Blood Urea Nitrogen 46 H 47 H Creatinine 2.00 H 1.87 H Est Glomerular Filtrat Rate mL/min Glucose Level 99 130 Calcium Level 8.9 8.3 L Uric Acid 11.9 H B-Type Natriuretic Peptide 77113 H Subjective 24 Hr Interval Summary Free Text/Dictation Resting; c/o general weakness; denies any chest pain afebrile Cr trended up today daughter at bed side- all Qs answered Acute Rehab - denied; patient is able to ambulate in the hallways no new events reported last night dw staff Constitutional: requiring O2 ENT: no complaints Respiratory: no complaints Cardiovascular: no complaints Genitourinary: no complaints Musculoskeletal: no complaints Skin: no complaints Neurologic: no complaints Endocrine: no complaints Psychological: nl mood/affect Exam/Review of Systems Exam Vitals Vital Signs Date Temp Pulse Resp B/P (MAP) Pulse Ox O2 O2 Flow FiO2 Time Delivery Rate 11/30/18 97.8 94 22 133/76 96 Room Air 07:40 (95) 11/29/18 2.0 20:45 Intake and Output 11/29/18 11/29/18 11/30/18 1515:00 23:00 07:00 IntakeIntake Total 360 ml 120 ml BalanceBalance 360 ml 120 ml Results Results 24hrs Laboratory Tests Test 11/29/18 12:44 11/30/18 05:51 Sodium Level 131 L 133 L Potassium Level 4.7 4.1 Chloride Level 97 100 Carbon Dioxide Level 20 L 22 Anion Gap 14 H 11 Blood Urea Nitrogen 46 H 47 H Creatinine 2.00 H 1.87 H Est Glomerular Filtrat Rate mL/min Glucose Level 99 130 Calcium Level 8.9 8.3 L Uric Acid 11.9 H B-Type Natriuretic Peptide 60483 H Medications Medication Current Medications Acetaminophen (Tylenol Tab) 650 mg Q6H PRN PO MILD PAIN(1-3)OR ELEVATED TEMP Last administered on 11/12/18 00:29; Admin Dose 650 MG; Start 11/07/18 at 10:00 Loperamide HCl (Imodium Cap) 2 mg QID PRN PO DIARRHEA Last administered on 11/09/18at 02:45; Admin Dose 2 MG; Start 11/07/18 at 10:30 Amiodarone HCl (Cordarone) 100 mg DAILY PO Last administered on 11/30/18 08:57; Admin Dose 100 MG; Start 11/08/18 at 09:00 Apixaban (Eliquis) 2.5 mg BID PO Last administered on 11/30/18 08:57; Admin Dose 2.5 MG; Start 11/07/18 at 12:00 Cholecalciferol (Vitamin D) 2,000 unit DAILY PO Last administered on 11/30/18 08:48; Admin Dose 2,000 UNIT; Start 11/08/18 at 09:00 Donepezil HCl (Aricept) 10 mg DAILY PO Last administered on 11/30/18 08:50; Admin Dose 10 MG; Start 11/08/18 at 09:00 Escitalopram Oxalate (Lexapro) 20 mg DAILY PO Last administered on 11/30/18 08:49; Admin Dose 20 MG; Start 11/08/18 at 09:00 EZETIMIBE (Zetia) 10 mg DAILY PO Last administered on 11/30/18 08:48; Admin Dose 10 MG; Start 11/08/18 at 09:00 Folic Acid (Folic Acid) 1 mg DAILY PO Last administered on 11/30/18 08:49; Admin Dose 1 MG; Start 11/08/18 at 09:00 Pantoprazole (Protonix Tab) 40 mg DAILY@06 PO Last administered on 11/30/18 05:41; Admin Dose 40 MG; Start 11/08/18 at 06:00 Levothyroxine Sodium (Synthroid) 25 mcg DAILY@0600 PO Last administered on 11/30/18 05:41; Admin Dose 25 MCG; Start 11/08/18 at 06:30 Ondansetron HCl (Zofran Inj) 4 mg Q6H PRN IV NAUSEA AND/OR VOMITING Last administered on 11/29/18 12:51; Admin Dose 4 MG; Start 11/08/18 at 10:30 Lorazepam (Ativan) 0.5 mg Q6H PRN PO ANXIETY Last administered on 11/29/18 20:38; Admin Dose 0.5 MG; Start 11/09/18 at 00:00 Psyllium Hydrophilic Mucilloid (Metamucil) 1 pkt DAILY PO Last administered on 11/30/18 08:49; Admin Dose 1 PKT; Start 11/10/18 at 09:00 Megestrol Acetate (Megace Susp) 400 mg BID PO Last administered on 11/30/18 08:51; Admin Dose 400 MG; Start 11/12/18 at 21:00 Zolpidem Tartrate (Ambien) 5 mg HS PRN PO INSOMNIA Last administered on 11/23/18 20:34; Admin Dose 5 MG; Start 11/23/18 at 18:00 Potassium Chloride (Klor-Con 20) 20 meq DAILY PO Last administered on 11/25/18 10:24; Admin Dose 20 MEQ; Start 11/25/18 at 09:00; Status Hold Metoprolol Succinate (Toprol Xl) 100 mg BID PO Last administered on 11/30/18 08:50; Admin Dose 100 MG; Start 11/28/18 at 21:00 Hydralazine HCl (Apresoline) 5 mg BID PO Last administered on 11/30/18 08:51; Admin Dose 5 MG; Start 11/28/18 at 21:00 Bumetanide 12 mg/ Dextrose/Water 120 ml @ 10 mls/hr Q12H ONCE IV Last administered on 11/30/18 08:48; Admin Dose 10 MLS/HR; Start 11/30/18 at 09:00; Stop 11/30/18 at 20:59 Allopurinol (Zyloprim) 100 mg BID PO Last administered on 11/30/18 08:56; Admin Dose 100 MG; Start 11/30/18 at 09:00 HOMERO ISAACS Nov 30, 2018 09:33
--- NOTE | 2018-11-30 11:20 | CONS ---
Assessment/Plan Assessment/Plan Assessment/Plan (Daily) 83 yo female with N/V and diarrhea 1. Nausea, vomiting and diarrhea which have subsided now, most probably related to viral infection or of infectious etiology -resolved. 2. Atrial fibrillation for which she is on Eliquis. 3. Status post pacemaker insertion. 4. Dyslipidemia. 5. Hypothyroidism. 6. Hypertension. 7. Fatigue -likely due to depression -lexapro 8. Pedal edema pitting all the way up to knee, has reduced her drastically responded well to diuretics. 9. Coagulopathy may be due to cirrhosis of liver -improved -heme following 10. Abnormal LFT -patient CAT scan shows nodular liver which may be due to cirrhosis and also steatosis is playing a role -Hep panel unremarkable -LFTs wnl now 11. Thrombocytopenia -followed by Dr Ramsay 12. Liver cirrhosis noted in CT scan -HEARD? No methotrexate -hep panel unremarkable. -hepatic autoimmune panel unremarkable 13. Weakness, 14 poor oral intake patient family has declined EGD and colonoscopy at this point Plan Continue present care rheumatology follow-up Consultation Date/Type/Reason Admit Date/Time Nov 07, 2018 at 12:41 Initial Consult Date Requesting Provider: REJI KAUFFMAN MD Date/Time of Note DATE: 11/30/18 TIME: 11:19 24 HR Interval Summary Free Text/Dictation No abdominal pain no nausea no vomiting. Patient was able to ambulate today Exam/Review of Systems Exam Vitals Vital Signs Date Temp Pulse Resp B/P (MAP) Pulse Ox O2 O2 Flow FiO2 Time Delivery Rate 11/30/18 Nasal 2.0 08:00 Cannula 11/30/18 97.8 94 22 133/76 96 07:40 (95) Intake and Output 11/29/18 11/29/18 11/30/18 1515:00 23:00 07:00 IntakeIntake Total 360 ml 120 ml BalanceBalance 360 ml 120 ml Constitutional: alert, oriented, well developed Psych: no complaints, nl mood/affect Head: normocephalic, atraumatic Eyes: nl conjunctiva, EOMI, nl lids, nl sclera, PERRL ENMT: nl external ears & nose, nl lips & teeth, nl nasal mucosa & septum Neck: supple, non-tender Respiratory: clear to auscultation, normal air movement Cardiovascular: regular rate and rhythm, nl pulses Gastrointestinal: soft, nl liver, spleen, non-tender Musculoskeletal: nl extremities to inspection, nl gait and stance Extremities: normal pulses Neurological: [employer] II-XII intact, nl mental status, nl speech, nl strength Skin: nl turgor; No rash or lesions Lymph: nl lymph nodes Results Result Diagram: 11/27/18 0539 11/30/18 0551 Results 24hrs Laboratory Tests Test 11/29/18 12:44 11/30/18 05:51 Sodium Level 131 L 133 L Potassium Level 4.7 4.1 Chloride Level 97 100 Carbon Dioxide Level 20 L 22 Anion Gap 14 H 11 Blood Urea Nitrogen 46 H 47 H Creatinine 2.00 H 1.87 H Est Glomerular Filtrat Rate mL/min Glucose Level 99 130 Calcium Level 8.9 8.3 L Uric Acid 11.9 H B-Type Natriuretic Peptide 90556 H Medications Medication Current Medications Acetaminophen (Tylenol Tab) 650 mg Q6H PRN PO MILD PAIN(1-3)OR ELEVATED TEMP Last administered on 11/12/18at 00:29; Admin Dose 650 MG; Start 11/07/18 at 10:00 Loperamide HCl (Imodium Cap) 2 mg QID PRN PO DIARRHEA Last administered on 11/09/18at 02:45; Admin Dose 2 MG; Start 11/07/18 at 10:30 Amiodarone HCl (Cordarone) 100 mg DAILY PO Last administered on 11/30/18 08:57; Admin Dose 100 MG; Start 11/08/18 at 09:00 Apixaban (Eliquis) 2.5 mg BID PO Last administered on 11/30/18 08:57; Admin Dose 2.5 MG; Start 11/07/18 at 12:00 Cholecalciferol (Vitamin D) 2,000 unit DAILY PO Last administered on 11/30/18 08:48; Admin Dose 2,000 UNIT; Start 11/08/18 at 09:00 Donepezil HCl (Aricept) 10 mg DAILY PO Last administered on 11/30/18at 08:50; Admin Dose 10 MG; Start 11/08/18 at 09:00 Escitalopram Oxalate (Lexapro) 20 mg DAILY PO Last administered on 11/30/18at 08:49; Admin Dose 20 MG; Start 11/08/18 at 09:00 EZETIMIBE (Zetia) 10 mg DAILY PO Last administered on 11/30/18 08:48; Admin Dose 10 MG; Start 11/08/18 at 09:00 Folic Acid (Folic Acid) 1 mg DAILY PO Last administered on 11/30/18 08:49; Ad min Dose 1 MG; Start 11/08/18 at 09:00 Pantoprazole (Protonix Tab) 40 mg DAILY@06 PO Last administered on 11/30/18 05:41; Admin Dose 40 MG; Start 11/08/18 at 06:00 Levothyroxine Sodium (Synthroid) 25 mcg DAILY@0600 PO Last administered on 11/30/18 05:41; Admin Dose 25 MCG; Start 11/08/18 at 06:30 Ondansetron HCl (Zofran Inj) 4 mg Q6H PRN IV NAUSEA AND/OR VOMITING Last administered on 11/29/18 12:51; Admin Dose 4 MG; Start 11/08/18 at 10:30 Lorazepam (Ativan) 0.5 mg Q6H PRN PO ANXIETY Last administered on 11/29/18 20:38; Admin Dose 0.5 MG; Start 11/09/18 at 00:00 Psyllium Hydrophilic Mucilloid (Metamucil) 1 pkt DAILY PO Last administered on 11/30/18 08:49; Admin Dose 1 PKT; Start 11/10/18 at 09:00 Megestrol Acetate (Megace Susp) 400 mg BID PO Last administered on 11/30/18 08:51; Admin Dose 400 MG; Start 11/12/18 at 21:00 Zolpidem Tartrate (Ambien) 5 mg HS PRN PO INSOMNIA Last administered on 11/23/18 20:34; Admin Dose 5 MG; Start 11/23/18 at 18:00 Potassium Chloride (Klor-Con 20) 20 meq DAILY PO Last administered on 11/25/18 10:24; Admin Dose 20 MEQ; Start 11/25/18 at 09:00; Status Hold Metoprolol Succinate (Toprol Xl) 100 mg BID PO Last administered on 11/30/18 08:50; Admin Dose 100 MG; Start 11/28/18 at 21:00 Hydralazine HCl (Apresoline) 5 mg BID PO Last administered on 11/30/18 08:51; Admin Dose 5 MG; Start 11/28/18 at 21:00 Bumetanide 12 mg/ Dextrose/Water 120 ml @ 10 mls/hr Q12H ONCE IV Last administered on 11/30/18at 08:48; Admin Dose 10 MLS/HR; Start 11/30/18 at 09:00; Stop 11/30/18 at 20:59 Allopurinol (Zyloprim) 100 mg BID PO Last administered on 11/30/18at 08:56; Admin Dose 100 MG; Start 11/30/18 at 09:00 TONY SHETTY MD Nov 30, 2018 11:20
[2018-11-30 11:37] VITALS: BP 134/62; PULSE 69; RESP 22
--- NOTE | 2018-11-30 12:18 | CONS ---
Assessment/Plan Cardiology NYHA: III Heart Failure Type: Acute on Chronic Heart Failure Type: Both Assessment/Plan Hospital Course (Demo Recall) Atrial fibrillation with initially rapid ventricular rates, improved Nausea, vomiting-resolved Acute decompensated systolic and diastolic congestive heart failure Acute kidney injury Mitral and tricuspid valve regurgitation Possible colitis Hypertension Dyslipidemia History of pacemaker Heart rate trend overall stable, continue current dose of beta-carine Titrate hydralazine as blood pressure permits Continue anticoagulation if no contraindication Diuretics being adjusted by nephrology Consultation Date/Type/Reason Admit Date/Time Nov 07, 2018 at 12:41 Initial Consult Date Type of Consult Cardiology Requesting Provider: REJI KAUFFMAN MD Date/Time of Note DATE: 11/30/18 TIME: 12:16 24 HR Interval Summary Free Text/Dictation As per family, swelling is the same. No shortness of breath. Complaining of fatigue Exam/Review of Systems Vital Signs Vitals Vital Signs Date Temp Pulse Resp B/P (MAP) Pulse Ox O2 O2 Flow FiO2 Time Delivery Rate 11/30/18 97.8 69 22 134/62 96 Room Air 11:37 (86) 11/30/18 2.0 08:00 Intake and Output 11/29/18 11/29/18 11/30/18 1515:00 23:00 07:00 IntakeIntake Total 360 ml 120 ml BalanceBalance 360 ml 120 ml Exam Exam Sleeping but arousable, family at bedside, no apparent distress Head: normocephalic Respiratory: other (Coarse breath sounds bilaterally, no wheezing) Cardiovascular: regular rate and rhythm (Occasional irregularities), systolic murmur Gastrointestinal: soft, non-tender, bowel sounds Extremities: edema Labs Result Diagram: 11/27/18 0539 11/30/18 0551 Results 24hrs Laboratory Tests Test 11/29/18 12:44 11/30/18 05:51 Sodium Level 131 L 133 L Potassium Level 4.7 4.1 Chloride Level 97 100 Carbon Dioxide Level 20 L 22 Anion Gap 14 H 11 Blood Urea Nitrogen 46 H 47 H Creatinine 2.00 H 1.87 H Est Glomerular Filtrat Rate mL/min Glucose Level 99 130 Calcium Level 8.9 8.3 L Uric Acid 11.9 H B-Type Natriuretic Peptide 54454 H Medications Medications Current Medications Acetaminophen (Tylenol Tab) 650 mg Q6H PRN PO MILD PAIN(1-3)OR ELEVATED TEMP Last administered on 11/12/18 00:29; Admin Dose 650 MG; Start 11/07/18 at 10:00 Loperamide HCl (Imodium Cap) 2 mg QID PRN PO DIARRHEA Last administered on 11/09/18 02:45; Admin Dose 2 MG; Start 11/07/18 at 10:30 Amiodarone HCl (Cordarone) 100 mg DAILY PO Last administered on 11/30/18 08:57; Admin Dose 100 MG; Start 11/08/18 at 09:00 Apixaban (Eliquis) 2.5 mg BID PO Last administered on 11/30/18 08:57; Admin Dose 2.5 MG; Start 11/07/18 at 12:00 Cholecalciferol (Vitamin D) 2,000 unit DAILY PO Last administered on 11/30/18 08:48; Admin Dose 2,000 UNIT; Start 11/08/18 at 09:00 Donepezil HCl (Aricept) 10 mg DAILY PO Last administered on 11/30/18 08:50; Admin Dose 10 MG; Start 11/08/18 at 09:00 Escitalopram Oxalate (Lexapro) 20 mg DAILY PO Last administered on 11/30/18 08:49; Admin Dose 20 MG; Start 11/08/18 at 09:00 EZETIMIBE (Zetia) 10 mg DAILY PO Last administered on 11/30/18 08:48; Admin Dose 10 MG; Start 11/08/18 at 09:00 Folic Acid (Folic Acid) 1 mg DAILY PO Last administered on 11/30/18 08:49; Admin Dose 1 MG; Start 11/08/18 at 09:00 Pantoprazole (Protonix Tab) 40 mg DAILY@06 PO Last administered on 11/30/18 05 :41; Admin Dose 40 MG; Start 11/08/18 at 06:00 Levothyroxine Sodium (Synthroid) 25 mcg DAILY@0600 PO Last administered on 11/30/18 05:41; Admin Dose 25 MCG; Start 11/08/18 at 06:30 Ondansetron HCl (Zofran Inj) 4 mg Q6H PRN IV NAUSEA AND/OR VOMITING Last administered on 11/29/18 12:51; Admin Dose 4 MG; Start 11/08/18 at 10:30 Lorazepam (Ativan) 0.5 mg Q6H PRN PO ANXIETY Last administered on 11/29/18 20:38; Admin Dose 0.5 MG; Start 11/09/18 at 00:00 Psyllium Hydrophilic Mucilloid (Metamucil) 1 pkt DAILY PO Last administered on 11/30/18 08:49; Admin Dose 1 PKT; Start 11/10/18 at 09:00 Megestrol Acetate (Megace Susp) 400 mg BID PO Last administered on 11/30/18 08:51; Admin Dose 400 MG; Start 11/12/18 at 21:00 Zolpidem Tartrate (Ambien) 5 mg HS PRN PO INSOMNIA Last administered on 11/23/18 at 20:34; Admin Dose 5 MG; Start 11/23/18 at 18:00 Potassium Chloride (Klor-Con 20) 20 meq DAILY PO Last administered on 11/25/18 10:24; Admin Dose 20 MEQ; Start 11/25/18 at 09:00; Status Hold Metoprolol Succinate (Toprol Xl) 100 mg BID PO Last administered on 11/30/18 08:50; Admin Dose 100 MG; Start 11/28/18 at 21:00 Hydralazine HCl (Apresoline) 5 mg BID PO Last administered on 11/30/18 08:51; Admin Dose 5 MG; Start 11/28/18 at 21:00 Bumetanide 12 mg/ Dextrose/Water 120 ml @ 10 mls/hr Q12H ONCE IV Last administered on 11/30/18 08:48; Admin Dose 10 MLS/HR; Start 11/30/18 at 09:00; Stop 11/30/18 at 20:59 Allopurinol (Zyloprim) 100 mg BID PO Last administered on 11/30/18 08:56; Adm in Dose 100 MG; Start 11/30/18 at 09:00 Perico Mayers DO Nov 30, 2018 12:18
--- NOTE | 2018-11-30 13:25 | CONS ---
Assessment/Plan Assessment/Plan Hospital Course (Demo Recall) #Coagulopathy -pt is noted to have an elevated PT (26sec) and PTT(35 sec). Today patient;s PTT is within normal limits. PT mixing study corrected. This essentially rules out a factor inhibitor. This makes the most likely cause of her coagulopathy her underlying cirrhosis and Vitamin K deficiency -s/p oral Vitamin K 5mg x 3 days -when last checked INR wnl -continue eliquis at this time for afib #Thrombocytopenia -likely 2/2 cirrhosis -platelets currently greater than 140K #Colitis -GI consulted -continue Levaquin and Flagyl #JACKELIN on CKD -management per nephrology #CHF -pt on bumex #Afib -may continue eliquis as mentioned above #HTN -continue current BP meds #RA -management per rheumatology Thank you for the opportunity to participate in this patients care A total of 40 minutes of face to face time was spent speaking with the patient, of which greater than 50% was spent in counseling and coordination of care and the detailed question and answer session. Consultation Date/Type/Reason Admit Date/Time Nov 07, 2018 at 12:41 Initial Consult Date 11/12/18 Type of Consult hematology Reason for Consultation coagulopathy Requesting Provider: REJI KAUFFMAN MD Date/Time of Note DATE: 11/30/18 TIME: 13:24 24 HR Interval Summary Free Text/Dictation no acute overnight events. on bumex Exam/Review of Systems Exam Vitals Vital Signs Date Temp Pulse Resp B/P (MAP) Pulse Ox O2 O2 Flow FiO2 Time Delivery Rate 11/30/18 97.8 69 22 134/62 96 Room Air 11:37 (86) 11/30/18 2.0 08:00 Intake and Output 11/29/18 11/29/18 11/30/18 1515:00 23:00 07:00 IntakeIntake Total 360 ml 120 ml BalanceBalance 360 ml 120 ml Constitutional: alert, oriented Psych: no complaints Head: normocephalic Eyes: nl conjunctiva ENMT: nl external ears & nose Neck: supple Respiratory: clear to auscultation Cardiovascular: regular rate and rhythm Gastrointestinal: soft Musculoskeletal: nl extremities to inspection, swelling Results Result Diagram: 11/27/18 0539 11/30/18 0551 Results 24hrs Laboratory Tests Test 11/30/18 05:51 Sodium Level 133 L Potassium Level 4.1 Chloride Level 100 Carbon Dioxide Level 22 Anion Gap 11 Blood Urea Nitrogen 47 H Creatinine 1.87 H Est Glomerular Filtrat Rate mL/min Glucose Level 130 Uric Acid 11.9 H Calcium Level 8.3 L B-Type Natriuretic Peptide 50259 H Medications Medication Current Medications Acetaminophen (Tylenol Tab) 650 mg Q6H PRN PO MILD PAIN(1-3)OR ELEVATED TEMP Last administered on 11/12/18 00:29; Admin Dose 650 MG; Start 11/07/18 at 10:00 Loperamide HCl (Imodium Cap) 2 mg QID PRN PO DIARRHEA Last administered on 11/09/18 02:45; Admin Dose 2 MG; Start 11/07/18 at 10:30 Amiodarone HCl (Cordarone) 100 mg DAILY PO Last administered on 11/30/18 08:57; Admin Dose 100 MG; Start 11/08/18 at 09:00 Apixaban (Eliquis) 2.5 mg BID PO Last administered on 11/30/18 08:57; Admin Dose 2.5 MG; Start 11/07/18 at 12:00 Cholecalciferol (Vitamin D) 2,000 unit DAILY PO Last administered on 11/30/18 08:48; Admin Dose 2,000 UNIT; Start 11/08/18 at 09:00 Donepezil HCl (Aricept) 10 mg DAILY PO Last administered on 11/30/18 08:50; Admin Dose 10 MG; Start 11/08/18 at 09:00 Escitalopram Oxalate (Lexapro) 20 mg DAILY PO Last administered on 11/30/18 08:49; Admin Dose 20 MG; Start 11/08/18 at 09:00 EZETIMIBE (Zetia) 10 mg DAILY PO Last administered on 11/30/18 08:48; Admin Dose 10 MG; Start 11/08/18 at 09:00 Folic Acid (Folic Acid) 1 mg DAILY PO Last administered on 11/30/18 08:49; Admin Dose 1 MG; Start 11/08/18 at 09:00 Pantoprazole (Protonix Tab) 40 mg DAILY@06 PO Last administered on 11/30/18 05:41; Admin Dose 40 MG; Start 11/08/18 at 06:00 Levothyroxine Sodium (Synthroid) 25 mcg DAILY@0600 PO Last administered on 11/30/18 05:41; Admin Dose 25 MCG; Start 11/08/18 at 06:30 Ondansetron HCl (Zofran Inj) 4 mg Q6H PRN IV NAUSEA AND/OR VOMITING Last administered on 11/29/18 12:51; Admin Dose 4 MG; Start 11/08/18 at 10:30 Lorazepam (Ativan) 0.5 mg Q6H PRN PO ANXIETY Last administered on 11/29/18 20:38; Admin Dose 0.5 MG; Start 11/09/18 at 00:00 Psyllium Hydrophilic Mucilloid (Metamucil) 1 pkt DAILY PO Last administered on 11/30/18 08:49; Admin Dose 1 PKT; Start 11/10/18 at 09:00 Megestrol Acetate (Megace Susp) 400 mg BID PO Last administered on 11/30/18 08:51; Admin Dose 400 MG; Start 11/12/18 at 21:00 Zolpidem Tartrate (Ambien) 5 mg HS PRN PO INSOMNIA Last administered on 11/23/18 20:34; Admin Dose 5 MG; Start 11/23/18 at 18:00 Potassium Chloride (Klor-Con 20) 20 meq DAILY PO Last administered on 11/25/18 10:24; Admin Dose 20 MEQ; Start 11/25/18 at 09:00; Status Hold Metoprolol Succinate (Toprol Xl) 100 mg BID PO Last administered on 11/30/18 0 8:50; Admin Dose 100 MG; Start 11/28/18 at 21:00 Bumetanide 12 mg/ Dextrose/Water 120 ml @ 10 mls/hr Q12H ONCE IV Last administered on 11/30/18 08:48; Admin Dose 10 MLS/HR; Start 11/30/18 at 09:00; Stop 11/30/18 at 20:59 Allopurinol (Zyloprim) 100 mg BID PO Last administered on 11/30/18 08:56; Admin Dose 100 MG; Start 11/30/18 at 09:00 Hydralazine HCl (Apresoline) 10 mg BID PO ; Start 11/30/18 at 21:00 Hydralazine HCl (Apresoline) 5 mg ONCE ONCE PO Last administered on 11/30/18at 13:11; Admin Dose 5 MG; Start 11/30/18 at 14:00; Stop 11/30/18 at 14:01 CRISTIAN LEBLANC M.D. Nov 30, 2018 13:25
[2018-11-30 15:41] VITALS: BP 118/59; PULSE 81; RESP 20
[2018-11-30 20:00] VITALS: BP 129/71; PULSE 92; RESP 20
[2018-11-30] MEDS: MELATONIN 5 MG TABLET PO SCH ×2 (20:31→21:57)
[2018-12-01 00:14] VITALS: BP 131/65; PULSE 96; RESP 20
[2018-12-01 03:27] VITALS: BP 137/72; PULSE 97; RESP 20
[2018-12-01] MEDS: LEVOTHYROXINE 50 MCG TAB PO SCH (05:41)
[2018-12-01] MEDS: PANTOPRAZOLE (EC) 40 MG TAB PO SCH (05:41)
[2018-12-01 07:34] VITALS: BP 121/57; PULSE 94; RESP 22
[2018-12-01] MEDS: PSYLLIUM 28% PACKET PO SCH (08:42)
[2018-12-01] MEDS: ESCITALOPRAM 10 MG TAB PO SCH (08:43)
[2018-12-01] MEDS: MEGESTROL (40 MG/ML) 10ML CUP PO SCH (08:43)
[2018-12-01] MEDS: DONEPEZIL 10 MG TAB PO SCH (08:45)
[2018-12-01] MEDS: ALLOPURINOL 100 MG TAB PO SCH ×2 (08:45→21:19)
[2018-12-01] MEDS: FOLIC ACID 1 MG TAB PO SCH (08:45)
[2018-12-01] MEDS: CHOLECALCIFEROL 2,000 UNIT CAP PO SCH (08:45)
[2018-12-01] MEDS: METOPROLOL (XL) 100 MG TAB PO SCH ×2 (08:46→21:18)
[2018-12-01] MEDS: APIXABAN 5 MG TABLET PO SCH ×2 (08:46→21:18)
[2018-12-01] MEDS: AMIODARONE 200 MG TAB PO SCH (08:47)
--- NOTE | 2018-12-01 08:53 | CONS ---
Assessment/Plan Assessment/Plan Assessment/Plan (Daily) 1. Nonoliguric acute kidney injury on top of chronic kidney disease stage III. Etiology of acute kidney injury is secondary to hemodynamics.BUN/Cr 47/1.98- S/p Bumex gtt for 12 hr yesterday, will give another bumex drip 1 mg/hr x 12 hr today - allopurinol 100mg BID for hyperuricemia 2. Acute systolic, diastolic heart failure. The patient appears compensated. Continue to monitor renal function closely.- Bumex has been on hold( 1mg po daily ) 3. Hypokalemia, improved. 4. Hypernatremia, improved. 5. Mineral bone disorder. Monitor calcium and phosphorus levels. 6. Atrial fibrillation. Continue medical management., on Eliquis for anticoagulation 7. Possible colitis. The patient is completing antibiotic course. 8. Rheumatoid arthritis. Continue to monitor. Consultation Date/Type/Reason Admit Date/Time Nov 07, 2018 at 12:41 Initial Consult Date 11/09/18 Type of Consult NEPHROLOGY Requesting Provider: REJI KAUFFMAN MD Date/Time of Note DATE: 12/01/18 TIME: 08:53 Exam/Review of Systems Exam Vitals Vital Signs Date Temp Pulse Resp B/P (MAP) Pulse Ox O2 O2 Flow FiO2 Time Delivery Rate 12/01/18 97.6 94 22 121/57 98 Room Air 07:34 (78) 11/30/18 2.0 20:15 Intake and Output 11/30/18 11/30/18 12/01/18 1515:00 23:00 07:00 IntakeIntake Total 720 ml 120 ml BalanceBalance 720 ml 120 ml Exam Constitutional: No distress Neck: + JVD, no LAD Respiratory: bibasilar crackles Cardiovascular: regular rate and rhythm, irregular rhythm Gastrointestinal: soft, non-tender, bowel sounds Extremities: 3+ LE pitting edema, hand swelling +, back swelling + Skin: nl turgor Results Result Diagram: 11/27/18 0539 12/01/18 0514 Results 24hrs Laboratory Tests Test 12/01/18 05:14 Sodium Level 134 L Potassium Level 3.5 Chloride Level 99 Carbon Dioxide Level 26 Anion Gap 9 Blood Urea Nitrogen 47 H Creatinine 1.98 H Est Glomerular Filtrat Rate mL/min Glucose Level 94 Calcium Level 8.2 L Free Thyroxine 1.22 Medications Medication Current Medications Acetaminophen (Tylenol Tab) 650 mg Q6H PRN PO MILD PAIN(1-3)OR ELEVATED TEMP Last administered on 11/12/18 00:29; Admin Dose 650 MG; Start 11/07/18 at 10:00 Loperamide HCl (Imodium Cap) 2 mg QID PRN PO DIARRHEA Last administered on 11/09/18 02:45; Admin Dose 2 MG; Start 11/07/18 at 10:30 Amiodarone HCl (Cordarone) 100 mg DAILY PO Last administered on 12/01/18 08:47; Admin Dose 100 MG; Start 11/08/18 at 09:00 Apixaban (Eliquis) 2.5 mg BID PO Last administered on 12/01/18 08:46; Admin Dose 2.5 MG; Start 11/07/18 at 12:00 Cholecalciferol (Vitamin D) 2,000 unit DAILY PO Last administered on 12/01/18 08:45; Admin Dose 2,000 UNIT; Start 11/08/18 at 09:00 Donepezil HCl (Aricept) 10 mg DAILY PO Last administered on 12/01/18 08:45; Admin Dose 10 MG; Start 11/08/18 at 09:00 Escitalopram Oxalate (Lexapro) 20 mg DAILY PO Last administered on 12/01/18 08:43; Admin Dose 20 MG; Start 11/08/18 at 09:00 EZETIMIBE (Zetia) 10 mg DAILY PO Last administered on 11/30/18 08:48; Admin Dose 10 MG; Start 11/08/18 at 09:00 Folic Acid (Folic Acid) 1 mg DAILY PO Last administered on 12/01/18 08:45; A dmin Dose 1 MG; Start 11/08/18 at 09:00 Pantoprazole (Protonix Tab) 40 mg DAILY@06 PO Last administered on 12/01/18 05:41; Admin Dose 40 MG; Start 11/08/18 at 06:00 Ondansetron HCl (Zofran Inj) 4 mg Q6H PRN IV NAUSEA AND/OR VOMITING Last administered on 11/29/18 12:51; Admin Dose 4 MG; Start 11/08/18 at 10:30 Lorazepam (Ativan) 0.5 mg Q6H PRN PO ANXIETY Last administered on 11/29/18 20:38; Admin Dose 0.5 MG; Start 11/09/18 at 00:00 Psyllium Hydrophilic Mucilloid (Metamucil) 1 pkt DAILY PO Last administered on 12/01/18 08:42; Admin Dose 1 PKT; Start 11/10/18 at 09:00 Zolpidem Tartrate (Ambien) 5 mg HS PRN PO INSOMNIA Last administered on 11/23/18 20:34; Admin Dose 5 MG; Start 11/23/18 at 18:00 Potassium Chloride (Klor-Con 20) 20 meq DAILY PO Last administered on 11/25/18 10:24; Admin Dose 20 MEQ; Start 11/25/18 at 09:00; Status Hold Metoprolol Succinate (Toprol Xl) 100 mg BID PO Last administered on 12/01/18 08:46; Admin Dose 100 MG; Start 11/28/18 at 21:00 Allopurinol (Zyloprim) 100 mg BID PO Last administered on 12/01/18 08:45; Admin Dose 100 MG; Start 11/30/18 at 09:00 Hydralazine HCl (Apresoline) 10 mg BID PO Last administered on 12/01/18 08:45; Admin Dose 10 MG; Start 11/30/18 at 21:00 Levothyroxine Sodium (Synthroid) 50 mcg DAILY@0600 PO Last administered on 05:41; Admin Dose 50 MCG; Start 12/01/18 at 06:00 Megestrol Acetate (Megace Susp) 400 mg QAM PO Last administered on 12/01/18 08:43; Admin Dose 400 MG; Start 12/01/18 at 09:00 Melatonin (Melatonin) 5 mg HS PO Last administered on 11/30/18 21:57; Admin Dose 5 MG; Start 11/30/18 at 21:00 BEATRIZ PLEITEZ MD Dec 01, 2018 08:53
[2018-12-01] MEDS: EZETIMIBE 10 MG TAB PO SCH (09:21)
--- NOTE | 2018-12-01 09:48 | PN ---
Date/Time of Note Date/Time of Note DATE: 12/01/18 TIME: 09:47 Assessment/Plan VTE Prophylaxis Risk score (from Ns)>0 risk: 7 SCD applied (from [facility]): No SCD contraindicated: other Pharmacological prophylaxis: LMWH Lines/Catheters IV Catheter Type (from [facility] Mid Line Urinary Cath still in place: No Assessment/Plan Hospital Course -Left foot cellulitis,resolved. s/p Ancef. -Acute decompensated systolic and diastolic congestive heart failure. -Nonoliguric acute kidney injury on top of chronic kidney disease stage III. Dr. Juárez is following in nephrology consultation. -Coagulopathy most likely to liver cirrhosis and vitamin K deficiency, status post vitamin K, improved. Dr. Ramsay is following in hematology consultation. -Atrial fibrillation with initially rapid ventricular rates, improved, continue metoprolol. Dr Mayers is following in cardiology consultation. -Nausea vomiting and diarrhea for 2 days, resolved. Dr. Merchant is following in gastroenterology consultation. -Colitis per CT scan. S/p Levaquin and Flagyl. 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 Patient unable to undergo MRI due to pacemaker. Dr. Duque is following and podiatry consultation. -Hypertension, continue metoprolol Norvasc and Cozaar -PPM -Hypothyroidism, continue levothyroxine. -Rheumatoid arthritis, Dr Grant is following in rheumatology consultation. Result Diagram: 11/27/18 0539 12/01/18 0514 Results 24hrs Laboratory Tests Test 12/01/18 05:14 Sodium Level 134 L Potassium Level 3.5 Chloride Level 99 Carbon Dioxide Level 26 Anion Gap 9 Blood Urea Nitrogen 47 H Creatinine 1.98 H Est Glomerular Filtrat Rate mL/min Glucose Level 94 Calcium Level 8.2 L Free Thyroxine 1.22 Subjective 24 Hr Interval Summary Free Text/Dictation Patient sitting in chair, appears comfortable Exam/Review of Systems Exam Vitals Vital Signs Date Temp Pulse Resp B/P (MAP) Pulse Ox O2 O2 Flow FiO2 Time Delivery Rate 12/01/18 97.6 94 22 121/57 98 Room Air 07:34 (78) 11/30/18 2.0 20:15 Intake and Output 11/30/18 11/30/18 12/01/18 1515:00 23:00 07:00 IntakeIntake Total 720 ml 120 ml BalanceBalance 720 ml 120 ml Constitutional: well developed Head: normocephalic, atraumatic Neck: supple Respiratory: diminished breath sounds Cardiovascular: regular rate and rhythm Gastrointestinal: soft, non-tender Extremities: normal pulses, edema Results Results 24hrs Laboratory Tests Test 12/01/18 05:14 Sodium Level 134 L Potassium Level 3.5 Chloride Level 99 Carbon Dioxide Level 26 Anion Gap 9 Blood Urea Nitrogen 47 H Creatinine 1.98 H Est Glomerular Filtrat Rate mL/min Glucose Level 94 Calcium Level 8.2 L Free Thyroxine 1.22 Medications Medication Current Medications Acetaminophen (Tylenol Tab) 650 mg Q6H PRN PO MILD PAIN(1-3)OR ELEVATED TEMP Last administered on 11/12/18 00:29; Admin Dose 650 MG; Start 11/07/18 at 10:00 Loperamide HCl (Imodium Cap) 2 mg QID PRN PO DIARRHEA Last administered on 11/09/18 02:45; Admin Dose 2 MG; Start 11/07/18 at 10:30 Amiodarone HCl (Cordarone) 100 mg DAILY PO Last administered on 12/01/18 08:47; Admin Dose 100 MG; Start 11/08/18 at 09:00 Apixaban (Eliquis) 2.5 mg BID PO Last administered on 12/01/18 08:46; Admin Dose 2.5 MG; Start 11/07/18 at 12:00 Cholecalciferol (Vitamin D) 2,000 unit DAILY PO Last administered on 12/01/18 08:45; Admin Dose 2,000 UNIT; Start 11/08/18 at 09:00 Donepezil HCl (Aricept) 10 mg DAILY PO Last administered on 12/01/18 08:45; Admin Dose 10 MG; Start 11/08/18 at 09:00 Escitalopram Oxalate (Lexapro) 20 mg DAILY PO Last administered on 12/01/18 08:43; Admin Dose 20 MG; Start 11/08/18 at 09:00 EZETIMIBE (Zetia) 10 mg DAILY PO Last administered on 12/01/18 09:21; Admin Dose 10 MG; Start 11/08/18 at 09:00 Folic Acid (Folic Acid) 1 mg DAILY PO Last administered on 12/01/18 08:45; Admin Dose 1 MG; Start 11/08/18 at 09:00 Pantoprazole (Protonix Tab) 40 mg DAILY@06 PO Last administered on 12/01/18 05:41; Admin Dose 40 MG; Start 11/08/18 at 06:00 Ondansetron HCl (Zofran Inj) 4 mg Q6H PRN IV NAUSEA AND/OR VOMITING Last administered on 11/29/18 12:51; Admin Dose 4 MG; Start 11/08/18 at 10:30 Lorazepam (Ativan) 0.5 mg Q6H PRN PO ANXIETY Last administered on 11/29/18 20:38; Admin Dose 0.5 MG; Start 11/09/18 at 00:00 Psyllium Hydrophilic Mucilloid (Metamucil) 1 pkt DAILY PO Last administered on 12/01/18 08:42; Admin Dose 1 PKT; Start 11/10/18 at 09:00 Zolpidem Tartrate (Ambien) 5 mg HS PRN PO INSOMNIA Last administered on 11/23/18 20:34; Admin Dose 5 MG; Start 11/23/18 at 18:00 Potassium Chloride (Klor-Con 20) 20 meq DAILY PO Last administered on 11/25/18 10:24; Admin Dose 20 MEQ; Start 11/25/18 at 09:00; Status Hold Metoprolol Succinate (Toprol Xl) 100 mg BID PO Last administered on 12/01/18 08:46; Admin Dose 100 MG; Start 11/28/18 at 21:00 Allopurinol (Zyloprim) 100 mg BID PO Last administered on 12/01/18 08:45; Admin Dose 100 MG; Start 11/30/18 at 09:00 Hydralazine HCl (Apresoline) 10 mg BID PO Last administered on 12/01/18 08:45; Admin Dose 10 MG; Start 11/30/18 at 21:00 Levothyroxine Sodium (Synthroid) 50 mcg DAILY@0600 PO Last administered on 12/01/18 05:41; Admin Dose 50 MCG; Start 12/01/18 at 06:00 Megestrol Acetate (Megace Susp) 400 mg QAM PO Last administered on 12/01/18 08:43; Admin Dose 400 MG; Start 12/01/18 at 09:00 Melatonin (Melatonin) 5 mg HS PO Last administered on 11/30/18at 21:57; Admin Dose 5 MG; Start 11/30/18 at 21:00 Bumetanide 12 mg/ Dextrose/Water 120 ml @ 10 mls/hr Q12H ONCE IV ; Start 12/01/18 at 10:00; Stop 12/01/18 at 21:59 NUSRAT WADDELL Dec 01, 2018 09:48
[2018-12-01] MEDS ORDERED: BUMETANIDE 12 MG in DEXTROSE 5% 72 ML IV ONE (10:00)
--- NOTE | 2018-12-01 11:05 | CONS ---
Assessment/Plan Assessment/Plan Assessment/Plan (Daily) Assessment/Plan Assessment/Plan (Daily) 83 yo female with N/V and diarrhea 1. Nausea, vomiting and diarrhea which have subsided now, most probably related to viral infection or of infectious etiology -resolved. 2. Atrial fibrillation for which she is on Eliquis. 3. Status post pacemaker insertion. 4. Dyslipidemia. 5. Hypothyroidism. 6. Hypertension. 7. Fatigue -likely due to depression -lexapro 8. Pedal edema pitting all the way up to knee, has reduced her drastically responded well to diuretics. 9. Coagulopathy may be due to cirrhosis of liver -improved -heme following 10. Abnormal LFT -patient CAT scan shows nodular liver which may be due to cirrhosis and also steatosis is playing a role -Hep panel unremarkable -LFTs wnl now 11. Thrombocytopenia -followed by Dr Ramsay 12. Liver cirrhosis noted in CT scan -HEARD? No methotrexate -hep panel unremarkable. -hepatic autoimmune panel unremarkable 13. Weakness, 14 poor oral intake patient family has declined EGD and colonoscopy at this point Plan Continue present care rheumatology follow-up Diuretics as per business analytics analyst Consultation Date/Type/Reason Admit Date/Time Nov 07, 2018 at 12:41 Initial Consult Date Requesting Provider: REJI KAUFFMAN MD Date/Time of Note DATE: 12/01/18 TIME: 11:04 24 HR Interval Summary Free Text/Dictation Complains of swelling in the legs No nausea no vomiting no diarrhea No abdominal pain Exam/Review of Systems Exam Vitals Vital Signs Date Temp Pulse Resp B/P (MAP) Pulse Ox O2 O2 Flow FiO2 Time Delivery Rate 12/01/18 97.6 94 22 121/57 98 Room Air 07:34 (78) 11/30/18 2.0 20:15 Intake and Output 11/30/18 11/30/18 12/01/18 1515:00 23:00 07:00 IntakeIntake Total 720 ml 120 ml BalanceBalance 720 ml 120 ml Constitutional: alert, oriented Neck: supple, non-tender Extremities: pitting pedal edema Results Result Diagram: 11/27/18 0539 12/01/18 0514 Results 24hrs Laboratory Tests Test 12/01/18 05:14 Sodium Level 134 L Potassium Level 3.5 Chloride Level 99 Carbon Dioxide Level 26 Anion Gap 9 Blood Urea Nitrogen 47 H Creatinine 1.98 H Est Glomerular Filtrat Rate mL/min Glucose Level 94 Calcium Level 8.2 L Free Thyroxine 1.22 Medications Medication Current Medications Acetaminophen (Tylenol Tab) 650 mg Q6H PRN PO MILD PAIN(1-3)OR ELEVATED TEMP Last administered on 11/12/18 00:29; Admin Dose 650 MG; Start 11/07/18 at 10:00 Loperamide HCl (Imodium Cap) 2 mg QID PRN PO DIARRHEA Last administered on 11/09/18 02:45; Admin Dose 2 MG; Start 11/07/18 at 10:30 Amiodarone HCl (Cordarone) 100 mg DAILY PO Last administered on 12/01/18 08:47; Admin Dose 100 MG; Start 11/08/18 at 09:00 Apixaban (Eliquis) 2.5 mg BID PO Last administered on 12/01/18 08:46; Admin Dose 2.5 MG; Start 11/07/18 at 12:00 Cholecalciferol (Vitamin D) 2,000 unit DAILY PO Last administered on 12/01/18 08:45; Admin Dose 2,000 UNIT; Start 11/08/18 at 09:00 Donepezil HCl (Aricept) 10 mg DAILY PO Last administered on 12/01/18 08:45; Admin Dose 10 MG; Start 11/08/18 at 09:00 Escitalopram Oxalate (Lexapro) 20 mg DAILY PO Last administered on 12/01/18 08:43; Admin Dose 20 MG; Start 11/08/18 at 09:00 EZETIMIBE (Zetia) 10 mg DAILY PO Last administered on 12/01/18 09:21; Admin Dose 10 MG; Start 11/08/18 at 09:00 Folic Acid (Folic Acid) 1 mg DAILY PO Last administered on 12/01/18 08:45; Admin Dose 1 MG; Start 11/08/18 at 09:00 Pantoprazole (Protonix Tab) 40 mg DAILY@06 PO Last administered on 12/01/18 05:41; Admin Dose 40 MG; Start 11/08/18 at 06:00 Ondansetron HCl (Zofran Inj) 4 mg Q6H PRN IV NAUSEA AND/OR VOMITING Last administered on 11/29/18 12:51; Admin Dose 4 MG; Start 11/08/18 at 10:30 Lorazepam (Ativan) 0.5 mg Q6H PRN PO ANXIETY Last administered on 11/29/18 20:38; Admin Dose 0.5 MG; Start 11/09/18 at 00:00 Psyllium Hydrophilic Mucilloid (Metamucil) 1 pkt DAILY PO Last administered on 12/01/18 08:42; Admin Dose 1 PKT; Start 11/10/18 at 09:00 Zolpidem Tartrate (Ambien) 5 mg HS PRN PO INSOMNIA Last administered on 11/23/18 20:34; Admin Dose 5 MG; Start 11/23/18 at 18:00 Potassium Chloride (Klor-Con 20) 20 meq DAILY PO Last administered on 11/25/18 10:24; Admin Dose 20 MEQ; Start 11/25/18 at 09:00; Status Hold Metoprolol Succinate (Toprol Xl) 100 mg BID PO Last administered on 12/01/18 08:46; Admin Dose 100 MG; Start 11/28/18 at 21:00 Allopurinol (Zyloprim) 100 mg BID PO Last administered on 12/01/18 08:45; Admin Dose 100 MG; Start 11/30/18 at 09:00 Hydralazine HCl (Apresoline) 10 mg BID PO Last administered on 12/01/18 08:45; Admin Dose 10 MG; Start 11/30/18 at 21:00 Levothyroxine Sodium (Synthroid) 50 mcg DAILY@0600 PO Last administered on 12/01/18 05:41; Admin Dose 50 MCG; Start 12/01/18 at 06:00 Megestrol Acetate (Megace Susp) 400 mg QAM PO Last administered on 12/01/18 08:43; Admin Dose 400 MG; Start 12/01/18 at 09:00 Melatonin (Melatonin) 5 mg HS PO Last administered on 11/30/18 21:57; Admin Dose 5 MG; Start 11/30/18 at 21:00 Bumetanide 12 mg/ Dextrose/Water 120 ml @ 10 mls/hr Q12H ONCE IV ; Start 12/01/18 at 10:00; Stop 12/01/18 at 21:59 TONY SHETTY MD Dec 01, 2018 11:05
[2018-12-01 11:17] VITALS: BP 131/66; PULSE 89; RESP 20
--- NOTE | 2018-12-01 11:44 | CONS ---
Assessment/Plan Assessment/Plan Assessment/Plan (Daily) #Coagulopathy -pt is noted to have an elevated PT (26sec) and PTT(35 sec). Today patient;s PTT is within normal limits. PT mixing study corrected. This essentially rules out a factor inhibitor. This makes the most likely cause of her coagulopathy her underlying cirrhosis and Vitamin K deficiency -s/p oral Vitamin K 5mg x 3 days -when last checked INR wnl -continue eliquis at this time for afib #Thrombocytopenia -likely 2/2 cirrhosis -platelets currently greater than 140K #Colitis -GI consulted -continue Levaquin and Flagyl #JACKELIN on CKD Cr 1.98 today -management per nephrology #CHF -pt on bumex #Afib -may continue eliquis as mentioned above #HTN -continue current BP meds #RA -management per rheumatology Patient seen in collaboration with Dr Ramsay Consultation Date/Type/Reason Admit Date/Time Nov 07, 2018 at 12:41 Initial Consult Date 11/12/18 Type of Consult HEM/ONC Reason for Consultation COAGULOPATHY Requesting Provider: REJI KAUFFMAN MD Date/Time of Note DATE: 12/01/18 TIME: 11:43 24 HR Interval Summary Free Text/Dictation sitting up in chair no bleeding reported from any orifices daughter at bed side- all Qs answered no events overnight dw staff Constitutional: requiring O2 Detailed Summary Eyes: no complaints ENT: no complaints Respiratory: no complaints Cardiovascular: no complaints Gastrointestinal: no complaints Genitourinary: no complaints Musculoskeletal: other (generelized weakness) Skin: no complaints Neurologic: no complaints Endocrine: no complaints Psychological: nl mood/affect Immunologic: no complaints Exam/Review of Systems Exam Vitals Vital Signs Date Temp Pulse Resp B/P (MAP) Pulse Ox O2 O2 Flow FiO2 Time Delivery Rate 12/01/18 97.2 89 20 131/66 97 Room Air 11:17 (87) 11/30/18 2.0 20:15 Intake and Output 11/30/18 11/30/18 12/01/18 1515:00 23:00 07:00 IntakeIntake Total 720 ml 120 ml BalanceBalance 720 ml 120 ml Constitutional: alert, well developed, obese Psych: nl mood/affect Head: normocephalic Eyes: nl lids, nl sclera ENMT: nl external ears & nose Neck: non-tender Respiratory: clear to auscultation Cardiovascular: nl pulses, other (S1S2) Gastrointestinal: soft, non-tender Musculoskeletal: nl extremities to inspection Extremities: edema Neurological: nl speech, other (ALERT) Skin: nl turgor Results Result Diagram: 11/27/18 0539 12/01/18 0514 Results 24hrs Laboratory Tests Test 12/01/18 05:14 Sodium Level 134 L Potassium Level 3.5 Chloride Level 99 Carbon Dioxide Level 26 Anion Gap 9 Blood Urea Nitrogen 47 H Creatinine 1.98 H Est Glomerular Filtrat Rate mL/min Glucose Level 94 Calcium Level 8.2 L Free Thyroxine 1.22 Medications Medication Current Medications Acetaminophen (Tylenol Tab) 650 mg Q6H PRN PO MILD PAIN(1-3)OR ELEVATED TEMP Last administered on 11/12/18 00:29; Admin Dose 650 MG; Start 11/07/18 at 10:00 Loperamide HCl (Imodium Cap) 2 mg QID PRN PO DIARRHEA Last administered on 02:45; Admin Dose 2 MG; Start 11/07/18 at 10:30 Amiodarone HCl (Cordarone) 100 mg DAILY PO Last administered on 12/01/18 08:47; Admin Dose 100 MG; Start 11/08/18 at 09:00 Apixaban (Eliquis) 2.5 mg BID PO Last administered on 12/01/18 08:46; Admin Dose 2.5 MG; Start 11/07/18 at 12:00 Cholecalciferol (Vitamin D) 2,000 unit DAILY PO Last administered on 12/01/18 08:45; Admin Dose 2,000 UNIT; Start 11/08/18 at 09:00 Donepezil HCl (Aricept) 10 mg DAILY PO Last administered on 12/01/18 08:45; Admin Dose 10 MG; Start 11/08/18 at 09:00 Escitalopram Oxalate (Lexapro) 20 mg DAILY PO Last administered on 12/01/18 08:43; Admin Dose 20 MG; Start 11/08/18 at 09:00 EZETIMIBE (Zetia) 10 mg DAILY PO Last administered on 12/01/18 09:21; Admin Dose 10 MG; Start 11/08/18 at 09:00 Folic Acid (Folic Acid) 1 mg DAILY PO Last administered on 12/01/18 08:45; Admin Dose 1 MG; Start 11/08/18 at 09:00 Pantoprazole (Protonix Tab) 40 mg DAILY@06 PO Last administered on 12/01/18 05:41; Admin Dose 40 MG; Start 11/08/18 at 06:00 Ondansetron HCl (Zofran Inj) 4 mg Q6H PRN IV NAUSEA AND/OR VOMITING Last administered on 11/29/18 12:51; Admin Dose 4 MG; Start 11/08/18 at 10:30 Lorazepam (Ativan) 0.5 mg Q6H PRN PO ANXIETY Last administered on 11/29/18 20:38; Admin Dose 0.5 MG; Start 11/09/18 at 00:00 Psyllium Hydrophilic Mucilloid (Metamucil) 1 pkt DAILY PO Last administered on 12/01/18 08:42; Admin Dose 1 PKT; Start 11/10/18 at 09:00 Zolpidem Tartrate (Ambien) 5 mg HS PRN PO INSOMNIA Last administered on 11/23/18 20:34; Admin Dose 5 MG; Start 11/23/18 at 18:00 Potassium Chloride (Klor-Con 20) 20 meq DAILY PO Last administered on 11/25/18 10:24; Admin Dose 20 MEQ; Start 11/25/18 at 09:00; Status Hold Metoprolol Succinate (Toprol Xl) 100 mg BID PO Last administered on 12/01/18 08:46; Admin Dose 100 MG; Start 11/28/18 at 21:00 Allopurinol (Zyloprim) 100 mg BID PO Last administered on 12/01/18 08:45; Admin Dose 100 MG; Start 11/30/18 at 09:00 Hydralazine HCl (Apresoline) 10 mg BID PO Last administered on 12/01/18 08:45; Admin Dose 10 MG; Start 11/30/18 at 21:00 Levothyroxine Sodium (Synthroid) 50 mcg DAILY@0600 PO Last administered on 12/01/18 05:41; Admin Dose 50 MCG; Start 12/01/18 at 06:00 Megestrol Acetate (Megace Susp) 400 mg QAM PO Last administered on 12/01/18 0 8:43; Admin Dose 400 MG; Start 12/01/18 at 09:00 Melatonin (Melatonin) 5 mg HS PO Last administered on 11/30/18at 21:57; Admin Dose 5 MG; Start 11/30/18 at 21:00 Bumetanide 12 mg/ Dextrose/Water 120 ml @ 10 mls/hr Q12H ONCE IV ; Start 12/01/18 at 10:00; Stop 12/01/18 at 21:59 HOMERO ISAACS Dec 01, 2018 11:44
--- NOTE | 2018-12-01 15:41 | CONS ---
Consult Date/Type/Reason Admit Date/Time Nov 07, 2018 at 12:41 Initial Consult Date 11/12/18 Type of Consultation: CV Requesting Provider: REJI KAUFFMAN MD Date/Time of Note DATE: 12/01/18 TIME: 15:36 Subjective Interventional cardiology follow-up progress note subjective: Discussed with the staff discussed with the daughter. Telemetry was reviewed. Patient remains in atrial for ablation heart rate under good control She denies any chest pain or pressure to me Breathing has remained stable no changes. Objective: General: Obese female in no acute distress HEENT: NC/AT. pupils are equal. round. NECK:. no stridor. CV: Irregularly irregular systolic murmur; no gallop or rubs. Chest: Subtle permanent pacemaker on the left side PULM: no wheezing +rhonchi. GI: SOFT, NT, ND, no rebound or guarding Extremity:+ B/L LE edema. no clubbing. neuro: awake and alert, . Psych: Appears depressed mood but pleasant rectal: deferred Objective Vitals Vital Signs Date Temp Pulse Resp B/P (MAP) Pulse Ox O2 O2 Flow FiO2 Time Delivery Rate 12/01/18 97.2 89 20 131/66 97 Room Air 11:17 (87) 12/01/18 2.0 08:30 Intake and Output 11/30/18 11/30/18 12/01/18 1515:00 23:00 07:00 IntakeIntake Total 720 ml 120 ml BalanceBalance 720 ml 120 ml Results/Medications Result Diagram: 11/27/18 0539 12/01/18 0514 Results 24 hrs Laboratory Tests Test 12/01/18 05:14 Sodium Level 134 L Potassium Level 3.5 Chloride Level 99 Carbon Dioxide Level 26 Anion Gap 9 Blood Urea Nitrogen 47 H Creatinine 1.98 H Est Glomerular Filtrat Rate mL/min Glucose Level 94 Calcium Level 8.2 L Free Thyroxine 1.22 Home Meds Reported Medications Icosapent Ethyl (VASCEPA) 1 Gm Capsule, 1 GM PO QID, CAP 11/07/18 Linaclotide (LINZESS) 145 Mcg Capsule, 145 MCG PO DAILY, #30 CAP 11/07/18 Furosemide* (Furosemide*) 20 Mg Tablet, 20 MG PO DAILY, #60 TAB 11/07/18 Ferrous Sulfate* (Ferrous Sulfate*) 325 Mg Tabec, 325 MG PO TID, TAB 11/07/18 Diclofenac Sodium* (Diclofenac Sodium*) 75 Mg Tablet.dr, 75 MG PO BID, #60 TAB 11/07/18 Cholecalciferol (Vitamin D3) (VITAMIN D-3) 2,000 Unit Capsule, 2000 UNIT PO, CAP 11/07/18 Esomeprazole Magnesium (Esomeprazole Magnesium) 20 Mg Capsule.dr, 20 MG PO BEFORE BREAKFAST, #30 CAP 11/07/18 Escitalopram Oxalate* (Escitalopram Oxalate*) 20 Mg Tablet, 20 MG PO DAILY, #30 TAB 11/07/18 Losartan Potassium* (Losartan Potassium*) 100 Mg Tablet, 100 MG PO DAILY, TAB 11/07/18 Calcium Carbonate* (Calcium Carbonate*) 600 MG Ca Tab, 600 MG PO, TAB 11/07/18 Folic Acid* (Folic Acid*) 1 Mg Tablet, 1 MG PO DAILY, TAB 11/07/18 Apixaban* (Eliquis*) 2.5 Mg Tablet, 2.5 MG PO BID, TAB 11/07/18 Metoprolol Tartrate* (Lopressor*) 100 Mg Tablet, 200 MG PO BID, #120 TAB 11/07/18 Ezetimibe* (Zetia*) 10 Mg Tablet, 10 MG PO DAILY, TAB 11/07/18 Donepezil* (Donepezil*) 10 Mg Tablet, 10 MG PO DAILY, #30 TAB 11/07/18 Amiodarone Hcl* (Amiodarone Hcl*) 200 Mg Tablet, 100 MG PO BID for XIBD-QPH-GPV, #60 TAB 11/07/18 Amlodipine Besylate* (Norvasc*) 5 Mg Tablet, 5 MG PO DAILY, TAB 11/07/18 Levocetirizine Dihydrochloride (LEVOCETIRIZINE DIHYDROCHLORIDE) 1 Gm Powder, 1 GM MC 05/03/16 Infliximab (Remicade) 100 Mg Soln, 100 MG IV 6 WEEKS 12/14/11 Levothyroxine Sodium (Levothroid) 25 Mcg Tablet, 25 MCG PO DAILY 12/14/11 Simvastatin (Simvastatin) 20 Mg Tablet, 20 MG PO DAILY 12/14/11 Lorazepam* (Ativan*) 0.5 Mg Tablet, 0.5 MG PO DAILY 12/14/11 Omeprazole* (Omeprazole*) 20 Mg Capsule.dr, 20 MG PO AC MEALS AND BEDTIME 12/14/11 Methotrexate Sodium (Methotrexate) 2.5 Mg/Dose-Pack Tab.ds.pk, 2.5 MG PO DAILY 12/14/11 Aspirin Ec (Aspir 81) 81 Mg Tablet.dr, 81 MG PO DAILY 12/14/11 Medications Current Medications Acetaminophen (Tylenol Tab) 650 mg Q6H PRN PO MILD PAIN(1-3)OR ELEVATED TEMP Last administered on 11/12/18 00:29; Admin Dose 650 MG; Start 11/07/18 at 10:00 Loperamide HCl (Imodium Cap) 2 mg QID PRN PO DIARRHEA Last administered on 11/09/18 02:45; Admin Dose 2 MG; Start 11/07/18 at 10:30 Amiodarone HCl (Cordarone) 100 mg DAILY PO Last administered on 12/01/18 08:47; Admin Dose 100 MG; Start 11/08/18 at 09:00 Apixaban (Eliquis) 2.5 mg BID PO Last administered on 12/01/18 08:46; Admin Dose 2.5 MG; Start 11/07/18 at 12:00 Cholecalciferol (Vitamin D) 2,000 unit DAILY PO Last administered on 12/01/18 08:45; Admin Dose 2,000 UNIT; Start 11/08/18 at 09:00 Donepezil HCl (Aricept) 10 mg DAILY PO Last administered on 12/01/18 08:45; Admin Dose 10 MG; Start 11/08/18 at 09:00 Escitalopram Oxalate (Lexapro) 20 mg DAILY PO Last administered on 12/01/18 08:43; Admin Dose 20 MG; Start 11/08/18 at 09:00 EZETIMIBE (Zetia) 10 mg DAILY PO Last administered on 12/01/18 09:21; Admin Dose 10 MG; Start 11/08/18 at 09:00 Folic Acid (Folic Acid) 1 mg DAILY PO Last administered on 12/01/18 08:45; Admin Dose 1 MG; Start 11/08/18 at 09:00 Pantoprazole (Protonix Tab) 40 mg DAILY@06 PO Last administered on 12/01/18 05:41; Admin Dose 40 MG; Start 11/08/18 at 06:00 Ondansetron HCl (Zofran Inj) 4 mg Q6H PRN IV NAUSEA AND/OR VOMITING Last administered on 11/29/18 12:51; Admin Dose 4 MG; Start 11/08/18 at 10:30 Lorazepam (Ativan) 0.5 mg Q6H PRN PO ANXIETY Last administered on 11/29/18 20:38; Admin Dose 0.5 MG; Start 11/09/18 at 00:00 Psyllium Hydrophilic Mucilloid (Metamucil) 1 pkt DAILY PO Last administered on 12/01/18 08:42; Admin Dose 1 PKT; Start 11/10/18 at 09:00 Zolpidem Tartrate (Ambien) 5 mg HS PRN PO INSOMNIA Last administered on 11/23/18 20:34; Admin Dose 5 MG; Start 11/23/18 at 18:00 Potassium Chloride (Klor-Con 20) 20 meq DAILY PO Last administered on 11/25/18 10:24; Admin Dose 20 MEQ; Start 11/25/18 at 09:00; Status Hold Metoprolol Succinate (Toprol Xl) 100 mg BID PO Last administered on 12/01/18 08:46; Admin Dose 100 MG; Start 11/28/18 at 21:00 Allopurinol (Zyloprim) 100 mg BID PO Last administered on 12/01/18 08:45; Admin Dose 100 MG; Start 11/30/18 at 09:00 Hydralazine HCl (Apresoline) 10 mg BID PO Last administered on 12/01/18 08:45; Admin Dose 10 MG; Start 11/30/18 at 21:00 Levothyroxine Sodium (Synthroid) 50 mcg DAILY@0600 PO Last administered on 12/01/18 05:41; Admin Dose 50 MCG; Start 12/01/18 at 06:00 Megestrol Acetate (Megace Susp) 400 mg QAM PO Last administered on 12/01/18 08:43; Admin Dose 400 MG; Start 12/01/18 at 09:00 Melatonin (Melatonin) 5 mg HS PO Last administered on 11/30/18 21:57; Admin Dose 5 MG; Start 11/30/18 at 21:00 Bumetanide 12 mg/ Dextrose/Water 120 ml @ 10 mls/hr Q12H ONCE IV Last administered on 6/29/19at 14:20; Admin Dose 10 MLS/HR; Start 12/01/18 at 10:00; Stop 12/01/18 at 21:59 Assessment/Plan Hospital Course (Demo Recall) Atrial fibrillation with initially rapid ventricular rates, improved HR NOW Nausea, vomiting-resolved congestive heart failure Acute kidney injury Mitral and tricuspid valve regurgitation Possible colitis Hypertension Dyslipidemia History of pacemaker Hypothyroidism: On Synthroid REC: HR is stable now. continue current dose of beta-carine Titrate hydralazine as blood pressure permits Continue anticoagulation if no contraindication Diuretics being adjusted by nephrology Thank you for this referral. We will continue to follow along with you until Dr. Carrasco returns on Monday RODY OCONNELL MD [facility] RODY OCONNELL MD Dec 01, 2018 15:41
[2018-12-01 17:09] VITALS: BP 110/62; PULSE 79
[2018-12-01 20:00] VITALS: BP 120/63; PULSE 99; RESP 18
[2018-12-01] MEDS: MELATONIN 5 MG TABLET PO SCH (21:19)
[2018-12-02] VITALS: BP 125/63; PULSE 85; RESP 20
[2018-12-02 04:00] VITALS: BP 121/67; PULSE 78; RESP 20
[2018-12-02] MEDS: LEVOTHYROXINE 50 MCG TAB PO SCH (06:14)
[2018-12-02] MEDS: PANTOPRAZOLE (EC) 40 MG TAB PO SCH (06:14)
[2018-12-02 07:39] VITALS: BP 134/63; PULSE 105; RESP 18
--- NOTE | 2018-12-02 08:00 | CONS ---
Assessment/Plan Assessment/Plan Assessment/Plan (Daily) 1. Nonoliguric acute kidney injury on top of chronic kidney disease stage III. Etiology of acute kidney injury is secondary to hemodynamics.pt diuresed well with bumex gtt for 2 days, BUN/Cr 42/1.52, K 2.9- feeling weak and tired , will give another bumex drip 1 mg/hr x 12 hr today 2. Hypokalemia due to diuresis- KCl 40MeQ PO X 2 doses, will change KCL to 20mEQ BID 3. Hyperuricemia- conitnue allopurinol 100mg BID 4. Acute on Chronic CHF systolic + diastolic ECHO 11/2018 showed EF 40%, stage II diastolic dysfunction - on Bumex gtt for now 4. Hypernatremia, improved. 5. Mineral bone disorder. Monitor calcium and phosphorus levels. 6. Atrial fibrillation. Continue medical management., on Eliquis for anticoagulation 7. Possible colitis. The patient is completing antibiotic course. 8. Rheumatoid arthritis. Continue to monito Consultation Date/Type/Reason Admit Date/Time Nov 07, 2018 at 12:41 Initial Consult Date 11/09/18 Type of Consult NEPHROLOGY Requesting Provider: REJI KAUFFMAN MD Date/Time of Note DATE: 12/02/18 TIME: 08:00 24 HR Interval Summary Free Text/Dictation pt diuresed well with bumex gtt for 2 days, BUN/Cr 42/1.52, K 2.9- feeling weak and tired Exam/Review of Systems Exam Vitals Vital Signs Date Temp Pulse Resp B/P (MAP) Pulse Ox O2 O2 Flow FiO2 Time Delivery Rate 12/02/18 98.5 105 18 134/63 96 Nasal 07:39 (86) Cannula 12/01/18 2.0 20:10 Intake and Output 12/01/18 12/01/18 12/02/18 1515:00 23:00 07:00 IntakeIntake Total 420 ml 960 ml 125 ml OutputOutput Total 100 ml 800 ml BalanceBalance 420 ml 860 ml -675 ml Exam Constitutional: No distress Neck: + JVD, no LAD Respiratory: bibasilar crackles Cardiovascular: regular rate and rhythm, irregular rhythm Gastrointestinal: soft, non-tender, bowel sounds Extremities: 2+ LE pitting edema, hand swelling +, back swelling + Skin: nl turgor Results Result Diagram: 12/01/18 0514 Medications Medication Current Medications Acetaminophen (Tylenol Tab) 650 mg Q6H PRN PO MILD PAIN(1-3)OR ELEVATED TEMP Last administered on 11/12/18 00:29; Admin Dose 650 MG; Start 11/07/18 at 10:00 Loperamide HCl (Imodium Cap) 2 mg QID PRN PO DIARRHEA Last administered on 11/09/18 02:45; Admin Dose 2 MG; Start 11/07/18 at 10:30 Amiodarone HCl (Cordarone) 100 mg DAILY PO Last administered on 12/01/18 08:47 ; Admin Dose 100 MG; Start 11/08/18 at 09:00 Apixaban (Eliquis) 2.5 mg BID PO Last administered on 12/01/18 21:18; Admin Dose 2.5 MG; Start 11/07/18 at 12:00 Cholecalciferol (Vitamin D) 2,000 unit DAILY PO Last administered on 12/01/18 08:45; Admin Dose 2,000 UNIT; Start 11/08/18 at 09:00 Donepezil HCl (Aricept) 10 mg DAILY PO Last administered on 12/01/18 08:45; Admin Dose 10 MG; Start 11/08/18 at 09:00 Escitalopram Oxalate (Lexapro) 20 mg DAILY PO Last administered on 12/01/18 08:43; Admin Dose 20 MG; Start 11/08/18 at 09:00 EZETIMIBE (Zetia) 10 mg DAILY PO Last administered on 12/01/18 09:21; Admin Dose 10 MG; Start 11/08/18 at 09:00 Folic Acid (Folic Acid) 1 mg DAILY PO Last administered on 12/01/18 08:45; Admin Dose 1 MG; Start 11/08/18 at 09:00 Pantoprazole (Protonix Tab) 40 mg DAILY@06 PO Last administered on 12/02/18 06:14; Admin Dose 40 MG; Start 11/08/18 at 06:00 Ondansetron HCl (Zofran Inj) 4 mg Q6H PRN IV NAUSEA AND/OR VOMITING Last administered on 11/29/18 12:51; Admin Dose 4 MG; Start 11/08/18 at 10:30 Lorazepam (Ativan) 0.5 mg Q6H PRN PO ANXIETY Last administered on 11/29/18 20:38; Admin Dose 0.5 MG; Start 11/09/18 at 00:00 Psyllium Hydrophilic Mucilloid (Metamucil) 1 pkt DAILY PO Last administered on 12/01/18 08:42; Admin Dose 1 PKT; Start 11/10/18 at 09:00 Zolpidem Tartrate (Ambien) 5 mg HS PRN PO INSOMNIA Last administered on 11/23/18 20:34; Admin Dose 5 MG; Start 11/23/18 at 18:00 Potassium Chloride (Klor-Con 20) 20 meq DAILY PO Last administered on 11/25/18 10:24; Admin Dose 20 MEQ; Start 11/25/18 at 09:00; Status Hold Metoprolol Succinate (Toprol Xl) 100 mg BID PO Last administered on 12/01/18 21:18; Admin Dose 100 MG; Start 11/28/18 at 21:00 Allopurinol (Zyloprim) 100 mg BID PO Last administered on 12/01/18 21:19; Admin Dose 100 MG; Start 11/30/18 at 09:00 Hydralazine HCl (Apresoline) 10 mg BID PO Last administered on 12/01/18 21:19; Admin Dose 10 MG; Start 11/30/18 at 21:00 Levothyroxine Sodium (Synthroid) 50 mcg DAILY@0600 PO Last administered on 12/02/18 06:14; Admin Dose 50 MCG; Start 12/01/18 at 06:00 Megestrol Acetate (Megace Susp) 400 mg QAM PO Last administered on 12/01/18 08:43; Admin Dose 400 MG; Start 12/01/18 at 09:00 Melatonin (Melatonin) 5 mg HS PO Last administered on 12/01/18 21:19; Admin Dose 5 MG; Start 11/30/18 at 21:00 BEATRIZ PLEITEZ MD Dec 02, 2018 08:00
[2018-12-02] MEDS: MEGESTROL (40 MG/ML) 10ML CUP PO SCH (08:13)
[2018-12-02] MEDS: PSYLLIUM 28% PACKET PO SCH (08:13)
[2018-12-02] MEDS: AMIODARONE 200 MG TAB PO SCH (08:14)
[2018-12-02] MEDS: FOLIC ACID 1 MG TAB PO SCH (08:14)
[2018-12-02] MEDS: APIXABAN 5 MG TABLET PO SCH ×2 (08:14→21:46)
[2018-12-02] MEDS: EZETIMIBE 10 MG TAB PO SCH (08:14)
[2018-12-02] MEDS: CHOLECALCIFEROL 2,000 UNIT CAP PO SCH (08:14)
[2018-12-02] MEDS: DONEPEZIL 10 MG TAB PO SCH (08:15)
[2018-12-02] MEDS: ESCITALOPRAM 10 MG TAB PO SCH (08:15)
[2018-12-02] MEDS: METOPROLOL (XL) 100 MG TAB PO SCH ×2 (08:15→21:47)
[2018-12-02] MEDS: ALLOPURINOL 100 MG TAB PO SCH ×2 (08:16→21:46)
[2018-12-02] MEDS ORDERED: POTASSIUM CHLORIDE (SR) 20 MEQ TAB PO STA (09:48)
--- NOTE | 2018-12-02 10:58 | PN ---
Date/Time of Note Date/Time of Note DATE: 12/02/18 TIME: 10:57 Assessment/Plan VTE Prophylaxis Risk score (from Ns)>0 risk: 7 [place] [facility] [place] contraindicated: other Pharmacological prophylaxis: LMWH Lines/Catheters IV [facility] Type ([facility] Mid Line Urinary Cath still in place: No Assessment/Plan Hospital Course -Left foot cellulitis,resolved. s/p Ancef. -Acute decompensated systolic and diastolic congestive heart failure. -Nonoliguric acute kidney injury on top of chronic kidney disease stage III. Dr. Juárez is following in nephrology consultation. -Coagulopathy most likely to liver cirrhosis and vitamin K deficiency, status post vitamin K, improved. Dr. Ramsay is following in hematology consultation. -Atrial fibrillation with initially rapid ventricular rates, improved, continue metoprolol. Dr Mayers is following in cardiology consultation. -Nausea vomiting and diarrhea for 2 days, resolved. Dr. Merchant is following in gastroenterology consultation. -Colitis per CT scan. S/p Levaquin and Flagyl. 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 Patient unable to undergo MRI due to pacemaker. Dr. Duque is following and podiatry consultation. -Hypertension, continue metoprolol Norvasc and Cozaar -PPM -Hypothyroidism, continue levothyroxine. -Rheumatoid arthritis, Dr Grant is following in rheumatology consultation. Result Diagram: 12/02/18 0829 Results 24hrs Laboratory Tests Test 12/02/18 08:29 Sodium Level 140 Potassium Level 2.9 *L Chloride Level 98 Carbon Dioxide Level 31 Anion Gap 11 Blood Urea Nitrogen 42 H Creatinine 1.52 H Est Glomerular Filtrat Rate mL/min Glucose Level 115 Calcium Level 8.4 Subjective 24 Hr Interval Summary Free Text/Dictation Family is upset about patient's decline Exam/Review of Systems Exam Vitals Vital Signs Date Temp Pulse Resp B/P (MAP) Pulse Ox O2 O2 Flow FiO2 Time Delivery Rate 12/02/18 98.5 105 18 134/63 96 Nasal 07:39 (86) Cannula 12/01/18 2.0 20:10 Intake and Output 12/01/18 12/01/18 12/02/18 1515:00 23:00 07:00 IntakeIntake Total 420 ml 960 ml 125 ml OutputOutput Total 100 ml 800 ml BalanceBalance 420 ml 860 ml -675 ml Constitutional: well developed Head: normocephalic, atraumatic Neck: supple Respiratory: diminished breath sounds Cardiovascular: regular rate and rhythm Gastrointestinal: soft, non-tender Extremities: normal pulses Results Results 24hrs Laboratory Tests Test 12/02/18 08:29 Sodium Level 140 Potassium Level 2.9 *L Chloride Level 98 Carbon Dioxide Level 31 Anion Gap 11 Blood Urea Nitrogen 42 H Creatinine 1.52 H Est Glomerular Filtrat Rate mL/min Glucose Level 115 Calcium Level 8.4 Medications Medication Current Medications Acetaminophen (Tylenol Tab) 650 mg Q6H PRN PO MILD PAIN(1-3)OR ELEVATED TEMP Last administered on 11/12/18 00:29; Admin Dose 650 MG; Start 11/07/18 at 10:00 Loperamide HCl (Imodium Cap) 2 mg QID PRN PO DIARRHEA Last administered on 11/09/18 02:45; Admin Dose 2 MG; Start 11/07/18 at 10:30 Amiodarone HCl (Cordarone) 100 mg DAILY PO Last administered on 12/02/18 08:14; Admin Dose 100 MG; Start 11/08/18 at 09:00 Apixaban (Eliquis) 2.5 mg BID PO Last administered on 12/02/18 08:14; Admin Dose 2.5 MG; Start 11/07/18 at 12:00 Cholecalciferol (Vitamin D) 2,000 unit DAILY PO Last administered on 12/02/18 08:14; Admin Dose 2,000 UNIT; Start 11/08/18 at 09:00 Donepezil HCl (Aricept) 10 mg DAILY PO Last administered on 12/02/18 08:15; Admin Dose 10 MG; Start 11/08/18 at 09:00 Escitalopram Oxalate (Lexapro) 20 mg DAILY PO Last administered on 12/02/18 08:15; Admin Dose 20 MG; Start 11/08/18 at 09:00 EZETIMIBE (Zetia) 10 mg DAILY PO Last administered on 12/02/18 08:14; Admin Dose 10 MG; Start 11/08/18 at 09:00 Folic Acid (Folic Acid) 1 mg DAILY PO Last administered on 12/02/18 08:14; Admin Dose 1 MG; Start 11/08/18 at 09:00 Pantoprazole (Protonix Tab) 40 mg DAILY@06 PO Last administered on 12/02/18 06:14; Admin Dose 40 MG; Start 11/08/18 at 06:00 Ondansetron HCl (Zofran Inj) 4 mg Q6H PRN IV NAUSEA AND/OR VOMITING Last administered on 11/29/18 12:51; Admin Dose 4 MG; Start 11/08/18 at 10:30 Lorazepam (Ativan) 0.5 mg Q6H PRN PO ANXIETY Last administered on 11/29/18 20:38; Admin Dose 0.5 MG; Start 11/09/18 at 00:00 Psyllium Hydrophilic Mucilloid (Metamucil) 1 pkt DAILY PO Last administered on 12/02/18 08:13; Admin Dose 1 PKT; Start 11/10/18 at 09:00 Zolpidem Tartrate (Ambien) 5 mg HS PRN PO INSOMNIA Last administered on 11/23/18 20:34; Admin Dose 5 MG; Start 11/23/18 at 18:00 Potassium Chloride (Klor-Con 20) 20 meq DAILY PO Last administered on 11/25/18 10:24; Admin Dose 20 MEQ; Start 11/25/18 at 09:00; Status Hold Metoprolol Succinate (Toprol Xl) 100 mg BID PO Last administered on 12/02/18 08:15; Admin Dose 100 MG; Start 11/28/18 at 21:00 Allopurinol (Zyloprim) 100 mg BID PO Last administered on 12/02/18 08:16; Admin Dose 100 MG; Start 11/30/18 at 09:00 Hydralazine HCl (Apresoline) 10 mg BID PO Last administered on 12/02/18 08:15; Admin Dose 10 MG; Start 11/30/18 at 21:00 Levothyroxine Sodium (Synthroid) 50 mcg DAILY@0600 PO Last administered on 12/02/18 06:14; Admin Dose 50 MCG; Start 12/01/18 at 06:00 Megestrol Acetate (Megace Susp) 400 mg QAM PO Last administered on 12/02/18 08:13; Admin Dose 400 MG; Start 12/01/18 at 09:00 Melatonin (Melatonin) 5 mg HS PO Last administered on 12/01/18at 21:19; Admin Dose 5 MG; Start 11/30/18 at 21:00 Potassium Chloride (Klor-Con 20) 40 meq ONCE ONCE PO ; Start 12/02/18 at 14:00; Stop 12/02/18 at 14:01 Petrolatum (Vaseline) 1 applic BID TOP ; Start 12/02/18 at 11:00 NUSRAT WADDELL Dec 02, 2018 10:58
[2018-12-02 11:26] VITALS: BP 139/66; PULSE 91; RESP 18
[2018-12-02] MEDS: PETROLATUM 5 GM OINT TOP SCH ×2 (11:56→21:55)
[2018-12-02] MEDS ORDERED: BUMETANIDE 12 MG in DEXTROSE 5% 72 ML IV ONE (13:00)
[2018-12-02] MEDS ORDERED: POTASSIUM CHLORIDE (SR) 20 MEQ TAB PO ONE (14:00)
--- NOTE | 2018-12-02 14:01 | CONS ---
Consult Date/Type/Reason Admit Date/Time Nov 07, 2018 at 12:41 Initial Consult Date 11/12/18 Type of Consultation: CV Requesting Provider: REJI KAUFFMAN MD Date/Time of Note DATE: 12/02/18 TIME: 14:00 Subjective Interventional cardiology follow-up progress note subjective: Discussed with the staff discussed with the daughter. Telemetry was reviewed. Patient remains in atrial for ablation heart rate under good control WITH DEMAND PACING She denies any chest pain or pressure to me Breathing has remained stable no changes. She complains of fatigue. Complains of leg burning Objective: General: Obese female in no acute distress HEENT: NC/AT. pupils are equal. round. NECK:. no stridor. CV: Irregularly irregular systolic murmur; no gallop or rubs. Chest: Subtle permanent pacemaker on the left side PULM: no wheezing +rhonchi. GI: SOFT, NT, ND, no rebound or guarding Extremity:+ B/L LE edema. no clubbing. neuro: awake and alert, . Psych: Appears depressed mood but pleasant rectal: deferred Objective Vitals Vital Signs Date Temp Pulse Resp B/P (MAP) Pulse Ox O2 O2 Flow FiO2 Time Delivery Rate 12/02/18 97.9 91 18 139/66 100 Nasal 11:26 (90) Cannula 12/02/18 2.0 08:10 Intake and Output 12/01/18 12/01/18 12/02/18 1515:00 23:00 07:00 IntakeIntake Total 420 ml 960 ml 125 ml OutputOutput Total 100 ml 800 ml BalanceBalance 420 ml 860 ml -675 ml Results/Medications Result Diagram: 12/02/18 0829 Results 24 hrs Laboratory Tests Test 12/02/18 08:29 Sodium Level 140 Potassium Level 2.9 *L Chloride Level 98 Carbon Dioxide Level 31 Anion Gap 11 Blood Urea Nitrogen 42 H Creatinine 1.52 H Est Glomerular Filtrat Rate mL/min Glucose Level 115 Calcium Level 8.4 Home Meds Reported Medications Icosapent Ethyl (VASCEPA) 1 Gm Capsule, 1 GM PO QID, CAP 11/07/18 Linaclotide (LINZESS) 145 Mcg Capsule, 145 MCG PO DAILY, #30 CAP 11/07/18 Furosemide* (Furosemide*) 20 Mg Tablet, 20 MG PO DAILY, #60 TAB 11/07/18 Ferrous Sulfate* (Ferrous Sulfate*) 325 Mg Tabec, 325 MG PO TID, TAB 11/07/18 Diclofenac Sodium* (Diclofenac Sodium*) 75 Mg Tablet.dr, 75 MG PO BID, #60 TAB 11/07/18 Cholecalciferol (Vitamin D3) (VITAMIN D-3) 2,000 Unit Capsule, 2000 UNIT PO, CAP 11/07/18 Esomeprazole Magnesium (Esomeprazole Magnesium) 20 Mg Capsule.dr, 20 MG PO BEFORE BREAKFAST, #30 CAP 11/07/18 Escitalopram Oxalate* (Escitalopram Oxalate*) 20 Mg Tablet, 20 MG PO DAILY, #30 TAB 11/07/18 Losartan Potassium* (Losartan Potassium*) 100 Mg Tablet, 100 MG PO DAILY, TAB 11/07/18 Calcium Carbonate* (Calcium Carbonate*) 600 MG Ca Tab, 600 MG PO, TAB 11/07/18 Folic Acid* (Folic Acid*) 1 Mg Tablet, 1 MG PO DAILY, TAB 11/07/18 Apixaban* (Eliquis*) 2.5 Mg Tablet, 2.5 MG PO BID, TAB 11/07/18 Metoprolol Tartrate* (Lopressor*) 100 Mg Tablet, 200 MG PO BID, #120 TAB 11/07/18 Ezetimibe* (Zetia*) 10 Mg Tablet, 10 MG PO DAILY, TAB 11/07/18 Donepezil* (Donepezil*) 10 Mg Tablet, 10 MG PO DAILY, #30 TAB 11/07/18 Amiodarone Hcl* (Amiodarone Hcl*) 200 Mg Tablet, 100 MG PO BID for [id number], #60 TAB 11/07/18 Amlodipine Besylate* (Norvasc*) 5 Mg Tablet, 5 MG PO DAILY, TAB 11/07/18 Levocetirizine Dihydrochloride (LEVOCETIRIZINE DIHYDROCHLORIDE) 1 Gm Powder, 1 GM MC 05/03/16 Infliximab (Remicade) 100 Mg Soln, 100 MG IV 6 WEEKS 12/14/11 Levothyroxine Sodium (Levothroid) 25 Mcg Tablet, 25 MCG PO DAILY 12/14/11 Simvastatin (Simvastatin) 20 Mg Tablet, 20 MG PO DAILY 12/14/11 Lorazepam* (Ativan*) 0.5 Mg Tablet, 0.5 MG PO DAILY 12/14/11 Omeprazole* (Omeprazole*) 20 Mg Capsule.dr, 20 MG PO AC MEALS AND BEDTIME 12/14/11 Methotrexate Sodium (Methotrexate) 2.5 Mg/Dose-Pack Tab.ds.pk, 2.5 MG PO DAILY 12/14/11 Aspirin Ec (Aspir 81) 81 Mg Tablet.dr, 81 MG PO DAILY 12/14/11 Medications Current Medications Acetaminophen (Tylenol Tab) 650 mg Q6H PRN PO MILD PAIN(1-3)OR ELEVATED TEMP Last administered on 11/12/18 00:29; Admin Dose 650 MG; Start 11/07/18 at 10:00 Loperamide HCl (Imodium Cap) 2 mg QID PRN PO DIARRHEA Last administered on 11/09/18 02:45; Admin Dose 2 MG; Start 11/07/18 at 10:30 Amiodarone HCl (Cordarone) 100 mg DAILY PO Last administered on 12/02/18 08:14; Admin Dose 100 MG; Start 11/08/18 at 09:00 Apixaban (Eliquis) 2.5 mg BID PO Last administered on 12/02/18 08:14; Admin Dose 2.5 MG; Start 11/07/18 at 12:00 Cholecalciferol (Vitamin D) 2,000 unit DAILY PO Last administered on 12/02/18 08:14; Admin Dose 2,000 UNIT; Start 11/08/18 at 09:00 Donepezil HCl (Aricept) 10 mg DAILY PO Last administered on 12/02/18 08:15; Admin Dose 10 MG; Start 11/08/18 at 09:00 Escitalopram Oxalate (Lexapro) 20 mg DAILY PO Last administered on 12/02/18 08:15; Admin Dose 20 MG; Start 11/08/18 at 09:00 EZETIMIBE (Zetia) 10 mg DAILY PO Last administered on 12/02/18 08:14; Admin Dose 10 MG; Start 11/08/18 at 09:00 Folic Acid (Folic Acid) 1 mg DAILY PO Last administered on 12/02/18 08:14; Admin Dose 1 MG; Start 11/08/18 at 09:00 Pantoprazole (Protonix Tab) 40 mg DAILY@06 PO Last administered on 12/02/18 06:14; Admin Dose 40 MG; Start 11/08/18 at 06:00 Ondansetron HCl (Zofran Inj) 4 mg Q6H PRN IV NAUSEA AND/OR VOMITING Last administered on 11/29/18 12:51; Admin Dose 4 MG; Start 11/08/18 at 10:30 Lorazepam (Ativan) 0.5 mg Q6H PRN PO ANXIETY Last administered on 11/29/18 20:38; Admin Dose 0.5 MG; Start 11/09/18 at 00:00 Psyllium Hydrophilic Mucilloid (Metamucil) 1 pkt DAILY PO Last administered on 12/02/18 08:13; Admin Dose 1 PKT; Start 11/10/18 at 09:00 Zolpidem Tartrate (Ambien) 5 mg HS PRN PO INSOMNIA Last administered on 11/23/18 20:34; Admin Dose 5 MG; Start 11/23/18 at 18:00 Metoprolol Succinate (Toprol Xl) 100 mg BID PO Last administered on 12/02/18 08:15; Admin Dose 100 MG; Start 11/28/18 at 21:00 Allopurinol (Zyloprim) 100 mg BID PO Last administered on 12/02/18 08:16; Admin Dose 100 MG; Start 11/30/18 at 09:00 Hydralazine HCl (Apresoline) 10 mg BID PO Last administered on 12/02/18 08:15; Admin Dose 10 MG; Start 11/30/18 at 21:00 Levothyroxine Sodium (Synthroid) 50 mcg DAILY@0600 PO Last administered on 12/02/18 06:14; Admin Dose 50 MCG; Start 12/01/18 at 06:00 Megestrol Acetate (Megace Susp) 400 mg QAM PO Last administered on 12/02/18 08:13; Admin Dose 400 MG; Start 12/01/18 at 09:00 Melatonin (Melatonin) 5 mg HS PO Last administered on 12/01/18 21:19; Admin Dose 5 MG; Start 11/30/18 at 21:00 Potassium Chloride (Klor-Con 20) 40 meq ONCE ONCE PO ; Start 12/02/18 at 14:00; Stop 12/02/18 at 14:01 Petrolatum (Vaseline) 1 applic BID TOP Last administered on 6/30/19at 11:56; Admin Dose 1 APPLIC; Start 12/02/18 at 11:00 Potassium Chloride (Klor-Con 20) 20 meq BID PO ; Start 12/02/18 at 21:00 Bumetanide 12 mg/ Dextrose/Water 120 ml @ 10 mls/hr Q12H ONCE IV Last administered on 12/02/18at 13:00; Admin Dose 10 MLS/HR; Start 12/02/18 at 13:00; Stop 12/03/18 at 00:59 Assessment/Plan Hospital Course (Demo Recall) Atrial fibrillation with initially rapid ventricular rates, improved HR NOW Nausea, vomiting-resolved congestive heart failure Acute kidney injury Mitral and tricuspid valve regurgitation Possible colitis Hypertension Dyslipidemia History of pacemaker Hypothyroidism: On Synthroid Hypokalemia REC: HR is stable now. continue current dose of beta-carine Titrate hydralazine as blood pressure permits Continue anticoagulation if no contraindication Diuretics being adjusted by nephrology Replace electrolytes as needed Thank you for this referral. We will continue to follow along with you until Dr. Carrasco returns on Monday RODY OCONNELL MD [facility] RODY OCONNELL MD Dec 02, 2018 14:01
--- NOTE | 2018-12-02 14:10 | CONS ---
Assessment/Plan Assessment/Plan Assessment/Plan (Daily) #Coagulopathy -pt is noted to have an elevated PT (26sec) and PTT(35 sec). Today patient;s PTT is within normal limits. PT mixing study corrected. This essentially rules out a factor inhibitor. This makes the most likely cause of her coagulopathy her underlying cirrhosis and Vitamin K deficiency -s/p oral Vitamin K 5mg x 3 days -when last checked INR wnl -continue eliquis at this time for afib #Thrombocytopenia -likely 2/2 cirrhosis -platelets currently greater than 140K #Colitis -GI consulted -continue Levaquin and Flagyl #JACKELIN on CKD. Cr1.52 today -management per nephrology #CHF -pt on bumex #Afib -may continue eliquis as mentioned above #HTN -continue current BP meds #RA -management per rheumatology Patient seen in collaboration with Dr Ramsay Consultation Date/Type/Reason Admit Date/Time Nov 07, 2018 at 12:41 Initial Consult Date 11/12/18 Type of Consult HEM/ONC Reason for Consultation COAGULOPATHY Requesting Provider: REJI KAUFFMAN MD Date/Time of Note DATE: 12/02/18 TIME: 14:10 24 HR Interval Summary Free Text/Dictation No events, bleeding reported dw staff Constitutional: requiring O2 Detailed Summary Eyes: no complaints ENT: no complaints Respiratory: no complaints Cardiovascular: no complaints Gastrointestinal: no complaints Genitourinary: no complaints Musculoskeletal: other (generelized weakness) Skin: no complaints Neurologic: no complaints Endocrine: no complaints Lymphatic: no complaints Immunologic: no complaints Exam/Review of Systems Exam Vitals Vital Signs Date Temp Pulse Resp B/P (MAP) Pulse Ox O2 O2 Flow FiO2 Time Delivery Rate 12/02/18 97.9 91 18 139/66 100 Nasal 11:26 (90) Cannula 12/02/18 2.0 08:10 Intake and Output 12/01/18 12/01/18 12/02/18 1515:00 23:00 07:00 IntakeIntake Total 420 ml 960 ml 125 ml OutputOutput Total 100 ml 800 ml BalanceBalance 420 ml 860 ml -675 ml Constitutional: alert, well developed Psych: nl mood/affect Head: normocephalic Eyes: nl lids, nl sclera ENMT: nl external ears & nose Neck: non-tender Respiratory: clear to auscultation Cardiovascular: other (s1s2) Gastrointestinal: soft, non-tender Results Result Diagram: 12/02/18828 Results 24hrs Laboratory Tests Test 12/02/18 08:29 Sodium Level 140 Potassium Level 2.9 *L Chloride Level 98 Carbon Dioxide Level 31 Anion Gap 11 Blood Urea Nitrogen 42 H Creatinine 1.52 H Est Glomerular Filtrat Rate mL/min Glucose Level 115 Calcium Level 8.4 Medications Medication Current Medications Acetaminophen (Tylenol Tab) 650 mg Q6H PRN PO MILD PAIN(1-3)OR ELEVATED TEMP Last administered on 11/12/18 00:29; Admin Dose 650 MG; Start 11/07/18 at 10:00 Loperamide HCl (Imodium Cap) 2 mg QID PRN PO DIARRHEA Last administered on 11/09/18 02:45; Admin Dose 2 MG; Start 11/07/18 at 10:30 Amiodarone HCl (Cordarone) 100 mg DAILY PO Last administered on 12/02/18 08:14; Admin Dose 100 MG; Start 11/08/18 at 09:00 Apixaban (Eliquis) 2.5 mg BID PO Last administered on 12/02/18 08:14; Admin Dose 2.5 MG; Start 11/07/18 at 12:00 Cholecalciferol (Vitamin D) 2,000 unit DAILY PO Last administered on 12/02/18 08:14; Admin Dose 2,000 UNIT; Start 11/08/18 at 09:00 Donepezil HCl (Aricept) 10 mg DAILY PO Last administered on 12/02/18 08:15; Admin Dose 10 MG; Start 11/08/18 at 09:00 Escitalopram Oxalate (Lexapro) 20 mg DAILY PO Last administered on 12/02/18 08:15; Admin Dose 20 MG; Start 11/08/18 at 09:00 EZETIMIBE (Zetia) 10 mg DAILY PO Last administered on 12/02/18 08:14; Admin Dose 10 MG; Start 11/08/18 at 09:00 Folic Acid (Folic Acid) 1 mg DAILY PO Last administered on 12/02/18 08:14; Admin Dose 1 MG; Start 11/08/18 at 09:00 Pantoprazole (Protonix Tab) 40 mg DAILY@06 PO Last administered on 12/02/18 06:14; Admin Dose 40 MG; Start 11/08/18 at 06:00 Ondansetron HCl (Zofran Inj) 4 mg Q6H PRN IV NAUSEA AND/OR VOMITING Last administered on 11/29/18 12:51; Admin Dose 4 MG; Start 11/08/18 at 10:30 Lorazepam (Ativan) 0.5 mg Q6H PRN PO ANXIETY Last administered on 11/29/18 20:38; Admin Dose 0.5 MG; Start 11/09/18 at 00:00 Psyllium Hydrophilic Mucilloid (Metamucil) 1 pkt DAILY PO Last administered on 12/02/18 08:13; Admin Dose 1 PKT; Start 11/10/18 at 09:00 Zolpidem Tartrate (Ambien) 5 mg HS PRN PO INSOMNIA Last administered on 11/23/18 20:34; Admin Dose 5 MG; Start 11/23/18 at 18:00 Metoprolol Succinate (Toprol Xl) 100 mg BID PO Last administered on 12/02/18 08:15; Admin Dose 100 MG; Start 11/28/18 at 21:00 Allopurinol (Zyloprim) 100 mg BID PO Last administered on 12/02/18 08:16; Admin Dose 100 MG; Start 11/30/18 at 09:00 Hydralazine HCl (Apresoline) 10 mg BID PO Last administered on 12/02/18 08:15; Admin Dose 10 MG; Start 11/30/18 at 21:00 Levothyroxine Sodium (Synthroid) 50 mcg DAILY@0600 PO Last administered on 12/02/18 06:14; Admin Dose 50 MCG; Start 12/01/18 at 06:00 Megestrol Acetate (Megace Susp) 400 mg QAM PO Last administered on 12/02/18 08:13; Admin Dose 400 MG; Start 12/01/18 at 09:00 Melatonin (Melatonin) 5 mg HS PO Last administered on 12/01/18 21:19; Admin Do se 5 MG; Start 11/30/18 at 21:00 Petrolatum (Vaseline) 1 applic BID TOP Last administered on 12/02/18 11:56; Admin Dose 1 APPLIC; Start 12/02/18 at 11:00 Potassium Chloride (Klor-Con 20) 20 meq BID PO ; Start 12/02/18 at 21:00 Bumetanide 12 mg/ Dextrose/Water 120 ml @ 10 mls/hr Q12H ONCE IV Last administered on 12/02/18at 13:00; Admin Dose 10 MLS/HR; Start 12/02/18 at 13:00; Stop 12/03/18 at 00:59 HOMERO ISAACS Dec 02, 2018 14:10
[2018-12-02 15:34] VITALS: BP 125/67; PULSE 86; RESP 20
[2018-12-02 20:32] VITALS: BP 134/64; PULSE 102; RESP 18
[2018-12-02] MEDS: MELATONIN 5 MG TABLET PO SCH (21:45)
[2018-12-02] MEDS: POTASSIUM CHLORIDE (SR) 20 MEQ TAB PO SCH (21:46)
[2018-12-02] MEDS: LORAZEPAM 0.5 MG TAB PO PRN (23:47)
[2018-12-03 00:12] VITALS: BP 128/67; PULSE 95; RESP 18
[2018-12-03 04:32] VITALS: BP 124/59; PULSE 97; RESP 18
[2018-12-03] MEDS: LEVOTHYROXINE 50 MCG TAB PO SCH (05:58)
[2018-12-03] MEDS: PANTOPRAZOLE (EC) 40 MG TAB PO SCH (05:58)
[2018-12-03 07:45] VITALS: BP 112/71; PULSE 85; RESP 17
--- NOTE | 2018-12-03 08:21 | CONS ---
Assessment/Plan Assessment/Plan Hospital Course (Demo Recall) 83 yo female with N/V and diarrhea Daughter states pt is having pebble like stool, dark, unable to tell me black or brown.. HH has been stable, today slightly decreased to 11.7/35.1. She is on eliquis. Pt denies abd pain and nausea. 1. Nausea, vomiting and diarrhea which have subsided now, most probably related to viral infection or of infectious etiology -resolved. 2. Atrial fibrillation for which she is on Eliquis. 3. Status post pacemaker insertion. 4. Dyslipidemia. 5. Hypothyroidism. 6. Hypertension. 7. Fatigue -likely due to depression -lexapro 8. Pedal edema pitting all the way up to knee, has reduced her drastically responded well to diuretics. 9. Coagulopathy may be due to cirrhosis of liver -improved -heme following 10. Abnormal LFT -patient CAT scan shows nodular liver which may be due to cirrhosis and also steatosis is playing a role -Hep panel unremarkable -LFTs wnl now 11. Thrombocytopenia -followed by Dr Ramsay 12. Liver cirrhosis noted in CT scan -HEARD? -hep panel unremarkable. -hepatic autoimmune panel unremarkable Plan Continue present care Pt is on eliquis, monitor HH and for GI bleeding FOB Miralax and docusate Pt examined and plan of care discussed with Dr Merchant Consultation Date/Type/Reason Admit Date/Time Nov 07, 2018 at 12:41 Initial Consult Date 11/12/18 Requesting Provider: REJI KAUFFMAN MD Date/Time of Note DATE: 12/03/18 TIME: 08:16 Exam/Review of Systems Exam Vitals Vital Signs Date Temp Pulse Resp B/P (MAP) Pulse Ox O2 O2 Flow FiO2 Time Delivery Rate 12/03/18 97.5 85 17 112/71 97 07:45 (85) 12/02/18 Nasal 2.0 19:45 Cannula Intake and Output 12/02/18 12/02/18 12/03/18 1414:59 22:59 06:59 IntakeIntake Total 50 ml 100 ml OutputOutput Total 900 ml 600 ml 700 ml BalanceBalance -900 ml -550 ml -600 ml Constitutional: alert, oriented Psych: no complaints Head: normocephalic Eyes: nl sclera, PERRL Respiratory: normal air movement Gastrointestinal: soft, non-tender Musculoskeletal: muscle weakness Results Result Diagram: 12/03/18 0510 12/03/18 0510 Results 24hrs Laboratory Tests Test 12/02/18 08:29 12/03/18 05:10 Sodium Level 140 144 Potassium Level 2.9 *L 3.5 Chloride Level 98 102 Carbon Dioxide Level 31 34 H Anion Gap 11 8 Blood Urea Nitrogen 42 H 37 H Creatinine 1.52 H 1.19 H Est Glomerular Filtrat Rate mL/min Glucose Level 115 96 Calcium Level 8.4 7.9 L White Blood Count 5.4 Red Blood Count 3.56 L Hemoglobin 11.7 L Hematocrit 35.1 L Mean Corpuscular Volume 98.6 Mean Corpuscular Hemoglobin 32.9 Mean Corpuscular Hemoglobin Concent 33.3 Red Cell Distribution Width 19.3 H Platelet Count 118 #L Mean Platelet Volume 10.8 H Immature Granulocytes % 0.200 Neutrophils % 42.6 Lymphocytes % 44.1 Monocytes % 12.3 H Eosinophils % 0.6 Basophils % 0.2 Nucleated Red Blood Cells % 0.0 Immature Granulocytes # 0.010 Neutrophils # 2.3 Lymphocytes # 2.4 Monocytes # 0.7 Eosinophils # 0.0 Basophils # 0.0 Nucleated Red Blood Cells # 0.0 Prothrombin Time 19.1 #H Prothrombin Time Ratio 1.5 INR International Normalized Ratio 1.60 Activated Partial Thromboplast Time 30.9 Magnesium Level 1.7 Total Bilirubin 0.4 Direct Bilirubin 0.00 Indirect Bilirubin 0.4 Aspartate Amino Transf (AST/SGOT) 35 Alanine Aminotransferase (ALT/SGPT) 43 Alkaline Phosphatase 53 B-Type Natriuretic Peptide 6090 H Total Protein 5.5 L Albumin 3.1 L Globulin 2.40 Albumin/Globulin Ratio 1.29 Medications Medication Current Medications Acetaminophen (Tylenol Tab) 650 mg Q6H PRN PO MILD PAIN(1-3)OR ELEVATED TEMP Last administered on 11/12/18at 00:29; Admin Dose 650 MG; Start 11/07/18 at 10:00 Loperamide HCl (Imodium Cap) 2 mg QID PRN PO DIARRHEA Last administered on 11/09/18at 02:45; Admin Dose 2 MG; Start 11/07/18 at 10:30 Amiodarone HCl (Cordarone) 100 mg DAILY PO Last administered on 12/02/18at 08:14; Admin Dose 100 MG; Start 11/08/18 at 09:00 Apixaban (Eliquis) 2.5 mg BID PO Last administered on 12/02/18 21:46; Admin Dose 2.5 MG; Start 11/07/18 at 12:00 Cholecalciferol (Vitamin D) 2,000 unit DAILY PO Last administered on 12/02/18 08:14; Admin Dose 2,000 UNIT; Start 11/08/18 at 09:00 Donepezil HCl (Aricept) 10 mg DAILY PO Last administered on 12/02/18 08:15; Admin Dose 10 MG; Start 11/08/18 at 09:00 Escitalopram Oxalate (Lexapro) 20 mg DAILY PO Last administered on 12/02/18 08:15; Admin Dose 20 MG; Start 11/08/18 at 09:00 EZETIMIBE (Zetia) 10 mg DAILY PO Last administered on 12/02/18 08:14; Admin Dose 10 MG; Start 11/08/18 at 09:00 Folic Acid (Folic Acid) 1 mg DAILY PO Last administered on 12/02/18 08:14; Admin Dose 1 MG; Start 11/08/18 at 09:00 Pantoprazole (Protonix Tab) 40 mg DAILY@06 PO Last administered on 12/03/18 05:58; Admin Dose 40 MG; Start 11/08/18 at 06:00 Ondansetron HCl (Zofran Inj) 4 mg Q6H PRN IV NAUSEA AND/OR VOMITING Last administered on 11/29/18 12:51; Admin Dose 4 MG; Start 11/08/18 at 10:30 Lorazepam (Ativan) 0.5 mg Q6H PRN PO ANXIETY Last administered on 12/02/18 23:47; Admin Dose 0.5 MG; Start 11/09/18 at 00:00 Psyllium Hydrophilic Mucilloid (Metamucil) 1 pkt DAILY PO Last administered on 12/02/18 08:13; Admin Dose 1 PKT; Start 11/10/18 at 09:00 Zolpidem Tartrate (Ambien) 5 mg HS PRN PO INSOMNIA Last administered on 11/23/18 20:34; Admin Dose 5 MG; Start 11/23/18 at 18:00 Metoprolol Succinate (Toprol Xl) 100 mg BID PO Last administered on 12/02/18 21:47; Admin Dose 100 MG; Start 11/28/18 at 21:00 Allopurinol (Zyloprim) 100 mg BID PO Last administered on 12/02/18 21:46; Admin Dose 100 MG; Start 11/30/18 at 09:00 Hydralazine HCl (Apresoline) 10 mg BID PO Last administered on 12/02/18 21:47; Admin Dose 10 MG; Start 11/30/18 at 21:00 Levothyroxine Sodium (Synthroid) 50 mcg DAILY@0600 PO Last administered on 12/03/18 05:58; Admin Dose 50 MCG; Start 12/01/18 at 06:00 Megestrol Acetate (Megace Susp) 400 mg QAM PO Last administered on 12/02/18 08:13; Admin Dose 400 MG; Start 12/01/18 at 09:00 Melatonin (Melatonin) 5 mg HS PO Last administered on 12/02/18 21:45; Admin Dose 5 MG; Start 11/30/18 at 21:00 Petrolatum (Vaseline) 1 applic BID TOP Last administered on 12/02/18 21:55; Admin Dose 1 APPLIC; Start 12/02/18 at 11:00 Potassium Chloride (Klor-Con 20) 20 meq BID PO Last administered on 12/02/18 21:46; Admin Dose 20 MEQ; Start 12/02/18 at 21:00 HEATHER MEDRANO Dec 03, 2018 08:21
[2018-12-03] MEDS: CHOLECALCIFEROL 2,000 UNIT CAP PO SCH (08:34)
[2018-12-03] MEDS: EZETIMIBE 10 MG TAB PO SCH (08:34)
[2018-12-03] MEDS: PETROLATUM 5 GM OINT TOP SCH ×2 (08:34→20:25)
[2018-12-03] MEDS: POTASSIUM CHLORIDE (SR) 20 MEQ TAB PO SCH ×2 (08:34→20:24)
[2018-12-03] MEDS: ESCITALOPRAM 10 MG TAB PO SCH (08:34)
[2018-12-03] MEDS: FOLIC ACID 1 MG TAB PO SCH (08:34)
[2018-12-03] MEDS: ALLOPURINOL 100 MG TAB PO SCH ×2 (08:34→20:24)
[2018-12-03] MEDS: MEGESTROL (40 MG/ML) 10ML CUP PO SCH (08:35)
[2018-12-03] MEDS: APIXABAN 5 MG TABLET PO SCH ×2 (08:35→20:24)
[2018-12-03] MEDS: METOPROLOL (XL) 100 MG TAB PO SCH ×2 (08:35→20:24)
[2018-12-03] MEDS: PSYLLIUM 28% PACKET PO SCH (08:35)
[2018-12-03] MEDS: DONEPEZIL 10 MG TAB PO SCH (08:35)
[2018-12-03] MEDS: AMIODARONE 200 MG TAB PO SCH (08:36)
[2018-12-03] MEDS: POLYETHYLENE GLYCOL 17 GM PACKET PO SCH (09:25)
[2018-12-03] MEDS: DOCUSATE SODIUM 100 MG CAP PO SCH ×2 (09:25→20:24)
[2018-12-03] MEDS ORDERED: POTASSIUM CHLORIDE (SR) 20 MEQ TAB PO STA (11:05)
--- NOTE | 2018-12-03 11:05 | CONS ---
Assessment/Plan Cardiology NYHA: III Heart Failure Type: Acute on Chronic Heart Failure Type: Both Assessment/Plan Hospital Course (Demo Recall) Atrial fibrillation with initially rapid ventricular rates, improved Nausea, vomiting-resolved Acute decompensated systolic and diastolic congestive heart failure Acute kidney injury Mitral and tricuspid valve regurgitation Possible colitis Hypertension Dyslipidemia History of pacemaker Renal function and volume status improving, diuretics as per nephrology Heart rate trend overall stable, continue current dose of beta-carine Titrate hydralazine as blood pressure permits Continue anticoagulation if no contraindication We will order potassium and magnesium supplementation Consultation Date/Type/Reason Admit Date/Time Nov 07, 2018 at 12:41 Initial Consult Date Type of Consult Cardiology Requesting Provider: REJI KAUFFMAN MD Date/Time of Note DATE: 12/03/18 TIME: 11:04 24 HR Interval Summary Free Text/Dictation Denies shortness of breath, feels less swollen, still tired Exam/Review of Systems Vital Signs Vitals Vital Signs Date Temp Pulse Resp B/P (MAP) Pulse Ox O2 O2 Flow FiO2 Time Delivery Rate 12/03/18 97.5 85 17 112/71 97 07:45 (85) 12/02/18 Nasal 2.0 19:45 Cannula Intake and Output 12/02/18 12/02/18 12/03/18 1515:00 23:00 07:00 IntakeIntake Total 50 ml 100 ml OutputOutput Total 900 ml 600 ml 700 ml BalanceBalance -900 ml -550 ml -600 ml Exam Constitutional: alert, oriented (No apparent distress) Head: normocephalic Respiratory: other (Coarse breath sounds bilaterally, no wheezing) Cardiovascular: regular rate and rhythm (Occasional irregularities, S1-S2 heard) Gastrointestinal: soft, non-tender, bowel sounds Extremities: edema Labs Result Diagram: 12/03/18 0510 12/03/18 0510 Results 24hrs Laboratory Tests Test 12/03/18 05:10 White Blood Count 5.4 Red Blood Count 3.56 L Hemoglobin 11.7 L Hematocrit 35.1 L Mean Corpuscular Volume 98.6 Mean Corpuscular Hemoglobin 32.9 Mean Corpuscular Hemoglobin Concent 33.3 Red Cell Distribution Width 19.3 H Platelet Count 118 #L Mean Platelet Volume 10.8 H Immature Granulocytes % 0.200 Neutrophils % 42.6 Lymphocytes % 44.1 Monocytes % 12.3 H Eosinophils % 0.6 Basophils % 0.2 Nucleated Red Blood Cells % 0.0 Immature Granulocytes # 0.010 Neutrophils # 2.3 Lymphocytes # 2.4 Monocytes # 0.7 Eosinophils # 0.0 Basophils # 0.0 Nucleated Red Blood Cells # 0.0 Prothrombin Time 19.1 #H Prothrombin Time Ratio 1.5 INR International Normalized Ratio 1.60 Activated Partial Thromboplast Time 30.9 Sodium Level 144 Potassium Level 3.5 Chloride Level 102 Carbon Dioxide Level 34 H Anion Gap 8 Blood Urea Nitrogen 37 H Creatinine 1.19 H Est Glomerular Filtrat Rate mL/min Glucose Level 96 Calcium Level 7.9 L Magnesium Level 1.7 Total Bilirubin 0.4 Direct Bilirubin 0.00 Indirect Bilirubin 0.4 Aspartate Amino Transf (AST/SGOT) 35 Alanine Aminotransferase (ALT/SGPT) 43 Alkaline Phosphatase 53 B-Type Natriuretic Peptide 6090 H Total Protein 5.5 L Albumin 3.1 L Globulin 2.40 Albumin/Globulin Ratio 1.29 Medications Medications Current Medications Acetaminophen (Tylenol Tab) 650 mg Q6H PRN PO MILD PAIN(1-3)OR ELEVATED TEMP Last administered on 11/12/18 00:29; Admin Dose 650 MG; Start 11/07/18 at 10:00 Loperamide HCl (Imodium Cap) 2 mg QID PRN PO DIARRHEA Last administered on 11/09/18 02:45; Admin Dose 2 MG; Start 11/07/18 at 10:30 Amiodarone HCl (Cordarone) 100 mg DAILY PO Last administered on 12/03/18 08:36; Admin Dose 100 MG; Start 11/08/18 at 09:00 Apixaban (Eliquis) 2.5 mg BID PO Last administered on 12/03/18 08:35; Admin Dose 2.5 MG; Start 11/07/18 at 12:00 Cholecalciferol (Vitamin D) 2,000 unit DAILY PO Last administered on 12/03/18 08:34; Admin Dose 2,000 UNIT; Start 11/08/18 at 09:00 Donepezil HCl (Aricept) 10 mg DAILY PO Last administered on 12/03/18 08:35; Admin Dose 10 MG; Start 11/08/18 at 09:00 Escitalopram Oxalate (Lexapro) 20 mg DAILY PO Last administered on 12/03/18 08:34; Admin Dose 20 MG; Start 11/08/18 at 09:00 EZETIMIBE (Zetia) 10 mg DAILY PO Last administered on 12/03/18 08:34; Admin Dose 10 MG; Start 11/08/18 at 09:00 Folic Acid (Folic Acid) 1 mg DAILY PO Last administered on 12/03/18 08:34; Admin Dose 1 MG; Start 11/08/18 at 09:00 Pantoprazole (Protonix Tab) 40 mg DAILY@06 PO Last administered on 12/03/18 05:58; Admin Dose 40 MG; Start 11/08/18 at 06:00 Ondansetron HCl (Zofran Inj) 4 mg Q6H PRN IV NAUSEA AND/OR VOMITING Last administered on 11/29/18 12:51; Admin Dose 4 MG; Start 11/08/18 at 10:30 Lorazepam (Ativan) 0.5 mg Q6H PRN PO ANXIETY Last administered on 12/02/18 23:47; Admin Dose 0.5 MG; Start 11/09/18 at 00:00 Psyllium Hydrophilic Mucilloid (Metamucil) 1 pkt DAILY PO Last administered on 12/03/18 08:35; Admin Dose 1 PKT; Start 11/10/18 at 09:00 Zolpidem Tartrate (Ambien) 5 mg HS PRN PO INSOMNIA Last administered on 11/23/18 20:34; Admin Dose 5 MG; Start 11/23/18 at 18:00 Metoprolol Succinate (Toprol Xl) 100 mg BID PO Last administered on 12/03/18 08:35; Admin Dose 100 MG; Start 11/28/18 at 21:00 Allopurinol (Zyloprim) 100 mg BID PO Last administered on 12/03/18 08:34; Admin Dose 100 MG; Start 11/30/18 at 09:00 Hydralazine HCl (Apresoline) 10 mg BID PO Last administered on 12/03/18 08:37; Admin Dose 10 MG; Start 11/30/18 at 21:00 Levothyroxine Sodium (Synthroid) 50 mcg DAILY@0600 PO Last administered on 12/03/18 05:58; Admin Dose 50 MCG; Start 12/01/18 at 06:00 Megestrol Acetate (Megace Susp) 400 mg QAM PO Last administered on 12/03/18 08:35; Admin Dose 400 MG; Start 12/01/18 at 09:00 Melatonin (Melatonin) 5 mg HS PO Last administered on 12/02/18 21:45; Admin Dose 5 MG; Start 11/30/18 at 21:00 Petrolatum (Vaseline) 1 applic BID TOP Last administered on 12/03/18 08:34; Admin Dose 1 APPLIC; Start 12/02/18 at 11:00 Potassium Chloride (Klor-Con 20) 20 meq BID PO Last administered on 12/03/18 08:34; Admin Dose 20 MEQ; Start 12/02/18 at 21:00 Polyethylene Glycol (Miralax) 17 gm DAILY PO Last administered on 12/03/18 09:25; Admin Dose 17 GM; Start 12/03/18 at 09:00 Docusate Sodium (Colace) 100 mg BID PO Last administered on 12/03/18 09:25; Admin Dose 100 MG; Start 12/03/18 at 09:00 Perico Mayers DO Dec 03, 2018 11:05
[2018-12-03] MEDS ORDERED: MAGNESIUM SULFATE 2 GM/50 ML 50 ML IVPB ONE (11:30)
--- NOTE | 2018-12-03 11:51 | CONS ---
Assessment/Plan Assessment/Plan Assessment/Plan (Daily) 1. Nonoliguric acute kidney injury on top of chronic kidney disease stage III. Etiology of acute kidney injury is secondary to hemodynamics.pt diuresed well with bumex gtt for 2 days, BUN/Cr 37/1.19- K 3.5- feeling weak and tired , will give another bumex drip 1 mg/hr x 12 hr today then we will consider PO bumex 2. Hypokalemia due to diuresis- KCL to 20mEQ BID 3. Hyperuricemia- conitnue allopurinol 100mg BID 4. Acute on Chronic CHF systolic + diastolic ECHO 11/2018 showed EF 40%, stage II diastolic dysfunction - on Bumex gtt for now 4. Hypernatremia, improved. 5. Mineral bone disorder. Monitor calcium and phosphorus levels. 6. Atrial fibrillation. Continue medical management., on Eliquis for anticoagulation 7. Possible colitis. The patient is completing antibiotic course. 8. Rheumatoid arthritis. Continue to monito Consultation Date/Type/Reason Admit Date/Time Nov 07, 2018 at 12:41 Initial Consult Date 11/09/18 Type of Consult NEPHROLOGY Requesting Provider: REJI KAUFFMAN MD Date/Time of Note DATE: 12/03/18 TIME: 11:51 Exam/Review of Systems Exam Vitals Vital Signs Date Temp Pulse Resp B/P (MAP) Pulse Ox O2 O2 Flow FiO2 Time Delivery Rate 12/03/18 97.5 85 17 112/71 97 07:45 (85) 12/02/18 Nasal 2.0 19:45 Cannula Intake and Output 12/02/18 12/02/18 12/03/18 1515:00 23:00 07:00 IntakeIntake Total 50 ml 100 ml OutputOutput Total 900 ml 600 ml 700 ml BalanceBalance -900 ml -550 ml -600 ml Results Result Diagram: 12/03/18 0510 12/03/18 0510 Results 24hrs Laboratory Tests Test 12/03/18 05:10 White Blood Count 5.4 Red Blood Count 3.56 L Hemoglobin 11.7 L Hematocrit 35.1 L Mean Corpuscular Volume 98.6 Mean Corpuscular Hemoglobin 32.9 Mean Corpuscular Hemoglobin Concent 33.3 Red Cell Distribution Width 19.3 H Platelet Count 118 #L Mean Platelet Volume 10.8 H Immature Granulocytes % 0.200 Neutrophils % 42.6 Lymphocytes % 44.1 Monocytes % 12.3 H Eosinophils % 0.6 Basophils % 0.2 Nucleated Red Blood Cells % 0.0 Immature Granulocytes # 0.010 Neutrophils # 2.3 Lymphocytes # 2.4 Monocytes # 0.7 Eosinophils # 0.0 Basophils # 0.0 Nucleated Red Blood Cells # 0.0 Prothrombin Time 19.1 #H Prothrombin Time Ratio 1.5 INR International Normalized Ratio 1.60 Activated Partial Thromboplast Time 30.9 Sodium Level 144 Potassium Level 3.5 Chloride Level 102 Carbon Dioxide Level 34 H Anion Gap 8 Blood Urea Nitrogen 37 H Creatinine 1.19 H Est Glomerular Filtrat Rate mL/min Glucose Level 96 Calcium Level 7.9 L Magnesium Level 1.7 Total Bilirubin 0.4 Direct Bilirubin 0.00 Indirect Bilirubin 0.4 Aspartate Amino Transf (AST/SGOT) 35 Alanine Aminotransferase (ALT/SGPT) 43 Alkaline Phosphatase 53 B-Type Natriuretic Peptide 6090 H Total Protein 5.5 L Albumin 3.1 L Globulin 2.40 Albumin/Globulin Ratio 1.29 Medications Medication Current Medications Acetaminophen (Tylenol Tab) 650 mg Q6H PRN PO MILD PAIN(1-3)OR ELEVATED TEMP Last administered on 11/12/18 00:29; Admin Dose 650 MG; Start 11/07/18 at 10:00 Loperamide HCl (Imodium Cap) 2 mg QID PRN PO DIARRHEA Last administered on 11/09/18 02:45; Admin Dose 2 MG; Start 11/07/18 at 10:30 Amiodarone HCl (Cordarone) 100 mg DAILY PO Last administered on 12/03/18 08:36; Admin Dose 100 MG; Start 11/08/18 at 09:00 Apixaban (Eliquis) 2.5 mg BID PO Last administered on 12/03/18 08:35; Admin Dose 2.5 MG; Start 11/07/18 at 12:00 Cholecalciferol (Vitamin D) 2,000 unit DAILY PO Last administered on 12/03/18 08:34; Admin Dose 2,000 UNIT; Start 11/08/18 at 09:00 Donepezil HCl (Aricept) 10 mg DAILY PO Last administered on 12/03/18 08:35; Admin Dose 10 MG; Start 11/08/18 at 09:00 Escitalopram Oxalate (Lexapro) 20 mg DAILY PO Last administered on 12/03/18 08:34; Admin Dose 20 MG; Start 11/08/18 at 09:00 EZETIMIBE (Zetia) 10 mg DAILY PO Last administered on 12/03/18 08:34; Admin Dose 10 MG; Start 11/08/18 at 09:00 Folic Acid (Folic Acid) 1 mg DAILY PO Last administered on 12/03/18 08:34; A dmin Dose 1 MG; Start 11/08/18 at 09:00 Pantoprazole (Protonix Tab) 40 mg DAILY@06 PO Last administered on 12/03/18 05:58; Admin Dose 40 MG; Start 11/08/18 at 06:00 Ondansetron HCl (Zofran Inj) 4 mg Q6H PRN IV NAUSEA AND/OR VOMITING Last administered on 11/29/18 12:51; Admin Dose 4 MG; Start 11/08/18 at 10:30 Lorazepam (Ativan) 0.5 mg Q6H PRN PO ANXIETY Last administered on 12/02/18 23:47; Admin Dose 0.5 MG; Start 11/09/18 at 00:00 Psyllium Hydrophilic Mucilloid (Metamucil) 1 pkt DAILY PO Last administered on 12/03/18 08:35; Admin Dose 1 PKT; Start 11/10/18 at 09:00 Zolpidem Tartrate (Ambien) 5 mg HS PRN PO INSOMNIA Last administered on 11/23/18 20:34; Admin Dose 5 MG; Start 11/23/18 at 18:00 Metoprolol Succinate (Toprol Xl) 100 mg BID PO Last administered on 12/03/18 08:35; Admin Dose 100 MG; Start 11/28/18 at 21:00 Allopurinol (Zyloprim) 100 mg BID PO Last administered on 12/03/18 08:34; Admin Dose 100 MG; Start 11/30/18 at 09:00 Hydralazine HCl (Apresoline) 10 mg BID PO Last administered on 12/03/18 08:37; Admin Dose 10 MG; Start 11/30/18 at 21:00 Levothyroxine Sodium (Synthroid) 50 mcg DAILY@0600 PO Last administered on 7/1/19at 05:58; Admin Dose 50 MCG; Start 12/01/18 at 06:00 Megestrol Acetate (Megace Susp) 400 mg QAM PO Last administered on 12/03/18 08:35; Admin Dose 400 MG; Start 12/01/18 at 09:00 Melatonin (Melatonin) 5 mg HS PO Last administered on 12/02/18 21:45; Admin Dose 5 MG; Start 11/30/18 at 21:00 Petrolatum (Vaseline) 1 applic BID TOP Last administered on 12/03/18 08:34; Admin Dose 1 APPLIC; Start 12/02/18 at 11:00 Potassium Chloride (Klor-Con 20) 20 meq BID PO Last administered on 12/03/18 08:34; Admin Dose 20 MEQ; Start 12/02/18 at 21:00 Polyethylene Glycol (Miralax) 17 gm DAILY PO Last administered on 12/03/18 09:25; Admin Dose 17 GM; Start 12/03/18 at 09:00 Docusate Sodium (Colace) 100 mg BID PO Last administered on 12/03/18 09:25; A dmin Dose 100 MG; Start 12/03/18 at 09:00 Magnesium Sulfate 50 ml @ 25 mls/hr ONCE ONCE IVPB Last administered on 12/03/18 11:39; Admin Dose 25 MLS/HR; Start 12/03/18 at 11:30; Stop 12/03/18 at 13:29 BEATRIZ PLEITEZ MD Dec 03, 2018 11:51
[2018-12-03 11:52] VITALS: BP 122/72; PULSE 95; RESP 17
--- NOTE | 2018-12-03 12:58 | CONS ---
Assessment/Plan Assessment/Plan Hospital Course (Demo Recall) #Coagulopathy -pt is noted to have an elevated PT (26sec) and PTT(35 sec). Today patient;s PTT is within normal limits. PT mixing study corrected. This essentially rules out a factor inhibitor. This makes the most likely cause of her coagulopathy her underlying cirrhosis and Vitamin K deficiency -s/p oral Vitamin K 5mg x 3 days -when last checked INR wnl -continue eliquis at this time for afib #Thrombocytopenia -likely 2/2 cirrhosis -platelets did drop slightly but there is no evidence of bleeding. will continue to monitor #Colitis -GI consulted -continue Levaquin and Flagyl #JACKELIN on CKD -management per nephrology #CHF -pt on bumex #Afib -may continue eliquis as mentioned above #HTN -continue current BP meds #RA -management per rheumatology Thank you for the opportunity to participate in this patients care A total of 40 minutes of face to face time was spent speaking with the patient, of which greater than 50% was spent in counseling and coordination of care and the detailed question and answer session. Consultation Date/Type/Reason Admit Date/Time Nov 07, 2018 at 12:41 Initial Consult Date 11/12/18 Type of Consult hematology Reason for Consultation coagulopathy Requesting Provider: REJI KAUFFMAN MD Date/Time of Note DATE: 12/03/18 TIME: 12:18 24 HR Interval Summary Free Text/Dictation today patient was noted to have a mildly low platelet count. there is no evidence of bleeding Constitutional: no complaints Exam/Review of Systems Exam Vitals Vital Signs Date Temp Pulse Resp B/P (MAP) Pulse Ox O2 O2 Flow FiO2 Time Delivery Rate 12/03/18 97.7 95 17 122/72 98 11:52 (89) 12/02/18 Nasal 2.0 19:45 Cannula Intake and Output 12/02/18 12/02/18 12/03/18 1414:59 22:59 06:59 IntakeIntake Total 50 ml 100 ml OutputOutput Total 900 ml 600 ml 700 ml BalanceBalance -900 ml -550 ml -600 ml Constitutional: alert Psych: no complaints Head: normocephalic Eyes: nl conjunctiva ENMT: nl external ears & nose Neck: supple Respiratory: clear to auscultation Cardiovascular: regular rate and rhythm Gastrointestinal: soft Extremities: edema Results Result Diagram: 12/03/18 0510 12/03/18 0510 Results 24hrs Laboratory Tests Test 12/03/18 05:10 White Blood Count 5.4 Red Blood Count 3.56 L Hemoglobin 11.7 L Hematocrit 35.1 L Mean Corpuscular Volume 98.6 Mean Corpuscular Hemoglobin 32.9 Mean Corpuscular Hemoglobin Concent 33.3 Red Cell Distribution Width 19.3 H Platelet Count 118 #L Mean Platelet Volume 10.8 H Immature Granulocytes % 0.200 Neutrophils % 42.6 Lymphocytes % 44.1 Monocytes % 12.3 H Eosinophils % 0.6 Basophils % 0.2 Nucleated Red Blood Cells % 0.0 Immature Granulocytes # 0.010 Neutrophils # 2.3 Lymphocytes # 2.4 Monocytes # 0.7 Eosinophils # 0.0 Basophils # 0.0 Nucleated Red Blood Cells # 0.0 Prothrombin Time 19.1 #H Prothrombin Time Ratio 1.5 INR International Normalized Ratio 1.60 Activated Partial Thromboplast Time 30.9 Sodium Level 144 Potassium Level 3.5 Chloride Level 102 Carbon Dioxide Level 34 H Anion Gap 8 Blood Urea Nitrogen 37 H Creatinine 1.19 H Est Glomerular Filtrat Rate mL/min Glucose Level 96 Calcium Level 7.9 L Magnesium Level 1.7 Total Bilirubin 0.4 Direct Bilirubin 0.00 Indirect Bilirubin 0.4 Aspartate Amino Transf (AST/SGOT) 35 Alanine Aminotransferase (ALT/SGPT) 43 Alkaline Phosphatase 53 B-Type Natriuretic Peptide 6090 H Total Protein 5.5 L Albumin 3.1 L Globulin 2.40 Albumin/Globulin Ratio 1.29 Medications Medication Current Medications Acetaminophen (Tylenol Tab) 650 mg Q6H PRN PO MILD PAIN(1-3)OR ELEVATED TEMP Last administered on 11/12/18at 00:29; Admin Dose 650 MG; Start 11/07/18 at 10:00 Loperamide HCl (Imodium Cap) 2 mg QID PRN PO DIARRHEA Last administered on 11/09/18at 02:45; Admin Dose 2 MG; Start 11/07/18 at 10:30 Amiodarone HCl (Cordarone) 100 mg DAILY PO Last administered on 12/03/18at 08:36; Admin Dose 100 MG; Start 11/08/18 at 09:00 Apixaban (Eliquis) 2.5 mg BID PO Last administered on 12/03/18at 08:35; Admin Dose 2.5 MG; Start 11/07/18 at 12:00 Cholecalciferol (Vitamin D) 2,000 unit DAILY PO Last administered on 12/03/18 08:34; Admin Dose 2,000 UNIT; Start 11/08/18 at 09:00 Donepezil HCl (Aricept) 10 mg DAILY PO Last administered on 12/03/18 08:35; Admin Dose 10 MG; Start 11/08/18 at 09:00 Escitalopram Oxalate (Lexapro) 20 mg DAILY PO Last administered on 12/03/18 08:34; Admin Dose 20 MG; Start 11/08/18 at 09:00 EZETIMIBE (Zetia) 10 mg DAILY PO Last administered on 12/03/18 08:34; Admin Dose 10 MG; Start 11/08/18 at 09:00 Folic Acid (Folic Acid) 1 mg DAILY PO Last administered on 12/03/18 08:34; Admin Dose 1 MG; Start 11/08/18 at 09:00 Pantoprazole (Protonix Tab) 40 mg DAILY@06 PO Last administered on 12/03/18 05:58; Admin Dose 40 MG; Start 11/08/18 at 06:00 Ondansetron HCl (Zofran Inj) 4 mg Q6H PRN IV NAUSEA AND/OR VOMITING Last administered on 11/29/18 12:51; Admin Dose 4 MG; Start 11/08/18 at 10:30 Lorazepam (Ativan) 0.5 mg Q6H PRN PO ANXIETY Last administered on 12/02/18 23:47; Admin Dose 0.5 MG; Start 11/09/18 at 00:00 Psyllium Hydrophilic Mucilloid (Metamucil) 1 pkt DAILY PO Last administered on 12/03/18 08:35; Admin Dose 1 PKT; Start 11/10/18 at 09:00 Zolpidem Tartrate (Ambien) 5 mg HS PRN PO INSOMNIA Last administered on 11/23 20:34; Admin Dose 5 MG; Start 11/23/18 at 18:00 Metoprolol Succinate (Toprol Xl) 100 mg BID PO Last administered on 12/03/18 08:35; Admin Dose 100 MG; Start 11/28/18 at 21:00 Allopurinol (Zyloprim) 100 mg BID PO Last administered on 12/03/18 08:34; Admin Dose 100 MG; Start 11/30/18 at 09:00 Hydralazine HCl (Apresoline) 10 mg BID PO Last administered on 12/03/18 08:37; Admin Dose 10 MG; Start 11/30/18 at 21:00 Levothyroxine Sodium (Synthroid) 50 mcg DAILY@0600 PO Last administered on 05:58; Admin Dose 50 MCG; Start 12/01/18 at 06:00 Megestrol Acetate (Megace Susp) 400 mg QAM PO Last administered on 12/03/18 08:35; Admin Dose 400 MG; Start 12/01/18 at 09:00 Melatonin (Melatonin) 5 mg HS PO Last administered on 12/02/18 21:45; Admin Dose 5 MG; Start 11/30/18 at 21:00 Petrolatum (Vaseline) 1 applic BID TOP Last administered on 12/03/18 08:34; Admin Dose 1 APPLIC; Start 12/02/18 at 11:00 Potassium Chloride (Klor-Con 20) 20 meq BID PO Last administered on 12/03/18 08:34; Admin Dose 20 MEQ; Start 12/02/18 at 21:00 Polyethylene Glycol (Miralax) 17 gm DAILY PO Last administered on 12/03/18 09:25; Admin Dose 17 GM; Start 12/03/18 at 09:00 Docusate Sodium (Colace) 100 mg BID PO Last administered on 12/03/18 09:25; Admin Dose 100 MG; Start 12/03/18 at 09:00 Magnesium Sulfate 50 ml @ 25 mls/hr ONCE ONCE IVPB Last administered on 12/03/18 11:39; Admin Dose 25 MLS/HR; Start 12/03/18 at 11:30; Stop 12/03/18 at 13:29 Bumetanide 12 mg/ Dextrose/Water 120 ml @ 10 mls/hr Q12H ONCE IV ; Start 12/03/18 at 14:00; Stop 12/04/18 at 01:59 CRISTIAN LEBLANC M.D. Dec 03, 2018 12:58
[2018-12-03] MEDS ORDERED: BUMETANIDE 12 MG in DEXTROSE 5% 72 ML IV ONE (14:00)
[2018-12-03 15:55] VITALS: BP 116/59; PULSE 84; RESP 17
--- NOTE | 2018-12-03 17:49 | PN ---
Date/Time of Note Date/Time of Note DATE: 12/03/18 TIME: 17:47 Assessment/Plan VTE Prophylaxis Risk score (from Ns)>0 risk: 7 SCD applied (from Ns): Yes Pharmacological prophylaxis: LMWH Lines/Catheters IV Catheter Type (from Nrsg): Mid Line Central line still needed: Yes Urinary Cath still in place: No Assessment/Plan Hospital Course Patient is awake alert denies any chest pain, generalized edema, patient is continued on IV Bumex. Heart rate is controlled. Patient's condition and plan of care discussed with patient's daughter at the bedside. Assessment/Plan -Left foot cellulitis,resolved. s/p Ancef. -Acute decompensated systolic and diastolic congestive heart failure. -Nonoliguric acute kidney injury on top of chronic kidney disease stage III. Dr. Juárez is following in nephrology consultation. -Coagulopathy most likely to liver cirrhosis and vitamin K deficiency, status post vitamin K, improved. Dr. Ramsay is following in hematology consultation. -Atrial fibrillation with initially rapid ventricular rates, improved, continue metoprolol. Dr Mayers is following in cardiology consultation. -Nausea vomiting and diarrhea for 2 days, resolved. Dr. Merchant is following in gastroenterology consultation. -Colitis per CT scan. S/p Levaquin and Flagyl. 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 Patient unable to undergo MRI due to pacemaker. Dr. Duque is following and podiatry consultation. -Hypertension, continue metoprolol Norvasc and Cozaar -PPM -Hypothyroidism, continue levothyroxine. -Rheumatoid arthritis, Dr Grant is following in rheumatology consultation. Further recommendations based on clinical course. Plan of care discussed with Dr. Rayo. Result Diagram: 12/03/18 0510 12/03/18 0510 Results 24hrs Laboratory Tests Test 12/03/18 05:10 White Blood Count 5.4 Red Blood Count 3.56 L Hemoglobin 11.7 L Hematocrit 35.1 L Mean Corpuscular Volume 98.6 Mean Corpuscular Hemoglobin 32.9 Mean Corpuscular Hemoglobin Concent 33.3 Red Cell Distribution Width 19.3 H Platelet Count 118 #L Mean Platelet Volume 10.8 H Immature Granulocytes % 0.200 Neutrophils % 42.6 Lymphocytes % 44.1 Monocytes % 12.3 H Eosinophils % 0.6 Basophils % 0.2 Nucleated Red Blood Cells % 0.0 Immature Granulocytes # 0.010 Neutrophils # 2.3 Lymphocytes # 2.4 Monocytes # 0.7 Eosinophils # 0.0 Basophils # 0.0 Nucleated Red Blood Cells # 0.0 Prothrombin Time 19.1 #H Prothrombin Time Ratio 1.5 INR International Normalized Ratio 1.60 Activated Partial Thromboplast Time 30.9 Sodium Level 144 Potassium Level 3.5 Chloride Level 102 Carbon Dioxide Level 34 H Anion Gap 8 Blood Urea Nitrogen 37 H Creatinine 1.19 H Est Glomerular Filtrat Rate mL/min Glucose Level 96 Calcium Level 7.9 L Magnesium Level 1.7 Total Bilirubin 0.4 Direct Bilirubin 0.00 Indirect Bilirubin 0.4 Aspartate Amino Transf (AST/SGOT) 35 Alanine Aminotransferase (ALT/SGPT) 43 Alkaline Phosphatase 53 B-Type Natriuretic Peptide 6090 H Total Protein 5.5 L Albumin 3.1 L Globulin 2.40 Albumin/Globulin Ratio 1.29 Exam/Review of Systems Exam Vitals Vital Signs Date Temp Pulse Resp B/P (MAP) Pulse Ox O2 O2 Flow FiO2 Time Delivery Rate 12/03/18 97.3 84 17 116/59 97 15:55 (78) 12/02/18 Nasal 2.0 19:45 Cannula Intake and Output 12/02/18 12/02/18 12/03/18 1515:00 23:00 07:00 IntakeIntake Total 50 ml 100 ml OutputOutput Total 900 ml 600 ml 700 ml BalanceBalance -900 ml -550 ml -600 ml Exam Constitutional: alert, oriented Respiratory: clear to auscultation Cardiovascular: irregular rhythm, other (L chest PPM) Gastrointestinal: soft, non-tender Musculoskeletal: nl extremities to inspection Extremities: normal pulses Neurological: nl mental status Results Results 24hrs Laboratory Tests Test 12/03/18 05:10 White Blood Count 5.4 Red Blood Count 3.56 L Hemoglobin 11.7 L Hematocrit 35.1 L Mean Corpuscular Volume 98.6 Mean Corpuscular Hemoglobin 32.9 Mean Corpuscular Hemoglobin Concent 33.3 Red Cell Distribution Width 19.3 H Platelet Count 118 #L Mean Platelet Volume 10.8 H Immature Granulocytes % 0.200 Neutrophils % 42.6 Lymphocytes % 44.1 Monocytes % 12.3 H Eosinophils % 0.6 Basophils % 0.2 Nucleated Red Blood Cells % 0.0 Immature Granulocytes # 0.010 Neutrophils # 2.3 Lymphocytes # 2.4 Monocytes # 0.7 Eosinophils # 0.0 Basophils # 0.0 Nucleated Red Blood Cells # 0.0 Prothrombin Time 19.1 #H Prothrombin Time Ratio 1.5 INR International Normalized Ratio 1.60 Activated Partial Thromboplast Time 30.9 Sodium Level 144 Potassium Level 3.5 Chloride Level 102 Carbon Dioxide Level 34 H Anion Gap 8 Blood Urea Nitrogen 37 H Creatinine 1.19 H Est Glomerular Filtrat Rate mL/min Glucose Level 96 Calcium Level 7.9 L Magnesium Level 1.7 Total Bilirubin 0.4 Direct Bilirubin 0.00 Indirect Bilirubin 0.4 Aspartate Amino Transf (AST/SGOT) 35 Alanine Aminotransferase (ALT/SGPT) 43 Alkaline Phosphatase 53 B-Type Natriuretic Peptide 6090 H Total Protein 5.5 L Albumin 3.1 L Globulin 2.40 Albumin/Globulin Ratio 1.29 Medications Medication Current Medications Acetaminophen (Tylenol Tab) 650 mg Q6H PRN PO MILD PAIN(1-3)OR ELEVATED TEMP Last administered on 11/12/18 00:29; Admin Dose 650 MG; Start 11/07/18 at 10:00 Loperamide HCl (Imodium Cap) 2 mg QID PRN PO DIARRHEA Last administered on 11/09/18 02:45; Admin Dose 2 MG; Start 11/07/18 at 10:30 Amiodarone HCl (Cordarone) 100 mg DAILY PO Last administered on 12/03/18 08:36; Admin Dose 100 MG; Start 11/08/18 at 09:00 Apixaban (Eliquis) 2.5 mg BID PO Last administered on 12/03/18 08:35; Admin Dose 2.5 MG; Start 11/07/18 at 12:00 Cholecalciferol (Vitamin D) 2,000 unit DAILY PO Last administered on 12/03/18 08:34; Admin Dose 2,000 UNIT; Start 11/08/18 at 09:00 Donepezil HCl (Aricept) 10 mg DAILY PO Last administered on 12/03/18 08:35; Admin Dose 10 MG; Start 11/08/18 at 09:00 Escitalopram Oxalate (Lexapro) 20 mg DAILY PO Last administered on 12/03/18 08:34; Admin Dose 20 MG; Start 11/08/18 at 09:00 EZETIMIBE (Zetia) 10 mg DAILY PO Last administered on 12/03/18 08:34; Admin Dose 10 MG; Start 11/08/18 at 09:00 Folic Acid (Folic Acid) 1 mg DAILY PO Last administered on 12/03/18 08:34; Admin Dose 1 MG; Start 11/08/18 at 09:00 Pantoprazole (Protonix Tab) 40 mg DAILY@06 PO Last administered on 12/03/18 05:58; Admin Dose 40 MG; Start 11/08/18 at 06:00 Ondansetron HCl (Zofran Inj) 4 mg Q6H PRN IV NAUSEA AND/OR VOMITING Last administered on 11/29/18 12:51; Admin Dose 4 MG; Start 11/08/18 at 10:30 Lorazepam (Ativan) 0.5 mg Q6H PRN PO ANXIETY Last administered on 12/02/18 23:47; Admin Dose 0.5 MG; Start 11/09/18 at 00:00 Psyllium Hydrophilic Mucilloid (Metamucil) 1 pkt DAILY PO Last administered on 12/03/18 08:35; Admin Dose 1 PKT; Start 11/10/18 at 09:00 Zolpidem Tartrate (Ambien) 5 mg HS PRN PO INSOMNIA Last administered on 11/23/18 20:34; Admin Dose 5 MG; Start 11/23/18 at 18:00 Metoprolol Succinate (Toprol Xl) 100 mg BID PO Last administered on 12/03/18 08:35; Admin Dose 100 MG; Start 11/28/18 at 21:00 Allopurinol (Zyloprim) 100 mg BID PO Last administered on 12/03/18 08:34; Admin Dose 100 MG; Start 11/30/18 at 09:00 Hydralazine HCl (Apresoline) 10 mg BID PO Last administered on 12/03/18 08:37; Admin Dose 10 MG; Start 11/30/18 at 21:00 Levothyroxine Sodium (Synthroid) 50 mcg DAILY@0600 PO Last administered on 12/03/18 05:58; Admin Dose 50 MCG; Start 12/01/18 at 06:00 Megestrol Acetate (Megace Susp) 400 mg QAM PO Last administered on 12/03/18 08:35; Admin Dose 400 MG; Start 12/01/18 at 09:00 Melatonin (Melatonin) 5 mg HS PO Last administered on 12/02/18 21:45; Admin Dose 5 MG; Start 11/30/18 at 21:00 Petrolatum (Vaseline) 1 applic BID TOP Last administered on 12/03/18 08:34; Admin Dose 1 APPLIC; Start 12/02/18 at 11:00 Potassium Chloride (Klor-Con 20) 20 meq BID PO Last administered on 12/03/18 08:34; Admin Dose 20 MEQ; Start 12/02/18 at 21:00 Polyethylene Glycol (Miralax) 17 gm DAILY PO Last administered on 12/03/18 09:25; Admin Dose 17 GM; Start 12/03/18 at 09:00 Docusate Sodium (Colace) 100 mg BID PO Last administered on 12/03/18 09:25; Admin Dose 100 MG; Start 12/03/18 at 09:00 Bumetanide 12 mg/ Dextrose/Water 120 ml @ 10 mls/hr Q12H ONCE IV Last administered on 12/03/18 14:38; Admin Dose 10 MLS/HR; Start 12/03/18 at 14:00; Stop 12/04/18 at 01:59 OSCAR GAYTAN Dec 03, 2018 17:49
[2018-12-03 20:00] VITALS: BP 134/74; PULSE 96; RESP 18
[2018-12-03] MEDS: MELATONIN 5 MG TABLET PO SCH (20:24)
[2018-12-04] VITALS: BP 127/72; PULSE 95; RESP 18
[2018-12-04] MEDS: LORAZEPAM 0.5 MG TAB PO PRN ×2 (01:00→20:19)
[2018-12-04 04:00] VITALS: BP 130/74; PULSE 103; RESP 20
[2018-12-04] MEDS: LEVOTHYROXINE 50 MCG TAB PO SCH (05:19)
[2018-12-04] MEDS: PANTOPRAZOLE (EC) 40 MG TAB PO SCH (05:19)
[2018-12-04 07:18] VITALS: BP 140/73; PULSE 98; RESP 20
--- NOTE | 2018-12-04 07:46 | CONS ---
Assessment/Plan Assessment/Plan Hospital Course (Demo Recall) 83 yo female with N/V and diarrhea 1. Nausea, vomiting and diarrhea which have subsided now, most probably related to viral infection or of infectious etiology -resolved. 2. Atrial fibrillation for which she is on Eliquis. 3. Status post pacemaker insertion. 4. Dyslipidemia. 5. Hypothyroidism. 6. Hypertension. 7. Fatigue -likely due to depression -lexapro 8. Pedal edema pitting all the way up to knee, has reduced her drastically responded well to diuretics. 9. Coagulopathy may be due to cirrhosis of liver -improved -heme following 10. Abnormal LFT -patient CAT scan shows nodular liver which may be due to cirrhosis and also steatosis is playing a role -Hep panel unremarkable -LFTs wnl now 11. Thrombocytopenia -followed by Dr Ramsay 12. Liver cirrhosis noted in CT scan -HEARD? -hep panel unremarkable. -hepatic autoimmune panel unremarkable Plan Continue present care Pt is on eliquis, monitor HH and for GI bleeding FOB Miralax and docusate Pt examined and plan of care discussed with Dr Merchant Consultation Date/Type/Reason Admit Date/Time Nov 07, 2018 at 12:41 Initial Consult Date 11/12/18 Requesting Provider: REJI KAUFFMAN MD Date/Time of Note DATE: 12/04/18 TIME: 07:45 24 HR Interval Summary Free Text/Dictation No acute changes. No abd pain or N/V. BM qd. Exam/Review of Systems Exam Vitals Vital Signs Date Temp Pulse Resp B/P (MAP) Pulse Ox O2 O2 Flow FiO2 Time Delivery Rate 12/04/18 98.3 98 20 140/73 97 07:18 (95) 12/04/18 Room Air 04:00 12/03/18 2.0 20:00 Intake and Output 12/03/18 12/03/18 12/04/18 1515:00 23:00 07:00 IntakeIntake Total 300 ml 45 ml 75 ml BalanceBalance 300 ml 45 ml 75 ml Constitutional: alert, oriented Psych: no complaints Head: normocephalic Eyes: nl sclera, PERRL Respiratory: normal air movement Gastrointestinal: soft, non-tender Extremities: normal pulses Neurological: nl mental status Results Result Diagram: 12/03/1810 12/04/18526 Results 24hrs Laboratory Tests Test 12/04/18 05:27 Sodium Level 144 Potassium Level 5.4 H Chloride Level 104 Carbon Dioxide Level 31 Anion Gap 9 Blood Urea Nitrogen 41 H Creatinine 1.36 H Est Glomerular Filtrat Rate mL/min Glucose Level 104 Calcium Level 8.6 Medications Medication Current Medications Acetaminophen (Tylenol Tab) 650 mg Q6H PRN PO MILD PAIN(1-3)OR ELEVATED TEMP Last administered on 11/12/18 00:29; Admin Dose 650 MG; Start 11/07/18 at 10:00 Loperamide HCl (Imodium Cap) 2 mg QID PRN PO DIARRHEA Last administered on 11/09/18 02:45; Admin Dose 2 MG; Start 11/07/18 at 10:30 Amiodarone HCl (Cordarone) 100 mg DAILY PO Last administered on 12/03/18 08:36; Admin Dose 100 MG; Start 11/08/18 at 09:00 Apixaban (Eliquis) 2.5 mg BID PO Last administered on 12/03/18 20:24; Admin Dose 2.5 MG; Start 11/07/18 at 12:00 Cholecalciferol (Vitamin D) 2,000 unit DAILY PO Last administered on 12/03/18 08:34; Admin Dose 2,000 UNIT; Start 11/08/18 at 09:00 Donepezil HCl (Aricept) 10 mg DAILY PO Last administered on 12/03/18 08:35; Admin Dose 10 MG; Start 11/08/18 at 09:00 Escitalopram Oxalate (Lexapro) 20 mg DAILY PO Last administered on 12/03/18 08:34; Admin Dose 20 MG; Start 11/08/18 at 09:00 EZETIMIBE (Zetia) 10 mg DAILY PO Last administered on 12/03/18 08:34; Admin Dose 10 MG; Start 11/08/18 at 09:00 Folic Acid (Folic Acid) 1 mg DAILY PO Last administered on 12/03/18 08:34; Admin Dose 1 MG; Start 11/08/18 at 09:00 Pantoprazole (Protonix Tab) 40 mg DAILY@06 PO Last administered on 12/04/18 05 :19; Admin Dose 40 MG; Start 11/08/18 at 06:00 Ondansetron HCl (Zofran Inj) 4 mg Q6H PRN IV NAUSEA AND/OR VOMITING Last administered on 11/29/18 12:51; Admin Dose 4 MG; Start 11/08/18 at 10:30 Lorazepam (Ativan) 0.5 mg Q6H PRN PO ANXIETY Last administered on 12/04/18 01:00; Admin Dose 0.5 MG; Start 11/09/18 at 00:00 Psyllium Hydrophilic Mucilloid (Metamucil) 1 pkt DAILY PO Last administered on 12/03/18 08:35; Admin Dose 1 PKT; Start 11/10/18 at 09:00 Zolpidem Tartrate (Ambien) 5 mg HS PRN PO INSOMNIA Last administered on 11/23/18 20:34; Admin Dose 5 MG; Start 11/23/18 at 18:00 Metoprolol Succinate (Toprol Xl) 100 mg BID PO Last administered on 12/03/18 20:24; Admin Dose 100 MG; Start 11/28/18 at 21:00 Allopurinol (Zyloprim) 100 mg BID PO Last administered on 12/03/18 20:24; Admin Dose 100 MG; Start 11/30/18 at 09:00 Hydralazine HCl (Apresoline) 10 mg BID PO Last administered on 12/03/18 20:24; Admin Dose 10 MG; Start 11/30/18 at 21:00 Levothyroxine Sodium (Synthroid) 50 mcg DAILY@0600 PO Last administered on 12/04/18 05:19; Admin Dose 50 MCG; Start 12/01/18 at 06:00 Megestrol Acetate (Megace Susp) 400 mg QAM PO Last administered on 12/03/18 08:35; Admin Dose 400 MG; Start 12/01/18 at 09:00 Melatonin (Melatonin) 5 mg HS PO Last administered on 12/03/18 20:24; Admin Dose 5 MG; Start 11/30/18 at 21:00 Petrolatum (Vaseline) 1 applic BID TOP Last administered on 12/03/18 20:25; Admin Dose 1 APPLIC; Start 12/02/18 at 11:00 Potassium Chloride (Klor-Con 20) 20 meq BID PO Last administered on 12/03/18 20:24; Admin Dose 20 MEQ; Start 12/02/18 at 21:00 Polyethylene Glycol (Miralax) 17 gm DAILY PO Last administered on 12/03/18at 09:25; Admin Dose 17 GM; Start 12/03/18 at 09:00 Docusate Sodium (Colace) 100 mg BID PO Last administered on 12/03/18at 20:24; Admin Dose 100 MG; Start 12/03/18 at 09:00 HEATHER MEDRANO Dec 04, 2018 07:46
[2018-12-04] MEDS: CHOLECALCIFEROL 2,000 UNIT CAP PO SCH (08:23)
[2018-12-04] MEDS: MEGESTROL (40 MG/ML) 10ML CUP PO SCH (08:23)
[2018-12-04] MEDS: EZETIMIBE 10 MG TAB PO SCH (08:23)
[2018-12-04] MEDS: ALLOPURINOL 100 MG TAB PO SCH ×2 (08:24→20:20)
[2018-12-04] MEDS: PSYLLIUM 28% PACKET PO SCH (08:24)
[2018-12-04] MEDS: DOCUSATE SODIUM 100 MG CAP PO SCH ×2 (08:24→20:19)
[2018-12-04] MEDS: ESCITALOPRAM 10 MG TAB PO SCH (08:24)
[2018-12-04] MEDS: PETROLATUM 5 GM OINT TOP SCH ×2 (08:24→20:20)
[2018-12-04] MEDS: POLYETHYLENE GLYCOL 17 GM PACKET PO SCH (08:24)
[2018-12-04] MEDS: METOPROLOL (XL) 100 MG TAB PO SCH ×2 (08:25→20:20)
[2018-12-04] MEDS: FOLIC ACID 1 MG TAB PO SCH (08:25)
[2018-12-04] MEDS: DONEPEZIL 10 MG TAB PO SCH (08:25)
[2018-12-04] MEDS: AMIODARONE 200 MG TAB PO SCH (08:25)
[2018-12-04] MEDS: POTASSIUM CHLORIDE (SR) 20 MEQ TAB PO SCH (08:26)
[2018-12-04] MEDS: APIXABAN 5 MG TABLET PO SCH ×2 (08:27→20:19)
--- NOTE | 2018-12-04 10:04 | CONS ---
Assessment/Plan Assessment/Plan Assessment/Plan (Daily) 1. Nonoliguric acute kidney injury on top of chronic kidney disease stage III. Etiology of acute kidney injury is secondary to hemodynamics.pt diuresed well with bumex gtt for 2 days, BUN/Cr slightly went up to 41/1.36, K 5.4- stop bumex gtt for today, will start bumex 1 mg PO TID upon dischargem ok to d/c on monday 2. Hypokalemia- now hyperkalemia- stop KCL for now, will monitor it and replace it as needed 3. Hyperuricemia- conitnue allopurinol 100mg BID 4. Acute on Chronic CHF systolic + diastolic ECHO 11/2018 showed EF 40%, stage II diastolic dysfunction - s/p BUmex gtt x 4 days in a row, now off - 4. Hypernatremia, improved. 5. Mineral bone disorder. Monitor calcium and phosphorus levels. 6. Atrial fibrillation. Continue medical management., on Eliquis for anticoagulation 7. Possible colitis. The patient is completing antibiotic course. 8. Rheumatoid arthritis. Continue to monito Consultation Date/Type/Reason Admit Date/Time Nov 07, 2018 at 12:41 Initial Consult Date 11/09/18 Type of Consult NEPHROLOGY Requesting Provider: REJI KAUFFMAN MD Date/Time of Note DATE: 12/04/18 TIME: 10:03 24 HR Interval Summary Free Text/Dictation leg edema improved much better no SOB, on RA, feelign tired and weak Exam/Review of Systems Exam Vitals Vital Signs Date Temp Pulse Resp B/P (MAP) Pulse Ox O2 O2 Flow FiO2 Time Delivery Rate 12/04/18 98.3 98 20 140/73 97 07:18 (95) 12/04/18 Room Air 04:00 12/03/18 2.0 20:00 Intake and Output 12/03/18 12/03/18 12/04/18 1515:00 23:00 07:00 IntakeIntake Total 300 ml 45 ml 75 ml BalanceBalance 300 ml 45 ml 75 ml Exam Constitutional: No distress Neck: + JVD, no LAD Respiratory: bibasilar crackles Cardiovascular: regular rate and rhythm, irregular rhythm Gastrointestinal: soft, non-tender, bowel sounds Extremities: 2+ LE pitting edema, hand swelling +, back swelling + Skin: nl turgor Results Result Diagram: 12/03/18 0510 12/04/18 05 Results 24hrs Laboratory Tests Test 12/04/18 05:27 Sodium Level 144 Potassium Level 5.4 H Chloride Level 104 Carbon Dioxide Level 31 Anion Gap 9 Blood Urea Nitrogen 41 H Creatinine 1.36 H Est Glomerular Filtrat Rate mL/min Glucose Level 104 Calcium Level 8.6 Medications Medication Current Medications Acetaminophen (Tylenol Tab) 650 mg Q6H PRN PO MILD PAIN(1-3)OR ELEVATED TEMP Last administered on 11/12/18 00:29; Admin Dose 650 MG; Start 11/07/18 at 10:00 Loperamide HCl (Imodium Cap) 2 mg QID PRN PO DIARRHEA Last administered on 11/09/18 02:45; Admin Dose 2 MG; Start 11/07/18 at 10:30 Amiodarone HCl (Cordarone) 100 mg DAILY PO Last administered on 12/04/18 08:25; Admin Dose 100 MG; Start 11/08/18 at 09:00 Apixaban (Eliquis) 2.5 mg BID PO Last administered on 12/04/18 08:27; Admin Dose 2.5 MG; Start 11/07/18 at 12:00 Cholecalciferol (Vitamin D) 2,000 unit DAILY PO Last administered on 12/04/18 08:23; Admin Dose 2,000 UNIT; Start 11/08/18 at 09:00 Donepezil HCl (Aricept) 10 mg DAILY PO Last administered on 12/04/18 08:25; Admin Dose 10 MG; Start 11/08/18 at 09:00 Escitalopram Oxalate (Lexapro) 20 mg DAILY PO Last administered on 12/04/18 08:24; Admin Dose 20 MG; Start 11/08/18 at 09:00 EZETIMIBE (Zetia) 10 mg DAILY PO Last administered on 12/04/18 08:23; Admin Dose 10 MG; Start 11/08/18 at 09:00 Folic Acid (Folic Acid) 1 mg DAILY PO Last administered on 12/04/18 08:25; Admin Dose 1 MG; Start 11/08/18 at 09:00 Pantoprazole (Protonix Tab) 40 mg DAILY@06 PO Last administered on 12/04/18 05:19; Admin Dose 40 MG; Start 11/08/18 at 06:00 Ondansetron HCl (Zofran Inj) 4 mg Q6H PRN IV NAUSEA AND/OR VOMITING Last administered on 11/29/18 12:51; Admin Dose 4 MG; Start 11/08/18 at 10:30 Lorazepam (Ativan) 0.5 mg Q6H PRN PO ANXIETY Last administered on 12/04/18 01:00; Admin Dose 0.5 MG; Start 11/09/18 at 00:00 Psyllium Hydrophilic Mucilloid (Metamucil) 1 pkt DAILY PO Last administered on 12/04/18 08:24; Admin Dose 1 PKT; Start 11/10/18 at 09:00 Zolpidem Tartrate (Ambien) 5 mg HS PRN PO INSOMNIA Last administered on 11/23/18 20:34; Admin Dose 5 MG; Start 11/23/18 at 18:00 Metoprolol Succinate (Toprol Xl) 100 mg BID PO Last administered on 12/04/18 08:25; Admin Dose 100 MG; Start 11/28/18 at 21:00 Allopurinol (Zyloprim) 100 mg BID PO Last administered on 12/04/18 08:24; Admin Dose 100 MG; Start 11/30/18 at 09:00 Hydralazine HCl (Apresoline) 10 mg BID PO Last administered on 12/04/18 08:26; Admin Dose 10 MG; Start 11/30/18 at 21:00 Levothyroxine Sodium (Synthroid) 50 mcg DAILY@0600 PO Last administered on 12/04/18 05:19; Admin Dose 50 MCG; Start 12/01/18 at 06:00 Megestrol Acetate (Megace Susp) 400 mg QAM PO Last administered on 12/04/18 08:23; Admin Dose 400 MG; Start 12/01/18 at 09:00 Melatonin (Melatonin) 5 mg HS PO Last administered on 12/03/18 20:24; Admin Dose 5 MG; Start 11/30/18 at 21:00 Petrolatum (Vaseline) 1 applic BID TOP Last administered on 12/04/18 08:24; Admin Dose 1 APPLIC; Start 12/02/18 at 11:00 Potassium Chloride (Klor-Con 20) 20 meq BID PO Last administered on 12/03/18at 20:24; Admin Dose 20 MEQ; Start 12/02/18 at 21:00 Polyethylene Glycol (Miralax) 17 gm DAILY PO Last administered on 12/04/18at 08:24; Admin Dose 17 GM; Start 12/03/18 at 09:00 Docusate Sodium (Colace) 100 mg BID PO Last administered on 12/04/18 08:24; Admin Dose 100 MG; Start 12/03/18 at 09:00 BEATRIZ PLEITEZ MD Dec 04, 2018 10:04
[2018-12-04] MEDS ORDERED: NA POLYST SULFON 15 GM/60 ML BTL PO ONE (11:00)
[2018-12-04 11:21] VITALS: BP 130/72; PULSE 104; RESP 20
--- NOTE | 2018-12-04 13:53 | CONS ---
Assessment/Plan Cardiology NYHA: III Heart Failure Type: Acute on Chronic Heart Failure Type: Both Assessment/Plan Assessment/Plan (Daily) Assessment Atrial fibrillation with initially rapid ventricular rates, improved Nausea, vomiting-resolved Acute decompensated systolic and diastolic congestive heart failure Acute kidney injury Mitral and tricuspid valve regurgitation Possible colitis Hypertension Dyslipidemia History of pacemaker Plan: fluid status improved Consultation Date/Type/Reason Admit Date/Time Nov 07, 2018 at 12:41 Initial Consult Date 11/09/18 Type of Consult Cardiology Requesting Provider: REJI KAUFFMAN MD Date/Time of Note DATE: 12/04/18 TIME: 13:52 Detailed Summary ENT: no complaints Respiratory: no complaints Cardiovascular: no complaints Gastrointestinal: no complaints Musculoskeletal: no complaints Skin: no complaints Neurologic: no complaints Exam/Review of Systems Vital Signs Vitals Vital Signs Date Temp Pulse Resp B/P (MAP) Pulse Ox O2 O2 Flow FiO2 Time Delivery Rate 12/04/18 98.0 104 20 130/72 95 11:21 (91) 12/04/18 Room Air 04:00 12/03/18 2.0 20:00 Intake and Output 12/03/18 12/03/18 12/04/18 1515:00 23:00 07:00 IntakeIntake Total 300 ml 45 ml 75 ml BalanceBalance 300 ml 45 ml 75 ml Exam Constitutional: frail Head: normocephalic, atraumatic Neck: jvd Respiratory: clear to auscultation Cardiovascular: irregular rhythm Musculoskeletal: nl extremities to inspection Labs Result Diagram: 12/03/18 0510 12/04/18 0527 Results 24hrs Laboratory Tests Test 12/04/18 05:27 Sodium Level 144 Potassium Level 5.4 H Chloride Level 104 Carbon Dioxide Level 31 Anion Gap 9 Blood Urea Nitrogen 41 H Creatinine 1.36 H Est Glomerular Filtrat Rate mL/min Glucose Level 104 Calcium Level 8.6 Medications Medications Current Medications Acetaminophen (Tylenol Tab) 650 mg Q6H PRN PO MILD PAIN(1-3)OR ELEVATED TEMP Last administered on 11/12/18at 00:29; Admin Dose 650 MG; Start 11/07/18 at 10:00 Loperamide HCl (Imodium Cap) 2 mg QID PRN PO DIARRHEA Last administered on 11/09/18at 02:45; Admin Dose 2 MG; Start 11/07/18 at 10:30 Amiodarone HCl (Cordarone) 100 mg DAILY PO Last administered on 12/04/18 08:25; Admin Dose 100 MG; Start 11/08/18 at 09:00 Apixaban (Eliquis) 2.5 mg BID PO Last administered on 12/04/18 08:27; Admin Dose 2.5 MG; Start 11/07/18 at 12:00 Cholecalciferol (Vitamin D) 2,000 unit DAILY PO Last administered on 12/04/18 08:23; Admin Dose 2,000 UNIT; Start 11/08/18 at 09:00 Donepezil HCl (Aricept) 10 mg DAILY PO Last administered on 12/04/18 08:25; Admin Dose 10 MG; Start 11/08/18 at 09:00 Escitalopram Oxalate (Lexapro) 20 mg DAILY PO Last administered on 12/04/18 08:24; Admin Dose 20 MG; Start 11/08/18 at 09:00 EZETIMIBE (Zetia) 10 mg DAILY PO Last administered on 12/04/18 08:23; Admin Dose 10 MG; Start 11/08/18 at 09:00 Folic Acid (Folic Acid) 1 mg DAILY PO Last administered on 12/04/18 08:25; Admin Dose 1 MG; Start 11/08/18 at 09:00 Pantoprazole (Protonix Tab) 40 mg DAILY@06 PO Last administered on 12/04/18 05:19; Admin Dose 40 MG; Start 11/08/18 at 06:00 Ondansetron HCl (Zofran Inj) 4 mg Q6H PRN IV NAUSEA AND/OR VOMITING Last administered on 11/29/18 12:51; Admin Dose 4 MG; Start 11/08/18 at 10:30 Lorazepam (Ativan) 0.5 mg Q6H PRN PO ANXIETY Last administered on 12/04/18 01:00; Admin Dose 0.5 MG; Start 11/09/18 at 00:00 Psyllium Hydrophilic Mucilloid (Metamucil) 1 pkt DAILY PO Last administered on 12/04/18 08:24; Admin Dose 1 PKT; Start 11/10/18 at 09:00 Zolpidem Tartrate (Ambien) 5 mg HS PRN PO INSOMNIA Last administered on 6/21/19at 20:34; Admin Dose 5 MG; Start 11/23/18 at 18:00 Metoprolol Succinate (Toprol Xl) 100 mg BID PO Last administered on 12/04/18 08:25; Admin Dose 100 MG; Start 11/28/18 at 21:00 Allopurinol (Zyloprim) 100 mg BID PO Last administered on 12/04/18 08:24; Admin Dose 100 MG; Start 11/30/18 at 09:00 Hydralazine HCl (Apresoline) 10 mg BID PO Last administered on 12/04/18 08:26; Admin Dose 10 MG; Start 11/30/18 at 21:00 Levothyroxine Sodium (Synthroid) 50 mcg DAILY@0600 PO Last administered on 12/04/18 05:19; Admin Dose 50 MCG; Start 12/01/18 at 06:00 Megestrol Acetate (Megace Susp) 400 mg QAM PO Last administered on 12/04/18 08:23; Admin Dose 400 MG; Start 12/01/18 at 09:00 Melatonin (Melatonin) 5 mg HS PO Last administered on 12/03/18 20:24; Admin Dose 5 MG; Start 11/30/18 at 21:00 Petrolatum (Vaseline) 1 applic BID TOP Last administered on 12/04/18 08:24; Adm in Dose 1 APPLIC; Start 12/02/18 at 11:00 Polyethylene Glycol (Miralax) 17 gm DAILY PO Last administered on 12/04/18 08:24; Admin Dose 17 GM; Start 12/03/18 at 09:00 Docusate Sodium (Colace) 100 mg BID PO Last administered on 12/04/18 08:24; Admin Dose 100 MG; Start 12/03/18 at 09:00 BRANDIE LOWRY MD Dec 04, 2018 13:53
--- NOTE | 2018-12-04 14:22 | PN ---
Date/Time of Note Date/Time of Note DATE: 12/04/18 TIME: 14:18 Assessment/Plan VTE Prophylaxis Risk score (from Ns)>0 risk: 7 SCD applied (from [facility] [place] No SCD contraindicated: patient refusal Pharmacological prophylaxis: apixaban Lines/Catheters IV [facility]ter Type [facility]from [facility] Mid Line Central line still needed: Yes Urinary Cath still in place: No Assessment/Plan Hospital Course Patient is status post Bumex drip yesterday, potassium is 5.4 status post Kayexalate, check BMP tomorrow follow-up nephrology recommendations. Assessment/Plan -Left foot cellulitis,resolved. s/p Ancef. -Acute decompensated systolic and diastolic congestive heart failure. -Nonoliguric acute kidney injury on top of chronic kidney disease stage III. Dr. Juárez is following in nephrology consultation. -Coagulopathy most likely to liver cirrhosis and vitamin K deficiency, status post vitamin K, improved. Dr. Ramsay is following in hematology consultation. -Atrial fibrillation with initially rapid ventricular rates, improved, continue metoprolol. Dr Mayers is following in cardiology consultation. -Nausea vomiting and diarrhea for 2 days, resolved. Dr. Merchant is following in gastroenterology consultation. -Colitis per CT scan. S/p Levaquin and Flagyl. 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 Patient unable to undergo MRI due to pacemaker. Dr. Duque is following and podiatry consultation. -Hypertension, continue metoprolol Norvasc and Cozaar -PPM -Hypothyroidism, continue levothyroxine. -Rheumatoid arthritis, Dr Grant is following in rheumatology consultation. Further recommendations based on clinical course. Plan of care discussed with Dr. Rayo. Result Diagram: 12/03/18 0510 12/04/18 0527 Results 24hrs Laboratory Tests Test 12/04/18 05:27 Sodium Level 144 Potassium Level 5.4 H Chloride Level 104 Carbon Dioxide Level 31 Anion Gap 9 Blood Urea Nitrogen 41 H Creatinine 1.36 H Est Glomerular Filtrat Rate mL/min Glucose Level 104 Calcium Level 8.6 Exam/Review of Systems Exam Vitals Vital Signs Date Temp Pulse Resp B/P (MAP) Pulse Ox O2 O2 Flow FiO2 Time Delivery Rate 12/04/18 98.0 104 20 130/72 95 11:21 (91) 12/04/18 Room Air 04:00 12/03/18 2.0 20:00 Intake and Output 12/03/18 12/03/18 12/04/18 1515:00 23:00 07:00 IntakeIntake Total 300 ml 45 ml 75 ml BalanceBalance 300 ml 45 ml 75 ml Exam Constitutional: alert, oriented Respiratory: clear to auscultation Cardiovascular: irregular rhythm, other (L chest PPM) Gastrointestinal: soft, non-tender Musculoskeletal: nl extremities to inspection Extremities: normal pulses Neurological: nl mental status Results Results 24hrs Laboratory Tests Test 12/04/18 05:27 Sodium Level 144 Potassium Level 5.4 H Chloride Level 104 Carbon Dioxide Level 31 Anion Gap 9 Blood Urea Nitrogen 41 H Creatinine 1.36 H Est Glomerular Filtrat Rate mL/min Glucose Level 104 Calcium Level 8.6 Medications Medication Current Medications Acetaminophen (Tylenol Tab) 650 mg Q6H PRN PO MILD PAIN(1-3)OR ELEVATED TEMP Last administered on 11/12/18at 00:29; Admin Dose 650 MG; Start 11/07/18 at 10:00 Loperamide HCl (Imodium Cap) 2 mg QID PRN PO DIARRHEA Last administered on 11/09/18at 02:45; Admin Dose 2 MG; Start 11/07/18 at 10:30 Amiodarone HCl (Cordarone) 100 mg DAILY PO Last administered on 12/04/18at 08:25; Admin Dose 100 MG; Start 11/08/18 at 09:00 Apixaban (Eliquis) 2.5 mg BID PO Last administered on 12/04/18at 08:27; Admin Dose 2.5 MG; Start 11/07/18 at 12:00 Cholecalciferol (Vitamin D) 2,000 unit DAILY PO Last administered on 12/04/18at 08:23; Admin Dose 2,000 UNIT; Start 11/08/18 at 09:00 Donepezil HCl (Aricept) 10 mg DAILY PO Last administered on 12/04/18at 08:25; Admin Dose 10 MG; Start 11/08/18 at 09:00 Escitalopram Oxalate (Lexapro) 20 mg DAILY PO Last administered on 12/04/18at 08:24; Admin Dose 20 MG; Start 11/08/18 at 09:00 EZETIMIBE (Zetia) 10 mg DAILY PO Last administered on 12/04/18 08:23; Admin Dose 10 MG; Start 11/08/18 at 09:00 Folic Acid (Folic Acid) 1 mg DAILY PO Last administered on 12/04/18 08:25; Admin Dose 1 MG; Start 11/08/18 at 09:00 Pantoprazole (Protonix Tab) 40 mg DAILY@06 PO Last administered on 12/04/18 05:19; Admin Dose 40 MG; Start 11/08/18 at 06:00 Ondansetron HCl (Zofran Inj) 4 mg Q6H PRN IV NAUSEA AND/OR VOMITING Last admi nistered on 11/29/18 12:51; Admin Dose 4 MG; Start 11/08/18 at 10:30 Lorazepam (Ativan) 0.5 mg Q6H PRN PO ANXIETY Last administered on 12/04/18 01:00; Admin Dose 0.5 MG; Start 11/09/18 at 00:00 Psyllium Hydrophilic Mucilloid (Metamucil) 1 pkt DAILY PO Last administered on 12/04/18 08:24; Admin Dose 1 PKT; Start 11/10/18 at 09:00 Zolpidem Tartrate (Ambien) 5 mg HS PRN PO INSOMNIA Last administered on 11/23/18 20:34; Admin Dose 5 MG; Start 11/23/18 at 18:00 Metoprolol Succinate (Toprol Xl) 100 mg BID PO Last administered on 12/04/18 08:25; Admin Dose 100 MG; Start 11/28/18 at 21:00 Allopurinol (Zyloprim) 100 mg BID PO Last administered on 12/04/18 08:24; Admin Dose 100 MG; Start 11/30/18 at 09:00 Hydralazine HCl (Apresoline) 10 mg BID PO Last administered on 12/04/18 08:26; Admin Dose 10 MG; Start 11/30/18 at 21:00 Levothyroxine Sodium (Synthroid) 50 mcg DAILY@0600 PO Last administered on 12/04/18 05:19; Admin Dose 50 MCG; Start 12/01/18 at 06:00 Megestrol Acetate (Megace Susp) 400 mg QAM PO Last administered on 12/04/18 08:23; Admin Dose 400 MG; Start 12/01/18 at 09:00 Melatonin (Melatonin) 5 mg HS PO Last administered on 12/03/18 20:24; Admin Dose 5 MG; Start 11/30/18 at 21:00 Petrolatum (Vaseline) 1 applic BID TOP Last administered on 12/04/18 08:24; Admin Dose 1 APPLIC; Start 12/02/18 at 11:00 Polyethylene Glycol (Miralax) 17 gm DAILY PO Last administered on 12/04/18 08:24; Admin Dose 17 GM; Start 12/03/18 at 09:00 Docusate Sodium (Colace) 100 mg BID PO Last administered on 12/04/18 08:24; Admin Dose 100 MG; Start 12/03/18 at 09:00 OSCAR GAYTAN Dec 04, 2018 14:22
[2018-12-04 15:34] VITALS: BP 133/76; PULSE 90; RESP 20
[2018-12-04 20:00] VITALS: BP 144/74; PULSE 88; RESP 20
[2018-12-04] MEDS: MELATONIN 5 MG TABLET PO SCH (20:20)
[2018-12-05 03:37] VITALS: BP 130/68; PULSE 101; RESP 18
[2018-12-05] MEDS: PANTOPRAZOLE (EC) 40 MG TAB PO SCH (05:59)
[2018-12-05] MEDS: LEVOTHYROXINE 50 MCG TAB PO SCH (05:59)
[2018-12-05 07:41] VITALS: BP 134/65; PULSE 92; RESP 18
[2018-12-05] MEDS: POLYETHYLENE GLYCOL 17 GM PACKET PO SCH (09:00)
[2018-12-05] MEDS: DOCUSATE SODIUM 100 MG CAP PO SCH (09:00)
[2018-12-05] MEDS: FOLIC ACID 1 MG TAB PO SCH (09:15)
[2018-12-05] MEDS: EZETIMIBE 10 MG TAB PO SCH (09:15)
[2018-12-05] MEDS: DONEPEZIL 10 MG TAB PO SCH (09:15)
[2018-12-05] MEDS: AMIODARONE 200 MG TAB PO SCH (09:15)
[2018-12-05] MEDS: PETROLATUM 5 GM OINT TOP SCH (09:15)
[2018-12-05] MEDS: MEGESTROL (40 MG/ML) 10ML CUP PO SCH (09:16)
[2018-12-05] MEDS: CHOLECALCIFEROL 2,000 UNIT CAP PO SCH (09:16)
[2018-12-05] MEDS: ALLOPURINOL 100 MG TAB PO SCH (09:16)
[2018-12-05] MEDS: METOPROLOL (XL) 100 MG TAB PO SCH (09:16)
[2018-12-05] MEDS: ESCITALOPRAM 10 MG TAB PO SCH (09:16)
[2018-12-05] MEDS: APIXABAN 5 MG TABLET PO SCH (09:16)
[2018-12-05] MEDS: PSYLLIUM 28% PACKET PO SCH (09:19)
--- NOTE | 2018-12-05 11:17 | CONS ---
Assessment/Plan Assessment/Plan Assessment/Plan (Daily) 1. Nonoliguric acute kidney injury on top of chronic kidney disease stage III. Etiology of acute kidney injury is secondary to hemodynamics.pt diuresed well with bumex gtt for 2 days, BUN/Cr slightly went up to 41/1.36, K 5.4- stop bumex gtt for today, bumex 2 mg pO BID upon discharge ok to d/c home follow up with me in clinic in 1 week after discharge 2. Hypokalemia- now hyperkalemia- stop KCL for now, will monitor it and replace it as needed 3. Hyperuricemia- conitnue allopurinol 100mg BID 4. Acute on Chronic CHF systolic + diastolic ECHO 11/2018 showed EF 40%, stage II diastolic dysfunction - s/p BUmex gtt x 4 days in a row, now off - 4. Hypernatremia, improved. 5. Mineral bone disorder. Monitor calcium and phosphorus levels. 6. Atrial fibrillation. Continue medical management., on Eliquis for anticoagulation 7. Possible colitis. The patient is completing antibiotic course. 8. Rheumatoid arthritis. Continue to monito Consultation Date/Type/Reason Admit Date/Time Nov 07, 2018 at 12:41 Initial Consult Date 11/09/18 Type of Consult NEPHROLOGY Requesting Provider: REJI KAUFFMAN MD Date/Time of Note DATE: 12/05/18 TIME: 11:17 24 HR Interval Summary Free Text/Dictation doing better, BP stable, s/p Bumex gtt for 4 days, less SOB, leg edema better Exam/Review of Systems Exam Vitals Vital Signs Date Temp Pulse Resp B/P (MAP) Pulse Ox O2 O2 Flow FiO2 Time Delivery Rate 12/05/18 98.3 92 18 134/65 99 07:41 (88) 12/04/18 Room Air 20:00 12/03/18 2.0 20:00 Intake and Output 12/04/18 12/04/18 12/05/18 1515:00 23:00 07:00 IntakeIntake Total 650 ml BalanceBalance 650 ml Results Result Diagram: 12/03/18 0510 12/05/18 0512 Results 24hrs Laboratory Tests Test 12/05/18 05:12 Sodium Level 142 Potassium Level 4.1 Chloride Level 102 Carbon Dioxide Level 32 H Anion Gap 8 Blood Urea Nitrogen 43 H Creatinine 1.86 H Est Glomerular Filtrat Rate mL/min Glucose Level 84 Calcium Level 8.8 Medications Medication Current Medications Acetaminophen (Tylenol Tab) 650 mg Q6H PRN PO MILD PAIN(1-3)OR ELEVATED TEMP Last administered on 11/12/18 00:29; Admin Dose 650 MG; Start 11/07/18 at 10:00 Loperamide HCl (Imodium Cap) 2 mg QID PRN PO DIARRHEA Last administered on 11/09/18 02:45; Admin Dose 2 MG; Start 11/07/18 at 10:30 Amiodarone HCl (Cordarone) 100 mg DAILY PO Last administered on 12/05/18 09:15; Admin Dose 100 MG; Start 11/08/18 at 09:00 Apixaban (Eliquis) 2.5 mg BID PO Last administered on 12/05/18 09:16; Admin Dose 2.5 MG; Start 11/07/18 at 12:00 Cholecalciferol (Vitamin D) 2,000 unit DAILY PO Last administered on 12/05/18 09:16; Admin Dose 2,000 UNIT; Start 11/08/18 at 09:00 Donepezil HCl (Aricept) 10 mg DAILY PO Last administered on 12/05/18 09:15; Admin Dose 10 MG; Start 11/08/18 at 09:00 Escitalopram Oxalate (Lexapro) 20 mg DAILY PO Last administered on 12/05/18 09:16; Admin Dose 20 MG; Start 11/08/18 at 09:00 EZETIMIBE (Zetia) 10 mg DAILY PO Last administered on 12/05/18 09:15; Admin Dose 10 MG; Start 11/08/18 at 09:00 Folic Acid (Folic Acid) 1 mg DAILY PO Last administered on 12/05/18 09:15; Admin Dose 1 MG; Start 11/08/18 at 09:00 Pantoprazole (Protonix Tab) 40 mg DAILY@06 PO Last administered on 12/05/18 05:59; Admin Dose 40 MG; Start 11/08/18 at 06:00 Ondansetron HCl (Zofran Inj) 4 mg Q6H PRN IV NAUSEA AND/OR VOMITING Last administered on 11/29/18 12:51; Admin Dose 4 MG; Start 11/08/18 at 10:30 Lorazepam (Ativan) 0.5 mg Q6H PRN PO ANXIETY Last administered on 12/04/18 20:19; Admin Dose 0.5 MG; Start 11/09/18 at 00:00 Psyllium Hydrophilic Mucilloid (Metamucil) 1 pkt DAILY PO Last administered on 12/05/18 09:19; Admin Dose 1 PKT; Start 11/10/18 at 09:00 Zolpidem Tartrate (Ambien) 5 mg HS PRN PO INSOMNIA Last administered on 11/23/18 20:34; Admin Dose 5 MG; Start 11/23/18 at 18:00 Metoprolol Succinate (Toprol Xl) 100 mg BID PO Last administered on 12/05/18 09:16; Admin Dose 100 MG; Start 11/28/18 at 21:00 Allopurinol (Zyloprim) 100 mg BID PO Last administered on 12/05/18 09:16; Admin Dose 100 MG; Start 11/30/18 at 09:00 Hydralazine HCl (Apresoline) 10 mg BID PO Last administered on 12/05/18 09:16; Admin Dose 10 MG; Start 11/30/18 at 21:00 Levothyroxine Sodium (Synthroid) 50 mcg DAILY@0600 PO Last administered on 12/05/18 05:59; Admin Dose 50 MCG; Start 12/01/18 at 06:00 Megestrol Acetate (Megace Susp) 400 mg QAM PO Last administered on 12/05/18 09:16; Admin Dose 400 MG; Start 12/01/18 at 09:00 Melatonin (Melatonin) 5 mg HS PO Last administered on 12/04/18 20:20; Admin Dose 5 MG; Start 11/30/18 at 21:00 Petrolatum (Vaseline) 1 applic BID TOP Last administered on 12/05/18 09:15; Admin Dose 1 APPLIC; Start 12/02/18 at 11:00 Polyethylene Glycol (Miralax) 17 gm DAILY PO Last administered on 12/04/18 08:24; Admin Dose 17 GM; Start 12/03/18 at 09:00 Docusate Sodium (Colace) 100 mg BID PO Last administered on 12/04/18 20:19; Admin Dose 100 MG; Start 12/03/18 at 09:00 BEATRIZ PLEITEZ MD Dec 05, 2018 11:17
[2018-12-05] MEDS ORDERED: POTASSIUM CHLORIDE (SR) 20 MEQ TAB PO SCH (11:30)
[2018-12-05] MEDS ORDERED: BUMETANIDE 1 MG TAB PO SCH (11:30)
--- NOTE | 2018-12-05 11:39 | PDOCDIS ---
Discharge Instructions CONDITION [id number] Patient Condition: [id number] Good HOME CARE INSTRUCTIONS: [id number] Special Diet: [id number] Heart healthy Renal diet ACTIVITY: [id number] Activity Restrictions: [id number] Slowly Increase Activity Rest between Activity Avoid heavy lifting Avoid Heavy Housework FOLLOW UP/APPOINTMENTS Follow-up Plan Follow up with PCP in 1-2 week, Follow up with Cardiology in 2 week, Follow up with DR.Kalpesh Pleitez ) next week on 12/11/18 BEATRIZ PLEITEZ MD Dec 05, 2018 11:39
[2018-12-05] MEDS ORDERED: HYDR-3670 PO (11:44)
[2018-12-05] MEDS ORDERED: ALLO100T PO (11:44)
[2018-12-05] MEDS ORDERED: BUME1TAB PO (11:44)
[2018-12-05] MEDS ORDERED: AMIO200T4 PO (11:44)
[2018-12-05] MEDS ORDERED: METO-336 PO (11:44)
[2018-12-05] MEDS ORDERED: POTA20TA15 PO (11:44)
--- NOTE | 2018-12-05 11:48 | CONS ---
Assessment/Plan Assessment/Plan Hospital Course (Demo Recall) #Coagulopathy -pt is noted to have an elevated PT (26sec) and PTT(35 sec). Today patient;s PTT is within normal limits. PT mixing study corrected. This essentially rules out a factor inhibitor. This makes the most likely cause of her coagulopathy her underlying cirrhosis and Vitamin K deficiency -s/p oral Vitamin K 5mg x 3 days -when last checked INR wnl -continue eliquis at this time for afib #Thrombocytopenia -likely 2/2 cirrhosis -platelets did drop slightly but there is no evidence of bleeding. will continue to monitor #Colitis -GI consulted -continue Levaquin and Flagyl #JACKELIN on CKD -management per nephrology #CHF -pt on bumex #Afib -may continue eliquis as mentioned above #HTN -continue current BP meds #RA -management per rheumatology Thank you for the opportunity to participate in this patients care A total of 40 minutes of face to face time was spent speaking with the patient, of which greater than 50% was spent in counseling and coordination of care and the detailed question and answer session. Consultation Date/Type/Reason Admit Date/Time Nov 07, 2018 at 12:41 Initial Consult Date 11/12/18 Type of Consult hematology Reason for Consultation coagulopathy Requesting Provider: REJI KAUFFMAN MD Date/Time of Note DATE: 12/05/18 TIME: 11:46 24 HR Interval Summary Free Text/Dictation no acute overnight events Exam/Review of Systems Exam Vitals Vital Signs Date Temp Pulse Resp B/P (MAP) Pulse Ox O2 O2 Flow FiO2 Time Delivery Rate 12/05/18 98.3 92 18 134/65 99 07:41 (88) 12/04/18 Room Air 20:00 12/03/18 2.0 20:00 Intake and Output 12/04/18 12/04/18 12/05/18 1515:00 23:00 07:00 IntakeIntake Total 650 ml BalanceBalance 650 ml Constitutional: alert, oriented Head: normocephalic, atraumatic Eyes: nl conjunctiva ENMT: nl external ears & nose Neck: supple Respiratory: clear to auscultation Cardiovascular: regular rate and rhythm Gastrointestinal: soft Extremities: edema Results Result Diagram: 12/03/18 0510 12/05/18 0512 Results 24hrs Laboratory Tests Test 12/05/18 05:12 Sodium Level 142 Potassium Level 4.1 Chloride Level 102 Carbon Dioxide Level 32 H Anion Gap 8 Blood Urea Nitrogen 43 H Creatinine 1.86 H Est Glomerular Filtrat Rate mL/min Glucose Level 84 Calcium Level 8.8 Medications Medication Current Medications Acetaminophen (Tylenol Tab) 650 mg Q6H PRN PO MILD PAIN(1-3)OR ELEVATED TEMP Last administered on 11/12/18 00:29; Admin Dose 650 MG; Start 11/07/18 at 10:00 Loperamide HCl (Imodium Cap) 2 mg QID PRN PO DIARRHEA Last administered on 11/09/18 02:45; Admin Dose 2 MG; Start 11/07/18 at 10:30 Amiodarone HCl (Cordarone) 100 mg DAILY PO Last administered on 12/05/18 09:15; Admin Dose 100 MG; Start 11/08/18 at 09:00 Apixaban (Eliquis) 2.5 mg BID PO Last administered on 12/05/18 09:16; Admin Dose 2.5 MG; Start 11/07/18 at 12:00 Cholecalciferol (Vitamin D) 2,000 unit DAILY PO Last administered on 12/05/18 09:16; Admin Dose 2,000 UNIT; Start 11/08/18 at 09:00 Donepezil HCl (Aricept) 10 mg DAILY PO Last administered on 12/05/18 09:15; Admin Dose 10 MG; Start 11/08/18 at 09:00 Escitalopram Oxalate (Lexapro) 20 mg DAILY PO Last administered on 12/05/18 09:16; Admin Dose 20 MG; Start 11/08/18 at 09:00 EZETIMIBE (Zetia) 10 mg DAILY PO Last administered on 12/05/18 09:15; Admin Dose 10 MG; Start 11/08/18 at 09:00 Folic Acid (Folic Acid) 1 mg DAILY PO Last administered on 12/05/18 09:15; Admin Dose 1 MG; Start 11/08/18 at 09:00 Pantoprazole (Protonix Tab) 40 mg DAILY@06 PO Last administered on 12/05/18 05:59; Admin Dose 40 MG; Start 11/08/18 at 06:00 Ondansetron HCl (Zofran Inj) 4 mg Q6H PRN IV NAUSEA AND/OR VOMITING Last administered on 11/29/18 12:51; Admin Dose 4 MG; Start 11/08/18 at 10:30 Lorazepam (Ativan) 0.5 mg Q6H PRN PO ANXIETY Last administered on 12/04/18 20:19; Admin Dose 0.5 MG; Start 11/09/18 at 00:00 Psyllium Hydrophilic Mucilloid (Metamucil) 1 pkt DAILY PO Last administered on 12/05/18 09:19; Admin Dose 1 PKT; Start 11/10/18 at 09:00 Zolpidem Tartrate (Ambien) 5 mg HS PRN PO INSOMNIA Last administered on 11/23/18 20:34; Admin Dose 5 MG; Start 11/23/18 at 18:00 Metoprolol Succinate (Toprol Xl) 100 mg BID PO Last administered on 12/05/18 09:16; Admin Dose 100 MG; Start 11/28/18 at 21:00 Allopurinol (Zyloprim) 100 mg BID PO Last administered on 12/05/18 09:16; Admin Dose 100 MG; Start 11/30/18 at 09:00 Hydralazine HCl (Apresoline) 10 mg BID PO Last administered on 12/05/18 09:16; Admin Dose 10 MG; Start 11/30/18 at 21:00 Levothyroxine Sodium (Synthroid) 50 mcg DAILY@0600 PO Last administered on 12/05/18 05:59; Admin Dose 50 MCG; Start 12/01/18 at 06:00 Megestrol Acetate (Megace Susp) 400 mg QAM PO Last administered on 12/05/18 09 :16; Admin Dose 400 MG; Start 12/01/18 at 09:00 Melatonin (Melatonin) 5 mg HS PO Last administered on 12/04/18 20:20; Admin Dose 5 MG; Start 11/30/18 at 21:00 Petrolatum (Vaseline) 1 applic BID TOP Last administered on 12/05/18 09:15; Admin Dose 1 APPLIC; Start 12/02/18 at 11:00 Polyethylene Glycol (Miralax) 17 gm DAILY PO Last administered on 12/04/18 08:24; Admin Dose 17 GM; Start 12/03/18 at 09:00 Docusate Sodium (Colace) 100 mg BID PO Last administered on 12/04/18at 20:19; Admin Dose 100 MG; Start 12/03/18 at 09:00 Bumetanide (Bumex) 2 mg BID DIURETICS PO ; Start 12/05/18 at 11:30 Potassium Chloride (Klor-Con 20) 20 meq DAILY PO ; Start 12/05/18 at 11:30 CRISTIAN LEBLANC M.D. Dec 05, 2018 11:48
[2018-12-05 12:00] VITALS: BP 136/77; PULSE 99; RESP 18
--- NOTE | 2018-12-05 15:01 | CONS ---
Assessment/Plan Cardiology NYHA: III Heart Failure Type: Acute on Chronic Heart Failure Type: Both Assessment/Plan Hospital Course (Demo Recall) Atrial fibrillation with initially rapid ventricular rates, improved Nausea, vomiting-resolved Acute decompensated systolic and diastolic congestive heart failure Acute kidney injury Mitral and tricuspid valve regurgitation Possible colitis Hypertension Dyslipidemia History of pacemaker Heart rate trend overall stable, continue current dose of beta-carine Titrate hydralazine as blood pressure permits Diuretics as per nephrology Continue anticoagulation if no contraindication Consultation Date/Type/Reason Admit Date/Time Nov 07, 2018 at 12:41 Initial Consult Date Type of Consult Cardiology Requesting Provider: REJI KAUFFMAN MD Date/Time of Note DATE: 12/05/18 TIME: 14:59 24 HR Interval Summary Free Text/Dictation Shortness of breath is improving. Denies chest pain, palpitations Exam/Review of Systems Vital Signs Vitals Vital Signs Date Temp Pulse Resp B/P (MAP) Pulse Ox O2 O2 Flow FiO2 Time Delivery Rate 12/05/18 98.3 99 18 136/77 92 12:00 (96) 12/04/18 Room Air 20:00 12/03/18 2.0 20:00 Intake and Output 12/04/18 12/04/18 12/05/18 1414:59 22:59 06:59 IntakeIntake Total 650 ml BalanceBalance 650 ml Exam Constitutional: alert, oriented Respiratory: other (Coarse breath sounds bilaterally, no wheezing) Cardiovascular: regular rate and rhythm (S1-S2 heard) Gastrointestinal: soft, non-tender, bowel sounds Extremities: edema Labs Result Diagram: 12/03/18 0510 12/05/18 0512 Results 24hrs Laboratory Tests Test 12/05/18 05:12 Sodium Level 142 Potassium Level 4.1 Chloride Level 102 Carbon Dioxide Level 32 H Anion Gap 8 Blood Urea Nitrogen 43 H Creatinine 1.86 H Est Glomerular Filtrat Rate mL/min Glucose Level 84 Calcium Level 8.8 Medications Medications Current Medications Acetaminophen (Tylenol Tab) 650 mg Q6H PRN PO MILD PAIN(1-3)OR ELEVATED TEMP Last administered on 11/12/18at 00:29; Admin Dose 650 MG; Start 11/07/18 at 10:00 Loperamide HCl (Imodium Cap) 2 mg QID PRN PO DIARRHEA Last administered on 11/09/18at 02:45; Admin Dose 2 MG; Start 11/07/18 at 10:30 Amiodarone HCl (Cordarone) 100 mg DAILY PO Last administered on 12/05/18 09:15; Admin Dose 100 MG; Start 11/08/18 at 09:00 Apixaban (Eliquis) 2.5 mg BID PO Last administered on 12/05/18 09:16; Admin Dose 2.5 MG; Start 11/07/18 at 12:00 Cholecalciferol (Vitamin D) 2,000 unit DAILY PO Last administered on 12/05/18 09:16; Admin Dose 2,000 UNIT; Start 11/08/18 at 09:00 Donepezil HCl (Aricept) 10 mg DAILY PO Last administered on 12/05/18 09:15; Admin Dose 10 MG; Start 11/08/18 at 09:00 Escitalopram Oxalate (Lexapro) 20 mg DAILY PO Last administered on 12/05/18 09:16; Admin Dose 20 MG; Start 11/08/18 at 09:00 EZETIMIBE (Zetia) 10 mg DAILY PO Last administered on 12/05/18 09:15; Admin Dose 10 MG; Start 11/08/18 at 09:00 Folic Acid (Folic Acid) 1 mg DAILY PO Last administered on 12/05/18 09:15; Admin Dose 1 MG; Start 11/08/18 at 09:00 Pantoprazole (Protonix Tab) 40 mg DAILY@06 PO Last administered on 12/05/18 05:59; Admin Dose 40 MG; Start 11/08/18 at 06:00 Ondansetron HCl (Zofran Inj) 4 mg Q6H PRN IV NAUSEA AND/OR VOMITING Last administered on 11/29/18 12:51; Admin Dose 4 MG; Start 11/08/18 at 10:30 Lorazepam (Ativan) 0.5 mg Q6H PRN PO ANXIETY Last administered on 12/04/18 20:19; Admin Dose 0.5 MG; Start 11/09/18 at 00:00 Psyllium Hydrophilic Mucilloid (Metamucil) 1 pkt DAILY PO Last administered on 12/05/18 09:19; Admin Dose 1 PKT; Start 11/10/18 at 09:00 Zolpidem Tartrate (Ambien) 5 mg HS PRN PO INSOMNIA Last administered on 11/23/18 20:34; Admin Dose 5 MG; Start 11/23/18 at 18:00 Metoprolol Succinate (Toprol Xl) 100 mg BID PO Last administered on 12/05/18 09:16; Admin Dose 100 MG; Start 11/28/18 at 21:00 Allopurinol (Zyloprim) 100 mg BID PO Last administered on 12/05/18 09:16; Admin Dose 100 MG; Start 11/30/18 at 09:00 Hydralazine HCl (Apresoline) 10 mg BID PO Last administered on 12/05/18 09:16; Admin Dose 10 MG; Start 11/30/18 at 21:00 Levothyroxine Sodium (Synthroid) 50 mcg DAILY@0600 PO Last administered on 12/05/18 05:59; Admin Dose 50 MCG; Start 12/01/18 at 06:00 Megestrol Acetate (Megace Susp) 400 mg QAM PO Last administered on 12/05/18 09:16; Admin Dose 400 MG; Start 12/01/18 at 09:00 Melatonin (Melatonin) 5 mg HS PO Last administered on 12/04/18 20:20; Admin Dose 5 MG; Start 11/30/18 at 21:00 Petrolatum (Vaseline) 1 applic BID TOP Last administered on 12/05/18 09:15; Admin Dose 1 APPLIC; Start 12/02/18 at 11:00 Polyethylene Glycol (Miralax) 17 gm DAILY PO Last administered on 12/04/18 08:24; Admin Dose 17 GM; Start 12/03/18 at 09:00 Docusate Sodium (Colace) 100 mg BID PO Last administered on 12/04/18 20:19; Admin Dose 100 MG; Start 12/03/18 at 09:00 Bumetanide (Bumex) 2 mg BID DIURETICS PO Last administered on 12/05/18 12:09; Admin Dose 2 MG; Start 12/05/18 at 11:30 Potassium Chloride (Klor-Con 20) 20 meq DAILY PO Last administered on 12/05/18 12:09; Admin Dose 20 MEQ; Start 12/05/18 at 11:30 Perico Mayers DO Dec 05, 2018 15:00
--- NOTE | 2018-12-05 18:11 | DS ---
Date/Time of Note Date/Time of Note DATE: 12/05/18 TIME: 18:08 Discharge Summary Admission/Discharge Info Admit Date/Time Nov 07, 2018 at 12:41 Discharge Date/Time Dec 05, 2018 at 15:05 Patient Condition: Stable Hx of Present Illness Patient is 83-year-old female with history of congestive heart failure, hypertension, atrial fibrillation, PPM, hyperlipidemia, thyroidism, dementia, rheumatoid arthritis was brought from home for complaints of vomiting and diarrhea for 2 days and generalized weakness. Patient follows with Dr. Kamara in cardiology consultation as an outpatient and according to patient's daughters had recent angiogram which was negative. Patient also complains of productive sputum however no cough patient denies any fever chills. Patient had difficulty urinating earlier today however currently is able to urinate. Patient underwent CT of the abdomen and pelvis which revealed nonspecific colitis and right basilar atelectasis/infiltrate, and septal nodular contour of the liver which can be seen in settings of cirrhosis. Patient denies history of hepatitis or alcohol use. Analysis is positive for leukocyte esterase and bacteria. Patient is admitted for further evaluation and management. Hospital Course Patient discharged home with home health RN and PT services -Hyperkalemia, resolved -Left foot cellulitis,resolved. s/p Ancef. -Acute decompensated systolic and diastolic congestive heart failure. -Nonoliguric acute kidney injury on top of chronic kidney disease stage III. Dr. Juárez is following in nephrology consultation. -Coagulopathy most likely to liver cirrhosis and vitamin K deficiency, status post vitamin K, improved. Dr. Ramsay is following in hematology consultation. -Atrial fibrillation with initially rapid ventricular rates, improved, continue metoprolol. Dr Mayers is following in cardiology consultation. -Nausea vomiting and diarrhea for 2 days, resolved. Dr. Merchant is following in gastroenterology consultation. -Colitis per CT scan. S/p Levaquin and Flagyl. 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 Patient unable to undergo MRI due to pacemaker. Dr. Duque is following and podiatry consultation. -Hypertension, continue metoprolol Norvasc and Cozaar -PPM -Hypothyroidism, continue levothyroxine. -Rheumatoid arthritis, Dr Grant is following in rheumatology consultation. Plan of care discussed with Dr. Rayo. Home Meds Active Scripts Allopurinol* (Allopurinol*) 100 Mg Tablet, 100 MG PO DAILY, #90 TAB Prov:BEATRIZ JUÁREZ MD 12/05/18 Potassium Chloride* (K-Dur*) 20 Meq Tab.prt.sr, 20 MEQ PO DAILY, #90 TAB Prov:BEATRIZ JUÁREZ MD 12/05/18 Bumetanide* (Bumetanide*) 1 Mg Tablet, 2 MG PO BID DIURETICS, #180 TAB Prov:BEATRIZ JUÁREZ MD 12/05/18 Metoprolol Succinate* (Toprol XL*) 100 Mg Tab.sr.24h, 100 MG PO BID, #180 TAB Prov:BEATRZI JUÁREZ MD 12/05/18 Hydralazine Hcl* (Hydralazine Hcl*) 10 Mg Tablet, 25 MG PO BID for 90 Days, #180 TAB Prov:BEATRIZ JUÁREZ MD 12/05/18 Amiodarone Hcl* (Amiodarone Hcl*) 200 Mg Tablet, 100 MG PO DAILY for 90 Days, #90 TAB Prov:BEATRIZ JUÁREZ MD 12/05/18 Reported Medications Icosapent Ethyl (VASCEPA) 1 Gm Capsule, 1 GM PO QID, CAP 11/07/18 Linaclotide (LINZESS) 145 Mcg Capsule, 145 MCG PO DAILY, #30 CAP 11/07/18 Ferrous Sulfate* (Ferrous Sulfate*) 325 Mg Tabec, 325 MG PO TID, TAB 11/07/18 Cholecalciferol (Vitamin D3) (VITAMIN D-3) 2,000 Unit Capsule, 2000 UNIT PO, CAP 11/07/18 Esomeprazole Magnesium (Esomeprazole Magnesium) 20 Mg Capsule.dr, 20 MG PO BEFORE BREAKFAST, #30 CAP 11/07/18 Escitalopram Oxalate* (Escitalopram Oxalate*) 20 Mg Tablet, 20 MG PO DAILY, #30 TAB 11/07/18 Calcium Carbonate* (Calcium Carbonate*) 600 MG Ca Tab, 600 MG PO, TAB 11/07/18 Folic Acid* (Folic Acid*) 1 Mg Tablet, 1 MG PO DAILY, TAB 11/07/18 Apixaban* (Eliquis*) 2.5 Mg Tablet, 2.5 MG PO BID, TAB 11/07/18 Ezetimibe* (Zetia*) 10 Mg Tablet, 10 MG PO DAILY, TAB 11/07/18 Donepezil* (Donepezil*) 10 Mg Tablet, 10 MG PO DAILY, #30 TAB 11/07/18 Levocetirizine Dihydrochloride (LEVOCETIRIZINE DIHYDROCHLORIDE) 1 Gm Powder, 1 GM MC 05/03/16 Infliximab (Remicade) 100 Mg Soln, 100 MG IV 6 WEEKS 12/14/11 Levothyroxine Sodium (Levothroid) 25 Mcg Tablet, 25 MCG PO DAILY 12/14/11 Simvastatin (Simvastatin) 20 Mg Tablet, 20 MG PO DAILY 12/14/11 Lorazepam* (Ativan*) 0.5 Mg Tablet, 0.5 MG PO DAILY 12/14/11 Omeprazole* (Omeprazole*) 20 Mg Capsule.dr, 20 MG PO AC MEALS AND BEDTIME 12/14/11 Methotrexate Sodium (Methotrexate) 2.5 Mg/Dose-Pack Tab.ds.pk, 2.5 MG PO DAILY 12/14/11 Aspirin Ec (Aspir 81) 81 Mg Tablet.dr, 81 MG PO DAILY 12/14/11 Discontinued Reported Medications Furosemide* (Furosemide*) 20 Mg Tablet, 20 MG PO DAILY, #60 TAB 11/07/18 Diclofenac Sodium* (Diclofenac Sodium*) 75 Mg Tablet.dr, 75 MG PO BID, #60 TAB 11/07/18 Losartan Potassium* (Losartan Potassium*) 100 Mg Tablet, 100 MG PO DAILY, TAB 11/07/18 Metoprolol Tartrate* (Lopressor*) 100 Mg Tablet, 200 MG PO BID, #120 TAB 11/07/18 Amiodarone Hcl* (Amiodarone Hcl*) 200 Mg Tablet, 100 MG PO BID for [id number], #60 TAB 11/07/18 Amlodipine Besylate* (Norvasc*) 5 Mg Tablet, 5 MG PO DAILY, TAB 11/07/18 Follow-up Plan Follow up with PCP in 1-2 week, Follow up with Cardiology in 2 week, Follow up with DR.Kalpesh Juárez ) next week on 12/11/18 Primary Care Provider Not On Staff Doctor Time spent on discharge: > 30 minutes Pending Labs Laboratory Tests Test 12/05/18 05:12 Sodium Level 142 mmol/L (135-144) Potassium Level 4.1 mmol/L (3.5-5.1) Chloride Level 102 mmol/L (97-110) Carbon Dioxide Level 32 mmol/L (21-31) Anion Gap 8 (5-13) Blood Urea Nitrogen 43 mg/dl (7-20) Creatinine 1.86 mg/dl (0.44-1.00) Est Glomerular Filtrat Rate mL/min mL/min (>60) Glucose Level 84 mg/dl (70-220) Calcium Level 8.8 mg/dl (8.4-10.2) OSCAR GAYTAN Dec 05, 2018 18:10
== END 2018-12-05 15:05 | disposition home health service (06) | DRG 391 ==
LOC: E/R 21:55 → PP2 11-07 04:47 → EDBEDREQ 11-07 07:16 → OBSVTOIN 11-07 12:41 → ICU 11-08 11:28 → 6WM 11-08 22:50
PROVIDERS: ADMIT Internal Medicine; ATTEND Internal Medicine
DX: A08.4 Viral intestinal infection, unspecified (principal); I50.43 Acute on chronic combined systolic (congestive) and diastolic (congestive) heart failure; I13.0 Hypertensive heart and chronic kidney disease with heart failure and stage 1 through stage 4 chronic kidney disease, or unspecified chronic kidney disease; N17.9 Acute kidney failure, unspecified; D68.9 Coagulation defect, unspecified; E87.0 Hyperosmolality and hypernatremia; L03.116 Cellulitis of left lower limb; N39.0 Urinary tract infection, site not specified; E87.5 Hyperkalemia; I48.91 Unspecified atrial fibrillation; N18.3 Chronic kidney disease, stage 3 (moderate); M06.9 Rheumatoid arthritis, unspecified; K74.60 Unspecified cirrhosis of liver; E03.9 Hypothyroidism, unspecified; E78.5 Hyperlipidemia, unspecified; E87.6 Hypokalemia; Z79.02 Long term (current) use of antithrombotics/antiplatelets; Z95.0 Presence of cardiac pacemaker
CPT/HCPCS: 36415; 36600; 71045; 74176; 80048; 80053; 81001; 82103; 82390; 82525; 82803; 83690; 83735; 83880; 84100; 84439; 84443; 84484; 84560; 85025; 85335; 85610; 85730; 86038; 86255; 86704; 86709; 86803; 87045; 87081; 87086; 87177; 87340; 93005; 93306; 93970; 93971; 97110; 97116; 97162; 97530; G0378; J0690; J0744; J1940; J2405; J3475; J3480; J7040; J7042; P9047